=== PATIENT | male | born 1960 | race Hispanic/Latino ===

== ENCOUNTER 2021-07-15 14:52 | Inpatient (IN) | payer BC ==
[2021-07-15 15:41] LABS: Absolute Lymphocytes (CBC) 0.8 K/uL (0.7-4.9); Basophils % 0.9 % (0-1.3); Hematocrit 26.1 % (39.6-49.0); Lymphocytes % 12.6 % (15.3-44.8); MPV 7.2 fL (7.6-11.3); RBC Red Blood Cell Count 2.84 M/uL (4.33-5.43)
--- NOTE | 2021-07-15 15:41 | RAD REPORT ---
EXAM DESCRIPTION: RAD - Chest Single View - 07/15/2021 3:36 pm CLINICAL HISTORY: CHEST PAIN Chest pain. COMPARISON: No comparisons FINDINGS: Portable technique limits examination quality. Mild interstitial pulmonary edema seen. The heart is upper limit normal in size. No displaced fractur es. IMPRESSION: Mild CHF.
[2021-07-15 15:44] LABS: Protime INR 1.08
[2021-07-15 17:04] LABS: Albumin 3.8 g/dL (3.4-5.0); Bilirubin Direct 0.1 mg/dL (0-0.2); Bilirubin Total 0.4 mg/dL (0.2-1.0); Magnesium 2.2 mg/dL (1.8-2.4); Potassium 5.4 mmol/L (3.5-5.1); Protein, Total 8.1 g/dL (6.4-8.2); Troponin (Emerg Dept Use Only) 0.23 ng/mL (0.0-0.045)
--- NOTE | 2021-07-15 17:18 | ER ---
Nurse's Notes [facility] Name: Ivan Parra Age: 61 yrs Sex: Male : 1960 Arrival Date: 07/15/2021 Time: 14:54 Bed 17 Private MD: Diagnosis: Unspecified combined systolic (congestive) and diastolic (congestive) heart failure;Hyperkalemia;Hyponatremia;Chest pain, unspecified-elevated troponin Presentation: 07/15 15:05 Chief complaint: Patient states: Chest pain began today, the middle of my chest hurts. ld1 Pt c/o chills and SOB. "I have recently been at [facility], low sodium and kidney damage.". Coronavirus screen: At this time, the client does not indicate any symptoms associated with coronavirus-19. Ebola Screen: No symptoms or risks identified at this time. Initial Sepsis Screen: Does the patient meet any 2 criteria? No. Patient's initial sepsis screen is negative. Does the patient have a suspected source of infection? No. Patient's initial sepsis screen is negative. Risk Assessment: Do you want to hurt yourself or someone else? Patient reports no desire to harm self or others. Onset of symptoms was July 15, 2021. 15:05 Method Of Arrival: Ambulatory ld1 15:05 Acuity: KERWIN 3 ld1 Triage Assessment: 15:09 General: Appears in no apparent distress. comfortable, Behavior is calm, cooperative, ld1 appropriate for age. Pain: Complains of pain in chest Pain does not radiate. Pain currently is 8 out of 10 on a pain scale. Quality of pain is described as stabbing, Pain began 2-3 days ago. Is continuous. Cardiovascular: Capillary refill < 3 seconds Patient's skin is warm and dry. Respiratory: Airway is patent Respiratory effort is even, unlabored, Respiratory pattern is regular, symmetrical. GI: Abdomen is round non-distended. Musculoskeletal: Reports pain in chest. Historical: - Allergies: 15:09 No Known Allergies; ld1 - Home Meds: 17:08 lisinopril 10 mg Oral tab 1 tab once daily [Active]; amlodipine 10 mg tab 1 tab once iw daily [Active]; Jentadueto XR 2.5-1,000 mg oral TBph 1 tab once daily [Active]; icosapent ethyl 1 gram oral cap 2 caps 2 times per day [Active]; rosuvastatin 40 mg oral cpSP 1 cap once daily [Active]; levocetirizine 5 mg oral tab 1 tab once daily [Active]; ferrous sulfate 325 mg (65 mg iron) Oral tab 1 tab once daily [Active]; aspirin 81 mg Oral chew 1 tab once daily [Active]; cholecalciferol (vitamin D3) oral daily [Active]; febuxostat 40 mg oral tab 1 tab once daily [Active]; - PMHx: 15:09 Kidney disease; Hypertensive disorder; Diabetes mellitus; Hypercholesterolemia; ld1 - PSHx: 17:10 kidney biopsy; iw - Immunization history:: Adult Immunizations up to date, Client reports receiving the 2nd dose of the Covid vaccine. - Social history:: Smoking status: Patient denies any tobacco usage or history of. Patient/guardian denies using alcohol. Screenin:26 Abuse screen: Denies threats or abuse. Denies injuries from another. Nutritional iw screening: No deficits noted. Tuberculosis screening: No symptoms or risk factors identified. Fall Risk IV access (20 points). Assessment: 17:01 Reassessment: Patient appears in no apparent distress at this time. Patient and/or iw family updated on plan of care and expected duration. Pain level reassessed. Patient is alert, oriented x 3, equal unlabored respirations, skin warm/dry/pink. pt still with mildly labored breathing but states he is feeling a little better. 19:45 General: Appears in no apparent distress. Behavior is calm, cooperative, Resting in bed cc4 \\T\\ talking to family member \\T\\ bedside; voices no complaints; watching TV intermittently; sinus tachycardia with no ventricular ectopy noted; VR 104; RR 22.. Respiratory: Airway is patent Breath sounds are clear bilaterally. GI: Abdomen is non-distended, Bowel sounds present X 4 quads. : voiding 800 ml clear yellow urine with no stated difficulty via urinal. EENT: Eyes clear. Nares are clear Oral mucosa is moist. Derm: No signs and/or symptoms reported regarding the dermatologic system. Skin is intact. Musculoskeletal: No signs and/or symptoms reported regarding the musculoskeletal system. Capillary refill < 3 seconds, Range of motion: intact in all extremities, Swelling Scant edema noted BLE. Vital Signs: 15:05 BP 146 / 89; Pulse 110; Resp 22; Temp 97.4(TE); Pulse Ox 98% on R/A; Weight 83.46 kg; ld1 Height 5 ft. 8 in. (172.72 cm); Pain 8/10; 17:00 BP 134 / 78; Pulse 101; Resp 24; Pulse Ox 95% on R/A; iw 18:18 BP 139 / 76; Pulse 106; Resp 18; Temp 97.8(O); Pulse Ox 95% ; sl2 19:45 BP 130 / 74; Pulse 104; Resp 22; Temp 98.2; Pulse Ox 96% on R/A; sl2 20:30 BP 122 / 71; Pulse 103; Resp 20; Pulse Ox 95% on R/A; cc4 21:30 BP 136 / 76; Pulse 109; Resp 20; Pulse Ox 95% on R/A; cc4 15:05 Body Mass Index 27.98 (83.46 kg, 172.72 cm) ld1 Vitals: 19:45 Cardiac Rhythm Assessment Regular Sinus tach. cc4 ED Course: 14:54 Patient arrived in ED. as 15:08 Karen Shaikh FNP-C is PHCP. kb 15:08 Josue Morley MD is Attending Physician. kb 15:09 Triage completed. ld1 15:09 Arm band placed on right wrist. ld1 15:13 EKG completed in triage. Results shown to . ld1 15:13 Inserted saline lock: 20 gauge in left antecubital area, using aseptic technique. Blood ld1 collected. 15:25 Maryana Isbell, RN is Primary Nurse. iw 15:26 XRAY Chest (1 view) Sent. iw 15:36 XRAY Chest (1 view) In Process Unspecified. [facility] 16:25 SARS-COV-2 RT PCR Sent. [facility] 16:25 COVID-19 SARS RT PCR (Document "Date of Onset" if Symptomatic) Sent. [facility] 17:01 Patient has correct armband on for positive identification. Placed in gown. Bed in low 5 position. Call light in reach. Side rails up X 1. Adult w/ patient. Warm blanket given. critical care rn on. Pulse ox on. NIBP on. 17:01 Initial lab(s) drawn, by ED staff, sent to lab. EKG done, by ED staff, reviewed by roya Morley MD. 17:16 Augusto Herrera is Hospitalizing Provider. kb 18:54 No provider procedures requiring assistance completed. Patient maintains SpO2 iw saturation greater than 95% on room air. 18:54 Patient admitted, IV remains in place. iw 19:15 Primary Nurse role handed off by Maryana Isbell, RN mw2 19:35 Chuyita Hernandez, RN is Primary Nurse. sl2 19:54 UR SODIUM Sent. sl2 19:54 Urine Osmolality Sent. sl2 Administered Medications: 18:20 Drug: Albuterol 2.5 mg Route: Inhalation; iw 19:45 Follow up: Response: No adverse reaction; Wheezing diminished cc4 18:20 Drug: Aspirin Chewable Tablet 324 mg Route: PO; iw 21:35 Follow up: Response: No adverse reaction cc4 18:21 Drug: Kayexalate (polystyrene) 45 grams Route: PO; iw 21:35 Follow up: Response: No adverse reaction cc4 18:21 Drug: Lasix (furosemide) 40 mg Route: IVP; Site: left antecubital; iw 19:45 Follow up: Urine output 800 ml cc4 21:35 Follow up: Urine output 200 ml cc4 Output: 19:45 Urine: 800ml; Total: 800ml. cc4 21:35 Urine: 200ml; Total: 1000ml. cc4 Outcome: 17:17 Decision to Hospitalize by Provider. kb 21:35 Admitted to Med/surg accompanied by tech, via stretcher, room 209, Report called to pawel Ernst RN. 21:35 Condition: improved 21:35 Instructed on the need for admit, Demonstrated understanding of instructions. Signatures: Dispatcher [employer] ED[facility] Karen Shaikh, SKEIN BANDER-C SKEIN BANDER-Angie Shetty as Maryana Isbell, RN TANNER Trudi Morales [facility] Ike Alejandro mw2 Elodia Cartwright RN RN 1 Nya Butcher RN RN cc4 Chuyita Hernandez, TANNER RN sl2 Corrections: (The following items were deleted from the chart) 07/16 04:34 11 21:40 Patient left the ED. cc4 cc4
--- NOTE | 2021-07-15 17:18 | EDPHYS ---
Physician Documentation [facility] Name: Ivan Parra Age: 61 yrs Sex: Male : 1960 Arrival Date: 07/15/2021 Time: 14:54 Bed 17 Private MD: ED Physician Josue Morley HPI: 07/15 18:26 This 61 yrs old Male presents to ER via Ambulatory with complaints of Chest kb Pain, Shortness Of Breath. 18:26 The patient or guardian reports chest pain that is located primarily in the substernal kb area. Onset: last night. The pain does not radiate. Associated signs and symptoms: Pertinent positives: lower extremity swelling, shortness of breath. The chest pain is described as a heaviness, a pressure. Duration: The patient or guardian reports a single episode, that is still ongoing. Modifying factors: The symptoms are alleviated by nothing. the symptoms are aggravated by nothing. Severity of pain: At its worst the pain was mild moderate in the emergency department the pain is unchanged. The patient has not experienced similar symptoms in the past. The patient has not recently seen a physician. Pt reports lower extremities edema and dyspnea on exertion for a couple of weeks. States the edema gets better after elevating feet on pillows at night. Started having substernal chest pain last night. . Historical: - Allergies: 15:09 No Known Allergies; ld1 - Home Meds: 17:08 lisinopril 10 mg Oral tab 1 tab once daily [Active]; amlodipine 10 mg tab 1 tab once iw daily [Active]; Jentadueto XR 2.5-1,000 mg oral TBph 1 tab once daily [Active]; icosapent ethyl 1 gram oral cap 2 caps 2 times per day [Active]; rosuvastatin 40 mg oral cpSP 1 cap once daily [Active]; levocetirizine 5 mg oral tab 1 tab once daily [Active]; ferrous sulfate 325 mg (65 mg iron) Oral tab 1 tab once daily [Active]; aspirin 81 mg Oral chew 1 tab once daily [Active]; cholecalciferol (vitamin D3) oral daily [Active]; febuxostat 40 mg oral tab 1 tab once daily [Active]; - PMHx: 15:09 Kidney disease; Hypertensive disorder; Diabetes mellitus; Hypercholesterolemia; ld1 - PSHx: 17:10 kidney biopsy; iw - Immunization history:: Adult Immunizations up to date, Client reports receiving the 2nd dose of the Covid vaccine. - Social history:: Smoking status: Patient denies any tobacco usage or history of. Patient/guardian denies using alcohol. ROS: 18:24 Constitutional: Negative for fever, chills, and weight loss. kb 18:24 Cardiovascular: Positive for chest pain, edema, Negative for orthopnea, palpitations, paroxysmal nocturnal dyspnea. 18:24 Respiratory: Positive for dyspnea on exertion. 18:24 All other systems are negative. Exam: 18:25 Constitutional: This is a well developed, well nourished patient who is awake, alert, kb and in no acute distress. Head/Face: Normocephalic, atraumatic. ENT: Moist Mucous membranes Respiratory: Respirations even and unlabored. No increased work of breathing, no retractions or nasal flaring. Abdomen/GI: Soft, non-tender. No distention Skin: Warm, dry with normal turgor. Normal color. MS/ Extremity: Pulses equal, no cyanosis. Neurovascular intact. Full, normal range of motion. Neuro: Awake and alert, GCS 15, oriented to person, place, time, and situation. Moves all extremities. Normal gait. Psych: Awake, alert, with orientation to person, place and time. Behavior, mood, and affect are within normal limits. 18:25 Cardiovascular: Rate: normal, Rhythm: regular, Pulses: no pulse deficits are appreciated, Heart sounds: normal, Edema: mild edema to lower extremities. Vital Signs: 15:05 BP 146 / 89; Pulse 110; Resp 22; Temp 97.4(TE); Pulse Ox 98% on R/A; Weight 83.46 kg; ld1 Height 5 ft. 8 in. (172.72 cm); Pain 8/10; 17:00 BP 134 / 78; Pulse 101; Resp 24; Pulse Ox 95% on R/A; iw 18:18 BP 139 / 76; Pulse 106; Resp 18; Temp 97.8(O); Pulse Ox 95% ; sl2 19:45 BP 130 / 74; Pulse 104; Resp 22; Temp 98.2; Pulse Ox 96% on R/A; sl2 20:30 BP 122 / 71; Pulse 103; Resp 20; Pulse Ox 95% on R/A; cc4 21:30 BP 136 / 76; Pulse 109; Resp 20; Pulse Ox 95% on R/A; cc4 15:05 Body Mass Index 27.98 (83.46 kg, 172.72 cm) ld1 MDM: 15:08 Patient medically screened. kb 18:18 Data reviewed: vital signs, nurses notes. Data interpreted: Pulse oximetry: on room air kb is 95 %. Interpretation: normal. Counseling: I had a detailed discussion with the patient and/or guardian regarding: the historical points, exam findings, and any diagnostic results supporting the discharge/admit diagnosis, lab results, radiology results, the need for further work-up and treatment in the hospital. 07/15 15:08 Order name: Basic Metabolic Panel; Complete Time: 17:08 kb 07/15 15:08 Order name: CBC with Diff; Complete Time: 15:43 kb 07/15 15:08 Order name: LFT's; Complete Time: 17:08 kb 07/15 15:08 Order name: Magnesium; Complete Time: 17:08 kb 07/15 15:08 Order name: NT PRO-BNP; Complete Time: 17:08 kb 07/15 15:08 Order name: PT-INR; Complete Time: 15:48 kb 07/15 15:08 Order name: Troponin (emerg Dept Use Only); Complete Time: 17:08 kb 07/15 15:08 Order name: XRAY Chest (1 view); Complete Time: 15:43 kb 07/15 16:21 Order name: COVID-19 SARS RT PCR (Document "Date of Onset" if Symptomatic) kb 07/15 16:22 Order name: SARS-COV-2 RT PCR; Complete Time: 17:51 EDMS 07/15 17:13 Order name: Urine Osmolality kb 07/15 17:15 Order name: Osmolality, Serum; Complete Time: 18:38 EDMS 07/15 17:15 Order name: UR SODIUM EDMS 07/15 21:11 Order name: UR SODIUM; Complete Time: 21:13 EDMS 07/15 15:08 Order name: EKG; Complete Time: 15:09 kb 07/15 15:08 Order name: Cardiac monitoring; Complete Time: 15:25 kb 07/15 15:08 Order name: EKG - Nurse/Tech; Complete Time: 15:11 kb 07/15 15:08 Order name: IV Saline Lock; Complete Time: 15:13 kb 07/15 15:08 Order name: Labs collected and sent; Complete Time: 15:13 kb 07/15 15:08 Order name: O2 Per Protocol; Complete Time: 15:25 kb 07/15 15:08 Order name: O2 Sat Monitoring; Complete Time: 15:25 kb Administered Medications: 18:20 Drug: Albuterol 2.5 mg Route: Inhalation; iw 19:45 Follow up: Response: No adverse reaction; Wheezing diminished cc4 18:20 Drug: Aspirin Chewable Tablet 324 mg Route: PO; iw 21:35 Follow up: Response: No adverse reaction cc4 18:21 Drug: Kayexalate (polystyrene) 45 grams Route: PO; iw 21:35 Follow up: Response: No adverse reaction cc4 18:21 Drug: Lasix (furosemide) 40 mg Route: IVP; Site: left antecubital; iw 19:45 Follow up: Urine output 800 ml cc4 21:35 Follow up: Urine output 200 ml cc4 Disposition: 23:18 Co-signature as Attending Physician, Josue Morley MD I agree with the assessment and yi plan of care. Disposition Summary: 07/15/21 17:17 Hospitalization Ordered Hospitalization Status: Inpatient Admission kb Provider: Augusto Herrera Location: Telemetry/MedSurg (Inpatient) kb Condition: Stable kb Problem: new kb Symptoms: are unchanged kb Bed/Room Type: Standard Room Assignment: 209(07/15/21 18:45) ja1 Diagnosis - Unspecified combined systolic (congestive) and diastolic (congestive) heart failure kb - Hyperkalemia kb - Hyponatremia kb - Chest pain, unspecified - elevated troponin kb Forms: - Medication Reconciliation Form kb - SBAR form kb Signatures: Dispatcher [employer] EDKaren Stacy, AUTOMATION/CONTROLS MANAGER-C AUTOMATION/CONTROLS MANAGER-Ckb Josue Morley MD MD cha Williams, Irene RN RN Isak Combs RN RN [email or web address] Elodia Cartwright RN RN Nya Berg RN cc4 Corrections: (The following items were deleted from the chart) 18:45 17:17 kb ja1 18:47 17:13 Davis ordered. kb iw
[2021-07-15] MEDS ORDERED: ALBUTEROL 2.5 MG/3 ML NEB SOL ONE (18:01)
[2021-07-15] MEDS ORDERED: ASPIRIN 81 MG CHEWABLE TABLET ONE (18:01)
[2021-07-15] MEDS ORDERED: FUROSEMIDE 40 MG/4 ML VIAL ONE (18:02)
[2021-07-15] MEDS ORDERED: SOD POLYSTYREN SUL 15 GM/60 ML UCUP ONE (18:02)
--- NOTE | 2021-07-15 18:32 | P.HP ---
Certification for Inpatient Patient admitted to: Inpatient With expected LOS: >2 Midnights Practitioner: I am a practitioner with admitting privileges, knowledge of patient current condition, hospital course, and medical plan of care. Services: Services provided to patient in accordance with Admission requirements found in Title 42 Section 412.3 of the Code of Federal Regulations Patient History Date of Service: 07/15/21 Reason for admission: Shortness of breath and chest pain History of Present Illness: 61-year-old gentleman with a history of chronic kidney disease, diabetes mellitus, hyponatremia, anemia receiving erythropoietin injections, recently hospitalized for hyponatremia, CHF and chronic kidney disease presented to the emergency department with a complaint of progressive shortness of breath of 2 days duration and sudden onset chest pain this morning. Patient stated he was advised by his tour actor to increase his water intake because of his renal insufficiency. Stated he has developed lower extremity swelling and progressive shortness of breath since increasing his water intake. He also stopped taking lasix. Patient reports sinus the chest pain pain radiating across his chest to his left arm. Chest pain occurred at rest. Lasted only a few min and currently resolved. He was complaining of chest tightness during my examination in the ED. In the ED, initial troponin elevated to 0.2, sodium level of 122 along with hyperkalemia. Chest x-ray showed mild CHF. EKG demonstrated ST T-wave abnormalities in the lateral leads and inferior leads. Hemoglobin of 9. Creatinine elevated to 1.8 along with non-anion gap metabolic acidosis. There is a concern for NSTEMI, CHF exacerbation and hyponatremia. Patient hospitalized for further management. - Past Medical/Surgical History -: Hypertension -: DM type 2 -: Chronic kidney disease -: Hyponatremia - Family History Mother -: Diabetes Father -: Heart disease - Social History Smoking Status: Never smoker Alcohol use: Yes Place of Residence: Home Review of Systems Other: Except as documented, all other systems reviewed and negative. Physical Examination - Physical Exam General: Alert, In no apparent distress, Oriented x3 HEENT: Atraumatic, Mucous membr. moist/pink, Sclerae nonicteric Neck: JVD not distended Respiratory: Clear to auscultation bilaterally, Normal air movement Cardiovascular: Normal S1 S2, Other (Tachycardia), Edema (1+ bilateral lower extremity pitting edema) Capillary refill: <2 Seconds Gastrointestinal: Normal bowel sounds, Soft and benign, Non-distended, No tenderness Musculoskeletal: No clubbing, No tenderness Integumentary: No rashes, No erythema, No cyanosis Neurological: Normal speech, Normal strength at 5/5 x4 extr, Cranial nerves 3-12 intact Lymphatics: No axilla or inguinal lymphadenopathy - Studies Laboratory Data (last 24 hrs) 07/15/21 15:17: PT 12.4, INR 1.08 07/15/21 15:17: WBC 6.10, Hgb 9.1 L, Hct 26.1 L, Plt Count 393 07/15/21 15:17: Sodium 122 L, Potassium 5.4 H, BUN 36 H, Creatinine 1.82 H, Glucose 100, Magnesium 2.2, Total Bilirubin 0.4, AST 27, ALT 53, Alkaline Phosphatase 130 H Assessment and Plan - Problems (Diagnosis) (1) NSTEMI (non-ST elevated myocardial infarction) Current Visit: Yes Status: Acute (2) CHF exacerbation Current Visit: Yes Status: Acute (3) Hyponatremia Current Visit: Yes Status: Acute (4) Chronic kidney disease, stage 3 Current Visit: Yes Status: Acute (5) Metabolic acidosis Current Visit: Yes Status: Acute (6) DM type 2 (diabetes mellitus, type 2) Current Visit: Yes Status: Acute - Plan Admit patient to the medical floor. Start full-dose Lovenox for elevated troponin and EKG showing ST T-wave abnormalities. Start metoprolol 25 mg b.i.d. for sinus tachycardia. Serial troponin Serial EKG. NTG p.r.n. for chest pain. Aspirin 81 mg daily. Cardiology Consult Obtain echocardiogram. Pharmacy consulted for Tolvaptan therapy. Meanwhile, IV Lasix and fluid restriction ordered for CHF and hyponatremia. Monitor BMP every 8 hrs to follow sodium level. Nephrology consult. Monitor CBC to follow hemoglobin. - Advance Directives Does patient have a Living Will: No Does patient have a Durable POA for Healthcare: No
[2021-07-15] MEDS ORDERED: NITROGLYCERIN 0.4 MG/TAB SL PRN (22:36)
[2021-07-15] MEDS ORDERED: MORPHINE 4 MG/ML SYR IV PRN (22:36)
[2021-07-15] MEDS: INSULIN -REGULAR HUMAN 50 UNIT/0.5 ML ML SQ SCH (22:36)
[2021-07-15 22:57] VITALS: BMI 27.9
[2021-07-15] MEDS: METOPROLOL TAR 25 MG TAB PO SCH (23:27)
[2021-07-15] MEDS: ENOXAPARIN 80 MG/0.8 ML SQ SCH (23:28)
[2021-07-16 03:13] LABS: Absolute Lymphocytes (CBC) 0.8 K/uL (0.7-4.9); Basophils % 1.1 % (0-1.3); Hematocrit 21.6 % (39.6-49.0); Lymphocytes % 14.9 % (15.3-44.8); MPV 6.7 fL (7.6-11.3); RBC Red Blood Cell Count 2.38 M/uL (4.33-5.43)
[2021-07-16 03:29] LABS: Potassium 4.1 mmol/L (3.5-5.1)
[2021-07-16] MEDS ORDERED: ACETAMINOPHEN 500 MG TAB PO PRN (05:07)
[2021-07-16] MEDS: INSULIN -REGULAR HUMAN 50 UNIT/0.5 ML ML SQ SCH ×4 (07:30→20:43)
[2021-07-16] MEDS: FUROSEMIDE 40 MG/4 ML VIAL IV SCH ×2 (09:44→18:28)
[2021-07-16] MEDS: ENOXAPARIN 80 MG/0.8 ML SQ SCH (09:44)
[2021-07-16] MEDS: METOPROLOL TAR 25 MG TAB PO SCH (09:44)
[2021-07-16] MEDS: ASPIRIN EC 81 MG TAB PO SCH (09:44)
--- NOTE | 2021-07-16 13:13 | EKG ---
Test Date: 2021-07-15 Test Time: 15:10:00 Aluminizer: JOAQUIN MEASUREMENT RESULTS: Intervals: Rate: 109 NH: 176 QRSD: 90 QT: 324 QTc: 436 G[place]ord: P: 46 NH: 176 QRS: 80 T: -62 INTERPRETIVE STATEMENTS: Sinus tachycardia ST & T wave abnormality, consider inferolateral ischemia Abnormal ECG No previous ECG available for comparison Electronically Signed On 07-16-21 13:10:31 CDT by Cm Schroeder
--- NOTE | 2021-07-16 13:30 | CON ---
Date of Consultation: 07/16/2021 Reason For Consultation: Elevated BUN and creatinine, fluid management. History Of Present Illness: This is a pleasant 61-year-old gentleman with significant past medical history of hypertension, diabetes complicated with neuropathy, no retinopathy, hyperlipidemia, chronic kidney disease stage 3, baseline creatinine as of June 24, 2021, 1.5, GFR of 45, hyponatremia, the patient recently admitted to the hospital at [facility]. At that time, had acute kidney injury secondary to over diuresis. The patient treated, recovered. The patient also had hyponatremia at that time with sodium 118, treated and recovered. The patient follows up with Dr. Edmondson. Because of the low blood pressure, lisinopril has been decreased to 5 mg, amlodipine decreased to 5 mg, was discontinued. The patient was discharged. According to the patient, since discharge started having episode of on and off chest pain, radiating to both shoulders, mostly with exercise, occasionally at rest. The patient's blood pressure has started been elevated. For that reason, discussed with Dr. Edmondson, his senior technical analyst, decided to increase amlodipine to 10 and increase lisinopril to 10 mg. Blood pressure started responding very well. Also, Dr. Edmondson discontinued his Lasix. The patient started having increase in leg swelling. The patient came to the hospital. Upon arrival to the hospital, found to have elevation in BUN and creatinine. Creatinine 1.8, GFR of 38. The patient was over volume. The patient was started on IV Lasix and we have been consulted. The patient denied taking any nonsteroidal. No contrast exposure. Past Medical History: Includes; 1. Hypertension. 2. Hyperlipidemia. 3. Coronary artery disease. Follows up with Dr. Ponce, Cardiology at [place]. According to him, last seen 2 years ago and at that time, stress test was negative. 4. Chronic kidney disease, baseline creatinine 1.5, GFR of 43. 5. Secondary to diabetes nephropathy, hypertension nephrosclerosis. 6. Recurrent hyponatremia. According to Dr. Edmondson, it was depletional. Superimposed with hydrochlorothiazide intake. 7. Diabetes complicated with neuropathy and nephropathy. Allergies: NO KNOWN DRUG ALLERGIES. Social History: Denied smoking. Occasional alcohol. Denied drugs abuse. Family History: Positive for diabetes and CAD. Review of Systems: Head and Neck: No red eye. No ear pain. GI: No nausea. No vomiting. : No polyuria. No dysuria. No hematuria. Filenet Developer: Not applicable. Respiratory: Has shortness of breath. Cardiovascular: Has chest pain. Endocrine: No polydipsia. Skin: No rash. Neuro: Has neuropathy. Musculoskeletal: Generalized body ache. Physical Examination: Vital Signs: When I saw the patient; blood pressure 104/56, pulse of 91, afebrile. Chest: Crackles bilateral base. Heart: S1, S2. Regular. Abdomen: Soft, nontender. Extremity: Trace edema. Neurological: Alert, oriented x3. No focal. Laboratory Data: Chest x-ray; cardiomegaly with congestion. Sodium 128, potassium 4.1, bicarb 22, BUN 39, creatinine 1.8, GFR 38, glucose 72, calcium 8.2. BNP 3900. Phosphorus 3.5. Urinalysis; +1 protein. Renal ultrasound; normal size kidney, 08/24. Assessment And Plan: 1. Acute kidney injury secondary to cardiorenal, over volume. I agree with current diuresis dose and we will monitor the patient. I agree with holding hydrochlorothiazide. We will hold KWESI inhibitor as the patient may expose to cardiac cath and we will monitor. 2. Given the anemia and proteinuria, I am going to send for serum protein electrophoresis and we will quantify the proteinuria. 3. Hypertension with the presence of acute kidney injury. Discontinue KWESI inhibitor. With the presence of low blood pressure, hold all blood pressure medications. We will utilize the blood pressure to establish better volume control. 4. Hyponatremia, mostly dilutional. I agree with Lasix. Keep holding hydrochlorothiazide. We will send for TSH, cortisol, and urine electrolyte. 5. Anemia possible secondary to anemia of chronic kidney disease with the presence of acute kidney injury. I am going to send for protein electrophoresis. We will quantify the proteinuria and we will follow up. 6. Diabetes as by primary. 7. Chest pain, over volume. We will follow up with Cardiology. We will optimize the fluid status. Thank you, Dr. Herrera for allowing us to participate in the care of your patient. Time spent examining the patient, [id number], placing orders, reviewing data, discussing with the steam and power supervisor including Nursing, discussed with other subspecialty including Critical Care and hospitalist 65 minutes. MENG Voice ID: [id number] Report ID: [id number] KAREN
--- NOTE | 2021-07-16 13:56 | ECHO ---
HEIGHT: 5 ft 8 in WEIGHT: 184 lb 0 oz DATE OF STUDY: 07/16/[address]: [email or web address] diop 2-DIMENSIONAL: YES M.MODE: YES DOPPLER: YES COLOR FLOW: YES TDS: NO PORTABLE: NO DEFINITY: NO BUBBLE STUDY: NO DIAGNOSIS: NSTEMI CARDIAC HISTORY: CATHERIZATION: NO SURGERY: NO PROSTHETIC VALVE: NO PACEMAKER: NO MEASUREMENTS (cm) DIASTOLIC (NORMALS) SYSTOLIC (NORMALS) IVSd 1.1 (0.6-1.2) LA Diam 3.7 (1.9-4.0) LVEF 54% LVIDd 4.6 (3.5-5.7) LVIDs 3.3 (2.0-3.5) %FS 28% LVPWd 1.1 (0.6-1.2) Ao Diam 2.9 (2.0-3.7) 2 DIMENSIONAL ASSESSMENT: RIGHT ATRIUM: NORMAL LEFT ATRIUM: NORMAL RIGHT VENTRICLE: NORMAL LEFT VENTRICLE: NORMAL TRICUSPID VALVE: NORMAL MITRAL VALVE: NORMAL PULMONIC VALVE: NORMAL AORTIC VALVE: NORMAL PERICARDIAL EFFUSION: NONE AORTIC ROOT: NORMAL LEFT VENTRICULAR WALL MOTION: NORMAL DOPPLER/COLOR FLOW: MILD TRICUSPID REGURGITATION. COMMENTS: MILD TRICUSPID REGURGITATION. NORMAL RIGHT VENTRICULAR SYSTOLIC PRESSURE. NORMAL LEFT VENTRICULAR SIZE AND FUNCTION. NO WALL MOTION ABNORMALITY. TECHNOLOGIST: Ghulam RIDER
[2021-07-16] MEDS ORDERED: NA CHLORIDE 0.9% 250 ML IV SCH (14:00)
--- NOTE | 2021-07-16 14:06 | P.PN ---
Subjective Date of Service: 07/16/21 Chief Complaint: Shortness of breath and chest pain Patient states he feels better today. He still reports mild chest tightness and chest pain. He states the shortness of breath has resolved. Lower extremity edema has also resolved. Troponin trended flat but slightly elevated. Physical Examination - Vital Signs Temperature: 98.8 F Blood Pressure: 121/66 Pulse: 87 Respirations: 14 Pulse Ox (%): 95 - Physical Exam General: Alert, In no apparent distress, Oriented x3 HEENT: Mucous membr. moist/pink, Sclerae nonicteric Neck: Supple, JVD not distended Respiratory: Clear to auscultation bilaterally, Normal air movement Cardiovascular: No edema, Regular rate/rhythm, Normal S1 S2, No murmurs Gastrointestinal: Normal bowel sounds, Soft and benign, No tenderness Musculoskeletal: No swelling, No tenderness Integumentary: No rashes, No erythema Neurological: Normal speech, Normal strength at 5/5 x4 extr - Studies Laboratory Data (last 24 hrs) 07/15/21 15:17: PT 12.4, INR 1.08 07/15/21 15:17: WBC 6.10, Hgb 9.1 L, Hct 26.1 L, Plt Count 393 07/15/21 15:17: Sodium 122 L, Potassium 5.4 H, BUN 36 H, Creatinine 1.82 H, Glucose 100, Magnesium 2.2, Total Bilirubin 0.4, AST 27, ALT 53, Alkaline Phosphatase 130 H Assessment And Plan - Current Problems (Diagnosis) (1) NSTEMI (non-ST elevated myocardial infarction) Current Visit: Yes Status: Acute (2) CHF exacerbation Current Visit: Yes Status: Acute (3) Hyponatremia Current Visit: Yes Status: Acute (4) Chronic kidney disease, stage 3 Current Visit: Yes Status: Acute (5) Metabolic acidosis Current Visit: Yes Status: Acute (6) DM type 2 (diabetes mellitus, type 2) Current Visit: Yes Status: Acute - Plan Continue full-dose Lovenox for elevated troponin and EKG showing ST T-wave abnormalities. Continue metoprolol 25 mg b.i.d. for sinus tachycardia. Patient seen by cardiology-Dr. Schroeder. He is planning cardiac catheterization. Patient with a history of chronic anemia, and getting erythropoietin injections monthly. Hemoglobin dropped to 7.8. Will transfuse 2 units PRBC. NTG p.r.n. for chest pain. Continue Aspirin 81 mg daily. Check stool for occult blood. Echocardiogram result is pending. Hyponatremia likely secondary to hypervolemia Hyponatremia improved with IV Lasix and fluid restriction. Continue Lasix. Monitor BMP every 8 hrs. Nephrology input appreciated. .
[2021-07-16] MEDS ORDERED: NA CHLORIDE 0.9% 50 ML ONE (18:29)
[2021-07-16] MEDS: ACETYLCYST 20% 800 MG/4 ML VIAL PO SCH (20:53)
[2021-07-17 03:48] LABS: UR PROTEIN 25.7 mg/dL (<11.9); Urine Protein/Creatinine Ratio 0.51 ratio (<0.15)
[2021-07-17 04:04] LABS: Absolute Lymphocytes (CBC) 0.9 K/uL (0.7-4.9); Basophils % 2.2 % (0-1.3); Hematocrit 28.1 % (39.6-49.0); MPV 6.8 fL (7.6-11.3); RBC Red Blood Cell Count 3.11 M/uL (4.33-5.43)
[2021-07-17 05:15] LABS: Blood Morphology Comment NOTED (NOT SEEN); Platelet Estimate ADEQ
[2021-07-17 05:21] LABS: Albumin 3.2 g/dL (3.4-5.0); BUN Blood Urea Nitrogen 38 mg/dL (7-18); Bicarbonate 24 mmol/L (21-32); Ferritin 345.6 ng/mL (26-388); Folic Acid, (Folate) > 20.0 ng/mL (3.1-17.5); Glucose Level 95 mg/dL (74-106); Phosphorus 5.1 mg/dL (2.5-4.9); Sodium Level 136 mmol/L (136-145); Transferrin 193 mg/dL (200-360); Uric Acid 6.6 mg/dL (3.5-7.2)
[2021-07-17] MEDS: INSULIN -REGULAR HUMAN 50 UNIT/0.5 ML ML SQ SCH ×4 (07:30→21:28)
[2021-07-17] MEDS: ASPIRIN EC 81 MG TAB PO SCH (09:13)
[2021-07-17] MEDS: FUROSEMIDE 40 MG/4 ML VIAL IV SCH (09:13)
[2021-07-17] MEDS: ACETYLCYST 20% 800 MG/4 ML VIAL PO SCH ×2 (09:16→21:34)
[2021-07-17] MEDS ORDERED: HEPA 1000U/500MLS 1,000 UNIT/500 ML BAG IV ONE (10:02)
[2021-07-17] MEDS ORDERED: LIDOCAINE 1% 20 ML MDV ONE (10:02)
[2021-07-17] MEDS ORDERED: ATROPINE SULF 1 MG/10 ML SYR IV ONE (10:46)
[2021-07-17] MEDS ORDERED: NA CHLORIDE 0.9% 500 ML ONE (10:46)
[2021-07-17] MEDS ORDERED: NA CHLORIDE 0.9% 0 ML ONE (10:46)
[2021-07-17] MEDS ORDERED: FENTANYL CITR 100 MCG/2 ML ONE (10:46)
[2021-07-17] MEDS ORDERED: MIDAZOLAM HCL 2 MG/2 ML INJ ONE ×2 (10:46→10:57)
[2021-07-17] MEDS ORDERED: NITROGLYCERIN/D5W 25 MG/250 ML BTL IV ONE (10:58)
[2021-07-17] MEDS ORDERED: NITROGLYCERIN 100 MCG/ML SYR (for cath lab use only) IV ONE (10:58)
[2021-07-17] MEDS: NA CHLORIDE 0.9% 1,000 ML IV SCH (11:00)
[2021-07-17] MEDS ORDERED: SOD FERRIC GLUC COMPLX/SUCROSE 250 MG in NA CHLORIDE 0.9% 250 ML IV SCH (12:00)
[2021-07-17 12:16] LABS: Absolute Lymphocytes (CBC) 0.6 K/uL (0.7-4.9); Basophils % 1.3 % (0-1.3); Hematocrit 29.5 % (39.6-49.0); MPV 6.7 fL (7.6-11.3); RBC Red Blood Cell Count 3.26 M/uL (4.33-5.43)
--- NOTE | 2021-07-17 12:20 | PN ---
Date of Progress Note: 07/17/2021 Subjective: The patient was admitted with acute kidney injury on chronic kidney disease with over volume and severe hyponatremia with non-ST elevation PA. The patient apparently planned for cardiac cath today. Over the last 24 hours, the patient being diuresed aggressively. The patient's shortness of breath has been subsided. Still has occasional chest pain. Physical Examination: Vital Signs: Blood pressure 161/91, pulse of 65, afebrile. The patient had good urine output of 2400. Chest: Crackles bilateral base. Heart: S1, S2. Regular. Abdomen: Soft, nontender. Extremity: Trace edema. Neurologic: Alert. No focality. Laboratory Data: WBC 3.5, H and H 9.4/28.1. Sodium 136, potassium 4, bicarb 24, BUN 38, creatinine 1.8, calcium 9.1, phosphorus 5.1, iron saturation 17, ferritin 345, albumin 3.2. Corrected calcium is 10. TSH of 2. PTH 128. Cortisol level of 10. Urinalysis; PC ratio is 0.5. Serum protein electrophoresis is still pending. Current Medications: The patient on include Tylenol, nitroglycerin, aspirin, Lasix 40 b.i.d. Assessment And Plan: 1. Acute kidney injury, normal-sized kidney, on chronic kidney disease, proteinuric, nonnephrotic secondary to cardiorenal, looked to me started to be in normal volume. The patient is scheduled for cardiac cath today. I am going to go ahead and hold the Lasix for the next 24 hours. We will start the patient on gentle hydration of 10 hours after the cardiac cath with 50 mL per hour. We will start the patient on Mucomyst even though that no strong data to support the efficacy of it. I had long discussion with the patient in the presence of the by bedside regarding risks, benefits, and alternatives. The patient agreed to accept the risk of contrast-induced nephropathy with possible worsening kidney function or needing even renal replacement therapy. The patient verbalized understanding. We will proceed with a cardiac cath with precautions as above. 2. Chronic kidney disease secondary to diabetes, nephropathy, hypertension nephrosclerosis with acute kidney injury as above. 3. Anemia of iron deficiency anemia. I will start the patient on IV iron and we will follow up the patient. 4. Secondary hyperparathyroidism. Calcium and phosphorus on the normal goal. We will continue current treatment. We will monitor. 5. Hyponatremia secondary to dilutional, recovered, resolved. Continue Lasix after 24 hours of cardiac cath. 6. Non-ST segment elevation myocardial infarction. Cardiac cath today as above. We will follow up with Cardiology. time spend exam the patient face to face placing order , reviewing lab and radiology data , discussing the case with the nursing staff and other team assistant including hospitalist and other health and safety consultant on the case 35 min MENG Voice ID: [id number] Report ID: [id number] MTDD
--- NOTE | 2021-07-17 13:06 | P.PN ---
Subjective Date of Service: 07/17/21 Chief Complaint: Shortness of breath and chest pain Patient reports feeling much better today. He denies any complain. His sodium level has improved to normal. Status post 2 units PRBC transfusion yesterday. Posttransfusion hemoglobin is 9. Physical Examination - Vital Signs Temperature: 98 F Blood Pressure: 124/74 Pulse: 94 Respirations: 20 Pulse Ox (%): 100 - Physical Exam General: Alert, In no apparent distress, Oriented x3 HEENT: Mucous membr. moist/pink Neck: Supple, JVD not distended Respiratory: Clear to auscultation bilaterally, Normal air movement Cardiovascular: No edema, Regular rate/rhythm, Normal S1 S2 Gastrointestinal: Soft and benign, Non-distended, No tenderness Musculoskeletal: No swelling Integumentary: No rashes Neurological: Normal strength at 5/5 x4 extr Assessment And Plan - Current Problems (Diagnosis) (1) NSTEMI (non-ST elevated myocardial infarction) Current Visit: Yes Status: Acute (2) CHF exacerbation Current Visit: Yes Status: Acute (3) Hyponatremia Current Visit: Yes Status: Acute (4) Chronic kidney disease, stage 3 Current Visit: Yes Status: Acute (5) Metabolic acidosis Current Visit: Yes Status: Acute (6) DM type 2 (diabetes mellitus, type 2) Current Visit: Yes Status: Acute - Plan Cardiac catheterization performed today. Dr. Schroeder report patient has a complex RCA lesion. PCI not done. He his discussing the images with Dr. Jimenez for the next step. Continue metoprolol 25 mg b.i.d. f Patient with a history of chronic anemia, and getting erythropoietin injections monthly. Hemoglobin dropped to 7.8. Status post 2 units PRBC. Posttransfusion hemoglobin is up to 9. Continue Aspirin 81 mg daily. Echocardiogram shows normal EF. Stool for occult blood. Hyponatremia likely secondary to hypervolemia. Hyponatremia resolved with IV Lasix and fluid restriction. Continue Lasix. Patient given a acetylcysteine pre and post cardiac catheterization to reduce incidence of contrast nephropathy given baseline renal insufficiency. Monitor BMP Nephrology input appreciated. .
[2021-07-17] MEDS ORDERED: NITROGLYCERIN 0.4 MG/TAB SL PRN (13:30)
[2021-07-17] MEDS: ACETAMINOPHEN 325 MG TABLET PO PRN ×2 (16:31→21:28)
[2021-07-17] MEDS ORDERED: CLOPIDOGREL 75 MG TABLET PO ONE (21:00)
--- NOTE | 2021-07-17 21:22 | OP ---
Date of Procedure: 07/17/2021 Surgeon: Cm Scrhoeder MD Repair Coil Winder: Mr. Woo Panchal. The patient brought to the curb and gutter laborer on 07/17/2021 because of non-STEMI. He has diabetes, dyslipidemi a, high cholesterol, classic acute coronary syndrome symptoms. In the curb and gutter laborer, he was prepped and d raped in the routine sterile fashion. Given Versed and fentanyl for sedation, 10 cc was used to anes thetize the right groin. A 6-Lebanese sheath introduced using the Seldinger technique. Angiography th ere was normal. StarClose was used to close the case. Elena catheter, left and right were used to cannulate the left main and the right main. He had diffuse plaquing in the left main and LAD withou t any focal significant stenosis. The RCA had a 95% ostial lesion. 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 There were no complications. Blood Loss: 5 cc. Postoperative Diagnosis: Severe right coronary artery stenosis. He needs a right coronary artery st ent. I am uncomfortable doing this stent here because it is high risk especially with the circumflex takeoff right at the lesion. I will discuss the case with Dr. Mayer. He will review the films. We will keep the patient on medication. Hopefully, [facility]. I will discuss the case further with Dr. Herrera. Anesthesia: Total conscious sedation 45 minutes. LALO/MELANY Voice ID: [id number] Report ID: [id number]
[2021-07-17] MEDS: GUAIFENESIN 600 MG SA TAB PO SCH (21:37)
[2021-07-18] MEDS: NA CHLORIDE 0.9% 1,000 ML IV SCH (01:16)
[2021-07-18 04:15] VITALS: TEMP 97.9
[2021-07-18 05:37] LABS: Absolute Lymphocytes (CBC) 0.7 K/uL (0.7-4.9); Basophils % 1.9 % (0-1.3); Hematocrit 30.7 % (39.6-49.0); MPV 6.4 fL (7.6-11.3); RBC Red Blood Cell Count 3.38 M/uL (4.33-5.43)
[2021-07-18 05:49] LABS: Albumin 3.3 g/dL (3.4-5.0); Phosphorus 4.3 mg/dL (2.5-4.9); Potassium 4.1 mmol/L (3.5-5.1)
[2021-07-18] MEDS: INSULIN -REGULAR HUMAN 50 UNIT/0.5 ML ML SQ SCH ×3 (07:30→16:30)
--- NOTE | 2021-07-18 08:23 | P.PN ---
Subjective Date of Service: 07/19/21 Chief Complaint: Shortness of breath and chest pain Subjective: No new changes Physical Examination - Vital Signs Temperature: 97.9 F Blood Pressure: 140/75 Pulse: 84 Respirations: 20 Pulse Ox (%): 98 - Physical Exam General: Other (Appears as his stated age) HEENT: Atraumatic, Normocephalic Neck: JVD not distended Respiratory: Other (Symmetric chest expansion) Cardiovascular: No rubs, No murmurs Gastrointestinal: Soft and benign, Non-distended Musculoskeletal: No clubbing Integumentary: Other (Normal temp) Neurological: Other (Non-focal) Urinary: Other (No bladder distention) External genitalia: Deferred Rectal: Deferred Assessment And Plan - Plan 1. Acute kidney injury, normal-sized kidney, on chronic kidney disease, proteinuric, nonnephrotic secondary to CRS1. Renal fxn improving. Underwent LHC yesterday & PCI today. Recheck renal panel on 07/22/21 to assess for RAUL. 2. Chronic kidney disease secondary to diabetes, nephropathy, hypertension nephrosclerosis with acute kidney injury as above. Monitor renal panel. 3. NSTEMI. S/p LHC on 07/17 w/c severe RCA stenosis. S/p PCI on 07/18. 4. Anemia of iron deficiency anemia. Received IV iron. Monitor H/H. 5. Secondary hyperparathyroidism. Monitor Ca & Phos. 6. Dispo. January dc later today.
[2021-07-18] MEDS ORDERED: CLOPIDOGREL 75 MG TABLET PO SCH (09:00)
[2021-07-18] MEDS: GUAIFENESIN 600 MG SA TAB PO SCH (09:16)
[2021-07-18] MEDS: ASPIRIN EC 81 MG TAB PO SCH (09:16)
[2021-07-18] MEDS: ACETYLCYST 20% 800 MG/4 ML VIAL PO SCH (09:25)
[2021-07-18] MEDS ORDERED: HEPA 1000U/500MLS 2,000 UNIT/1,000 ML BAG IV ONE (09:42)
[2021-07-18] MEDS ORDERED: LIDOCAINE 1% 20 ML MDV ONE (09:42)
[2021-07-18] MEDS ORDERED: MIDAZOLAM HCL 2 MG/2 ML INJ ONE (09:48)
[2021-07-18] MEDS ORDERED: FENTANYL CITR 100 MCG/2 ML ONE (09:49)
[2021-07-18] MEDS ORDERED: NITROGLYCERIN 100 MCG/ML SYR (for cath lab use only) IV ONE (09:49)
[2021-07-18] MEDS ORDERED: HEPARIN 5000 UNIT/ML 1 ML VIAL ONE (09:49)
[2021-07-18] MEDS ORDERED: VERAPAMIL HCL 10 MG/4 ML VIAL IV ONE (09:49)
[2021-07-18] MEDS ORDERED: ATROPINE SULF 1 MG/10 ML SYR IV ONE (09:49)
[2021-07-18] MEDS ORDERED: NITROGLYCERIN/D5W 25 MG/250 ML BTL IV ONE (09:50)
[2021-07-18] MEDS ORDERED: HEPA 1000U/500MLS 1,000 UNIT/500 ML BAG IV ONE (10:15)
[2021-07-18] MEDS ORDERED: METOPROLOL TARTRATE 5 MG/5 ML INJ IV ONE (10:47)
[2021-07-18] MEDS ORDERED: NA CHLORIDE 0.9% 1,000 ML IV SCH (13:16)
--- NOTE | 2021-07-18 14:23 | P.DS ---
Admission Date: 07/15/21 Discharge Date: 07/18/21 Disposition: ROUTINE DISCHARGE Discharge Condition: FAIR Reason for Admission: Shortness of breath and chest pain - Problems (1) NSTEMI (non-ST elevated myocardial infarction) Current Visit: Yes Status: Acute (2) CHF exacerbation Current Visit: Yes Status: Acute (3) Hyponatremia Current Visit: Yes Status: Acute (4) Chronic kidney disease, stage 3 Current Visit: Yes Status: Acute (5) Metabolic acidosis Current Visit: Yes Status: Acute (6) DM type 2 (diabetes mellitus, type 2) Current Visit: Yes Status: Acute (7) Coronary artery disease Current Visit: Yes Status: Acute Brief History of Present Illness: 61-year-old gentleman with a history of chronic kidney disease, diabetes mellitus, hyponatremia, anemia receiving erythropoietin injections, recently hospitalized for hyponatremia, CHF and chronic kidney disease presented to the emergency department with a complaint of progressive shortness of breath of 2 days duration and sudden onset chest pain this morning. Patient stated he was advised by his tone cabinet assembler to increase his water intake because of his renal insufficiency. Stated he has developed lower extremity swelling and progressive shortness of breath since increasing his water intake. He also stopped taking lasix. Patient reports sinus the chest pain pain radiating across his chest to his left arm. Chest pain occurred at rest. Lasted only a few min and currently resolved. He was complaining of chest tightness during my examination in the ED. In the ED, initial troponin elevated to 0.2, sodium level of 122 along with hyperkalemia. Chest x-ray showed mild CHF. EKG demonstrated ST T-wave abnormalities in the lateral leads and inferior leads. Hemoglobin of 9. Creatinine elevated to 1.8 along with non-anion gap metabolic acidosis. There is a concern for NSTEMI, CHF exacerbation and hyponatremia. Patient hospitalized for further management. Hospital Course: Patient admitted to the medical floor and started on NSTEMI protocol with full- dose Lovenox, aspirin, Lipitor. Troponin trended flat. Patient seen by cardiology-Dr. Schroeder will performed cardiac catheterization. Dr. Schroeder reported patient has a complex RCA lesion. PCI not done intially. Dr. Jimenez performed cardiac catheterization unsuccessful PCI today. Patient also treated with metoprolol 25 mg b.i.d. Patient with a history of chronic anemia, and getting erythropoietin injections monthly. Hemoglobin dropped to 7.8. He was given 2 units PRBC. Posttransfusion hemoglobin up to 10. Echocardiogram shows normal EF. He is prescribed aspirin and Plavix. He was treated for acute diastolic CHF with IV Lasix. Hyponatremia likely secondary to hypervolemia. Hyponatremia resolved with IV Lasix and fluid restriction. Patient given a acetylcysteine pre and post cardiac catheterization to reduce incidence of contrast nephropathy given baseline renal insufficiency. His renal function was stable. Patient seen by nephrology who assisted with management. Dr. Edmondson is planning a repeat renal function tests next week to make sure patient does not developed contrast nephropathy. Patient deemed clinically stable for discharge by cardiology and nephrology. Vital Signs/Physical Exam: Temp Pulse Resp BP Pulse Ox 97.9 F 97 H 18 175/67 H 98 07/18/21 12:47 07/18/21 13:50 07/18/21 13:50 07/18/21 13:50 07/18/21 12:47 General: Alert, In no apparent distress, Oriented x3 HEENT: Mucous membr. moist/pink Neck: JVD not distended Respiratory: Clear to auscultation bilaterally, Normal air movement Cardiovascular: No edema, Regular rate/rhythm, Normal S1 S2 Gastrointestinal: Normal bowel sounds, Soft and benign, Non-distended, No tenderness Musculoskeletal: No swelling Integumentary: No rashes Neurological: Normal strength at 5/5 x4 extr Laboratory Data at Discharge: WBC 4.10 K/uL (4.3-10.9) L 07/18/21 05:23 Hgb 10.2 g/dL (13.6-17.9) L 07/18/21 05:23 Hct 30.7 % (39.6-49.0) L 07/18/21 05:23 Plt Count 413 K/uL (152-406) H 07/18/21 05:23 PT 12.4 SECONDS (9.5-12.5) 07/15/21 15:17 INR 1.08 07/15/21 15:17 Sodium 141 mmol/L (136-145) 07/18/21 05:23 Potassium 4.1 mmol/L (3.5-5.1) 07/18/21 05:23 BUN 33 mg/dL (7-18) H 07/18/21 05:23 Creatinine 1.60 mg/dL (0.55-1.3) H 07/18/21 05:23 Glucose 87 mg/dL (74-106) 07/18/21 05:23 Uric Acid 6.6 mg/dL (3.5-7.2) D 07/17/21 03:36 Phosphorus 4.3 mg/dL (2.5-4.9) 07/18/21 05:23 Magnesium 2.2 mg/dL (1.8-2.4) 07/15/21 15:17 Total Bilirubin 0.4 mg/dL (0.2-1.0) 07/15/21 15:17 AST 27 U/L (15-37) 07/15/21 15:17 ALT 53 U/L (12-78) 07/15/21 15:17 Alkaline Phosphatase 130 U/L (45-117) H 07/15/21 15:17 Troponin I 0.33 ng/mL (0.0-0.045) H 07/16/21 06:38 Home Medications: Amlodipine [Norvasc*] 10 mg PO DAILY 07/16/21 Aspirin 81 mg PO DAILY 07/16/21 Cholecalciferol (Vitamin D3) [Vitamin D3] 50 mcg PO DAILY 07/16/21 Ezetimibe/Rosuvastatin Calcium [Rosuvastatin-Ezetimibe 40-10Mg] 1 each PO DAILY 6PM 07/16/21 Febuxostat 40 mg PO DAILY 07/16/21 Ferrous Sulfate 325 mg PO DAILY 07/16/21 Icosapent Ethyl [Vascepa] 1 gm PO TID 07/16/21 Levocetirizine Dihydrochloride [24Hr Allergy Relief] 5 mg PO DAILY 07/16/21 Clopidogrel Bisulfate [Plavix] 75 mg PO DAILY #30 tablet 07/18/21 New Medications: Clopidogrel Bisulfate [Plavix] 75 mg PO DAILY #30 tablet Diet: ADA Activity: Ad anjali Followup: [facility] [Provider Group] - 1-2 Weeks (Follow up in 2 weeks, call to schedule an appointment ) [facility]OU [facility] [Primary Care Provider] - Michelle Edmondson [ACTIVE - CAN ADMIT] - 1 Week Time spent managing pt's care (in minutes): 42
[2021-07-18 17:13] VITALS: O2SAT 93
--- NOTE | 2021-07-18 22:56 | OP ---
Date of Procedure: 07/18/2021 Surgeon: ARTUR HAYNES Procedures Performed: 1.IVUS of the ostial and proximal RCA. 2.IVUS of proximal and ostial accessory left circumflex artery. 3.PCI of severe ostial and proximal RCA stenosis using 4.0 x 60 mm Synergy drug-eluting stent postdi lated using 5.0 x 8 mm NC balloon. 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 I used a 3.0 x 12 mm Synergy drug-eluting stent. 5.Bilateral inflation kissing of the both ostiums of the RCA and the accessory left circumflex using 4.0 x 50 mm NC balloon in the RCA and 3.0 x 50 mm NC balloon in the left circumflex. Excellent resu lts at the end. 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 Complications: None. Bleeding: Less than 10 mL. Total Sedation Time: 65 minutes. Accessory radial artery closed with TR band. Complications: None. Description Of Procedure: After risks, benefits, alternatives were explained, the patient agreed to proceed and signed informed consent. The patient was brought into [facility] cardiac catheterization [facility], prepped and draped in usual sterile fashion and then we accessed right radial artery using pedi atric micropuncture kit and then placed a 6-[place] slender sheath and took a 6-[place] 3DRC guide into the aortic root and engaged the right coronary artery and gave systemic heparin to assure ACT level above 250. The patient was loaded with 600 mg of Plavix yesterday and received 75 mg today as well a s aspirin. I took a short run-through wire into the RCA, placed it into the distal part of the arter y, took another short run-through wire, placed it in anomalous left circumflex, placed it distally, a nd then prepped the RCA lesion using multiple balloons including [place] 3.75 x 10 mm, NC balloon 4 .5 x 15 mm, and IVUS was done. Also there was some significant amount of calcium, but was not 360 de grees. The lesion expanded to a satisfactory level. Then, I placed a stent 4 x 16 mm. Then moved t o prep the lesion of the circ and then it was much easier to prep and placed the stent of 3.0 x 12 mm drug-eluting stent and later took a 5.0 x 8 mm NC balloon into the RCA stent and post dilated the pr oximal portion. Then, I took a 4.0 x 15 mm NC balloon into the RCA and a good part of it was hanging in the aorta and took 3.0 x mm NC balloon to the anomalous left circumflex and did bilate ral inflation kissing. Then I took the IVUS catheter to see their position. There was no complicati on of dissection and the stents were very well apposed in the luminal area, post stenting was more th an 9 mm2 of the ostium of the RCA angiographically. Results were satisfactory. I removed the wire a nd the guide sheath was removed and placed TR band with good hemostasis. Total amount of contrast us e was 35 CC. The patient was stable at the recovery. 1. PCI of ostial RCA stenosis as above. 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 Plan: Aspirin, Plavix, high-dose statin. Follow up with me in the office in 1 week. SR/MODL Voice ID: [id number] Report ID: [id number]
[2021-07-19 07:35] VITALS: BP 140/75
--- NOTE | 2021-07-21 08:56 | CON ---
Date of Consultation: 07/16/2021 Reason For Consultation: [id number] myocardial infarction. History Of Present Illness: Mr. Parra is 61. Had come in with chest pain, shortness of breath, ch est pain radiated to both arms with exertional. He had nausea, diaphoresis, shortness of breath. De nied PND, orthopnea, pedal edema, palpitations, or syncope. Denied any fever or chills. He has elev ated troponin. I was consulted. Allergies: NONE. Review of Systems: Negative. Social History: Negative. Family History: Negative. Medications: At home include lisinopril, amlodipine, . He takes Crestor 40. He takes Syn throid, iron, aspirin. Past Medical History: Includes chronic renal disease, hypertension, diabetes, and dyslipidemia. Physical Examination: Vital Signs: Blood pressure 146/69. He was in sinus tach. HEENT: Negative. Neck: Supple with no bruit. Chest: Clear. Cardiac: Revealed a regular rhythm and rate. No murmurs, gallops, or rubs. Abdomen: Benign. Extremities: Revealed no clubbing, cyanosis, or edema. Diagnostic Data: Showed a creatinine of 1.6. Hemoglobin was 9.4. Troponin was positive. EKG showe d inferolateral ischemia. Echocardiogram showed a normal ejection fraction. Impression And Plan: 1.[id number] myocardial infarction. 2.Diabetes. 3.Hypertension. 4.Dyslipidemia. 5.Renal insufficiency, stage 3. Nephrology is following. I think Mucomyst before and af ter the catheterization. I would like him to be transfused to keep his hemoglobin about 8 before we do any catheterization. He will need a catheterization to define his coronary anatomy. He understan ds the risk and the benefits of the procedure and he agrees to proceed. LALO/MELANY Voice ID: [id number] Report ID: [id number]
[2021-07-21 16:11] LABS: Albumin, (SPE) 3.4 g/dL (3.8-4.8); Alpha-1-Globulins 0.4 g/dL (0.2-0.3); Gamma Globulins 0.9 g/dL (0.8-1.7); INTERPRETATION REPORT
[2021-07-22 11:38] LABS: Vitamin D 1,25-Dihydroxy Total 20 pg/mL (18-72); Vitamin D,1,25-OH2, D2 <8 pg/mL
--- OUTSIDE RECORDS SUMMARY | 2021-07-26 08:21 | XMS REPORT | Continuity of Care Document ---
:1960 Author Organization [facility] t Address [address] [place] [address] Dr. Tsai [address] [place] [address] Care Team Providers Name Role Phone Lester Hill Primary Care Physician TED Attending Clinician Unavailable Alondra HART, A Attending Clinician Unavailable Ted COATS Attending Clinician MIRA Attending Clinician Unavailable SHIVANI Attending Clinician Unavailable YANG Attending Clinician Unavailable TED Admitting Clinician Unavailable Ted COATS Admitting Clinician YANG Admitting Clinician Unavailable Payers Payer Name Policy Type Policy Number Effective Date Expiration Date S ourkathrin [facility] - [id number] 2021 00:00:00 OUT OF STATE Problems Condition Condition Condition Status Onset Resolution Last Treating Co mments Source Name Details Category Date Date Treatment Clinician Date Hyponatrem Hyponatrem Disease Active 2020-09 U nivers ia ia 0-07 ity of syndrome syndrome 00:00: [address] Allergies, Adverse Reactions, Alerts Allergy Allergy Status Severity Reaction(s) Onset Inactive Treating Comm ents Source Name Type Date Date Clinician NO KNOWN Drug Active Univers ALLERGIE Class ity of S [facility] [place] [facility] Social History Social Habit Start Date Stop Date Quantity Comments Source Exposure to Not sure [facility] SARS-CoV-2 [facility] (event) Branch Tobacco use and 2021-06-19 2021-06-19 Never used Universit y of exposure 00:00:00 00:00:00 [facility] [place] [facility] Alcohol intake 2021-06-19 2021-06-19 Ex-drinker [facility] 00:00:00 00:00:00 (finding) [facility] [place] [facility] Sex Ass[birth year] At [birth year] Universit y of 00:00:00 00:00:00 [facility] [place] [facility] Smoking Status Start Date Stop Date Source Never smoker [facility] Medications Ordered Filled Start Stop Current Ordering Indication Dosage Frequency Signature Comments Components Source Medication Medication Date Date Medication? Clinician (SIG) Name Name amLODIPine 2020-09 Yes [id number] 5mg Take 1 U nivers 5 mg tablet 0-10 tablet by ity of 00:00: mouth [place] 00 daily. Medical Branch cholecalcif 2020-09 Yes [id number] 2000U Take 2 Univers savanah, 0-10 tablets by ity of vitamin D3, 00:00: mouth [place] 25 mcg 00 daily. Medical (1,000 Branch unit) tablet lisinopriL 2020-09 Yes [id number] 5mg Take 1 U nivers 5 mg tablet 0-10 tablet by ity of 00:00: mouth [place] 00 daily. Medical Branch amLODIPine 2020-09 Yes [id number] 5mg Take 1 U nivers 5 mg tablet 0-10 tablet by ity of 00:00: mouth [place] 00 daily. [facility] Branch cholecalcif 2020-09 Yes [id number] 1999U Take 2 Univers savanah, 0-10 tablets by ity of vitamin D3, 00:00: mouth [place] 25 mcg 00 daily. Medical (1,000 Branch unit) tablet lisinopriL 2020-09 Yes [id number] 5mg Take 1 U nivers 5 mg tablet 0-10 tablet by ity of 00:00: mouth [place] 00 daily. [facility] Branch febuxostat 2020-09 Yes [id number] 40mg 40 mg, U nivers (ULORIC) 0-09 Oral, ity of tablet 40 14:00: DAILY, [place] mg 00 First dose Medical on [facility] 06/21/21 at 0900, Until Discontinu ed, Routine lisinopriL 2020-09 Yes [id number] 5mg 5 mg, Un chani (PRINIVIL,Z 0-09 Oral, ity of ESTRIL) 14:00: DAILY, [place] tablet 5 mg 00 First dose Me dical on [facility] 06/21/21 at 0900, Until Discontinu ed, Routine ferrous 2020-09 Yes 325mg Take 325 Unive rs sulfate 325 0-09 mg by ity of mg (65 mg 11:52: mouth [place] iron) 04 daily. Medical tablet Branch aspirin 81 2020-09 Yes 81mg Take 81 mg U nivers mg chewable 0-09 by mouth ity of tablet 11:52: daily. [address] Branch levocetiriz 2020-09 Yes 5mg Take 5 mg U nivers ine 5 mg 0-09 by mouth ity of tablet 11:52: daily. [address] Branch rosuvastati 2020-09 Yes 40mg Take 40 mg Univers n 40 mg 0-09 by mouth ity of tablet 11:52: every [place] 04 evening. Medical With [place] dinner linagliptin 2020-09 Yes 1{tbl} Take 1 Un chani -metformin 0-09 tablet by ity of (JENTADUETO 11:52: mouth 2 Naresh as ) 2.5-500 04 (two) Medical mg Tab times Branch daily. icosapent 2020-09 Yes 1{capsu Take 1 Uni vers ethyL 1 0-09 le} capsule by ity of gram 11:52: mouth 2 [place] capsule 04 (two) Medical times Branch daily. Diflupredna 2020-09 Yes 1[drp] Place 1 U nivers te 0-09 Drop in ity of (DUREZOL) 11:52: each eye 2 [place] 0.05 % Drop 04 (two) Medical times [place] daily. Both eyes ferrous 2020-09 Yes 325mg Take 325 Unive rs sulfate 325 0-09 mg by ity of mg (65 mg 11:52: mouth [place] iron) 04 daily. Medical tablet Branch aspirin 81 2020-09 Yes 81mg Take 81 mg U nivers mg chewable 0-09 by mouth ity of tablet 11:52: daily. [address] Branch levocetiriz 2020-09 Yes 5mg Take 5 mg U nivers ine 5 mg 0-09 by mouth ity of tablet 11:52: daily. [address] Branch rosuvastati 2020-09 Yes 40mg Take 40 mg Univers n 40 mg 0-09 by mouth ity of tablet 11:52: every [place] 04 evening. Medical With Branch dinner linagliptin 2020-09 Yes 1{tbl} Take 1 Un chani -metformin 0-09 tablet by ity of (JENTADUETO 11:52: mouth 2 Naresh as ) 2.5-500 04 (two) Medical mg Tab times Branch daily. icosapent 2020-09 Yes 1{capsu Take 1 Uni vers ethyL 1 0-09 le} capsule by ity of gram 11:52: mouth 2 [place] capsule 04 (two) Medical times Branch daily. Diflupredna 2020-09 Yes 1[drp] Place 1 U nivers te 0-09 Drop in ity of (DUREZOL) 11:52: each eye 2 [place] 0.05 % Drop 04 (two) Medical times Branch daily. Both eyes lisinopriL 2020-09 40mg Take 40 mg Univers 40 mg 0-09 by mouth 2 ity of tablet 09:27: 00:00 (two) [place] 02 :00 times Medical daily. Branch hydrALAZINE 2020-09 50mg Take 50 mg Univers 50 mg 0-05 23-09 by mouth 3 ity of tablet 09:27: 00:00 (three) [place] 02 :00 times Medical daily. Branch furosemide 2020-09 No 20mg Take 20 mg Univers 20 mg 0-09 -09 by mouth ity of tablet 09:27: 00:00 every [place] 02 :00 morning Medical and Branch evening. 0800 am and 1400 febuxostat 2020-09 Yes [id number] 40mg Take 1 U nivers 40 mg 0-09 tablet by ity of tablet 00:00: mouth [place] 00 daily. Medical Branch febuxostat 2020-09 Yes [id number] 40mg Take 1 U nivers 40 mg 0-09 tablet by ity of tablet 00:00: mouth [place] 00 daily. Medical Branch NaCl 0.9% 2020-09 Yes [id number] IV Unive rs (NS) IV 0-08 Infusion, ity of infusion 19:15: at 100 [place] 00 mL/hr, Medical CONTINUOUS Branch , Starting on Wed06/20/21 at 1415, Until Discontinu ed, STAT amLODIPine 2020-09 Yes [id number] 5mg 5 mg, Un chani (NORVASC) 0-08 Oral, ity of tablet 5 mg 14:00: DAILY, [place] 00 First dose Medical on Wed Branch 06/20/21 at 0900, Until Discontinu ed, Routine aspirin 2020-09 Yes 81mg 81 mg, Univers chewable 0-08 Oral, ity of tablet 81 14:00: DAILY, [place] mg 00 First dose Medical on Wed Branch 06/20/21 at 0900, Until Discontinu ed, Routine NaCl 0.9% 2020-09- No [id number] IV Univ ers (NS) IV 0-08 10-08 Infusion, ity of infusion 13:30: 19:02 at 75 [place] 00 :45 mL/hr, Medical CONTINUOUS Branch , Starting on Wed06/20/21 at 0830, Until Wed06/20/21 at 1402, STAT heparin 2020-09 Yes 5000U 5,000 Univers (porcine) 0-08 Units, ity of injection 11:00: Subcutaneo [place] 5,000 Units 00 us, Q8H, [facility] First dose Branch on Wed06/20/21 at 0600, Until Discontinu ed, Routine rosuvastati 2020-09 Yes [id number] 40mg 40 mg, Univers n (CRESTOR) 0-08 Oral, QHS, it y of tablet 40 02:00: First dose [place] mg 00 on [facility] 06/19/21 at Branch 2100, Until Discontinu ed, Routine ferrous 2020-09 Yes [id number] 325mg 325 mg, Un chani sulfate 0-08 Oral, BID, ity of tablet 325 01:00: First dose [place] mg 00 on [facility] Medical 06/19/21 at Branch 2000, Until Discontinu ed, Routine hydrALAZINE 2020-09- No [id number] 50mg 50 mg, Univers (APRESOLINE 0-08 10-08 Oral, BID, i ty of ) tablet 50 01:00: 02:31 1 dose, [place] mg 00 :00 First dose Medical (after Branch last modificati on) on [facility] 06/19/21 at 2000, Routine NaCl 0.9% 2020-09- No [id number] IV Univ ers (NS) IV 0-07 10-08 Infusion, ity of infusion 23:45: 13:20 at 100 [place] 00 :01 mL/hr, Medical CONTINUOUS Branch , Starting on Wed06/19/21 at 1845, Until Wed06/20/21 at 0820, STAT lactated 2020-09- No 1000mL at 75 Unive rs ringers IV 0-07 10-07 mL/hr, ity of infusion 17:30: 22:41 1,000 mL, Na[place] as 1,000 mL 00 :56 IV Medical Infusion, Branch CONTINUOUS , Starting on [place] 06/19/21 at 1230, Until [place] 06/19/21 at 1741, Routine Sliding 2020-09 Yes Subcutaneo Univ ers Scale 0-07 us, TID ity of Insulin - 17:00: MEALS+HS, Na[place] as Lispro 00 First dose Medical (HumaLOG) + on [place] Branch Fsbg 06/19/21 at Testing 1200, Until Discontinu ed, Routine glucagon 2020-09 Yes 1mg 1 mg, Univers (GLUCAGEN 0-07 Intramuscu ity of DIAGNOSTIC 15:05: lar, PRN, [place] KIT) 01 Starting Medical injection 1 on [place] Branch mg 06/19/21 at 1005, Until Discontinu ed, LOBO, Blood Glucose < or = 70 mg/dL and patient is unable to swallow or has mental changes. dextrose 50 2020-09 Yes 25mL 25 mL, Univ ers % in water 0-07 Slow IV ity of (D50W) 15:05: Push, PRN, [place] injection 01 Starting Medica l 25 mL on [place] Branch 06/19/21 at 1005, Until Discontinu ed, LOBO, Blood Glucose < or = 70 mg/dL and patient is unable to swallow or has mental status changes. cholecalcif 2020-09 Yes [id number] 2000U 2,000 Univers [place] 0-07 Units, ity of (vitamin 14:45: Oral, Mikhail D3) tablet 00 DAILY, Medical 2,000 Units First dose Br anch on [place] 06/19/21 at 0945, Until Discontinu ed, Routine acetaminoph 2020-09 Yes 650mg 650 mg, Un chani en 0-07 Oral, ity of (TYLENOL) 14:18: Q6HPRN, [place] tablet 650 47 Starting Medic al mg on [place] Branch 06/19/21 at 0918, Until Discontinu ed, Routine, Pain (scale 1-3) glimepiride 2020-09- No 4mg Take 4 mg Univers 4 mg tablet 006-19 by mouth ity of 12:08: 00:00 daily with [place] 53 :00 breakfast. Medical Branch bisoproloL- 2020-09- No 1{tbl} Take 1 U nivers hydrochloro 0-07 10-07 tablet by it y of thiazide 12:08: 00:00 mouth 2 [place] 10-6.25 mg 53 :00 (two) Medical per tablet times Branch daily. Immunizations Ordered Filled Immunization Date Status Comments Sour e Immunization Name Name Pneumococcal 2021-06-21 Completed [place] o f Polysaccharide, 00:00:00 [place] Med ical PPSV23 (PNEUMOVAX) Branch Pneumococcal 2021-06-21 Completed [place] o f Polysaccharide, 00:00:00 [place] Med ical PPSV23 (PNEUMOVAX) Branch Influenza Virus 2020-07-14 Completed Universit y of Vaccine Quad IM 00:00:00 [place] Med ical Multi-dose 6+ MO Branch Influenza Virus 2020-07-14 Completed Universit y of Vaccine Quad IM 00:00:00 [place] Med ical Multi-dose 6+ MO [place] Vital Signs Vital Name Observation Time Observation Value Comments Source Heart rate 2021-06-21 14:00:00 88 /min [facility] Respiratory rate 2021-06-21 14:00:00 13 /min [facility] Oxygen saturation in 2021-06-21 14:00:00 98 /min [facility] Arterial blood by [facility] Pulse oximetry Branch Systolic blood 2021-06-21 13:02:00 151 mm[Hg] Univer sity of pressure [facility] [place] [facility] Diastolic blood 2021-06-21 13:02:00 75 mm[Hg] [facility] Body temperature 2021-06-21 13:02:00 36.22 [facility] Body weight 2021-06-20 09:51:00 82.464 kg [facility] BMI 2021-06-20 09:51:00 27.64 kg/m2 [facility] Body height 2021-06-19 20:00:00 172.7 cm [facility] Procedures Procedure Date / Time Performing Clinician Source Performed POCT GLUCOSE (AUTOMATED) 2021-06-21 13:21:00 [facility] 2021-06-21 10:35:00 Delvis [facility] OSMOLALITY URINE 2021-06-21 10:35:00 Delvis [facility] RENAL PANEL 2021-06-21 10:35:00 Delvis, [facility] ELECTROLYTES PANEL 2021-06-21 10:35[facility] ([id number]NA, K, CL, CO2) Medical Branch POTASSIUM, URINE RANDOM 2021-06-21 10:35:00 Delvis, [facility] SODIUM, URINE RANDOM 2021-06-21 10:35:00 [facility] 2021-06-21 01:20[facility] ([id number][facility]NA, K, CL, CO2) Medical [place] POCT GLUCOSE (AUTOMATED) 2021-06-21 01:14:00 Magdaleno Hughes [facility] POCT GLUCOSE (AUTOMATED) 2021-06-20 22:05:00 Magdaleno Hughes [facility] ELECTROLYTES PANEL 2021-06-20 17:24:00 [facility] ([id number][facility]NA, K, CL, CO2) Medical Branch OSMOLALITY URINE 2021-06-20 10:13:00 Delvis, [facility] POTASSIUM, URINE RANDOM 2021-06-20 10:13:00 Delvis, [facility] SODIUM, URINE RANDOM 2021-06-20 10:13:00 Delvis, [facility] MAGNESIUM 2021-06-20 10:12:00 Delvis, [facility] VITAMIN B12, LEVEL 2021-06-20 10:12:00 Magdaleno Hughes [facility] FOLATE 2021-06-20 10:12:00 Ted Magdaleno [facility] RENAL PANEL 2021-06-20 10:12:00 Delvis, [facility] VITAMIN D, 25-OH 2021-06-20 10:12:00 Magdaleno Hughes [facility] ELECTROLYTES PANEL 2021-06-20 03:25:00 [facility] ([id number])(NA, K, CL, CO2) [facility] POCT GLUCOSE (AUTOMATED) 2021-06-20 02:30:00 Magdaleno Hughes [facility] POCT GLUCOSE (AUTOMATED) 2021-06-20 01:12:00 Magdaleno Hughes [facility] POCT GLUCOSE (AUTOMATED) 2021-06-19 22:34:00 Magdaleno Hughes [facility] ELECTROLYTES PANEL 2021-06-19 21:21:00 [facility] ([id number]NA, K, CL, CO2) [facility] POCT GLUCOSE (AUTOMATED) 2021-06-19 16:58:00 Magdaleno Hughes [facility] POCT GLUCOSE (AUTOMATED) 2021-06-19 14:31:00 Magdaleno Hughes [facility] PHOSPHORUS 2021-06-19 14:17:00 [facility] CREATINE KINASE 2021-06-19 14:17[facility]00 [facility] 2021-06-19 14:17[facility]00 [facility] MAGNESIUM 2021-06-19 14:17:00 [facility] FERRITIN SERUM 2021-06-19 14:17:00 Ted [facility] OSMOLALITY, SERUM OR 2021-06-19 [facility] OSMOLALITY URINE 2021-06-19 14:17:00 [facility] TROPONIN I 2021-06-19 14:17:00 [facility] THYROID STIMULATING 2021-06-19 14:17:00 Magdaleno Hughes [facility] HORMONE [facility] Branch COMP. METABOLIC PANEL 2021-06-19 14:17[id number] Branch IRON PANEL 2021-06-19 14:17:00 Magdaleno Hughes [facility] Medical Branch DIFF CONSULT 2021-06-19 14:17:00 [facility] INTER[facility]TATION Medical Branch CBC WITH DIFF 2021-06-19 14:17:00 Delvis [facility] GLYCOSYLATED HEMOGLOBIN 2021-06-19 14:17:00 Ted [facility] (A1C) Medical Branch URINALYSIS MICROSCOPIC 2021-06-19 14:17:00 [facility] RETICULOC[facility]TES AUTOMATED 2021-06-19 14:17:00 Ted [facility] N-TERMINAL PRO-BNP 2021-06-19 14:17:00 [facility] Medical [place] POTASSIUM, URINE RANDOM 2021-06-19 14:17:00 Delvis [facility] SODIUM, URINE RANDOM 2021-06-19 14:17:00 Michelle [facility] PROTEIN CREAT RATIO URINE 2021-06-19 14:17:00 Michelle Edmondson [facility] RANDOM Medical Branch COVID-19 (ID NOW RAPID 2021-06-19 14:17:00 Delvis [facility] TESTING) Medical Branch LAB ONLY COVID 2021-06-19 14:17:00 Delvis [facility] INTERPRETATION [facility] PATIENT FINANCIAL 2021-06-19 13:01:56 Doctor Unassigned, [facility] POLICY [place] [facility] NO SHOW OR MISSED 2021-06-19 13:01:37 Doctor Jet, [facility] APPOINTMENT POLICY [place] [facility] h ACKNOWLEDGEMENT NOTICE OF PRIVACY 2021-06-19 13:01:16 Doctor Jet, [facility] PRACTICES [facility] [facility] CONSENT/REFUSAL FOR 2021-06-19 13:01:02 Doctor Jet, [facility] DIAGNOSIS AND TREATMENT [place] [facility] ASSIGNMENT OF BENEFITS 2021-06-19 13:00:44 Doctor Unassigned, [facility] [place] [facility] Encounters Start End Encounter Admission Attending Care Care Encounter Source Date/Time Date/Time Type Type Clinicians Facility Department ID 2021-07-15 [facility] [id number] Univers 04:45:31 MAGDALENO david of [facility] [place] [facility] 2021-07-08 2021-07-08 Outpatient [facility] [id number] Rand 00:00:00 00:00:00 881 Method i 2021-06-23 2021-06-23 Transition Siva Cantu [id number] Univers 00:00:00 00:00:00 of Care Pablo Davis [id number] ity of [id number] [id number] [facility] 403 Branch 2021-06-19 2021-06-21 [facility] [id number] Univers 08:50:00 11:15:00 Encounter Magdaleno Sexton [id number] ity [id number] [place] [id number] [facility] 080 Branch 2021-06-13 2021-06-13 Outpatient NAUTIYAL, [facility] [id number] Rand 00:00:00 00:00:00 PEREZ 814 Method i 2021-05-16 2021-05-16 Outpatient NAUTIYAL, [facility] [id number] Rand 00:00:00 00:00:00 PEREZ 336 Method i 2021-04-18 2021-04-18 Outpatient NAUTIYAL, [facility] [id number] Rand 00:00:00 00:00:00 PEREZ 545 Method i 2021-03-21 2021-03-21 Outpatient NAUTIYAL, [facility] [id number] Rand 00:00:00 00:00:00 PEREZ 979 Method i 2021-02-21 2021-02-21 Outpatient NAUTIYAL, [facility] [id number] Rand 00:00:00 00:00:00 PEREZ 833 Method i 2021-01-17 2021-01-17 Outpatient NAUTIYAL, [facility] [id number] Rand 00:00:00 00:00:00 KIRTAN [address] 2020-12-20 2020-12-20 Outpatient NAUTIYAL, [facility] [id number] Rand 00:00:00 00:00:00 KIRTAN [address] 2020-12-12 2020-12-12 Outpatient ROBBEN, [facility] [id number] Rand 00:00:00 00:00:00 RAÚLER [address] 2020-11-21 2020-11-21 Outpatient [facility] [id number] Rand 00:00:00 00:00:[address] 2020-11-15 2020-11-15 Outpatient NAUTIYAL, [facility] [id number] Rand 00:00:00 00:00:00 KIRTAN [address] 2020-10-11 2020-10-11 Outpatient NAUTIYAL, [facility] [id number] Rand 00:00:00 00:00:00 KIRTAN [address] 2020-09-12 2020-09-12 Outpatient NAUTIYAL, [facility] [id number] Rand 00:00:00 00:00:00 KIRTAN [address] 2020-08-16 2020-08-16 Outpatient NAUTIYAL, [facility] [id number] Rand 00:00:00 00:00:00 KIRTAN [address] 2020-08-06 2020-08-06 Outpatient NAUTIYAL, [facility] [id number] Rand 00:00:00 00:00:00 KIRTAN [address] 2020-07-19 2020-07-19 Outpatient NAUTIYAL, [facility] [id number] Rand 00:00:00 00:00:00 KIRTAN [address] 2020-06-21 2020-06-21 Outpatient NAUTIYAL, [facility] [id number] Rand 00:00:00 00:00:00 KIRTAN [address] 2020-05-24 2020-05-24 Outpatient NAUTIYAL, [facility] [id number] Rand 00:00:00 00:00:00 KIRTAN [address] 2020-04-26 2020-04-26 Outpatient NAUTIYAL, [facility] [id number] Rand 00:00:00 00:00:00 KIRTAN [address] 2020-03-22 2020-03-22 Outpatient MIRA [facility] [id number] Rand 00:00:00 00:00:00 KIRTAN [address] 2020-02-23 2020-02-23 Outpatient MIRA [facility] [id number] Rand 00:00:00 00:00:00 KIRTAN [address] 2020-02-02 2020-02-02 Outpatient MIRA, [facility] [id number] Rand 00:00:00 00:00:00 KIRTAN [address] 2020-01-26 2020-01-26 Outpatient MIRA, [facility] [id number] Rand 00:00:00 00:00:00 KIRTAN [address] 2019-12-29 2019-12-29 Outpatient MIRA [facility] [id number] Rand 00:00:00 00:00:00 KIRTAN [address] 2019-11-24 2019-11-24 Outpatient MIRA [facility] [id number] Rand 00:00:00 00:00:00 KIRTAN [address] Results Test Description Test Time Test Comments Results Result Comments Source POCT GLUCOSE (AUTOMATED) 2021-06-21 13:51:04 Test Item Value Reference Range Interpretation Comme nts POCT GLU (test code = 5730563538) 99 mg/dL 70-110 Lab Interpretation (test code = 95970-8) [facility] 12:40:16 Test Item Value Reference Range Interpretation Comments MAGNESIUM (test code = 3249444003) 2.3 mg/dL 1.7-2.4 Lab Interpretation (test code = Normal 22173-1) [facility] [id number] 12:40:15 Test Item Value Reference Range Interpretation Comments ALBUMIN (test code = 3.6 g/dL 3.5-5.0 6005346940) CALCIUM (test code = 8.9 mg/dL 8.6-10.6 6056741007) CO2 TOTAL (test code = 23 mmol/L 23-31 1363052509) CREATININE (test code = 1.36 mg/dL 0.60-1.25 H 1409139002) GLUCOSE (test code = 87 mg/dL 70-110 9108576687) K (test code = 4.2 mmol/L 3.5-5.0 5615628196) NA (test code = 135 mmol/L 135-145 2881672835) BUN (test code = 34 mg/dL 7-23 H 8525476986) PHOSPHORUS (test code = 3.9 mg/dL 2.5-5.0 0650797732) eGFR (test code = mL/min/1.73m2 5796216448) ALYSIA (test code = ALYSIA) Association of Glomerular Filtration Rate (GFR) and Staging of Kidney Disease* + --+ --+ ------+| GFR (mL/min/1.73 m2) ?| With Kidney Damage ?| ?Without Kidney Damage+ --------+ --------+ +| ?>90 ?| ?Stage one ?| ? Normal ?+ ---+ ---+ -------+| ?60-89 ?| ?Stage two ?| ? Decreased GFR ? + --+ --+ ------+| ?30-59 ?| ?Stage three ?| ? Stage three ? + --+ --+ ------+| ?15-29 ?| ?Stage four ? | ? Stage four ?+ ---+ ---+ -------+| ?<15 (or dialysis) ? ?| ?Stage five ? | ? Stage five ?+ ---+ ---+ -------+ *Each stage assumes the associated GFR level has been in effect for at least three months. ?Stages 1 to 5, with or without kidney disease, indicate chronic kidney disease. Notes: Determination of stages one and two (with eGFR >59mL/min/1.73 m2) requires estimation of kidney damage for at least three months as defined by structural or functional abnormalities of the kidney, manifested by either:Pathological abnormalities or Markers of kidney damage (including abnormalities in the composition of the blood or urine or abnormalities in imaging tests). Lab Interpretation Abnormal (test code = 11763-6) [facility] BranchELECTROLYTES PANEL ([id number])(NA, K, CL, CO2) 2021-06-21 12:39:35 Test Item Value Reference Range Interpretation Comments NA (test code = 8196686215) 135 mmol/L 135-145 K (test code = 0497097398) 4.2 mmol/L 3.5-5.0 CL (test code = 7445018655) 107 mmol/L 98-108 CO2 TOTAL (test code = 2283625142) 23 mmol/L 23-31 AGAP (test code = 9408751530) 2-16 Lab Interpretation (test code = Normal 56633-3) [place] [facility] ([id number])(NA, K, CL, CO2) 2021-06-21 02:05:41 Test Item Value Reference Range Interpretation Comments NA (test code = 4440702342) 130 mmol/L 135-145 L K (test code = 1631453822) 4.2 mmol/L 3.5-5.0 CL (test code = 5582734507) 99 mmol/L 98-108 CO2 TOTAL (test code = 3812720272) 23 mmol/L 23-31 AGAP (test code = 3928156794) 2-16 Lab Interpretation (test code = Abnormal 57385-4) [facility] GLUCOSE (AUTOMATED)2021-06-21 01:32:17 Test Item Value Reference Range Interpretation Comments POCT GLU (test code = 5393656719) 163 mg/dL 70-110 H Lab Interpretation (test code = Abnormal 78522-0) [facility] GLUCOSE (AUTOMATED)2021-06-21 01:32:11 Test Item Value Reference Range Interpretation Comments POCT GLU (test code = 6856410653) 111 mg/dL 70-110 H Lab Interpretation (test code = Abnormal 12655-3) [facility] [id number] 19:50:07 ABSOLUTE LYMPHOPENIA. NORMOCYTIC NORMOCHROMIC ANEMIA. PLATELETS ARE UNREMARKABLE.[facility]le[facility]IN B12, [id number] 19:49:05 Test Item Value Reference Range Interpretation Comments VIT B12 (test code = 687 pg/mL 240-930 0569896312) ALYSIA (test code = ALYSIA) Biotin has been reported to cause a positive bias, interpret results relative to patient's use of biotin. Lab Interpretation (test Normal code = 93375-6) [facility] D, [id number] 19:16:59 Test Item Value Reference Range Interpretation Comments VIT D 25OH (test code = 17 ng/mL 25-80 L 21944-8) ALYSIA (test code = ALYSIA) Deficiency: <20 ng/mLInsufficiency: 20-24 ng/mLOptimal: 25-80 ng/mL Lab Interpretation (test Abnormal code = 49196-0) [facility]leELECTROLYTES PANEL (69555)(NA, K, CL, CO2) 2021-06-20 18:30:32 Test Item Value Reference Range Interpretation Comments NA (test code = 8632160368) 127 mmol/L 135-145 L K (test code = 3650166154) 4.4 mmol/L 3.5-5.0 CL (test code = 8154810410) 97 mmol/L 98-108 L CO2 TOTAL (test code = 2675983555) 20 mmol/L 23-31 L AGAP (test code = 5840840952) 2-16 Lab Interpretation (test code = Abnormal 24022-3) [facility]le[facility] GLU[facility]SE (AUTOMATED)2021-06-20 18:02:33 Test Item Value Reference Range Interpretation Comments POCT GLU (test code = 0644525934) 118 mg/dL 70-110 H Lab Interpretation (test code = Abnormal 40902-0) [facility] GLUCOSE (AUTOMATED)2021-06-20 18:02:33 Test Item Value Reference Range Interpretation Comments POCT GLU (test code = 7013099179) 181 mg/dL 70-110 H Lab Interpretation (test code = Abnormal 84003-7) [facility]2021-10-08 16:36:31 Test Item Value Reference Range Interpretation Comments FOLATE SER (test code = >20.0 3.0-20.0 H Biot in has been 0118539786) reported to cau se a positive bias, interpret resul ts relative to patient's use o f biotin. Lab Interpretation (test Abnormal code = 89663-9) [facility]leRENAL [id number] 12:37:06 Test Item Value Reference Range Interpretation Comments ALBUMIN (test code = 3.8 g/dL 3.5-5.0 1526033834) CALCIUM (test code = 8.7 mg/dL 8.6-10.6 8283564076) CO2 TOTAL (test code = 20 mmol/L 23-31 L 5515440208) CREATININE (test code = 1.64 mg/dL 0.60-1.25 H 4428024911) GLUCOSE (test code = 82 mg/dL 70-110 9537565352) K (test code = 4.1 mmol/L 3.5-5.0 5510911845) NA (test code = 126 mmol/L 135-145 L 6039566867) BUN (test code = 43 mg/dL 7-23 H 4361169357) PHOSPHORUS (test code = 4.2 mg/dL 2.5-5.0 0025774705) eGFR (test code = mL/min/1.73m2 9069507981) ALYSIA (test code = ALYSIA) Association of Glomerular Filtration Rate (GFR) and Staging of Kidney Disease* + --+ --+ ------+| GFR (mL/min/1.73 m2) ?| With Kidney Damage ?| ?Without Kidney Damage+ --------+ --------+ +| ?>90 ?| ?Stage one ?| ? Normal ?+ ---+ ---+ -------+| ?60-89 ?| ?Stage two ?| ? Decreased GFR ? + --+ --+ ------+| ?30-59 ?| ?Stage three ?| ? Stage three ? + --+ --+ ------+| ?15-29 ?| ?Stage four ? | ? Stage four ?+ ---+ ---+ -------+| ?<15 (or dialysis) ? ?| ?Stage five ? | ? Stage five ?+ ---+ ---+ -------+ *Each stage assumes the associated GFR level has been in effect for at least three months. ?Stages 1 to 5, with or without kidney disease, indicate chronic kidney disease. Notes: Determination of stages one and two (with eGFR >59mL/min/1.73 m2) requires estimation of kidney damage for at least three months as defined by structural or functional abnormalities of the kidney, manifested by either:Pathological abnormalities or Markers of kidney damage (including abnormalities in the composition of the blood or urine or abnormalities in imaging tests). Lab Interpretation Abnormal (test code = 89318-7) [facility] Test Item Value Reference Range Interpretation Comments MAGNESIUM (test code = 1712182453) 2.3 mg/dL 1.7-2.4 Lab Interpretation (test code = Normal 58494-9) [facility] GLUCOSE (AUTOMATED)2021-06-20 12:01:50 Test Item Value Reference Range Interpretation Comments POCT GLU (test code = 8999456119) 114 mg/dL 70-110 H Lab Interpretation (test code = Abnormal 38362-7) [facility] GLUCOSE (AUTOMATED)2021-06-20 04:48:58 Test Item Value Reference Range Interpretation Comments POCT GLU (test code = 8858464332) 137 mg/dL 70-110 H Lab Interpretation (test code = Abnormal 03485-2) [facility]leELECTROLYTES PANEL (27307)(NA, K, CL, CO2) 2021-06-20 04:41:11 Test Item Value Reference Range Interpretation Comments NA (test code = 5657740342) 122 mmol/L 135-145 L K (test code = 8887159159) 4.0 mmol/L 3.5-5.0 CL (test code = 9402257416) 94 mmol/L 98-108 L CO2 TOTAL (test code = 0202959498) 20 mmol/L 23-31 L AGAP (test code = 9189531903) 2-16 Lab Interpretation (test code = Abnormal 19170-1) [facility] GLUCOSE (AUTOMATED)2021-06-20 02:04:20 Test Item Value Reference Range Interpretation Comments POCT GLU (test code = 4867584235) 166 mg/dL 70-110 H Lab Interpretation (test code = Abnormal 59147-8) [facility]leELECTROL[facility]TES PANEL (58915)(NA, K, CL, CO2) 2021-06-19 22:21:27 Test Item Value Reference Range Interpretation Comments NA (test code = 4447889134) 120 mmol/L 135-145 L K (test code = 4898243700) 4.3 mmol/L 3.5-5.0 CL (test code = 0940423095) 90 mmol/L 98-108 L CO2 TOTAL (test code = 8541540236) 22 mmol/L 23-31 L AGAP (test code = 7017859094) 2-16 Lab Interpretation (test code = Abnormal 92359-8) [facility]leOSMOLALITY, SERUM OR [id number] 20:32:51 Test Item Value Reference Range Interpretation Comments OSMOLALITY (test code = See_Comment L [Au tomated message] 4543838019) The system [employer] generated this result transmitted ref erence range: 278 - 30 5 mOsm/kg. The reference range was not used to int erpret this result as normal/abnormal . Lab Interpretation (test Abnormal code = 08599-9) [facility]leRETICULOCYTES [id number] 18:52:41 Test Item Value Reference Range Interpretation Comments RETIC Count Automated 4.16 % 0.59-2.24 H (test code = 1316651866) RETIC Absolute Count See_Comment H [Autom ated message] (test code = 6898392768) The system which generated this result transmitted ref erence range: 0.0260 - 0.1170 10*6/?L. The reference range was not used to int erpret this result as normal/abnormal . IRF % (test code = 24.00 % 2.00-19.10 H 7843898000) RETIC-HE (test code = 35.8 pg 27.3-36.4 6603664457) Lab Interpretation (test Abnormal code = 61918-1) [facility]leFERRITIN [id number] 18:12:11 Test Item Value Reference Range Interpretation Comments FERRITIN (test code = 245.0 ng/mL 18.0-464.0 4187464227) ALYSIA (test code = ALYSIA) Biotin has been reported to cause a negative bias, interpret results relative to patient's use of biotin. Lab Interpretation (test Normal code = 57956-0) [facility]leTHYROID STIMULATING [id number] 18:07:51 Test Item Value Reference Range Interpretation Comments TSH (test code = See_Comment [Automated message] 7733780998) The system [employer] generated this result transmitted ref erence range: 0.45 - 4 .70 mIU/L. The refe rence range was not u sed to interpret this result as normal/abnor mal. Lab Interpretation (test Normal code = 29383-6) [facility] AzleIRON [id number] 17:46:47 Test Item Value Reference Range Interpretation Comments IRON (test code = 3086145798) 38 ug/dL 50-160 L TIBC (test code = 1606035790) 320 ug/dL 250-410 % FE SAT (test code = 1480790316) 12 % 20-50 L Lab Interpretation (test code = Abnormal 32191-7) [facility]leCREATINE [id number] 17:37:28 Test Item Value Reference Range Interpretation Comments CK (test code = 5455165454) 204 U/L 33-194 H Lab Interpretation (test code = Abnormal 98145-9) [facility] AzleGlycosylated Hemoglobin (A1C)2021-06-19 15:28:01 Test Item Value Reference Range Interpretation Comments HGB A1C (test code = 5.5 % 4.0-5.7 4548-4) ALYSIA (test code = ALYSIA) Reference RangesNormal: <5.7%Prediabetes: 5.7 - 6.4%Diabetes: > 6.5% Lab Interpretation (test Normal code = 01197-9) [facility]leTROPONIN [id number] 15:23:11 Test Item Value Reference Interpretation Comments Range TROPONIN I (test 0.006 ng/mL See_Comment [Automated code = 8237827223) message] The system which generated this result transmitted reference range : <=0.034. The reference range was not used to interpret this result as normal/abnormal . ALYSIA (test code = Reference (Normal) ALYSIA) Range (defined by the 99th percentile reference limit): <= 0.034 ng/mL Note: Cardiac troponin begins to rise 3-4 hours after the onset of ischemia. Repeat in 4-6 hours if the sample was drawn within 3-4 hours of the onset of the symptom and found normal. Diagnosis of myocardial injury is made with acute changes in cTn concentrations with at least one serial sample above the 99th percentile upper reference limit (URL), taken together with the patient's clinical presentation. Biotin has been reported to cause a negative bias, interpret results relative to patient's use of biotin. Lab Interpretation Normal (test code = 86710-0) [facility]leN-TERMINAL [id number] 15:19:46 Test Item Value Reference Range Interpretation Comments NT-proBNP (test code 610 pg/mL See_Comment H [Autom ated = 1977532919) message] The system which generated this result transmitted reference range : <=125. The reference range was not used to interpret this result as normal/abnormal . ALYSIA (test code = ALYSIA) Biotin has been reported to cause a negative bias, interpret results relative to patient's use of biotin. Lab Interpretation Abnormal (test code = 12245-4) [facility]leMAGNESIUM2021-10-07 15:12:30 Test Item Value Reference Range Interpretation Comments MAGNESIUM (test code = 6324474454) 2.2 mg/dL 1.7-2.4 Lab Interpretation (test code = Normal 95561-9) [facility] AzleCOM. METABOLIC PANEL (39715)2021-06-19 15:12:25 Test Item Value Reference Range Interpretation Comments NA (test code = 120 mmol/L 135-145 L 0143864066) K (test code = 4.3 mmol/L 3.5-5.0 8761877680) CL (test code = 87 mmol/L 98-108 L 5514564463) CO2 TOTAL (test code = 22 mmol/L 23-31 L 0240436187) AGAP (test code = 2-16 8021170371) BUN (test code = 47 mg/dL 7-23 H 5869183807) GLUCOSE (test code = 110 mg/dL 70-110 8092575825) CREATININE (test code = 1.74 mg/dL 0.60-1.25 H 8069383791) TOTAL BILI (test code = 0.6 mg/dL 0.1-1.7 3522893837) CALCIUM (test code = 9.3 mg/dL 8.6-10.6 2371847491) T PROTEIN (test code = 7.2 g/dL 6.3-8.2 4497085989) ALBUMIN (test code = 4.6 g/dL 3.5-5.0 4492055404) ALK PHOS (test code = 99 U/L 34-122 9870756154) ALTv (test code = 48 U/L 5-50 1742-6) AST(SGOT) (test code = 39 U/L 13-40 3583857374) eGFR (test code = mL/min/1.73m2 5426749825) ALYSIA (test code = ALYSIA) Association of Glomerular Filtration Rate (GFR) and Staging of Kidney Disease* + --+ --+ ------+| GFR (mL/min/1.73 m2) ?| With Kidney Damage ?| ?Without Kidney Damage+ --------+ --------+ +| ?>90 ?| ?Stage one ?| ? Normal ?+ ---+ ---+ -------+| ?60-89 ?| ?Stage two ?| ? Decreased GFR ? + --+ --+ ------+| ?30-59 ?| ?Stage three ?| ? Stage three ? + --+ --+ ------+| ?15-29 ?| ?Stage four ? | ? Stage four ?+ ---+ ---+ -------+| ?<15 (or dialysis) ? ?| ?Stage five ? | ? Stage five ?+ ---+ ---+ -------+ *Each stage assumes the associated GFR level has been in effect for at least three months. ?Stages 1 to 5, with or without kidney disease, indicate chronic kidney disease. Notes: Determination of stages one and two (with eGFR >59mL/min/1.73 m2) requires estimation of kidney damage for at least three months as defined by structural or functional abnormalities of the kidney, manifested by either:Pathological abnormalities or Markers of kidney damage (including abnormalities in the composition of the blood or urine or abnormalities in imaging tests). Lab Interpretation Abnormal (test code = 67158-8) [facility]lePHOSPHORUS2021-10-07 15:12:04 Test Item Value Reference Range Interpretation Comments PHOSPHORUS (test code = 5252009299) 4.4 mg/dL 2.5-5.0 Lab Interpretation (test code = Normal 66793-6) [facility]leURIC [id number] 15:12:04 Test Item Value Reference Range Interpretation Comments URIC ACID (test code = 0332360667) 9.8 mg/dL 3.6-8.0 H Lab Interpretation (test code = Abnormal 75911-5) [facility] AzleCBC WITH [id number] 14:38:02 Test Item Value Reference Range Interpretation Comments WBC (test code = See_Comment [Automated 6690-2) message] The sy stem which generated this result transmitted reference range : 4.20 - 10.70 10*3/?L. The reference range was not used to interpret this result as normal/abnormal . RBC (test code = See_Comment L [Automated 789-8) message] The sy stem which generated this result transmitted reference range : 4.26 - 5.52 10*6/?L. The reference range was not used to interpret this result as normal/abnormal . HGB (test code = 9.1 g/dL 12.2-16.4 L 718-7) HCT (test code = 25.6 % 38.4-49.3 L 4544-3) MCV (test code = 87.4 fL 81.7-95.6 787-2) MCH (test code = 31.1 pg 26.1-32.7 785-6) MCHC (test code = 35.5 g/dL 31.2-35.0 H 786-4) RDW-SD (test code = 38.5 fL 38.5-51.6 59489-0) RDW-CV (test code = 12.1 % 12.1-15.4 788-0) PLT (test code = See_Comment [Automated 777-3) message] The sy stem which generated this result transmitted reference range : 150 - 328 10*3/ ?L. The reference r kathe was not used to interpret this result as normal/abnormal . MPV (test code = 10.0 fL 9.8-13.0 72589-3) NRBC/100 WBC (test See_Comment [Automat ed code = 8977828931) message] The system which generated this result transmitted reference range : 0.0 - 10.0 /100 WBCs. The refer ence range was not u sed to interpret th is result as normal/abnormal . NRBC x10^3 (test code <0.01 See_Comment [Auto mated = 2895011348) message] The s ystem which generated this result transmitted reference range : 10*3/?L. The reference range was not used to interpret this result as normal/abnormal . GRAN MAT (NEUT) % 71.7 % (test code = 770-8) IMM GRAN % (test code 0.60 % = 6653218168) LYMPH % (test code = 12.4 % 736-9) MONO % (test code = 12.1 % 5905-5) EOS % (test code = 2.7 % 713-8) BASO % (test code = 0.5 % 706-2) GRAN MAT x10^3(ANC) 4.44 10*3/uL 1.99-6.95 (test code = 9265916280) IMM GRAN x10^3 (test 0.04 10*3/uL 0.00-0.06 code = 2957348142) LYMPH x10^3 (test code 0.77 10*3/uL 1.09-3.23 L = 731-0) MONO x10^3 (test code 0.75 10*3/uL 0.36-1.02 = 742-7) EOS x10^3 (test code = 0.17 10*3/uL 0.06-0.53 711-2) BASO x10^3 (test code 0.03 10*3/uL 0.01-0.09 = 704-7) Lab Interpretation Abnormal (test code = 21817-2) [facility] AzleTISSUE [id number] 11:32:00Surgical Pathology Report Case: [id number] Authorizing Provider: Abran Berrios MD Collected: 02/03/2017 0845 Ordering Location: [facility] Diagnostic Imaging Received: 02/03/2017 0915 Pathologist: Logan Pedroza MD Specimen: Renal, Left KIDNEY, NEEDLECORE BIOPSIES:- 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 Other laboratory findings are not available. The renal biopsy shows features of diabetic glomerulosclerosis, class III (see reference). No immune mediated glom erulonephritis is seen based on negative immunofluorescence and absence of electron dense deposits on ultrastructural evaluation. Clinical correlation is recommended.Reference: Shreyas Busby. et al. Pathologic classification of diabetic nephropathy. J Am Soc Nephrol 21:556-563, 2009.75497, 06306 x3, 32397, 09785 x7, 52977Nbqcqksezpt, DM and serum creatinine 1.3 to 1.4Left kidneyThe specimen is received in saline and consists of two white-irvin tissue cores each measuring 1.5 cm in length and 0.1 cm indiameter. One of the tissue cores is bisected and submitted into glutaraldehyde and PBS solution respectively. The other tissue core is submitted into formalin. JAZMYN Daly, BIOPSY FOR INTRAOPERATIVE GROSS ASSESSMENT: - ADEQUATE GLOMERULI IDENTIFIED WITHIN TWO TISSUE CORESLIGHT MICROSCOPY: Sections show single core of cortical tissue. Glomeruli: Approximately 18 glomeruli are examined of which 2 glomeruli are globally sclerotic/obsolescent. The remaining non-globally sclerotic glomeruli are enlarged and have nodular mesangial expansion by PAS- and silver-positive matrix with normal to mild segmental hypercellularity. Focal Kimmelstiel Wild nodules are seen. No endocapillary hypercellularity, crescents or thrombi are seen.Tubules and interstitium: There is mild to moderate interstitial fibrosis with focal tubular atrophy and mild chronic interstitial inflammatory cell infiltration by lymphocytes involving about 20%-30% of renal cortex. Non- atrophic proximal tubules are focally ectatic with loss of brush borders. Vessels: Interlobular arteries show mild intimal sclerosis and thickening. There is diffuse arteriolosclerosis. Special stains: Becca trichrome, PAS and Ontiveros silver stains were necessary for evaluation of this biopsy and showed expected staining patterns of internal control tissue matrix structures.Direct Immunofluorescence:Histology: H&E-stained sections show 3 non-obsolescent glomeruli and 2 obsolescent glomeruli. Immunofluorescence findings: Albumin: diffuse, glomerular and tubular basement membrane, weak.IgA: negative in glomeruliIgG: no significant glomerular, tubulointerstitial or vascular staining. IgM: focal, segmental, amorphous/entrapment, 1+. C3: focal mesangial staining of sclerosed glomerulus, focal arteriolar staining. C1q: no significant glomerular, tubulointerstitial or vascular staining. Fibrinogen: diffuse, glomerular and tubulointerstitial,weak.[place]: negative glomeruli; rare small tubular casts are positiveLambda: negative glomeruli; rare small tubular casts are positiveAll polyclonal antibodies used for immunofluorescence staining have been previously tested and shown to have appropriate reactivities with positive control specimens. Diagnostic Electron Microscopy:Thick section histology: Toluidine blue-stained sections reveal three non-obsolescent glomeruli, one of which shows ischemic changes and one globally sclerosed glomerulus.All the three open glomeruli are examined ultrastructurally.Ultrastructure: Examination of the glomerular ultrastructure reveals that the glomerular basement membrane is diffusely thickened generally measuring up to approximately 889 nm (normal adult male average = 230 - 430 nm; Tashia Hernandez, Arch PatholLab Med 133:224-232). The mesangial matrix is markedly expanded. Focal mesangial hypercellularity is present. Subendothelial, subepithelial, and mesangial/paramesangial electron- dense, immune complex-type deposits are not present. Focal hyaline deposition is noted. Podocyte foot processes are segmentally effaced. Tubular basement membranes are thickened.POCT-GLUCOSE [id number] 09:15:00 Test Item Value Reference Range Interpretation Comments POC-GLUCOSE METER 140 mg/dL 70-110 H TESTED AT [address] ([facility]) (test code [facility] [place] = 1538) [address] PT/[id number] 07:43:00 Test Item Value Reference Range Interpretation Comments PROTIME ([facility]) (test code = 10.2 seconds 9.3-12.0 759) INR ([facility]) (test code = 370) 1.0 <=5.9 PARTIAL THROMBOPLASTIN TIME 25.9 seconds 23.0-35.0 (AKER) (test code = 760) RECOMMENDED COUMADIN/WARFARIN INR THERAPY RANGESSTANDARD DOSE: 2.0 - 3.0 Includes: PROPHYLAXIS forvenous thrombosis, systemic embolization; TREATMENT for venous thrombosis and/or pulmonary embolus.HIGH RISK: Target INR is 2.5-3.5 for patients with mechanical heart valves.CBC W/PLT COUNT & AUTO DIFFERENTIAL 2017-02-03 07:39:00 Test Item Value Reference Range Interpretation Comments WHITE BLOOD CELL COUNT (AKER) 6.2 K/ L 4.0-10.0 (test code = 775) RED BLOOD CELL COUNT (AKER) 3.55 M/ L 4.20-5.80 L (test code = 761) HEMOGLOBIN (BEAKER) (test code = 11.2 GM/DL 13.0-16.8 L 410) HEMATOCRIT (BEAKER) (test code = 33.8 % 40.0-50.0 L 411) MEAN CORPUSCULAR VOLUME (BEAKER) 95.2 fL 82.0-98.0 (test code = 753) MEAN CORPUSCULAR HEMOGLOBIN 31.6 pg 27.0-33.0 (BEAKER) (test code = 751) MEAN CORPUSCULAR HEMOGLOBIN CONC 33.2 GM/DL 32.0-36.0 (BEAKER) (test code = 752) RED CELL DISTRIBUTION WIDTH 12.6 % 10.3-14.2 (BEAKER) (test code = 412) PLATELET COUNT (BEAKER) (test 293 K/CU MM 150-430 code = 756) MEAN PLATELET VOLUME (BEAKER) 8.1 fL 6.5-10.5 (test code = 754) NUCLEATED RED BLOOD CELLS 0 /100 WBC 0-0 (BEAKER) (test code = 413) NEUTROPHILS RELATIVE PERCENT 51 % (BEAKER) (test code = 429) LYMPHOCYTES RELATIVE PERCENT 31 % (BEAKER) (test code = 430) MONOCYTES RELATIVE PERCENT 8 % (BEAKER) (test code = 431) EOSINOPHILS RELATIVE PERCENT 10 % (BEAKER) (test code = 432) BASOPHILS RELATIVE PERCENT 1 % (BEAKER) (test code = 437) NEUTROPHILS ABSOLUTE COUNT 3.10 K/ L 1.80-8.00 (BEAKER) (test code = 670) LYMPHOCYTES ABSOLUTE COUNT 1.90 K/ L 1.48-4.50 (BEAKER) (test code = 414) MONOCYTES ABSOLUTE COUNT (BEAKER) 0.50 K/ L 0.00-1.30 (test code = 415) EOSINOPHILS ABSOLUTE COUNT 0.60 K/ L 0.00-0.50 H (BEAKER) (test code = 416) BASOPHILS ABSOLUTE COUNT (BEAKER) 0.00 K/ L 0.00-0.20 (test code = 417) POCT-GLUCOSE [id number] 07:26:00 Test Item Value Reference Range Interpretation Comments POC-GLUCOSE METER 136 mg/dL 70-110 H TESTED AT [facility] (test code [address] [facility] [place] = 1538) [address]"
== END 2021-07-18 19:30 | disposition home or self-care (01) | DRG 246 ==
LOC: ER 14:52 → ERHOLD 18:14 → 2ND 20:42
PROVIDERS: ADMIT Internal Medicine; ATTEND Internal Medicine
PROC: 30233N1 Transfusion of Nonautologous Red Blood Cells into Peripheral Vein, Percutaneous Approach (ICD-10-PCS; 2021-07-16)
PROC: B201YZZ Plain Radiography of Multiple Coronary Arteries using Other Contrast (ICD-10-PCS; principal; 2021-07-17)
PROC: 027135Z Dilation of Coronary Artery, Two Arteries with Two Drug-eluting Intraluminal Devices, Percutaneous Approach (ICD-10-PCS; 2021-07-18)
PROC: B241ZZ3 Ultrasonography of Multiple Coronary Arteries, Intravascular (ICD-10-PCS; 2021-07-18)
DX: I21.4 Non-ST elevation (NSTEMI) myocardial infarction (principal); I50.31 Acute diastolic (congestive) heart failure; I13.0 Hypertensive heart and chronic kidney disease with heart failure and stage 1 through stage 4 chronic kidney disease, or unspecified chronic kidney disease; E87.2 Acidosis; E87.1 Hypo-osmolality and hyponatremia; N17.9 Acute kidney failure, unspecified; N25.81 Secondary hyperparathyroidism of renal origin; N18.30 Chronic kidney disease, stage 3 unspecified; E11.22 Type 2 diabetes mellitus with diabetic chronic kidney disease; I25.10 Atherosclerotic heart disease of native coronary artery without angina pectoris; D64.9 Anemia, unspecified; Z20.822 Contact with and (suspected) exposure to COVID-19
CPT/HCPCS: 36415; 36430; 71045; 80048; 80069; 80076; 82533; 82570; 82607; 82652; 82728; 82746; 82947; 83540; 83735; 83880; 83930; 83935; 83970; 84132; 84156; 84165; 84300; 84443; 84466; 84484; 84550; 85025; 85044; 85347; 85610; 86850; 86900; 86901; 92928; 92978; 93005; 93306; 93458; 94660; 94760; 96374; 99285; C1725; C1893; J0583; J1644; J1940; J2250; J2916; J3010; J7030; J7040; J7050; P9016; U0003

== ENCOUNTER 2021-08-13 16:59 | Emergency (ER) | payer BC ==
--- OUTSIDE RECORDS SUMMARY | 2021-08-13 17:03 | XMS REPORT | Continuity of Care Document ---
:1960 Author Organization [facility] t Address [address] [place] [address] Dr. Tsai [address] [place] [address] Care Team Providers Name Role Phone Lester Hill Primary Care Physician TED Attending Clinician Unavailable Alondra HART, A Attending Clinician Unavailable Ted COATS Attending Clinician MIRA Attending Clinician Unavailable SHIVANI Attending Clinician Unavailable YANG Attending Clinician Unavailable TED Admitting Clinician Unavailable Ted COATS Admitting Clinician AYNG Admitting Clinician Unavailable Payers Payer Name Policy Type Policy Number Effective Date [id number] 00:00:00 OUT OF STATE Problems Condition Condition Condition Status Onset Resolution Last Treating Co mments Source Name Details Category Date Date Treatment Clinician Date Hyponatrem Hyponatrem Disease Active 2020-09 U nivers ia ia 0-07 ity of syndrome syndrome 00:00: [address] Allergies, Adverse Reactions, Alerts Allergy Allergy Status Severity Reaction(s) Onset Inactive Treating Comm ents Source Name Type Date Date Clinician NO KNOWN Drug Active Univers ALLERGIE Class ity of S [facility] Social History Social Habit Start Date Stop Date Quantity Comments Source Exposure to Not sure [facility] SARS-CoV-2 [facility] (event) Branch Tobacco use and 2021-06-19 2021-06-19 Never used Universit y of exposure 00:00:00 00:00:00 [facility] Alcohol intake 2021-06-19 2021-06-19 Ex-drinker [facility] 00:00:00 00:00:00 (finding) [place] [facility] Sex Ass[birth year] At [birth year] Universit y of 00:00:00 00:00:00 [facility] Smoking Status Start Date Stop Date Source Never smoker [facility] Medical Branch Medications Ordered Filled Start Stop Current Ordering Indication Dosage Frequency Signature Comments Components Source Medication Medication Date Date Medication? Clinician (SIG) Name Name amLODIPine 2020-09 Yes [id number] 5mg Take 1 U nivers 5 mg tablet 0-10 tablet by ity of 00:00: mouth [place] 00 daily. Medical Branch cholecalcif 2020-09 Yes [id number] 1999U Take 2 Univers savanah, 0-10 tablets by ity of vitamin D3, 00:00: mouth [place] 25 mcg 00 daily. Medical (1,000 Branch unit) tablet lisinopriL 2020-09 Yes [id number] 5mg Take 1 U nivers 5 mg tablet 0-10 tablet by ity of 00:00: mouth [place] 00 daily. Medical Branch amLODIPine 2020-09 Yes [id number] 5mg Take 1 U nivers 5 mg tablet 0-10 tablet by ity of 00:00: mouth [place] 00 daily. Medical Branch cholecalcif 2020-09 Yes [id number] 1999U Take 2 Univers savanah, 0-10 tablets by ity of vitamin D3, 00:00: mouth [place] 25 mcg 00 daily. Medical (1,000 Branch unit) tablet lisinopriL 2020-09 Yes [id number] 5mg Take 1 U nivers 5 mg tablet 0-10 tablet by ity of 00:00: mouth [place] 00 daily. Medical Branch febuxostat 2020-09 Yes [id number] 40mg 40 mg, U nivers (ULORIC) 0-09 Oral, ity of tablet 40 14:00: DAILY, [place] mg 00 First dose Medical on [facility] 06/21/21 at 0900, Until Discontinu ed, Routine lisinopriL 2020-09 Yes [id number] 5mg 5 mg, Un chani (PRINIVIL,Z 0-09 Oral, ity of ESTRIL) 14:00: DAILY, [place] tablet 5 mg 00 First dose Me dical on [facility] 06/21/21 at 0900, Until Discontinu ed, Routine ferrous 2020-09 Yes 325mg Take 325 Unive rs sulfate 325 0-09 mg by ity of mg (65 mg 11:52: mouth [place] iron) 04 daily. Medical tablet Branch aspirin 81 2020-09 Yes 81mg Take 81 mg U nivers mg chewable 0-09 by mouth ity of tablet 11:52: daily. [address] Branch levocetiriz 2020-09 Yes 5mg Take 5 mg U nivers ine 5 mg 0-09 by mouth ity of tablet 11:52: daily. [address] rosuvastati 2020-09 Yes 40mg Take 40 mg [...] (two) Medical times Branch daily. Both eyes ferrous 2020-09 Yes 325mg Take 325 Unive rs sulfate 325 0-09 mg by ity of mg (65 mg 11:52: mouth [place] iron) 04 daily. Medical tablet Branch aspirin 81 2020-09 Yes 81mg Take 81 mg U nivers mg chewable 0-09 by mouth ity of tablet 11:52: daily. [address] Branch levocetiriz 2020-09 Yes 5mg Take 5 mg U nivers ine 5 mg 0-09 by mouth ity of tablet 11:52: daily. [address] rosuvastati 2020-09 Yes 40mg Take 40 mg [...] 40mg Take 40 mg Univers 40 mg 006-21 by mouth 2 ity of tablet 09:27: 00:00 (two) [place] 02 :00 times Medical daily. Branch hydrALAZINE 2020-09 50mg Take 50 mg Univers 50 mg 0-05 23-09 by mouth 3 ity of tablet 09:27: 00:00 (three) [place] 02 :00 times Medical daily. Branch furosemide 2020-09 20mg Take 20 mg Univers 20 mg 006-21 by mouth ity of tablet 09:27: 00:00 every [place] 02 :00 morning Medical and Branch evening. 0800 am and 1400 febuxostat 2020-09 Yes [id number] 40mg Take 1 U nivers 40 mg 0-09 tablet by ity of tablet 00:00: mouth [place] 00 daily. Medical Branch febuxostat 2020-09 Yes [id number] 40mg Take 1 U nivers 40 mg 0-09 tablet by ity of tablet 00:00: mouth [place] 00 daily. Medical Branch NaCl 0.9% 2020-09 Yes [id number] IV Unive rs (NS) IV 0-08 Infusion, ity of infusion 19:15: at 100 [place] 00 mL/hr, Medical CONTINUOUS Branch , Starting on Wed06/20/21 at 1415, Until Discontinu ed, STAT amLODIPine 2020-09 Yes [id number] 5mg 5 mg, Un chani (NORVASC) 0-08 [...] Discontinu ed, Routine NaCl 0.9% 2020-09- No [id number] IV Univ ers (NS) IV 0-08 10-08 Infusion, ity of infusion 13:30: 19:02 at 75 [place] 00 :45 mL/hr, Medical CONTINUOUS Branch , Starting on Wed06/20/21 at 0830, Until Wed06/20/21 at 1402, STAT heparin 2020-09 Yes 5000U 5,000 Univers (porcine) 0-08 Units, ity of injection 11:00: [place]cut[place]o [place] 5,000 Units 00 us, Q8H, Medi dharmesh First dose Branch on Wed06/20/21 at 0600, Until Discontinu ed, Routine rosuvastati 2020-09 Yes [id number] 40mg 40 mg, Univers n (CRESTOR) 0-08 Oral, QHS, it y of tablet 40 02:00: [place] dose [place] [facility] on [facility] 06/19/21 at Branch 2100, Until Discontinu ed, Routine ferrous 2020-09 Yes [id number] 325mg 325 mg, Un chani sulfate 0-08 Oral, BID, ity of tablet 325 01:00: First dose [place] mg 00 on [facility] 06/19/21 at Branch 2000, Until Discontinu ed, Routine hydrALAZINE 2020-09- No [id number] 50mg 50 mg, Univers (APRESOLINE 0-08 10-08 Oral, BID, i ty of ) tablet 50 01:00: 02:31 1 dose, [place] mg 00 :00 First dose Medical (after Branch last modificati on) on [facility] 06/19/21 at 2000, Routine NaCl 0.9% 2020-09- No [id number] IV Univ ers (NS) IV 0-07 10-08 [...] 00 First dose Medical (HumaLOG) + on [facility] Branch Fsbg 06/19/21 at Testing 1200, Until Discontinu ed, Routine glucagon 2020-09 Yes 1mg 1 mg, Univers (GLUCAGEN 0-07 Intramuscu ity of DIAGNOSTIC 15:05: lar, PRN, [place] KIT) 01 Starting Medical injection 1 on [facility] Branch mg 06/19/21 at 1005, Until Discontinu ed, LOBO, Blood Glucose < or = 70 mg/dL and patient is unable to swallow or has mental changes. dextrose 50 2020-09 Yes 25mL 25 mL, Univ ers % in water 0-07 Slow IV ity of (D50W) 15:05: Push, PRN, [place] injection 01 Starting Medica l 25 mL on [facility] Branch 06/19/21 at 1005, Until Discontinu ed, LOBO, Blood Glucose < or = 70 mg/dL and patient is unable to swallow or has mental status changes. cholecalcif 2020-09 Yes [id number] 2000U 2,000 Univers savanah 0-07 Units, ity of (vitamin 14:45: Oral, [place] D3) tablet 00 DAILY, Medical 2,000 Units First dose Br anch on [place] 06/19/21 at 0945, Until Discontinu ed, Routine acetaminoph 2020-09 Yes 650mg 650 mg, Un chani en 0-07 Oral, ity of (TYLENOL) 14:18: Q6HPRN, [place] tablet 650 47 Starting Medic al mg on [facility] Branch 06/19/21 at 0918, Until Discontinu ed, Routine, Pain (scale 1-3) glimepiride 2020-09- No 4mg Take 4 mg Univers 4 mg tablet 006-19 by mouth ity of 12:08: 00:00 daily with [place] 53 :00 breakfast. [facility] Branch bisoproloL- 2020-09- No 1{tbl} Take 1 U nivers hydrochloro 0-07 10-07 tablet by it y of thiazide 12:08: 00:00 mouth 2 [place] 10-6.25 mg 53 :00 (two) Medical per tablet times Branch daily. Immunizations Ordered Filled Immunization Date Status Comments Sour e Immunization Name Name Pneumococcal 2021-06-21 Completed Gray o f Polysaccharide, 00:00:00 [place] Med ical PPSV23 (PNEUMOVAX) Branch Pneumococcal 2021-06-21 Completed Gray o f Polysaccharide, 00:00:00 [place] Med ical PPSV23 (PNEUMOVAX) Branch Influenza Virus 2020-07-14 Completed Universit y of Vaccine Quad IM 00:00:00 [place] Med ical Multi-dose 6+ MO Branch Influenza Virus 2020-07-14 [facility] [place] Med ical Multi-dose 6+ MO [place] Vital Signs Vital Name Observation Time Observation Value Comments Source Heart rate 2021-06-21 14:00:00 88 /min [facility] Respiratory rate 2021-06-21 14:00:00 13 /min [facility] Oxygen saturation in 2021-06-21 14:00:00 98 /min [facility] Arterial blood by [facility] Pulse oximetry Branch Systolic blood 2021-06-21 13:02:00 151 mm[Hg] [facility] sity of pressure [facility] Diastolic blood 2021-06-21 13:02:00 75 mm[Hg] [facility] Body temperature 2021-06-21 13:02:00 36.22 Yadira [facility] [place] [facility] Body weight 2021-06-20 09:51:00 82.464 kg [facility] BMI 2021-06-20 09:51:00 27.64 kg/m2 [facility] Body height 2021-06-19 20:00:00 172.7 cm [facility] Procedures Procedure Date / Time Performing Clinician Source Performed POCT GLUCOSE (AUTOMATED) 2021-06-21 13:21:00 Magdaleno Hughes [facility] [place] [facility] MAGNESIUM 2021-06-21 10:35:00 [place], [facility] OSMOLALITY URINE 2021-06-21 10:35:00 [place], [facility] RENAL PANEL 2021-06-21 10:35:00 [place], [facility] ELECTROLYTES PANEL 2021-06-21 10:35[id number]NA, K, CL, CO2[facility] Medical Branch POTASSIUM, URINE RANDOM 2021-06-21 10:35:00 [place], [facility] SODIUM, URINE RANDOM 2021-06-21 10:35:00 Delvis [facility] ELECTROLYTES PANEL 2021-06-21 01:20:00 [facility] ([id number]NA, K, CL, CO2) [facility] POCT GLUCOSE (AUTOMATED) 2021-06-21 01:14:00 Magdaleno Hughes [facility] POCT GLUCOSE (AUTOMATED) 2021-06-20 22:05:00 Magdaleno Hughes [facility] ELECTROLYTES PANEL 2021-06-20 17:24:00 [facility] ([id number]NA, K, CL, CO2) Medical Branch OSMOLALITY URINE 2021-06-20 10:13:00 [place], [facility] POTASSIUM, URINE RANDOM 2021-06-20 10:13:00 [place], [facility] SODIUM, URINE RANDOM 2021-06-20 10:13:00 [place], [facility] MAGNESIUM 2021-06-20 10:12:00 [place] VITAMIN B12, LEVEL 2021-06-20 10:12:00 Magdaleno Hughes [facility] FOLATE 2021-06-20 10:12:[address] [facility] RENAL PANEL 2021-06-20 10:12:00 [place] VITAMIN D, 25-OH 2021-06-20 10:12:00 Ted [facility] ELECTROLYTES PANEL 2021-06-20 03:25:00 [facility] ([id number]NA, K, CL, CO2) Medical [place] POCT GLUCOSE (AUTOMATED) 2021-06-20 02:30:[address] [facility] POCT GLUCOSE (AUTOMATED) 2021-06-20 01:12:[address] [facility] POCT GLUCOSE (AUTOMATED) 2021-06-19 22:34:00 Magdaleno Hughes [facility] ELECTROLYTES PANEL 2021-06-19 21:21:00 [facility] ([id number]NA, K, CL, CO2) [facility] POCT GLUCOSE (AUTOMATED) 2021-06-19 16:58:[address] [facility] POCT GLUCOSE (AUTOMATED) 2021-06-19 14:31:00 Magdaleno Hughes [facility] PHOSPHORUS 2021-06-19 14:17:00 [facility] CREATINE KINASE 2021-06-19 14:17:00 Ted [facility] URIC ACID 2021-06-19 14:17:00 [facility] MAGNESIUM 2021-06-19 14:17[facility]UM 2021-06-19 14:17:[address] [facility] OSMOLALITY, SERUM OR 2021-06-19 14:17:00 [place]vis [facility] PLASMA [facility] OSMOLALITY URINE 2021-06-19 14:17[facility]OP[facility] I 2021-06-19 14:17:00 [facility] THYROID STIMULATING 2021-06-19 14:17:00 Magdaleno Hughes [facility] HORMONE [facility] COMP. METABOLIC PANEL 2021-06-19 14:17:00 [facility] ([id number] Medical [place] IRON PANEL 2021-06-19 14:17:00 Magdaleno Hughes [facility] Medical Branch DIFF CONSULT 2021-06-19 14:17:00 [facility] Medical Branch CBC WITH DIFF 2021-06-19 14:17:00 [facility] [place] GLYCOSYLATED HEMOGLOBIN 2021-06-19 14:17:00 [facility] Branch URINALYSIS MICROSCOPIC 2021-06-19 14:17:00 [facility] RETICULOCYTES AUTOMATED 2021-06-19 14:17:00 Magdaleno Hughes [facility] N-TERMINAL PRO-BNP 2021-06-19 14:17:00 Michelle Edmondson [facility] Medical [place] POTASSIUM, URINE RANDOM 2021-06-19 14:17:00 [facility] SODIUM, URINE RANDOM 2021-06-19 14:17:00 Michelle Edmondson [facility] Medical [place] PROTEIN CREAT RATIO URINE 2021-06-19 14:17:00 Michelle Edmondson [facility] RANDOM Medical Branch COVID-19 (ID NOW RAPID 2021-06-19 14:17:00 [place] [facility] TESTING) Medical Branch LAB ONLY COVID 2021-06-19 14:17:00 [facility] INTERPRETATION Medical [facility] PATIENT FINANCIAL 2021-06-19 13:01:56 Doctor Unassigned, [facility] POLICY [place] Medical Branch NO SHOW OR MISSED 2021-06-19 13:01:37 Doctor Jet, [facility] APPOINTMENT POLICY [place] Medical [facility] h ACKNOWLEDGEMENT NOTICE OF PRIVACY 2021-06-19 13:01:16 Doctor Jet, [facility] PRACTICES [place] [facility] CONSENT/REFUSAL FOR 2021-06-19 13:01:02 Doctor Jet, [facility] DIAGNOSIS AND TREATMENT [place] [facility] ASSIGNMENT OF BENEFITS 2021-06-19 13:00:44 Doctor Unassigned, [facility] [place] [facility] Encounters Start End Encounter Admission Attending Care Care Encounter Source Date/Time Date/Time Type Type Clinicians Facility Department ID 2021-07-15 Inpatient TED [facility] [id number] Univers 04:45:31 MAGDALENO ity of [facility] 2021-07-08 2021-07-08 Outpatient [facility] [id number] [place] 00:00:00 00:00:00 881 Method i 2021-06-23 2021-06-23 Transition Svia Cantu [id number] [facility] 00:00:00 00:00:00 of Care Pablo Davis [id number] ity of [id number] [id number] [facility] 403 Branch 2021-06-19 2021-06-21 [facility] [id number] [facility] 08:50:00 11:15:00 Encounter Magdaleno Sexton [id number] ity of [id number] [id number] [facility] 080 [place] 2021-06-13 2021-06-13 Outpatient NAUTIYAL, [facility] [id number] [place] 00:00:00 00:00:00 PEREZ 814 Method i 2021-05-16 2021-05-16 Outpatient NAUTIYAL, [facility] [id number] [place] 00:00:00 00:00:00 PEREZ 336 Method i 2021-04-18 2021-04-18 Outpatient NAUTIYAL, [facility] [id number] [place] 00:00:00 00:00:00 NIKOSTAN 545 Method i 2021-03-21 2021-03-21 Outpatient NAUTIYAL, [facility] [id number] [place] 00:00:00 00:00:00 PEREZ 979 Method i 2021-02-21 2021-02-21 Outpatient NAUTIYAL, [facility] [id number] [place] 00:00:00 00:00:00 PEREZ 833 Method i 2021-01-17 2021-01-17 Outpatient NAUTIYAL, [facility] [id number] [place] 00:00:00 00:00:00 KIRTAN [address] 2020-12-20 2020-12-20 Outpatient NAUTIYAL, [facility] [id number] [place] 00:00:00 00:00:00 KIRTAN [address] 2020-12-12 2020-12-12 Outpatient ROBBEN, [facility] [id number] [place] 00:00:00 00:00:00 RAÚLER [address] 2020-11-21 2020-11-21 Outpatient [facility] [id number] [place] 00:00:00 00:00:[address] 2020-11-15 2020-11-15 Outpatient NAUTIYAL, [facility] [id number] [place] 00:00:00 00:00:00 KIRTAN [address] 2020-10-11 2020-10-11 Outpatient NAUTIYAL, [facility] [id number] [place] 00:00:00 00:00:00 KIRTAN [address] 2020-09-12 2020-09-12 Outpatient NAUTIYAL, [facility] [id number] [place] 00:00:00 00:00:00 KIRTAN [address] 2020-08-16 2020-08-16 Outpatient NAUTIYAL, [facility] [id number] [place] 00:00:00 00:00:00 KIRTAN [address] 2020-08-06 2020-08-06 Outpatient NAUTIYAL, [facility] [id number] [place] 00:00:00 00:00:00 KIRTAN [address] 2020-07-19 2020-07-19 Outpatient NAUTIYAL, [facility] [id number] [place] 00:00:00 00:00:00 KIRTAN [address] 2020-06-21 2020-06-21 Outpatient NAUTIYAL, [facility] [id number] [place] 00:00:00 00:00:00 KIRTAN [address] 2020-05-24 2020-05-24 Outpatient NAUTIYAL, [facility] [id number] [place] 00:00:00 00:00:00 KIRTAN [address] 2020-04-26 2020-04-26 Outpatient NAUTIYAL, [facility] [id number] [place] 00:00:00 00:00:00 KIRTAN [address] 2020-03-22 2020-03-22 Outpatient MIRA, [facility] [id number] [place] 00:00:00 00:00:00 KIRTAN [address] 2020-02-23 2020-02-23 Outpatient MIRA, [facility] [id number] [place] 00:00:00 00:00:00 KIRTAN [address] 2020-02-02 2020-02-02 Outpatient NARAFIQIRICARDO, [facility] [id number] [place] 00:00:00 00:00:00 KIRTAN [address] 2020-01-26 2020-01-26 Outpatient MIRA, [facility] [id number] [place] 00:00:00 00:00:00 KIRTAN [address] 2019-12-29 2019-12-29 Outpatient MIRA, [facility] [id number] [place] 00:00:00 00:00:00 KIRTAN 175 Method i 2019-11-24 2019-11-24 Outpatient MIRA, [facility] [id number] [place] 00:00:00 00:00:00 KIRTAN [address] Results Test Description Test Time Test Comments Results Result Comments Source POCT GLUCOSE (AUTOMATED) 2021-06-21 13:51:04 Test Item Value Reference Range Interpretation Comme nts POCT GLU (test code = 9954021981) 99 mg/dL 70-110 Lab Interpretation (test code = 08258-5) [facility] 12:40:16 Test Item Value Reference Range Interpretation Comments MAGNESIUM (test code = 0752159743) 2.3 mg/dL 1.7-2.4 Lab Interpretation (test code = Normal 41166-5) [id number] 12:40:15 Test Item Value Reference Range Interpretation Comments ALBUMIN (test code = 3.6 g/dL 3.5-5.0 2565807762) CALCIUM (test code = 8.9 mg/dL 8.6-10.6 4639206114) CO2 TOTAL (test code = 23 mmol/L 23-31 8442181870) CREATININE (test code = 1.36 mg/dL 0.60-1.25 H 4004599971) GLUCOSE (test code = 87 mg/dL 70-110 5523703190) K (test code = 4.2 mmol/L 3.5-5.0 9406736599) NA (test code = 135 mmol/L 135-145 5369506300) BUN (test code = 34 mg/dL 7-23 H 3961557797) PHOSPHORUS (test code = 3.9 mg/dL 2.5-5.0 6485596718) eGFR (test code = mL/min/1.73m2 6667953377) ALYSIA (test code = ALYSIA) Association of [...] tests). Lab Interpretation Abnormal (test code = 02125-5) [facility] BranchELECTROLYTES PANEL ([id number])(NA, K, CL, CO2) 2021-06-21 12:39:35 Test Item Value Reference Range Interpretation Comments NA (test code = 3917904723) 135 mmol/L 135-145 K (test code = 9332961420) 4.2 mmol/L 3.5-5.0 CL (test code = 2361647733) 107 mmol/L 98-108 CO2 TOTAL (test code = 9762782336) 23 mmol/L 23-31 AGAP (test code = 7847459100) 2-16 Lab Interpretation (test code = Normal 12364-6) [facility] ([id number])(NA, K, CL, CO2) 2021-06-21 02:05:41 Test Item Value Reference Range Interpretation Comments NA (test code = 0834309527) 130 mmol/L 135-145 L K (test code = 4797637754) 4.2 mmol/L 3.5-5.0 CL (test code = 8584896444) 99 mmol/L 98-108 CO2 TOTAL (test code = 2714153067) 23 mmol/L 23-31 AGAP (test code = 1853602801) 2-16 Lab Interpretation (test code = Abnormal 01883-8) [facility] GLUCOSE (AUTOMATED)2021-06-21 01:32:17 Test Item Value Reference Range Interpretation Comments POCT GLU (test code = 4712920747) 163 mg/dL 70-110 H Lab Interpretation (test code = Abnormal 54864-9) [facility] GLUCOSE (AUTOMATED)2021-06-21 01:32:11 Test Item Value Reference Range Interpretation Comments POCT GLU (test code = 3671408512) 111 mg/dL 70-110 H Lab Interpretation (test code = Abnormal 74064-3) [facility] [id number] 19:50:07 ABSOLUTE LYMPHOPENIA. NORMOCYTIC NORMOCHROMIC ANEMIA. PLATELETS ARE UNREMARKABLE.[facility] Hospital[facility]IT[facility]IN B12, [id number] 19:49:05 Test Item Value Reference Range Interpretation Comments VIT B12 (test code = 687 pg/mL 240-930 2470584949) ALYSIA (test code = ALYSIA) Biotin has been reported to cause a positive bias, interpret results relative to patient's use of biotin. Lab Interpretation (test Normal code = 24279-7) [facility] D, [id number] 19:16:59 Test Item Value Reference Range Interpretation Comments VIT D 25OH (test code = 17 ng/mL 25-80 L 36341-6) ALYSIA (test code = ALYSIA) Deficiency: <20 ng/mLInsufficiency: 20-24 ng/mLOptimal: 25-80 ng/mL Lab Interpretation (test Abnormal code = 19764-3) [facility] PAN[facility] ([id number])(NA, K, CL, CO2) 2021-06-20 18:30:32 Test Item Value Reference Range Interpretation Comments NA (test code = 9743685315) 127 mmol/L 135-145 L K (test code = 3277151900) 4.4 mmol/L 3.5-5.0 CL (test code = 6815469508) 97 mmol/L 98-108 L CO2 TOTAL (test code = 2217529471) 20 mmol/L 23-31 L AGAP (test code = 2798153876) 2-16 Lab Interpretation (test code = Abnormal 73270-0) [facility] GLUCOSE (AUTOMATED)2021-06-20 18:02:33 Test Item Value Reference Range Interpretation Comments POCT GLU (test code = 7915784207) 118 mg/dL 70-110 H Lab Interpretation (test code = Abnormal 73713-1) [facility] GLUCOSE (AUTOMATED)2021-06-20 18:02:33 Test Item Value Reference Range Interpretation Comments POCT GLU (test code = 5697817885) 181 mg/dL 70-110 H Lab Interpretation (test code = Abnormal 78864-5) [facility]2021-[facility]-08 16:36:31 Test Item Value Reference Range Interpretation Comments FOLATE SER (test code = >20.0 3.0-20.0 H Biot in has been 1668568667) reported to cau se a positive bias, interpret resul ts relative to patient's use o f biotin. Lab Interpretation (test Abnormal code = 90856-9) [facility] [id number] 12:37:06 Test Item Value Reference Range Interpretation Comments ALBUMIN (test code = 3.8 g/dL 3.5-5.0 0088404804) CALCIUM (test code = 8.7 mg/dL 8.6-10.6 3696202242) CO2 TOTAL (test code = 20 mmol/L 23-31 L 3812609702) CREATININE (test code = 1.64 mg/dL 0.60-1.25 H 5500293148) GLUCOSE (test code = 82 mg/dL 70-110 2111161021) K (test code = 4.1 mmol/L 3.5-5.0 7947623162) NA (test code = 126 mmol/L 135-145 L 1013317267) BUN (test code = 43 mg/dL 7-23 H 9612792260) PHOSPHORUS (test code = 4.2 mg/dL 2.5-5.0 7055267215) eGFR (test code = mL/min/1.73m2 2797719202) ALYSIA (test code = ALYSIA) Association of [...] tests). Lab Interpretation Abnormal (test code = 34658-8) [facility]21-[facility] 12:37:06 Test Item Value Reference Range Interpretation Comments MAGNESIUM (test code = 3275768857) 2.3 mg/dL 1.7-2.4 Lab Interpretation (test code = Normal 26537-3) [facility] GLUCOSE (AUTOMATED)2021-06-20 12:01:50 Test Item Value Reference Range Interpretation Comments POCT GLU (test code = 1390637978) 114 mg/dL 70-110 H Lab Interpretation (test code = Abnormal 90760-8) [facility] GLUCOSE (AUTOMATED)2021-06-20 04:48:58 Test Item Value Reference Range Interpretation Comments POCT GLU (test code = 9151242092) 137 mg/dL 70-110 H Lab Interpretation (test code = Abnormal 16811-5) [facility]04206[facility]NA, K, CL, CO2) 2021-06-20 04:41:11 Test Item Value Reference Range Interpretation Comments NA (test code = 9413465823) 122 mmol/L 135-145 L K (test code = 5896565168) 4.0 mmol/L 3.5-5.0 CL (test code = 8093211282) 94 mmol/L 98-108 L CO2 TOTAL (test code = 1201843862) 20 mmol/L 23-31 L AGAP (test code = 1511437522) 2-16 Lab Interpretation (test code = Abnormal 11009-4) [facility] GLUCOSE (AUTOMATED)2021-06-20 02:04:20 Test Item Value Reference Range Interpretation Comments POCT GLU (test code = 0606150163) 166 mg/dL 70-110 H Lab Interpretation (test code = Abnormal 19966-1) [facility] (18412)(NA, K, CL, CO2) 2021-06-19 22:21:27 Test Item Value Reference Range Interpretation Comments NA (test code = 3870840747) 120 mmol/L 135-145 L K (test code = 6002616036) 4.3 mmol/L 3.5-5.0 CL (test code = 4598132886) 90 mmol/L 98-108 L CO2 TOTAL (test code = 4997490243) 22 mmol/L 23-31 L AGAP (test code = 2242312368) 2-16 Lab Interpretation (test code = Abnormal 77938-3) [facility] [id number] 20:32:51 Test Item Value Reference Range Interpretation Comments OSMOLALITY (test code = See_Comment L [Au tomated message] 5044687697) The system [employer] generated this result transmitted ref erence range: 278 - 30 5 mOsm/kg. The reference range was not used to int erpret this result as normal/abnormal . Lab Interpretation (test Abnormal code = 55023-8) [facility]RETICULOCYTES [id number] 18:52:41 Test Item Value Reference Range Interpretation Comments RETIC Count Automated 4.16 % 0.59-2.24 H (test code = 0154092210) RETIC Absolute Count See_Comment H [Autom ated message] (test code = 8549207724) The system which generated this result transmitted ref erence range: 0.0260 - 0.1170 10*6/?L. The reference range was not used to int erpret this result as normal/abnormal . IRF % (test code = 24.00 % 2.00-19.10 H 5328824813) RETIC-HE (test code = 35.8 pg 27.3-36.4 6919732788) Lab Interpretation (test Abnormal code = 31898-7) [facility]FERRITIN [id number] 18:12:11 Test Item Value Reference Range Interpretation Comments FERRITIN (test code = 245.0 ng/mL 18.0-464.0 5246405880) ALYSIA (test code = ALYSIA) Biotin has been reported to cause a negative bias, interpret results relative to patient's use of biotin. Lab Interpretation (test Normal code = 55463-0) [facility] HospitalTHYROID STIMULATING [id number] 18:07:51 Test Item Value Reference Range Interpretation Comments TSH (test code = See_Comment [Automated message] 7350267856) The system [employer] generated this result transmitted ref erence range: 0.45 - 4 .70 mIU/L. The refe rence range was not u sed to interpret this result as normal/abnor mal. Lab Interpretation (test Normal code = 79623-9) [facility] HospitalIRON [id number] 17:46:47 Test Item Value Reference Range Interpretation Comments IRON (test code = 1123632992) 38 ug/dL 50-160 L TIBC (test code = 5972391972) 320 ug/dL 250-410 % FE SAT (test code = 8171402628) 12 % 20-50 L Lab Interpretation (test code = Abnormal 17534-9) [facility] HospitalCREATINE [id number] 17:37:28 Test Item Value Reference Range Interpretation Comments CK (test code = 3059232859) 204 U/L 33-194 H Lab Interpretation (test code = Abnormal 63773-9) [facility] HospitalGlycosylated Hemoglobin (A1C)2021-06-19 15:28:01 Test Item Value Reference Range Interpretation Comments HGB A1C (test code = 5.5 % 4.0-5.7 4548-4) ALYSIA (test code = ALYSIA) Reference RangesNormal: <5.7%Prediabetes: 5.7 - 6.4%Diabetes: > 6.5% Lab Interpretation (test Normal code = 56440-9) [facility] HospitalTROPONIN [id number] 15:23:11 Test Item Value Reference Interpretation Comments Range TROPONIN I (test 0.006 ng/mL See_Comment [Automated code = 9574434877) message] The system which generated this result [...] biotin. Lab Interpretation Normal (test code = 15425-7) [facility] HospitalN-TERMINAL [id number] 15:19:46 Test Item Value Reference Range Interpretation Comments NT-proBNP (test code 610 pg/mL See_Comment H [Autom ated = 1051527430) message] The system which generated this result transmitted reference range : <=125. The reference range was not used to interpret this result as normal/abnormal . ALYSIA (test code = ALYSIA) Biotin has been reported to cause a negative bias, interpret results relative to patient's use of biotin. Lab Interpretation Abnormal (test code = 47780-9) [facility]MAGNESIUM2021-10-07 15:12:30 Test Item Value Reference Range Interpretation Comments MAGNESIUM (test code = 2514565753) 2.2 mg/dL 1.7-2.4 Lab Interpretation (test code = Normal 54803-3) [facility] HospitalCOMP. METABOLIC PANEL (77191)2021-06-19 15:12:25 Test Item Value Reference Range Interpretation Comments NA (test code = 120 mmol/L 135-145 L 9388016700) K (test code = 4.3 mmol/L 3.5-5.0 9697233375) CL (test code = 87 mmol/L 98-108 L 3962233914) CO2 TOTAL (test code = 22 mmol/L 23-31 L 5408896510) AGAP (test code = 2-16 2028222286) BUN (test code = 47 mg/dL 7-23 H 3630230015) GLUCOSE (test code = 110 mg/dL 70-110 8464173795) CREATININE (test code = 1.74 mg/dL 0.60-1.25 H 5130961090) TOTAL BILI (test code = 0.6 mg/dL 0.1-1.7 3664612410) CALCIUM (test code = 9.3 mg/dL 8.6-10.6 6819880586) T PROTEIN (test code = 7.2 g/dL 6.3-8.2 9162537423) ALBUMIN (test code = 4.6 g/dL 3.5-5.0 4349795919) ALK PHOS (test code = 99 U/L 34-122 2202670676) ALTv (test code = 48 U/L 5-50 1742-6) AST(SGOT) (test code = 39 U/L 13-40 6993949352) eGFR (test code = mL/min/1.73m2 3549135344) ALYSIA (test code = ALYSIA) Association of [...] tests). Lab Interpretation Abnormal (test code = 66669-7) [facility]PHOSPHORUS2021-10-07 15:12:04 Test Item Value Reference Range Interpretation Comments PHOSPHORUS (test code = 6315993659) 4.4 mg/dL 2.5-5.0 Lab Interpretation (test code = Normal 69331-0) [facility] HospitalURIC [id number] 15:12:04 Test Item Value Reference Range Interpretation Comments URIC ACID (test code = 6991842048) 9.8 mg/dL 3.6-8.0 H Lab Interpretation (test code = Abnormal 51988-5) [facility] HospitalCBC WITH [id number] 14:38:02 Test Item Value Reference Range Interpretation Comments WBC (test code = See_Comment [Automated 8190-2) message] The sy stem which generated this [...] RDW-SD (test code = 38.5 fL 38.5-51.6 13731-9) RDW-CV (test code = 12.1 % 12.1-15.4 788-0) PLT (test code = See_Comment [Automated 777-3) message] The sy stem which generated this result transmitted reference range : 150 - 328 10*3/ ?L. The reference r kathe was not used to interpret this result as normal/abnormal . MPV (test code = 10.0 fL 9.8-13.0 28062-8) NRBC/100 WBC (test See_Comment [Automat ed code = 4956182823) message] The system which generated this result transmitted reference range : 0.0 - 10.0 /100 WBCs. The refer ence range was not u sed to interpret th is result as normal/abnormal . NRBC x10^3 (test code <0.01 See_Comment [Auto mated = 9620757981) message] The s ystem which generated this result transmitted reference range : 10*3/?L. The reference range was not used to interpret this result as normal/abnormal . GRAN MAT (NEUT) % 71.7 % (test code = 770-8) IMM GRAN % (test code 0.60 % = 5468133673) LYMPH % (test code = 12.4 % 736-9) MONO % (test code = 12.1 % 5905-5) EOS % (test code = 2.7 % 713-8) BASO % (test code = 0.5 % 706-2) GRAN MAT x10^3(ANC) 4.44 10*3/uL 1.99-6.95 (test code = 2709730611) IMM GRAN x10^3 (test 0.04 10*3/uL 0.00-0.06 code = 7474843434) LYMPH x10^3 (test code 0.77 10*3/uL 1.09-3.23 L = 731-0) MONO x10^3 (test code 0.75 10*3/uL 0.36-1.02 = 742-7) EOS x10^3 (test code = 0.17 10*3/uL 0.06-0.53 711-2) BASO x10^3 (test code 0.03 10*3/uL 0.01-0.09 = 704-7) Lab Interpretation Abnormal (test code = 93715-5) [facility] [id number] 11:32:00Surgical Pathology Report Case: [id number] Authorizing Provider: Abran Berrios MD Collected: 02/03/2017 0845 Ordering Location: [facility] Diagnostic Imaging Received: 02/03/2017 0915 Pathologist: [...] diabetic nephropathy. J Am Soc Nephrol 21:556-563, 2009.42008, 17078 x3, 69045, 67709 x7, 17610Ifnnzjpnfrg, DM and serum creatinine 1.3 to 1.4Left kidneyThe specimen is received in saline and consists of two white-irvin tissue cores each measuring 1.5 cm in length and 0.1 cm indiameter. One of the tissue cores is bisected and submitted into glutaraldehyde and PBS solution respectively. The other tissue core is submitted into formalin. 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 Glomeruli: Approximately 18 glomeruli are examined of which 2 glomeruli are globally sclerotic/obsolescent. The remaining non-globally sclerotic glomeruli are enlarged and have nodular mesangial expansion by PAS- and silver-positive matrix with normal to mild segmental hypercellularity. Focal Kimmelstiel Wlid nodules are seen. No endocapillary hypercellularity, crescents [...] or vascular staining. Fibrinogen: diffuse, glomerular and tubulointerstitial,weak.[place]: negative glomeruli; rare small tubular casts are [...] segmentally effaced. Tubular basement membranes are thickened.POCT-GLUCOSE [id number] 09:15:00 Test Item Value Reference Range Interpretation Comments POC-GLUCOSE METER 140 mg/dL 70-110 H TESTED AT [address] ([facility]) (test code [facility] [place] = 1538) [address] [id number] 07:43:00 Test Item Value Reference Range Interpretation Comments PROTIME ([facility]) (test code = 10.2 seconds 9.3-12.0 759) INR ([facility]) (test code = 370) 1.0 [...] code = 775) RED BLOOD CELL COUNT (BEAKER) 3.55 M/ L 4.20-5.80 L (test code [...] L 0.00-0.20 (test code = 417) POCT-GLUCOSE [id number] 07:26:00 Test Item Value Reference Range Interpretation Comments POC-GLUCOSE METER 136 mg/dL 70-110 H TESTED AT [facility] (test code [facility] [place] = 1538) [address]"
[2021-08-13] MEDS ORDERED: NA CHLORIDE 0.9% 1,000 ML ONE (17:23)
[2021-08-13 17:38] LABS: Absolute Lymphocytes (CBC) 1.1 K/uL (0.7-4.9); Basophils % 0.8 % (0-1.3); Hematocrit 26.3 % (39.6-49.0); Lymphocytes % 19.2 % (15.3-44.8); MPV 7.4 fL (7.6-11.3); RBC Red Blood Cell Count 2.87 M/uL (4.33-5.43)
[2021-08-13 17:39] LABS: Protime INR 0.97
[2021-08-13 18:00] LABS: ALT/SGPT 69 U/L (12-78); AST/SGOT 40 U/L (15-37); Albumin 3.8 g/dL (3.4-5.0); Alkaline Phosphatase 177 U/L (45-117); BUN Blood Urea Nitrogen 81 mg/dL (7-18); Bicarbonate 17 mmol/L (21-32); Bilirubin Direct < 0.1 mg/dL (0-0.2); Bilirubin Total 0.3 mg/dL (0.2-1.0); Glucose Level 157 mg/dL (74-106); Magnesium 2.6 mg/dL (1.8-2.4); NT PRO-BNP 1541 pg/mL (<125); Potassium 5.4 mmol/L (3.5-5.1); Protein, Total 7.8 g/dL (6.4-8.2); Sodium Level 130 mmol/L (136-145); Troponin (Emerg Dept Use Only) < 0.02 ng/mL (0.0-0.045)
--- NOTE | 2021-08-13 18:07 | ER ---
Nurse's Notes [facility] Name: Ivan Parra Age: 61 yrs Sex: Male : 1960 Arrival Date: 08/13/2021 Time: 17:01 Bed 12 Private MD: Diagnosis: Angina pectoris, unspecified;Unstable angina;Essential (primary) hypertension;Unspecified kidney failure-CHRONIC KIDNEY FAILURE;Hyperkalemia Presentation: 08/13 17:11 Chief complaint: EMS states: chest pain that started today. Coronavirus screen: Vaccine as6 status: Patient reports receiving the 2nd dose of the covid vaccine. Ebola Screen: No symptoms or risks identified at this time. Initial Sepsis Screen: Does the patient meet any 2 criteria? No. Patient's initial sepsis screen is negative. Does the patient have a suspected source of infection? No. Patient's initial sepsis screen is negative. Risk Assessment: Do you want to hurt yourself or someone else? Patient reports no desire to harm self or others. Onset of symptoms was August 13, 2021. Care prior to arrival: Medication(s) given: ASA, 325 mg, Nitroglycerin, 0.4 mg SL x 1, 100 mcg fentanyl IV initiated. 18 GA, in the right antecubital area, Glucose check: 154 Oxygen administered. via nasal cannula. 17:11 Method Of Arrival: EMS: [facility] as6 17:11 Acuity: KERWIN 3 as6 Historical: - Allergies: 17:15 No Known Allergies; as6 - Home Meds: 17:15 aspirin 81 mg Oral chew 1 tab once daily [Active]; febuxostat 40 mg Oral tab 1 tab once as6 daily [Active]; ferrous sulfate 325 mg (65 mg iron) Oral tab 1 tab once daily [Active]; cholecalciferol (vitamin D3) Oral daily [Active]; rosuvastatin 40 mg Oral cpSP 1 cap once daily [Active]; lisinopril 10 mg Oral tab 1 tab once daily [Active]; levocetirizine 5 mg Oral tab 1 tab once daily [Active]; Jentadueto XR 2.5-1,000 mg Oral TBph 1 tab once daily [Active]; icosapent ethyl 1 gram Oral cap 2 caps 2 times per day [Active]; - PMHx: 17:15 diabetes mellitus; Hypercholesterolemia; Hypertensive disorder; kidney disease; as6 Myocardial infarction; Congestive heart failure; - PSHx: 17:15 kidney biopsy; Stented artery; as6 - Immunization history:: Adult Immunizations up to date. - Social history:: Smoking status: Patient denies any tobacco usage or history of. - Family history:: pertinent for heart disease, hypertension, hyperlipidemia. Screenin:20 Abuse screen: Denies threats or abuse. Nutritional screening: No deficits noted. as6 Tuberculosis screening: No symptoms or risk factors identified. Fall Risk None identified. Assessment: 17:18 General: Appears in no apparent distress. comfortable, Behavior is calm, cooperative. as6 Pain: Complains of pain in chest. Neuro: Level of Consciousness is awake, alert, obeys commands, Oriented to person, place, time, situation. Cardiovascular: Reports chest pain, Capillary refill < 3 seconds Patient's skin is warm and dry. Respiratory: Airway is patent Trachea midline Respiratory effort is even, unlabored, Respiratory pattern is regular, symmetrical. Derm: Skin is intact, is healthy with good turgor. 19:42 Reassessment: Patient appears in no apparent distress at this time. Patient and/or ld1 family updated on plan of care and expected duration. Pain level reassessed. Patient is alert, oriented x 3, equal unlabored respirations, skin warm/dry/pink. Family at bedside, RR 18. 20:06 Reassessment: Report given to TANNER Larson at [facility] for patient transfer to ER. lp1 21:33 Reassessment: Primary nurse reports low BP of 94 systolic, patient complaint of chest lp1 pain; Verbal order to hold Morphine, remove Nitro paste, administer NS 500ml bolus IV and Fentanyl 50mcg IV now; EMS at bedside for transfer. 21:41 Reassessment: [facility] at bedside receiving report for transfer. Pt c/o nausea ld1 and left chest pain. Pt requesting pain medication. Notified ERP. See MAR for orders. BP 94/52. NS 500 mL bolus received. Prior to transfer pt BP 106/69. Vital Signs: 17:11 BP 179 / 91; Pulse 104; Resp 20 S; Temp 98.1(O); Pulse Ox 100% on R/A; Weight 79.38 kg as6 (R); Height 5 ft. 8 in. (172.72 cm) (R); Pain 3/10; 19:42 BP 157 / 80; Pulse 107; Resp 17; Pulse Ox 100% on R/A; ld1 21:15 BP 94 / 52; Pulse 96; ld1 21:43 BP 106 / 69; Pulse 99; Resp 18; Pulse Ox 100% on R/A; ld1 17:11 Body Mass Index 26.61 (79.38 kg, 172.72 cm) as6 ED Course: 17:01 Patient arrived in ED. as6 17:11 Jerome De La O, RN is Primary Nurse. as6 17:15 Triage completed. as6 17:17 Arm band placed on. as6 17:19 Josue Morley MD is Attending Physician. [facility] 17:20 Bed in low position. Call light in reach. Side rails up X2. Adult w/ patient. Pulse ox as6 on. NIBP on. 18:07 XRAY Chest (1 view) In Process Unspecified. EDMS 18:07 Maintain EMS IV. Dressing intact. Good blood return noted. Site clean \T\ dry. Gauge \T\ as 6 site: 18g r ac. 19:05 Inserted saline lock: 18 gauge in left forearm, using aseptic technique. 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 ): Aspirin Chewable Tablet 162 mg PO once as6 18:58 Drug: Nitro-Bid (nitroglycerin) Ointment 2 % 1 inches Route: Transdermal; Site: as6 anterior chest wall; 18:59 Drug: Heparin (ID Drip) 12 units/kg/hr - (HEParin 86163 units, D5W 500 ml) as6 {Co-Signature: jh5 (Gladys Szymanski RN).} Route: IV; Rate: calculated rate; Site: left forearm; 18:59 Drug: Lopressor (metoprolol TARTRATE) 50 mg Route: PO; as6 18:59 Drug: Lasix (furosemide) 40 mg Route: IVP; Site: right antecubital; as6 18:59 Drug: Kayexalate (polystyrene) 30 grams Route: PO; as6 19:01 Drug: Heparin (ID-Bolus No thrombolytic) - HEParin 60 units/kg {Co-Signature: ld1 as6 (Elodia Cartwright RN).} Route: IVP; Site: left forearm; 19:03 Not Given (Patient Refused): morphine 2 mg IVP once; (PAIN>8) RASS on ADMN: Combtv4, as6 Very Agttd3, Agttd2, Rstlss1, AlertClm0, Drwsy-1, LtSdtn-2, ModSdtn-3, DpSdtn-4, UnArsble-5 x2 19:03 Not Given (Patient Refused): Zofran (Ondansetron) 4 mg IVP once; over 2 minutes as6 20:36 Not Given (Patient Refused): Albuterol 2.5 mg Inhalation once ld1 Outcome: 18:06 ER care complete, transfer ordered by MD. richmond 21:48 Patient left the ED. [facility] Signatures: Dispatcher [employer] EDMS Josue Morley MD MD cha Pena, Laura, RN RN 1 Elodia Cartwright RN RN ld1 Gladys Szymanski RN RN 5 Jerome DeL a O RN RN as6 Elodia Cartwright RN ld1 Gladys Szymanski RN 5
--- NOTE | 2021-08-13 18:07 | EDPHYS ---
Physician Documentation [facility] Name: Ivan Parra Age: 61 yrs Sex: Male : 1960 Arrival Date: 08/13/2021 Time: 17:01 Bed 12 Private MD: ED Physician Josue Morley HPI: 08/13 18:00 This 61 yrs old Male presents to ER via EMS with complaints of chest pain and yi sob. 18:00 The patient or guardian reports chest pain that is located primarily in the substernal yi area. Onset: this morning. The pain does not radiate. Associated signs and symptoms: Pertinent positives: shortness of breath. The chest pain is described as causing indigestion, a pressure. Duration: The patient or guardian reports multiple episodes, that wax and wane. Modifying factors: The symptoms are alleviated by nothing. the symptoms are aggravated by activity. Severity of pain: At its worst the pain was moderate in the emergency department the pain has improved moderately. The patient has experienced similar episodes in the past, multiple times. Historical: - Allergies: 17:15 No Known Allergies; as6 - Home Meds: 17:15 aspirin 81 mg Oral chew 1 tab once daily [Active]; febuxostat 40 mg Oral tab 1 tab once as6 daily [Active]; ferrous sulfate 325 mg (65 mg iron) Oral tab 1 tab once daily [Active]; cholecalciferol (vitamin D3) Oral daily [Active]; rosuvastatin 40 mg Oral cpSP 1 cap once daily [Active]; lisinopril 10 mg Oral tab 1 tab once daily [Active]; levocetirizine 5 mg Oral tab 1 tab once daily [Active]; Jentadueto XR 2.5-1,000 mg Oral TBph 1 tab once daily [Active]; icosapent ethyl 1 gram Oral cap 2 caps 2 times per day [Active]; - PMHx: 17:15 diabetes mellitus; Hypercholesterolemia; Hypertensive disorder; kidney disease; as6 Myocardial infarction; Congestive heart failure; - PSHx: 17:15 kidney biopsy; Stented artery; as6 - Immunization history:: Adult Immunizations up to date. - Social history:: Smoking status: Patient denies any tobacco usage or history of. - Family history:: pertinent for heart disease, hypertension, hyperlipidemia. ROS: 18:00 Constitutional: Negative for fever, chills, and weight loss, Eyes: Negative for injury, yi pain, redness, and discharge, ENT: Negative for injury, pain, and discharge, Neck: Negative for injury, pain, and swelling, Abdomen/GI: Negative for abdominal pain, nausea, vomiting, diarrhea, and constipation, Back: Negative for injury and pain, : Negative for injury, bleeding, discharge, and swelling, MS/Extremity: Negative for injury and deformity, Skin: Negative for injury, rash, and discoloration, Neuro: Negative for headache, weakness, numbness, tingling, and seizure, Psych: Negative for depression, anxiety, suicide ideation, homicidal ideation, and hallucinations, Allergy/Immunology: Negative for hives, rash, and allergies, Endocrine: Negative for neck swelling, polydipsia, polyuria, polyphagia, and marked weight changes, Hematologic/Lymphatic: Negative for swollen nodes, abnormal bleeding, and unusual bruising. 18:00 Cardiovascular: Positive for chest pain. 18:00 Respiratory: Positive for shortness of breath. Exam: 18:00 Constitutional: This is a well developed, well nourished patient who is awake, alert, yi and in no acute distress. Head/Face: Normocephalic, atraumatic. Eyes: Pupils equal round and reactive to light, extra-ocular motions intact. Lids and lashes normal. Conjunctiva and sclera are non-icteric and not injected. Cornea within normal limits. Periorbital areas with no swelling, redness, or edema. ENT: Nares patent. No nasal discharge, no septal abnormalities noted. Tympanic membranes are normal and external auditory canals are clear. Oropharynx with no redness, swelling, or masses, exudates, or evidence of obstruction, uvula midline. Mucous membranes moist. Neck: Trachea midline, no thyromegaly or masses palpated, and no cervical lymphadenopathy. Supple, full range of motion without nuchal rigidity, or vertebral point tenderness. No Meningismus. Chest/axilla: Normal chest wall appearance and motion. Nontender with no deformity. No lesions are appreciated. Cardiovascular: Regular rate and rhythm with a normal S1 and S2. No gallops, murmurs, or rubs. Normal PMI, no JVD. No pulse deficits. Respiratory: Lungs have equal breath sounds bilaterally, clear to auscultation and percussion. No rales, rhonchi or wheezes noted. No increased work of breathing, no retractions or nasal flaring. Abdomen/GI: Soft, non-tender, with normal bowel sounds. No distension or tympany. No guarding or rebound. No evidence of tenderness throughout. Back: No spinal tenderness. No costovertebral tenderness. Full range of motion. Skin: Warm, dry with normal turgor. Normal color with no rashes, no lesions, and no evidence of cellulitis. MS/ Extremity: Pulses equal, no cyanosis. Neurovascular intact. Full, normal range of motion. Neuro: Awake and alert, GCS 15, oriented to person, place, time, and situation. Cranial nerves II-XII grossly intact. Motor strength 5/5 in all extremities. Sensory grossly intact. Cerebellar exam normal. Normal gait. Psych: Awake, alert, with orientation to person, place and time. Behavior, mood, and affect are within normal limits. Vital Signs: 17:11 BP 179 / 91; Pulse 104; Resp 20 S; Temp 98.1(O); Pulse Ox 100% on R/A; Weight 79.38 kg as6 (R); Height 5 ft. 8 in. (172.72 cm) (R); Pain 3/10; 19:42 BP 157 / 80; Pulse 107; Resp 17; Pulse Ox 100% on R/A; ld1 21:15 BP 94 / 52; Pulse 96; ld1 21:43 BP 106 / 69; Pulse 99; Resp 18; Pulse Ox 100% on R/A; ld1 17:11 Body Mass Index 26.61 (79.38 kg, 172.72 cm) as6 MDM: 17:19 Patient medically screened. yi 18:03 Differential diagnosis: abnormal EKG, acute myocardial infarction, anxiety, coronary yi artery disease chest wall pain, costochondritis, esophagitis, hiatal hernia, pancreatitis, peptic ulcer disease, pulmonary embolus, stable angina, unstable angina. HEART Score: History: Highly Suspicious (2), ECG: Non specific repolarization disturbance / LBTB / PM (1), Age: > 45 and < 65 years (1), Risk Factors: > or = 3 Risk factors for atherosclerotic disease (2), [Hypercholesterolemia] [Hypertension] [DM] [+ Family HX] [Obesity] Troponin: < or = 1 x Normal Limit (0). The patient was not given aspirin in the Emergency Department. Patient reports taking aspirin within the past 24 hours. The patient's deep vein thrombosis risk score was calculated as follows: Total Score: 0. This patient was found to be at low risk for a deep vein thrombosis by using the Well's assessment criteria. The patient's pulmonary embolism risk score was calculated as follows: Total Score: 0-2 points. This patient was found to be at low risk for a pulmonary embolism by using the Well's assessment criteria. JACQUI Risk Score: 1 - Three or more CAD risk factors, 1- Known CAD, 1 - ASA use in past 7 days, 1 - Recent [<24hrs] Severe Angina, 1 - ST deviation >0.5mm, TOTAL SCORE = 5. Data reviewed: vital signs, nurses notes, lab test result(s), EKG, radiologic studies, plain films. Data interpreted: desk monitor: rate is 104 beats/min, rhythm is regular, Pulse oximetry: on room air is 100 %. Test interpretation: by ED physician or midlevel provider: ECG, plain radiologic studies. 08/13 17:21 Order name: Basic Metabolic Panel [facility] 08/13 17:21 Order name: CBC with Diff [facility] 08/13 17:21 Order name: LFT's [facility] 08/13 17:21 Order name: Magnesium; Complete Time: 18:06 [facility] 08/13 17:21 Order name: NT PRO-BNP; Complete Time: 18:06 [facility] 08/13 17:21 Order name: PT-INR; Complete Time: 17:58 [facility] 08/13 17:21 Order name: Troponin (emerg Dept Use Only); Complete Time: 18:06 [facility] 08/13 17:21 Order name: XRAY Chest (1 view); Complete Time: 18:31 [facility] 08/13 17:21 Order name: SARS-COV-2 RT PCR (Document "Date of Onset" if Symptomatic); Complete Time: [facility] 19:16 08/13 17:21 Order name: Basic Metabolic Panel; Complete Time: 18:06 [facility] 08/13 17:21 Order name: CBC with Automated Diff; Complete Time: 17:58 [facility] 08/13 17:21 Order name: Liver (Hepatic) Function; Complete Time: 18:06 [facility] 08/13 17:21 Order name: EKG; Complete Time: 17:22 [facility] 08/13 17:21 Order name: Cardiac monitoring; Complete Time: 17: [facility] 08/13 17:21 Order name: EKG - Nurse/Tech; Complete Time: 17: [facility] 08/13 17:21 Order name: IV Saline Lock; Complete Time: 17: [facility] 08/13 17:21 Order name: Labs collected and sent; Complete Time: 17: [facility] 08/13 17:21 Order name: O2 Per Protocol; Complete Time: : [facility] 08/13 17:21 Order name: O2 Sat Monitoring; Complete Time: 17: [facility] Administered Medications: 17:26 Drug: NS 0.9% 1000 ml Route: IV; Rate: 75 ml/hr; Site: right antecubital; as6 17:27 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 (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 ): Aspirin Chewable Tablet 162 mg PO once as6 18:58 Drug: Nitro-Bid (nitroglycerin) Ointment 2 % 1 inches Route: Transdermal; Site: as6 anterior chest wall; 18:59 Drug: Heparin (OH Drip) 12 units/kg/hr - (HEParin 21546 units, D5W 500 ml) as6 {Co-Signature: jh5 (Gladys Szymanski RN).} Route: IV; Rate: calculated rate; Site: left forearm; 18:59 Drug: Lopressor (metoprolol TARTRATE) 50 mg Route: PO; as6 18:59 Drug: Lasix (furosemide) 40 mg Route: IVP; Site: right antecubital; as6 18:59 Drug: Kayexalate (polystyrene) 30 grams Route: PO; as6 19:01 Drug: Heparin (OH-Bolus No thrombolytic) - HEParin 60 units/kg {Co-Signature: ld1 as6 (Elodia Cartwright RN).} Route: IVP; Site: left forearm; 19:03 Not Given (Patient Refused): morphine 2 mg IVP once; (PAIN>8) RASS on ADMN: Combtv4, as6 Very Agttd3, Agttd2, Rstlss1, AlertClm0, Drwsy-1, LtSdtn-2, ModSdtn-3, DpSdtn-4, UnArsble-5 x2 19:03 Not Given (Patient Refused): Zofran (Ondansetron) 4 mg IVP once; over 2 minutes as6 20:36 Not Given (Patient Refused): Albuterol 2.5 mg Inhalation once ld1 Disposition Summary: 08/13/21 18:06 Transfer Ordered Transfer Location: [facility] yi Reason: Higher level of care yi Condition: Fair yi Problem: new yi Symptoms: have improved yi Accepting Physician: to CCU(08/13/21 21:48) jh5 Diagnosis - Angina pectoris, unspecified yi - Unstable angina yi - Essential (primary) hypertension yi - Unspecified kidney failure - CHRONIC KIDNEY FAILURE yi - Hyperkalemia yi Forms: - Medication Reconciliation Form yi - SBAR form yi Signatures: Dispatcher [employer] EDJosue Callejas MD MD cha Rees, Jessica, RN RN jh5 Jerome De La O RN RN as6 Elodia Cartwright RN ld1 Elodia Cartwright RN ld1 Gladys Szymanski RN jh5 Corrections: (The following items were deleted from the chart) 18:08 18:06 to CCU yi yi 18:15 18:08 to CCU yi yi 21:48 18:15 to CCU [place] [id number]
--- NOTE | 2021-08-13 18:19 | RAD REPORT ---
EXAM DESCRIPTION: Ronald Single View08/13/2021 6:07 pm CLINICAL HISTORY: Chest pain COMPARISON: July 2021 FINDINGS: The lungs appear clear of acute infiltrate. The heart is borderline enlarged. Upper lobe vessels are prominent indicative of pulmonary venous hypertension
[2021-08-13] MEDS ORDERED: HEPARIN 5000 UNIT/ML 1 ML VIAL ONE (18:31)
[2021-08-13] MEDS ORDERED: NITROGLYCERIN 1 GM PKT TD ONE (18:31)
[2021-08-13] MEDS ORDERED: METOPROLOL TAR 50 MG TAB ONE (18:31)
[2021-08-13] MEDS ORDERED: MORPHINE 2 MG/ML SYR ONE (18:32)
[2021-08-13] MEDS ORDERED: ONDANSETRON 4 MG/2 ML VIAL ONE ×2 (18:32→21:19)
[2021-08-13] MEDS ORDERED: ALBUTEROL 2.5 MG/3 ML NEB SOL ONE (18:32)
[2021-08-13] MEDS ORDERED: FUROSEMIDE 40 MG/4 ML VIAL ONE (18:32)
[2021-08-13] MEDS ORDERED: SOD POLYSTYREN SUL 15 GM/60 ML UCUP ONE (18:32)
[2021-08-13] MEDS ORDERED: HEPARIN/D5W 25,000 UNIT/500 ML BAG IV ONE (18:33)
[2021-08-13] MEDS ORDERED: MORPHINE 4 MG/ML SYR ONE (21:28)
[2021-08-13] MEDS ORDERED: FENTANYL CITR 100 MCG/2 ML ONE (21:35)
[2021-08-13 21:55] VITALS: TEMP 98.1; O2SAT 100
[2021-08-13 22:02] VITALS: BP 106/69
== END 2021-08-13 21:48 | disposition short-term general hospital (02) ==
LOC: ER 16:59
DX: I20.0 Unstable angina (principal); I10 Essential (primary) hypertension; E87.5 Hyperkalemia; E11.22 Type 2 diabetes mellitus with diabetic chronic kidney disease; I13.0 Hypertensive heart and chronic kidney disease with heart failure and stage 1 through stage 4 chronic kidney disease, or unspecified chronic kidney disease; N18.9 Chronic kidney disease, unspecified; I50.9 Heart failure, unspecified; Z79.82 Long term (current) use of aspirin; Z20.822 Contact with and (suspected) exposure to COVID-19
CPT/HCPCS: 93005; 85025; 80048; 36415; 83735; 85610; 80076; 84484; 83880; 71045; 99285; U0003; J1940; J1644 ×2; J3010; J7030; J2405; J2270

== ENCOUNTER 2021-08-17 21:41 | Emergency (ER) | payer BC ==
--- OUTSIDE RECORDS SUMMARY | 2021-08-17 21:46 | XMS REPORT | Continuity of Care Document ---
:[address] [facility] t Address [address] [place] [address] Care Team Providers Name Role Phone VÁSQUEZBLANQUITA MartinezO Primary Care Physician Unavailable TED Attending Clinician Unavailable ADITYA Attending Clinician Unavailable VIDA DUFFY Attending Clinician Unavailable Alondra HART, A Attending Clinician Unavailable Ted COATS Attending Clinician MIRA Attending Clinician Unavailable SHIVANI Attending Clinician Unavailable YANG Attending Clinician Unavailable TED Admitting Clinician Unavailable ADITYA Admitting Clinician Unavailable Ted COATS Admitting Clinician YANG Admitting Clinician Unavailable Payers Payer Name Policy Type Policy Number Effective Date Expiration Date S ource [facility] - [id number] 2021 00:00:00 OUT OF STATE BCBS OS [id number] 2021 00:00:00 POS/PPO/EPO Problems Condition Condition Condition Status Onset Resolution Last Treating Co mments Source Name Details Category Date Date Treatment Clinician Date Hyponatrem Hyponatrem Disease Active 2020-09 U nivers ia ia 0-07 ity of syndrome syndrome 00:00: [place] [address] Medical Branch Allergies, Adverse Reactions, Alerts Allergy Allergy Status Severity Reaction(s) Onset Inactive Treating Comm ents Source Name Type Date Date Clinician NO KNOWN Drug Active Univers ALLERGIE Class ity of S [facility] [place] [facility] NO KNOWN Allergy Active [facility] ALLERGIE S Social History Social Habit Start Date Stop Date Quantity Comments Source Exposure to Not sure University SARS-CoV-2 [place] Medical (event) Branch Tobacco use and 2021-06-192021-06-19 Never used Universit y of exposure 00:00:00 00:00:00 [facility] [place] [facility] Alcohol intake 2021-06-19 2021-06-19 Ex-drinker [facility] 00:00:00 00:00:00 (finding) [facility] [place] [facility] Sex Ass[birth year] At [birth year] Universit y of 00:00:00 00:00:00 [facility] [place] [facility] Smoking Status Start Date Stop Date Source Never smoker [facility] Medications Ordered Filled Start Stop Current Ordering Indication Dosage Frequency Signature Comments Components Source Medication Medication Date Date Medication? Clinician (SIG) Name Name amLODIPine 2020-09 Yes [id number] 5mg Take 1 U nivers 5 mg tablet 0-10 tablet by ity of 00:00: mouth [place] 00 daily. Medical Branch cholecalcif 2020-09 Yes [id number] 2000U Take 2 Univers savanah, 0-10 tablets by ity of vitamin D3, 00:00: mouth [place] 25 mcg 00 daily. Medical (1,000 Branch unit) tablet lisinopriL 2020-09 Yes [id number] 5mg Take 1 U nivers 5 mg tablet 0-10 tablet by ity of 00:00: mouth [place] 00 daily. Medical Branch amLODIPine 2020-09 Yes [id number] 5mg Take 1 U nivers 5 mg tablet 0-10 tablet by ity of 00:00: mouth [place] 00 daily. Medical Branch cholecalcif 2020-09 Yes [id number] 2000U Take 2 Univers savanah, 0-10 tablets by ity of vitamin D3, 00:00: mouth [place] 25 mcg 00 daily. Medical (1,000 Branch unit) tablet lisinopriL 2020-09 Yes [id number] 5mg Take 1 U nivers 5 mg tablet 0-10 tablet by ity of 00:00: mouth [place] 00 daily. Medical Branch febuxostat 2020-09 Yes [id number] 40mg 40 mg, U nivers (ULORIC) 0-09 Oral, ity of tablet 40 14:00: DAILY, [place] mg 00 First dose Medical on Sat Branch 06/21/21 at 0900, Until Discontinu ed, Routine lisinopriL 2020-09 Yes [id number] 5mg 5 mg, Un chani (PRINIVIL,Z 0-09 Oral, ity of ESTRIL) 14:00: DAILY, [place] tablet 5 mg 00 First dose Me dical on Sat Branch 06/21/21 at 0900, Until Discontinu ed, Routine ferrous 2020-09 Yes 325mg Take 325 Unive rs sulfate 325 0-09 mg by ity of mg (65 mg 11:52: mouth [place] iron) 04 daily. Medical tablet Branch aspirin 81 2020-09 Yes 81mg Take 81 mg U nivers mg chewable 0-09 by mouth ity of tablet 11:52: daily. [place] [address] Medical Branch levocetiriz 2020-09 Yes 5mg Take 5 mg U nivers ine 5 mg 0-09 by mouth ity of tablet 11:52: daily. [place] [address] Medical Branch rosuvastati 2020-09 Yes 40mg Take 40 mg Univers n 40 mg 0-09 by mouth ity of tablet 11:52: every [place] [address] evening. Medical With Branch dinner linagliptin 2020-09 [...] by mouth ity of tablet 11:52: daily. [place] [address] Medical Branch levocetiriz 2020-09 Yes 5mg Take 5 mg U nivers ine 5 mg 0-09 by mouth ity of tablet 11:52: daily. [place] [address] Medical [place] rosuvastati 2020-09 Yes 40mg Take 40 mg [...] Medical times Branch daily. Both eyes lisinopriL 2020-09- No 40mg Take 40 mg Univers 40 mg 0- 10-09 by mouth 2 ity of tablet 09:27: 00:00 (two) [place] 02 :00 times Medical daily. Branch hydrALAZINE 2020-09 No 50mg Take 50 mg Univers 50 mg 0- 10-09 by mouth 3 ity of tablet 09:27: 00:00 (three) [place] 02 :00 times Medical daily. Branch furosemide 2020-09- No 20mg Take 20 mg Univers 20 mg 0-09 10-09 by mouth ity of tablet 09:27: 00:00 every [place] 02 :00 morning Medical and Branch evening. 0800 am and 1400 febuxostat 2020-09 Yes [id number] 40mg Take 1 U nivers 40 mg 0-09 tablet by ity of tablet 00:00: mouth [place] 00 daily. Medical Branch febuxostat 2020-09 Yes [id number] 40mg Take 1 U nivers 40 mg 0-09 tablet by ity of tablet 00:00: mouth [place] 00 daily. Medical Branch NaCl 0.9% 2020-09 Yes [id number] IV Unive rs (NS) IV 0-08 Infusion, ity of infusion 19:15: at 100 [place] 00 mL/hr, Medical CONTINUOUS Branch , Starting on Wed06/20/21 at 1415, Until Discontinu ed, STAT amLODIPine 2020-09 Yes [id number] 5mg 5 mg, Un chani (NORVASC) 0-08 [...] Discontinu ed, Routine NaCl 0.9% 2020-09- No [id number] IV Univ ers (NS) IV 0-08 10-08 Infusion, ity of infusion 13:30: 19:02 at 75 [place] 00 :45 mL/hr, Medical CONTINUOUS Branch , Starting on Wed06/20/21 at 0830, Until Wed06/20/21 at 1402, STAT heparin 2020-09 Yes 5000U 5,000 Univers (porcine) 0-08 Units, ity of injection 11:00: [place]cut[place]o [place] 5,000 Units 00 , Q8H, [facility] First dose Branch on Wed06/20/21 at 0600, Until Discontinu ed, Routine rosuvastati 2020-09 Yes [id number] 40mg 40 mg, Univers n (CRESTOR) 0-08 Oral, QHS, it y of tablet 40 02:00: [place] dose [place] 00 on [facility] 06/19/21 at Branch 2100, Until Discontinu ed, Routine ferrous 2020-09 Yes [id number] 325mg 325 mg, Un chani sulfate 0-08 Oral, BID, ity of tablet 325 01:00: First dose [place] mg 00 on [facility] 06/19/21 at Branch 2000, Until Discontinu ed, Routine hydrALAZINE 2020-09- No [id number] 50mg 50 mg, Univers (APRESOLINE 0-08 10-08 Oral, BID, i ty of ) tablet 50 01:00: 02:31 1 dose, [place] mg 00 :00 First dose Medical (after Branch last modificati on) on [facility] 06/19/21 at 2000, Routine NaCl 0.9% 2020-09- No [id number] IV Univ ers (NS) IV 0-07 10-08 Infusion, ity of infusion 23:45: 13:20 at 100 [place] 00 :01 mL/hr, Medical CONTINUOUS Branch , Starting on [place] 06/19/21 at 1845, Until Wed06/20/21 at 0820, STAT lactated 2020-09 No 1000mL at 75 Unive rs ringers IV 0-07 10-07 mL/hr, ity of infusion 17:30: 22:41 1,000 mL, Na[place] as 1,000 mL 00 :56 IV Medical Infusion, Branch CONTINUOUS , Starting on [place] 06/19/21 at 1230, Until Wed06/19/21 at 1741, Routine Sliding 2020-09 Yes Subcutaneo [...] KIT) 01 Starting Medical injection 1 on [facility] Branch mg 06/19/21 at 1005, Until Discontinu ed, LOBO, Blood Glucose < or = 70 mg/dL and patient is unable to swallow or has mental changes. dextrose 50 2020-09 Yes 25mL 25 mL, Univ ers % in water 0-07 Slow IV ity of (D50W) 15:05: Push, PRN, [place] injection 01 Starting Medica l 25 mL on [facility] Branch 06/19/21 at 1005, Until Discontinu ed, LOBO, Blood Glucose < or = 70 mg/dL and patient is unable to swallow or has mental status changes. cholecalcif 2020-09 Yes [id number] 2000U 2,000 Univers savanah 0-07 Units, ity of (vitamin 14:45: Oral, [place] D3) tablet 00 DAILY, Medical 2,000 Units First dose Br anch on [place] 06/19/21 at 0945, Until Discontinu ed, Routine acetaminoph 2020-09 Yes 650mg 650 mg, Un chani en 0-07 Oral, ity of (TYLENOL) 14:18: Q6HPRN, [place] tablet 650 47 Starting Medic al mg on [place] Branch 06/19/21 at 0918, Until Discontinu ed, Routine, Pain (scale 1-3) glimepiride 2020-09- No 4mg Take 4 mg Univers 4 mg tablet 006-19 by mouth ity of 12:08: 00:00 daily with [place] 53 :00 breakfast. Medical Branch bisoproloL- 2020-09- No 1{tbl} Take 1 U nivers hydrochloro 006-19 tablet by it y of thiazide 12:08: 00:00 mouth 2 [place] 10-6.25 mg 53 :00 (two) Medical per tablet times Branch daily. Immunizations Ordered Filled Immunization Date Status Comments [facility] e Immunization Name Name Pneumococcal 2021-06-21 Completed [place] Polysaccharide, 00:00:00 [place] Med ical PPSV23 (PNEUMOVAX) Branch Pneumococcal 2021-06-21 Completed [place] Polysaccharide, 00:00:00 [place] Med ical PPSV23 (PNEUMOVAX) Branch Influenza Virus 2020-07-14 Completed Universit y of Vaccine Quad IM 00:00:00 [place] Med ical Multi-dose 6+ MO Branch Influenza Virus 2020-07-14 Completed Universit y of Vaccine Quad IM 00:00:00 [place] Med ical Multi-dose 6+ MO Branch Vital Signs Vital Name Observation Time Observation Value Comments Source HEIGHT 2021-08-14 00:15:00 172.7 cm WEIGHT 2021-08-14 00:15:00 79.379 kg HEIGHT 2021-08-13 23:00:00 172.7 cm WEIGHT 2021-08-13 23:00:00 79.379 kg HEIGHT 2021-08-14 00:15:00 172.7 cm WEIGHT 2021-08-14 00:15:00 79.379 kg HEIGHT 2021-08-13 23:00:00 172.7 cm WEIGHT 2021-08-13 23:00:00 79.379 kg Heart rate 2021-06-21 14:00:00 88 /min [facility] Respiratory rate 2021-06-21 14:00:00 13 /min [facility] Oxygen saturation in 2021-06-21 14:00:00 98 /min [facility] Arterial blood by [facility] [place] [facility] Pulse oximetry Branch Systolic blood 2021-06-21 13:02:00 151 mm[Hg] Univer sity [facility] [place] [facility] Diastolic blood 2021-06-21 13:02:00 75 mm[Hg] [facility] Body temperature 2021-06-21 13:02:00 36.22 Yadira Univ [facility] Body weight 2021-06-20 09:51:00 82.464 kg [facility] BMI 2021-06-20 09:51:00 27.64 kg/m2 [facility] Body height 2021-06-19 20:00:00 172.7 cm [facility] Procedures Procedure Date / Time Performing Clinician Source Performed POCT GLUCOSE (AUTOMATED) 2021-06-21 13:21:00 Magdaleno Hughes [facility] MAGNESIUM 2021-06-21 10:35:00 Delvis, [facility] OSMOLALITY URINE 2021-06-21 10:35:00 Delvis [facility] RENAL PANEL 2021-06-21 10:35[facility] 2021-06-21 [id number]NA, K, CL, CO2[facility] POTASSIUM, URINE RANDOM 2021-06-21 10:35:00 Delvis, [facility] SODIUM, URINE RANDOM 2021-06-21 10:35:00 Delvis, [facility] ELECTROLYTES PANEL 2021-06-21 01:20:[facility] ([id number]NA, K, CL, CO2) [facility] POCT GLUCOSE (AUTOMATED) 2021-06-21 01:14:00 Magdaleno [facility] POCT GLUCOSE (AUTOMATED) 2021-06-20 22:05:00 Magdaleno [facility] ELECTROLYTES PANEL 2021-06-20 17:24:[facility] ([id number]NA, K, CL, CO2) [facility] [place] OSMOLALITY URINE 2021-06-20 10:13:00 Delvis, [facility] POTASSIUM, URINE RANDOM 2021-06-20 10:13:00 Delvis, [facility] SODIUM, URINE RANDOM 2021-06-20 10:13:00 Delvis, [facility] MAGNESIUM 2021-06-20 10:12:00 Delvis, [facility] VITAMIN B12, LEVEL 2021-06-20 10:12:00 Magdaleno Hughes [facility] FOLATE 2021-06-20 10:12:00 Ted [facility] RENAL PANEL 2021-06-20 10:12:00 Delvis, [facility] VITAMIN D, 25-OH 2021-06-20 10:12:00 Ted [facility] ELECTROLYTES PANEL 2021-06-20 03:25:00 Delvis, [facility] ([id number])(NA, K, CL, CO2) [facility] POCT GLUCOSE (AUTOMATED) 2021-06-20 02:30:00 Magdaleno [facility] POCT GLUCOSE (AUTOMATED) 2021-06-20 01:12:00 Magdaleno Hughes [facility] POCT GLUCOSE (AUTOMATED) 2021-06-19 22:34:00 Magdaleno Hughes [facility] ELECTROLYTES PANEL 2021-06-19 21:21:[id number]NA, K, CL, CO2) [facility] POCT GLUCOSE (AUTOMATED) 2021-06-19 16:58:00 Magdaleno [facility] POCT GLUCOSE (AUTOMATED) 2021-06-19 14:31:00 Magdaleno [facility] PHOSPHORUS 2021-06-19 14:17:00 [place], [facility] CREATINE KINASE 2021-06-19 14:17:00 [facility]IC [facility]ID 2021-06-19 14:17:00 Delvis, [facility] MAGNESIUM 2021-06-19 14:17:00 [facility] FERR[facility] SERUM 2021-06-19 14:17:00 Magdaleno Hughes [facility] OSMOLALITY, SERUM OR 2021-06-19 14:17:00 Delvis [facility] PLASMA [facility] OSMOLALITY URINE 2021-06-19 14:17:00 Delvis [facility] TROPONIN I 2021-06-19 14:17:00 Delvis [facility] THYROID STIMULATING 2021-06-19 14:17:00 Magdaleno Hughes [facility] HORMONE [facility] COMP. METABOLIC PANEL 2021-06-19 14:17:00 Michelle Edmondson [facility] ([id number]) [facility] IRON PANEL 2021-06-19 14:17:00 [facility] DIFF CONSULT 2021-06-19 14:17:00 [facility] CBC WITH DIFF 2021-06-19 14:17:00 Delvis [facility] GLYCOSYLATED HEMOGLOBIN 2021-06-19 14:17:00 Ted [facility] (A1C) [facility] URINALYSIS MICROSCOPIC 2021-06-19 14:17:00 Michelle Edmondson [facility] RETICULOCYTES AUTOMATED 2021-06-19 14:17:[address] [facility] N-TERMINAL PRO-BNP 2021-06-19 14:17:00 [facility] POTASSIUM, URINE RANDOM 2021-06-19 14:17:[address] [facility] SODIUM, URINE RANDOM 2021-06-19 14:17:00 Michelle Edmondson [facility] PROTEIN CREAT RATIO URINE 2021-06-19 14:17:00 Michelle Edmondson [facility] Branch COVID-19 (ID NOW RAPID 2021-06-19 14:17:00 [facility] [place] [facility] ONLY COVID 2021-06-19 14:17:00 Michelle Edmondson [place] INTERPRETATION [facility] PATIENT FINANCIAL 2021-06-19 13:01:56 [facility] [place] [facility] NO SHOW OR MISSED 2021-06-19 13:01:37 Doctor Unassigned, [facility] APPOINTMENT POLICY [place] [facility] h ACKNOWLEDGEMENT NOTICE OF PRIVACY 2021-06-19 13:01:16 Doctor Unassigned, [facility] PRACTICES [place] [facility] CONSENT/REFUSAL FOR 2021-06-19 13:01:02 Doctor Unassigned, [facility] DIAGNOSIS AND TREATMENT [place] [facility] ASSIGNMENT OF BENEFITS 2021-06-19 13:00:44 Doctor Unassigned, Un [facility] [place] [facility] Encounters Start End Encounter Admission Attending Care Care Encounter Source Date/Time Date/Time Type Type Clinicians Facility Department ID 2021-07-15 Inpatient [facility] [id number] Univers 04:45:31 MAGDALENO david [facility] 2021-08-13 2021-08-15 Outpatient ER [facility]ITYA [facility] Cardiology [id number] [facility] 22:46:00 14:50:00 GOLDY 2021-07-08 2021-07-08 Outpatient [facility] [id number] [place] 00:00:00 00:00:[address] 2021-06-23 2021-06-23 Transition Siva Cantu [id number] Univers 00:00:00 00:00:00 of Care Pablo Davis [id number] [place]y [id number] [id number] [facility] 403 Branch 2021-06-19 2021-06-21 [facility] [id number] Univers 08:50:00 11:15:00 Encounter Magdalneo Sexton [id number] ity [id number] [place] [id number] [facility] 080 Branch 2021-06-13 2021-06-13 Outpatient [facility] [id number] [place] 00:00:00 00:00:00 [place] [address] 2021-05-16 2021-05-16 Outpatient NAUTIYAL, [facility] [id number] [place] 00:00:00 00:00:00 KIRTAN [address] 2021-04-18 2021-04-18 Outpatient NAUTIYAL, [facility] [id number] [place] 00:00:00 00:00:00 KIRTAN [address] 2021-03-21 2021-03-21 Outpatient NAUTIYAL, [facility] [id number] [place] 00:00:00 00:00:00 KIRTAN [address] 2021-02-21 2021-02-21 Outpatient NAUTIYAL, [facility] [id number] [place] 00:00:00 00:00:00 KIRTAN [address] 2021-01-17 2021-01-17 Outpatient NAUTIYAL, [facility] [id number] [place] 00:00:00 00:00:00 KIRTAN [address] 2020-12-20 2020-12-20 Outpatient NAUTIYAL, [facility] [id number] [place] 00:00:00 00:00:00 KIRTAN [address] 2020-12-12 2020-12-12 Outpatient ROBBEN, [facility] [id number] [place] 00:00:00 00:00:00 ED [address] 2020-11-21 2020-11-21 Outpatient [facility] [id number] [place] 00:00:00 00:00:[address] 2020-11-15 2020-11-15 Outpatient NAUTIYAL, [facility] [id number] [place] 00:00:00 00:00:00 KIRTAN [address] 2020-10-11 2020-10-11 Outpatient NAUTIYAL, [facility] [id number] [place] 00:00:00 00:00:00 KIRTAN [address] 2020-09-12 2020-09-12 Outpatient NAUTIYAL, [facility] [id number] [place] 00:00:00 00:00:00 KIRTAN [address] 2020-08-16 2020-08-16 Outpatient NAUTIYAL, [facility] [id number] [place] 00:00:00 00:00:00 KIRTAN [address] 2020-08-06 2020-08-06 Outpatient NAUTIYAL, [facility] [id number] [place] 00:00:00 00:00:00 KIRTAN [address] 2020-07-19 2020-07-19 Outpatient NAUTIYAL, [facility] [id number] [place] 00:00:00 00:00:00 KIRTAN [address] 2020-06-21 2020-06-21 Outpatient NAUTIYAL, [facility] [id number] [place] 00:00:00 00:00:00 KIRTAN [address] 2020-05-24 2020-05-24 Outpatient NAUTIYAL, [facility] [id number] [place] 00:00:00 00:00:00 KIRTAN [address] 2020-04-26 2020-04-26 Outpatient NAUTIYAL, [facility] [id number] [place] 00:00:00 00:00:00 KIRTAN [address] 2020-03-22 2020-03-22 Outpatient NAUTIYAL, [facility] [id number] [place] 00:00:00 00:00:00 KIRTAN [address] 2020-02-23 2020-02-23 Outpatient NAUTIYAL, [facility] [id number] [place] 00:00:00 00:00:00 KIRTAN [address] 2020-02-02 2020-02-02 Outpatient NAUTIYAL, [facility] [id number] [place] 00:00:00 00:00:00 KIRTAN [address] 2020-01-26 2020-01-26 Outpatient NAUTIYAL, [facility] [id number] [place] 00:00:00 00:00:00 KIRTAN [address] 2019-12-29 2019-12-29 Outpatient NAUTIYAL, [facility] [id number] [place] 00:00:00 00:00:00 KIRTAN [address] 2019-11-24 2019-11-24 Outpatient NAUTIYAL, [facility] [id number] [place] 00:00:00 00:00:00 K[place] [address] Results Test Description Test Time Test Comments Results Result Comments Source POCT-GLUCOSE METER 2021-08-15 11:33:36 Test Item Value Reference Range Interpretation Comme nts POC-GLUCOSE METER (BEAKER) 132 mg/dL 70-110 H : TESTED AT [facility] [address] [facility] (test code = 1538) [facility] X, [address]: Monitor Worker/Techni doyle ID = [id number] for Anne Gibson POCT-GLUCOSE [id number] 06:03:47 Test Item Value Reference Range Interpretation Comments POC-GLUCOSE METER 121 mg/dL 70-110 H : TESTED A T [facility] (BEAKER) (test code = [facility], 1538) [address]: Monitor Worker/Techni doyle ID = [id number] for PEDRO SCHWAB BASIC METABOLIC [id number] 06:01:00 Test Item Value Reference Range Interpretation Comments SODIUM (BEAKER) 139 meq/L 136-145 (test code = 381) POTASSIUM (BEAKER) 4.4 meq/L 3.5-5.1 (test code = 379) CHLORIDE (BEAKER) 111 meq/L 98-107 H (test code = 382) CO2 (BEAKER) (test 17 meq/L 22-29 L code = 355) BLOOD UREA NITROGEN 60 mg/dL 7-21 H (BEAKER) (test code = 354) CREATININE (BEAKER) 1.75 mg/dL 0.57-1.25 H (test code = 358) GLUCOSE RANDOM 109 mg/dL 70-105 H (BEAKER) (test code = 652) CALCIUM (BEAKER) 9.4 mg/dL 8.4-10.2 (test code = 697) EGFR (BEAKER) (test 40 mL/min/1.73 ESTIMA MELL GFR IS code = 1092) sq m NOT ACCURATE CREATININE CLEARANCE IN PREDICTING GLOMERULAR FILTRATION RATE . ESTIMATED GFR I S NOT APPLICABLE FOR DIALYSIS PATIEN TS. Monitor Worker ID - JEAN CARLOS GPOCT-GLUCOSE [id number] 21:05:06 Test Item Value Reference Range Interpretation Comments POC-GLUCOSE METER 115 mg/dL 70-110 H : TESTED A T [facility] (BEAKER) (test code = [facility], 1538) 36153: Monitor Worker/Techni doyle ID = [id number] for PEDRO SCHWAB POCT-GLUCOSE [id number] 19:02:49 Test Item Value Reference Range Interpretation Comments POC-GLUCOSE METER 144 mg/dL 70-110 H : TESTED A T [facility] 6720 (BEAKER) (test code = BLANCHE Agrawal [facility], 1538) [id number]: Monitor Worker/Techni doyle ID = [id number] for Belen Miner POCT-GLUCOSE [id number] 16:51:49 Test Item Value Reference Range Interpretation Comments POC-GLUCOSE METER 185 mg/dL 70-110 H : TESTED A T [facility] 6720 (BEAKER) (test code = [facility], 1538) 85486: Monitor Worker/Techni doyle ID = [id number] for Re liAdriana [facility], MULTI, PHARM, [id number] 15:15:00Unlisted Reason for Exam - Click Yes and Enter Reason Below->No [facility] : 1960 Sex: MFINAL REPORT PROCEDURE: MYOCARDIAL PERFUSION SPECT IMAGING (Rest/Stress)CPT CODE: 65449 INDICATION: CAD risk, intermediate risk, Chest pain CARDIOVASCULAR PROFILE:CAD History: Known CADSymptoms: AnginaRisk Factors: T2DM, HTN, HL, CKDBMI: 26.6Medications: Aspirin, Clopidogrel, Rosuvastatin STRESS PROTOCOL:Pharmacologic stress was achieved with a 10-second intravenous infusion of regadenoson 0.4 mg. The radiopharmaceutical was administered 30 seconds after the start of the regadenoson infusion. IMAGING PROTOCOL:11.0 mCi of Tc-99m sestamibi was injected intravenously at rest, and gated SPECT images were obtained. Then, 32.5 mCi of Tc-99m sestamibi was injected intravenously at peak stress, and gated SPECT images were obtained. REST FINDINGS:HR: 85/minBP: 134/75 mmHgPrelim. EKG: Normal sinus rhythm.Perfusion: Basal to mid inferior mild severity defectWall Motion: NALV Volume: Normal.RV Volume: Normal. STRESS FINDINGS:HR: 99/min (61% of MPHR)BP: 155/69 mmHgPrelim. EKG: No ischemic changes.Symptoms: Chest DiscomfortPerfusion: Basal to mid inferior moderate partially reversible defect Wall Motion: Mildly reduced global LVEF (LVEF 48%).LV Volume: Not significantly changed from rest. IMPRESSION:1. Abnormal study.2. Abnormal myocardial perfusion. There is moderate sized, moderate severity partially reversible defect within the basal to mid inferior LV wall. 3. Mildly reduced LVEF with stress. 4. Normal extracardiac tracer distribution.5. There is no prior study for comparison. Signed: Leoncio Mejia MDReport Verified Date/Time: 08/14/2021 15:15:39 Reading Location: [address] Reading Room HEMOGLOBIN [id number] 10:49:00 Test Item Value Reference Range Interpretation Comments HEMOGLOBIN A1C (LIVE) (test code = 5.5 % 4.3-6.1 368) POCT-GLUCOSE [id number] 09:34:32 Test Item Value Reference Range Interpretation Comments POC-GLUCOSE METER 145 mg/dL 70-110 H : TESTED A T [facility] 6720 (LIVE) (test code = [facility] Tanja [facility], 1538) [id number]: Monitor Worker/Techni doyle ID = [id number] for ROSSI TEE HIGH SENSITIVITY TROPONIN [id number] 05:11:36 Test Item Value Reference Range Interpretation Comments HIGH SENSITIVITY 26 pg/ml See_Comment [Automated message] TROPONIN I (test code = The system which [id number]) generated this result transmitted ref erence range: <=35. Th e reference range was not used to int erpret this result as normal/abnormal . Monitor Worker [facility] EARTH SCIENCE TECHNICAL OFFICER STAT High Sensitivity Troponin-I results should be used in conjunction with other diagnostic information such as ECG, clinical observations and information, and patient symptoms to aid in the diagnosis of IA.LIPID [id number] 05:07:50 Test Item Value Reference Range Interpretation Comments TRIGLYCERIDES (BEAKER) (test code = 150 mg/dL 540) CHOLESTEROL (BEAKER) (test code = 104 mg/dL 631) HDL CHOLESTEROL (BEAKER) (test code 37 mg/dL = 976) LDL CHOLESTEROL CALCULATED (BEAKER) 37 mg/dL (test code = 633) Triglyceride Reference Range: Low Risk <150 Borderline 150-199 High Risk 200-499 Very High Risk >=500Cholesterol Reference Range: Low Risk <200 Borderline 200-239 High Risk >240HDL Cholesterol Reference Range: Low Risk >=60 High Risk <40LDL Cholesterol Reference Range: Optimal <100 Near Optimal 100-129 Borderline 130-159 High 160-189 Very High >=190 Monitor Worker ID - GISELL MBASIC METABOLIC [id number] 05:07:49 Test Item Value Reference Range Interpretation Comments SODIUM (BEAKER) 133 meq/L 136-145 L (test code = 381) POTASSIUM (BEAKER) 4.6 meq/L 3.5-5.1 (test code = 379) CHLORIDE (BEAKER) 108 meq/L 98-107 H (test code = 382) CO2 (BEAKER) (test 16 meq/L 22-29 L code = 355) BLOOD UREA NITROGEN 67 mg/dL 7-21 H (BEAKER) (test code = 354) CREATININE (BEAKER) 1.79 mg/dL 0.57-1.25 H (test code = 358) GLUCOSE RANDOM 106 mg/dL 70-105 H (BEAKER) (test code = 652) CALCIUM (BEAKER) 8.9 mg/dL 8.4-10.2 (test code = 697) EGFR (BEAKER) (test 39 mL/min/1.73 ESTIMA MELL GFR IS code = 1092) sq m NOT ACCURATE CREATININE CLEARANCE IN PREDICTING GLOMERULAR FILTRATION RATE . ESTIMATED GFR I S NOT APPLICABLE FOR DIALYSIS PATIEN TS. Monitor Worker ID - GISELL [id number] 05:07:49 Test Item Value Reference Range Interpretation Comments MAGNESIUM (BEAKER) (test code = 2.2 mg/dL 1.6-2.6 627) Monitor Worker ID - GISELL [facility] W/PLT COUNT & AUTO [id number] 04:44:58 Test Item Value Reference Range Interpretation Comments WHITE BLOOD CELL COUNT (BEAKER) 4.2 K/ L 3.5-10.5 (test code = 775) RED BLOOD CELL COUNT (BEAKER) 2.82 M/ L 4.63-6.08 L (test code = 761) HEMOGLOBIN (BEAKER) (test code = 8.8 GM/DL 13.7-17.5 L 410) HEMATOCRIT (BEAKER) (test code = 25.7 % 40.1-51.0 L 411) MEAN CORPUSCULAR VOLUME (BEAKER) 91.1 fL 79.0-92.2 (test code = 753) MEAN CORPUSCULAR HEMOGLOBIN 31.2 pg 25.7-32.2 (BEAKER) (test code = 751) MEAN CORPUSCULAR HEMOGLOBIN CONC 34.2 GM/DL 32.3-36.5 (BEAKER) (test code = 752) RED CELL DISTRIBUTION WIDTH 14.1 % 11.6-14.4 (BEAKER) (test code = 412) PLATELET COUNT (BEAKER) (test 228 K/CU MM 150-450 code = 756) MEAN PLATELET VOLUME (BEAKER) 9.4 fL 9.4-12.4 (test code = 754) NUCLEATED RED BLOOD CELLS 0 /100 WBC 0-0 (BEAKER) (test code = 413) NEUTROPHILS RELATIVE PERCENT 62 % (BEAKER) (test code = 429) LYMPHOCYTES RELATIVE PERCENT 22 % (BEAKER) (test code = 430) MONOCYTES RELATIVE PERCENT 10 % (BEAKER) (test code = 431) EOSINOPHILS RELATIVE PERCENT 5 % (BEAKER) (test code = 432) BASOPHILS RELATIVE PERCENT 1 % (BEAKER) (test code = 437) NEUTROPHILS ABSOLUTE COUNT 2.58 K/ L 1.78-5.38 (BEAKER) (test code = 670) LYMPHOCYTES ABSOLUTE COUNT 0.93 K/ L 1.32-3.57 L (BEAKER) (test code = 414) MONOCYTES ABSOLUTE COUNT (BEAKER) 0.40 K/ L 0.30-0.82 (test code = 415) EOSINOPHILS ABSOLUTE COUNT 0.20 K/ L 0.04-0.54 (BEAKER) (test code = 416) BASOPHILS ABSOLUTE COUNT (BEAKER) 0.03 K/ L 0.01-0.08 (test code = 417) IMMATURE GRANULOCYTES-RELATIVE 0 % 0-1 PERCENT (BEAKER) (test code = 2801) PROTHROMBIN TIME/[id number] 00:46:16 Test Item Value Reference Range Interpretation Comments PROTIME (BEAKER) 14.4 seconds 11.9-14.2 H (test code = 759) INR (BEAKER) (test 1.14 See_Comment [Automat ed message] code = 370) The system [employer] generated this result transmitted ref erence range: <=5.90. The reference range was not used to int erpret this result as normal/abnormal . RECOMMENDED COUMADIN/WARFARIN INR THERAPY RANGESSTANDARD DOSE: 2.0 - 3.0 Includes: PROPHYLAXIS forvenous thrombosis, systemic embolization; TREATMENT for venous thrombosis and/or pulmonary embolus.HIGH RISK: Target INR is 2.5-3.5 for patients with mechanical heart valves.SARS-COV2/RT-PCR ([facility]) 2021-08-14 00:26:40 Test Item Value Reference Range Interpretation Comments SARS-COV2/RT-PCR Negative Negative The SARS-Co V-2 target (test code = nucleic acids a re not 4940337) detected in thi s specimen. Negative result s do not preclude SARS-C oV-2 infection and s hould not be used as the eren e basis for patient managem ent decisions. Nega tive results must be combine d with clinical observ ations, patient history , and epidemiological information. A false negativ e result may occur if a spec imen is improperly chris ected, transported or handled. This SARS CoV-2 test is a rapid, real-bibi e RT-PCR test intended for th e qualitative detection of nu cleic acid from SARS-CoV-2 in a nasopharyngeal swab specimen collected from individuals suspected of CO VID-19 by their healthcar e provider. This test has been authorized by FDA under an EUA for use by authorized laboratories. This test is only authorized for the duration of the declaration that circumstances exist justifying the authorization of emergency use of in vitro diagnostic tests for detection and/or diagnosis of COVID-19 under Section 564(b)(1) of the Federal Food, Drug and Cosmetic Act, 21 U.S.C. 360bbb- 3(b)(1), unless the authorization is terminated or revoked sooner. Fact Sheet for Healthcare Providers: https://www.[employer]/Documents/Xpert%20Xpress%20SARS%20CoV-2/Fact%20Sheets/302-3802%20SARS-COV -2%20HEALTHCARE%20PROVIDERS%20FACT%20SHEET.pdf Fact Sheet for Healthcare Patients: https://www.[employer]/Documents/Xpert %20Xpress%20SARS%20CoV-2/Fact%20Sheets/302-3801%32YGMR-WRJ-4%20PATIENT%20FACT%20 SHEET.pdfRAD, CHEST, 1 VIEW, NON [id number] 00:12:00Reason for exam:- >CPShould this be performed at the bedside?->Yes [facility] : 1960 Sex: MFINAL REPORT History: Chest pain. Comparison: None. Findings: A single view of the chest is submitted. The examination is limited by low lung volumes. The cardiac silhouette is prominent in size but magnified by low lung volumes and portable technique. Vague interstitial and alveolar opacities in the perihilar and lower lungs may reflect atelectasis given low lung volumes. Pulmonary edema or pneumonitis should be excluded clinically. There is no dense focal consolidation, pneumothorax, large pleural effusion or acute bony abnormality. Signed: Aiden Patiño MDReportVerified Date/Time: 08/14/2021 00:12:28 HIGH SENSITIVITY TROPONIN [id number] 23:42:44 Test Item Value Reference Range Interpretation Comments HIGH SENSITIVITY 38 pg/ml See_Comment H [Automated message] TROPONIN I (test code = The system which [id number]) generated this result transmitted ref erence range: <=35. Th e reference range was not used to int erpret this result as normal/abnormal . Monitor Worker ID - BSThe EARTH SCIENCE TECHNICAL OFFICER STAT High Sensitivity Troponin-I results should be used in conjunctionwith other diagnostic information such as ECG, clinical observations and information, and patient symptoms to aid in the diagnosis of IA.PT/[id number] 23:37:54 Test Item Value Reference Range Interpretation Comments PROTIME (BEAKER) (test 14.6 seconds 11.9-14.2 H code = 759) INR (BEAKER) (test 1.16 See_Comment [Automat ed code = 370) message] The system which generated this result transmit mell reference range : <=5.90. The reference range was not used to interpret this result as normal/abnormal . PARTIAL THROMBOPLASTIN 170.4 seconds 22.5-36.0 HH TIME (BEAKER) (test code = 760) RECOMMENDED COUMADIN/WARFARIN INR THERAPY RANGESSTANDARD DOSE: 2.0 - 3.0 Includes: PROPHYLAXIS forvenous thrombosis, systemic embolization; TREATMENT for venous thrombosis and/or pulmonary embolus.HIGH RISK: Target INR is 2.5-3.5 for patients with mechanical heart valves.COMPREHENSIVE METABOLIC [id number] 23:36:03 Test Item Value Reference Range Interpretation Comments TOTAL PROTEIN 7.2 gm/dL 6.0-8.3 (BEAKER) (test code = 770) ALBUMIN (BEAKER) 4.3 g/dL 3.5-5.0 (test code = 1145) ALKALINE PHOSPHATASE 132 U/L 40-150 (BEAKER) (test code = 346) BILIRUBIN TOTAL 0.3 mg/dL 0.2-1.2 (BEAKER) (test code = 377) SODIUM (BEAKER) (test 130 meq/L 136-145 L code = 381) POTASSIUM (BEAKER) 4.6 meq/L 3.5-5.1 (test code = 379) CHLORIDE (BEAKER) 104 meq/L 98-107 (test code = 382) CO2 (BEAKER) (test 15 meq/L 22-29 L code = 355) BLOOD UREA NITROGEN 77 mg/dL 7-21 H (BEAKER) (test code = 354) CREATININE (BEAKER) 1.95 mg/dL 0.57-1.25 H (test code = 358) GLUCOSE RANDOM 130 mg/dL 70-105 H (BEAKER) (test code = 652) CALCIUM (BEAKER) 9.0 mg/dL 8.4-10.2 (test code = 697) AST (SGOT) (BEAKER) 29 U/L 5-34 (test code = 353) ALT (SGPT) (BEAKER) 45 U/L 6-55 (test code = 347) EGFR (BEAKER) (test 35 mL/min/1.73 ESTIMA MELL GFR IS code = 1092) sq m NOT ACCURATE CREATININE CLEARANCE IN PREDICTING GLOMERULAR FILTRATION RATE . ESTIMATED GFR I S NOT APPLICABLE FOR DIALYSIS PATIEN TS. Monitor Worker ID - BSCBC W/PLT COUNT & AUTO [id number] 23:13:22 Test Item Value Reference Range Interpretation Comments WHITE BLOOD CELL COUNT (BEAKER) 6.1 K/ L 3.5-10.5 (test code = 775) RED BLOOD CELL COUNT (BEAKER) 2.87 M/ L 4.63-6.08 L (test code = 761) HEMOGLOBIN (BEAKER) (test code = 8.8 GM/DL 13.7-17.5 L 410) HEMATOCRIT (BEAKER) (test code = 26.0 % 40.1-51.0 L 411) MEAN CORPUSCULAR VOLUME (BEAKER) 90.6 fL 79.0-92.2 (test code = 753) MEAN CORPUSCULAR HEMOGLOBIN 30.7 pg 25.7-32.2 (BEAKER) (test code = 751) MEAN CORPUSCULAR HEMOGLOBIN CONC 33.8 GM/DL 32.3-36.5 (BEAKER) (test code = 752) RED CELL DISTRIBUTION WIDTH 14.0 % 11.6-14.4 (BEAKER) (test code = 412) PLATELET COUNT (BEAKER) (test 223 K/CU MM 150-450 code = 756) MEAN PLATELET VOLUME (BEAKER) 9.4 fL 9.4-12.4 (test code = 754) NUCLEATED RED BLOOD CELLS 0 /100 WBC 0-0 (BEAKER) (test code = 413) NEUTROPHILS RELATIVE PERCENT 68 % (BEAKER) (test code = 429) LYMPHOCYTES RELATIVE PERCENT 16 % (BEAKER) (test code = 430) MONOCYTES RELATIVE PERCENT 9 % (BEAKER) (test code = 431) EOSINOPHILS RELATIVE PERCENT 6 % (BEAKER) (test code = 432) BASOPHILS RELATIVE PERCENT 1 % (BEAKER) (test code = 437) NEUTROPHILS ABSOLUTE COUNT 4.14 K/ L 1.78-5.38 (BEAKER) (test code = 670) LYMPHOCYTES ABSOLUTE COUNT 0.99 K/ L 1.32-3.57 L (BEAKER) (test code = 414) MONOCYTES ABSOLUTE COUNT (BEAKER) 0.54 K/ L 0.30-0.82 (test code = 415) EOSINOPHILS ABSOLUTE COUNT 0.37 K/ L 0.04-0.54 (BEAKER) (test code = 416) BASOPHILS ABSOLUTE COUNT (BEAKER) 0.04 K/ L 0.01-0.08 (test code = 417) IMMATURE GRANULOCYTES-RELATIVE 0 % 0-1 PERCENT (BEAKER) (test code = 2801) POCT GLUCOSE (AUTOMATED)2021-06-21 13:51:04 Test Item Value Reference Range Interpretation Comments POCT GLU (test code = 9106189385) 99 mg/dL 70-110 Lab Interpretation (test code = Normal 34261-6) [facility] 12[facility]40:16 Test Item Value Reference Range Interpretation Comments MAGNESIUM (test code = 8701049220) 2.3 mg/dL 1.7-2.4 Lab Interpretation (test code = Normal 24242-2) [facility] CenterRENAL [id number] 12:40:15 Test Item Value Reference Range Interpretation Comments ALBUMIN (test code = 3.6 g/dL 3.5-5.0 3702810312) CALCIUM (test code = 8.9 mg/dL 8.6-10.6 2477223183) CO2 TOTAL (test code = 23 mmol/L 23-31 4240516090) CREATININE (test code = 1.36 mg/dL 0.60-1.25 H 8029983557) GLUCOSE (test code = 87 mg/dL 70-110 2796353535) K (test code = 4.2 mmol/L 3.5-5.0 6168966490) NA (test code = 135 mmol/L 135-145 7598247285) BUN (test code = 34 mg/dL 7-23 H 7500808444) PHOSPHORUS (test code = 3.9 mg/dL 2.5-5.0 1055151577) eGFR (test code = mL/min/1.73m2 3552464768) ALYSIA (test code = ALYSIA) Association of [...] tests). Lab Interpretation Abnormal (test code = 88240-5) [facility] BranchELECTROLYTES PANEL (11596)(NA, K, CL, CO2) 2021-06-21 12:39:35 Test Item Value Reference Range Interpretation Comments NA (test code = 8296816043) 135 mmol/L 135-145 K (test code = 3728670453) 4.2 mmol/L 3.5-5.0 CL (test code = 7053970765) 107 mmol/L 98-108 CO2 TOTAL (test code = 2154093234) 23 mmol/L 23-31 AGAP (test code = 6799722813) 2-16 Lab Interpretation (test code = Normal 13654-4) [facility] (71630)(NA, K, CL, CO2) 2021-06-21 02:05:41 Test Item Value Reference Range Interpretation Comments NA (test code = 7246649549) 130 mmol/L 135-145 L K (test code = 6841346560) 4.2 mmol/L 3.5-5.0 CL (test code = 6150795918) 99 mmol/L 98-108 CO2 TOTAL (test code = 5881371898) 23 mmol/L 23-31 AGAP (test code = 8320803411) 2-16 Lab Interpretation (test code = Abnormal 99300-0) [facility]2021-06-21 01:32:17 Test Item Value Reference Range Interpretation Comments POCT GLU (test code = 1163986635) 163 mg/dL 70-110 H Lab Interpretation (test code = Abnormal 19858-4) [facility] GLUCOSE (AUTOMATED)2021-06-21 01:32:11 Test Item Value Reference Range Interpretation Comments POCT GLU (test code = 0097222139) 111 mg/dL 70-110 H Lab Interpretation (test code = Abnormal 17547-1) [facility] CenterDIFF CONSULT [id number] 19:50:07 ABSOLUTE LYMPHOPENIA. NORMOCYTIC NORMOCHROMIC ANEMIA. PLATELETS ARE UNREMARKABLE.[facility] CenterVITAMIN B12, [id number] 19:49:05 Test Item Value Reference Range Interpretation Comments VIT B12 (test code = 687 pg/mL 240-930 1453635859) ALYSIA (test code = ALYSIA) Biotin has been reported to cause a positive bias, interpret results relative to patient's use of biotin. Lab Interpretation (test Normal code = 94112-3) [facility] CenterVITAMIN D, [id number] 19:16:59 Test Item Value Reference Range Interpretation Comments VIT D 25OH (test code = 17 ng/mL 25-80 L 86191-8) ALYSIA (test code = ALYSIA) Deficiency: <20 ng/mLInsufficiency: 20-24 ng/mLOptimal: 25-80 ng/mL Lab Interpretation (test Abnormal code = 43877-3) [facility] CenterELECTROLYTES PANEL (71184)(NA, K, CL, CO2) 2021-06-20 18:30:32 Test Item Value Reference Range Interpretation Comments NA (test code = 2587343527) 127 mmol/L 135-145 L K (test code = 5923264018) 4.4 mmol/L 3.5-5.0 CL (test code = 6270487341) 97 mmol/L 98-108 L CO2 TOTAL (test code = 1350238726) 20 mmol/L 23-31 L AGAP (test code = 1647408528) 2-16 Lab Interpretation (test code = Abnormal 20182-5) [facility] GLUCOSE (AUTOMATED)2021-06-20 18:02:33 Test Item Value Reference Range Interpretation Comments POCT GLU (test code = 6248287451) 118 mg/dL 70-110 H Lab Interpretation (test code = Abnormal 53823-6) [facility] GLUCOSE (AUTOMATED)2021-06-20 18:02:33 Test Item Value Reference Range Interpretation Comments POCT GLU (test code = 6422444626) 181 mg/dL 70-110 H Lab Interpretation (test code = Abnormal 68443-6) [facility] CenterFOLATE2021-[facility] 16:36:31 Test Item Value Reference Range Interpretation Comments FOLATE SER (test code = >20.0 3.0-20.0 H Biot in has been 5514206376) reported to cau se a positive bias, interpret resul ts relative to patient's use o f biotin. Lab Interpretation (test Abnormal code = 48311-3) [facility] CenterRENAL [id number] 12:37:06 Test Item Value Reference Range Interpretation Comments ALBUMIN (test code = 3.8 g/dL 3.5-5.0 5851565882) CALCIUM (test code = 8.7 mg/dL 8.6-10.6 5405548556) CO2 TOTAL (test code = 20 mmol/L 23-31 L 1928412325) CREATININE (test code = 1.64 mg/dL 0.60-1.25 H 9935252968) GLUCOSE (test code = 82 mg/dL 70-110 9312268413) K (test code = 4.1 mmol/L 3.5-5.0 2569269068) NA (test code = 126 mmol/L 135-145 L 5569531915) BUN (test code = 43 mg/dL 7-23 H 7004424543) PHOSPHORUS (test code = 4.2 mg/dL 2.5-5.0 7558121952) eGFR (test code = mL/min/1.73m2 6998028037) ALYSIA (test code = ALYSIA) Association of [...] tests). Lab Interpretation Abnormal (test code = 63038-1) [facility]MAG[facility]UM2021-[facility] 12:37:06 Test Item Value Reference Range Interpretation Comments MAGNESIUM (test code = 8951482281) 2.3 mg/dL 1.7-2.4 Lab Interpretation (test code = Normal 18070-0) [facility] GLUCOSE (AUTOMATED)2021-06-20 12:01:50 Test Item Value Reference Range Interpretation Comments POCT GLU (test code = 3033648052) 114 mg/dL 70-110 H Lab Interpretation (test code = Abnormal 74798-6) [facility] GLUCOSE (AUTOMATED)2021-06-20 04:48:58 Test Item Value Reference Range Interpretation Comments POCT GLU (test code = 3438893981) 137 mg/dL 70-110 H Lab Interpretation (test code = Abnormal 03279-6) [facility] CenterELECTROLYTES PANEL (34903)(NA, K, CL, CO2) 2021-06-20 04:41:11 Test Item Value Reference Range Interpretation Comments NA (test code = 9872764996) 122 mmol/L 135-145 L K (test code = 6102218690) 4.0 mmol/L 3.5-5.0 CL (test code = 5486802403) 94 mmol/L 98-108 L CO2 TOTAL (test code = 8878952038) 20 mmol/L 23-31 L AGAP (test code = 7991337363) 2-16 Lab Interpretation (test code = Abnormal 78444-0) [facility] GLUCOSE (AUTOMATED)2021-06-20 02:04:20 Test Item Value Reference Range Interpretation Comments POCT GLU (test code = 1294706995) 166 mg/dL 70-110 H Lab Interpretation (test code = Abnormal 62172-5) [facility] CenterELECTROLYTES PANEL (08879)(NA, K, CL, CO2) 2021-06-19 22:21:27 Test Item Value Reference Range Interpretation Comments NA (test code = 7585615539) 120 mmol/L 135-145 L K (test code = 3886970944) 4.3 mmol/L 3.5-5.0 CL (test code = 6928348054) 90 mmol/L 98-108 L CO2 TOTAL (test code = 7694132898) 22 mmol/L 23-31 L AGAP (test code = 3586349432) 2-16 Lab Interpretation (test code = Abnormal 92322-6) [facility] CenterOSMOLALITY, SERUM OR [id number] 20:32:51 Test Item Value Reference Range Interpretation Comments OSMOLALITY (test code = See_Comment L [Au tomated message] 7292354371) The system [employer] generated this result transmitted ref erence range: 278 - 30 5 mOsm/kg. The reference range was not used to int erpret this result as normal/abnormal . Lab Interpretation (test Abnormal code = 30590-6) [facility] CenterRETICULOCYTES [id number] 18:52:41 Test Item Value Reference Range Interpretation Comments RETIC Count Automated 4.16 % 0.59-2.24 H (test code = 6931280368) RETIC Absolute Count See_Comment H [Autom ated message] (test code = 8867127215) The system which generated this result transmitted ref erence range: 0.0260 - 0.1170 10*6/?L. The reference range was not used to int erpret this result as normal/abnormal . IRF % (test code = 24.00 % 2.00-19.10 H 4832619388) RETIC-HE (test code = 35.8 pg 27.3-36.4 1352124670) Lab Interpretation (test Abnormal code = 82766-8) [facility] CenterFERRITIN [id number] 18:12:11 Test Item Value Reference Range Interpretation Comments FERRITIN (test code = 245.0 ng/mL 18.0-464.0 0821859167) ALYSIA (test code = ALYSIA) Biotin has been reported to cause a negative bias, interpret results relative to patient's use of biotin. Lab Interpretation (test Normal code = 50505-0) [facility] CenterTHYROID STIMULATING [id number] 18:07:51 Test Item Value Reference Range Interpretation Comments TSH (test code = See_Comment [Automated message] 7232476953) The system [employer] generated this result transmitted ref erence range: 0.45 - 4 .70 mIU/L. The refe rence range was not u sed to interpret this result as normal/abnor mal. Lab Interpretation (test Normal code = 18371-1) [facility] CenterIRON [id number] 17:46:47 Test Item Value Reference Range Interpretation Comments IRON (test code = 0769703970) 38 ug/dL 50-160 L TIBC (test code = 4299252689) 320 ug/dL 250-410 % FE SAT (test code = 3855983533) 12 % 20-50 L Lab Interpretation (test code = Abnormal 16758-4) [facility] CenterCREATINE [id number] 17:37:28 Test Item Value Reference Range Interpretation Comments CK (test code = 1240562167) 204 U/L 33-194 H Lab Interpretation (test code = Abnormal 78929-6) [facility] CenterGlycosylated Hemoglobin (A1C)2021-06-19 15:28:01 Test Item Value Reference Range Interpretation Comments HGB A1C (test code = 5.5 % 4.0-5.7 4548-4) ALYSIA (test code = ALYSIA) Reference RangesNormal: <5.7%Prediabetes: 5.7 - 6.4%Diabetes: > 6.5% Lab Interpretation (test Normal code = 33050-1) [facility] CenterTROPONIN [id number] 15:23:11 Test Item Value Reference Interpretation Comments Range TROPONIN I (test 0.006 ng/mL See_Comment [Automated code = 5170554841) message] The system which generated this result [...] biotin. Lab Interpretation Normal (test code = 09216-5) [facility] CenterN-TERMINAL [id number] 15:19:46 Test Item Value Reference Range Interpretation Comments NT-proBNP (test code 610 pg/mL See_Comment H [Autom ated = 5050454980) message] The system which generated this result transmitted reference range : <=125. The reference range was not used to interpret this result as normal/abnormal . ALYSIA (test code = ALYSIA) Biotin has been reported to cause a negative bias, interpret results relative to patient's use of biotin. Lab Interpretation Abnormal (test code = 79210-6) [facility] CenterMAGNESIUM2021-10-07 15:12:30 Test Item Value Reference Range Interpretation Comments MAGNESIUM (test code = 6711043166) 2.2 mg/dL 1.7-2.4 Lab Interpretation (test code = Normal 22744-1) [facility] CenterCOMP. METABOLIC PANEL (51323)2021-06-19 15:12:25 Test Item Value Reference Range Interpretation Comments NA (test code = 120 mmol/L 135-145 L 5015088951) K (test code = 4.3 mmol/L 3.5-5.0 7642625225) CL (test code = 87 mmol/L 98-108 L 9083237790) CO2 TOTAL (test code = 22 mmol/L 23-31 L 7000570336) AGAP (test code = 2-16 6882938576) BUN (test code = 47 mg/dL 7-23 H 9302291057) GLUCOSE (test code = 110 mg/dL 70-110 7800344309) CREATININE (test code = 1.74 mg/dL 0.60-1.25 H 3844874433) TOTAL BILI (test code = 0.6 mg/dL 0.1-1.2 4248561751) CALCIUM (test code = 9.3 mg/dL 8.6-10.6 8848549355) T PROTEIN (test code = 7.2 g/dL 6.3-8.2 4803347292) ALBUMIN (test code = 4.6 g/dL 3.5-5.0 4113456969) ALK PHOS (test code = 99 U/L 34-122 7268214369) ALTv (test code = 48 U/L 5-50 1742-6) AST(SGOT) (test code = 39 U/L 13-40 5506132187) eGFR (test code = mL/min/1.73m2 5511109372) ALYSIA (test code = ALYSIA) Association of [...] tests). Lab Interpretation Abnormal (test code = 50133-0) [facility] CenterPHOSPHORUS2021-10-07 15:12:04 Test Item Value Reference Range Interpretation Comments PHOSPHORUS (test code = 1957950682) 4.4 mg/dL 2.5-5.0 Lab Interpretation (test code = Normal 83461-2) [facility] CenterURIC [id number] 15:12:04 Test Item Value Reference Range Interpretation Comments URIC ACID (test code = 3302169032) 9.8 mg/dL 3.6-8.0 H Lab Interpretation (test code = Abnormal 14667-5) [facility] CenterCB WITH [id number] 14:38:02 Test Item Value Reference Range Interpretation [...] RDW-SD (test code = 38.5 fL 38.5-51.6 67131-3) RDW-CV (test code = 12.1 % 12.1-15.4 788-0) PLT (test code = See_Comment [Automated 777-3) message] The sy stem which generated this result transmitted reference range : 150 - 328 10*3/ ?L. The reference r kathe was not used to interpret this result as normal/abnormal . MPV (test code = 10.0 fL 9.8-13.0 25411-1) NRBC/100 WBC (test See_Comment [Automat ed code = [id number]) message] The system which generated this result transmitted reference range : 0.0 - 10.0 /100 WBCs. The refer ence range was not u sed to interpret th is result as normal/abnormal . NRBC x10^3 (test code <0.01 See_Comment [Auto mated = [id number]) message] The s ystem which generated this result transmitted reference range : 10*3/?L. The reference range was not used to interpret this result as normal/abnormal . GRAN MAT (NEUT) % 71.7 % (test code = 770-8) IMM GRAN % (test code 0.60 % = [id number]) LYMPH % (test code = 12.4 % 736-9) MONO % (test code = 12.1 % 5905-5) EOS % (test code = 2.7 % 713-8) BASO % (test code = 0.5 % 706-2) GRAN MAT x10^3(ANC) 4.44 10*3/uL 1.99-6.95 (test code = 5772699925) IMM GRAN x10^3 (test 0.04 10*3/uL 0.00-0.06 code = 7262174263) LYMPH x10^3 (test code 0.77 10*3/uL 1.09-3.23 L = 731-0) MONO x10^3 (test code 0.75 10*3/uL 0.36-1.02 = 742-7) EOS x10^3 (test code = 0.17 10*3/uL 0.06-0.53 711-2) BASO x10^3 (test code 0.03 10*3/uL 0.01-0.09 = 704-7) Lab Interpretation Abnormal (test code = 92484-5) [facility] [id number] 11:32:00Surgical Pathology Report Case: [id number] Authorizing Provider: Abran Berrios MD Collected: 02/03/2017 0845 Ordering Location: [facility] Diagnostic Imaging Received: 02/03/2017 0915 Pathologist: Logan Pedroza MD Specimen: Renal, Left KIDNEY, NEEDLECORE BIOPSIES:- FOCAL GLOBAL AND NODULAR DIABETIC GLOMERULOSCLEROSIS WITH KIMMELSTIEL-GLENN NODULES, CLASS III, SEE COMMENT.- INTERSTITIAL FIBROSIS [...] diabetic nephropathy. J Am Soc Nephrol 21:556-563, 2009.50708, 51110 x3, 64819, 49757 x7, 00235Tbbuzbnzjxt, DM and serum creatinine 1.3 to 1.4Left kidneyThe specimen is received in saline and consists of two white-irvin tissue cores each measuring 1.5 cm in length and 0.1 cm indiameter. One of the tissue cores is bisected and submitted into glutaraldehyde and PBS solution respectively. The other tissue core is submitted into formalin. MG/Oscar, LEFT, BIOPSY FOR INTRAOPERATIVE GROSS ASSESSMENT: - ADEQUATE GLOMERULI IDENTIFIED WITHIN TWO TISSUE CORESLIGHT MICROSCOPY: Sections show single core of cortical tissue. Glomeruli: Approximately 18 glomeruli are examined of which 2 glomeruli are globally sclerotic/obsolescent. The remaining non-globally sclerotic glomeruli are enlarged and have nodular mesangial expansion by PAS- and silver-positive matrix with normal to mild segmental hypercellularity. Focal Kimmelstiel Glnen nodules are seen. No endocapillary hypercellularity, crescents [...] or vascular staining. Fibrinogen: diffuse, glomerular and tubulointerstitial,weak.Suffern: negative glomeruli; rare small tubular casts are [...] segmentally effaced. Tubular basement membranes are thickened.POCT-GLUCOSE [id number] 09:15:00 Test Item Value Reference Range Interpretation Comments POC-GLUCOSE METER 140 mg/dL 70-110 H TESTED AT [address] ([facility]) (test code [facility] [place] = 1538) [address] PT/[id number] 07:43:00 Test Item Value Reference Range Interpretation Comments PROTIME ([facility]) (test code = 10.2 seconds 9.3-12.0 759) INR ([facility]) (test code = 370) 1.0 <=5.9 PARTIAL [...] L 0.00-0.20 (test code = 417) POCT-GLUCOSE [id number] 07:26:00 Test Item Value Reference Range Interpretation Comments POC-GLUCOSE METER 136 mg/dL 70-110 H TESTED AT [facility] ([facility] (test code [facility] [place] = 1538) [address]"
[2021-08-17] MEDS ORDERED: ONDANSETRON 4 MG/2 ML VIAL ONE (22:19)
[2021-08-17] MEDS ORDERED: MORPHINE 4 MG/ML SYR ONE (22:19)
[2021-08-17 22:32] LABS: Protime INR 0.97
[2021-08-17 22:33] LABS: Absolute Lymphocytes (CBC) 0.9 K/uL (0.7-4.9); Basophils % 1.2 % (0-1.3); Hematocrit 26.7 % (39.6-49.0); Lymphocytes % 19.3 % (15.3-44.8); MPV 7.6 fL (7.6-11.3); RBC Red Blood Cell Count 2.93 M/uL (4.33-5.43)
[2021-08-17 22:46] LABS: ALT/SGPT 72 U/L (12-78); AST/SGOT 41 U/L (15-37); Albumin 3.7 g/dL (3.4-5.0); Alkaline Phosphatase 163 U/L (45-117); BUN Blood Urea Nitrogen 70 mg/dL (7-18); Bicarbonate 21 mmol/L (21-32); Bilirubin Direct < 0.1 mg/dL (0-0.2); Bilirubin Total 0.3 mg/dL (0.2-1.0); Glucose Level 193 mg/dL (74-106); Magnesium 2.3 mg/dL (1.8-2.4); NT PRO-BNP 1133 pg/mL (<125); Potassium 4.7 mmol/L (3.5-5.1); Protein, Total 7.4 g/dL (6.4-8.2); Sodium Level 132 mmol/L (136-145); Troponin (Emerg Dept Use Only) < 0.02 ng/mL (0.0-0.045)
[2021-08-17 22:58] LABS: Urine Blood Trace-intact (Negative); Urine Glucose Negative (Negative); Urine Protein Negative (Negative); Urine pH 5.5 (5.0-7.0)
[2021-08-18] MEDS ORDERED: ASPIRIN 81 MG CHEWABLE TABLET ONE (02:17)
--- NOTE | 2021-08-18 02:17 | EDPHYS ---
Physician Documentation [facility] Name: Ivan Parra Age: 61 yrs Sex: Male : 1960 Arrival Date: 08/17/2021 Time: 21:42 Bed 4 Private MD: ED Physician Sundeep Gonzalez HPI: 08/17 22:00 This 61 yrs old Male presents to ER via Ambulatory with complaints of Chest mh7 Pain > 30 y/o, High Blood Pressure. 22:00 The patient or guardian reports chest pain that is located primarily in the substernal mh7 area. Onset: today, at 14:00. The pain does not radiate. 22:00 Associated signs and symptoms: Pertinent positives: headache, Pertinent negatives: mh7 abdominal pain, cough, diaphoresis, dizziness, lower extremity pain, lower extremity swelling, lightheadedness, nausea, near syncope, palpitations, recent travel, shortness of breath, syncope, vomiting. 22:00 The chest pain is described as aching. Duration: The patient or guardian reports mh7 multiple episodes, that are intermittent, that wax and wane, with no pattern. Modifying factors: The symptoms are alleviated by nothing. the symptoms are aggravated by nothing. Severity of pain: At its worst the pain was moderate today, in the emergency department the pain is unchanged. The patient has been recently seen at the [facility] Emergency Department, last month. Historical: - Allergies: 22:01 No Known Allergies; as6 - Home Meds: 22:01 amlodipine 10 mg tab 1 tab once daily [Active]; aspirin 81 mg Oral chew 1 tab once as6 daily [Active]; febuxostat 40 mg Oral tab 1 tab once daily [Active]; ferrous sulfate 325 mg (65 mg iron) Oral tab 1 tab once daily [Active]; icosapent ethyl 1 gram Oral cap 2 caps 2 times per day [Active]; Jentadueto XR 2.5-1,000 mg Oral TBph 1 tab once daily [Active]; levocetirizine 5 mg Oral tab 1 tab once daily [Active]; cholecalciferol (vitamin D3) Oral daily [Active]; lisinopril 10 mg Oral tab 1 tab once daily [Active]; rosuvastatin 40 mg Oral cpSP 1 cap once daily [Active]; isosorbide mononitrate 30 mg Oral Tb24 1 tab once daily [Active]; - PMHx: 22:01 Congestive heart failure; diabetes mellitus; Hypercholesterolemia; Hypertensive as6 disorder; kidney disease; Myocardial infarction; - PSHx: 22:01 kidney biopsy; Stented artery; as6 - Immunization history:: Adult Immunizations up to date, Client reports receiving the 2nd dose of the Covid vaccine, Last tetanus immunization: < 5 years ago Pneumococcal vaccine is up to date, Flu vaccine is up to date. - Social history:: Smoking status: Patient denies any tobacco usage or history of. ROS: 22:00 Constitutional: Negative for fever, chills, and weight loss, Eyes: Negative for injury, mh7 pain, redness, and discharge, ENT: Negative for injury, pain, and discharge, Neck: Negative for injury, pain, and swelling, Respiratory: Negative for shortness of breath, cough, wheezing, and pleuritic chest pain, Abdomen/GI: Negative for abdominal pain, nausea, vomiting, diarrhea, and constipation, Back: Negative for injury and pain, : Negative for injury, bleeding, discharge, and swelling, MS/Extremity: Negative for injury and deformity, Skin: Negative for injury, rash, and discoloration, Psych: Negative for depression, anxiety, suicide ideation, homicidal ideation, and hallucinations, Allergy/Immunology: Negative for hives, rash, and allergies, Endocrine: Negative for neck swelling, polydipsia, polyuria, polyphagia, and marked weight changes, Hematologic/Lymphatic: Negative for swollen nodes, abnormal bleeding, and unusual bruising. Exam: 22:00 Constitutional: This is a well developed, well nourished patient who is awake, alert, mh7 and in no acute distress. Head/Face: Normocephalic, atraumatic. Eyes: Pupils equal round and reactive to light, extra-ocular motions intact. Lids and lashes normal. Conjunctiva and sclera are non-icteric and not injected. Cornea within normal limits. Periorbital areas with no swelling, redness, or edema. ENT: Nares patent. No nasal discharge, no septal abnormalities noted. Tympanic membranes are normal and external auditory canals are clear. Oropharynx with no redness, swelling, or masses, exudates, or evidence of obstruction, uvula midline. Mucous membranes moist. Neck: Trachea midline, no thyromegaly or masses palpated, and no cervical lymphadenopathy. Supple, full range of motion without nuchal rigidity, or vertebral point tenderness. No Meningismus. Chest/axilla: Normal chest wall appearance and motion. Nontender with no deformity. No lesions are appreciated. Cardiovascular: Regular rate and rhythm with a normal S1 and S2. No gallops, murmurs, or rubs. Normal PMI, no JVD. No pulse deficits. Respiratory: Lungs have equal breath sounds bilaterally, clear to auscultation and percussion. No rales, rhonchi or wheezes noted. No increased work of breathing, no retractions or nasal flaring. Abdomen/GI: Soft, non-tender, with normal bowel sounds. No distension or tympany. No guarding or rebound. No evidence of tenderness throughout. Back: No spinal tenderness. No costovertebral tenderness. Full range of motion. Skin: Warm, dry with normal turgor. Normal color with no rashes, no lesions, and no evidence of cellulitis. MS/ Extremity: Pulses equal, no cyanosis. Neurovascular intact. Full, normal range of motion. Neuro: Awake and alert, GCS 15, oriented to person, place, time, and situation. Cranial nerves II-XII grossly intact. Motor strength 5/5 in all extremities. Sensory grossly intact. Cerebellar exam normal. Normal gait. Psych: Awake, alert, with orientation to person, place and time. Behavior, mood, and affect are within normal limits. Vital Signs: 21:58 BP 187 / 90; Pulse 93; Resp 17 S; Temp 98.3(TE); Pulse Ox 100% on R/A; Weight 79.38 kg as6 (R); Height 5 ft. 8 in. (172.72 cm) (R); Pain 7/10; 22:27 BP 168 / 80; Pulse 91; Resp 16; Pulse Ox 100% on R/A; tw5 23:07 BP 149 / 74; Pulse 88; Resp 14; Pulse Ox 100% on R/A; Pain 1/10; tw5 12/06 00:03 BP 147 / 79; Pulse 80; Resp 15 S; Pulse Ox 100% on R/A; as6 01:18 BP 135 / 70; Pulse 79; Resp 14; Pulse Ox 100% on R/A; Pain 09/22; tw5 02:20 BP 141 / 75; Pulse 93; Resp 20; Pulse Ox 100% on R/A; Pain 09/22; tw5 08/17 21:58 Body Mass Index 26.61 (79.38 kg, 172.72 cm) as6 MDM: 02:11 Differential diagnosis: abnormal EKG, acute myocardial infarction, acute pericarditis, mh7 anxiety, coronary artery disease chest wall pain, congestive heart failure costochondritis, esophagitis, gastritis, gastroesophageal reflux disease (GERD). 02:12 Differential diagnosis: pericarditis, stable angina, unstable angina. HEART Score: mh7 History: Slightly Suspicious (0), ECG: Non specific repolarization disturbance / LBTB / PM (1), Age: > 45 and < 65 years (1), Risk Factors: > or = 3 Risk factors for atherosclerotic disease (2), [Hypercholesterolemia] [Hypertension] [DM] Troponin: < or = 1 x Normal Limit (0), Total Score = 4. Data reviewed: vital signs, nurses notes, old medical records, lab test result(s), cardiac enzymes, CBC, electrolytes, urinalysis, EKG, radiologic studies, plain films. Data interpreted: Pulse oximetry: on room air is 100 %. Interpretation: normal. Counseling: I had a detailed discussion with the patient and/or guardian regarding: the historical points, exam findings, and any diagnostic results supporting the discharge/admit diagnosis, lab results, radiology results, the need for further work-up and treatment in the hospital. Response to treatment: the patient's symptoms have resolved after treatment, the patient's blood pressure is in an acceptable range, mental status has returned to baseline, the patient no longer shows bradycardia, the patient is not short of breath, the patient is not tachycardic, the patient's pain is gone, the patient's temperature has normalized. Refusal of service: The patient/guardian displays adequate decision making capability and despite a detailed discussion of alternatives, benefits, risks, and consequences refuses: Admission to the hospital for further work-up and treatment. 02:16 Patient medically screened. [facility] 08/17 21:54 Order name: Basic Metabolic Panel; Complete Time: 22:51 5 08/17 21:54 Order name: CBC with Diff; Complete Time: 22:51 5 08/17 21:54 Order name: LFT's; Complete Time: 22:51 tw5 08/17 21:54 Order name: Magnesium; Complete Time: 22:51 tw5 08/17 21:54 Order name: NT PRO-BNP; Complete Time: 22:51 tw5 08/17 21:54 Order name: PT-INR; Complete Time: 22:51 tw5 08/17 21:54 Order name: Troponin (emerg Dept Use Only); Complete Time: 22:51 tw 08/17 22:05 Order name: Chest Single View XRAY [facility] 08/17 22:58 Order name: Urine Dipstick-Ancillary [facility] 08/18 01:09 Order name: Troponin (emerg Dept Use Only) [facility] 08/18 01:10 Order name: Troponin (Emerg Dept Use Only); Complete Time: 02:09 [facility] 08/17 21:54 Order name: EKG; Complete Time: 21:56 tw 08/17 21:54 Order name: Cardiac monitoring; Complete Time: 22:17 tw 08/17 21:54 Order name: EKG - Nurse/Tech; Complete Time: 22:17 tw 08/17 21:54 Order name: IV Saline Lock; Complete Time: 22:17 tw 08/17 21:54 Order name: Labs collected and sent; Complete Time: 22:18 tw 08/17 21:54 Order name: O2 Per Protocol; Complete Time: 22:18 tw5 08/17 21:54 Order name: O2 Sat Monitoring; Complete Time: 22:18 [facility] 08/17 22:14 Order name: Urine Dipstick-Ancillary (obtain specimen); Complete Time: 22:58 [facility] Administered Medications: 08/17 22:23 Drug: Zofran (Ondansetron) 4 mg Route: IVP; Site: right antecubital; tw5 23:08 Follow up: Response: No adverse reaction 22:24 Drug: morphine 4 mg Route: IVP; Site: right antecubital; tw5 23:08 Follow up: Response: No adverse reaction; RASS: Alert and Calm (0) tw5 08/18 02:20 Drug: Aspirin Chewable Tablet 324 mg Route: PO; tw5 02:31 Follow up: Response: No adverse reaction 5 Disposition Summary: 08/18/21 02:16 Left Against Medical Advice Location: Home [facility] Problem: an acute exacerbation [facility] Symptoms: have improved [facility] Condition: Stable [facility] Diagnosis - Chest pain, unspecified mh7 - Chronic kidney disease, unspecified mh7 Followup: [facility] - With: Private Physician - When: 1 - 2 days - Reason: Worsening of condition, Recheck today's complaints, Continuance of care, Re-evaluation by your physician Followup: [facility] - With: Harpal Jimenez MD - When: 1 - 2 days - Reason: Worsening of condition, Recheck today's complaints, Continuance of care, Re-evaluation by your physician Discharge Instructions: - Discharge Summary Sheet 7 - Nonspecific Chest Pain, Adult, [id number] 7 - Chronic Kidney Disease, Adult, [id number] 7 Signatures: Dispatcher [employer] Sundeep Tineo MD MD 7 Anne Everett 5 Jerome De La O, RN RN as6
--- NOTE | 2021-08-18 02:17 | ER ---
Nurse's Notes [facility] Name: Ivan Parra Age: 61 yrs Sex: Male : 1960 Arrival Date: 08/17/2021 Time: 21:42 Bed 4 Private MD: Diagnosis: Chest pain, unspecified;Chronic kidney disease, unspecified Presentation: 08/17 21:58 Chief complaint: Patient states: sternal chest pain that started today, does not as6 radiate, pt also c/o headache. Coronavirus screen: At this time, the client does not indicate any symptoms associated with coronavirus-19. Ebola Screen: No symptoms or risks identified at this time. Initial Sepsis Screen: Does the patient meet any 2 criteria? No. Patient's initial sepsis screen is negative. Does the patient have a suspected source of infection? No. Patient's initial sepsis screen is negative. Risk Assessment: Do you want to hurt yourself or someone else? Patient reports no desire to harm self or others. Onset of symptoms was August 17, 2021. 21:58 Method Of Arrival: Ambulatory as6 21:58 Acuity: KERWIN 3 as6 Historical: - Allergies: 22:01 No Known Allergies; as6 - Home Meds: 22:01 amlodipine 10 mg tab 1 tab once daily [Active]; aspirin 81 mg Oral chew 1 tab once as6 daily [Active]; febuxostat 40 mg Oral tab 1 tab once daily [Active]; ferrous sulfate 325 mg (65 mg iron) Oral tab 1 tab once daily [Active]; icosapent ethyl 1 gram Oral cap 2 caps 2 times per day [Active]; Jentadueto XR 2.5-1,000 mg Oral TBph 1 tab once daily [Active]; levocetirizine 5 mg Oral tab 1 tab once daily [Active]; cholecalciferol (vitamin D3) Oral daily [Active]; lisinopril 10 mg Oral tab 1 tab once daily [Active]; rosuvastatin 40 mg Oral cpSP 1 cap once daily [Active]; isosorbide mononitrate 30 mg Oral Tb24 1 tab once daily [Active]; - PMHx: 22:01 Congestive heart failure; diabetes mellitus; Hypercholesterolemia; Hypertensive as6 disorder; kidney disease; Myocardial infarction; - PSHx: 22:01 kidney biopsy; Stented artery; as6 - Immunization history:: Adult Immunizations up to date, Client reports receiving the 2nd dose of the Covid vaccine, Last tetanus immunization: < 5 years ago Pneumococcal vaccine is up to date, Flu vaccine is up to date. - Social history:: Smoking status: Patient denies any tobacco usage or history of. Screenin:12 Abuse screen: Denies threats or abuse. Nutritional screening: No deficits noted. as6 Tuberculosis screening: No symptoms or risk factors identified. Fall Risk None identified. Assessment: 22:10 General: Appears in no apparent distress. uncomfortable, Behavior is calm, cooperative. as6 Pain: Complains of pain in mid-sternal area Pain does not radiate. Pain began today. Neuro: Level of Consciousness is awake, alert, obeys commands, Oriented to person, place, time, situation. Neuro: Reports headache. Cardiovascular: Reports chest pain, Denies shortness of breath, Capillary refill < 3 seconds Patient's skin is warm and dry. Respiratory: Airway is patent Trachea midline Respiratory effort is even, unlabored, Respiratory pattern is regular, symmetrical. Derm: Skin is intact, is healthy with good turgor. 22:27 Pain: Pain currently is 6 out of 10 on a pain scale. tw5 22:49 Reassessment: Patient and/or family updated on plan of care and expected duration. Pain as6 level reassessed. Patient is alert, oriented x 3, equal unlabored respirations, skin warm/dry/pink. Patient states feeling better. Patient states symptoms have improved. 23:07 Reassessment: Patient states feeling better. Patient states symptoms have improved. tw5 Pain: Pain currently is 1 out of 10 on a pain scale. 08/18 01:18 Reassessment: Patient states feeling better. Patient states symptoms have improved. tw5 02:20 Reassessment: Patient states feeling better. Patient states symptoms have improved. tw5 Vital Signs: 08/17 21:58 BP 187 / 90; Pulse 93; Resp 17 S; Temp 98.3(TE); Pulse Ox 100% on R/A; Weight 79.38 kg as6 (R); Height 5 ft. 8 in. (172.72 cm) (R); Pain 7/10; 22:27 BP 168 / 80; Pulse 91; Resp 16; Pulse Ox 100% on R/A; tw5 23:07 BP 149 / 74; Pulse 88; Resp 14; Pulse Ox 100% on R/A; Pain 1/10; tw5 1206 00:03 BP 147 / 79; Pulse 80; Resp 15 S; Pulse Ox 100% on R/A; as6 01:18 BP 135 / 70; Pulse 79; Resp 14; Pulse Ox 100% on R/A; Pain 1/10; tw5 02:20 BP 141 / 75; Pulse 93; Resp 20; Pulse Ox 100% on R/A; Pain 1/10; tw5 1205 21:58 Body Mass Index 26.61 (79.38 kg, 172.72 cm) as6 ED Course: 08/17 21:42 Patient arrived in ED. 21:54 Anne Everett is Primary Nurse. tw5 21:54 Sundeep Gonzalez MD is Attending Physician. 7 22:01 Triage completed. as6 22:04 Arm band placed on. as6 22:10 Inserted saline lock: 18 gauge in right antecubital area, using aseptic technique. as6 Blood collected. 22:12 Placed in gown. Bed in low position. Call light in reach. Side rails up X2. Adult w/ as6 patient. alarm security or surveillance monitor on. Pulse ox on. NIBP on. 22:18 Basic Metabolic Panel Sent. tw5 22:19 CBC with Diff Sent. tw5 22:19 LFT's Sent. tw5 22:19 Magnesium Sent. tw5 22:19 NT PRO-BNP Sent. tw5 22:19 PT-INR Sent. tw5 22:19 Troponin (emerg Dept Use Only) Sent. tw 22:27 Door closed. Noise minimized. Moved to private room. Verbal reassurance given. tw5 22:27 Patient maintains SpO2 saturation greater than 95% on room air. tw5 23:08 Chest Single View XRAY In Process Unspecified. EDMS 23:08 Urine Dipstick-Ancillary Sent. tw5 08/18 01:18 Troponin (Emerg Dept Use Only) Sent. tw5 01:18 Troponin (emerg Dept Use Only) Sent. tw5 02:15 Harpal Jimenez MD is Referral Physician. 7 02:30 No provider procedures requiring assistance completed. IV discontinued, intact, tw5 bleeding controlled, No redness/swelling at site. Pressure dressing applied. Administered Medications: 08/17 22:23 Drug: Zofran (Ondansetron) 4 mg Route: IVP; Site: right antecubital; 23:08 Follow up: Response: No adverse reaction 22:24 Drug: morphine 4 mg Route: IVP; Site: right antecubital; tw5 23:08 Follow up: Response: No adverse reaction; RASS: Alert and Calm (0) 08/18 02:20 Drug: Aspirin Chewable Tablet 324 mg Route: PO; 02:31 Follow up: Response: No adverse reaction Outcome: 02:30 Discharged to home ambulatory, with family. 02:30 Condition: good 02:30 Discharge instructions given to patient, family, Instructed on discharge instructions, follow up and referral plans. 02:31 Patient left the ED. Signatures: Dispatcher [employer] Sundeep Tineo MD MD [facility] Dori Coy Tiffany tw5 Jerome De La O RN RN as6
[2021-08-18 02:38] VITALS: TEMP 98.3; O2SAT 100
[2021-08-18 02:45] VITALS: BP 141/75
--- NOTE | 2021-08-18 09:02 | RAD REPORT ---
EXAM DESCRIPTION: RAD - Chest Single View - 08/17/2021 11:08 pm CLINICAL HISTORY: CHEST PAIN Chest pain. COMPARISON: Chest Single View dated 08/13/2021; Chest Single View dated 07/15/2021 FINDINGS: Portable technique limits examination quality. Mild linear atelectasis is seen in the left lung base laterally. The lungs are otherwise clear. The h eart is normal in size. No displaced fractures. IMPRESSION: No acute intrathoracic process suspected.
== END 2021-08-18 02:31 | disposition left against medical advice (07) ==
LOC: ER 21:41
DX: R07.9 Chest pain, unspecified (principal); E11.22 Type 2 diabetes mellitus with diabetic chronic kidney disease; I13.10 Hypertensive heart and chronic kidney disease without heart failure, with stage 1 through stage 4 chronic kidney disease, or unspecified chronic kidney disease; N18.9 Chronic kidney disease, unspecified
CPT/HCPCS: 93005; 85025; 80048; 36415; 83735; 85610; 80076; 81003; 84484 ×2; 83880; 71045; 96375; 96374; 99285; J2405

== ENCOUNTER 2021-08-22 09:29 | Observation (INO) | payer BC ==
--- OUTSIDE RECORDS SUMMARY | 2021-08-22 09:35 | XMS REPORT | Continuity of Care Document ---
:1960 Author Organization [facility] t Address [facility] [place] [address] Care Team Providers Name Role Phone [place] Primary Care Physician TED Attending Clinician Unavailable ADITYA Attending Clinician [...] Number Effective Date Expiration Date S ource [place] - [id number] 2021 00:00:00 OUT OF STATE BCBS OS [id number] 2021 00:00:00 POS/PPO/EPO Problems Condition Condition Condition Status Onset Resolution Last Treating Co mments Source Name Details Category Date Date Treatment Clinician Date Hyponatrem Hyponatrem Disease Active 2020-09 U nivers ia ia 0-07 ity of syndrome syndrome 00:00: [place] [address] Medical [place] Allergies, Adverse Reactions, Alerts Allergy Allergy Status Severity Reaction(s) Onset Inactive Treating Comm ents Source Name Type Date Date Clinician NO KNOWN Allergy Active [facility] ALLERGIE S NO KNOWN Drug Active Univers ALLERGIE Class ity of S [facility] Social History Social Habit Start Date Stop Date Quantity Comments Source Exposure to Not sure University SARS-CoV-2 [facility] (event) Branch Tobacco use and 2021-06-19 2021-06-19 Never used Universit y of exposure 00:00:00 00:00:00 [facility] Alcohol intake 2021-06-19 2021-06-19 Ex-drinker [facility] 00:00:00 00:00:00 (finding) [facility] Sex Ass[birth year] At [birth year] Universit y of 00:00:00 00:00:00 [facility] Smoking Status Start Date Stop Date Source Never smoker [facility] Medications Ordered Filled Start Stop Current Ordering Indication Dosage Frequency Signature Comments Components Source Medication Medication Date Date Medication? Clinician (SIG) Name Name amLODIPine 2020-09 Yes [id number] 5mg Take 1 U nivers 5 mg tablet 0-10 tablet by ity of 00:00: mouth [place] 00 daily. Medical Branch cholecalcif 2020-09 Yes [id number] 2000U Take 2 Univers savanah, 0-10 tablets by ity of vitamin D3, 00:00: mouth [place] 25 mcg 00 daily. Medical (1,000 Branch unit) tablet lisinopriL 2020-09 Yes [id number] 5mg Take 1 U nivers 5 mg tablet 0-10 tablet by ity of 00:00: mouth [place] 00 daily. Medical Branch amLODIPine 2020-09 Yes [id number] 5mg Take 1 U nivers 5 mg tablet 0-10 tablet by ity of 00:00: mouth [place] 00 daily. Medical Branch cholecalcif 2020-09 Yes [id number] 2000U Take 2 Univers savanah, 0-10 tablets by ity of vitamin D3, 00:00: mouth [place] 25 mcg 00 daily. Medical (1,000 Branch unit) tablet lisinopriL 2020-09 Yes [id number] 5mg Take 1 U nivers 5 mg tablet 0-10 tablet by ity of 00:00: mouth [place] 00 daily. Medical Branch febuxostat 2020-09 Yes [id number] 40mg 40 mg, U nivers (ULORIC) 0-09 Oral, ity of tablet 40 14:00: DAILY, [place] mg 00 First dose Medical on Sat Branch 06/21/21 at 0900, Until Discontinu ed, Routine lisinopriL 2020-09 Yes [id number] 5mg 5 mg, Un chani (PRINIVIL,Z 0-09 [...] by mouth ity of tablet 11:52: daily. [place] [address] Medical Branch levocetiriz 2020-09 Yes 5mg Take 5 mg U nivers ine 5 mg 0-09 by mouth ity of tablet 11:52: daily. [address] Branch rosuvastati 2020-09 Yes 40mg Take [...] by mouth ity of tablet 11:52: daily. [address] Branch levocetiriz 2020-09 Yes 5mg Take 5 mg U nivers ine 5 mg 0-09 by mouth ity of tablet 11:52: daily. [address] rosuvastati 2020-09 Yes 40mg Take 40 mg Univers n 40 mg 0-09 by mouth ity of tablet 11:52: every [place] 04 evening. Medical With Branch dinner linagliptin 2020-09 Yes 1{tbl} Take 1 Un chani -metformin 0-09 tablet by ity of (JENTADUETO 11:52: mouth 2 Naresh as ) 2.5-500 04 (two) Medical mg Tab times [place] daily. icosapent 2020-09 Yes 1{capsu Take 1 [...] Take 40 mg Univers 40 mg 0-09 10-09 by mouth 2 ity of tablet 09:27: 00:00 (two) [place] 02 :00 times Medical daily. Branch hydrALAZINE 2020-09- No 50mg Take 50 mg Univers 50 mg 0-09 10-09 by mouth 3 ity of tablet 09:27: 00:00 (three) [place] 02 :00 times Medical daily. Branch furosemide 2020-09- No 20mg Take 20 mg Univers 20 mg 0-09 10-09 by mouth ity of tablet 09:27: 00:00 every [place] 02 :00 morning Medical and Branch evening. 0800 am and 1400 febuxostat 2020-09 Yes [id number] 40mg Take 1 U nivers 40 mg 0-09 tablet by ity of tablet 00:00: mouth [place] 00 daily. Medical Branch febuxostat 2020-09 Yes [id number] 40mg Take 1 U nivers 40 mg 0-09 tablet by ity of tablet 00:00: mouth [place] 00 daily. Medical Branch NaCl 0.9% 2020-09 Yes [id number] IV Unive rs (NS) IV 0-08 Infusion, ity of infusion 19:15: at 100 [place] 00 mL/hr, Medical CONTINUOUS Branch , Starting on Wed06/20/21 at 1415, Until Discontinu ed, STAT amLODIPine 2020-09 Yes [id number] 5mg 5 mg, Un chani (NORVASC) 0-08 [...] Discontinu ed, Routine NaCl 0.9% 2020-09- No [id number] IV Univ ers (NS) IV 0-08 10-08 Infusion, ity of infusion 13:30: 19:02 at 75 [place] 00 :45 mL/hr, Medical CONTINUOUS Branch , Starting on Wed06/20/21 at 0830, Until Wed06/20/21 at 1402, STAT heparin 2020-09 Yes 5000U 5,000 Univers (porcine) 0-08 Units, ity of injection 11:00: [place]cut[place]o [place] 5,000 Units 00 us, Q8H, [facility] First dose Branch on Wed06/20/21 at 0600, Until Discontinu ed, Routine rosuvastati 2020-09 Yes [id number] 40mg 40 mg, Univers n (CRESTOR) 0-08 Oral, QHS, it y of tablet 40 02:00: First dose [place] mg 00 on [facility] 06/19/21 at Branch 2100, Until Discontinu ed, Routine ferrous 2020-09 Yes [id number] 325mg 325 mg, Un chani sulfate 0-08 Oral, BID, ity of tablet 325 01:00: First dose [place] mg 00 on [facility] 06/19/21 at Branch 2000, Until Discontinu ed, Routine hydrALAZINE 2020-09- No [id number] 50mg 50 mg, Univers (APRESOLINE 0-08 10-08 Oral, BID, i ty of ) tablet 50 01:00: 02:31 1 dose, [place] mg 00 :00 First dose Medical (after Branch last modificati on) on [facility] 06/19/21 at 2000, Routine NaCl 0.9% 2020-09- No [id number] IV Univ ers (NS) IV 0-07 10-08 [...] 00 First dose Medical (HumaLOG) + on [facility] 06/19/21 at Testing 1200, Until Discontinu ed, Routine glucagon 2020-09 Yes 1mg 1 mg, Univers (GLUCAGEN 0-07 Intramuscu ity of DIAGNOSTIC 15:05: lar, PRN, [place] KIT) 01 Starting Medical injection 1 on [facility] Branch mg 06/19/21 at 1005, Until Discontinu ed, LOBO, Blood Glucose < or = 70 mg/dL and patient is unable to swallow or has mental changes. dextrose 50 2020-09 Yes 25mL 25 mL, Univ ers % in water 0-07 Slow IV ity of (D50W) 15:05: Push, PRN, [place] injection 01 Starting Medica l 25 mL on [facility] 06/19/21 at 1005, Until Discontinu ed, LOBO, Blood Glucose < or = 70 mg/dL and patient is unable to swallow or has mental status changes. cholecalcif 2020-09 Yes [id number] 2000U 2,000 Univers savanah 0-07 Units, ity of (vitamin 14:45: Oral, [place] D3) tablet 00 DAILY, Medical 2,000 Units First dose Br anch on [facility] 06/19/21 at 0945, Until Discontinu ed, Routine acetaminoph 2020-09 Yes 650mg 650 mg, Un chani en 0-07 Oral, ity of (TYLENOL) 14:18: Q6HPRN, [place] tablet 650 47 Starting Medic al mg on [facility] Branch 06/19/21 at 0918, Until Discontinu ed, Routine, Pain (scale 1-3) glimepiride 2020-09 No 4mg Take 4 mg Univers 4 mg tablet 06-19 by mouth ity of 12:08: 00:00 daily with [place] 53 :00 breakfast. Medical Branch bisoproloL- 2020-09 No 1{tbl} Take 1 U nivers hydrochloro 06-19 tablet by it y of thiazide 12:08: 00:00 mouth 2 [place] 10-6.25 mg 53 :00 (two) Medical per tablet times Branch daily. Immunizations Ordered Filled Immunization Date Status Comments [facility] e Immunization Name Name Pneumococcal 2021-06-21 Completed [place] o f Polysaccharide, 00:00:00 [place] Med ical PPSV23 (PNEUMOVAX) Branch Pneumococcal 2021-06-21 Completed [place] o f Polysaccharide, 00:00:00 [place] Med ical PPSV23 (PNEUMOVAX) Branch Influenza Virus 2020-07-14 Completed Universit y of Vaccine Quad IM 00:00:00 [place] Med ical Multi-dose 6+ MO Branch Influenza Virus 2020-07-14 Completed Universit y of Vaccine Quad IM 00:00:00 [place] Med ical Multi-dose 6+ MO Branch Vital Signs Vital Name Observation Time Observation Value Comments Source HEIGHT 2021-08-14 00:15:00 172.7 cm WEIGHT 2021-08-14 00:15:00 79.379 kg HEIGHT 2021-08-13 23:00:00 172.7 cm WEIGHT 2021-08-13 23:00:00 79.379 kg HEIGHT 2021-08-14 00:15:00 172.7 cm WEIGHT 2021-08-14 00:15:00 79.379 kg HEIGHT 2021-08-13 23:00:00 172.7 cm WEIGHT 2021-08-13 23:00:00 79.379 kg Heart rate 2021-06-21 14:00:00 88 /min [facility] Respiratory rate 2021-06-21 14:00:00 13 /min [facility] Oxygen saturation in 2021-06-21 14:00:00 98 /min [facility] Arterial blood by [facility] Pulse oximetry Branch Systolic blood 2021-06-21 13:02:00 151 mm[Hg] Univer sity [facility] Diastolic blood 2021-06-21 13:02:00 75 mm[Hg] [facility] Body temperature 2021-06-21 13:02:00 36.22 Yadira [facility] Body weight 2021-06-20 09:51:00 82.464 kg [facility] BMI 2021-06-20 09:51:00 27.64 kg/m2 [facility] Body height 2021-06-19 20:00:00 172.7 cm [facility] Procedures Procedure Date / Time Performing Clinician Source Performed POCT GLUCOSE (AUTOMATED) 2021-06-21 13:21:00 Magdaleno [facility] MAGNESIUM 2021-06-21 10:35:00 [place], [facility] OSMOLALITY URINE 2021-06-21 10:35:00 Del[place], [facility] RENAL PANEL 2021-06-21 10:35:[facility] 2021-06-21 10:35:00 [facility] ([id number]NA, K, CL, CO2) Medical [place] POTASSIUM, URINE RANDOM 2021-06-21 10:35:00 Delvis, [facility] SODIUM, URINE RANDOM 2021-06-21 10:35:00 Delvis [facility] ELECTROLYTES PANEL 2021-06-21 01:20:00 [facility] ([id number])(NA, K, CL, CO2) Medical [place] POCT GLUCOSE (AUTOMATED) 2021-06-21 01:14:00 Magdaleno [facility] POCT GLUCOSE (AUTOMATED) 2021-06-20 22:05:00 Magdaleno [facility] ELECTROLYTES PANEL 2021-06-20 17:24:[id number]NA, K, CL, CO2) Medical Branch OSMOLALITY URINE 2021-06-20 10:13:00 Delvis, [facility] POTASSIUM, URINE RANDOM 2021-06-20 10:13:00 Delvis, [facility] SODIUM, URINE RANDOM 2021-06-20 10:13:00 Delvis, [facility] MAGNESIUM 2021-06-20 10:12:00 Delvis [facility] VITAMIN B12, LEVEL 2021-06-20 10:12:00 Magdaleno Hughes [facility] FOLATE 2021-06-20 10:12:00 [facility] RENAL PANEL 2021-06-20 10:12:00 Delvis [facility] VITAMIN D, 25-OH 2021-06-20 10:12:00 Ted [facility] ELECTROLYTES PANEL 2021-06-20 03:25:00 Delvis, [facility] ([id number])(NA, K, CL, CO2) [facility] POCT GLUCOSE (AUTOMATED) 2021-06-20 02:30:00 Magdaleno [facility] POCT GLUCOSE (AUTOMATED) 2021-06-20 01:12:00 Magdaleno [facility] POCT GLUCOSE (AUTOMATED) 2021-06-19 22:34:00 Magdaleno [facility] ELECTROLYTES PANEL 2021-06-19 21:21:00 [facility] ([id number])(NA, K, CL, CO2) [facility] POCT GLUCOSE (AUTOMATED) 2021-06-19 16:58:00 Magdaleno [facility] POCT GLUCOSE (AUTOMATED) 2021-06-19 14:31:00 Magdaleno [facility] PHOSPHORUS 2021-06-19 14:17:00 Delvis [facility] CREATINE KINASE 2021-06-19 14:17:00 [facility] URIC ACID 2021-06-19 14:17:00 [place], [facility] MAGNESIUM 2021-06-19 14:17:00 Delvis [facility] FERRITIN SERUM 2021-06-19 14:17:00 Magdaleno Hughes [facility] OSMOLALITY, SERUM OR 2021-06-19 14:17:00 Delvis, [facility] PLASMA [facility] OSMOLALITY URINE 2021-06-19 14:17:00 Delvis [facility] TROPONIN I 2021-06-19 14:17:00 Delvis [facility] THYROID STIMULATING 2021-06-19 14:17:00 Magdaleno Hughes [facility] HORMONE [facility] COMP. METABOLIC PANEL 2021-06-19 14:17:00 [id number] Medical [place] IRON PANEL 2021-06-19 14:17:00 [facility] DIFF CONSULT 2021-06-19 14:17:00 Ted [facility] INTERPRETATION [facility] CBC WITH DIFF 2021-06-19 14:17:00 Delvis [facility] GLYCOSYLATED HEMOGLOBIN 2021-06-19 14:17:00 Magdaleno Hughes [facility] (A1C) [facility] URINALYSIS MICROSCOPIC 2021-06-19 14:17:00 Delvis regina [facility] RETICULOCYTES AUTOMATED 2021-06-19 14:17:00 Magdaleno Hughes [facility] N-TERMINAL PRO-BNP 2021-06-19 14:17:00 [facility] POTASSIUM, URINE RANDOM 2021-06-19 14:17:00 Delvis [facility] SODIUM, URINE RANDOM 2021-06-19 14:17:00 [facility] PROTEIN CREAT RATIO URINE 2021-06-19 14:17:[address] [facility] Branch COVID-19 (ID NOW RAPID 2021-06-19 14:17:[address] [facility] TESTING) Medical Branch LAB ONLY COVID 2021-06-19 14:17:00 [facility] [place] INTERPRETATION [facility] PATIENT FINANCIAL 2021-06-19 13:01:56 [facility] [place] [facility] NO SHOW OR MISSED 2021-06-19 13:01:37 Doctor Unassigned, [facility] APPOINTMENT POLICY [place] [facility] h ACKNOWLEDGEMENT NOTICE OF PRIVACY 2021-06-19 13:01:16 Doctor Unassigned, [facility] PRACTICES [place] [facility] CONSENT/REFUSAL FOR 2021-06-19 13:01:02 [facility], [facility] DIAGNOSIS AND TREATMENT [place] [facility] ASSIGNMENT OF BENEFITS 2021-06-19 13:00:44 [facility] [place] [facility] Encounters Start End Encounter Admission Attending Care Care Encounter Source Date/Time Date/Time Type Type Clinicians Facility Department ID 2021-07-15 Inpatient [facility] [id number] Univers 04:45:31 MAGDALENO david [facility] 2021-08-13 2021-08-15 Outpatient ER ADITYA [facility] Cardiology [id number] [facility] 22:46:00 14:50:00 MAHBOOB 2021-08-13 2021-08-13 Outpatient BCM BCM [id number] [facility] 00:00:00 23:59:00 Erich candelaria of Medicin e 2021-07-08 2021-07-08 Outpatient [facility] [id number] [place] 00:00:00 00:00:[address] 2021-06-23 2021-06-23 Transition Siva Cantu [id number] Univers 00:00:00 00:00:00 of Care Pablo Davis [id number] ity of [place] [id number] Lenard chaudhary [id number] [place] [id number] Branch 2021-06-19 2021-06-21 [facility] [id number] Univers 08:50:00 11:15:00 Encounter Magdaleno Sexton [id number] [facility] [id number] [facility] [id number] [facility] 080 Branch 2021-06-13 2021-06-13 Outpatient NAUTIYAL, [facility] [id number] [place] 00:00:00 00:00:00 KIRTAN [address] 2021-05-16 2021-05-16 Outpatient NAUTIYAL, [facility] [id number] [place] 00:00:00 00:00:00 KIRTAN [address] 2021-04-18 2021-04-18 Outpatient NAUTIYAL, [facility] [id number] [place] 00:00:00 00:00:00 KIRTAN [address] 2021-03-21 2021-03-21 Outpatient NAUTIYAL, [facility] [id number] [place] 00:00:00 00:00:00 KIRTAN [address] 2021-02-21 2021-02-21 Outpatient NAUTIYAL, [facility] [id number] [place] 00:00:00 00:00:00 KIRTAN [address] 2021-01-17 2021-01-17 Outpatient NAUTIYAL, [facility] [id number] [place] 00:00:00 00:00:00 KIRTAN [address] 2020-12-20 2020-12-20 Outpatient NAUTIYAL, [facility] [id number] [place] 00:00:00 00:00:00 KIRTAN [address] 2020-12-12 2020-12-12 Outpatient ROBBEN, [facility] [id number] [place] 00:00:00 00:00:00 ED 061 Me thodi 2020-11-21 2020-11-21 Outpatient [facility] [id number] [place] 00:00:00 00:00:[address] 2020-11-15 2020-11-15 Outpatient NAUTIYAL, [facility] [id number] [place] 00:00:00 00:00:00 KIRTAN [address] 2020-10-11 2020-10-11 Outpatient NAUTIYAL, [facility] [id number] [place] 00:00:00 00:00:00 KIRTAN [address] 2020-09-12 2020-09-12 Outpatient NAUTIYAL, [facility] [id number] [place] 00:00:00 00:00:00 KIRTAN [address] 2020-08-16 2020-08-16 Outpatient NAUTIYAL, [facility] [id number] [place] 00:00:00 00:00:00 KIRTAN [address] 2020-08-06 2020-08-06 Outpatient NAUTIYAL, [facility] [id number] [place] 00:00:00 00:00:00 KIRTAN [address] 2020-07-19 2020-07-19 Outpatient NAUTIYAL, [facility] [id number] [place] 00:00:00 00:00:00 KIRTAN [address] 2020-06-21 2020-06-21 Outpatient NAUTIYAL, [facility] [id number] [place] 00:00:00 00:00:00 KIRTAN [address] 2020-05-24 2020-05-24 Outpatient NAUTIYAL, [facility] [id number] [place] 00:00:00 00:00:00 KIRTAN [address] 2020-04-26 2020-04-26 Outpatient NAUTIYAL, [facility] [id number] [place] 00:00:00 00:00:00 KIRTAN [address] 2020-03-22 2020-03-22 Outpatient NAUTIYAL, [facility] [id number] [place] 00:00:00 00:00:00 KIRTAN [address] 2020-02-23 2020-02-23 Outpatient NAUTIYAL, [facility] [id number] [place] 00:00:00 00:00:00 KIRTAN [address] 2020-02-02 2020-02-02 Outpatient NAUTIYAL, [facility] [id number] [place] 00:00:00 00:00:00 KIRTAN [address] 2020-01-26 2020-01-26 Outpatient NAUTIYAL, [facility] [id number] [place] 00:00:00 00:00:00 KIRTAN [address] 2019-12-29 2019-12-29 Outpatient NAUTIYAL, [facility] [id number] [place] 00:00:00 00:00:00 KIRTAN [address] 2019-11-24 2019-11-24 Outpatient MIRA [facility] [id number] [place] 00:00:00 00:00:00 PEREZ [address] Results Test Description Test Time Test Comments Results Result Comments Source POCT-GLUCOSE METER 2021-08-15 11:33:36 Test Item Value Reference Range Interpretation Comme nts POC-GLUCOSE METER (BEAKER) 132 mg/dL 70-110 H : TESTED AT [facility] [address] [facility] (test code = 1538) [facility] X, [address]: Well Logging Captain Mud Analysis/Techni doyle ID = [id number] for Anne Gibson POCT-GLUCOSE [id number] 06:03:47 Test Item Value Reference Range Interpretation Comments POC-GLUCOSE METER 121 mg/dL 70-110 H : TESTED A T [facility] 6720 (BEAKER) (test code = [place], 1538) [address]: Well Logging Captain Mud Analysis/Techni doyle ID = [id number] for UG PEDRO DURAN BASIC METABOLIC [id number] 06:01:00 Test Item Value Reference Range Interpretation [...] S NOT APPLICABLE FOR DIALYSIS PATIEN TS. Well Logging Captain Mud Analysis ID - JEAN CARLOS GPOCT-GLUCOSE [id number] 21:05:06 Test Item Value Reference Range Interpretation Comments POC-GLUCOSE METER 115 mg/dL 70-110 H : TESTED A T [facility] 6720 (BEAKER) (test code = [facility], 1538) [id number]: Well Logging Captain Mud Analysis/Techni doyle ID = [id number] for PEDRO SCHWAB POCT-GLUCOSE [id number] 19:02:49 Test Item Value Reference Range Interpretation Comments POC-GLUCOSE METER 144 mg/dL 70-110 H : TESTED A T [facility] 6720 (BEAKER) (test code = [facility], 1538) [id number]: Well Logging Captain Mud Analysis/Techni doyle ID = [id number] for Belen Miner POCT-GLUCOSE [id number] 16:51:49 Test Item Value Reference Range Interpretation Comments POC-GLUCOSE METER 185 mg/dL 70-110 H : TESTED A T [facility] 6720 (BEAKER) (test code = [facility], 1538) 77373: Well Logging Captain Mud Analysis/Techni doyle ID = [id number] for Re Adriana jefferson MYOCARD IMAGING, MULTI, PHARM, [id number] 15:15:00Unlisted Reason for Exam - Click Yes and Enter Reason Below->No [facility] : 1960 Sex: MFINAL REPORT PROCEDURE: MYOCARDIAL PERFUSION SPECT IMAGING (Rest/Stress)CPT CODE: 64187 INDICATION: CAD risk, intermediate risk, Chest pain [...] MDReport Verified Date/Time: 08/14/2021 15:15:39 Reading Location: [address] Reading Room HEMOGLOBIN [id number] 10:49:00 Test Item Value Reference Range Interpretation Comments HEMOGLOBIN A1C (LIVE) (test code = 5.5 % 4.3-6.1 368) POCT-GLUCOSE [id number] 09:34:32 Test Item Value Reference Range Interpretation Comments POC-GLUCOSE METER 145 mg/dL 70-110 H : TESTED A T [facility] 6720 (LIVE) (test code = [place], 1538) [id number]: Well Logging Captain Mud Analysis/Techni doyle ID = [id number] for ROSSI FISCHER HIGH SENSITIVITY TROPONIN [id number] 05:11:36 Test Item Value Reference Range Interpretation Comments HIGH SENSITIVITY 26 pg/ml See_Comment [Automated message] TROPONIN I (test code = The system which [id number]) generated this result transmitted ref erence range: <=35. Th e reference range was not used to int erpret this result as normal/abnormal . Well Logging Captain Mud Analysis ID - GISELL Maya ROUGH AND TRUEING MACHINE OPERATOR STAT High Sensitivity Troponin-I results should be used in conjunction with other diagnostic information such as ECG, clinical observations and information, and patient symptoms to aid in the diagnosis of MA.LIPID [id number] 05:07:50 Test Item Value Reference Range Interpretation [...] Borderline 130-159 High 160-189 Very High >=190 Well Logging Captain Mud Analysis ID - GISELL MBASIC METABOLIC [id number] 05:07:49 Test Item Value Reference Range Interpretation [...] S NOT APPLICABLE FOR DIALYSIS PATIEN TS. Well Logging Captain Mud Analysis ID - GISELL [id number] 05:07:49 Test Item Value Reference Range Interpretation Comments MAGNESIUM (BEAKER) (test code = 2.2 mg/dL 1.6-2.6 627) Well Logging Captain Mud Analysis ID - GISELL MCBC W/PLT COUNT & AUTO [id number] 04:44:58 Test Item Value Reference Range Interpretation [...] PERCENT (BEAKER) (test code = 2801) PROTHROMBIN TIME/[id number] 00:46:16 Test Item Value Reference Range Interpretation Comments PROTIME (BEAKER) 14.4 seconds 11.9-14.2 H (test code = 759) INR (BEAKER) (test 1.14 See_Comment [Automat ed message] code = 370) The system [employer] generated this result transmitted ref erence range: <=5.90. The reference range was not used to int erpret this result as normal/abnormal . RECOMMENDED COUMADIN/WARFARIN INR THERAPY RANGESSTANDARD DOSE: 2.0 - 3.0 Includes: PROPHYLAXIS forvenous thrombosis, systemic embolization; TREATMENT for venous thrombosis and/or pulmonary embolus.HIGH RISK: Target INR is 2.5-3.5 for patients with mechanical heart valves.SARS-COV2/RT-PCR ([facility]) 2021-08-14 00:26:40 Test Item Value Reference Range Interpretation Comments SARS-COV2/RT-PCR Negative Negative The SARS-Co V-2 target (test code = nucleic acids a re not [id number]) detected in thi s specimen. Negative result [...] revoked sooner. Fact Sheet for Healthcare Providers: https://www.[employer]/Documents/Xpert%20Xpress%20SARS%20CoV-2/Fact%20Sheets/302-3802%20SARS-COV -2%20HEALTHCARE%20PROVIDERS%20FACT%20SHEET.pdf Fact Sheet for Healthcare Patients: https://www.[employer]/Documents/Xpert %20Xpress%20SARS%20CoV-2/Fact%20Sheets/302-3801%65GVNU-FDC-5%20PATIENT%20FACT%20 SHEET.pdfRAD, CHEST, 1 VIEW, NON [id number] 00:12:00Reason for exam:- >CPShould this be performed at the bedside?->Yes [facility] [facility] : 1960 Sex: MFINAL REPORT [...] MDReportVerified Date/Time: 08/14/2021 00:12:28 HIGH SENSITIVITY TROPONIN [id number] 23:42:44 Test Item Value Reference Range Interpretation Comments HIGH SENSITIVITY 38 pg/ml See_Comment H [Automated message] TROPONIN I (test code = The system which 5529728) generated this result transmitted ref erence range: <=35. Th e reference range was not used to int erpret this result as normal/abnormal . [employer] Captain Mud Analysis ID - BSThe ROUGH AND TRUEING MACHINE OPERATOR STAT High Sensitivity Troponin-I results should be used in conjunctionwith other diagnostic information such as ECG, clinical observations and information, and patient symptoms to aid in the diagnosis of MA.PT/[id number] 23:37:54 Test Item Value Reference Range Interpretation [...] for patients with mechanical heart valves.COMPREHENSIVE METABOLIC [id number] 23:36:03 Test Item Value Reference Range Interpretation [...] S NOT APPLICABLE FOR DIALYSIS PATIEN TS. [employer] Captain Mud Analysis ID - BSCBC W/PLT COUNT & AUTO [id number] 23:13:22 Test Item Value Reference Range Interpretation [...] Interpretation Comments POCT GLU (test code = 7033613488) 99 mg/dL 70-110 Lab Interpretation (test code = Normal 54629-8) [facility]16 Test Item Value Reference Range Interpretation Comments MAGNESIUM (test code = 4721553015) 2.3 mg/dL 1.7-2.4 Lab Interpretation (test code = Normal 81626-4) [facility] [id number] 12:40:15 Test Item Value Reference Range Interpretation Comments ALBUMIN (test code = 3.6 g/dL 3.5-5.0 2410719916) CALCIUM (test code = 8.9 mg/dL 8.6-10.6 9422741233) CO2 TOTAL (test code = 23 mmol/L 23-31 1193449192) CREATININE (test code = 1.36 mg/dL 0.60-1.25 H 0728568852) GLUCOSE (test code = 87 mg/dL 70-110 1640989507) K (test code = 4.2 mmol/L 3.5-5.0 2416303812) NA (test code = 135 mmol/L 135-145 7890434946) BUN (test code = 34 mg/dL 7-23 H 9485249464) PHOSPHORUS (test code = 3.9 mg/dL 2.5-5.0 2187776618) eGFR (test code = mL/min/1.73m2 2452954371) ALYSIA (test code = ALYSIA) Association of [...] tests). Lab Interpretation Abnormal (test code = 37015-8) [facility] (97149)(NA, K, CL, CO2) 2021-06-21 12:39:35 Test Item Value Reference Range Interpretation Comments NA (test code = 3298982147) 135 mmol/L 135-145 K (test code = 0835470899) 4.2 mmol/L 3.5-5.0 CL (test code = 2876549150) 107 mmol/L 98-108 CO2 TOTAL (test code = 2233353435) 23 mmol/L 23-31 AGAP (test code = 3805885301) 2-16 Lab Interpretation (test code = Normal 42542-9) [facility] (27413)(NA, K, CL, CO2) 2021-06-21 02:05:41 Test Item Value Reference Range Interpretation Comments NA (test code = 3207252773) 130 mmol/L 135-145 L K (test code = 2359609921) 4.2 mmol/L 3.5-5.0 CL (test code = 5047165183) 99 mmol/L 98-108 CO2 TOTAL (test code = 5164462705) 23 mmol/L 23-31 AGAP (test code = 2306747777) 2-16 Lab Interpretation (test code = Abnormal 36132-7) [facility] GLUCOSE (AUTOMATED)2021-06-21 01:32:17 Test Item Value Reference Range Interpretation Comments POCT GLU (test code = 8528883923) 163 mg/dL 70-110 H Lab Interpretation (test code = Abnormal 77511-4) [facility] GLUCOSE (AUTOMATED)2021-06-21 01:32:11 Test Item Value Reference Range Interpretation Comments POCT GLU (test code = 0373284491) 111 mg/dL 70-110 H Lab Interpretation (test code = Abnormal 33626-3) [facility] CenterDIFF CONSULT [id number] 19:50:07 ABSOLUTE LYMPHOPENIA. NORMOCYTIC NORMOCHROMIC ANEMIA. PLATELETS ARE UNREMARKABLE.[facility] CenterVITAMIN B12, [id number] 19:49:05 Test Item Value Reference Range Interpretation Comments VIT B12 (test code = 687 pg/mL 240-930 5849683339) ALYSIA (test code = ALYSIA) Biotin has been reported to cause a positive bias, interpret results relative to patient's use of biotin. Lab Interpretation (test Normal code = 33346-1) [facility] CenterVITAMIN D, [id number] 19:16:59 Test Item Value Reference Range Interpretation Comments VIT D 25OH (test code = 17 ng/mL 25-80 L 59934-9) ALYSIA (test code = ALYSIA) Deficiency: <20 ng/mLInsufficiency: 20-24 ng/mLOptimal: 25-80 ng/mL Lab Interpretation (test Abnormal code = 03778-6) [facility] CenterELECTROLYTES PANEL (66903)(NA, K, CL, CO2) 2021-06-20 18:30:32 Test Item Value Reference Range Interpretation Comments NA (test code = 4884995972) 127 mmol/L 135-145 L K (test code = 6701174789) 4.4 mmol/L 3.5-5.0 CL (test code = 7589277934) 97 mmol/L 98-108 L CO2 TOTAL (test code = 1032562013) 20 mmol/L 23-31 L AGAP (test code = 3235163950) 2-16 Lab Interpretation (test code = Abnormal 85942-1) [facility]PO[facility])2021-06-20 18:02:33 Test Item Value Reference Range Interpretation Comments POCT GLU (test code = 5648734370) 118 mg/dL 70-110 H Lab Interpretation (test code = Abnormal 50666-0) [facility] GLUCOSE (AUTOMATED)2021-06-20 18:02:33 Test Item Value Reference Range Interpretation Comments POCT GLU (test code = 6241773863) 181 mg/dL 70-110 H Lab Interpretation (test code = Abnormal 31167-7) [facility] CenterFOLATE2021-10-08 16:36:31 Test Item Value Reference Range Interpretation Comments FOLATE SER (test code = >20.0 3.0-20.0 H Biot in has been 8867703601) reported to cau se a positive bias, interpret resul ts relative to patient's use o f biotin. Lab Interpretation (test Abnormal code = 06989-6) [facility] CenterRENAL [id number] 12:37:06 Test Item Value Reference Range Interpretation Comments ALBUMIN (test code = 3.8 g/dL 3.5-5.0 9498346644) CALCIUM (test code = 8.7 mg/dL 8.6-10.6 4100403577) CO2 TOTAL (test code = 20 mmol/L 23-31 L 0219105961) CREATININE (test code = 1.64 mg/dL 0.60-1.25 H 8101327069) GLUCOSE (test code = 82 mg/dL 70-110 3983556616) K (test code = 4.1 mmol/L 3.5-5.0 9408543324) NA (test code = 126 mmol/L 135-145 L 9118970306) BUN (test code = 43 mg/dL 7-23 H 2636529257) PHOSPHORUS (test code = 4.2 mg/dL 2.5-5.0 4938933357) eGFR (test code = mL/min/1.73m2 1617093128) ALYSIA (test code = ALYSIA) Association of [...] tests). Lab Interpretation Abnormal (test code = 23478-3) [facility] CenterMAGNESIUM2021-10-08 12:37:06 Test Item Value Reference Range Interpretation Comments MAGNESIUM (test code = 2740052457) 2.3 mg/dL 1.7-2.4 Lab Interpretation (test code = Normal 93794-3) [facility] GLUCOSE (AUTOMATED)2021-06-20 12:01:50 Test Item Value Reference Range Interpretation Comments POCT GLU (test code = 6166857693) 114 mg/dL 70-110 H Lab Interpretation (test code = Abnormal 30317-8) [facility] GLUCOSE (AUTOMATED)2021-06-20 04:48:58 Test Item Value Reference Range Interpretation Comments POCT GLU (test code = 9857460648) 137 mg/dL 70-110 H Lab Interpretation (test code = Abnormal 93065-0) [facility] CenterELECTROTES PANEL (60747)(NA, K, CL, CO2) 2021-06-20 04:41:11 Test Item Value Reference Range Interpretation Comments NA (test code = 8590992223) 122 mmol/L 135-145 L K (test code = 3924592269) 4.0 mmol/L 3.5-5.0 CL (test code = 2635869132) 94 mmol/L 98-108 L CO2 TOTAL (test code = 3661047125) 20 mmol/L 23-31 L AGAP (test code = 1462410572) 2-16 Lab Interpretation (test code = Abnormal 53586-7) [facility] GLUCOSE (AUTOMATED)2021-06-20 02:04:20 Test Item Value Reference Range Interpretation Comments POCT GLU (test code = 6199248045) 166 mg/dL 70-110 H Lab Interpretation (test code = Abnormal 90740-8) [facility] CenterELECTROLYTES PANEL (52457)(NA, K, CL, CO2) 2021-06-19 22:21:27 Test Item Value Reference Range Interpretation Comments NA (test code = 6424292889) 120 mmol/L 135-145 L K (test code = 8655290484) 4.3 mmol/L 3.5-5.0 CL (test code = 2773466114) 90 mmol/L 98-108 L CO2 TOTAL (test code = 0587967677) 22 mmol/L 23-31 L AGAP (test code = 6682830959) 2-16 Lab Interpretation (test code = Abnormal 09218-0) [facility] CenterOSMOLALITY, SERUM OR [id number] 20:32:51 Test Item Value Reference Range Interpretation Comments OSMOLALITY (test code = See_Comment L [Au tomated message] 9404611056) The system [employer] generated this result transmitted ref erence range: 278 - 30 5 mOsm/kg. The reference range was not used to int erpret this result as normal/abnormal . Lab Interpretation (test Abnormal code = 28351-1) [facility] CenterRETICULOCYTES [id number] 18:52:41 Test Item Value Reference Range Interpretation Comments RETIC Count Automated 4.16 % 0.59-2.24 H (test code = 4116422241) RETIC Absolute Count See_Comment H [Autom ated message] (test code = 6156179417) The system which generated this result transmitted ref erence range: 0.0260 - 0.1170 10*6/?L. The reference range was not used to int erpret this result as normal/abnormal . IRF % (test code = 24.00 % 2.00-19.10 H 0902860339) RETIC-HE (test code = 35.8 pg 27.3-36.4 1454195078) Lab Interpretation (test Abnormal code = 65146-6) [facility] CenterFERRITIN [id number] 18:12:11 Test Item Value Reference Range Interpretation Comments FERRITIN (test code = 245.0 ng/mL 18.0-464.0 0539001342) ALYSIA (test code = ALYSIA) Biotin has been reported to cause a negative bias, interpret results relative to patient's use of biotin. Lab Interpretation (test Normal code = 20908-7) [facility] CenterTHYROID STIMULATING [id number] 18:07:51 Test Item Value Reference Range Interpretation Comments TSH (test code = See_Comment [Automated message] 9033187648) The system [employer] generated this result transmitted ref erence range: 0.45 - 4 .70 mIU/L. The refe rence range was not u sed to interpret this result as normal/abnor mal. Lab Interpretation (test Normal code = 27502-2) [facility] CenterIRON [id number] 17:46:47 Test Item Value Reference Range Interpretation Comments IRON (test code = 7437453328) 38 ug/dL 50-160 L TIBC (test code = 8991622987) 320 ug/dL 250-410 % FE SAT (test code = 2975909273) 12 % 20-50 L Lab Interpretation (test code = Abnormal 85528-2) [facility] CenterCREATINE [id number] 17:37:28 Test Item Value Reference Range Interpretation Comments CK (test code = 7461546125) 204 U/L 33-194 H Lab Interpretation (test code = Abnormal 31559-8) [facility] CenterGlycosylated Hemoglobin (A1C)2021-06-19 15:28:01 Test Item Value Reference Range Interpretation Comments HGB A1C (test code = 5.5 % 4.0-5.7 4548-4) ALYSIA (test code = ALYSIA) Reference RangesNormal: <5.7%Prediabetes: 5.7 - 6.4%Diabetes: > 6.5% Lab Interpretation (test Normal code = 72797-8) [facility] CenterTROPONIN [id number] 15:23:11 Test Item Value Reference Interpretation Comments Range TROPONIN I (test 0.006 ng/mL See_Comment [Automated code = 1378718251) message] The system which generated this result [...] biotin. Lab Interpretation Normal (test code = 66317-1) [facility] CenterN-TERMINAL [id number] 15:19:46 Test Item Value Reference Range Interpretation Comments NT-proBNP (test code 610 pg/mL See_Comment H [Autom ated = 9335651088) message] The system which generated this result transmitted reference range : <=125. The reference range was not used to interpret this result as normal/abnormal . ALYSIA (test code = ALYSIA) Biotin has been reported to cause a negative bias, interpret results relative to patient's use of biotin. Lab Interpretation Abnormal (test code = 34890-4) [facility] CenterMAGNESIUM2021-10-07 15:12:30 Test Item Value Reference Range Interpretation Comments MAGNESIUM (test code = 4718905419) 2.2 mg/dL 1.7-2.4 Lab Interpretation (test code = Normal 90564-6) [facility]. METABOLIC PANEL (86107)2021-06-19 15:12:25 Test Item Value Reference Range Interpretation Comments NA (test code = 120 mmol/L 135-145 L 6906470573) K (test code = 4.3 mmol/L 3.5-5.0 1984297950) CL (test code = 87 mmol/L 98-108 L 2492469636) CO2 TOTAL (test code = 22 mmol/L 23-31 L 3042981689) AGAP (test code = 2-16 6763344675) BUN (test code = 47 mg/dL 7-23 H 7115714835) GLUCOSE (test code = 110 mg/dL 70-110 5976256102) CREATININE (test code = 1.74 mg/dL 0.60-1.25 H 1024968319) TOTAL BILI (test code = 0.6 mg/dL 0.1-1.8 1452777007) CALCIUM (test code = 9.3 mg/dL 8.6-10.6 8759859365) T PROTEIN (test code = 7.2 g/dL 6.3-8.2 8881203481) ALBUMIN (test code = 4.6 g/dL 3.5-5.0 0578584069) ALK PHOS (test code = 99 U/L 34-122 5008794802) ALTv (test code = 48 U/L 5-50 1742-6) AST(SGOT) (test code = 39 U/L 13-40 5496565860) eGFR (test code = mL/min/1.73m2 3719973241) ALYSIA (test code = ALYSIA) Association of [...] tests). Lab Interpretation Abnormal (test code = 66850-2) [facility] CenterURIC [id number] 15:12:04 Test Item Value Reference Range Interpretation Comments URIC ACID (test code = 8833221422) 9.8 mg/dL 3.6-8.0 H Lab Interpretation (test code = Abnormal 39038-5) [facility] CenterPHOSPHORUS2021-10-07 15:12:04 Test Item Value Reference Range Interpretation Comments PHOSPHORUS (test code = 7665166723) 4.4 mg/dL 2.5-5.0 Lab Interpretation (test code = Normal 14521-1) [facility] CenterCBC WITH [id number] 14:38:02 Test Item Value Reference Range Interpretation [...] RDW-SD (test code = 38.5 fL 38.5-51.6 67301-6) RDW-CV (test code = 12.1 % 12.1-15.4 788-0) PLT (test code = See_Comment [Automated 777-3) message] The sy stem which generated this result transmitted reference range : 150 - 328 10*3/ ?L. The reference r kathe was not used to interpret this result as normal/abnormal . MPV (test code = 10.0 fL 9.8-13.0 97457-6) NRBC/100 WBC (test See_Comment [Automat ed code = 6611331484) message] The system which generated this result transmitted reference range : 0.0 - 10.0 /100 WBCs. The refer ence range was not u sed to interpret th is result as normal/abnormal . NRBC x10^3 (test code <0.01 See_Comment [Auto mated = 4551738299) message] The s ystem which generated this result transmitted reference range : 10*3/?L. The reference range was not used to interpret this result as normal/abnormal . GRAN MAT (NEUT) % 71.7 % (test code = 770-8) IMM GRAN % (test code 0.60 % = 7362413107) LYMPH % (test code = 12.4 % 736-9) MONO % (test code = 12.1 % 5905-5) EOS % (test code = 2.7 % 713-8) BASO % (test code = 0.5 % 706-2) GRAN MAT x10^3(ANC) 4.44 10*3/uL 1.99-6.95 (test code = 5676758923) IMM GRAN x10^3 (test 0.04 10*3/uL 0.00-0.06 code = 4398974978) LYMPH x10^3 (test code 0.77 10*3/uL 1.09-3.23 L = 731-0) MONO x10^3 (test code 0.75 10*3/uL 0.36-1.02 = 742-7) EOS x10^3 (test code = 0.17 10*3/uL 0.06-0.53 711-2) BASO x10^3 (test code 0.03 10*3/uL 0.01-0.09 = 704-7) Lab Interpretation Abnormal (test code = 91162-5) [facility] [id number] 11:32:00Surgical Pathology Report Case: [id number] Authorizing Provider: Abran Berrios MD Collected: 02/03/2017 0845 Ordering Location: [facility] Diagnostic Imaging Received: 02/03/2017 0915 Pathologist: Logan [...] on ultrastructural evaluation. Clinical correlation is recommended.Reference: Garland uBsby et al. Pathologic classification of diabetic nephropathy. J Am Soc Nephrol 21:556-563, 2009.94297, 08652 x3, 08109, 63546 x7, 14024Gnztedpigai, DM and serum creatinine 1.3 to 1.4Left [...] or vascular staining. Fibrinogen: diffuse, glomerular and tubulointerstitial,weak.[place]: negative glomeruli; rare small tubular casts are [...] segmentally effaced. Tubular basement membranes are thickened.POCT-GLUCOSE [id number] 09:15:00 Test Item Value Reference Range Interpretation Comments POC-GLUCOSE METER 140 mg/dL 70-110 H TESTED AT [address] ([facility]) (test code [facility] = 1538) [address] [id number] 07:43:00 Test Item Value Reference Range Interpretation Comments PROTIME ([facility]) (test code = 10.2 seconds 9.3-12.0 759) INR ([facility]) (test code = 370) 1.0 <=5.9 PARTIAL THROMBOPLASTIN TIME 25.9 seconds 23.0-35.0 ([facility]) (test code = 760) RECOMMENDED COUMADIN/WARFARIN INR THERAPY RANGESSTANDARD DOSE: 2.0 - 3.0 Includes: PROPHYLAXIS forvenous thrombosis, systemic embolization; TREATMENT for venous thrombosis and/or pulmonary embolus.HIGH RISK: Target INR is 2.5-3.5 for patients with mechanical heart valves.CBC W/PLT COUNT & AUTO DIFFERENTIAL 2017-02-03 07:39:00 Test Item Value Reference Range Interpretation Comments WHITE BLOOD CELL COUNT ([facility]) 6.2 K/ L 4.0-10.0 (test code = 775) RED BLOOD CELL COUNT ([facility]) 3.55 M/ L 4.20-5.80 L (test code = 761) HEMOGLOBIN ([facility]) (test code = 11.2 GM/DL 13.0-16.8 L [...] L 0.00-0.20 (test code = 417) POCT-GLUCOSE [id number] 07:26:00 Test Item Value Reference Range Interpretation Comments POC-GLUCOSE METER 136 mg/dL 70-110 H TESTED AT [address] (BEAKER) (test code [facility] [place] = 1538) [address]"
[2021-08-22] MEDS ORDERED: NITROGLYCERIN 1 GM PKT TD ONE (10:10)
[2021-08-22] MEDS ORDERED: ONDANSETRON 4 MG/2 ML VIAL ONE (10:11)
[2021-08-22] MEDS ORDERED: MORPHINE 2 MG/ML SYR ONE (10:11)
--- NOTE | 2021-08-22 10:12 | RAD REPORT ---
EXAM DESCRIPTION: RAD - Chest Single View - 08/22/2021 9:52 am CLINICAL HISTORY: CHEST PAIN COMPARISON: August 17 TECHNIQUE: AP portable chest image was obtained 08/22/2021 9:52 am . FINDINGS: Lungs are clear. Heart and vasculature are normal. No measurable pleural effusion and no p neumothorax. No acute bony abnormality seen. No acute aortic findings suspected. IMPRESSION: No acute cardiopulmonary process. No significant change from comparison study.
[2021-08-22 10:42] LABS: Absolute Lymphocytes (CBC) 0.8 K/uL (0.7-4.9); Basophils % 1.1 % (0-1.3); Hematocrit 26.9 % (39.6-49.0); Lymphocytes % 21.4 % (15.3-44.8); MPV 7.4 fL (7.6-11.3); RBC Red Blood Cell Count 2.92 M/uL (4.33-5.43)
[2021-08-22 11:05] LABS: ALT/SGPT 87 U/L (12-78); AST/SGOT 43 U/L (15-37); Albumin 3.8 g/dL (3.4-5.0); Alkaline Phosphatase 126 U/L (45-117); BUN Blood Urea Nitrogen 82 mg/dL (7-18); Bicarbonate 19 mmol/L (21-32); Bilirubin Direct < 0.1 mg/dL (0-0.2); Bilirubin Total 0.4 mg/dL (0.2-1.0); Glucose Level 157 mg/dL (74-106); Magnesium 2.9 mg/dL (1.8-2.4); NT PRO-BNP 1260 pg/mL (<125); Protein, Total 7.5 g/dL (6.4-8.2); Sodium Level 135 mmol/L (136-145); Troponin (Emerg Dept Use Only) < 0.02 ng/mL (0.0-0.045)
[2021-08-22 11:08] LABS: Potassium 6.2 mmol/L (3.5-5.1)
[2021-08-22 11:15] LABS: Protime INR 0.99
--- NOTE | 2021-08-22 12:30 | EDPHYS ---
Physician Documentation [facility] Name: Ivan Parra Age: 61 yrs Sex: Male : 1960 Arrival Date: 08/22/2021 Time: 09:31 Bed 5 Private MD: ED Physician Jacek Ward HPI: 08/22 10:06 This 61 yrs old Male presents to ER via Ambulatory with complaints of ABNORMAL kdr EKG. 10:06 The patient or guardian reports chest pain that is located primarily in the substernal kdr area, anterior chest wall. Onset: She has had intermittent chest pain since early June. He has had several stents and multiple cardiac evaluations including admissions and transfers. Patient is is here today from Dr. Kong's office. He presents with continued chest pain which is currently rated 3 out of 10. The current discomfort is not to similar to what he has had since early June. In general though he feels that is getting somewhat worse. There is not an exertional component to his discomfort. The pain does not radiate. Associated signs and symptoms: Pertinent positives: The patient has occasionally has some shortness of breath and diaphoresis but it appears to be more cannot be definitively associated with his chest discomfort. The chest pain is described as aching, When the patient initially had pain, his discomfort was in his right shoulder and upper arm. It subsequently radiated across his chest into the left arm. His current pain is substernal. He does state that his chest pain migrates from his left chest with right chest and back and forth. Again this is been ongoing in one form or another since early June. Duration: The patient or guardian reports multiple episodes, that are intermittent, that wax and wane, with no pattern. Severity of pain: At its worst the pain was mild moderate in the emergency department the pain is unchanged. The patient has experienced similar episodes in the past, chronically. The patient has not recently seen a physician. Dr. Kong called the ED and informed us of the patient's imminent arrival. He indicated that he intends to take the patient to the [facility] sometime later today or tomorrow. He asked that we initiate a cardiac work-up and address his discomfort.. Historical: - Allergies: 09:40 No Known Allergies; ss - Home Meds: 09:40 amlodipine 10 mg tab 1 tab once daily [Active]; aspirin 81 mg Oral chew 1 tab once ss daily [Active]; febuxostat 40 mg Oral tab 1 tab once daily [Active]; icosapent ethyl 1 gram Oral cap 2 caps 2 times per day [Active]; Jentadueto XR 2.5-1,000 mg Oral TBph 1 tab once daily [Active]; levocetirizine 5 mg Oral tab 1 tab once daily [Active]; ferrous sulfate 325 mg (65 mg iron) Oral tab 1 tab once daily [Active]; isosorbide mononitrate 30 mg Oral Tb24 1 tab once daily [Active]; lisinopril 10 mg Oral tab 1 tab once daily [Active]; rosuvastatin 40 mg Oral cpSP 1 cap once daily [Active]; - PMHx: 09:40 Congestive heart failure; kidney disease; Myocardial infarction; Hypercholesterolemia; ss diabetes mellitus; Hypertensive disorder; - PSHx: 09:40 Stented artery; kidney biopsy; angioplasty with 3 stents; ss - Immunization history:: Client reports receiving the 2nd dose of the Covid vaccine. - Social history:: Smoking status: Patient denies any tobacco usage or history of. ROS: 10:06 Constitutional: Negative for fever, chills, and weight loss, Eyes: Negative for injury, kdr pain, redness, and discharge, ENT: Negative for injury, pain, and discharge, Neck: Negative for injury, pain, and swelling, Respiratory: Negative for shortness of breath, cough, wheezing, and pleuritic chest pain, Abdomen/GI: Negative for abdominal pain, nausea, vomiting, diarrhea, and constipation, Back: Negative for injury and pain, : Negative for injury, bleeding, discharge, and swelling, MS/Extremity: Negative for injury and deformity, Skin: Negative for injury, rash, and discoloration, Neuro: Negative for headache, weakness, numbness, tingling, and seizure activity. Psych: Negative for depression, anxiety, suicide ideation, homicidal ideation, and hallucinations, Allergy/Immunology: Negative for hives, rash, and allergies, Endocrine: Negative for neck swelling, polydipsia, polyuria, polyphagia, and marked weight changes, Hematologic/Lymphatic: Negative for swollen nodes, abnormal bleeding, and unusual bruising. 10:06 Cardiovascular: Positive for chest pain, Negative for edema, orthopnea, paroxysmal nocturnal dyspnea. Exam: 09:49 ECG was reviewed by the Attending Physician. kdr 10:06 Constitutional: This is a well developed, well nourished patient who is awake, alert, kdr and in no acute distress. Head/Face: Normocephalic, atraumatic. Eyes: Pupils equal round and reactive to light, extra-ocular motions intact. Lids and lashes normal. Conjunctiva and sclera are non-icteric and not injected. Cornea within normal limits. Periorbital areas with no swelling, redness, or edema. Neck: Trachea midline, no thyromegaly or masses palpated, and no cervical lymphadenopathy. Supple, full range of motion without nuchal rigidity, or vertebral point tenderness. No Meningismus. Chest/axilla: Normal chest wall appearance and motion. Nontender with no deformity. No lesions are appreciated. Respiratory: Lungs have equal breath sounds bilaterally, clear to auscultation and percussion. No rales, rhonchi or wheezes noted. No increased work of breathing, no retractions or nasal flaring. Abdomen/GI: Soft, non-tender, with normal bowel sounds. No distension or tympany. No guarding or rebound. No evidence of tenderness throughout. Back: No spinal tenderness. No costovertebral tenderness. Full range of motion. Skin: Warm, dry with normal turgor. Normal color with no rashes, no lesions, and no evidence of cellulitis. MS/ Extremity: Pulses equal, no cyanosis. Neurovascular intact. Full, normal range of motion. Neuro: Awake and alert, GCS 15, oriented to person, place, time, and situation. Cranial nerves II-XII grossly intact. Motor strength 5/5 in all extremities. Sensory grossly intact. Cerebellar exam normal. Normal gait. Psych: Awake, alert, with orientation to person, place and time. Behavior, mood, and affect are within normal limits. 10:06 Cardiovascular: Rate: normal, actual rate is 82 bpm, Rhythm: regular, Pulses: no pulse deficits are appreciated, Heart sounds: Prominent pulmonic valve click. Otherwise no abnormal finding, Edema: is not appreciated, JVD: is not appreciated. Vital Signs: 09:37 BP 180 / 81; Pulse 82; Resp 17; Temp 97.3(TE); Pulse Ox 100% on R/A; Weight 79.83 kg; ss Height 5 ft. 8 in. (172.72 cm); Pain 3/10; 11:00 BP 122 / 70; Pulse 78; Resp 18; Pulse Ox 100% ; bp 12:00 BP 137 / 75; Pulse 74; Resp 16; Pulse Ox 100% ; bp 17:30 BP 157 / 74; Pulse 77; Resp 17; Pulse Ox 100% ; bp 18:30 BP 154 / 76; Pulse 81; Resp 17; Pulse Ox 100% ; bp 09:37 Body Mass Index 26.76 (79.83 kg, 172.72 cm) ss MDM: 10:06 Data reviewed: vital signs, nurses notes, lab test result(s), EKG, radiologic studies. kdr Counseling: I had a detailed discussion with the patient and/or guardian regarding: the historical points, exam findings, and any diagnostic results supporting the discharge/admit diagnosis, lab results, radiology results, the need for outpatient follow up. 12:30 Patient medically screened. kdr 08/22 09:33 Order name: Basic Metabolic Panel kdr 08/22 09:33 Order name: CBC with Diff kdr 08/22 09:33 Order name: LFT's kdr 08/22 09:33 Order name: Magnesium kdr 08/22 09:33 Order name: NT PRO-BNP kdr 08/22 09:33 Order name: PT-INR kdr 08/22 09:33 Order name: Troponin (emerg Dept Use Only) kdr 08/22 09:33 Order name: Basic Metabolic Panel EDMS 08/22 09:33 Order name: CBC with Automated Diff EDMS 08/22 09:33 Order name: Liver (Hepatic) Function EDMS 08/22 09:33 Order name: Magnesium EDMS 08/22 10:58 Order name: SARS-COV-2 RT PCR EDMS 08/22 13:12 Order name: CBC with Automated Diff EDMS 08/22 09:33 Order name: XRAY Chest (1 view) kdr 08/22 13:12 Order name: CBC with Automated Diff EDMS 08/22 13:12 Order name: Comprehensive Metabolic Panel EDMS 08/22 13:12 Order name: Comprehensive Metabolic Panel EDMS 08/22 13:12 Order name: Magnesium EDMS 08/22 13:12 Order name: Magnesium EDMS 08/22 13:12 Order name: T4 Free EDMS 08/22 13:12 Order name: T4 Free EDMS 08/22 13:12 Order name: Thyroid Stimulating Hormone EDMI 08/22 13:13 Order name: Thyroid Stimulating Hormone EDMI 08/22 17:36 Order name: BMP bp 08/22 18:15 Order name: Basic Metabolic Panel EDMI 08/22 09:33 Order name: EKG; Complete Time: 09:34 kdr 08/22 09:33 Order name: Cardiac monitoring; Complete Time: 09:53 kdr 08/22 09:33 Order name: EKG - Nurse/Tech; Complete Time: 09:52 kdr 08/22 09:33 Order name: IV Saline Lock; Complete Time: 10:42 kdr 08/22 09:33 Order name: Labs collected and sent; Complete Time: 10:42 kdr 08/22 09:33 Order name: O2 Per Protocol; Complete Time: 10:42 kdr 08/22 09:33 Order name: O2 Sat Monitoring; Complete Time: 10:42 kdr 08/22 10:46 Order name: Labs - recollect needed: recollect blue top; Complete Time: 10:47 eb 08/22 13:12 Order name: CONS Physician Consult [facility] 08/22 13:12 Order name: Heart Healthy [facility] 08/22 13:12 Order name: NPO [facility] 08/22 13:13 Order name: Patient Safety Orders EDMI EC:49 Rate is 82 beats/min. Rhythm is regular, Sinus Rhythm with No ectopy. QRS Santo is kdr Normal. VT interval is normal. QRS interval is normal. QT interval is normal. Clinical impression: NSR w/ Non-specific ST/T Changes and Inferior ST changes. Administered Medications: 10:30 Drug: Nitro-Bid (nitroglycerin) Ointment 2 % 0.5 inches Route: Transdermal; Site: bp anterior chest wall; 10:30 Drug: morphine 2 mg Route: IVP; Site: left forearm; bp 10:47 Follow up: Response: No adverse reaction bp 10:30 Drug: Zofran (Ondansetron) 4 mg Route: IVP; Site: left forearm; bp 10:47 Follow up: Response: No adverse reaction bp Disposition Summary: 08/22/21 12:30 Hospitalization Ordered Hospitalization Status: Inpatient Admission kdr Provider: Adam Beach Location: Telemetry/MedSurg (Inpatient) kdr Condition: Fair kdr Problem: an ongoing problem kdr Symptoms: have improved kdr Bed/Room Type: Standard kdr Room Assignment: 229(08/22/21 17:26) eb Diagnosis - Unstable angina kdr - Chest pain, unspecified kdr Discharge Instructions: - Discharge Summary Sheet eb Forms: - Medication Reconciliation Form kdr - SBAR form kdr Signatures: Dispatcher [employer] EDMI Jacek Ward MD MD kdr Bambi Song RN RN ss Abhishek Rand RN RN bp Botello, Elizabeth eb Corrections: (The following items were deleted from the chart) 10:58 09:46 CORONAVIRUS+MRMARIA G.BRZ ordered. EDMI EDMS 17:26 12:30 kdr eb
--- NOTE | 2021-08-22 12:30 | ER ---
Nurse's Notes [facility] Name: Ivan Parra Age: 61 yrs Sex: Male : 1960 Arrival Date: 08/22/2021 Time: 09:31 Bed 5 Private MD: Diagnosis: Unstable angina;Chest pain, unspecified Presentation: 08/22 09:37 Chief complaint: Patient states: Sent by Dr. Vasquez for abnormal EKG. Pt reports he was ss admitted for chest pain 08/13 and 3 cardiac stents placed beginning of July. Pt reports that he has had continuous chest pain throughout admission and up until today. Pain is not worse, just has not gotten better. Coronavirus screen: Client denies travel out of the [place] in the last 14 days. Ebola Screen: Patient denies exposure to infectious person. Patient denies travel to an Ebola-affected area in the 21 days before illness onset. Initial Sepsis Screen: Does the patient meet any 2 criteria? No. Patient's initial sepsis screen is negative. Does the patient have a suspected source of infection? No. Patient's initial sepsis screen is negative. Risk Assessment: Do you want to hurt yourself or someone else? Patient reports no desire to harm self or others. Onset of symptoms was August 13, 2021. 09:37 Method Of Arrival: Ambulatory ss 09:37 Acuity: KERWIN 3 ss Triage Assessment: 10:00 General: Appears in no apparent distress. uncomfortable, Behavior is cooperative, bp appropriate for age, anxious. Pain: Complains of pain in chest. EENT: No deficits noted. Neuro: No deficits noted. Cardiovascular: Reports chest pain. Respiratory: No deficits noted. GI: No signs and/or symptoms were reported involving the gastrointestinal system. : No signs and/or symptoms were reported regarding the genitourinary system. Derm: No deficits noted. Musculoskeletal: No deficits noted. Historical: - Allergies: 09:40 No Known Allergies; ss - Home Meds: 09:40 amlodipine 10 mg tab 1 tab once daily [Active]; aspirin 81 mg Oral chew 1 tab once ss daily [Active]; febuxostat 40 mg Oral tab 1 tab once daily [Active]; icosapent ethyl 1 gram Oral cap 2 caps 2 times per day [Active]; Jentadueto XR 2.5-1,000 mg Oral TBph 1 tab once daily [Active]; levocetirizine 5 mg Oral tab 1 tab once daily [Active]; ferrous sulfate 325 mg (65 mg iron) Oral tab 1 tab once daily [Active]; isosorbide mononitrate 30 mg Oral Tb24 1 tab once daily [Active]; lisinopril 10 mg Oral tab 1 tab once daily [Active]; rosuvastatin 40 mg Oral cpSP 1 cap once daily [Active]; - PMHx: 09:40 Congestive heart failure; kidney disease; Myocardial infarction; Hypercholesterolemia; ss diabetes mellitus; Hypertensive disorder; - PSHx: 09:40 Stented artery; kidney biopsy; angioplasty with 3 stents; ss - Immunization history:: Client reports receiving the 2nd dose of the Covid vaccine. - Social history:: Smoking status: Patient denies any tobacco usage or history of. Screenin:43 Abuse screen: Denies threats or abuse. Denies injuries from another. Nutritional bp screening: No deficits noted. Tuberculosis screening: No symptoms or risk factors identified. Fall Risk None identified. Assessment: 10:00 General: SEE TRIAGE NOTE. bp 12:00 Reassessment: No changes from previously documented assessment. Patient and/or family bp updated on plan of care and expected duration. Pain level reassessed. 12:41 Reassessment: ADMIT INITIATED. 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 bp 17:30 Reassessment: No changes from previously documented assessment. PT RETURNED FROM CATH bp LAB. ADMIT IN PROCESS. PER TABLE WORKER PERSONNEL, CATH UNREMARKABLE. Vital Signs: 09:37 BP 180 / 81; Pulse 82; Resp 17; Temp 97.3(TE); Pulse Ox 100% on R/A; Weight 79.83 kg; Height 5 ft. 8 in. (172.72 cm); Pain 3/10; 11:00 BP 122 / 70; Pulse 78; Resp 18; Pulse Ox 100% ; bp 12:00 BP 137 / 75; Pulse 74; Resp 16; Pulse Ox 100% ; bp 17:30 BP 157 / 74; Pulse 77; Resp 17; Pulse Ox 100% ; bp 18:30 BP 154 / 76; Pulse 81; Resp 17; Pulse Ox 100% ; bp 09:37 Body Mass Index 26.76 (79.83 kg, 172.72 cm) ED Course: 09:31 Patient arrived in ED. kc5 09:33 Jacek Ward MD is Attending Physician. kdr 09:40 Triage completed. 09:40 Arm band placed on right wrist. 09:52 XRAY Chest (1 view) In Process Unspecified. EDVT 09:53 EKG done, by ED staff, reviewed by Jacek Ward MD. mb7 10:41 Abhishek Rand, RN is Primary Nurse. bp 10:42 Inserted saline lock: 22 gauge in left forearm, using aseptic technique. Blood bp collected. 10:46 Patient has correct armband on for positive identification. Bed in low position. Call bp light in reach. Side rails up X2. Adult w/ patient. 12:29 Adam Beach DO is Hospitalizing Provider. kdr 18:32 No provider procedures requiring assistance completed. Patient admitted, IV remains in bp place. Administered Medications: 10:30 Drug: Nitro-Bid (nitroglycerin) Ointment 2 % 0.5 inches Route: Transdermal; Site: bp anterior chest wall; 10:30 Drug: morphine 2 mg Route: IVP; Site: left forearm; bp 10:47 Follow up: Response: No adverse reaction bp 10:30 Drug: Zofran (Ondansetron) 4 mg Route: IVP; Site: left forearm; bp 10:47 Follow up: Response: No adverse reaction bp Outcome: 12:30 Decision to Hospitalize by Provider. kdr 18:32 Admitted to Med/surg accompanied by tech, family with patient, via wheelchair, room bp 229, with chart, Report called to FAROOQ HART 18:32 Condition: stable 18:32 Instructed on the need for admit. 18:37 Patient left the ED. bp Signatures: Dispatcher [employer] EDVT Jacek Ward MD MD kdr Bambi Song RN RN ss Abhishek Rand, TANNER RN Estrellita Ngo [facility] Temi Bee mb7
[2021-08-22] MEDS ORDERED: NA CHLORIDE 0.9% 500 ML ONE (12:47)
--- NOTE | 2021-08-22 12:59 | P.HP ---
Certification for Inpatient Patient admitted to: Observation With expected LOS: <2 Midnights Patient will require the following post-hospital care: None Practitioner: I am a practitioner with admitting privileges, knowledge of patient current condition, hospital course, and medical plan of care. Services: Services provided to patient in accordance with Admission requirements found in Title 42 Section 412.3 of the Code of Federal Regulations Patient History Date of Service: 08/22/21 Primary Care Provider: Dr. Hill; Cardiology-Dr. Jimenez Reason for admission: Chest pain History of Present Illness: 61-year-old male with history of hypertension, CAD with recent stent, diabetes, hyperlipidemia, anemia of chronic disease with iron deficiency, and chronic renal disease. Patient presented with chest pain. Mainly to the substernal region. Patient had recent heart catheterization early July. He reports 2 stents were placed at that time. Patient has recently seen cardiology. No significant shortness of breath noted. No nausea or vomiting. Patient came to the ER for further evaluation. In the ER patient was evaluated. EKG shows some suspicious changes in the inferior leads. Sodium 135, potassium of 6.2. Creatinine 1.75. GFR 40. Glucose 175. Hemoglobin 8.9. Troponin unremarkable. AST 43, ALT 87. BNP 1260. Covid test negative. Chest x-ray unremarkable. ER discussed case with cardiology. Cardiology plans for heart catheterization at this time. Allergies No Known Allergies Allergy (Verified 07/15/21 22:34) Home medications list reviewed: Yes Home Medications: Amlodipine [Norvasc*] 10 mg PO DAILY 07/16/21 Aspirin 81 mg PO DAILY 07/16/21 Cholecalciferol (Vitamin D3) [Vitamin D3] 50 mcg PO DAILY 07/16/21 Ezetimibe/Rosuvastatin Calcium [Rosuvastatin-Ezetimibe 40-10Mg] 1 each PO DAILY 6PM 07/16/21 Febuxostat 40 mg PO DAILY 07/16/21 Ferrous Sulfate 325 mg PO DAILY 07/16/21 Icosapent Ethyl [Vascepa] 1 gm PO TID 07/16/21 Levocetirizine Dihydrochloride [24Hr Allergy Relief] 5 mg PO DAILY 07/16/21 Clopidogrel Bisulfate [Plavix] 75 mg PO DAILY #30 tablet 07/18/21 - Past Medical/Surgical History -: Hypertension -: DM type 2 -: Chronic kidney disease -: CAD with prior stent -: Hyperlipidemia -: Anemia of chronic disease with iron deficiency -: GERD Past Surgical History: Patient denies surgical history Psychosocial/ Personal History: Patient lives at home. He is - Family History Family History: Reviewed- Non-Contributory - Family History Mother -: Diabetes Father -: Heart disease - Social History Smoking Status: Never smoker Alcohol use: Yes CD- Drugs: No Caffeine use: No Place of Residence: Home Review of Systems General: As per HPI Eyes: Unremarkable ENT: Unremarkable Respiratory: Unremarkable Cardiovascular: Chest Pain, As per HPI Gastrointestinal: Unremarkable Genitourinary: Unremarkable Musculoskeletal: Unremarkable Integumentary: Unremarkable Neurological: Unremarkable Lymphatics: Unremarkable Physical Examination - Studies Laboratory Data (last 24 hrs) 08/22/21 11:00: PT 11.4, INR 0.99 08/22/21 10:27: WBC 3.90 L D, Hgb 8.9 L, Hct 26.9 L, Plt Count 215 08/22/21 10:27: Sodium 135 L, Potassium 6.2 H*, BUN 82 H, Creatinine 1.75 H, Glucose 157 H, Magnesium 2.9 H D, Total Bilirubin 0.4, AST 43 H, ALT 87 H, Alkaline Phosphatase 126 H Assessment and Plan - Plan COVID: Negative Chest x-ray: Unremarkable Physical Exam: GENERAL: The patient is a well-developed, well-nourished, in no apparent distress. Alert and oriented x3. VITAL SIGNS: Reviewed HEENT: Head is normocephalic and atraumatic. Extraocular muscles are intact. Pupils are equal, round, and reactive to light and accommodation. Nares appeared normal. Mouth is well hydrated and without lesions. Mucous membranes are moist. NECK: Supple. No carotid bruits. No lymphadenopathy or thyromegaly. LUNGS: Clear to auscultation. No crackles or wheezes are heard. HEART: Regular rate and rhythm, no appreciable gallops, rubs, murmurs or extra heart sounds ABDOMEN: Soft, nontender, and nondistended. Positive bowel sounds. No hepatosplenomegaly was noted. EXTREMITIES: Without any cyanosis, clubbing, rash, lesions or peripheral edema. NEUROLOGIC: The patient is oriented to person, place and time. Strength and sensation are grossly intact. Face is symmetric. SKIN: Normal color, turgor and temperature. No ulcerations or rashes noted. Impression: Chest pain with history of CAD and recent stent Hypertension Diabetes mellitus type 2 Chronic renal disease stage III with hyperkalemia Elevated liver function Anemia of chronic disease with iron deficiency GERD Plan: Chest pain with history of CAD and recent stent: Patient admitted for further evaluation and treatment. Patient to have heart catheterization now. Case discussed at length with cardiology. Patient also with hyperkalemia. ER will give potassium cocktail. Await findings from heart catheterization. Await further recommendations from cardiology. Hypertension: Continue with Norvasc. Hold lisinopril at this time. Diabetes mellitus type 2: Continue Accu-Cheks and sliding scale. Hold Metformin Chronic renal disease stage III with hyperkalemia: We will continue with IV fluids. Patient to be treated for hyperkalemia. May need to discuss with cardiology and nephrology. Elevated liver function: We will review and trend lab. Anemia of chronic disease with iron deficiency: Continue iron supplementation. GERD: Continue medication. Hyperlipidemia: Continue with Crestor Code Status: Full Code DVT prophylaxis: SCD Advanced Care Planning-30 minutes: Home at discharge Discharge Plan: Home Plan to discharge in: 24 Hours - Advance Directives Does patient have a Living Will: No Does patient have a Durable POA for Healthcare: No - Code Status/Comfort Care Code Status Assessed: Yes (Patient is full code) Time Spent Managing Pts Care (In Minutes): 55
[2021-08-22] MEDS ORDERED: ONDANSETRON 4 MG/2 ML VIAL IV PRN (13:11)
[2021-08-22] MEDS ORDERED: NA CHLORIDE 0.9% 1,000 ML IV SCH (13:11)
[2021-08-22] MEDS ORDERED: ACETAMINOPHEN 500 MG TAB PO PRN (13:11)
[2021-08-22] MEDS ORDERED: LIDOCAINE 1% 20 ML MDV ONE (13:51)
[2021-08-22] MEDS ORDERED: MIDAZOLAM HCL 2 MG/2 ML INJ ONE (13:51)
[2021-08-22] MEDS ORDERED: HEPARIN 5000 UNIT/ML 1 ML VIAL ONE (13:52)
[2021-08-22] MEDS ORDERED: FENTANYL CITR 100 MCG/2 ML ONE (13:52)
[2021-08-22] MEDS ORDERED: VERAPAMIL HCL 10 MG/4 ML VIAL IV ONE (13:52)
[2021-08-22] MEDS ORDERED: ATROPINE SULF 1 MG/10 ML SYR IV ONE (13:52)
[2021-08-22] MEDS ORDERED: HEPA 1000U/500MLS 2,000 UNIT/1,000 ML BAG IV ONE (13:53)
[2021-08-22] MEDS ORDERED: NITROGLYCERIN 100 MCG/ML SYR (for cath lab use only) IV ONE (13:53)
[2021-08-22] MEDS: FAMOTIDINE 20 MG TAB PO SCH (14:00)
[2021-08-22] MEDS ORDERED: GENTAMICIN 80 MG/100 ML BAG 240 MG/300 ML BAG IV ONE (15:00)
[2021-08-22] MEDS: INSULIN -REGULAR HUMAN 50 UNIT/0.5 ML ML SQ SCH ×2 (16:30→20:07)
[2021-08-22 18:14] LABS: Potassium 5.7 mmol/L (3.5-5.1)
--- NOTE | 2021-08-22 19:29 | OP ---
Date of Procedure: 08/22/2021 Surgeon: ARTUR HAYNES Procedure Performed: Selective coronary angiogram. Indication: Unstable angina. Access: Right radial artery 6-Qatari closed with TR band. Complications: None. Bleeding: Less than 10 mL. Description Of Procedure: After risks, benefits, and alternatives were explained, the patient agreed to proceed and signed informed consent. The patient was brought into the cardiac catheterization la boratory, prepped and draped in usual sterile fashion. We accessed right radial artery using pediatr ic micropuncture kit and placed a 6-Qatari slender sheath and then, we took a 6-Qatari JR4 catheter i n the aortic root, engaged the RCA and the left circumflex, which comes off the right coronary artery and took an angiogram and used only a 15 cc of contrast due to advanced kidney disease and then oleg salma the catheter and sheath, placed TR band. Good hemostasis. Findings: 1.Patent ostial RCA stent. 2.Patent LCX stent. Plan: Observe overnight. If continues to be stable, discharge home. Follow up with me in the offic e in one week. SR/MODL Voice ID: [id number] Report ID: [id number]
[2021-08-22 19:37] VITALS: BMI 26.9
[2021-08-22 20:58] VITALS: O2SAT 98
[2021-08-22] MEDS ORDERED: ROSUVASTATIN 10 MG TAB PO SCH (21:00)
[2021-08-22] MEDS ORDERED: SOD POLYSTYREN SUL 15 GM/60 ML UCUP PO ONE (21:59)
--- NOTE | 2021-08-23 05:53 | P.DS ---
Admission Date: 08/22/21 Discharge Date: 08/23/21 Primary Care Provider: Dr. Hill; Cardiology-Dr. Haynes; Nephrology-Dr. Edmondson Disposition: ROUTINE DISCHARGE Discharge Condition: GOOD Reason for Admission: Chest pain Consultations: Cardiology-Dr. Haynes Procedures: COVID: Negative Chest x-ray: Unremarkable Heart cath: Date of Procedure: 08/22/2021 Surgeon: ARTUR HAYNES Procedure Performed: Selective coronary angiogram. Indication: Unstable angina. Access: Right radial artery 6-Tajik closed with TR band. Complications: None. Bleeding: Less than 10 mL. Findings: 1. Patent ostial RCA stent. 2. Patent LCX stent. Medical Problem List: Chest pain with history of CAD and recent stent status post heart cath showing patent ostial RCA stent and patent LCX stent likely unstable angina Hypertension Diabetes mellitus type 2 Chronic renal disease stage III with hyperkalemia Elevated liver function Anemia of chronic disease with iron deficiency GERD Gout Brief History of Present Illness: 61-year-old male with history of hypertension, CAD with recent stent, diabetes, hyperlipidemia, anemia of chronic disease with iron deficiency, and chronic renal disease. Patient presented with chest pain. Mainly to the substernal region. Patient had recent heart catheterization early July. He reports 2 stents were placed at that time. Patient has recently seen cardiology. No significant shortness of breath noted. No nausea or vomiting. Patient came to the ER for further evaluation. In the ER patient was evaluated. EKG shows some suspicious changes in the inferior leads. Sodium 135, potassium of 6.2. Creatinine 1.75. GFR 40. Glucose 175. Hemoglobin 8.9. Troponin unremarkable. AST 43, ALT 87. BNP 1260. Covid test negative. Chest x-ray unremarkable. ER discussed case with cardiology. Cardiology plans for heart catheterization at this time. Hospital Course: Patient presented with chest pain likely unstable angina. Patient with history of CAD with recent stents. Patient was seen by cardiology. Cardiology recommended heart catheterization to further evaluate. Heart catheterization showed patent patent ostial RCA stent and patent LCX stent. No need for further intervention was required. The patient did well in the course of his stay. His potassium was elevated. Patient given medication for this. Adjustments in his medication was required. 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 Overall patient has improved. At discharge the patient will continue with aspirin 81 mg daily, Plavix 75 mg daily, Norvasc 10 mg daily, carvedilol 3 1.25 mg 1 pill twice daily, Zetia/Crestor 10/40 mg 1 pill daily, and Vascepa 1 g twice daily. Imdur will be increased to 60 mg daily. Patient may use nitroglycerin as needed for chest pain. Recommend follow-up with cardiology in 2 to 4 weeks to follow-up hospitalization. Recommend follow-up with his PCP in 1 week to follow-up this hospitalization. Patient with hypertension. Blood pressures were elevated. Medication was adjusted due to his chronic renal disease and hyperkalemia. Norvasc was started. Lisinopril was discontinued. At discharge Lisinopril was discontinued. At discharge patient will continue with Norvasc 10 mg daily and carvedilol 3.125 mg 1 pill twice daily. Recommend to maintain blood pressure less than 130/80. If blood pressure remains above 140/90 further adjustment may be required. This can be done with the help of his PCP, nephrology or cardiology. Patient with hyperlipidemia. LDL well controlled. At discharge patient will continue with his current medications of Zetia/Crestor 10/40 mg 1 pill daily and Vascepa 1 g twice daily. Recommend to recheck fasting lipid panel and CMP in 1 month to monitor his progress. Patient with diabetes mellitus type 2. Hemoglobin A1c obtained. This can be followed up as an outpatient. At discharge patient will continue with his current medication of Victosa as directed and Jentadueto 2.5/500 mg daily. Recommend to blood sugar less than 140 fasting and less than 200 after meals. Recommend to continue diabetic diet. If blood sugars remain above 200 further adjustment in medication can be done by his PCP. If renal function is further compromised in the future will need to adjust his medication. This can be further addressed by his PCP and nephrology. Recommend to recheck hemoglobin A1c every 3 months. Recommend follow-up with PCP to further monitor. Patient with elevated liver function. Repeat levels showed improvement. Patient appears back to his baseline. Recommend to recheck CMP in 1 month to monitor his progress. Patient with chronic renal disease stage III. Hyperkalemia was noted upon admission. Patient given hyperkalemia treatment during his stay. Potassium now back to normal range. Case discussed in detail with his tooth cutter clutch. Patient has been taking Veltassa once daily for his hyperkalemia. After discussion with nephrology, patient will continue with Veltassa 1 pill daily. Nephrology is aware that lisinopril was discontinued due to his hyperkalemia. If this improves in the future nephrology will consider restarting lisinopril if blood pressure remains elevated. At discharge recommend to continue current regimen. Recommend to recheck labBMP within 1 week. Follow-up with nephrology in 1 to 2 weeks to follow-up this hospitalization. Future medications may need to be renally dosed. Recommend no further use of nonsteroidal anti-inflammatories. Patient with gout. At discharge patient will continue with Uloric 40 mg daily. Patient with anemia of chronic disease with iron deficiency. At discharge patient will continue with iron 325 mg daily. Recommend to recheck CBC in 1 month to monitor his progress. Patient likely with underlying GERD. At discharge will recommend to continue Protonix 40 mg daily. With his iron deficiency recommend GI evaluation to further evaluate if this has not been done in the past. Vital Signs/Physical Exam: Temp Pulse Resp BP Pulse Ox 97.5 F 91 H 19 142/71 H 98 08/23/21 04:00 08/23/21 04:00 08/23/21 04:00 08/23/21 04:00 08/23/21 04:00 General: Alert, In no apparent distress, Oriented x3, Cooperative HEENT: Atraumatic, Mucous membr. moist/pink Neck: Supple Respiratory: Clear to auscultation bilaterally, Normal air movement Cardiovascular: Normal pulses, Regular rate/rhythm Gastrointestinal: Normal bowel sounds, No tenderness, No masses, No rebound, No guarding Musculoskeletal: No erythema, No tenderness, No warmth Integumentary: No tenderness/swelling, No erythema, No warmth, No cyanosis Neurological: Normal speech, Normal strength at 5/5 x4 extr, Normal tone, Normal affect Laboratory Data at Discharge: WBC 3.90 K/uL (4.3-10.9) L D 08/22/21 10:27 Hgb 8.9 g/dL (13.6-17.9) L 08/22/21 10:27 Hct 26.9 % (39.6-49.0) L 08/22/21 10:27 Plt Count 215 K/uL (152-406) 08/22/21 10:27 PT 11.4 SECONDS (9.5-12.5) 08/22/21 11:00 INR 0.99 08/22/21 11:00 Sodium 139 mmol/L (136-145) 08/22/21 17:45 Potassium 5.7 mmol/L (3.5-5.1) H* 08/22/21 17:45 BUN 73 mg/dL (7-18) H 08/22/21 17:45 Creatinine 1.62 mg/dL (0.55-1.3) H 08/22/21 17:45 Glucose 75 mg/dL (74-106) 08/22/21 17:45 Magnesium 2.9 mg/dL (1.8-2.4) H D 08/22/21 10:27 Total Bilirubin 0.4 mg/dL (0.2-1.0) 08/22/21 10:27 AST 43 U/L (15-37) H 08/22/21 10:27 ALT 87 U/L (12-78) H 08/22/21 10:27 Alkaline Phosphatase 126 U/L (45-117) H 08/22/21 10:27 Home Medications: Aspirin 81 mg PO DAILY 07/16/21 Cholecalciferol (Vitamin D3) [Vitamin D3] 50 mcg PO DAILY 07/16/21 Ezetimibe/Rosuvastatin Calcium [Rosuvastatin-Ezetimibe 40-10Mg] 1 each PO DAILY 6PM 07/16/21 Febuxostat 40 mg PO DAILY 07/16/21 Ferrous Sulfate 325 mg PO DAILY 07/16/21 Icosapent Ethyl [Vascepa] 1 gm PO BID 07/16/21 Levocetirizine Dihydrochloride [24Hr Allergy Relief] 5 mg PO DAILY 07/16/21 Clopidogrel Bisulfate [Plavix*] 75 mg PO DAILY #30 tablet 07/18/21 Amlodipine [Norvasc*] 10 mg PO DAILY #30 tab 08/23/21 Carvedilol [Coreg] 3.125 mg PO BID 08/23/21 Isosorbide Mononitrate [Isosorbide Mononitrate ER] 60 mg PO DAILY #30 tab.er.24h 08/23/21 Linagliptin/Metformin HCl [Jentadueto 2.5 mg-500 mg Tab] 2.5 mg PO DAILY 08/23/21 Nitroglycerin 0.4 mg PO PRN PRN 08/23/21 Pantoprazole [Protonix Tab*] 40 mg PO DAILYAC #30 tab 08/23/21 Patiromer Calcium Sorbitex [Veltassa] 16.8 g PO DAILY 08/23/21 New Medications: Isosorbide Mononitrate [Isosorbide Mononitrate ER] 60 mg PO DAILY #30 tab.er.24h Amlodipine [Norvasc*] 10 mg PO DAILY #30 tab Pantoprazole [Protonix Tab*] 40 mg PO DAILYAC #30 tab Physician Discharge Instructions: Patient presented with chest pain likely unstable angina. Patient with history of CAD with recent stents. Patient was seen by cardiology. Cardiology recommended heart catheterization to further evaluate. Heart catheterization showed patent patent ostial RCA stent and patent LCX stent. No need for further intervention was required. The patient did well in the course of his stay. His potassium was elevated. Patient given medication for this. Adjustments in his medication was required. 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 Overall patient has improved. At discharge the patient will continue with aspirin 81 mg daily, Plavix 75 mg daily, Norvasc 10 mg daily, carvedilol 3 1.25 mg 1 pill twice daily, Zetia/Crestor 10/40 mg 1 pill daily, and Vascepa 1 g twice daily. Imdur will be increased to 60 mg daily. Patient may use nitroglycerin as needed for chest pain. Recommend follow-up with cardiology in 2 to 4 weeks to follow-up hospitalization. Recommend follow-up with his PCP in 1 week to follow-up this hospitalization. Patient with hypertension. Blood pressures were elevated. Medication was adjusted due to his chronic renal disease and hyperkalemia. Norvasc was started. Lisinopril was discontinued. At discharge Lisinopril was discontinued. At discharge patient will continue with Norvasc 10 mg daily and carvedilol 3.125 mg 1 pill twice daily. Recommend to maintain blood pressure less than 130/80. If blood pressure remains above 140/90 further adjustment may be required. This can be done with the help of his PCP, nephrology or cardiology. Patient with hyperlipidemia. LDL well controlled. At discharge patient will continue with his current medications of Zetia/Crestor 10/40 mg 1 pill daily and Vascepa 1 g twice daily. Recommend to recheck fasting lipid panel and CMP in 1 month to monitor his progress. Patient with diabetes mellitus type 2. Hemoglobin A1c obtained. This can be followed up as an outpatient. At discharge patient will continue with his current medication of Victosa as directed and Jentadueto 2.5/500 mg daily. Recommend to blood sugar less than 140 fasting and less than 200 after meals. Recommend to continue diabetic diet. If blood sugars remain above 200 further adjustment in medication can be done by his PCP. If renal function is further compromised in the future will need to adjust his medication. This can be further addressed by his PCP and nephrology. Recommend to recheck hemoglobin A1c every 3 months. Recommend follow-up with PCP to further monitor. Patient with elevated liver function. Repeat levels showed improvement. Patient appears back to his baseline. Recommend to recheck CMP in 1 month to monitor his progress. Patient with chronic renal disease stage III. Hyperkalemia was noted upon admission. Patient given hyperkalemia treatment during his stay. Potassium now back to normal range. Case discussed in detail with his tooth cutter clutch. Patient has been taking Veltassa once daily for his hyperkalemia. After discussion with nephrology, patient will continue with Veltassa 1 pill daily. Nephrology is aware that lisinopril was discontinued due to his hyperkalemia. If this improves in the future nephrology will consider restarting lisinopril if blood pressure remains elevated. At discharge recommend to continue current regimen. Recommend to recheck labBMP within 1 week. Follow-up with nephrology in 1 to 2 weeks to follow-up this hospitalization. Future medications may need to be renally dosed. Recommend no further use of nonsteroidal anti-inflammatories. Patient with gout. At discharge patient will continue with Uloric 40 mg daily. Patient with anemia of chronic disease with iron deficiency. At discharge patient will continue with iron 325 mg daily. Recommend to recheck CBC in 1 month to monitor his progress. Patient likely with underlying GERD. At discharge will recommend to continue Protonix 40 mg daily. With his iron deficiency recommend GI evaluation to further evaluate if this has not been done in the past. Diet: ADA Activity: Ad anjali Followup: NONE,NONE [Primary Care Provider] - Time spent managing pt's care (in minutes): 55
[2021-08-23 06:03] LABS: Absolute Lymphocytes (CBC) 1.1 K/uL (0.7-4.9); Basophils % 1.1 % (0-1.3); Hematocrit 24.2 % (39.6-49.0); Lymphocytes % 26.4 % (15.3-44.8); MPV 7.2 fL (7.6-11.3); RBC Red Blood Cell Count 2.66 M/uL (4.33-5.43)
[2021-08-23 06:42] LABS: Albumin 3.4 g/dL (3.4-5.0); Bilirubin Total 0.3 mg/dL (0.2-1.0); Magnesium 2.6 mg/dL (1.8-2.4); Potassium 5.3 mmol/L (3.5-5.1); Protein, Total 6.6 g/dL (6.4-8.2); Thyroid Stimulating Hormone 1.61 uIU/mL (0.360-3.740)
[2021-08-23] MEDS ORDERED: CALCIUM GLUC 10% INJ 4.65 MEQ in NA CHLORIDE 0.9% 100 ML IV ONE (06:57)
[2021-08-23] MEDS ORDERED: D50W 25 GM/50 ML SYRINGE IV ONE ×3 (06:59→07:03)
[2021-08-23] MEDS ORDERED: INSULIN -REGULAR HUMAN 50 UNIT/0.5 ML ML IV ONE (07:01)
[2021-08-23] MEDS: INSULIN -REGULAR HUMAN 50 UNIT/0.5 ML ML SQ SCH ×2 (07:30→11:21)
[2021-08-23] MEDS ORDERED: D5 0.9 NS 1,000 ML IV SCH (08:00)
[2021-08-23] MEDS: FAMOTIDINE 20 MG TAB PO SCH (08:45)
[2021-08-23] MEDS ORDERED: carvediloL 3.125 MG TAB PO SCH (08:46)
[2021-08-23] MEDS ORDERED: CLOPIDOGREL 75 MG TABLET PO SCH (09:00)
[2021-08-23] MEDS ORDERED: FERROUS SULFATE 325 MG TAB PO SCH (09:00)
[2021-08-23] MEDS ORDERED: [UNRECOGNIZED DRUG - REMARK] PO SCH (09:00)
[2021-08-23] MEDS: icosapent ethyL 1 GM CAP PO SCH ×2 (09:00→10:18)
[2021-08-23] MEDS ORDERED: HOME MED 1 EA UNK (Febuxostat [Febuxostat] 40 MG Tablet) PO SCH (09:00)
[2021-08-23] MEDS ORDERED: HOME MED 1 EA UNK (Cholecalciferol (Vitamin D3) [Vitamin D3] 50 MCG Capsule) PO SCH (09:00)
[2021-08-23] MEDS ORDERED: ASPIRIN EC 81 MG TAB PO SCH (09:00)
[2021-08-23] MEDS ORDERED: AMLODIPINE 10 MG TAB PO SCH (09:00)
[2021-08-23] MEDS ORDERED: ISOSORBIDE MONO SR 30 MG TAB PO SCH (09:00)
[2021-08-23 12:04] VITALS: BP 154/72; TEMP 97.5
[2021-08-23] MEDS ORDERED: [UNRECOGNIZED DRUG - OTHER] PO SCH (18:00)
[2021-08-23] MEDS ORDERED: EZETIMIBE PO SCH (18:00)
[2021-08-23] MEDS ORDERED: ROSUVASTATIN CALCIUM PO SCH (18:00)
[2021-08-24] MEDS ORDERED: PANTOPRAZOLE 40MG TABLET PO SCH (06:30)
--- NOTE | 2021-08-25 15:35 | CON ---
Date of Consultation: 08/23/2021 Reason For Consultation: Chest pain. History Of Present Illness: A 61-year-old male with a history of coronary artery disease, status pos t recent RCA and left circumflex stents. As he kept complaining of chest pain on minimal activities, he was directed to the hospital to rule out unstable angina. Past Medical History: History of coronary artery disease, diabetes, dyslipidemia, and chronic renal failure. Medications: Refer to reconciliation sheet for detailed list. Allergies: NO KNOWN DRUG ALLERGIES. Family History: No premature coronary artery disease or cancer. Social History: Does not smoke or drink. Does not use any drugs. Review of Systems: All systems reviewed were negative except for what mentioned in HPI. Physical Examination: Vital Signs: Reviewed. Head and Neck: Pupils are equal, reactive to light. Intact eye movements. No JVD. No cervical lym phadenopathy. Neck is supple. Thyroid is not enlarged. Lungs: Clear to auscultation bilaterally. No rhonchi, rales, or crackles. No accessory muscle use. Heart: Regular rate and rhythm. No extra sounds. Abdomen: Soft and nontender. Bowel sounds positive. No organomegaly. No masses or hernia. No rig idity or rebound. Extremities: No edema, clubbing, or cyanosis. Intact pulses. Skin: No rashes. Neurologic: Alert, awake, and oriented x3. No acute focal deficits appreciated. Investigations: Labs were reviewed. Assessment And Recommendations: Coronary artery disease with chest pain, status post heart catheteri zation. The stents both are open, but might be slight narrowing of the ostium of the right coronary artery stent, however, could not use much contrast to evaluate. Recommend exercise nuclear stress te st if there is a filling defect and we will plan for possible shockwave . SR/MODL Voice ID: [id number] Report ID: [id number]
== END 2021-08-23 13:45 | disposition home or self-care (01) ==
LOC: ER 09:29 → ERHOLD 13:28 → 2ND 18:35 → OBSVTOIN 19:32 → INTOOBSV 19:32
PROVIDERS: ADMIT Family Medicine; ATTEND Family Medicine
DX: R07.9 Chest pain, unspecified (principal); I12.9 Hypertensive chronic kidney disease with stage 1 through stage 4 chronic kidney disease, or unspecified chronic kidney disease; E11.22 Type 2 diabetes mellitus with diabetic chronic kidney disease; N18.30 Chronic kidney disease, stage 3 unspecified; E87.5 Hyperkalemia; R79.89 Other specified abnormal findings of blood chemistry; D63.8 Anemia in other chronic diseases classified elsewhere; D50.9 Iron deficiency anemia, unspecified; K21.9 Gastro-esophageal reflux disease without esophagitis; M10.9 Gout, unspecified; E78.5 Hyperlipidemia, unspecified; Z20.822 Contact with and (suspected) exposure to COVID-19
CPT/HCPCS: 93005; 85025 ×2; 80048 ×2; 36415; 83735 ×2; 84132; 85610; 82947 ×3; 80076; 84443; 83036; 84484; 84439; 80053; 83880; 71045; 93454; 96375; 96374; 99285; U0003; C1893; J0610; J1644 ×2; J2250; J3010; J2270; G0378 ×4; J7042; J7040; J7030; J2405; J1580

== ENCOUNTER 2021-08-26 01:13 | Observation (INO) | payer BC ==
--- OUTSIDE RECORDS SUMMARY | 2021-08-26 01:19 | XMS REPORT | Continuity of Care Document ---
:1960 Author Organization [facility] t Address [address] [place] [address] Care Team Providers Name Role Phone VÁSQUEZBLANQUITA [...] Number Effective Date Expiration Date S ource [facility] - [id number] 2021 00:00:00 OUT OF STATE BCBS OS [id number] 2021 00:00:00 POS/PPO/EPO Problems Condition Condition Condition Status Onset Resolution Last Treating Co mments Source Name Details Category Date Date Treatment Clinician Date Hyponatrem Hyponatrem Disease Active 2020-09 U nivers ia ia 0-07 ity of syndrome syndrome 00:00: [place] [address] Medical Branch Allergies, Adverse Reactions, Alerts Allergy Allergy Status Severity Reaction(s) Onset Inactive Treating Comm ents Source Name Type Date Date Clinician NO KNOWN Drug Active Univers ALLERGIE Class ity of S [facility] NO KNOWN Allergy Active [facility] ALLERGIE S Social History Social Habit Start Date Stop Date Quantity Comments Source Exposure to Not sure University SARS-CoV-2 [place] [facility] (event) Branch Tobacco use and 2021-06-192021-06-19 Never used Universit y of exposure 00:00:00 00:00:00 [facility] Alcohol intake 2021-06-19 2021-06-19 Ex-drinker [facility] 00:00:00 00:00:00 (finding) [facility] Sex Ass[birth year] At [birth year] Universit y of 00:00:00 00:00:00 [facility] Smoking Status Start Date Stop Date Source Never smoker [facility] Medications Ordered Filled Start Stop Current Ordering Indication Dosage Frequency Signature Comments Components Source Medication Medication Date Date Medication? Clinician (SIG) Name Name amLODIPine 2020-09 Yes [id number] 5mg Take 1 U nivers 5 mg tablet 0-10 tablet by ity of 00:00: mouth [place] 00 daily. Medical Branch cholecalcif 2020-09 Yes [id number] 2000U Take 2 Univers savanah, 0-10 tablets by ity of vitamin D3, 00:00: mouth [place] 25 mcg 00 daily. Medical (1,000 Branch unit) tablet lisinopriL 2020-09 Yes [id number] 5mg Take 1 U nivers 5 mg tablet 0-10 tablet by ity of 00:00: mouth [place] 00 daily. Medical Branch amLODIPine 2020-09 Yes [id number] 5mg Take 1 U nivers 5 mg tablet 0-10 tablet by ity of 00:00: mouth [place] 00 daily. Medical Branch cholecalcif 2020-09 Yes [id number] 2000U Take 2 Univers savanah, 0-10 tablets by ity of vitamin D3, 00:00: mouth [place] 25 mcg 00 daily. Medical (1,000 Branch unit) tablet lisinopriL 2020-09 Yes [id number] 5mg Take 1 U nivers 5 mg tablet 0-10 tablet by ity of 00:00: mouth [place] 00 daily. Medical Branch febuxostat 2020-09 Yes [id number] 40mg 40 mg, U nivers (ULORIC) 0-09 Oral, ity of tablet 40 14:00: DAILY, [place] mg 00 First dose Medical on Sat Branch 06/21/21 at 0900, Until Discontinu ed, Routine lisinopriL 2020-09 Yes [id number] 5mg 5 mg, Un chani (PRINIVIL,Z 0-09 [...] by mouth ity of tablet 11:52: daily. [place] [address] Medical Branch levocetiriz 2020-09 Yes 5mg Take 5 mg U nivers ine 5 mg 0-09 by mouth ity of tablet 11:52: daily. [place] [address] Medical Branch rosuvastati 2020-09 Yes 40mg Take 40 mg Univers n 40 mg 0-09 by mouth ity of tablet 11:52: every [place] [address] evening. Medical With Branch dinner linagliptin 2020-09 [...] by mouth ity of tablet 11:52: daily. [place] [address] Medical Branch levocetiriz 2020-09 Yes 5mg Take 5 mg U nivers ine 5 mg 0-09 by mouth ity of tablet 11:52: daily. [place] [address] Medical [place] rosuvastati 2020-09 Yes 40mg Take 40 mg [...] 0800 am and 1400 febuxostat 2020-09 Yes [id number] 40mg Take 1 U nivers 40 mg 0-09 tablet by ity of tablet 00:00: mouth [place] 00 daily. Medical Branch febuxostat 2020-09 Yes [id number] 40mg Take 1 U nivers 40 mg 0-09 tablet by ity of tablet 00:00: mouth [place] 00 daily. Medical Branch NaCl 0.9% 2020-09 Yes [id number] IV Unive rs (NS) IV 0-08 Infusion, ity of infusion 19:15: at 100 [place] 00 mL/hr, Medical CONTINUOUS Branch , Starting on Wed06/20/21 at 1415, Until Discontinu ed, STAT amLODIPine 2020-09 Yes [id number] 5mg 5 mg, Un chani (NORVASC) 0-08 [...] Discontinu ed, Routine NaCl 0.9% 2020-09- No [id number] IV Univ ers (NS) IV 0-08 10-08 Infusion, ity of infusion 13:30: 19:02 at 75 [place] 00 :45 mL/hr, Medical CONTINUOUS Branch , Starting on Wed06/20/21 at 0830, Until Wed06/20/21 at 1402, STAT heparin 2020-09 Yes 5000U 5,000 Univers (porcine) 0-08 Units, ity of injection 11:00: [place] 5,000 Units 00 , Q8H, [facility] First dose Branch on Wed06/20/21 at 0600, Until Discontinu ed, Routine rosuvastati 2020-09 Yes [id number] 40mg 40 mg, Univers n (CRESTOR) 0-08 Oral, QHS, it y of tablet 40 02:00: [place] 00 on [facility] 06/19/21 at Branch 2100, Until Discontinu ed, Routine ferrous 2020-09 Yes [id number] 325mg 325 mg, Un chani sulfate 0-08 Oral, BID, ity of tablet 325 01:00: First dose [place] mg 00 on [facility] 06/19/21 at Branch 2000, Until Discontinu ed, Routine hydrALAZINE 2020-09- No [id number] 50mg 50 mg, Univers (APRESOLINE 0-08 10-08 Oral, BID, i ty of ) tablet 50 01:00: 02:31 1 dose, [place] mg 00 :00 First dose Medical (after Branch last modificati on) on [facility] 06/19/21 at 2000, Routine NaCl 0.9% 2020-09- No [id number] IV Univ ers (NS) IV 0-07 10-08 [...] KIT) 01 Starting Medical injection 1 on [facility] Branch mg 06/19/21 at 1005, Until Discontinu ed, LOOB, Blood Glucose < or = 70 mg/dL and patient is unable to swallow or has mental changes. dextrose 50 2020-09 Yes 25mL 25 mL, Univ ers % in water 0-07 Slow IV ity of (D50W) 15:05: Push, PRN, [place] injection 01 Starting Medica l 25 mL on [facility] Branch 06/19/21 at 1005, Until Discontinu ed, LOBO, Blood Glucose < or = 70 mg/dL and patient is unable to swallow or has mental status changes. cholecalcif 2020-09 Yes [id number] 2000U 2,000 Univers [place] 0-07 Units, ity of (vitamin 14:45: Oral, [place] D3) tablet 00 DAILY, Medical 2,000 Units First dose Br anch on [place] 06/19/21 at 0945, Until Discontinu ed, Routine acetaminoph 2020-09 Yes 650mg 650 mg, Un chani en 0-07 Oral, ity of (TYLENOL) 14:18: Q6HPRN, [place] tablet 650 47 Starting Medic al mg [...] Immunizations Ordered Filled Immunization Date Status Comments [facility] e Immunization Name Name Pneumococcal 2021-06-21 Completed [place] Polysaccharide, 00:00:00 [place] ical PPSV23 (PNEUMOVAX) Branch Pneumococcal 2021-06-21 Completed [place] f Polysaccharide, 00:00:00 [place] [facility] ical PPSV23 (PNEUMOVAX) Branch Influenza Virus 2020-07-14 Completed Universit y of Vaccine Quad IM 00:00:00 [place] ical Multi-dose 6+ MO Branch Influenza Virus 2020-07-14 Completed Universit y of Vaccine Quad IM 00:00:00 [place] ical Multi-dose 6+ MO Branch Vital Signs Vital Name Observation Time Observation Value Comments Source HEIGHT 2021-08-14 00:15:00 172.7 cm WEIGHT 2021-08-14 00:15:00 79.379 kg HEIGHT 2021-08-13 23:00:00 172.7 cm WEIGHT 2021-08-13 23:00:00 79.379 kg HEIGHT 2021-08-14 00:15:00 172.7 cm WEIGHT 2021-08-14 00:15:00 79.379 kg HEIGHT 2021-08-13 23:00:00 172.7 cm WEIGHT 2021-08-13 23:00:00 79.379 kg Heart rate 2021-06-21 14:00:00 88 /min [facility] Respiratory rate 2021-06-21 14:00:00 13 /min [facility] Oxygen saturation in 2021-06-21 14:00:00 98 /min [facility] Arterial blood by [facility] [place] [facility] Pulse oximetry Branch Systolic blood 2021-06-21 13:02:00 151 mm[Hg] Univer sity [facility] Diastolic blood 2021-06-21 13:02:00 75 mm[Hg] [facility] [place] [facility] Body temperature 2021-06-21 13:02:00 36.22 Yadira Univ [facility] Body weight 2021-06-20 09:51:00 82.464 kg [facility] BMI 2021-06-20 09:51:00 27.64 kg/m2 [facility] Body height 2021-06-19 20:00:00 172.7 cm [facility] Procedures Procedure Date / Time Performing Clinician Source Performed POCT GLUCOSE (AUTOMATED) 2021-06-21 13:21:00 Magdaleno Hughes [facility] MAGNESIUM 2021-06-21 10:35:00 [place], [facility] OSMOLALITY URINE 2021-06-21 10:35:00 Delvis [facility] RENAL PANEL 2021-06-21 10:35:00 [facility]ROL[facility]EL 2021-06-21 10:35[id number]NA, K, CL, CO2[facility] POTASSIUM, URINE RANDOM 2021-06-21 10:35:00 Delvis, [facility] SODIUM, URINE RANDOM 2021-06-21 10:35:00 Delvis, [facility] ELECTROLYTES PANEL 2021-06-21 01:20:00 [facility] ([id number]NA, K, CL, CO2) [facility] POCT GLUCOSE (AUTOMATED) 2021-06-21 01:14:00 Magdaleno Hughes [facility] POCT GLUCOSE (AUTOMATED) 2021-06-20 22:05:00 Magdaleno Hughes [facility] ELECTROLYTES PANEL 2021-06-20 17:24:00 [facility] ([id number]NA, K, CL, CO2) Medical [place] OSMOLALITY URINE 2021-06-20 10:13:00 Delvis, [facility] POTASSIUM, URINE RANDOM 2021-06-20 10:13:00 Delvis, [facility] SODIUM, URINE RANDOM 2021-06-20 10:13:00 Delvis, [facility] MAGNESIUM 2021-06-20 10:12:00 Delvis, [facility] VITAMIN B12, LEVEL 2021-06-20 10:12:00 Magdaleno Hughes [facility] FOLATE 2021-06-20 10:12:00 Ted [facility] RENAL PANEL 2021-06-20 10:12:00 Delvis, [facility] VITAMIN D, 25-OH 2021-06-20 10:12:00 Ted [facility] ELECTROLYTES PANEL 2021-06-20 03:25:00 Delvis, [facility] ([id number])(NA, K, CL, CO2) [facility] POCT GLUCOSE (AUTOMATED) 2021-06-20 02:30:00 Magdaleno Hughes [facility] POCT GLUCOSE (AUTOMATED) 2021-06-20 01:12:00 Magdaleno Hughes [facility] POCT GLUCOSE (AUTOMATED) 2021-06-19 22:34:00 Magdaleno Hughes [facility] ELECTROLYTES PANEL 2021-06-19 21:21:00 [facility] ([id number][facility]NA, K, CL, CO2) [facility] POCT GLUCOSE (AUTOMATED) 2021-06-19 16:58:00 Magdaleno Hughes [facility] POCT GLUCOSE (AUTOMATED) 2021-06-19 14:31:00 Magdaleno Hughes [facility] PHOSPHORUS 2021-06-19 14:17:00 [place], [facility] CREATINE KINASE 2021-06-19 14:17:00 [facility]IC ACID 2021-06-19 14:17:00 Delvis, [facility] MAGNESIUM 2021-06-19 14:17:00 [facility] FERRITIN SERUM 2021-06-19 14:17:00 Magdaleno Hughes [facility] OSMOLALITY, SERUM OR 2021-06-19 14:17:00 Delvis [facility] PLASMA [facility] OSMOLALITY URINE 2021-06-19 14:17:00 Delvis [facility] TROPONIN I 2021-06-19 14:17:00 Delvis [facility] THYROID STIMULATING 2021-06-19 14:17:00 Magdaleno Hughes [facility] HORMONE [facility] COMP. METABOLIC PANEL 2021-06-19 14:17:00 Michelle Edmondson [facility] ([id number]) [facility] IRON PANEL 2021-06-19 14:17:00 [facility] DIFF CONSULT 2021-06-19 14:17:00 [facility] INTER[facility] CBC WITH DIFF 2021-06-19 14:17:00 Delvis [facility] GLYCOSYLATED HEMOGLOBIN 2021-06-19 14:17:00 Ted [facility] (A1C) [facility] URINALYSIS MICROSCOPIC 2021-06-19 14:17:00 [facility] RETICULOCYTES AUTOMATED 2021-06-19 14:17:00 Magdaleno Hughes [facility] N-TERMINAL PRO-BNP 2021-06-19 14:17:00 [facility] POTASSIUM, URINE RANDOM 2021-06-19 14:17:00 Michelle Edmondson [facility] SODIUM, URINE RANDOM 2021-06-19 14:17:00 Michelle Edmondson [facility] PROTEIN CREAT RATIO URINE 2021-06-19 14:17:00 Michelle Edmondson [facility] Branch COVID-19 (ID NOW RAPID 2021-06-19 14:17:00 [facility] [place] LAB ONLY COVID 2021-06-19 14:17:00 Michelle Edmondson [place] INTERPRETATION [facility] PATIENT FINANCIAL 2021-06-19 13:01:56 [facility] [place] [facility] NO SHOW OR MISSED 2021-06-19 13:01:37 Doctor Unassigned, [facility] APPOINTMENT POLICY [place] [facility] h ACKNOWLEDGEMENT NOTICE OF PRIVACY 2021-06-19 13:01:16 Doctor Unassigned, [facility] PRACTICES [place] [facility] CONSENT/REFUSAL FOR 2021-06-19 13:01:02 [facility], [facility] DIAGNOSIS AND TREATMENT [place] [facility] ASSIGNMENT OF BENEFITS 2021-06-19 13:00:44 Doctor Unassigned, Un [facility] [place] [facility] Encounters Start End Encounter Admission Attending Care Care Encounter Source Date/Time Date/Time Type Type Clinicians Facility Department ID 2021-07-15 Inpatient [facility] [id number] Univers 04:45:31 MAGDALENO david [facility] 2021-08-13 2021-08-15 [facility] [id number] [facility] 22:46:00 14:50:00 MAHBOOB 2021-08-13 2021-08-13 Outpatient BCM BC [id number] [facility] 00:00:00 23:59:00 Yumi Medicin e 2021-07-08 2021-07-08 Outpatient [facility] [id number] [place] 00:00:00 00:00:[address] 2021-06-23 2021-06-23 Transition Siva Cantu [id number] Univers 00:00:00 00:00:00 of Care Pablo Davis [id number] it[place] [id number] [place] [id number] [place] [id number] Branch 2021-06-19 2021-06-21 [facility] [id number] Univers 08:50:00 11:15:00 Encounter Magdaleno Sexton [id number] ity of [place] [id number] [facility] [id number] Medi dharmesh 080 Branch 2021-06-13 2021-06-13 Outpatient NAUTIYAL, [facility] [id number] [place] 00:00:00 00:00:00 KIRTAN [address] 2021-05-16 2021-05-16 Outpatient NAUTIYAL, [facility] [id number] [place] 00:00:00 00:00:00 KIRTAN [address] 2021-04-18 2021-04-18 Outpatient NAUTIYAL, [facility] [id number] [place] 00:00:00 00:00:00 KIRTAN [address] 2021-03-21 2021-03-21 Outpatient NAUTIYAL, [facility] [id number] [place] 00:00:00 00:00:00 KIRTAN [address] 2021-02-21 2021-02-21 Outpatient NAUTIYAL, [facility] [id number] [place] 00:00:00 00:00:00 KIRTAN [address] 2021-01-17 2021-01-17 Outpatient NAUTIYAL, [facility] [id number] [place] 00:00:00 00:00:00 KIRTAN [address] 2020-12-20 2020-12-20 Outpatient NAUTIYAL, [facility] [id number] [place] 00:00:00 00:00:00 KIRTAN [address] 2020-12-12 2020-12-12 Outpatient ROBBEN, [facility] [id number] [place] 00:00:00 00:00:00 ED [address] 2020-11-21 2020-11-21 Outpatient [facility] [id number] [place] 00:00:00 00:00:[address] 2020-11-15 2020-11-15 Outpatient NAUTIYAL, [facility] [id number] [place] 00:00:00 00:00:00 KIRTAN [address] 2020-10-11 2020-10-11 Outpatient NAUTIYAL, [facility] [id number] [place] 00:00:00 00:00:00 KIRTAN [address] 2020-09-12 2020-09-12 Outpatient NAUTIYAL, [facility] [id number] [place] 00:00:00 00:00:00 KIRTAN [address] 2020-08-16 2020-08-16 Outpatient NAUTIYAL, [facility] [id number] [place] 00:00:00 00:00:00 KIRTAN [address] 2020-08-06 2020-08-06 Outpatient NAUTIYAL, [facility] [id number] [place] 00:00:00 00:00:00 KIRTAN [address] 2020-07-19 2020-07-19 Outpatient NAUTIYAL, [facility] [id number] [place] 00:00:00 00:00:00 KIRTAN [address] 2020-06-21 2020-06-21 Outpatient NAUTIYAL, [facility] [id number] [place] 00:00:00 00:00:00 KIRTAN [address] 2020-05-24 2020-05-24 Outpatient NAUTIYAL, [facility] [id number] [place] 00:00:00 00:00:00 KIRTAN [address] 2020-04-26 2020-04-26 Outpatient NAUTIYAL, [facility] [id number] [place] 00:00:00 00:00:00 KIRTAN [address] 2020-03-22 2020-03-22 Outpatient NAUTIYAL, [facility] [id number] [place] 00:00:00 00:00:00 KIRTAN [address] 2020-02-23 2020-02-23 Outpatient NAUTIYAL, [facility] [id number] [place] 00:00:00 00:00:00 KIRTAN [address] 2020-02-02 2020-02-02 Outpatient NAUTIYAL, [facility] [id number] [place] 00:00:00 00:00:00 KIRTAN [address] 2020-01-26 2020-01-26 Outpatient NAUTIYAL, [facility] [id number] [place] 00:00:00 00:00:00 KIRTAN [address] 2019-12-29 2019-12-29 Outpatient NAUTIYAL, [facility] [id number] [place] 00:00:00 00:00:00 KIRTAN [address] 2019-11-24 2019-11-24 Outpatient MIRA Francis [facility] [id number] [place] 00:00:00 00:00:00 PEREZ [address] Results Test Description Test Time Test Comments Results Result Comments Source POCT-GLUCOSE METER 2021-08-15 11:33:36 Test Item Value Reference Range Interpretation Comme nts POC-GLUCOSE METER (BEAKER) 132 mg/dL 70-110 H : TESTED AT [facility] [address] [facility] (test code = 1538) [place], [address]: Bodywork Therapist/Techni doyle ID = [id number] for Anne Gibson POCT-GLUCOSE [id number] 06:03:47 Test Item Value Reference Range Interpretation Comments POC-GLUCOSE METER 121 mg/dL 70-110 H : TESTED A T [facility] [address] (BEAKER) (test code = [facility], 1538) 11529: Bodywork Therapist/Techni doyle ID = [id number] for UG RENEE PEDRO BASIC METABOLIC [id number] 06:01:00 Test Item Value Reference Range Interpretation [...] S NOT APPLICABLE FOR DIALYSIS PATIEN TS. Bodywork Therapist ID - JEAN CARLOS GPOCT-GLUCOSE [id number] 21:05:06 Test Item Value Reference Range Interpretation Comments POC-GLUCOSE METER 115 mg/dL 70-110 H : TESTED A T [facility] 67[address] (BEAKER) (test code = [facility], 1538) 79790: Bodywork Therapist/Techni doyle ID = [id number] for PEDRO SCHWAB POCT-GLUCOSE [id number] 19:02:49 Test Item Value Reference Range Interpretation Comments POC-GLUCOSE METER 144 mg/dL 70-110 H : TESTED A T [facility] 67[address] (BEAKER) (test code = [facility], 1538) 06676: Bodywork Therapist/Techni doyle ID = [id number] for Belen Miner POCT-GLUCOSE [id number] 16:51:49 Test Item Value Reference Range Interpretation Comments POC-GLUCOSE METER 185 mg/dL 70-110 H : TESTED A T [facility] 67[address] (BEAKER) (test code = [facility], 1538) 90944: Bodywork Therapist/Techni doyle ID = [id number] for Re Adriana jefferson [facility], MULTI, PHARM, [id number] 15:15:00Unlisted Reason for Exam - Click Yes and Enter Reason Below->No [facility] CENTERName: JULIO MARIE : 1960 Sex: MFINAL REPORT PROCEDURE: MYOCARDIAL PERFUSION SPECT IMAGING (Rest/Stress)CPT CODE: 27180 INDICATION: CAD risk, intermediate risk, Chest pain [...] MDReport Verified Date/Time: 08/14/2021 15:15:39 Reading Location: [address] Reading Room HEMOGLOBIN [id number] 10:49:00 Test Item Value Reference Range Interpretation Comments HEMOGLOBIN A1C (LIVE) (test code = 5.5 % 4.3-6.1 368) POCT-GLUCOSE [id number] 09:34:32 Test Item Value Reference Range Interpretation Comments POC-GLUCOSE METER 145 mg/dL 70-110 H : TESTED A T [facility] 67[address] (BEJANAI) (test code = [facility], 1538) 50803: Bodywork Therapist/Techni doyle ID = [id number] for ROSSI FISCHER HIGH SENSITIVITY TROPONIN [id number] 05:11:36 Test Item Value Reference Range Interpretation Comments HIGH SENSITIVITY 26 pg/ml See_Comment [Automated message] TROPONIN I (test code = The system which 1058120) generated this result transmitted ref erence range: <=35. Th e reference range was not used to int erpret this result as normal/abnormal . Bodywork Therapist ID - GISELL MThe [employer] STAT High Sensitivity Troponin-I results should be used in conjunction with other diagnostic information such as ECG, clinical observations and information, and patient symptoms to aid in the diagnosis of AR.LIPID [id number] 05:07:50 Test Item Value Reference Range Interpretation [...] Borderline 130-159 High 160-189 Very High >=190 Bodywork Therapist ID - GISELL MBASIC METABOLIC [id number] 05:07:49 Test Item Value Reference Range Interpretation [...] S NOT APPLICABLE FOR DIALYSIS PATIEN TS. Bodywork Therapist ID - GISELL [id number] 05:07:49 Test Item Value Reference Range Interpretation Comments MAGNESIUM (BEAKER) (test code = 2.2 mg/dL 1.6-2.6 627) Bodywork Therapist ID - GISELL MCBC W/PLT COUNT & AUTO [id number] 04:44:58 Test Item Value Reference Range Interpretation [...] PERCENT (BEAKER) (test code = 2801) PROTHROMBIN [id number] 00:46:16 Test Item Value Reference Range Interpretation Comments PROTIME (BEAKER) 14.4 seconds 11.9-14.2 H (test code = 759) INR (BEAKER) (test 1.14 See_Comment [Automat ed message] code = 370) The system Thomas-Krenn generated this result transmitted ref erence range: <=5.90. The reference range was not used to int erpret this result as normal/abnormal . RECOMMENDED COUMADIN/WARFARIN INR THERAPY RANGESSTANDARD DOSE: 2.0 - 3.0 Includes: PROPHYLAXIS forvenous thrombosis, systemic embolization; TREATMENT for venous thrombosis and/or pulmonary embolus.HIGH RISK: Target INR is 2.5-3.5 for patients with mechanical heart valves.SARS-COV2/RT-PCR ([facility]) 2021-08-14 00:26:40 Test Item Value Reference Range Interpretation Comments SARS-COV2/RT-PCR Negative Negative The SARS-Co V-2 target (test code = nucleic acids a re not [id number]) detected in thi s specimen. Negative result [...] revoked sooner. Fact Sheet for Healthcare Providers: https://www.LinkCloud/Documents/Xpert%20Xpress%20SARS%20CoV-2/Fact%20Sheets/302-3802%20SARS-COV -2%20HEALTHCARE%20PROVIDERS%20FACT%20SHEET.pdf Fact Sheet for Healthcare Patients: https://www.Webtrekk/Documents/Xpert %20Xpress%20SARS%20CoV-2/Fact%20Sheets/302-3801%71KQBK-HAN-7%20PATIENT%20FACT%20 SHEET.pdfRAD, CHEST, 1 VIEW, NON [id number] 00:12:00Reason for exam:- >CPShould this be performed at the bedside?->Yes [facility] CENTERName: JULIO MARIE : 1960 Sex: MFINAL [...] MDReportVerified Date/Time: 08/14/2021 00:12:28 HIGH SENSITIVITY TROPONIN [id number] 23:42:44 Test Item Value Reference Range Interpretation Comments HIGH SENSITIVITY 38 pg/ml See_Comment H [Automated message] TROPONIN I (test code = The system which 1668107) generated this result transmitted ref erence range: <=35. Th e reference range was not used to int erpret this result as normal/abnormal . Bodywork Therapist ID - BSThe [employer] STAT High Sensitivity Troponin-I results should be used in conjunctionwith other diagnostic information such as ECG, clinical observations and information, and patient symptoms to aid in the diagnosis of AR.PT/[id number] 23:37:54 Test Item Value Reference Range Interpretation [...] for patients with mechanical heart valves.COMPREHENSIVE METABOLIC [id number] 23:36:03 Test Item Value Reference Range Interpretation [...] S NOT APPLICABLE FOR DIALYSIS PATIEN TS. Bodywork Therapist ID - BSCBC W/PLT COUNT & AUTO [id number] 23:13:22 Test Item Value Reference Range Interpretation [...] Interpretation Comments POCT GLU (test code = 2920141006) 99 mg/dL 70-110 Lab Interpretation (test code = Normal 39443-6) [facility] 12[facility]40:16 Test Item Value Reference Range Interpretation Comments MAGNESIUM (test code = 4793090594) 2.3 mg/dL 1.7-2.4 Lab Interpretation (test code = Normal 61130-6) [facility] [id number] 12:40:15 Test Item Value Reference Range Interpretation Comments ALBUMIN (test code = 3.6 g/dL 3.5-5.0 2133649443) CALCIUM (test code = 8.9 mg/dL 8.6-10.6 5345621881) CO2 TOTAL (test code = 23 mmol/L 23-31 7931251246) CREATININE (test code = 1.36 mg/dL 0.60-1.25 H 3855634925) GLUCOSE (test code = 87 mg/dL 70-110 0672612106) K (test code = 4.2 mmol/L 3.5-5.0 9289866140) NA (test code = 135 mmol/L 135-145 9115370107) BUN (test code = 34 mg/dL 7-23 H 3590017719) PHOSPHORUS (test code = 3.9 mg/dL 2.5-5.0 3922101709) eGFR (test code = mL/min/1.73m2 7704824290) ALYSIA (test code = ALYSIA) Association of [...] tests). Lab Interpretation Abnormal (test code = 11140-9) [facility] (96899)(NA, K, CL, CO2) 2021-06-21 12:39:35 Test Item Value Reference Range Interpretation Comments NA (test code = 3819136905) 135 mmol/L 135-145 K (test code = 9240965078) 4.2 mmol/L 3.5-5.0 CL (test code = 8250271113) 107 mmol/L 98-108 CO2 TOTAL (test code = 2579249527) 23 mmol/L 23-31 AGAP (test code = 2783043455) 2-16 Lab Interpretation (test code = Normal 19976-6) [facility] (48357)(NA, K, CL, CO2) 2021-06-21 02:05:41 Test Item Value Reference Range Interpretation Comments NA (test code = 1010877250) 130 mmol/L 135-145 L K (test code = 4730005065) 4.2 mmol/L 3.5-5.0 CL (test code = 1094013945) 99 mmol/L 98-108 CO2 TOTAL (test code = 1681287567) 23 mmol/L 23-31 AGAP (test code = 6042207495) 2-16 Lab Interpretation (test code = Abnormal 29715-4) [facility] GLUCOSE (AUTOMATED)2021-06-21 01:32:17 Test Item Value Reference Range Interpretation Comments POCT GLU (test code = 2045005564) 163 mg/dL 70-110 H Lab Interpretation (test code = Abnormal 73846-4) [facility] GLUCOSE (AUTOMATED)2021-06-21 01:32:11 Test Item Value Reference Range Interpretation Comments POCT GLU (test code = 9530302005) 111 mg/dL 70-110 H Lab Interpretation (test code = Abnormal 17341-8) [facility] ClinicDIFF CONSULT [id number] 19:50:07 ABSOLUTE LYMPHOPENIA. NORMOCYTIC NORMOCHROMIC ANEMIA. PLATELETS ARE UNREMARKABLE.[facility] Clinic[facility] B12, [id number] 19:49:05 Test Item Value Reference Range Interpretation Comments VIT B12 (test code = 687 pg/mL 240-930 0247861264) ALYSIA (test code = ALYSIA) Biotin has been reported to cause a positive bias, interpret results relative to patient's use of biotin. Lab Interpretation (test Normal code = 70508-8) [facility] Clinic[facility] D, [id number] 19:16:59 Test Item Value Reference Range Interpretation Comments VIT D 25OH (test code = 17 ng/mL 25-80 L 08923-3) ALYSIA (test code = ALYSIA) Deficiency: <20 ng/mLInsufficiency: 20-24 ng/mLOptimal: 25-80 ng/mL Lab Interpretation (test Abnormal code = 52117-7) [facility] (18619)(NA, K, CL, CO2) 2021-06-20 18:30:32 Test Item Value Reference Range Interpretation Comments NA (test code = 4711025955) 127 mmol/L 135-145 L K (test code = 2134453202) 4.4 mmol/L 3.5-5.0 CL (test code = 1897012917) 97 mmol/L 98-108 L CO2 TOTAL (test code = 9870471905) 20 mmol/L 23-31 L AGAP (test code = 8563182869) 2-16 Lab Interpretation (test code = Abnormal 22081-7) [facility]2021-06-20 18:02:33 Test Item Value Reference Range Interpretation Comments POCT GLU (test code = 9332924053) 118 mg/dL 70-110 H Lab Interpretation (test code = Abnormal 84229-1[facility] 18:02:33 Test Item Value Reference Range Interpretation Comments POCT GLU (test code = 7106432234) 181 mg/dL 70-110 H Lab Interpretation (test code = Abnormal 12841-0) [facility]2021-[facility]-08 16:36:31 Test Item Value Reference Range Interpretation Comments FOLATE SER (test code = >20.0 3.0-20.0 H Biot in has been 0507726674) reported to cau se a positive bias, interpret resul ts relative to patient's use o f biotin. Lab Interpretation (test Abnormal code = 09833-0) [facility] [id number] 12:37:06 Test Item Value Reference Range Interpretation Comments ALBUMIN (test code = 3.8 g/dL 3.5-5.0 7761185942) CALCIUM (test code = 8.7 mg/dL 8.6-10.6 1037746941) CO2 TOTAL (test code = 20 mmol/L 23-31 L 6951844751) CREATININE (test code = 1.64 mg/dL 0.60-1.25 H 0508605244) GLUCOSE (test code = 82 mg/dL 70-110 4369624135) K (test code = 4.1 mmol/L 3.5-5.0 9190167778) NA (test code = 126 mmol/L 135-145 L 0807587551) BUN (test code = 43 mg/dL 7-23 H 3342277517) PHOSPHORUS (test code = 4.2 mg/dL 2.5-5.0 1788871889) eGFR (test code = mL/min/1.73m2 7135881454) ALYSIA (test code = ALYSIA) Association of [...] tests). Lab Interpretation Abnormal (test code = 56567-5) [facility]2021-10-08 12:37:06 Test Item Value Reference Range Interpretation Comments MAGNESIUM (test code = 1916605103) 2.3 mg/dL 1.7-2.4 Lab Interpretation (test code = Normal 46259-6) [facility] GLUCOSE (AUTOMATED)2021-06-20 12:01:50 Test Item Value Reference Range Interpretation Comments POCT GLU (test code = 5550525001) 114 mg/dL 70-110 H Lab Interpretation (test code = Abnormal 62721-9) [facility] GLUCOSE (AUTOMATED)2021-06-20 04:48:58 Test Item Value Reference Range Interpretation Comments POCT GLU (test code = 9413885483) 137 mg/dL 70-110 H Lab Interpretation (test code = Abnormal 96925-1) [facility] ClinicELECTROTES PANEL (85202)(NA, K, CL, CO2) 2021-06-20 04:41:11 Test Item Value Reference Range Interpretation Comments NA (test code = 3940036895) 122 mmol/L 135-145 L K (test code = 2109759013) 4.0 mmol/L 3.5-5.0 CL (test code = 9063925011) 94 mmol/L 98-108 L CO2 TOTAL (test code = 2286662534) 20 mmol/L 23-31 L AGAP (test code = 9449678971) 2-16 Lab Interpretation (test code = Abnormal 27921-5) [facility] GLUCOSE (AUTOMATED)2021-06-20 02:04:20 Test Item Value Reference Range Interpretation Comments POCT GLU (test code = 0061543647) 166 mg/dL 70-110 H Lab Interpretation (test code = Abnormal 31428-7) [facility] ClinicELECTROL[facility]TES PAN[facility] (02961)(NA, K, CL, CO2) 2021-06-19 22:21:27 Test Item Value Reference Range Interpretation Comments NA (test code = 5393758795) 120 mmol/L 135-145 L K (test code = 1671978151) 4.3 mmol/L 3.5-5.0 CL (test code = 3162548878) 90 mmol/L 98-108 L CO2 TOTAL (test code = 4518269864) 22 mmol/L 23-31 L AGAP (test code = 0583934694) 2-16 Lab Interpretation (test code = Abnormal 24497-6) [facility] ClinicOSMOLALITY, SERUM OR [id number] 20:32:51 Test Item Value Reference Range Interpretation Comments OSMOLALITY (test code = See_Comment L [Au tomated message] 4220253934) The system [employer] generated this result transmitted ref erence range: 278 - 30 5 mOsm/kg. The reference range was not used to int erpret this result as normal/abnormal . Lab Interpretation (test Abnormal code = 48800-6) [facility] ClinicRETICULOCYTES [id number] 18:52:41 Test Item Value Reference Range Interpretation Comments RETIC Count Automated 4.16 % 0.59-2.24 H (test code = 9396204897) RETIC Absolute Count See_Comment H [Autom ated message] (test code = 3302474224) The system which generated this result transmitted ref erence range: 0.0260 - 0.1170 10*6/?L. The reference range was not used to int erpret this result as normal/abnormal . IRF % (test code = 24.00 % 2.00-19.10 H 7253690688) RETIC-HE (test code = 35.8 pg 27.3-36.4 2746970903) Lab Interpretation (test Abnormal code = 17056-3) [facility] ClinicFERRITIN [id number] 18:12:11 Test Item Value Reference Range Interpretation Comments FERRITIN (test code = 245.0 ng/mL 18.0-464.0 4082319064) ALYSIA (test code = ALYSIA) Biotin has been reported to cause a negative bias, interpret results relative to patient's use of biotin. Lab Interpretation (test Normal code = 38037-5) [facility] ClinicTHYROID STIMULATING [id number] 18:07:51 Test Item Value Reference Range Interpretation Comments TSH (test code = See_Comment [Automated message] 7312024670) The system [employer] generated this result transmitted ref erence range: 0.45 - 4 .70 mIU/L. The refe rence range was not u sed to interpret this result as normal/abnor mal. Lab Interpretation (test Normal code = 95761-8) [facility] ClinicIRON [id number] 17:46:47 Test Item Value Reference Range Interpretation Comments IRON (test code = 9937227107) 38 ug/dL 50-160 L TIBC (test code = 0419492389) 320 ug/dL 250-410 % FE SAT (test code = 6562077251) 12 % 20-50 L Lab Interpretation (test code = Abnormal 49941-5) [facility] ClinicCREATINE [id number] 17:37:28 Test Item Value Reference Range Interpretation Comments CK (test code = 3484833903) 204 U/L 33-194 H Lab Interpretation (test code = Abnormal 82374-9) [facility] ClinicGlycosylated Hemoglobin (A1C)2021-06-19 15:28:01 Test Item Value Reference Range Interpretation Comments HGB A1C (test code = 5.5 % 4.0-5.7 4548-4) ALYSIA (test code = ALYSIA) Reference RangesNormal: <5.7%Prediabetes: 5.7 - 6.4%Diabetes: > 6.5% Lab Interpretation (test Normal code = 73045-9) [facility] ClinicTROPONIN [id number] 15:23:11 Test Item Value Reference Interpretation Comments Range TROPONIN I (test 0.006 ng/mL See_Comment [Automated code = 0108024975) message] The system which generated this result [...] biotin. Lab Interpretation Normal (test code = 86904-1) [facility] ClinicN-TERMINAL [id number] 15:19:46 Test Item Value Reference Range Interpretation Comments NT-proBNP (test code 610 pg/mL See_Comment H [Autom ated = 1156322278) message] The system which generated this result transmitted reference range : <=125. The reference range was not used to interpret this result as normal/abnormal . ALYSIA (test code = ALYSIA) Biotin has been reported to cause a negative bias, interpret results relative to patient's use of biotin. Lab Interpretation Abnormal (test code = 31643-5) [facility] ClinicMAGNESIUM2021-10-07 15:12:30 Test Item Value Reference Range Interpretation Comments MAGNESIUM (test code = 8765478671) 2.2 mg/dL 1.7-2.4 Lab Interpretation (test code = Normal 74065-3) [facility]. METABOLIC PANEL (11350)2021-06-19 15:12:25 Test Item Value Reference Range Interpretation Comments NA (test code = 120 mmol/L 135-145 L 7322758359) K (test code = 4.3 mmol/L 3.5-5.0 5838662439) CL (test code = 87 mmol/L 98-108 L 6259206627) CO2 TOTAL (test code = 22 mmol/L 23-31 L 6504207047) AGAP (test code = 2-16 7491559089) BUN (test code = 47 mg/dL 7-23 H 4806545687) GLUCOSE (test code = 110 mg/dL 70-110 7504324295) CREATININE (test code = 1.74 mg/dL 0.60-1.25 H 7747439689) TOTAL BILI (test code = 0.6 mg/dL 0.1-1.2 4696055830) CALCIUM (test code = 9.3 mg/dL 8.6-10.6 5518358695) T PROTEIN (test code = 7.2 g/dL 6.3-8.2 7120575904) ALBUMIN (test code = 4.6 g/dL 3.5-5.0 5207299646) ALK PHOS (test code = 99 U/L 34-122 5095730702) ALTv (test code = 48 U/L 5-50 1742-6) AST(SGOT) (test code = 39 U/L 13-40 9488779915) eGFR (test code = mL/min/1.73m2 8815574212) ALYSIA (test code = ALYSIA) Association of [...] tests). Lab Interpretation Abnormal (test code = 63950-3) [facility] ClinicPHOSPHORUS2021-10-07 15:12:04 Test Item Value Reference Range Interpretation Comments PHOSPHORUS (test code = 9377841204) 4.4 mg/dL 2.5-5.0 Lab Interpretation (test code = Normal 58088-3) [facility] ClinicURIC [id number] 15:12:04 Test Item Value Reference Range Interpretation Comments URIC ACID (test code = 6911988443) 9.8 mg/dL 3.6-8.0 H Lab Interpretation (test code = Abnormal 99146-2) [facility] ClinicCB WITH [id number] 14:38:02 Test Item Value Reference Range Interpretation [...] RDW-SD (test code = 38.5 fL 38.5-51.6 32849-8) RDW-CV (test code = 12.1 % 12.1-15.4 788-0) PLT (test code = See_Comment [Automated 777-3) message] The sy stem which generated this result transmitted reference range : 150 - 328 10*3/ ?L. The reference r kathe was not used to interpret this result as normal/abnormal . MPV (test code = 10.0 fL 9.8-13.0 95330-3) NRBC/100 WBC (test See_Comment [Automat ed code = 0521182500) message] The system which generated this result transmitted reference range : 0.0 - 10.0 /100 WBCs. The refer ence range was not u sed to interpret th is result as normal/abnormal . NRBC x10^3 (test code <0.01 See_Comment [Auto mated = 9685271593) message] The s ystem which generated this result transmitted reference range : 10*3/?L. The reference range was not used to interpret this result as normal/abnormal . GRAN MAT (NEUT) % 71.7 % (test code = 770-8) IMM GRAN % (test code 0.60 % = 2181307350) LYMPH % (test code = 12.4 % 736-9) MONO % (test code = 12.1 % 5905-5) EOS % (test code = 2.7 % 713-8) BASO % (test code = 0.5 % 706-2) GRAN MAT x10^3(ANC) 4.44 10*3/uL 1.99-6.95 (test code = 0493453108) IMM GRAN x10^3 (test 0.04 10*3/uL 0.00-0.06 code = 8257997292) LYMPH x10^3 (test code 0.77 10*3/uL 1.09-3.23 L = 731-0) MONO x10^3 (test code 0.75 10*3/uL 0.36-1.02 = 742-7) EOS x10^3 (test code = 0.17 10*3/uL 0.06-0.53 711-2) BASO x10^3 (test code 0.03 10*3/uL 0.01-0.09 = 704-7) Lab Interpretation Abnormal (test code = 97833-5) [facility] [id number] 11:32:00Surgical Pathology Report Case: [id number] Authorizing Provider: Abran Berrios MD Collected: 02/03/2017 0845 Ordering Location: [facility] Diagnostic Imaging Received: 02/03/2017 0915 [...] ultrastructural evaluation. Clinical correlation is recommended.Reference: Garland Busby et al. Pathologic classification of diabetic nephropathy. J Am Soc Nephrol 21:556-563, 2009.00870, 29405 x3, 09442, 18422 x7, 37297Lnowycvryme, DM and serum creatinine 1.3 to 1.4Left [...] or vascular staining. Fibrinogen: diffuse, glomerular and tubulointerstitial,weak.[place]: negative glomeruli; rare small tubular casts are [...] segmentally effaced. Tubular basement membranes are thickened.POCT-GLUCOSE [id number] 09:15:00 Test Item Value Reference Range Interpretation Comments POC-GLUCOSE METER 140 mg/dL 70-110 H TESTED AT [address] ([facility]) (test code [facility] = 1538) [address] [id number] 07:43:00 Test Item Value Reference Range Interpretation Comments PROTIME ([facility]) (test code = 10.2 seconds 9.3-12.0 759) INR ([facility]) (test code = 370) 1.0 <=5.9 [...] Range Interpretation Comments WHITE BLOOD CELL COUNT ([facility]) 6.2 K/ L 4.0-10.0 (test code = 775) RED BLOOD CELL COUNT ([facility]) 3.55 M/ L 4.20-5.80 L (test code = 761) HEMOGLOBIN ([facility]) (test code = 11.2 GM/DL 13.0-16.8 L [...] L 0.00-0.20 (test code = 417) POCT-GLUCOSE [id number] 07:26:00 Test Item Value Reference Range Interpretation Comments POC-GLUCOSE METER 136 mg/dL 70-110 H TESTED AT [facility] [address] (test code [address] [facility] [place] = 1538) [address]"
[2021-08-26 02:01] LABS: Absolute Lymphocytes (CBC) 0.9 K/uL (0.7-4.9); Basophils % 1.3 % (0-1.3); Hematocrit 23.5 % (39.6-49.0); MPV 6.8 fL (7.6-11.3); RBC Red Blood Cell Count 2.61 M/uL (4.33-5.43)
[2021-08-26] MEDS ORDERED: ASPIRIN EC 81 MG TAB PO ONE (02:12)
[2021-08-26] MEDS ORDERED: MORPHINE 2 MG/ML SYR ONE (02:12)
[2021-08-26] MEDS ORDERED: ONDANSETRON 4 MG/2 ML VIAL ONE (02:12)
[2021-08-26 02:14] LABS: ALT/SGPT 104 U/L (12-78); AST/SGOT 60 U/L (15-37); Albumin 3.6 g/dL (3.4-5.0); Alkaline Phosphatase 116 U/L (45-117); BUN Blood Urea Nitrogen 48 mg/dL (7-18); Bicarbonate 22 mmol/L (21-32); Bilirubin Direct < 0.1 mg/dL (0-0.2); Bilirubin Total 0.4 mg/dL (0.2-1.0); Glucose Level 128 mg/dL (74-106); Magnesium 2.2 mg/dL (1.8-2.4); NT PRO-BNP 1396 pg/mL (<125); Potassium 4.4 mmol/L (3.5-5.1); Protein, Total 7.1 g/dL (6.4-8.2); Sodium Level 135 mmol/L (136-145); Troponin (Emerg Dept Use Only) < 0.02 ng/mL (0.0-0.045)
[2021-08-26 02:54] LABS: Lipase 219 U/L (73-393)
--- NOTE | 2021-08-26 02:56 | EDPHYS ---
Physician Documentation [facility] Name: Ivan Parra Age: 61 yrs Sex: Male : 1960 Arrival Date: 08/26/2021 Time: 01:16 Bed 4 Private MD: ED Physician Josue Morley HPI: 08/26 02:11 This 61 yrs old Male presents to ER via Ambulatory with complaints of Chest yi Pain > 30 y/o. 02:11 The patient or guardian reports chest pain that is located primarily in the substernal yi area. Onset: 2 hour(s) ago. The pain radiates to the right arm. Associated signs and symptoms: The patient has no apparent associated signs or symptoms. The chest pain is described as a heaviness, causing indigestion. Duration: The patient or guardian reports a single episode, that is still ongoing. Modifying factors: The symptoms are alleviated by nothing. the symptoms are aggravated by nothing. Severity of pain: At its worst the pain was moderate in the emergency department the pain is unchanged. The patient has experienced similar episodes in the past, several times. Historical: - Allergies: 02:00 No Known Allergies; lp1 - Home Meds: 01:59 amlodipine 10 mg tab 1 tab once daily [Active]; aspirin 81 mg Oral chew 1 tab once lp1 daily [Active]; cholecalciferol (vitamin D3) Oral daily [Active]; febuxostat 40 mg Oral tab 1 tab once daily [Active]; ferrous sulfate 325 mg (65 mg iron) Oral tab 1 tab once daily [Active]; icosapent ethyl 1 gram Oral cap 2 caps 2 times per day [Active]; isosorbide mononitrate 30 mg Oral Tb24 1 tab once daily [Active]; Jentadueto XR 2.5-1,000 mg Oral TBph 1 tab once daily [Active]; levocetirizine 5 mg Oral tab 1 tab once daily [Active]; lisinopril 10 mg Oral tab 1 tab once daily [Active]; rosuvastatin 40 mg Oral cpSP 1 cap once daily [Active]; - PMHx: 01:59 Congestive heart failure; diabetes mellitus; Hypercholesterolemia; Hypertensive lp1 disorder; kidney disease; Myocardial infarction; 02:00 Angina pectoris; tw5 - PSHx: 02:00 angioplasty with 3 stents; kidney biopsy; Stented artery; tw5 - Immunization history:: Client reports receiving the 2nd dose of the Covid vaccine. - Social history:: Smoking status: Patient denies any tobacco usage or history of. - Family history:: not pertinent. ROS: 02:11 Constitutional: Negative for fever, chills, and weight loss, Eyes: Negative for injury, yi pain, redness, and discharge, ENT: Negative for injury, pain, and discharge, Neck: Negative for injury, pain, and swelling, Respiratory: Negative for shortness of breath, cough, wheezing, and pleuritic chest pain, Abdomen/GI: Negative for abdominal pain, nausea, vomiting, diarrhea, and constipation, Back: Negative for injury and pain, : Negative for injury, bleeding, discharge, and swelling, MS/Extremity: Negative for injury and deformity, Skin: Negative for injury, rash, and discoloration, Neuro: Negative for headache, weakness, numbness, tingling, and seizure, Psych: Negative for depression, anxiety, suicide ideation, homicidal ideation, and hallucinations, Allergy/Immunology: Negative for hives, rash, and allergies, Endocrine: Negative for neck swelling, polydipsia, polyuria, polyphagia, and marked weight changes, Hematologic/Lymphatic: Negative for swollen nodes, abnormal bleeding, and unusual bruising. 02:11 Cardiovascular: Positive for chest pain, of the anterior aspect of left upper chest, mid-sternal area and left breast. Exam: 02:11 Constitutional: This is a well developed, well nourished patient who is awake, alert, yi and in no acute distress. Head/Face: Normocephalic, atraumatic. Eyes: Pupils equal round and reactive to light, extra-ocular motions intact. Lids and lashes normal. Conjunctiva and sclera are non-icteric and not injected. Cornea within normal limits. Periorbital areas with no swelling, redness, or edema. ENT: Nares patent. No nasal discharge, no septal abnormalities noted. Tympanic membranes are normal and external auditory canals are clear. Oropharynx with no redness, swelling, or masses, exudates, or evidence of obstruction, uvula midline. Mucous membranes moist. Neck: Trachea midline, no thyromegaly or masses palpated, and no cervical lymphadenopathy. Supple, full range of motion without nuchal rigidity, or vertebral point tenderness. No Meningismus. Chest/axilla: Normal chest wall appearance and motion. Nontender with no deformity. No lesions are appreciated. Cardiovascular: Regular rate and rhythm with a normal S1 and S2. No gallops, murmurs, or rubs. Normal PMI, no JVD. No pulse deficits. Respiratory: Lungs have equal breath sounds bilaterally, clear to auscultation and percussion. No rales, rhonchi or wheezes noted. No increased work of breathing, no retractions or nasal flaring. Abdomen/GI: Soft, non-tender, with normal bowel sounds. No distension or tympany. No guarding or rebound. No evidence of tenderness throughout. Back: No spinal tenderness. No costovertebral tenderness. Full range of motion. Male : Normal genitalia with no discharge or lesions. Skin: Warm, dry with normal turgor. Normal color with no rashes, no lesions, and no evidence of cellulitis. MS/ Extremity: Pulses equal, no cyanosis. Neurovascular intact. Full, normal range of motion. Neuro: Awake and alert, GCS 15, oriented to person, place, time, and situation. Cranial nerves II-XII grossly intact. Motor strength 5/5 in all extremities. Sensory grossly intact. Cerebellar exam normal. Normal gait. Psych: Awake, alert, with orientation to person, place and time. Behavior, mood, and affect are within normal limits. 02:11 ECG was reviewed by the Attending Physician. 05:36 Abdomen/GI: Rectal exam: is unremarkable, Prostate: normal, rectal tone normal, Stool: yi guaiac negative, hemorrhoid(s), are not appreciated, mass, is not appreciated, swelling, is not appreciated, tenderness, is not appreciated, Liver: no appreciated palpable abnormalities, Hernia: not appreciated. Vital Signs: 01:21 BP 157 / 85; Pulse 89; Resp 18; Temp 98.1; Pulse Ox 100% on R/A; Weight 79.83 kg; da3 Height 5 ft. 8 in. (172.72 cm); 02:00 BP 142 / 72; Pulse 83; Resp 18; Pulse Ox 100% on R/A; Pain 3/10; tw5 03:46 BP 127 / 67; Pulse 73; Resp 12; Pulse Ox 97% on R/A; Pain 2/10; tw5 03:47 Pain 2/10; tw5 01:21 Body Mass Index 26.76 (79.83 kg, 172.72 cm) da3 MDM: 01:45 Patient medically screened. yi 02:13 Differential diagnosis: abnormal EKG, acute myocardial infarction, acute pericarditis, yi coronary artery disease chest wall pain, Cholelithiasis esophagitis, pancreatitis, pericarditis, pleurisy, pneumonia, pneumothorax, pulmonary embolus, stable angina, unstable angina. HEART Score: History: Moderately Suspicious (1), ECG: Non specific repolarization disturbance / LBTB / PM (1), Age: > 45 and < 65 years (1), Risk Factors: > or = 3 Risk factors for atherosclerotic disease (2), [Hypercholesterolemia] [Hypertension] [DM] [+ Family HX] [Obesity] Troponin: < or = 1 x Normal Limit (0). The patient was given aspirin in the Emergency Department. The patient's deep vein thrombosis risk score was calculated as follows: Total Score: 0. This patient was found to be at low risk for a deep vein thrombosis by using the Well's assessment criteria. The patient's pulmonary embolism risk score was calculated as follows: Total Score: 0-2 points. This patient was found to be at low risk for a pulmonary embolism by using the Well's assessment criteria. JACQUI Risk Score: TOTAL SCORE = 0. Data reviewed: vital signs, nurses notes, lab test result(s), EKG, radiologic studies, CT scan, plain films. Data interpreted: patient monitor: not applicable for this patient encounter. Pulse oximetry: is not applicable for this patient encounter. Test interpretation: by ED physician or midlevel provider: ECG, plain radiologic studies. Counseling: I had a detailed discussion with the patient and/or guardian regarding: the historical points, exam findings, and any diagnostic results supporting the discharge/admit diagnosis, the presence of at least one elevated blood pressure reading (>120/80) during this emergency department visit, lab results, radiology results, the need for outpatient follow up, the need to transfer to another facility. 08/26 01:38 Order name: Basic Metabolic Panel 08/26 01:38 Order name: CBC with Diff 08/26 01:38 Order name: LFT's; Complete Time: 02:55 08/26 01:38 Order name: Magnesium; Complete Time: 02:55 08/26 01:38 Order name: NT PRO-BNP; Complete Time: 02:55 tw5 08/26 01:38 Order name: PT-INR; Complete Time: 02:08 tw08/26 01:38 Order name: Troponin (emerg Dept Use Only); Complete Time: 02:55 tw5 08/26 01:38 Order name: Basic Metabolic Panel; Complete Time: 02:55 EDVT 08/26 01:38 Order name: CBC with Automated Diff; Complete Time: 02:08 EDVT 08/26 02:08 Order name: Type And Screen [facility] 08/26 02:09 Order name: Type and Screen EDVT 08/26 02:11 Order name: Lipase [facility] 08/26 02:30 Order name: COVID-19 SARS RT PCR (Document "Date of Onset" if Symptomatic); Complete lp1 Time: 05:29 08/26 01:38 Order name: XRAY Chest (1 view) [facility] 08/26 01:38 Order name: EKG; Complete Time: 01:38 tw08/26 02:10 Order name: CT Head Brain wo Cont [facility] 08/26 02:10 Order name: CT Chest Wo Con [facility] 08/26 02:47 Order name: Lipase; Complete Time: 02:55 EDVT 08/26 03:18 Order name: CONS Physician Consult [facility] 08/26 05:25 Order name: Hemoglobin; Complete Time: 05:29 EDMS 08/26 05:25 Order name: Hematocrit; Complete Time: 05:29 EDVT 08/26 05:36 Order name: PRBC [facility] 08/26 01:38 Order name: Cardiac monitoring; Complete Time: 01:44 08/26 01:38 Order name: EKG - Nurse/Tech; Complete Time: 01:44 08/26 01:38 Order name: IV Saline Lock; Complete Time: 01:44 08/26 01:38 Order name: Labs collected and sent; Complete Time: :45 08/26 01:38 Order name: O2 Per Protocol; Complete Time: :45 08/26 01:38 Order name: O2 Sat Monitoring; Complete Time: 01:45 08/26 05:36 Order name: Transfuse yi EC:11 Rate is 90 beats/min. QRS [place] is Normal. [place] interval is normal. QRS interval is yi normal. QT interval is normal. No Q waves. T waves are Normal. No ST changes noted. Clinical impression: NSR w/ Non-specific ST/T Changes. Interpreted by me. Reviewed by me. Administered Medications: 02:16 Drug: Aspirin 81 mg Route: PO; tw5 03:47 Follow up: Response: No adverse reaction tw5 02:16 Drug: morphine 4 mg Route: IVP; Site: left forearm; tw5 03:47 Follow up: Pain 2/10 Adult; Response: No adverse reaction; Pain is decreased; RASS: tw5 Alert and Calm (0) 02:16 Drug: Zofran (Ondansetron) 4 mg Route: IVP; Site: left forearm; tw5 03:47 Follow up: Response: No adverse reaction tw5 03:54 Drug: Heparin (VT-Bolus No thrombolytic) - HEParin 60 units/kg {Co-Signature: lp1 tw5 (Maria Ventura RN).} Route: IVP; Site: left forearm; 05:51 Follow up: Response: No adverse reaction tw 03:54 Drug: Heparin (VT Drip) 12 units/kg/hr - (HEParin 20105 units, D5W 500 ml) tw5 {Co-Signature: lp1 (Maria Ventura RN).} Route: IV; Rate: calculated rate; Site: left forearm; 05:51 Follow up: IV Status: Infusion continued upon admission tw5 04:04 Drug: Pepcid (famotidine) 20 mg Route: IVP; Site: left forearm; tw5 05:51 Follow up: Response: No adverse reaction tw5 05:52 Drug: ProTONIX (pantoprazole) 40 mg Route: IVP; Site: left forearm; tw5 05:57 Follow up: Response: No adverse reaction tw5 Disposition Summary: 08/26/21 02:55 Hospitalization Ordered Hospitalization Status: Observation yi Provider: Hector Godfrey cha Location: Telemetry/MedSurg (observation) iy Condition: Fair yi Problem: new yi Symptoms: have improved yi Bed/Room Type: Standard yi Room Assignment: 410(08/26/21 04:47) cg Diagnosis - Chest pain, unspecified yi - Type 2 diabetes mellitus with hyperglycemia yi - Anemia, unspecified yi Forms: - Medication Reconciliation Form yi - SBAR form yi Signatures: Dispatcher [employer] Josue Barrera MD MD cha Pena, Laura, RN RN lp1 Maryam Lux RN RN Garrick Mann RN RN 3 Anne Everett Maria Ventura RN lp1 Corrections: (The following items were deleted from the chart) 02: 01:59 PSHx: angioplasty with 3 stents; 02: 01:59 PSHx: kidney biopsy; 01:59 PSHx: Stented artery; 02:00 Allergies: No Known Allergies; 02 02:00 Home Meds: amlodipine 10 mg tab 1 tab once daily; 02:00 Home Meds: aspirin 81 mg Oral chew 1 tab once daily; 02:00 Home Meds: cholecalciferol (vitamin D3) Oral daily; 02:00 Home Meds: febuxostat 40 mg Oral tab 1 tab once daily; 02:00 Home Meds: ferrous sulfate 325 mg (65 mg iron) Oral tab 1 tab once daily; 02:00 Home Meds: icosapent ethyl 1 gram Oral cap 2 caps 2 times per day; 02:00 Home Meds: isosorbide mononitrate 30 mg Oral Tb24 1 tab once daily; 02:00 Home Meds: Jentadueto XR 2.5-1,000 mg Oral TBph 1 tab once daily; 02:00 Home Meds: levocetirizine 5 mg Oral tab 1 tab once daily; 02:00 Home Meds: lisinopril 10 mg Oral tab 1 tab once daily; 02:00 Home Meds: rosuvastatin 40 mg Oral cpSP 1 cap once daily; 02:00 PMHx: Congestive heart failure; 02:00 PMHx: diabetes mellitus; 02:00 PMHx: Hypercholesterolemia; tw5 lp1 02:15 02:00 PMHx: Hypertensive disorder; tw5 lp1 02:15 02:00 PMHx: kidney disease; tw5 lp1 02:15 02:00 PMHx: Myocardial infarction; tw lp 02:46 02:11 Lipase ordered. EDMS EDMS 04:47 02:55 yi cg
--- NOTE | 2021-08-26 02:56 | ER ---
Nurse's Notes [facility] Name: Ivan Parra Age: 61 yrs Sex: Male : 1960 Arrival Date: 08/26/2021 Time: 01:16 Bed 4 Private MD: Diagnosis: Chest pain, unspecified;Type 2 diabetes mellitus with hyperglycemia;Anemia, unspecified Presentation: 08/26 01:21 Chief complaint: Patient states: chest pain at 2400 hrs, fingers numb, heart burn. da3 Coronavirus screen: Vaccine status: Patient reports being unvaccinated. Ebola Screen: No symptoms or risks identified at this time. Initial Sepsis Screen: Does the patient meet any 2 criteria? No. Patient's initial sepsis screen is negative. Does the patient have a suspected source of infection? No. Patient's initial sepsis screen is negative. Risk Assessment: Do you want to hurt yourself or someone else? Patient reports no desire to harm self or others. Onset of symptoms was August 26, 2021. 01:21 Method Of Arrival: Ambulatory da3 01:21 Acuity: KERWIN 3 da3 Triage Assessment: 01:21 General: Appears in no apparent distress. comfortable, Behavior is calm, cooperative, da3 quiet. Pain: Complains of pain in chest Pain currently is 4 out of 10 on a pain scale. Cardiovascular: No deficits noted. Historical: - Allergies: 02:00 No Known Allergies; lp1 - Home Meds: 01:59 amlodipine 10 mg tab 1 tab once daily [Active]; aspirin 81 mg Oral chew 1 tab once lp1 daily [Active]; cholecalciferol (vitamin D3) Oral daily [Active]; febuxostat 40 mg Oral tab 1 tab once daily [Active]; ferrous sulfate 325 mg (65 mg iron) Oral tab 1 tab once daily [Active]; icosapent ethyl 1 gram Oral cap 2 caps 2 times per day [Active]; isosorbide mononitrate 30 mg Oral Tb24 1 tab once daily [Active]; Jentadueto XR 2.5-1,000 mg Oral TBph 1 tab once daily [Active]; levocetirizine 5 mg Oral tab 1 tab once daily [Active]; lisinopril 10 mg Oral tab 1 tab once daily [Active]; rosuvastatin 40 mg Oral cpSP 1 cap once daily [Active]; - PMHx: 01:59 Congestive heart failure; diabetes mellitus; Hypercholesterolemia; Hypertensive lp1 disorder; kidney disease; Myocardial infarction; 02:00 Angina pectoris; tw5 - PSHx: 02:00 angioplasty with 3 stents; kidney biopsy; Stented artery; tw5 - Immunization history:: Client reports receiving the 2nd dose of the Covid vaccine. - Social history:: Smoking status: Patient denies any tobacco usage or history of. - Family history:: not pertinent. Screenin:00 Abuse screen: Denies threats or abuse. Denies injuries from another. Nutritional tw5 screening: No deficits noted. Tuberculosis screening: No symptoms or risk factors identified. Fall Risk Secondary diagnosis (15 points). Assessment: 01:56 General: Reports " I have been having a headache since Wednesday, I was told that the tw5 isosorbide might be the cause a headache, but I starting having a sharp pain in my chest right on my titty and it scared me. Now it is just a pain across my chest. I have hernia in my stomach, I was thinking maybe that is pressing up again my organs.". Pain: Complains of pain in chest Pain does not radiate. Pain currently is 3 out of 10 on a pain scale. at worst was 7 out of 10 on a pain scale. Pain began suddenly. Cardiovascular: Rhythm is regular. Respiratory: Airway is patent Trachea midline Respiratory effort is even, unlabored. 02:29 General: Reports Chandan [phone]. tw5 02:33 Reassessment: Patient appears in no apparent distress at this time. No changes from tw5 previously documented assessment. 03:46 Reassessment: Patient appears in no apparent distress at this time. No changes from tw5 previously documented assessment. Patient and/or family updated on plan of care and expected duration. Pain level reassessed. Patient states feeling better. Patient states symptoms have improved. Vital Signs: 01:21 BP 157 / 85; Pulse 89; Resp 18; Temp 98.1; Pulse Ox 100% on R/A; Weight 79.83 kg; da3 Height 5 ft. 8 in. (172.72 cm); 02:00 BP 142 / 72; Pulse 83; Resp 18; Pulse Ox 100% on R/A; Pain 3/10; tw5 03:46 BP 127 / 67; Pulse 73; Resp 12; Pulse Ox 97% on R/A; Pain 2/10; tw5 03:47 Pain 2/10; tw5 01:21 Body Mass Index 26.76 (79.83 kg, 172.72 cm) da3 ED Course: 01:16 Patient arrived in ED. da3 01:21 Arm band placed on left wrist. da3 01:24 Triage completed. da3 01:33 Josue Morley MD is Attending Physician. yi 01:42 Maria Ventura, TANNER is Primary Nurse. lp1 01:45 Initial lab(s) drawn, by me, sent to lab. EKG done, by ED staff, reviewed by Josue Morley MD. Inserted saline lock: 20 gauge in left forearm, using aseptic technique. Blood collected. Patient maintains SpO2 saturation greater than 95% on room air. 01:50 Basic Metabolic Panel Sent. bb 01:50 CBC with Diff Sent. bb 01:50 XRAY Chest (1 view) Sent. bb 01:51 XRAY Chest (1 view) In Process Unspecified. EDMS 02:00 Awaiting lab results. tw5 02:00 Patient has correct armband on for positive identification. Placed in gown. Bed in low lp1 position. order control clerk blood bank on. Pulse ox on. NIBP on. 02:00 Door closed. Noise minimized. Moved to private room. Warm blanket given. Verbal tw5 reassurance given. 02:10 Anne Everett is Primary Nurse. tw5 02:10 Basic Metabolic Panel Sent. tw5 02:30 Initial lab(s) drawn, by me. Inserted saline lock: 20 gauge in left forearm, using tw5 aseptic technique. Blood collected. IV discontinued, intact, bleeding controlled, No redness/swelling at site. Pressure dressing applied. 02:31 Type and Screen Sent. tw5 02:[address] tw5 02:33 COVID-19 SARS RT PCR (Document "Date of Onset" if Symptomatic) Sent. tw5 02:33 Lipase Sent. tw5 02:33 Type And Screen Sent. tw5 02:52 Hector Godfrey MD is Hospitalizing Provider. yi 02:56 CT Head Brain wo Cont In Process Unspecified. EDMS 02:56 CT Chest Wo Con In Process Unspecified. EDMS 03:35 COVID-19 SARS RT PCR (Document "Date of Onset" if Symptomatic) Sent. 05:52 No provider procedures requiring assistance completed. tw Administered Medications: 02:16 Drug: Aspirin 81 mg Route: PO; 03:47 Follow up: Response: No adverse reaction 02:16 Drug: morphine 4 mg Route: IVP; Site: left forearm; 03:47 Follow up: Pain 2/10 Adult; Response: No adverse reaction; Pain is decreased; RASS: Alert and Calm (0) 02:16 Drug: Zofran (Ondansetron) 4 mg Route: IVP; Site: left forearm; 03:47 Follow up: Response: No adverse reaction 03:54 Drug: Heparin (MO-Bolus No thrombolytic) - HEParin 60 units/kg {Co-Signature: lp1 tw (Maria Ventura RN).} Route: IVP; Site: left forearm; 05:51 Follow up: Response: No adverse reaction 03:54 Drug: Heparin (MO Drip) 12 units/kg/hr - (HEParin 89827 units, D5W 500 ml) {Co-Signature: lp1 (Maria Ventura RN).} Route: IV; Rate: calculated rate; Site: left forearm; 05:51 Follow up: IV Status: Infusion continued upon admission 04:04 Drug: Pepcid (famotidine) 20 mg Route: IVP; Site: left forearm; 05:51 Follow up: Response: No adverse reaction 05:52 Drug: ProTONIX (pantoprazole) 40 mg Route: IVP; Site: left forearm; 05:57 Follow up: Response: No adverse reaction Outcome: 02:55 Decision to Hospitalize by Provider. [facility] 04:52 Admitted to Med/surg room 410, Report called to Hannah tw 05:53 Admitted to Med/surg accompanied by nurse, with chart. 05:53 Condition: stable 05:53 Instructed on the need for admit. 05:53 Patient left the ED. Signatures: Dispatcher [employer] EDMS Josue Morley MD MD cha Ballard, Brenda RN Maria Rod RN RN lp1 Garrick Buenrostro RN RN Anne Red Maria Ventura RN lp1 Corrections: (The following items were deleted from the chart) 02:15 01:59 PSHx: angioplasty with 3 stents; lp1 lp1 02:15 01:59 PSHx: kidney biopsy; lp lp1 02: 01:59 PSHx: Stented artery; lp1 02:15 02:00 Allergies: No Known Allergies; lp1 02:15 02:00 Home Meds: amlodipine 10 mg tab 1 tab once daily; lp1 02 02:00 Home Meds: aspirin 81 mg Oral chew 1 tab once daily; lp1 02 02:00 Home Meds: cholecalciferol (vitamin D3) Oral daily; lp1 02: 02:00 Home Meds: febuxostat 40 mg Oral tab 1 tab once daily; lp 02:00 Home Meds: ferrous sulfate 325 mg (65 mg iron) Oral tab 1 tab once daily; lp 02:00 Home Meds: icosapent ethyl 1 gram Oral cap 2 caps 2 times per day; lp 02: 02:00 Home Meds: isosorbide mononitrate 30 mg Oral Tb24 1 tab once daily; lp1 02:15 02:00 Home Meds: Jentadueto XR 2.5-1,000 mg Oral TBph 1 tab once daily; lp1 02:15 02:00 Home Meds: levocetirizine 5 mg Oral tab 1 tab once daily; lp1 02:15 02:00 Home Meds: lisinopril 10 mg Oral tab 1 tab once daily; lp 02: 02:00 Home Meds: rosuvastatin 40 mg Oral cpSP 1 cap once daily; lp 02:15 02:00 PMHx: Congestive heart failure; lp1 02:15 02:00 PMHx: diabetes mellitus; lp09 14: 02:00 PMHx: Hypercholesterolemia; lp 02: 02:00 PMHx: Hypertensive disorder; lp 02:15 02:00 PMHx: kidney disease; lp 02:15 02:00 PMHx: Myocardial infarction; lp 02:46 02:31 Lipase drawn and sent. tw5 EDMS
[2021-08-26] MEDS ORDERED: HEPARIN/D5W 25,000 UNIT/500 ML BAG IV ONE (03:41)
[2021-08-26] MEDS ORDERED: HEPARIN 5000 UNIT/ML 1 ML VIAL ONE (03:41)
[2021-08-26] MEDS ORDERED: FAMOTIDINE 20 MG/2 ML VIAL IV ONE (03:42)
--- NOTE | 2021-08-26 04:52 | P.HP ---
Certification for Inpatient Patient admitted to: Inpatient With expected LOS: <2 Midnights Patient will require the following post-hospital care: None Practitioner: I am a practitioner with admitting privileges, knowledge of patient current condition, hospital course, and medical plan of care. Services: Services provided to patient in accordance with Admission requirements found in Title 42 Section 412.3 of the Code of Federal Regulations Patient History Date of Service: 08/26/21 Reason for admission: chest pain History of Present Illness: Mr. Parra is a 61 yo M with HTN, CAD, DM, HLD, AoCD with iron deficiency, and CKD who presents with chest pain. He reports he woke up from his sleep and felt 4/10 stabbing left sided chest discomfort. He also reports SOB and orthopnea. Denies PND. He says the pain increased when he tried to lay down and he was unable to get comfortable so he came to the ED. He reports mild edema in his legs, but has recently been switched to amlodipine after hyperkalemia secondary to lisinopril. Pain is now a 2/10. He was discharged on Wednesday from the hospital after a heart catheterization that should patent ostial RCA stent and patent LCX stent. He is scheduled to see his building surveyor on Wednesday. He was started on a heparin drip in the ED. Hemoglobin 8.1 BUN 48 Cr 1.92 GFR 36 AST 60 ALT 104 BNP 1396 Allergies No Known Allergies Allergy (Verified 07/15/21 22:34) Home Medications: Aspirin 81 mg PO DAILY 07/16/21 Cholecalciferol (Vitamin D3) [Vitamin D3] 50 mcg PO DAILY 07/16/21 Ezetimibe/Rosuvastatin Calcium [Rosuvastatin-Ezetimibe 40-10Mg] 1 each PO DAILY 6PM 07/16/21 Febuxostat 40 mg PO DAILY 07/16/21 Ferrous Sulfate 325 mg PO DAILY 07/16/21 Icosapent Ethyl [Vascepa] 1 gm PO BID 07/16/21 Levocetirizine Dihydrochloride [24Hr Allergy Relief] 5 mg PO DAILY 07/16/21 Clopidogrel Bisulfate [Plavix*] 75 mg PO DAILY #30 tablet 07/18/21 Amlodipine [Norvasc*] 10 mg PO DAILY #30 tab 08/23/21 Carvedilol [Coreg] 3.125 mg PO BID 08/23/21 Isosorbide Mononitrate [Isosorbide Mononitrate ER] 60 mg PO DAILY #30 tab.er.24h 08/23/21 Linagliptin/Metformin HCl [Jentadueto 2.5 mg-500 mg Tab] 2.5 mg PO DAILY 08/23/21 Nitroglycerin 0.4 mg PO PRN PRN 08/23/21 Pantoprazole [Protonix Tab*] 40 mg PO DAILYAC #30 tab 08/23/21 Patiromer Calcium Sorbitex [Veltassa] 16.8 g PO DAILY 08/23/21 - Past Medical/Surgical History -: Hypertension -: DM type 2 -: Chronic kidney disease -: CAD with prior stent -: Hyperlipidemia -: Anemia of chronic disease with iron deficiency -: GERD Past Surgical History: Patient denies surgical history Psychosocial/ Personal History: Patient lives at home. He is - Family History Mother -: Diabetes Father -: Heart disease - Social History Smoking Status: Never smoker Alcohol use: Yes CD- Drugs: No Caffeine use: No Review of Systems 10-point ROS is otherwise unremarkable Eyes: Unremarkable ENT: Unremarkable Respiratory: Shortness of Breath Cardiovascular: Chest Pain Gastrointestinal: Unremarkable Genitourinary: Unremarkable Musculoskeletal: Unremarkable Integumentary: Unremarkable Neurological: Unremarkable Lymphatics: Unremarkable Physical Examination - Physical Exam General: Alert, In no apparent distress HEENT: Atraumatic, PERRLA, Mucous membr. moist/pink, EOMI, Sclerae nonicteric Neck: Supple, 2+ carotid pulse no bruit, No LAD, Without JVD or thyroid abnormality Respiratory: Clear to auscultation bilaterally, Normal air movement Cardiovascular: Regular rate/rhythm, Normal S1 S2 Gastrointestinal: Normal bowel sounds, No tenderness Musculoskeletal: No tenderness Integumentary: No rashes Neurological: Normal gait, Normal speech, Normal strength at 5/5 x4 extr, Normal tone, Normal affect Lymphatics: No axilla or inguinal lymphadenopathy - Studies Laboratory Data (last 24 hrs) 08/26/21 02:11: Lipase Cancelled 08/26/21 01:45: PT 11.5, INR 1.00 08/26/21 01:45: WBC 4.40, Hgb 8.1 L, Hct 23.5 L, Plt Count 225 08/26/21 01:45: Sodium 135 L, Potassium 4.4, BUN 48 H, Creatinine 1.92 H, Glucose 128 H, Magnesium 2.2, Total Bilirubin 0.4, AST 60 H, ALT 104 H, Alkaline Phosphatase 116, Lipase 219 Assessment and Plan - Problems (Diagnosis) (1) Anemia of chronic disease Current Visit: Yes Status: Chronic (2) Chest pain Current Visit: Yes Status: Acute Qualifiers: Chest pain type: unspecified Qualified Code(s): R07.9 - Chest pain, unsp ecified (3) Chronic kidney disease, stage 3 Current Visit: No Status: Chronic Qualifiers: Chronic kidney disease stage 3 subtype: stage 3b (GFR 30-44) Qualified Code(s): N18.32 - Chronic kidney disease, stage 3b (4) Coronary artery disease Current Visit: No Status: Chronic Qualifiers: Coronary Disease-Associated Artery/Lesion type: [place] artery [place] vs. transplanted heart: [place] heart Associated angina: unspecified whether angina present Qualified Code(s): I25.10 - Atherosclerotic heart disease of [place] coronary artery without angina pectoris (5) DM type 2 (diabetes mellitus, type 2) Current Visit: No Status: Chronic Qualifiers: Diabetes mellitus watermaster insulin use: unspecified watermaster insulin use status Diabetes mellitus complication status: with kidney complications Diabetes mellitus complication detail: with chronic kidney disease Chronic kidney disease stage: stage 3 (moderate) Chronic kidney disease stage 3 subtype: stage 3b (GFR 30-44) Qualified Code(s): E11.22 - Type 2 diabetes mellitus with diabetic chronic kidney disease; N18.32 - Chronic kidney disease, stage 3b - Plan cardiology consulted, nephrology consulted reconcile and continue home medications continue heparin drip morphine and NTG prn for pain type and screen pending, transfuse if Hemoglobin <9 sliding scale insulin and accuchecks Discharge Plan: Home Plan to discharge in: 24 Hours - Advance Directives Does patient have a Living Will: Yes Does patient have a Durable POA for Healthcare: No - Code Status/Comfort Care Code Status Assessed: Yes (full code ) Critical Care: No Time Spent Managing Pts Care (In Minutes): 70
[2021-08-26] MEDS ORDERED: HEPARIN/D5W 25,000 UNIT/500 ML BAG IV SCH (05:06)
[2021-08-26] MEDS ORDERED: ACETAMINOPHEN 500 MG TAB PO PRN (05:06)
[2021-08-26] MEDS ORDERED: MORPHINE 2 MG/ML SYR IV PRN (05:06)
[2021-08-26] MEDS ORDERED: NITROGLYCERIN 0.4 MG/TAB SL PRN (05:06)
[2021-08-26] MEDS ORDERED: ONDANSETRON 4 MG/2 ML VIAL IV PRN (05:06)
[2021-08-26 05:25] LABS: Hematocrit 21.8 % (39.6-49.0)
[2021-08-26] MEDS ORDERED: PANTOPRAZOLE 40 MG INJ ONE (05:52)
[2021-08-26] MEDS ORDERED: PANTOPRAZOLE 40MG TABLET PO SCH (06:30)
[2021-08-26] MEDS: INSULIN -REGULAR HUMAN 50 UNIT/0.5 ML ML SQ SCH ×4 (07:30→20:42)
--- NOTE | 2021-08-26 08:23 | RAD REPORT ---
EXAM DESCRIPTION: RAD - Chest Single View - 08/26/2021 1:51 am CLINICAL HISTORY: CHEST PAIN COMPARISON: August 22 TECHNIQUE: AP portable chest image was obtained 08/26/2021 1:51 am . FINDINGS: No focal mass or consolidation. No new lung parenchymal finding. The interstitial pattern is stable. Hilar regions are within normal range and stable. Trachea is midline. Heart and vasculature are martha l. No measurable pleural effusion and no pneumothorax. No acute bony abnormality seen. No acute aorti c findings suspected. IMPRESSION: No acute cardiopulmonary process. No significant change from comparison study.
[2021-08-26] MEDS: carvediloL 3.125 MG TAB PO SCH ×2 (08:28→20:41)
[2021-08-26] MEDS ORDERED: VITAMIN D 1000 UNIT TAB PO SCH (09:00)
[2021-08-26] MEDS ORDERED: Patiromer Calcium Sorbitex [Veltassa] 8.4 GM Powd.Pack PO SCH (09:00)
[2021-08-26] MEDS ORDERED: AMLODIPINE 10 MG TAB PO SCH (09:00)
[2021-08-26] MEDS ORDERED: CLOPIDOGREL 75 MG TABLET PO SCH (09:00)
[2021-08-26] MEDS ORDERED: Febuxostat [Febuxostat] 40 MG Tablet PO SCH (09:00)
[2021-08-26] MEDS ORDERED: ASPIRIN 81 MG CHEWABLE TABLET PO SCH (09:00)
[2021-08-26] MEDS ORDERED: LORATADINE 10 MG TAB PO SCH (09:00)
[2021-08-26] MEDS ORDERED: ISOSORBIDE MONO SR 60 MG TAB PO SCH (09:00)
[2021-08-26] MEDS ORDERED: FERROUS SULFATE 325 MG TAB PO SCH (09:00)
--- NOTE | 2021-08-26 09:05 | P.CNS ---
Date of Consult: 08/26/21 Reason for Consult: LOUISE, CKD3 Chief Complaint: chest pain History of Present Illness: 61M w/ PMHx of CKD3a, baseline eGFR 53 ml/min, w/ recent LOUISE episodes 2/2 prerenal state, HTN, CAD s/p PCI, DM2, HLD, GERD & anemia who presented w/ recurrent chest pain. GFR noted to be at 36 ml/min. EKG no ischemic changes. Trop neg. He has parasternal tenderness. Chest pain is pleuritic. Also has intermittent heartburn. Allergies No Known Allergies Allergy (Verified 07/15/21 22:34) Home Medications: Aspirin 81 mg PO DAILY 07/16/21 Cholecalciferol (Vitamin D3) [Vitamin D3] 50 mcg PO DAILY 07/16/21 Febuxostat 40 mg PO DAILY 07/16/21 Ferrous Sulfate 325 mg PO DAILY 07/16/21 Icosapent Ethyl [Vascepa] 2 gm PO BID 07/16/21 Levocetirizine Dihydrochloride [24Hr Allergy Relief] 5 mg PO DAILY 07/16/21 Amlodipine [Norvasc*] 10 mg PO DAILY #30 tab 08/23/21 Carvedilol [Coreg] 3.125 mg PO BID 08/23/21 Isosorbide Mononitrate [Isosorbide Mononitrate ER] 60 mg PO DAILY #30 tab.er.24h 08/23/21 Linagliptin/Metformin HCl [Jentadueto 2.5 mg-500 mg Tab] 2.5 mg PO DAILY 08/23/21 Nitroglycerin 0.4 mg PO PRN PRN 08/23/21 Patiromer Calcium Sorbitex [Veltassa] 16.8 g PO DAILY 08/23/21 Clopidogrel Bisulfate [Plavix*] 75 mg PO DAILY 08/26/21 Pantoprazole [Protonix Tab] 40 mg PO DAILY #30 tab 08/26/21 Rosuvastatin Calcium 40 mg PO BEDTIME 08/26/21 - Past Medical/Surgical History Diabetic: Yes -: Hypertension -: DM type 2 -: Chronic kidney disease -: CAD with prior stent -: Hyperlipidemia -: Anemia of chronic disease with iron deficiency -: GERD Psychosocial/ Personal History: Patient lives at home. He is - Family History Mother Medical History: Diabetes Father Medical History: Heart disease Notes: [place]- Brother Medical History: Diabetes - Social History Alcohol use: Yes CD- Drugs: No Caffeine use: No Place of Residence: Home Review of Systems General: Weakness Eyes: Unremarkable ENT: Unremarkable Respiratory: Unremarkable Cardiovascular: Chest Pain Gastrointestinal: Unremarkable Genitourinary: Unremarkable Musculoskeletal: Unremarkable Integumentary: Unremarkable Neurological: Unremarkable Lymphatics: Unremarkable Physical Examination Temp Pulse Resp BP Pulse Ox 97.8 F 74 16 149/80 H 100 08/26/21 08:00 08/26/21 08:29 08/26/21 08:00 08/26/21 08:29 08/26/21 08:00 General: In no apparent distress HEENT: Atraumatic, Normocephalic Neck: Supple, JVD not distended Respiratory: Clear to auscultation bilaterally Cardiovascular: Normal S1 S2, No rubs, No murmurs Gastrointestinal: Soft and benign, No guarding Musculoskeletal: No clubbing, No swelling Integumentary: No warmth Neurological: Normal speech, Normal tone Lymphatics: No axilla or inguinal lymphadenopathy Urinary: Other (no bladder distention) External genitalia: Deferred Rectal: Deferred Laboratory Data (last 24 hrs) 08/26/21 02:11: Lipase Cancelled 08/26/21 01:45: PT 11.5, INR 1.00 08/26/21 01:45: WBC 4.40, Hgb 8.1 L, Hct 23.5 L, Plt Count 225 08/26/21 01:45: Sodium 135 L, Potassium 4.4, BUN 48 H, Creatinine 1.92 H, Glucose 128 H, Magnesium 2.2, Total Bilirubin 0.4, AST 60 H, ALT 104 H, Alkaline Phosphatase 116, Lipase 219 Conclusions/Impression: # Recurrent chest pain Hx of heartburn--> advised to take pepcid prn Has parasternal tenderness c/w costochondritis--> advised to take tylenol prn Recent NSTEMI status post PCI Currently on dual antiplatelet therapy Continue cardioprudent medications Lisinopril on hold; resume when no recurrent hyperK # Hypotonic, hypovolemic, presumed chronic, symptomatic, severe hyponatremia 2/2 prerenal state + HCTZ use +/- appropriate ADH release from pain/headache Resolved Dc HCTZ permanently Adeq po solid food intake tid [place] by mouth fluid intake Tylenol prn for headache Serum Na goal long-term > 130 to prevent imbalance/falls # LOUISE 2/2 prerenal state +/- CRS1, on CKD3 w/ mild proteinuria presumed to be 2/2 Htn/DM Baseline eGFR at 53 ml/min on 06/21/21 He had recent LOUISE in the setting of NSTEMI with GFR dropping to the 30s mL per minute, currently at 36 mL/min Renal US on 04/23/2021 unremarkable Has bouts of ATI secondary to acute cardiorenal syndrome +Mild proteinuria; random UPCR 0.7 g HLD mngt as below Hold lisinopril Monitor renal panel # Htn BP near goal; Goal BP less than 130/80 Continue current BP med regimen Hold Lisinopril Avoid Hydralazine or Minoxidil to avoid vasodilatory edema HCTZ dc permanently as above # HLD Cont vascepa + crestor # Anemia w/ iron deficiency History of colon polyps for which he underwent colonoscopy last year and was advised to have repeat colonoscopy this year to reassess polyps He agreed to call and schedule for his next colonoscopy When cleared by cardiology Cont FeSO4 tabs No need for further erythropoietin injections Monitor H/H # Secondary hyperPTH Recent iPTH elevated at 180 Recent 25OHD level low at 18 Cont Cholecalciferol 50,000 IU po q wkly x 12 doses, then maintenance dose of 1000 IU po daily # Vit D defciency D3 suppl as above # Hyperuricemia Serum uric acid high at 9.8 Cont Uloric 40 mg po daily # DM2 Recent Hemoglobin A1c 7.5% Mngt per primary team # Chronic low back pain Outpatient physical therapy # Dispo Dc today F/u in kidney clinic
[2021-08-26] MEDS: icosapent ethyL 1 GM CAP PO SCH ×2 (09:10→20:41)
[2021-08-26] MEDS ORDERED: NA CHLORIDE 0.9% 500 ML ONE (09:34)
[2021-08-26 11:21] VITALS: BMI 26.7
--- NOTE | 2021-08-26 12:21 | RAD REPORT ---
EXAM DESCRIPTION: CT - Thorax Goldie Carbajal - 08/26/2021 4:38 am CLINICAL HISTORY: PAIN TECHNIQUE: Axial computed tomography images of the chest without intravenous contrast. Sagittal an d coronal reformatted images were created and reviewed. This CT exam was performed using one or mor e of the following dose reduction techniques: automated exposure control, adjustment of the mA and/ or kV according to patient size, and/or use of iterative reconstruction technique. COMPARISON: No relevant prior studies available. FINDINGS: Lungs: Lingular pleural parenchymal scar. No focal infiltrate. Pleural space: Unremarkable. No pneumothorax. No significant effusion. Heart: The heart is mildly enlarged. Coronary artery calcification. No significant pericardial ef fusion. Mediastinum: Subcentimeter mediastinal and bilateral axillary lymph nodes. Bones/joints: Multilevel spondylosis. No acute fracture. No dislocation. Soft tissues: Unremarkable. Vasculature: Mild to moderate atherosclerotic disease. No thoracic aortic aneurysm. Lymph nodes: See above. Spleen: Splenic parenchymal calcification compatible with remote granulomatous organism exposure. Kidneys and ureters: Moderate bilateral perinephric stranding. Stomach and bowel: Colonic diverticulosis. IMPRESSION: 1. No focal infiltrate. 2. Moderate bilateral perinephric stranding. This is nonspecific and may be chronic. Acute superimp osed inflammatory process not excluded. 3. Other findings as above. Electronically signed by: Simi Tadeo MD 08/26/2021 3:40 AM DIESEL ENGINE SPECIALIST Due to temporary technical issues with the PACS/Fluency reporting system, reports are being signed by the in house radiologist without review as a courtesy to ensure prompt reporting. The interpreting r adiologist is fully responsible for the content of the report.
--- NOTE | 2021-08-26 12:24 | RAD REPORT ---
EXAM DESCRIPTION: CT - Head Brain Wo Cont - 08/26/2021 4:37 am CLINICAL HISTORY: The patient is 61 years old and is Male; HEADACHE TECHNIQUE: Axial computed tomography images of the head/brain without intravenous contrast. Sagitt al and coronal reformatted images were created and reviewed. This CT exam was performed using one o r more of the following dose reduction techniques: automated exposure control, adjustment of the mA and/or kV according to patient size, and/or use of iterative reconstruction technique. COMPARISON: No relevant prior studies available. FINDINGS: Brain: Unremarkable. No hemorrhage. No significant white matter disease. No edema. Ventricles: Unremarkable. No ventriculomegaly. Bones/joints: Unremarkable. No acute fracture. Soft tissues: Unremarkable. Sinuses: Unremarkable as visualized. Mastoid air cells: Unremarkable as visualized. No mastoid effusion. IMPRESSION: No acute intracranial abnormality. Electronically signed by: Erasmo Blackwell MD 08/26/2021 3:35 AM LOGGER ALL ROUND Due to temporary technical issues with the PACS/Fluency reporting system, reports are being signed by the in house radiologist without review as a courtesy to ensure prompt reporting. The interpreting r adiologist is fully responsible for the content of the report.
--- NOTE | 2021-08-26 12:27 | EKG ---
Test Date: 2021-08-26 Test Time: 01:33:46 Cage Loader: SAIRA MEASUREMENT RESULTS: Intervals: Rate: 90 SC: 170 QRSD: 82 QT: 358 QTc: 437 [place]: P: 55 SC: 170 QRS: 48 T: -61 INTERPRETIVE STATEMENTS: Normal sinus rhythm Cannot rule out Inferior infarct, age undetermined ST & T wave abnormality, consider lateral ischemia Abnormal ECG Compared to ECG 08/22/2021 09:45:02 No significant changes Electronically Signed On 08-26-21 12:25:42 ADMISSIONS SPECIALIST by Cm Schroeder
[2021-08-26] MEDS ORDERED: NA CHLORIDE 0.9% 250 ML ONE (13:07)
--- NOTE | 2021-08-26 13:59 | P.DS ---
Admission Date: 08/26/21 Discharge Date: 08/26/21 Disposition: ROUTINE DISCHARGE Discharge Condition: FAIR Reason for Admission: chest pain Consultations: Nephrology Cardiology - Problems (1) Chest pain Status: Acute Qualifiers: Chest pain type: unspecified Qualified Code(s): R07.9 - Chest pain, unspecified (2) Coronary artery disease Status: Chronic Qualifiers: Coronary Disease-Associated Artery/Lesion type: [place] artery [place] vs. transplanted heart: [place] heart Associated angina: unspecified whether angina present Qualified Code(s): I25.10 - Atherosclerotic heart disease of [place] coronary artery without angina pectoris (3) DM type 2 (diabetes mellitus, type 2) Status: Chronic Qualifiers: Diabetes mellitus usp insulin use: unspecified usp insulin use status Diabetes mellitus complication status: with kidney complications Di abetes mellitus complication detail: with chronic kidney disease Chronic kidney disease stage: stage 3 (moderate) Chronic kidney disease stage 3 s ubtype: stage 3b (GFR 30-44) Qualified Code(s): E11.22 - Type 2 diabetes mellitus with diabetic chronic kidney disease; N18.32 - Chronic kidney disease, stage 3b Brief History of Present Illness: Mr. Parra is a 61 yo M with HTN, CAD, DM, HLD, AoCD with iron deficiency, and CKD who presents with chest pain. He reports he woke up from his sleep and felt 4/10 stabbing left sided chest discomfort. He also reports SOB and orthopnea. Denied PND. He says the pain increased when he tried to lay down and he was unable to get comfortable so he came to the ED. He reports mild edema in his legs. Pain is now a 2/10. He was discharged on Wednesday from the hospital after a heart catheterization that showed patent ostial RCA stent and patent LCX stent. He is scheduled to see his furnace cooler on Wednesday. Initial troponin negative Hemoglobin 8.1 BUN 48 Cr 1.92 GFR 36 AST 60 ALT 104 BNP 1396. Patient placed under observation for further evaluation. Hospital Course: Patient placed on observation on the medical floor. Troponin trended negative. Patient seen by cardiology who recommended to stick to the plan of outpatient stress test. Patient is scheduled to follow with Dr. Jimenez in the office. His hemoglobin was 7.4. Patient with a history of iron deficiency anemia. He was transfused 2 unit PRBC. He is discharged to follow with cardiology for further cardiac work-up as planned. Vital Signs/Physical Exam: Temp Pulse Resp BP Pulse Ox 97.9 F 87 16 121/63 99 08/26/21 12:00 08/26/21 12:00 08/26/21 12:00 08/26/21 12:00 08/26/21 12:00 General: Alert, In no apparent distress, Oriented x3 HEENT: Mucous membr. moist/pink Neck: JVD not distended Respiratory: Clear to auscultation bilaterally, Normal air movement Cardiovascular: No edema, Regular rate/rhythm, Normal S1 S2, No murmurs Capillary refill: <2 Seconds Gastrointestinal: Normal bowel sounds, Soft and benign, Non-distended, No tenderness Musculoskeletal: No swelling, No tenderness Integumentary: No rashes Neurological: Normal speech, Normal strength at 5/5 x4 extr, Cranial nerves 3-12 intact Laboratory Data at Discharge: WBC 4.40 K/uL (4.3-10.9) 08/26/21 01:45 Hgb 7.4 g/dL (13.6-17.9) L 08/26/21 04:57 Hct 21.8 % (39.6-49.0) L 08/26/21 04:57 Plt Count 225 K/uL (152-406) 08/26/21 01:45 PT 11.5 SECONDS (9.5-12.5) 08/26/21 01:45 INR 1.00 08/26/21 01:45 APTT 42.5 SECONDS (24.3-36.9) H 08/26/21 08:36 Sodium 135 mmol/L (136-145) L 08/26/21 01:45 Potassium 4.4 mmol/L (3.5-5.1) 08/26/21 01:45 BUN 48 mg/dL (7-18) H 08/26/21 01:45 Creatinine 1.92 mg/dL (0.55-1.3) H 08/26/21 01:45 Glucose 128 mg/dL (74-106) H 08/26/21 01:45 Magnesium 2.2 mg/dL (1.8-2.4) 08/26/21 01:45 Total Bilirubin 0.4 mg/dL (0.2-1.0) 08/26/21 01:45 AST 60 U/L (15-37) H 08/26/21 01:45 ALT 104 U/L (12-78) H 08/26/21 01:45 Alkaline Phosphatase 116 U/L (45-117) 08/26/21 01:45 Troponin I < 0.02 ng/mL (0.0-0.045) 08/26/21 10:45 Lipase Cancelled 08/26/21 02:11 Home Medications: Aspirin 81 mg PO DAILY 07/16/21 Cholecalciferol (Vitamin D3) [Vitamin D3] 50 mcg PO DAILY 07/16/21 Febuxostat 40 mg PO DAILY 07/16/21 Ferrous Sulfate 325 mg PO DAILY 07/16/21 Icosapent Ethyl [Vascepa] 2 gm PO BID 07/16/21 Levocetirizine Dihydrochloride [24Hr Allergy Relief] 5 mg PO DAILY 07/16/21 Amlodipine [Norvasc*] 10 mg PO DAILY #30 tab 08/23/21 Carvedilol [Coreg] 3.125 mg PO BID 08/23/21 Isosorbide Mononitrate [Isosorbide Mononitrate ER] 60 mg PO DAILY #30 tab.er.24h 08/23/21 Linagliptin/Metformin HCl [Jentadueto 2.5 mg-500 mg Tab] 2.5 mg PO DAILY 08/23/21 Nitroglycerin 0.4 mg PO PRN PRN 08/23/21 Patiromer Calcium Sorbitex [Veltassa] 16.8 g PO DAILY 08/23/21 Clopidogrel Bisulfate [Plavix*] 75 mg PO DAILY 08/26/21 Pantoprazole [Protonix Tab] 40 mg PO DAILY #30 tab 08/26/21 Rosuvastatin Calcium 40 mg PO BEDTIME 08/26/21 New Medications: Pantoprazole [Protonix Tab] 40 mg PO DAILY #30 tab Followup: NONE,NONE [Primary Care Provider] -
[2021-08-26] MEDS ORDERED: EPOETIN ALFA-EPBX 10,000 UNIT/ML VIAL SQ STA (14:14)
[2021-08-26 19:26] LABS: Hematocrit 29.2 % (39.6-49.0)
[2021-08-26 20:38] VITALS: O2SAT 100
[2021-08-26 20:43] VITALS: BP 166/82; TEMP 98
[2021-08-26] MEDS ORDERED: EZETIMIBE 10 MG TAB PO SCH (21:00)
[2021-08-26] MEDS ORDERED: ROSUVASTATIN 10 MG TAB PO SCH (21:00)
== END 2021-08-26 21:00 | disposition home or self-care (01) ==
LOC: ER 01:13 → ERHOLD 03:17 → 4TH 04:57
PROVIDERS: ADMIT Internal Medicine; ATTEND Internal Medicine
DX: R07.9 Chest pain, unspecified (principal); I25.10 Atherosclerotic heart disease of native coronary artery without angina pectoris; E78.5 Hyperlipidemia, unspecified; I12.9 Hypertensive chronic kidney disease with stage 1 through stage 4 chronic kidney disease, or unspecified chronic kidney disease; N18.32 Chronic kidney disease, stage 3b; E11.22 Type 2 diabetes mellitus with diabetic chronic kidney disease; N17.9 Acute kidney failure, unspecified; D50.9 Iron deficiency anemia, unspecified; Z20.822 Contact with and (suspected) exposure to COVID-19
CPT/HCPCS: 36430; 93005; 85025; 80048; 36415; 86900; 83735; 86850; 85610; 86901; 82947 ×4; 80076; 85730; 85018 ×2; 85014 ×2; 84484 ×3; 83690; 83880; 82668; 70450; 71250; 71045; 94760 ×3; U0003; J1644 ×2; C9113; J2270; Q5106; P9016 ×2; J7050; J7040; J2405; G0378 ×2; 96365; 96366; 96375; 99285

== ENCOUNTER 2021-08-30 15:52 | Emergency (ER) | payer BC ==
--- OUTSIDE RECORDS SUMMARY | 2021-08-30 15:56 | XMS REPORT | Continuity of Care Document ---
:1960 Author Organization [facility] t Address 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 (event) Branch Tobacco use and 2021-06-19 2021-06-19 Never used Universit y of exposure 00:00:00 00:00:00 [facility] Alcohol intake 2021-06-19 2021-06-19 Ex-drinker [facility] 00:00:00 00:00:00 (finding) [facility] Sex Ass[birth year] At [birth year] Universit y of 00:00:00 00:00:00 [facility] Smoking Status Start Date Stop Date Source Never smoker [facility] Medications Ordered Filled Start Stop Current Ordering Indication Dosage Frequency Signature Comments Components Source Medication Medication Date Date Medication? Clinician (SIG) Name Name amLODIPine 2020-09 Yes [id number] 5mg Take 1 U nivers 5 mg tablet 0-10 tablet by ity of 00:00: mouth [place] 00 daily. Medical Branch cholecalcif 2020-09 Yes [id number] 2000U Take 2 Univers savanah, 0-10 tablets by ity of vitamin D3, 00:00: mouth [place] 25 mcg 00 daily. Medical (1,000 Branch unit) tablet lisinopriL 2020-09 Yes [id number] 5mg Take 1 U nivers 5 mg tablet 0-10 tablet by ity of 00:00: mouth [place] 00 daily. Medical Branch amLODIPine 2020-09 Yes [id number] 5mg Take 1 U nivers 5 mg tablet 0-10 tablet by ity of 00:00: mouth [place] 00 daily. Medical Branch cholecalcif 2020-09 Yes [id number] 2000U Take 2 Univers savanah, 0-10 tablets by ity of vitamin D3, 00:00: mouth [place] 25 mcg 00 daily. Medical (1,000 Branch unit) tablet lisinopriL 2020-09 Yes [id number] 5mg Take 1 U nivers 5 mg tablet 0-10 tablet by ity of 00:00: mouth [place] 00 daily. Medical Branch febuxostat 2020-09 Yes [id number] 40mg 40 mg, U nivers (ULORIC) 0-09 Oral, ity of tablet 40 14:00: DAILY, [place] mg 00 First dose Medical on Sat Branch 06/21/21 at 0900, Until Discontinu ed, Routine lisinopriL 2020-09 Yes [id number] 5mg 5 mg, Un chani (PRINIVIL,Z 0-09 [...] ity of tablet 11:52: daily. [place] [address] Medical Branch levocetiriz 2020-09 Yes 5mg Take 5 mg U nivers ine 5 mg 0-09 by mouth ity of tablet 11:52: daily. [address] Branch rosuvastati 2020-09 Yes 40mg Take [...] by mouth ity of tablet 11:52: daily. [address] Branch levocetiriz 2020-09 Yes 5mg Take 5 mg U nivers ine 5 mg 0-09 by mouth ity of tablet 11:52: daily. [address] rosuvastati 2020-09 Yes 40mg Take 40 mg Univers n 40 mg 0-09 by mouth ity of tablet 11:52: every [place] 04 evening. Medical With Branch dinner linagliptin 2020-09 Yes 1{tbl} Take 1 Un chani -metformin 0-09 tablet by ity of (JENTADUETO 11:52: mouth 2 Naresh as ) 2.5-500 04 (two) Medical mg Tab times [place] daily. icosapent 2020-09 Yes 1{capsu Take 1 [...] 0800 am and 1400 febuxostat 2020-09 Yes [id number] 40mg Take 1 U nivers 40 mg 0-09 tablet by ity of tablet 00:00: mouth [place] 00 daily. Medical Branch febuxostat 2020-09 Yes [id number] 40mg Take 1 U nivers 40 mg 0-09 tablet by ity of tablet 00:00: mouth [place] 00 daily. Medical Branch NaCl 0.9% 2020-09 Yes [id number] IV Unive rs (NS) IV 0-08 Infusion, ity of infusion 19:15: at 100 [place] 00 mL/hr, Medical CONTINUOUS Branch , Starting on Wed06/20/21 at 1415, Until Discontinu ed, STAT amLODIPine 2020-09 Yes [id number] 5mg 5 mg, Un chani (NORVASC) 0-08 [...] Discontinu ed, Routine NaCl 0.9% 2020-09- No [id number] IV Univ ers (NS) IV 0-08 10-08 Infusion, ity of infusion 13:30: 19:02 at 75 [place] 00 :45 mL/hr, Medical CONTINUOUS Branch , Starting on Wed06/20/21 at 0830, Until Wed06/20/21 at 1402, STAT heparin 2020-09 Yes 5000U 5,000 Univers (porcine) 0-08 Units, ity of injection 11:00: [place] 5,000 Units 00 us, Q8H, [facility] First dose Branch on Wed06/20/21 at 0600, Until Discontinu ed, Routine rosuvastati 2020-09 Yes [id number] 40mg 40 mg, Univers n (CRESTOR) 0-08 Oral, QHS, it y of tablet 40 02:00: [place] dose [place] mg 00 on [facility] 06/19/21 at Branch 2100, Until Discontinu ed, Routine ferrous 2020-09 Yes [id number] 325mg 325 mg, Un chani sulfate 0-08 Oral, BID, ity of tablet 325 01:00: First dose [place] mg 00 on [facility] 06/19/21 at Branch 2000, Until Discontinu ed, Routine hydrALAZINE 2020-09- No [id number] 50mg 50 mg, Univers (APRESOLINE 0-08 10-08 Oral, BID, i ty of ) tablet 50 01:00: 02:31 1 dose, [place] mg 00 :00 First dose Medical (after Branch last modificati on) on [facility] 06/19/21 at 2000, Routine NaCl 0.9% 2020-09- No [id number] IV Univ ers (NS) IV 0-07 10-08 [...] 00 First dose Medical (HumaLOG) + on [facility] 06/19/21 at Testing 1200, Until Discontinu ed, Routine glucagon 2020-09 Yes 1mg 1 mg, Univers (GLUCAGEN 0-07 Intramuscu ity of DIAGNOSTIC 15:05: lar, PRN, [place] KIT) 01 Starting Medical injection 1 on [facility] Branch mg 06/19/21 at 1005, Until Discontinu ed, LOBO, Blood Glucose < or = 70 mg/dL and patient is unable to swallow or has mental changes. dextrose 50 2020-09 Yes 25mL 25 mL, Univ ers % in water 0-07 Slow IV ity of (D50W) 15:05: Push, PRN, [place] injection 01 Starting Medica l 25 mL on [facility] 06/19/21 at 1005, Until Discontinu ed, LOBO, Blood Glucose < or = 70 mg/dL and patient is unable to swallow or has mental status changes. cholecalcif 2020-09 Yes [id number] 2000U 2,000 Univers savanah 0-07 Units, ity of (vitamin 14:45: Oral, [place] D3) tablet 00 DAILY, Medical 2,000 Units First dose Br anch on [facility] 06/19/21 at 0945, Until Discontinu ed, Routine acetaminoph 2020-09 Yes 650mg 650 mg, Un chani en 0-07 Oral, ity of (TYLENOL) 14:18: Q6HPRN, [place] tablet 650 47 Starting Medic al mg on [facility] Branch 06/19/21 at 0918, Until Discontinu ed, Routine, Pain (scale 1-3) glimepiride 2020-09 No 4mg Take 4 mg Univers 4 mg tablet 06-19 by mouth ity of 12:08: 00:00 daily with [place] 53 :00 breakfast. Medical Branch bisoproloL- 2020-09 No 1{tbl} Take 1 U nivers hydrochloro 06-19 tablet by it y of thiazide 12:08: 00:00 mouth 2 [place] 10-6.25 mg 53 :00 (two) Medical per tablet times Branch daily. Immunizations Ordered Filled Immunization Date Status Comments [facility] e Immunization Name Name Pneumococcal 2021-06-21 Completed [place] o f Polysaccharide, 00:00:00 [place] Med ical PPSV23 (PNEUMOVAX) Branch Pneumococcal 2021-06-21 Completed [place] o f Polysaccharide, 00:00:00 [place] Med ical PPSV23 (PNEUMOVAX) Branch Influenza Virus 2020-07-14 Completed Universit y of Vaccine Quad IM 00:00:00 [place] Med ical Multi-dose 6+ MO Branch Influenza Virus 2020-07-14 Completed Universit y of Vaccine Quad IM 00:00:00 [place] Med ical Multi-dose 6+ MO Branch Vital Signs Vital Name Observation Time Observation Value Comments Source HEIGHT 2021-08-14 00:15:00 172.7 cm WEIGHT 2021-08-14 00:15:00 79.379 kg HEIGHT 2021-08-13 23:00:00 172.7 cm WEIGHT 2021-08-13 23:00:00 79.379 kg HEIGHT 2021-08-14 00:15:00 172.7 cm WEIGHT 2021-08-14 00:15:00 79.379 kg HEIGHT 2021-08-13 23:00:00 172.7 cm WEIGHT 2021-08-13 23:00:00 79.379 kg Heart rate 2021-06-21 14:00:00 88 /min [facility] Respiratory rate 2021-06-21 14:00:00 13 /min [facility] Oxygen saturation in 2021-06-21 14:00:00 98 /min [facility] Arterial blood by [facility] Pulse oximetry Branch Systolic blood 2021-06-21 13:02:00 151 mm[Hg] Univer sity [facility] Diastolic blood 2021-06-21 13:02:00 75 mm[Hg] [place] [facility] Body temperature 2021-06-21 13:02:00 36.22 Yadira [facility] Body weight 2021-06-20 09:51:00 82.464 kg [facility] BMI 2021-06-20 09:51:00 27.64 kg/m2 [facility] Body height 2021-06-19 20:00:00 172.7 cm [facility] Procedures Procedure Date / Time Performing Clinician Source Performed POCT GLUCOSE (AUTOMATED) 2021-06-21 13:21:00 Magdaleno Hughes [facility] MAGNESIUM 2021-06-21 10:35:00 Delvis, [facility] OSMOLALITY URINE 2021-06-21 10:35:00 Delvis, [facility] RENAL PANEL 2021-06-21 10:35[facility] 2021-06-21 [facility]:35[id number], K, CL, CO2[facility] [place] POTASSIUM, URINE RANDOM 2021-06-21 10:35:00 Delvis, [facility] SODIUM, URINE RANDOM 2021-06-21 10:35:00 Delvis [facility] ELECTROLYTES PANEL 2021-06-21 01:20:[facility] ([id number]NA, K, CL, CO2) [facility] [place] POCT GLUCOSE (AUTOMATED) 2021-06-21 01:14:00 Magdaleno Hughes [facility] POCT GLUCOSE (AUTOMATED) 2021-06-20 22:05:00 Magdaleno Hughes [facility] ELECTROLYTES PANEL 2021-06-20 17:24[id number]NA, K, CL, CO2) Medical Branch OSMOLALITY URINE 2021-06-20 10:13:00 Delvis, [facility] POTASSIUM, URINE RANDOM 2021-06-20 10:13:00 Delvis, [facility] SODIUM, URINE RANDOM 2021-06-20 10:13:00 Delvis, [facility] MAGNESIUM 2021-06-20 10:12:00 Delvis [facility] VITAMIN B12, LEVEL 2021-06-20 10:12:00 Magdaleno Hughes [facility] FOLATE 2021-06-20 10:12:00 Ted [facility] RENAL PANEL 2021-06-20 10:12:00 Delvis [facility] VITAMIN D, 25-OH 2021-06-20 10:12:00 Ted [facility] ELECTROLYTES PANEL 2021-06-20 03:25:00 Delvis, [facility] ([id number])(NA, K, CL, CO2) [facility] POCT GLUCOSE (AUTOMATED) 2021-06-20 02:30:00 Magdaleno Hughes [facility] POCT GLUCOSE (AUTOMATED) 2021-06-20 01:12:00 Magdaleno Hughes [facility] POCT GLUCOSE (AUTOMATED) 2021-06-19 22:34:00 Magdaleno Hughes [facility] ELECTROLYTES PANEL 2021-06-19 21:21:00 [facility] ([id number]NA, K, CL, CO2) [facility] POCT GLUCOSE (AUTOMATED) 2021-06-19 16:58:00 Magdaleno Hughes [facility] POCT GLUCOSE (AUTOMATED) 2021-06-19 14:31:00 Magdaleno Hughes [facility] PHOSPHORUS 2021-06-19 14:17:00 Delvis [facility] CREATINE KINASE 2021-06-19 14:17:00 Ted [facility] URIC ACID 2021-06-19 14:17:00 Delvis, [facility] MAGNESIUM 2021-06-19 14:17:00 Delvis [facility] FERRITIN SERUM 2021-06-19 14:17:00 Magdaleno Hughes [facility] OSMOLALITY, SERUM OR 2021-06-19 14:17:00 Delvis, [facility] PLASMA [facility] OSMOLALITY URINE 2021-06-19 14:17:00 Delvis [facility] TROPONIN I 2021-06-19 14:17:00 Delvis [facility] THYROID STIMULATING 2021-06-19 14:17:00 Magdaleno Hughes [facility] HORMONE [facility] COMP. METABOLIC PANEL 2021-06-19 14:17:00 [id number] [place] IRON PANEL 2021-06-19 14:17:00 Ted [facility] DIFF CONSULT 2021-06-19 14:17:00 Ted [facility] INTERPRETATION [facility] CBC WITH DIFF 2021-06-19 14:17:00 Delvis [facility] GLYCOSYLATED HEMOGLOBIN 2021-06-19 14:17:00 Magdaleno Hughes [facility] (A1C) [facility] URINALYSIS MICROSCOPIC 2021-06-19 14:17:00 Delvis [facility] RETICULOCYTES AUTOMATED 2021-06-19 14:17:00 Magdaleno Hughes [facility] N-TERMINAL PRO-BNP 2021-06-19 14:17:00 [facility] POTASSIUM, URINE RANDOM 2021-06-19 14:17:00 Delvis [facility] SODIUM, URINE RANDOM 2021-06-19 14:17:00 [facility] PROTEIN CREAT RATIO URINE 2021-06-19 14:17:00 Michelle Edmondson [facility] Branch COVID-19 (ID NOW RAPID 2021-06-19 14:17:00 DelvisMichelle maya [facility] TESTING) Medical Branch LAB ONLY COVID 2021-06-19 14:17:00 [facility] [place] [facility] [place] INTERPRETATION [facility] PATIENT FINANCIAL 2021-06-19 13:01:56 [facility] NO SHOW OR MISSED 2021-06-19 13:01:37 Doctor Unassigned, [facility] APPOINTMENT POLICY [facility] ACKNOWLEDGEMENT NOTICE OF PRIVACY 2021-06-19 13:01:16 Doctor Unassigned, [facility] PRACTICES [facility] CONSENT/REFUSAL FOR 2021-06-19 13:01:02 Doctor Unassigned, [place] [facility] DIAGNOSIS AND TREATMENT [facility] ASSIGNMENT OF BENEFITS 2021-06-19 13:00:44 [facility] Encounters Start End Encounter Admission Attending Care Care Encounter Source Date/Time Date/Time Type Type Clinicians Facility Department ID 2021-07-15 Inpatient [facility] [id number] Univers 04:45:31 MAGDALENO david [facility] 2021-08-13 2021-08-[address] [facility] Cardiology [id number] [facility] 22:46:00 14:50:00 MAHBOOB 2021-08-13 2021-08-13 Outpatient BCM BCM [id number] [facility] 00:00:00 23:59:00 Erich candelaria of Medicin e 2021-07-08 2021-07-08 Outpatient [facility] [id number] [place] 00:00:00 00:00:[address] 2021-06-23 2021-06-23 Transition Siva Cantu [id number] Univers 00:00:00 00:00:00 of Care Pablo [place] [id number] ity of Ch[place] [id number] Lenard chaudhary [id number] [place] [address] Branch 2021-06-19 2021-06-21 [facility] [id number] Univers 08:50:00 11:15:00 Encounter Magdaleno Sexton [id number] [facility] [id number] [facility] [id number] [facility] 080 Branch 2021-06-13 2021-06-13 Outpatient NAUTIYAL, [facility] [id number] [place] 00:00:00 00:00:00 KIRTAN [address] 2021-05-16 2021-05-16 Outpatient NAUTIYAL, [facility] [id number] [place] 00:00:00 00:00:00 KIRTAN [address] 2021-04-18 2021-04-18 Outpatient NAUTIYAL, [facility] [id number] [place] 00:00:00 00:00:00 KIRTAN [address] 2021-03-21 2021-03-21 Outpatient NAUTIYAL, [facility] [id number] [place] 00:00:00 00:00:00 KIRTAN [address] 2021-02-21 2021-02-21 Outpatient NAUTIYAL, [facility] [id number] [place] 00:00:00 00:00:00 KIRTAN [address] 2021-01-17 2021-01-17 Outpatient NAUTIYAL, [facility] [id number] [place] 00:00:00 00:00:00 KIRTAN [address] 2020-12-20 2020-12-20 Outpatient NAUTIYAL, [facility] [id number] [place] 00:00:00 00:00:00 KIRTAN [address] 2020-12-12 2020-12-12 Outpatient ROBBEN, [facility] [id number] [place] 00:00:00 00:00:00 ED 061 Me thodi 2020-11-21 2020-11-21 Outpatient [facility] [id number] [place] 00:00:00 00:00:[address] 2020-11-15 2020-11-15 Outpatient NAUTIYAL, [facility] [id number] [place] 00:00:00 00:00:00 KIRTAN [address] 2020-10-11 2020-10-11 Outpatient NAUTIYAL, [facility] [id number] [place] 00:00:00 00:00:00 KIRTAN [address] 2020-09-12 2020-09-12 Outpatient NAUTIYAL, [facility] [id number] [place] 00:00:00 00:00:00 KIRTAN [address] 2020-08-16 2020-08-16 Outpatient NAUTIYAL, [facility] [id number] [place] 00:00:00 00:00:00 KIRTAN [address] 2020-08-06 2020-08-06 Outpatient NAUTIYAL, [facility] [id number] [place] 00:00:00 00:00:00 KIRTAN [address] 2020-07-19 2020-07-19 Outpatient NAUTIYAL, [facility] [id number] [place] 00:00:00 00:00:00 KIRTAN [address] 2020-06-21 2020-06-21 Outpatient NAUTIYAL, [facility] [id number] [place] 00:00:00 00:00:00 KIRTAN [address] 2020-05-24 2020-05-24 Outpatient NAUTIYAL, [facility] [id number] [place] 00:00:00 00:00:00 KIRTAN [address] 2020-04-26 2020-04-26 Outpatient NAUTIYAL, [facility] [id number] [place] 00:00:00 00:00:00 KIRTAN [address] 2020-03-22 2020-03-22 Outpatient NAUTIYAL, [facility] [id number] [place] 00:00:00 00:00:00 KIRTAN [address] 2020-02-23 2020-02-23 Outpatient NAUTIYAL, [facility] [id number] [place] 00:00:00 00:00:00 KIRTAN [address] 2020-02-02 2020-02-02 Outpatient NAUTIYAL, [facility] [id number] [place] 00:00:00 00:00:00 KIRTAN [address] 2020-01-26 2020-01-26 Outpatient NAUTIYAL, [facility] [id number] [place] 00:00:00 00:00:00 KIRTAN [address] 2019-12-29 2019-12-29 Outpatient NAUTIYAL, [facility] [id number] [place] 00:00:00 00:00:00 KIRTAN [address] 2019-11-24 2019-11-24 Outpatient MIRA [facility] [id number] [place] 00:00:00 00:00:00 PEREZ [address] Results Test Description Test Time Test Comments Results Result Comments Source POCT-GLUCOSE METER 2021-08-15 11:33:36 Test Item Value Reference Range Interpretation Comme nts POC-GLUCOSE METER (BEAKER) 132 mg/dL 70-110 H : TESTED AT [facility] [address] [facility] (test code = 1538) [facility] X, [address]: Dependency Counselor/Techni doyle ID = [id number] for Anne Gibson POCT-GLUCOSE [id number] 06:03:47 Test Item Value Reference Range Interpretation Comments POC-GLUCOSE METER 121 mg/dL 70-110 H : TESTED A T [facility] 67[address] (BEAKER) (test code = [place], 1538) [address]: Dependency Counselor/Techni doyle ID = [id number] for UG PEDRO DURAN BASIC METABOLIC [id number] 06:01:00 Test Item Value Reference Range Interpretation [...] S NOT APPLICABLE FOR DIALYSIS PATIEN TS. Dependency Counselor ID - JEAN CARLOS GPOCT-GLUCOSE [id number] 21:05:06 Test Item Value Reference Range Interpretation Comments POC-GLUCOSE METER 115 mg/dL 70-110 H : TESTED A T [facility] 6720 (BEAKER) (test code = [facility], 1538) [address]: Dependency Counselor/Techni doyle ID = [id number] for PEDRO SCHWAB POCT-GLUCOSE [id number] 19:02:49 Test Item Value Reference Range Interpretation Comments POC-GLUCOSE METER 144 mg/dL 70-110 H : TESTED A T [facility] 6720 (BEAKER) (test code = [facility], 1538) 80946: Dependency Counselor/Techni doyle ID = [id number] for Belen Miner POCT-GLUCOSE [id number] 16:51:49 Test Item Value Reference Range Interpretation Comments POC-GLUCOSE METER 185 mg/dL 70-110 H : TESTED A T [facility] 6720 (BEAKER) (test code = [facility], 1538) 97360: Dependency Counselor/Techni doyle ID = [id number] for Re Adriana jefferson [facility], MULTI, PHARM, [id number] 15:15:00Unlisted Reason for Exam - Click Yes and Enter Reason Below->No [facility] : 1960 Sex: MFINAL REPORT PROCEDURE: MYOCARDIAL PERFUSION SPECT IMAGING (Rest/Stress)CPT CODE: 18682 INDICATION: CAD risk, intermediate risk, Chest pain [...] MDReport Verified Date/Time: 08/14/2021 15:15:39 Reading Location: [address] Reading Room HEMOGLOBIN [id number] 10:49:00 Test Item Value Reference Range Interpretation Comments HEMOGLOBIN A1C (LIVE) (test code = 5.5 % 4.3-6.1 368) POCT-GLUCOSE [id number] 09:34:32 Test Item Value Reference Range Interpretation Comments POC-GLUCOSE METER 145 mg/dL 70-110 H : TESTED A T [facility] 6720 (LIVE) (test code = [place], 1538) [address]: Dependency Counselor/Techni doyle ID = [id number] for ROSSI FISCHER HIGH SENSITIVITY TROPONIN [id number] 05:11:36 Test Item Value Reference Range Interpretation Comments HIGH SENSITIVITY 26 pg/ml See_Comment [Automated message] TROPONIN I (test code = The system which [id number]) generated this result transmitted ref erence range: <=35. Th e reference range was not used to int erpret this result as normal/abnormal . Dependency Counselor ID - GISELL Maya ANIMAL KILLER STAT High Sensitivity Troponin-I results should be used in conjunction with other diagnostic information such as ECG, clinical observations and information, and patient symptoms to aid in the diagnosis of NC.LIPID [id number] 05:07:50 Test Item Value Reference Range Interpretation [...] Borderline 130-159 High 160-189 Very High >=190 Dependency Counselor ID - GISELL MBASIC METABOLIC [id number] 05:07:49 Test Item Value Reference Range Interpretation [...] S NOT APPLICABLE FOR DIALYSIS PATIEN TS. Dependency Counselor ID - GISELL [id number] 05:07:49 Test Item Value Reference Range Interpretation Comments MAGNESIUM (BEAKER) (test code = 2.2 mg/dL 1.6-2.6 627) Dependency Counselor ID - GISELL MCBC W/PLT COUNT & AUTO [id number] 04:44:58 Test Item Value Reference Range Interpretation [...] PERCENT (BEAKER) (test code = 2801) PROTHROMBIN [id number] 00:46:16 Test Item Value Reference Range Interpretation Comments PROTIME (BEAKER) 14.4 seconds 11.9-14.2 H (test code = 759) INR (BEAKER) (test 1.14 See_Comment [Automat ed message] code = 370) The system [employer] generated this result transmitted ref erence range: <=5.90. The reference range was not used to int erpret this result as normal/abnormal . RECOMMENDED COUMADIN/WARFARIN INR THERAPY RANGESSTANDARD DOSE: 2.0 - 3.0 Includes: PROPHYLAXIS forvenous thrombosis, systemic embolization; TREATMENT for venous thrombosis and/or pulmonary embolus.HIGH RISK: Target INR is 2.5-3.5 for patients with mechanical heart valves.SARS-COV2/RT-PCR ([facility]) 2021-08-14 00:26:40 Test Item Value Reference Range Interpretation Comments SARS-COV2/RT-PCR Negative Negative The SARS-Co V-2 target (test code = nucleic acids a re not [id number]) detected in thi s specimen. Negative result [...] revoked sooner. Fact Sheet for Healthcare Providers: https://www.[employer]/Documents/Xpert%20Xpress%20SARS%20CoV-2/Fact%20Sheets/302-3802%20SARS-COV -2%20HEALTHCARE%20PROVIDERS%20FACT%20SHEET.pdf Fact Sheet for Healthcare Patients: https://www.[employer]/Documents/Xpert %20Xpress%20SARS%20CoV-2/Fact%20Sheets/302-3801%30NRMY-KPR-6%20PATIENT%20FACT%20 SHEET.pdfRAD, CHEST, 1 VIEW, NON [id number] 00:12:00Reason for exam:- >CPShould this be performed at the bedside?->Yes [facility] 1960 [...] MDReportVerified Date/Time: 08/14/2021 00:12:28 HIGH SENSITIVITY TROPONIN [id number] 23:42:44 Test Item Value Reference Range Interpretation Comments HIGH SENSITIVITY 38 pg/ml See_Comment H [Automated message] TROPONIN I (test code = The system which [id number]) generated this result transmitted ref erence range: <=35. Th e reference range was not used to int erpret this result as normal/abnormal . Dependency Counselor ID - BSThe ANIMAL KILLER STAT High Sensitivity Troponin-I results should be used in conjunctionwith other diagnostic information such as ECG, clinical observations and information, and patient symptoms to aid in the diagnosis of NC.PT/[id number] 23:37:54 Test Item Value Reference Range Interpretation [...] for patients with mechanical heart valves.COMPREHENSIVE METABOLIC [id number] 23:36:03 Test Item Value Reference Range Interpretation [...] S NOT APPLICABLE FOR DIALYSIS PATIEN TS. Dependency Counselor ID - BSCBC W/PLT COUNT & AUTO [id number] 23:13:22 Test Item Value Reference Range Interpretation [...] Interpretation Comments POCT GLU (test code = 6118261601) 99 mg/dL 70-110 Lab Interpretation (test code = Normal 14448-3) [facility] hospitalGN[facility]2021-10-09 12:40:16 Test Item Value Reference Range Interpretation Comments MAGNESIUM (test code = 7595898208) 2.3 mg/dL 1.7-2.4 Lab Interpretation (test code = Normal 26633-4) [facility] [id number] 12:40:15 Test Item Value Reference Range Interpretation Comments ALBUMIN (test code = 3.6 g/dL 3.5-5.0 0003361818) CALCIUM (test code = 8.9 mg/dL 8.6-10.6 3258346216) CO2 TOTAL (test code = 23 mmol/L 23-31 4943653056) CREATININE (test code = 1.36 mg/dL 0.60-1.25 H 1293248860) GLUCOSE (test code = 87 mg/dL 70-110 3916830306) K (test code = 4.2 mmol/L 3.5-5.0 6483200845) NA (test code = 135 mmol/L 135-145 7053854099) BUN (test code = 34 mg/dL 7-23 H 6782892845) PHOSPHORUS (test code = 3.9 mg/dL 2.5-5.0 8151314021) eGFR (test code = mL/min/1.73m2 1043736218) ALYSIA (test code = ALYSIA) Association of [...] tests). Lab Interpretation Abnormal (test code = 56695-0) [facility] (20120)(NA, K, CL, CO2) 2021-06-21 12:39:35 Test Item Value Reference Range Interpretation Comments NA (test code = 0702082343) 135 mmol/L 135-145 K (test code = 4018253961) 4.2 mmol/L 3.5-5.0 CL (test code = 1908525880) 107 mmol/L 98-108 CO2 TOTAL (test code = 5668565578) 23 mmol/L 23-31 AGAP (test code = 6857993966) 2-16 Lab Interpretation (test code = Normal 28246-6) [facility] (27877)(NA, K, CL, CO2) 2021-06-21 02:05:41 Test Item Value Reference Range Interpretation Comments NA (test code = 1255990792) 130 mmol/L 135-145 L K (test code = 9175908302) 4.2 mmol/L 3.5-5.0 CL (test code = 4399162030) 99 mmol/L 98-108 CO2 TOTAL (test code = 5532217685) 23 mmol/L 23-31 AGAP (test code = 7003034913) 2-16 Lab Interpretation (test code = Abnormal 85462-4) [facility] GLUCOSE (AUTOMATED)2021-06-21 01:32:17 Test Item Value Reference Range Interpretation Comments POCT GLU (test code = 2789282894) 163 mg/dL 70-110 H Lab Interpretation (test code = Abnormal 85661-6) [facility] GLUCOSE (AUTOMATED)2021-06-21 01:32:11 Test Item Value Reference Range Interpretation Comments POCT GLU (test code = 1604388762) 111 mg/dL 70-110 H Lab Interpretation (test code = Abnormal 37915-4) [facility]ULT [id number] 19:50:07 ABSOLUTE LYMPHOPENIA. NORMOCYTIC NORMOCHROMIC ANEMIA. PLATELETS ARE UNREMARKABLE.[facility] B12, [id number] 19:49:05 Test Item Value Reference Range Interpretation Comments VIT B12 (test code = 687 pg/mL 240-930 0652961689) ALYSIA (test code = ALYSIA) Biotin has been reported to cause a positive bias, interpret results relative to patient's use of biotin. Lab Interpretation (test Normal code = 30324-2) [facility] D, [id number] 19:16:59 Test Item Value Reference Range Interpretation Comments VIT D 25OH (test code = 17 ng/mL 25-80 L 97864-8) ALYSIA (test code = ALYSIA) Deficiency: <20 ng/mLInsufficiency: 20-24 ng/mLOptimal: 25-80 ng/mL Lab Interpretation (test Abnormal code = 02677-6) [facility] PANEL (89094)(NA, K, CL, CO2) 2021-06-20 18:30:32 Test Item Value Reference Range Interpretation Comments NA (test code = 4576500031) 127 mmol/L 135-145 L K (test code = 9482656085) 4.4 mmol/L 3.5-5.0 CL (test code = 7619207522) 97 mmol/L 98-108 L CO2 TOTAL (test code = 3943117804) 20 mmol/L 23-31 L AGAP (test code = 1648843953) 2-16 Lab Interpretation (test code = Abnormal 35515-0) [facility]2021-06-20 18:02:33 Test Item Value Reference Range Interpretation Comments POCT GLU (test code = 8053524161) 118 mg/dL 70-110 H Lab Interpretation (test code = Abnormal 34461-5) [facility] GLUCOSE (AUTOMATED)2021-06-20 18:02:33 Test Item Value Reference Range Interpretation Comments POCT GLU (test code = 4429966043) 181 mg/dL 70-110 H Lab Interpretation (test code = Abnormal 09258-0) [facility]2021-[facility] 16:36:31 Test Item Value Reference Range Interpretation Comments FOLATE SER (test code = >20.0 3.0-20.0 H Biot in has been 7615040930) reported to cau se a positive bias, interpret resul ts relative to patient's use o f biotin. Lab Interpretation (test Abnormal code = 66918-6) [facility] [id number] 12:37:06 Test Item Value Reference Range Interpretation Comments ALBUMIN (test code = 3.8 g/dL 3.5-5.0 5052909552) CALCIUM (test code = 8.7 mg/dL 8.6-10.6 4856629128) CO2 TOTAL (test code = 20 mmol/L 23-31 L 6795891156) CREATININE (test code = 1.64 mg/dL 0.60-1.25 H 0357035998) GLUCOSE (test code = 82 mg/dL 70-110 6051661497) K (test code = 4.1 mmol/L 3.5-5.0 6397673008) NA (test code = 126 mmol/L 135-145 L 2255819842) BUN (test code = 43 mg/dL 7-23 H 1425544192) PHOSPHORUS (test code = 4.2 mg/dL 2.5-5.0 9357291530) eGFR (test code = mL/min/1.73m2 2642076398) ALYSIA (test code = ALYSIA) Association of [...] tests). Lab Interpretation Abnormal (test code = 27380-5) [facility]2021-[facility] 12:37:06 Test Item Value Reference Range Interpretation Comments MAGNESIUM (test code = 8809186475) 2.3 mg/dL 1.7-2.4 Lab Interpretation (test code = Normal 05346-9) [facility] GLUCOSE (AUTOMATED)2021-06-20 12:01:50 Test Item Value Reference Range Interpretation Comments POCT GLU (test code = 8941552134) 114 mg/dL 70-110 H Lab Interpretation (test code = Abnormal 14089-4) [facility] GLUCOSE (AUTOMATED)2021-06-20 04:48:58 Test Item Value Reference Range Interpretation Comments POCT GLU (test code = 9631541555) 137 mg/dL 70-110 H Lab Interpretation (test code = Abnormal 57245-8) [facility] HospitalELECTROTES PANEL (84391)(NA, K, CL, CO2) 2021-06-20 04:41:11 Test Item Value Reference Range Interpretation Comments NA (test code = 5485289164) 122 mmol/L 135-145 L K (test code = 8274552027) 4.0 mmol/L 3.5-5.0 CL (test code = 5818532569) 94 mmol/L 98-108 L CO2 TOTAL (test code = 0838824730) 20 mmol/L 23-31 L AGAP (test code = 2649579540) 2-16 Lab Interpretation (test code = Abnormal 49599-8) [facility] GLUCOSE (AUTOMATED)2021-06-20 02:04:20 Test Item Value Reference Range Interpretation Comments POCT GLU (test code = 2614877695) 166 mg/dL 70-110 H Lab Interpretation (test code = Abnormal 02578-0) [facility]LECT[facility]TES PANEL (88139)(NA, K, CL, CO2) 2021-06-19 22:21:27 Test Item Value Reference Range Interpretation Comments NA (test code = 7519025830) 120 mmol/L 135-145 L K (test code = 4155397644) 4.3 mmol/L 3.5-5.0 CL (test code = 5176452842) 90 mmol/L 98-108 L CO2 TOTAL (test code = 4881922743) 22 mmol/L 23-31 L AGAP (test code = 4236181977) 2-16 Lab Interpretation (test code = Abnormal 14215-0) [facility] HospitalOSMOLALITY, SERUM OR [id number] 20:32:51 Test Item Value Reference Range Interpretation Comments OSMOLALITY (test code = See_Comment L [Au tomated message] 8358102904) The system [employer] generated this result transmitted ref erence range: 278 - 30 5 mOsm/kg. The reference range was not used to int erpret this result as normal/abnormal . Lab Interpretation (test Abnormal code = 74823-2) [facility] HospitalRETICULOCYTES [id number] 18:52:41 Test Item Value Reference Range Interpretation Comments RETIC Count Automated 4.16 % 0.59-2.24 H (test code = 4824926948) RETIC Absolute Count See_Comment H [Autom ated message] (test code = 6789806618) The system which generated this result transmitted ref erence range: 0.0260 - 0.1170 10*6/?L. The reference range was not used to int erpret this result as normal/abnormal . IRF % (test code = 24.00 % 2.00-19.10 H 1358057452) RETIC-HE (test code = 35.8 pg 27.3-36.4 6535844649) Lab Interpretation (test Abnormal code = 94942-2) [facility] HospitalFERRITIN [id number] 18:12:11 Test Item Value Reference Range Interpretation Comments FERRITIN (test code = 245.0 ng/mL 18.0-464.0 9424488700) ALYSIA (test code = ALYSIA) Biotin has been reported to cause a negative bias, interpret results relative to patient's use of biotin. Lab Interpretation (test Normal code = 87827-6) [facility] HospitalTHYROID STIMULATING [id number] 18:07:51 Test Item Value Reference Range Interpretation Comments TSH (test code = See_Comment [Automated message] 3815671275) The system [employer] generated this result transmitted ref erence range: 0.45 - 4 .70 mIU/L. The refe rence range was not u sed to interpret this result as normal/abnor mal. Lab Interpretation (test Normal code = 25371-8) [facility] HospitalIRON [id number] 17:46:47 Test Item Value Reference Range Interpretation Comments IRON (test code = 3793866790) 38 ug/dL 50-160 L TIBC (test code = 8217036924) 320 ug/dL 250-410 % FE SAT (test code = 1717308405) 12 % 20-50 L Lab Interpretation (test code = Abnormal 61493-5) [facility] HospitalCREATINE [id number] 17:37:28 Test Item Value Reference Range Interpretation Comments CK (test code = 3564634974) 204 U/L 33-194 H Lab Interpretation (test code = Abnormal 83395-5) [facility] HospitalGlycosylated Hemoglobin (A1C)2021-06-19 15:28:01 Test Item Value Reference Range Interpretation Comments HGB A1C (test code = 5.5 % 4.0-5.7 4548-4) ALYSIA (test code = ALYSIA) Reference RangesNormal: <5.7%Prediabetes: 5.7 - 6.4%Diabetes: > 6.5% Lab Interpretation (test Normal code = 07708-3) [facility] HospitalTROPONIN [id number] 15:23:11 Test Item Value Reference Interpretation Comments Range TROPONIN I (test 0.006 ng/mL See_Comment [Automated code = 6171087564) message] The system which generated this result [...] biotin. Lab Interpretation Normal (test code = 43403-1) [facility] HospitalN-TERMINAL [id number] 15:19:46 Test Item Value Reference Range Interpretation Comments NT-proBNP (test code 610 pg/mL See_Comment H [Autom ated = 7544532070) message] The system which generated this result transmitted reference range : <=125. The reference range was not used to interpret this result as normal/abnormal . ALYSIA (test code = ALYSIA) Biotin has been reported to cause a negative bias, interpret results relative to patient's use of biotin. Lab Interpretation Abnormal (test code = 44077-1) [facility]MAGN[facility]IUM2021-10-07 15:12:30 Test Item Value Reference Range Interpretation Comments MAGNESIUM (test code = 8124285816) 2.2 mg/dL 1.7-2.4 Lab Interpretation (test code = Normal 74796-0) [facility]. METABOLIC PANEL (10604)2021-06-19 15:12:25 Test Item Value Reference Range Interpretation Comments NA (test code = 120 mmol/L 135-145 L 2703663169) K (test code = 4.3 mmol/L 3.5-5.0 3125944927) CL (test code = 87 mmol/L 98-108 L 6250409447) CO2 TOTAL (test code = 22 mmol/L 23-31 L 0192098605) AGAP (test code = 2-16 3509168465) BUN (test code = 47 mg/dL 7-23 H 3697372918) GLUCOSE (test code = 110 mg/dL 70-110 3410071582) CREATININE (test code = 1.74 mg/dL 0.60-1.25 H 9098080460) TOTAL BILI (test code = 0.6 mg/dL 0.1-1.3 6104634564) CALCIUM (test code = 9.3 mg/dL 8.6-10.6 8279722096) T PROTEIN (test code = 7.2 g/dL 6.3-8.2 0570019625) ALBUMIN (test code = 4.6 g/dL 3.5-5.0 8747589835) ALK PHOS (test code = 99 U/L 34-122 2615270457) ALTv (test code = 48 U/L 5-50 1742-6) AST(SGOT) (test code = 39 U/L 13-40 5956491944) eGFR (test code = mL/min/1.73m2 7774099368) ALYSIA (test code = ALYSIA) Association of [...] tests). Lab Interpretation Abnormal (test code = 96654-5) [facility] HospitalURIC [id number] 15:12:04 Test Item Value Reference Range Interpretation Comments URIC ACID (test code = 0237838818) 9.8 mg/dL 3.6-8.0 H Lab Interpretation (test code = Abnormal 06837-5) [facility]PHOSPHORUS2021-10-07 15:12:04 Test Item Value Reference Range Interpretation Comments PHOSPHORUS (test code = 4821135658) 4.4 mg/dL 2.5-5.0 Lab Interpretation (test code = Normal 25066-6) [facility] HospitalCBC WITH [id number] 14:38:02 Test Item Value Reference Range Interpretation [...] RDW-SD (test code = 38.5 fL 38.5-51.6 97168-0) RDW-CV (test code = 12.1 % 12.1-15.4 788-0) PLT (test code = See_Comment [Automated 777-3) message] The sy stem which generated this result transmitted reference range : 150 - 328 10*3/ ?L. The reference r kathe was not used to interpret this result as normal/abnormal . MPV (test code = 10.0 fL 9.8-13.0 23641-0) NRBC/100 WBC (test See_Comment [Automat ed code = 2685108518) message] The system which generated this result transmitted reference range : 0.0 - 10.0 /100 WBCs. The refer ence range was not u sed to interpret th is result as normal/abnormal . NRBC x10^3 (test code <0.01 See_Comment [Auto mated = 6823974275) message] The s ystem which generated this result transmitted reference range : 10*3/?L. The reference range was not used to interpret this result as normal/abnormal . GRAN MAT (NEUT) % 71.7 % (test code = 770-8) IMM GRAN % (test code 0.60 % = 8819242795) LYMPH % (test code = 12.4 % 736-9) MONO % (test code = 12.1 % 5905-5) EOS % (test code = 2.7 % 713-8) BASO % (test code = 0.5 % 706-2) GRAN MAT x10^3(ANC) 4.44 10*3/uL 1.99-6.95 (test code = 7348779108) IMM GRAN x10^3 (test 0.04 10*3/uL 0.00-0.06 code = 7467673610) LYMPH x10^3 (test code 0.77 10*3/uL 1.09-3.23 L = 731-0) MONO x10^3 (test code 0.75 10*3/uL 0.36-1.02 = 742-7) EOS x10^3 (test code = 0.17 10*3/uL 0.06-0.53 711-2) BASO x10^3 (test code 0.03 10*3/uL 0.01-0.09 = 704-7) Lab Interpretation Abnormal (test code = 64013-8) [facility] [id number] 11:32:00Surgical Pathology Report Case: [id number] Authorizing Provider: Abran Berrios MD Collected: 02/03/2017 0845 Ordering Location: [facility] Diagnostic Imaging Received: 02/03/2017 0915 Pathologist: Logan [...] diabetic nephropathy. J Am Soc Nephrol 21:556-563, 2009.88061, 72990 x3, 27577, 58312 x7, 07230Vlkatnqvoho, DM and serum creatinine 1.3 to 1.4Left [...] or vascular staining. Fibrinogen: diffuse, glomerular and tubulointerstitial,weak.Earth: negative glomeruli; rare small tubular casts are [...] segmentally effaced. Tubular basement membranes are thickened.POCT-GLUCOSE [id number] 09:15:00 Test Item Value Reference Range Interpretation Comments POC-GLUCOSE METER 140 mg/dL 70-110 H TESTED AT [address] ([place]) (test code [facility] = 1538) [address] [id number] 07:43:00 Test Item Value Reference Range Interpretation Comments PROTIME ([place]) (test code = 10.2 seconds 9.3-12.0 759) INR ([place]) (test code = 370) 1.0 <=5.9 PARTIAL THROMBOPLASTIN TIME 25.9 seconds 23.0-35.0 ([place]) (test code = 760) RECOMMENDED COUMADIN/WARFARIN INR THERAPY RANGESSTANDARD DOSE: 2.0 - 3.0 Includes: PROPHYLAXIS forvenous thrombosis, systemic embolization; TREATMENT for venous thrombosis and/or pulmonary embolus.HIGH RISK: Target INR is 2.5-3.5 for patients with mechanical heart valves.CBC W/PLT COUNT & AUTO DIFFERENTIAL 2017-02-03 07:39:00 Test Item Value Reference Range Interpretation Comments WHITE BLOOD CELL COUNT ([place]) 6.2 K/ L 4.0-10.0 (test code = 775) RED BLOOD CELL COUNT ([place]) 3.55 M/ L 4.20-5.80 L (test code = 761) HEMOGLOBIN ([place]) (test code = 11.2 GM/DL 13.0-16.8 L [...] L 0.00-0.20 (test code = 417) POCT-GLUCOSE [id number] 07:26:00 Test Item Value Reference Range Interpretation Comments POC-GLUCOSE METER 136 mg/dL 70-110 H TESTED AT [address] ([place]) (test code [facility] [place] = 1538) [address]"
[2021-08-30 16:12] LABS: Absolute Lymphocytes (CBC) 0.6 K/uL (0.7-4.9); Basophils % 0.7 % (0-1.3); Lymphocytes % 12.2 % (15.3-44.8); MPV 7.1 fL (7.6-11.3); Protime INR 1.03; RBC Red Blood Cell Count 3.32 M/uL (4.33-5.43)
[2021-08-30 16:36] LABS: ALT/SGPT 118 U/L (12-78); AST/SGOT 51 U/L (15-37); Albumin 3.7 g/dL (3.4-5.0); Alkaline Phosphatase 126 U/L (45-117); BUN Blood Urea Nitrogen 57 mg/dL (7-18); Bicarbonate 18 mmol/L (21-32); Bilirubin Direct < 0.1 mg/dL (0-0.2); Glucose Level 158 mg/dL (74-106); Magnesium 2.4 mg/dL (1.8-2.4); NT PRO-BNP 1013 pg/mL (<125); Potassium 4.7 mmol/L (3.5-5.1); Protein, Total 7.1 g/dL (6.4-8.2); Sodium Level 138 mmol/L (136-145); Troponin (Emerg Dept Use Only) < 0.02 ng/mL (0.0-0.045)
--- NOTE | 2021-08-30 16:42 | RAD REPORT ---
EXAM DESCRIPTION: RAD - Chest Single View - 08/30/2021 4:24 pm CLINICAL HISTORY: CHEST PAIN Chest pain. COMPARISON: Chest Single View dated 08/26/2021; Chest Single View dated 08/22/2021; Chest Single Vie w dated 08/17/2021; Chest Single View dated 08/13/2021 FINDINGS: Portable technique limits examination quality. The lungs are grossly clear. The heart is normal in size. No displaced fractures. IMPRESSION: No acute intrathoracic process suspected.
[2021-08-30 16:49] LABS: Bilirubin Total 0.3 mg/dL (0.2-1.0)
[2021-08-30] MEDS ORDERED: LORAZEPAM 1 MG TABLET ONE (20:38)
--- NOTE | 2021-08-30 20:47 | ER ---
Nurse's Notes [facility] Name: Ivan Parra Age: 61 yrs Sex: Male : 1960 Arrival Date: 08/30/2021 Time: 15:52 Bed 7 Private MD: Diagnosis: Chest pain, unspecified Presentation: 08/30 15:53 Chief complaint: Patient states: chest pain that began today. Pt self administered to ss rounds of SL nitro and EMS gave 324 ASA en route to ED. Chest pain is now 3/10 from 01/20. Pt also stated that he felt short of breath. has COVID. Took home COVID. Coronavirus screen: Client denies travel out of the [place] in the last 14 days. Ebola Screen: Patient denies exposure to infectious person. Patient denies travel to an Ebola-affected area in the 21 days before illness onset. Initial Sepsis Screen: Does the patient meet any 2 criteria? No. Patient's initial sepsis screen is negative. Does the patient have a suspected source of infection? No. Patient's initial sepsis screen is negative. Risk Assessment: Do you want to hurt yourself or someone else? Patient reports no desire to harm self or others. Onset of symptoms was August 30, 2021. Care prior to arrival: IV initiated. 20 GA, in the right antecubital area, Glucose check: 175. 15:53 Method Of Arrival: Ambulatory 15:53 Acuity: KERWIN 2 Triage Assessment: 16:02 General: Appears in no apparent distress. uncomfortable, Behavior is cooperative, jl7 anxious. Pain: Complains of pain in mid-sternal area Pain does not radiate. Pain currently is 8 out of 10 on a pain scale. Quality of pain is described as pressure, Pain began 3 hours ago. Is continuous, Aggravated by inspiration. Neuro: Level of Consciousness is awake, alert, obeys commands, Oriented to person, place, time, situation. Cardiovascular: Patient's skin is warm and dry. Rhythm is regular. Respiratory: Airway is patent Respiratory effort is even, unlabored, Respiratory pattern is regular, symmetrical. Derm: Skin is pink, warm \T\ dry. Historical: - Allergies: 15:56 No Known Allergies; ss - PMHx: 15:56 angina pectoris; ss - PSHx: 15:56 Cardiac Stents; ss - Immunization history:: Client reports receiving the 2nd dose of the Covid vaccine. - Social history:: Smoking status: Patient denies any tobacco usage or history of. Screenin:04 Abuse screen: Denies threats or abuse. Denies injuries from another. Nutritional jl7 screening: No deficits noted. Tuberculosis screening: No symptoms or risk factors identified. Fall Risk IV access (20 points). Total Contreras Fall Scale indicates No Risk (0-24 pts). Assessment: 16:04 General: See triage. jl7 19:35 Reassessment: Patient is alert, oriented x 3, equal unlabored respirations, skin lp1 warm/dry/pink. Patient states feeling better. 21:21 Reassessment: Patient is alert, oriented x 3, equal unlabored respirations, skin lp1 warm/dry/pink. Patient denies pain at this time. Patient states feeling better. Patient states symptoms have improved. Vital Signs: 15:53 Resp 16; Temp 98.2(TE); Weight 79.38 kg; Height 5 ft. 8 in. (172.72 cm); Pain 3/10; ss 16:02 BP 155 / 81; Pulse 100; Resp 17; Pulse Ox 100% on R/A; jl7 16:45 BP 142 / 72; Pulse 95; Resp 18; Pulse Ox 99% ; jl7 17:30 BP 125 / 68; Pulse 88; Resp 18; Pulse Ox 97% ; jl7 18:15 BP 130 / 76; Pulse 95; Resp 15; Pulse Ox 98% ; jl7 19:36 BP 129 / 72; Pulse 91; Resp 22; Pulse Ox 98% on R/A; lp1 21:21 BP 148 / 81; Pulse 91; Resp 18; Pulse Ox 100% on R/A; Pain 0/10; lp1 15:53 Body Mass Index 26.61 (79.38 kg, 172.72 cm) ED Course: 15:52 Patient arrived in ED. ss 15:53 Leoncio Ayers NP is PHCP. pm1 15:53 Nabor White MD is Attending Physician. pm1 15:56 Triage completed. ss 15:56 Arm band placed on right wrist. ss 16:00 Maintain EMS IV. Dressing intact. Good blood return noted. Site clean \T\ dry. jl7 16:00 Patient maintains SpO2 saturation greater than 95% on room air. jl7 16:01 Patient has correct armband on for positive identification. Bed in low position. Call [facility] light in reach. Side rails up X 1. Warm blanket given. brake lining maker on. Pulse ox on. NIBP on. 16:02 Richard Hart RN is Primary Nurse. 7 16:02 Initial lab(s) drawn, by ED staff, sent to lab. EKG done, by ED staff, reviewed by [facility] Nabor White MD. 16:03 Liver (Hepatic) Function Sent. [facility] 16:03 Magnesium Sent. [facility] 16:03 Basic Metabolic Panel Sent. [facility] 16:03 CBC with Automated Diff Sent. [facility] 16:03 Basic Metabolic Panel Sent. [facility] 16:03 CBC with Diff Sent. [facility] 16:03 LFT's Sent. [facility] 16:03 Magnesium Sent. [facility] 16:03 XRAY Chest (1 view) Sent. [facility] 16:03 NT PRO-BNP Sent. [facility] 16:03 PT-INR Sent. [facility] 16:03 Troponin (emerg Dept Use Only) Sent. [facility] 16:24 XRAY Chest (1 view) In Process Unspecified. EDMS 19:36 No provider procedures requiring assistance completed. lp1 21:22 IV discontinued, No redness/swelling at site. Pressure dressing applied. lp1 Administered Medications: 20:53 Drug: Ativan (LORazepam) 1 mg Route: PO; 1 21:22 Follow up: Response: Medication administered at discharge. [facility] Outcome: 20:46 Discharge ordered by MD. pm1 21:22 Discharged to home ambulatory, with family. lp1 21:22 Condition: good 21:22 Discharge instructions given to patient, family, Instructed on discharge instructions, follow up and referral plans. Demonstrated understanding of instructions, follow-up care. 21:22 Patient left the ED. lp1 Signatures: Dispatcher [employer] EDMI Bambi Song RN RN ss Pena, Laura, RN RN 1 Leoncio Ayers, CLINICAL NURSE LEADER CLINICAL NURSE LEADER pm1 Trudi Morales [facility] Richard Hart RN RN jl7
--- NOTE | 2021-08-30 20:47 | EDPHYS ---
Physician Documentation [facility] Name: Ivan Parra Age: 61 yrs Sex: Male : 1960 Arrival Date: 08/30/2021 Time: 15:52 Bed 7 Private MD: ED Physician Nabor White HPI: 08/30 16:05 This 61 yrs old Male presents to ER via Ambulatory with complaints of Chest pm1 Pain. 16:05 The patient or guardian reports chest pain that is located primarily in the mid-sternal pm1 area. Onset: today. The pain does not radiate. Associated signs and symptoms: Pertinent positives: shortness of breath, with wearing N95 at home due to 's diagnosis of covid. The chest pain is described as sharp. Duration: The patient or guardian reports a single episode, that is still ongoing. Modifying factors: The symptoms are alleviated by nothing. the symptoms are aggravated by nothing. Severity of pain: in the emergency department the pain is unchanged. EMS care prior to arrival includes: nitroglycerin, x 2 with no relief of the chest pain. The patient has been recently seen by a physician: Dr. Jimenez yesterday, same complaint and had a stress test in the office. Patient is pending results. Historical: - Allergies: 15:56 No Known Allergies; ss - PMHx: 15:56 angina pectoris; ss - PSHx: 15:56 Cardiac Stents; ss - Immunization history:: Client reports receiving the 2nd dose of the Covid vaccine. - Social history:: Smoking status: Patient denies any tobacco usage or history of. ROS: 16:05 Constitutional: Negative for fever, chills, and weight loss. pm1 16:05 Abdomen/GI: Negative for abdominal pain, nausea, vomiting, diarrhea, and constipation, Back: Negative for injury and pain, MS/Extremity: Negative for injury and deformity, Skin: Negative for injury, rash, and discoloration, Neuro: Negative for headache, weakness, numbness, tingling, and seizure. 16:05 Cardiovascular: Positive for chest pain, Negative for edema, palpitations. 16:05 Respiratory: Positive for shortness of breath, Negative for cough. 16:05 All other systems are negative. Exam: 16:05 Constitutional: This is a well developed, well nourished patient who is awake, alert, pm1 and in no acute distress. Head/Face: Normocephalic, atraumatic. 16:05 Skin: Warm, dry with normal turgor. Normal color with no rashes, no lesions, and no evidence of cellulitis. MS/ Extremity: Pulses equal, no cyanosis. Neurovascular intact. Full, normal range of motion. 16:05 Eyes: Exam is negative for acute changes, Extraocular movements: no acute changes, Conjunctiva: no acute changes, no injection, Sclera: no acute changes, icterus, is not appreciated. 16:05 ENT: Exam is negative for acute changes, Mouth: no acute changes, Lips: normal, moist, Oral mucosa: normal, pink and intact, moist. 16:05 Chest/axilla: Inspection: normal, Palpation: tenderness, that is mild, of the mid-sternal area, that totally reproduces the patient's complaints. 16:05 Cardiovascular: Exam negative for acute changes, Rate: normal, Rhythm: regular, Pulses: no pulse deficits are appreciated, Heart sounds: normal, normal S1and S2, Edema: is not appreciated. 16:05 Respiratory: Exam negative for acute changes, respiratory distress, shortness of breath, Breath sounds: are clear throughout, no decreased breath sounds, no rales, rhonchi, no wheezing. 16:05 Abdomen/GI: Inspection: abdomen appears normal, Palpation: abdomen is soft and non-tender, in all quadrants. 16:05 Neuro: Exam negative for acute changes, Orientation: is normal, Mentation: is normal, Motor: is normal, moves all fours. Vital Signs: 15:53 Resp 16; Temp 98.2(TE); Weight 79.38 kg; Height 5 ft. 8 in. (172.72 cm); Pain 3/10; ss 16:02 BP 155 / 81; Pulse 100; Resp 17; Pulse Ox 100% on R/A; jl7 16:45 BP 142 / 72; Pulse 95; Resp 18; Pulse Ox 99% ; jl7 17:30 BP 125 / 68; Pulse 88; Resp 18; Pulse Ox 97% ; jl7 18:15 BP 130 / 76; Pulse 95; Resp 15; Pulse Ox 98% ; jl7 19:36 BP 129 / 72; Pulse 91; Resp 22; Pulse Ox 98% on R/A; lp1 21:21 BP 148 / 81; Pulse 91; Resp 18; Pulse Ox 100% on R/A; Pain 0/10; lp1 15:53 Body Mass Index 26.61 (79.38 kg, 172.72 cm) ss MDM: 16:05 Patient medically screened. pm1 16:15 Data reviewed: vital signs. pm1 20:15 Data interpreted: Pulse oximetry: on room air is 98 %. Interpretation: normal. 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 21:36 ED course: Patient can be discharged home since he had two negative troponin results pm1 today that were 4 hours apart, no EKG changes, patient admitted on 08/22/2021 and 08/26/2021 for chest pain and was discharged to follow-up with Dr. Jimenez in the clinic. During his admissions on 08/22/2021 he had a cardiac cath that showed patent stents that were placed on 07/18/[address] Jimenez. Patient also had a stress test performed in the office with Dr. Jimenez yesterday and he is pending results. Patient's symptom of chest pain resolved with Ativan given in the ER. 08/30 15:53 Order name: Basic Metabolic Panel pm1 08/30 15:53 Order name: CBC with Diff pm1 08/30 15:53 Order name: LFT's pm1 08/30 15:53 Order name: Magnesium pm1 08/30 15:53 Order name: NT PRO-BNP; Complete Time: 17:20 pm1 08/30 15:53 Order name: PT-INR; Complete Time: 16:15 pm1 08/30 15:53 Order name: Troponin (emerg Dept Use Only); Complete Time: 17:20 pm1 08/30 15:54 Order name: Basic Metabolic Panel; Complete Time: 17:20 EDMS 08/30 15:54 Order name: CBC with Automated Diff; Complete Time: 16:29 EDMS 08/30 15:54 Order name: Liver (Hepatic) Function; Complete Time: 17:20 EDMS 18 15:54 Order name: Magnesium; Complete Time: 17:20 EDMS 18 16:23 Order name: SARS-COV-2 RT PCR; Complete Time: 17:20 EDMS 18 19:44 Order name: Troponin (emerg Dept Use Only); Complete Time: 20:15 lp1 08/30 15:53 Order name: XRAY Chest (1 view); Complete Time: 16:45 pm1 08/30 15:53 Order name: EKG; Complete Time: 15:54 pm1 08/30 15:53 Order name: Cardiac monitoring; Complete Time: 16:02 pm1 08/30 15:53 Order name: EKG - Nurse/Tech; Complete Time: 16:03 pm1 08/30 15:53 Order name: IV Saline Lock; Complete Time: 16:03 pm1 08/30 15:53 Order name: Labs collected and sent; Complete Time: 16:02 pm1 08/30 15:53 Order name: O2 Per Protocol; Complete Time: 16:03 pm1 08/30 15:53 Order name: O2 Sat Monitoring; Complete Time: 16:03 pm1 Administered Medications: 20:53 Drug: Ativan (LORazepam) 1 mg Route: PO; lp1 21:22 Follow up: Response: Medication administered at discharge. lp1 Disposition: 08/31 08:40 Co-signature as Attending Physician, Nabor White MD I agree with the assessment and rn plan of care. Attestation: The patient's history, exam findings, diagnostics, and a summary of any interventions or procedures was reviewed in detail with Leocnio Ayers NP. Disposition Summary: 08/30/21 20:46 Discharge Ordered Location: Home pm1 Problem: new pm1 Symptoms: have improved pm1 Condition: Stable pm1 Diagnosis - Chest pain, unspecified pm1 Followup: pm1 - With: Emergency Department - When: As needed - Reason: Worsening of condition Followup: pm1 - With: Private Physician - When: 2 - 3 days - Reason: Recheck today's complaints, Continuance of care, Re-evaluation by your physician Discharge Instructions: - Discharge Summary Sheet pm1 - Nonspecific Chest Pain, Adult pm1 Forms: - Medication Reconciliation Form pm1 - Thank You Letter pm1 - Antibiotic Education pm1 - Prescription Opioid Use pm1 Signatures: Dispatcher [employer] EDMS Nabor White MD MD rn Smirch, Shelby, RN RN ss Maria Ventura RN RN lp1 Leoncio Ayers NP BOOKING OFFICER pm1 Corrections: (The following items were deleted from the chart) 08/30 16:23 16:07 CORONAVIRUS+BRZ ordered. EDMS EDMS
[2021-08-30 21:27] VITALS: TEMP 98.2
[2021-08-30 21:36] VITALS: BP 148/81; O2SAT 100
--- NOTE | 2021-09-01 08:12 | EKG ---
Test Date: 2021-08-30 Test Time: 15:57:44 Resourcing Consultant: DELISA MEASUREMENT RESULTS: Intervals: Rate: 99 WV: 168 QRSD: 70 QT: 342 QTc: 438 [place]: P: 35 WV: 168 QRS: 55 T: -47 INTERPRETIVE STATEMENTS: Normal sinus rhythm ST & T wave abnormality, consider inferolateral ischemia Abnormal ECG Compared to ECG 08/26/2021 01:33:46 Myocardial infarct finding no longer present ST (T wave) deviation still present Possible ischemia still present Electronically Signed On 09-01-21 08:11:17 [employer] by Cm Schroeder
== END 2021-08-30 21:22 | disposition home or self-care (01) ==
LOC: ER 15:52
DX: R07.9 Chest pain, unspecified (principal); Z20.822 Contact with and (suspected) exposure to COVID-19; Z95.818 Presence of other cardiac implants and grafts
CPT/HCPCS: 93005; 85025; 80048; 36415; 83735; 85610; 80076; 84484 ×2; 83880; 71045; 99285; U0003

== ENCOUNTER 2021-11-14 09:37 | Emergency (ER) | payer BC ==
--- OUTSIDE RECORDS SUMMARY | 2021-11-14 09:50 | XMS REPORT | Continuity of Care Document ---
:1960 Author Organization [facility] t Address [address] [place] [address] Dr. Licona[address] [place] [address] Care Team Providers Name Role Phone PARISH VÁSQUEZ Primary Care Physician Unavailable Tony Attending Clinician Unavailable SAUL Attending Clinician Unavailable ADITYA Attending Clinician Unavailable VIDA DUFFY Attending Clinician Unavailable Alondra HART, A Attending Clinician Unavailable Saul COATS Attending Clinician MIRA Attending Clinician Unavailable SHIVANI Attending Clinician Unavailable YANG Attending Clinician Unavailable Chriss Vásquez Admitting Clinician Unavailable SAUL Admitting Clinician Unavailable ADITYA Admitting Clinician Unavailable Saul COATS Admitting Clinician YANG Admitting Clinician Unavailable Payers Payer Name Policy Type Policy Number Effective Date Expiration Date S ource [employer] [place] - [id number] 2021 00:00:00 OUT OF STATE BCBS OS [id number] 2021 00:00:00 POS/PPO/EPO Problems Condition Condition Condition Status Onset Resolution Last Treating Co mments Source Name Details Category Date Date Treatment Clinician Date Hyponatrem Hyponatrem Disease Active 2020-09 U nivers ia ia 0-07 ity of syndrome syndrome 00:00: [place] [id number] Medical Branch Allergies, Adverse Reactions, Alerts Allergy Allergy Status Severity Reaction(s) Onset Inactive Treating Comm ents Source Name Type Date Date Clinician No Known DA Active U [facility] Allergie 1-12 Clear s 00:00: [address] No Known DA Active U [facility] Allergie 1-11 Clear s 00:00: Sawant 00 [facility] NO KNOWN Drug Active Univers ALLERGIE Class ity of S [facility] NO KNOWN Allergy Active [facility] ALLERGIE S Social History Social Habit Start Date Stop Date Quantity Comments Source Exposure to Not sure [facility] SARS-CoV-2 [facility] (event) Branch Tobacco use and 2021-06-19 2021-06-19 Never used Universit y of exposure 00:00:00 00:00:00 [facility] Alcohol intake 2021-06-19 2021-06-19 Ex-drinker [facility] 00:00:00 00:00:00 (finding) [facility] Sex Ass[birth year] At [birth year] Universit y of 00:00:00 00:00:00 [facility] Smoking Status Start Date Stop Date Source Never smoker [facility] Medications Ordered Filled Start Stop Current Ordering Indication Dosage Frequency Signature Comments Components Source Medication Medication Date Date Medication? Clinician (SIG) Name Name amLODIPine 2020-09 Yes [id number] 5mg Take 1 U nivers 5 mg tablet 0-10 tablet by ity of 00:00: mouth [place] 00 daily. Medical Branch cholecalcif 2020-09 Yes [id number] 2000U Take 2 Univers savanah, 0-10 tablets by ity of vitamin D3, 00:00: mouth [place] 25 mcg 00 daily. Medical (1,000 Branch unit) tablet lisinopriL 2020-09 Yes [id number] 5mg Take 1 U nivers 5 mg tablet 0-10 tablet by ity of 00:00: mouth [place] 00 daily. Medical Branch amLODIPine 2020-09 Yes [id number] 5mg Take 1 U nivers 5 mg tablet 0-10 tablet by ity of 00:00: mouth [place] 00 daily. Medical Branch cholecalcif 2020-09 Yes [id number] 2000U Take 2 Univers savanah, 0-10 tablets by ity of vitamin D3, 00:00: mouth [place] 25 mcg 00 daily. Medical (1,000 Branch unit) tablet lisinopriL 2020-09 Yes [id number] 5mg Take 1 U nivers 5 mg tablet 0-10 tablet by ity of 00:00: mouth [place] 00 daily. Medical Branch febuxostat 2020-09 Yes [id number] 40mg 40 mg, U nivers (ULORIC) 0-09 Oral, ity of tablet 40 14:00: DAILY, [place] mg 00 First dose Medical on Sat Branch 06/21/21 at 0900, Until Discontinu ed, Routine lisinopriL 2020-09 Yes [id number] 5mg 5 mg, Un chani (PRINIVIL,Z 0-09 [...] by mouth ity of tablet 11:52: daily. [place] [address] Medical Branch levocetiriz 2020-09 Yes 5mg Take 5 mg U nivers ine 5 mg 0-09 by mouth ity of tablet 11:52: daily. [place] [address] Medical Branch rosuvastati 2020-09 Yes 40mg Take 40 mg Univers n 40 mg 0-09 by mouth ity of tablet 11:52: every [place] [address] evening. Medical With Branch dinner linagliptin 2020-09 [...] by mouth ity of tablet 11:52: daily. Medical Branch levocetiriz 2020-09 Yes 5mg Take 5 mg U nivers ine 5 mg 0-09 by mouth ity of tablet 11:52: daily. [place] [facility] rosuvastati 2020-09 Yes 40mg Take 40 mg Univers n 40 mg 0-09 by mouth ity of tablet 11:52: every [place] 04 evening. Medical With Branch dinner linagliptin [...] 2 ity of tablet 09:27: 00:00 (two) [place] 02 :00 times Medical daily. Branch hydrALAZINE 2020-09- No 50mg Take 50 mg Univers 50 mg 0-09 10-09 by mouth 3 ity of tablet 09:27: 00:00 (three) [place] 02 :00 times Medical daily. Branch furosemide 2020-09- No 20mg Take 20 mg Univers 20 mg 0-09 10-09 by mouth ity of tablet 09:27: 00:00 every [place] 02 :00 morning Medical and Branch evening. 0800 am and 1400 febuxostat 2020-09 Yes [id number] 40mg Take 1 U nivers 40 mg 0-09 tablet by ity of tablet 00:00: mouth [place] 00 daily. Medical Branch febuxostat 2020-09 Yes [id number] 40mg Take 1 U nivers 40 mg 0-09 tablet by ity of tablet 00:00: mouth [place] 00 daily. Medical Branch NaCl 0.9% 2020-09 Yes [id number] IV Unive rs (NS) IV 0-08 Infusion, ity of infusion 19:15: at 100 [place] 00 mL/hr, Medical CONTINUOUS Branch , Starting on Wed06/20/21 at 1415, Until Discontinu ed, STAT amLODIPine 2020-09 Yes [id number] 5mg 5 mg, Un chani (NORVASC) 0-08 [...] Discontinu ed, Routine NaCl 0.9% 2020-09- No [id number] IV Univ ers (NS) IV 0-08 10-08 Infusion, ity of infusion 13:30: 19:02 at 75 [place] 00 :45 mL/hr, Medical CONTINUOUS Branch , Starting on Wed06/20/21 at 0830, Until Wed06/20/21 at 1402, STAT heparin 2020-09 Yes 5000U 5,000 Univers (porcine) 0-08 Units, ity of injection 11:00: [place] 5,000 Units 00 us, Q8H, [facility] First dose Branch on Wed06/20/21 at 0600, Until Discontinu ed, Routine rosuvastati 2020-09 Yes [id number] 40mg 40 mg, Univers n (CRESTOR) 0-08 Oral, QHS, it y of tablet 40 02:00: First dose [place] mg 00 on [facility] 06/19/21 at Branch 2100, Until Discontinu ed, Routine ferrous 2020-09 Yes [id number] 325mg 325 mg, Un chani sulfate 0-08 Oral, BID, ity of tablet 325 01:00: First dose [place] mg 00 on [facility] 06/19/21 at Branch 2000, Until Discontinu ed, Routine hydrALAZINE 2020-09- No [id number] 50mg 50 mg, Univers (APRESOLINE 0-08 10-08 Oral, BID, i ty of ) tablet 50 01:00: 02:31 1 dose, [place] mg 00 :00 First dose Medical (after Branch last modificati on) on [place] 06/19/21 at 2000, Routine NaCl 0.9% 2020-09- No [id number] IV Univ ers (NS) IV 0-07 10-08 [...] Medical Infusion, Branch CONTINUOUS , Starting on Wed06/19/21 at 1230, Until [place] 06/19/21 at 1741, Routine Sliding 2020-09 Yes Subcutaneo Univ ers Scale 0-07 us, TID ity of Insulin - 17:00: MEALS+HS, Na[place] as Lispro 00 First dose Medical (HumaLOG) + on [facility] Branch Fsbg 06/19/21 at Testing 1200, Until Discontinu ed, Routine glucagon 2020-09 Yes 1mg 1 mg, Univers (GLUCAGEN 0-07 Intramuscu ity of DIAGNOSTIC 15:05: lar, PRN, [place] KIT) 01 Starting Medical injection 1 on [facility] Branch mg 06/19/21 at 1005, Until Discontinu ed, LOBO, Blood Glucose < or = 70 mg/dL and patient is unable to swallow or has mental changes. dextrose 50 2020-09 Yes 25mL 25 mL, Univ ers % in water 0-07 Slow IV ity of (D50W) 15:05: Push, PRN, [place] injection 01 Starting Medica l 25 mL on [facility] Branch 06/19/21 at 1005, Until Discontinu ed, LOBO, Blood Glucose < or = 70 mg/dL and patient is unable to swallow or has mental status changes. cholecalcif 2020-09 Yes [id number] 2000U 2,000 Univers [place]an[place] 0-07 Units, ity of (vitamin 14:45: Oral, [place] D3) tablet 00 DAILY, Medical 2,000 Units First dose Br anch on [place] 06/19/21 at 0945, Until Discontinu ed, Routine acetaminoph 2020-09 Yes 650mg 650 mg, Un chani en 0-07 Oral, ity of (TYLENOL) 14:18: Q6HPRN, [place] tablet 650 47 Starting Medic al mg on [place] Branch 06/19/21 at 0918, Until Discontinu ed, Routine, Pain (scale 1-3) glimepiride 2020-09 No 4mg Take 4 mg Univers 4 mg tablet 06-19 by mouth ity of 12:08: 00:00 daily with [place] 53 :00 breakfast. Medical Branch bisoproloL- 2020-09 No 1{tbl} Take 1 U nivers hydrochloro 06-19 tablet by it y of thiazide 12:08: 00:00 mouth 2 [place] 10-6.25 mg 53 :00 (two) Medical per tablet times Branch daily. Immunizations Ordered Filled Immunization Date Status Comments [facility] e Immunization Name Name Pneumococcal 2021-06-21 Completed [place] o f Polysaccharide, 00:00:00 [place] Med ical PPSV23 (PNEUMOVAX) Branch Pneumococcal 2021-06-21 Completed [place] o f Polysaccharide, 00:00:00 [place] Med ical PPSV23 (PNEUMOVAX) Branch Influenza Virus 2020-07-14 Completed Universit y of Vaccine Quad IM 00:00:00 [place] Med ical Multi-dose 6+ MO Branch Influenza Virus 2020-07-14 Completed Universit y of Vaccine Quad IM 00:00:00 [place] Med ical Multi-dose 6+ MO Branch Vital Signs Vital Name Observation Time Observation Value Comments Source HEIGHT 2021-08-14 00:15:00 172.7 cm WEIGHT 2021-08-14 00:15:00 79.379 kg HEIGHT 2021-08-13 23:00:00 172.7 cm WEIGHT 2021-08-13 23:00:00 79.379 kg HEIGHT 2021-08-14 00:15:00 172.7 cm WEIGHT 2021-08-14 00:15:00 79.379 kg HEIGHT 2021-08-13 23:00:00 172.7 cm WEIGHT 2021-08-13 23:00:00 79.379 kg Heart rate 2021-06-21 14:00:00 88 /min [facility] Respiratory rate 2021-06-21 14:00:00 13 /min [facility] Oxygen saturation in 2021-06-21 14:00:00 98 /min [facility] Arterial blood by [facility] Pulse oximetry [place] Systolic blood 2021-06-21 13:02:00 151 mm[Hg] Univer sity of [facility] Diastolic blood 2021-06-21 13:02:00 75 mm[Hg] [facility] temperature 2021-06-21 13:02:00 36.22 Yadira [facility] Body weight 2021-06-20 09:51:00 82.464 kg [facility] BMI 2021-06-20 09:51:00 27.64 kg/m2 [facility] Body height 2021-06-19 20:00:00 172.7 cm [facility] Procedures Procedure Date / Time Performing Clinician Source Performed POCT GLUCOSE (AUTOMATED) 2021-06-21 13:21:00 Jose Hughes [facility] MAGNESIUM 2021-06-21 10:35[facility] 2021-06-21 10:35[facility] 2021-06-21 10:35:00 [facility] ELECTROLYTES PANEL 2021-06-21 10:35:00 [facility] ([id number]NA, K, CL, CO2) [facility] POTASSIUM, URINE RANDOM 2021-06-21 10:35:[facility]INE [facility]ANDOM 2021-06-21 [facility] 2021-06-21 01:20:00 [facility] ([id number])(NA, K, CL, CO2) [facility] POCT GLUCOSE (AUTOMATED) 2021-06-21 01:14:00 Jose Hughes Uni [facility] POCT GLUCOSE (AUTOMATED) 2021-06-20 22:05:00 Jose Hughes [facility] ELECTROLYTES PANEL 2021-06-20 17:24[facility] ([id number]NA, K, CL, CO2) [place] OSMOLALITY URINE 2021-06-20 10:13:00 Delvis, [facility] POTASSIUM, URINE RANDOM 2021-06-20 10:13:00 Delvis, [facility] SODIUM, URINE RANDOM 2021-06-20 10:13:00 Delvis, [facility] MAGNESIUM 2021-06-20 10:12:00 Delvis, [facility] VITAMIN B12, LEVEL 2021-06-20 10:12:00 Saul Jose [facility] FOLATE 2021-06-20 10:12:00 Saul [facility] RENAL PANEL 2021-06-20 10:12:00 Delvis, [facility] VITAMIN D, 25-OH 2021-06-20 10:12:00 Saul [facility] ELECTROLYTES PANEL 2021-06-20 03:25:00 [facility] ([id number])(NA, K, CL, CO2) [facility] POCT GLUCOSE (AUTOMATED) 2021-06-20 02:30:00 Jose Hughes [facility] POCT GLUCOSE (AUTOMATED) 2021-06-20 01:12:00 Jose Hughes [facility] POCT GLUCOSE (AUTOMATED) 2021-06-19 22:34:00 Jose Hughes [facility] ELECTROLYTES PANEL 2021-06-19 21:21:00 [facility] ([id number])(NA, K, CL, CO2) [facility] POCT GLUCOSE (AUTOMATED) 2021-06-19 16:58:00 Jose Hughes [facility] POCT GLUCOSE (AUTOMATED) 2021-06-19 14:31:00 Jose Hughes [facility] PHOSPHORUS 2021-06-19 14:17:00 Delvis, [facility] CREATINE KINASE 2021-06-19 14:17:00 Jose Hughes [facility] URIC ACID 2021-06-19 14:17:00 Delvis, [facility] MAGNESIUM 2021-06-19 14:17:00 Delvis, [facility] FERRITIN SERUM 2021-06-19 14:17:00 Saul [facility] OSMOLALITY, SERUM OR 2021-06-19 14:17:00 Delvis, [facility] PLASMA [facility] OSMOLALITY URINE 2021-06-19 14:17:00 Delvis, [facility] TROPONIN I 2021-06-19 14:17:00 Delvis [facility] THYROID STIMULATING 2021-06-19 14:17:00 Jose Hughes [facility] HORMONE [facility] COMP. METABOLIC PANEL 2021-06-19 14:17:[address] [facility] ([id number]) [facility] IRON PANEL 2021-06-19 14:17:00 Jose Hughes [facility] DIFF CONSULT 2021-06-19 14:17:00 Saul [facility] INTERPRETATION [facility] CBC WITH DIFF 2021-06-19 14:17:00 Delvis [facility] GLYCOSYLATED HEMOGLOBIN 2021-06-19 14:17:00 Jose Hughes [facility] (A1C) [facility] URINALYSIS MICROSCOPIC 2021-06-19 14:17:00 Delvis [facility] RETICULOCYTES AUTOMATED 2021-06-19 14:17:00 Jose Hughes [facility] N-TERMINAL PRO-BNP 2021-06-19 14:17:00 Delvis [facility] POTASSIUM, URINE RANDOM 2021-06-19 14:17:00 Delvis, [facility] SODIUM, URINE RANDOM 2021-06-19 14:17:00 Michelle Edmondson [facility] [place] PROTEIN CREAT RATIO URINE 2021-06-19 14:17:00 [facility] Medical Branch COVID-19 (ID NOW RAPID 2021-06-19 14:17:00 Michelle Edmondson [facility] TESTING) Medical Branch LAB ONLY COVID 2021-06-19 14:17:00 Michelle Edmondson [place] INTERPRETATION [facility] PATIENT FINANCIAL 2021-06-19 13:01:56 Doctor Unassigned, Un [facility] POLICY [place] [facility] NO SHOW OR MISSED 2021-06-19 13:01:37 Doctor Unassigned, [facility] APPOINTMENT POLICY [place] [facility] h ACKNOWLEDGEMENT NOTICE OF PRIVACY 2021-06-19 13:01:16 Doctor Unassigned, [facility] PRACTICES [place] [facility] CONSENT/REFUSAL FOR 2021-06-19 13:01:02 Doctor Unassfawn, [facility] DIAGNOSIS AND TREATMENT [place] [facility] ASSIGNMENT OF BENEFITS 2021-06-19 13:00:44 Doctor Unassigned, [facility] [place] [facility] Encounters Start End Encounter Admission Attending Care Care Encounter Source Date/Time Date/Time Type Type Clinicians Facility Department ID 2021-09-23 Inpatient MASSIEL Barakat OUTD [id number] [facility] 09:30:00 Harpal [id number] [facility] 2021-07-15 [id number] Univers 04:45:31 JOSE [facility] 2021-09-24 2021-09-24 Outpatient OSMANY BarakatAXEL OUTD [id number] [facility] 05:04:00 05:04:00 Harpal [id number] [facility] 2021-09-24 2021-09-24 Outpatient OSMANY BarakatAXEL CERONCL [id number] [facility] 05:04:00 05:04:00 Harpal 51 [facility] 2021-08-13 2021-08-15 Outpatient ER NATACHA BURGESS Cardiology [id number] ANUPH 22:46:00 14:50:00 MAHBOOB 2021-08-13 2021-08-13 [id number] [facility] 00:00:00 23:59:00 Yumi Medicin e 2021-07-08 2021-07-08 Outpatient [facility] [id number] [place] 00:00:00 00:00:[address] 2021-06-23 2021-06-23 Transition Siva Cantu [id number] [facility] 00:00:00 00:00:00 of Care Pablo Juan Davis [id number] ity of [id number] [id number] [facility] 403 Branch 2021-06-19 2021-06-21 [facility] [id number] [facility] 08:50:00 11:15:00 Encounter Jose Riceton [id number] ity [id number] [id number] [facility] 080 Branch 2021-06-13 2021-06-13 Outpatient NAUTIYAL, [facility] [id number] [place] 00:00:00 00:00:00 NIKOSTAN 814 Method i 2021-05-16 2021-05-16 Outpatient NAUTIYAL, [facility] [id number] [place] 00:00:00 00:00:00 NIKOSTAN 336 Method i 2021-04-18 2021-04-18 Outpatient NAUTIYAL, [facility] [id number] [place] 00:00:00 00:00:00 NIKOSTAN [address] 2021-03-21 2021-03-21 Outpatient NAUTIYAL, [facility] [id number] [place] 00:00:00 00:00:00 NIKOSTAN 979 Method i 2021-02-21 2021-02-21 Outpatient NAUTIYAL, [facility] [id number] [place] 00:00:00 00:00:00 NIKOSTAN 833 Method i 2021-01-17 2021-01-17 Outpatient NAUTIYAL, [facility] [id number] [place] 00:00:00 00:00:00 KIRTAN [address] 2020-12-20 2020-12-20 Outpatient NAUTIYAL, [facility] [id number] [place] 00:00:00 00:00:00 KIRTAN [address] 2020-12-12 2020-12-12 Outpatient ROBBEN, [facility] [id number] [place] 00:00:00 00:00:00 ED [address] 2020-11-21 2020-11-21 Outpatient [facility] [id number] [place] 00:00:00 00:00:[address] 2020-11-15 2020-11-15 Outpatient NAUTIYAL, [facility] [id number] [place] 00:00:00 00:00:00 KIRTAN [address] 2020-10-11 2020-10-11 Outpatient NAUTIYAL, [facility] [id number] [place] 00:00:00 00:00:00 KIRTAN [address] 2020-09-12 2020-09-12 Outpatient NAUTIYAL, [facility] [id number] [place] 00:00:00 00:00:00 KIRTAN [address] 2020-08-16 2020-08-16 Outpatient NAUTIYAL, [facility] [id number] [place] 00:00:00 00:00:00 KIRTAN [address] 2020-08-06 2020-08-06 Outpatient NAUTIYAL, [facility] [id number] [place] 00:00:00 00:00:00 KIRTAN [address] 2020-07-19 2020-07-19 Outpatient NAUTIYAL, [facility] [id number] [place] 00:00:00 00:00:00 KIRTAN [address] 2020-06-21 2020-06-21 Outpatient NAUTIYAL, [facility] [id number] [place] 00:00:00 00:00:00 KIRTAN [address] 2020-05-24 2020-05-24 Outpatient NAUTIYAL, [facility] [id number] [place] 00:00:00 00:00:00 KIRTAN [address] 2020-04-26 2020-04-26 Outpatient NAUTIYAL, [facility] [id number] [place] 00:00:00 00:00:00 KIRTAN [address] 2020-03-22 2020-03-22 Outpatient NAMITRA, [facility] [id number] [place] 00:00:00 00:00:00 KIRTAN [address] 2020-02-23 2020-02-23 Outpatient NAMITRA, [facility] [id number] [place] 00:00:00 00:00:00 KIRTAN [address] 2020-02-02 2020-02-02 Outpatient NARAFIQIRICARDO, [facility] [id number] [place] 00:00:00 00:00:00 KIRTAN 991 Method i 2020-01-26 2020-01-26 Outpatient NARAFIQIRICARDO, [facility] [id number] [place] 00:00:00 00:00:00 KIRTAN [address] 2019-12-29 2019-12-29 Outpatient MIRA, [facility] [id number] [place] 00:00:00 00:00:00 KIRTAN 175 Method i 2019-11-24 2019-11-24 Outpatient NAMITRA, [facility] [id number] [place] 00:00:00 00:00:00 KIRTAN [address] Results Test Description Test Time Test Comments Results Result Comments Source GLUCOSE BEDSIDE 2021-09-24 14:48:00 Test Item Value Reference Range Interpretation Comme nts GLUCOSE BEDSIDE (test code = 143 MG/DL 70-110 H Performed by certified national van owner operator at [facility]) [facility] [id number] 14:20:00 Test Item Value Reference Range Interpretation Comments ACT-ISTAT (test code 249 SEC 74-137 H Perform ed by certified = ACTI) national van owner operator at [facility] [id number] 14:20:00 Test Item Value Reference Range Interpretation Comments ACT-ISTAT (test code 243 SEC 74-137 H Perform ed by certified = ACTI) national van owner operator at [facility] PROTHROMBIN [id number] 10:49:00 Test Item Value Reference Range Interpretation Comments PROTHROMBIN TIME 12.2 SECONDS 9.3-12.9 N PATIENT (test code = PTP) INTERNATIONAL NORMAL 1.1 0.8-1.2 N TARGET RATIO (test code = INR BY IN DICATION INR) Indication INR1. Prophyl axis of venous thrombos is 2.0 - 3. 0 (orthopedic vanessa shabnam), Prophylaxis of venous thrombos is (other than hig h-risk surgery), Verito tment of Deep Vein Thrombosis/Pulm onary Embolism, Preve ntion of systemic emb olism - Tissue heart va lves, Acute Myocardia l Infarction (to prevent systemic embo lism), Valvular heart disease, Atri al Fibrillation, Bileaflet mecha nical valve in aortic position.2. Mec hanical prosthetic valv es (high risk), 2.5 - 3.5 Presence of Lupus Anticoagu lant or Antiphospholi pid Antibodies, Pre vention of systemic e mbolism - Acute Myocard ial Infarction (t o prevent recurre nt infarct). BASIC METABOLIC [id number] 10:46:00 Test Item Value Reference Range Interpretation Comments SODIUM (test code = NA) 138 mEq/L 134-147 N POTASSIUM (test code = 4.3 mEq/L 3.4-5.0 N K) CHLORIDE (test code = 110 mEq/L 100-108 H CL) CARBON DIOXIDE (test 22 mEq/l 21-33 N code = CO2) ANION GAP (test code = 10 0-20 N GAP) GLUCOSE (test code = 188 mg/dL 70-110 H GLU) BLOOD UREA NITROGEN 40 mg/dL 7-18 H (test code = BUN) GLOMERULAR FILTRATION 44.3 80-90 L Units of measure = RATE (test code = GFR) ml/mi n/1.73 m2 CREATININE (test code = 1.6 mg/dL 0.6-1.3 H CREAT) CALCIUM (test code = 9.2 mg/dL 8.0-10.5 N CA) CBC W/AUTO [id number] 10:39:00 Test Item Value Reference Range Interpretation Comments WHITE BLOOD CELL (test code = 4.0 x10 3/uL 4.5-11.0 L WBC) RED BLOOD CELL (test code = 2.74 x10 6/uL 4.00-5.60 L RBC) HEMOGLOBIN (test code = HGB) 8.6 g/dL 12.5-16.9 L HEMATOCRIT (test code = HCT) 25.1 % 37.5-50.7 L MEAN CELL VOLUME (test code = 91.6 fL 81.0-99.0 N MCV) MEAN CELL HGB (test code = MCH) 31.4 pg 27.0-33.0 N MEAN CELL HGB CONCETRATION 34.3 g/dL 33.0-37.0 N (test code = MCHC) RED CELL DISTRIBUTION WIDTH CV 14.0 % 11.5-14.5 N (test code = RDW) PLATELET COUNT (test code = 224 x10 3/uL 150-400 N PLT) NEUTROPHIL % (test code = NT%) 63.7 % 56.0-77.0 N LYMPHOCYTE % (test code = LY%) 18.9 % 14.0-32.0 N NEUTROPHIL # (test code = NT#) 2.56 x10 3/uL 2.0-7.6 N LYMPHOCYTE # (test code = LY#) 0.76 x10 3/uL 1.0-3.8 L MANUAL DIFF REQUIRED (test code NO = MDIFF) RED CELL DISTRIBUTION WIDTH SD 46.8 fL 37.0-54.0 N (test code = RDW-SD) MEAN PLATELET VOLUME (test code 9.7 fL 7.0-9.0 H = MPV) IMMATURE GRANULOCYTE % (test 0.5 % 0.0-2.0 N code = IG%) MONOCYTE % (test code = MO%) 10.7 % 4.8-9.0 H EOSINOPHIL % (test code = EO%) 4.7 % 0.3-3.7 H BASOPHIL % (test code = BA%) 1.5 % 0.0-2.0 N NUCLEATED RBC % (test code = 0.0 % 0-0 N NRBC%) IMMATURE GRANULOCYTE # (test 0.02 x10 3/uL 0.00-0.03 N code = IG#) MONOCYTE # (test code = MO#) 0.43 x10 3/uL 0.1-0.8 N EOSINOPHIL # (test code = EO#) 0.19 x10 3/uL 0.0-0.2 N BASOPHIL # (test code = BA#) 0.06 x10 3/uL 0.0-0.2 N NUCLEATED RBC # (test code = 0.00 x10 3/uL 0.0-0.1 N NRBC#) - XR CHEST 2 [id number] 00:00:00 [facility] : 1960 Sex: M FAX: Mike Mak MD [phone] [place]: St: PRE FAX: Harpal Marr MD [phone] Name: JULIO MARIE [facility] [place] : 1960 Age/S: 61/M [address] [place] [address] Unit #: [id number] Loc: [place] [address] Phys: Harpal Jimenez MD Acct: [id number] Dis Date: Status: PRE [facility] [place]ONE #: [phone] Exam Date: 09/23/2021 1115 FAX #: [phone] Reason: PREOP EXAMS: CPT CODE: [id number] XR CHEST 2 V 05619 PROCEDURE INFORMATION: Exam: XR Chest Exam date and time: 09/23/2021 10:43 AM Age: 61 years old Clinical indication: Screening exam; Pre- operative exam; Other: Preop TECHNIQUE: Imaging protocol: XR of the chest. Views: 2 views. PA and Lateral COMPARISON: No relevant prior studies available. FINDINGS: Lungs: No consolidatio n. Pleural spaces: No pleural effusion. Heart/Mediastinum: The heart and vascular markings are within limits of normal. Bones/joints: No gross acute findings. IMPRESSION: No acute cardiopulmonary findings at 1210 Reported and signed by: Nia Berrios D.O. CC: Mike Vásquez MD; Harpal Lewis Technologist: RT Afshin(Tanja) Trnscrd Date/Time/By: 09/23/2021 (1210) : By: [email or web address] Orig Print D/T: S: 09/23/2021 (1210) PAGE 1 Signed ReportPOCT-GLUCOSE [id number] 11:33:36 Test Item Value Reference Range Interpretation Comments POC-GLUCOSE METER 132 mg/dL 70-110 H : TESTED A T [facility] 6720 (BEAKER) (test code = [facility], 1538) 30915: Supervisor Sawmill/Techni doyle ID = [id number] for Anne Huitron POCT-GLUCOSE [id number] 06:03:47 Test Item Value Reference Range Interpretation Comments POC-GLUCOSE METER 121 mg/dL 70-110 H : TESTED A T [facility] 6720 (BEAKER) (test code = [facility], 1538) 06159: Supervisor Sawmill/Techni doyle ID = [id number] for PEDRO SCHWAB BASIC METABOLIC [id number] 06:01:00 Test Item Value Reference Range Interpretation [...] 697) EGFR (BEAKER) (test 40 mL/min/1.73 ESTIMA FRANKLIN GFR IS code = 1092) sq m NOT ACCURATE CREATININE CLEARANCE IN PREDICTING GLOMERULAR FILTRATION RATE . ESTIMATED GFR I S NOT APPLICABLE FOR DIALYSIS PATIEN TS. Supervisor Sawmill ID - JEAN CARLOS GPOCT-GLUCOSE [id number] 21:05:06 Test Item Value Reference Range Interpretation Comments POC-GLUCOSE METER 115 mg/dL 70-110 H : TESTED A T [facility] 6720 (RealtimeBoard) (test code = [facility], 1538) 48180: Supervisor Sawmill/Techni doyle ID = [id number] for UG PEDRO DURAN POCT-GLUCOSE [id number] 19:02:49 Test Item Value Reference Range Interpretation Comments POC-GLUCOSE METER 144 mg/dL 70-110 H : TESTED A T [facility] 6720 (NanoogoAKER) (test code = [facility], 1538) 45687: Supervisor Sawmill/Techni doyle ID = [id number] for Belen Miner POCT-GLUCOSE [id number] 16:51:49 Test Item Value Reference Range Interpretation Comments POC-GLUCOSE METER 185 mg/dL 70-110 H : TESTED A T [facility] 6720 (BEAKER) (test code = [facility], 1538) 03803: Supervisor Sawmill/Techni doyle ID = [id number] for Re Adriana jefferson [facility], MULTI, PHARM, [id number] 15:15:00Unlisted Reason for Exam - Click Yes and Enter Reason Below->No [facility] 1960 Sex: MFINAL REPORT PROCEDURE: MYOCARDIAL PERFUSION SPECT IMAGING (Rest/Stress)CPT CODE: 18920 INDICATION: CAD risk, intermediate risk, Chest pain [...] is no prior study for comparison. Signed: Wilder Mejia MDReport Verified Date/Time: 08/14/2021 15:15:39 Reading Location: [address] Reading Room HEMOGLOBIN [id number] 10:49:00 Test Item Value Reference Range Interpretation Comments HEMOGLOBIN A1C (LIVE) (test code = 5.5 % 4.3-6.1 368) POCT-GLUCOSE [id number] 09:34:32 Test Item Value Reference Range Interpretation Comments POC-GLUCOSE METER 145 mg/dL 70-110 H : TESTED A T [facility] 6720 (LIVE) (test code = [facility] [place], 0216) 34476: Supervisor Sawmill/Techni doyle ID = [id number] for ROSSI FISCHER HIGH SENSITIVITY TROPONIN [id number] 05:11:36 Test Item Value Reference Range Interpretation Comments HIGH SENSITIVITY 26 pg/ml See_Comment [Automated message] TROPONIN I (test code = The system which 4318581) generated this result transmitted ref erence range: <=35. Th e reference range was not used to int erpret this result as normal/abnormal . Supervisor Sawmill ID - GISELL [facility] [employer] OTHER RANKS STAT High Sensitivity Troponin-I results should be used in conjunction with other diagnostic information such as ECG, clinical observations and information, and patient symptoms to aid in the diagnosis of MS.LIPID [id number] 05:07:50 Test Item Value Reference Range Interpretation [...] Borderline 130-159 High 160-189 Very High >=190 Supervisor Sawmill ID - GISELL MBASIC METABOLIC [id number] 05:07:49 Test Item Value Reference Range Interpretation [...] 697) EGFR (BEAKER) (test 39 mL/min/1.73 ESTIMA FRANKLIN GFR IS code = 1092) sq m NOT ACCURATE CREATININE CLEARANCE IN PREDICTING GLOMERULAR FILTRATION RATE . ESTIMATED GFR I S NOT APPLICABLE FOR DIALYSIS PATIEN TS. Supervisor Sawmill ID - GISELL [id number] 05:07:49 Test Item Value Reference Range Interpretation Comments MAGNESIUM (BEAKER) (test code = 2.2 mg/dL 1.6-2.6 627) Supervisor Sawmill ID - GISELL MCBC W/PLT COUNT & AUTO [id number] 04:44:58 Test Item Value Reference Range Interpretation [...] PERCENT (BEAKER) (test code = 2801) PROTHROMBIN TIME/[id number] 00:46:16 Test Item Value Reference Range Interpretation Comments PROTIME (BEAKER) 14.4 seconds 11.9-14.2 H (test code = 759) INR (BEAKER) (test 1.14 See_Comment [Automat ed message] code = 370) The system [employer] generated this result transmitted ref erence range: <=5.90. The reference range was not used to int erpret this result as normal/abnormal . RECOMMENDED COUMADIN/WARFARIN INR THERAPY RANGESSTANDARD DOSE: 2.0 - 3.0 Includes: PROPHYLAXIS forvenous thrombosis, systemic embolization; TREATMENT for venous thrombosis and/or pulmonary embolus.HIGH RISK: Target INR is 2.5-3.5 for patients with mechanical heart valves.SARS-COV2/RT-PCR ([facility]) 2021-08-14 00:26:40 Test Item Value Reference Range Interpretation Comments SARS-COV2/RT-PCR Negative Negative The SARS-Co V-2 target (test code = nucleic acids a re not 1306207) detected in thi s specimen. Negative result [...] rapid, real-bibi e RT-PCR test intended for e qualitative detection of nu cleic acid [...] revoked sooner. Fact Sheet for Healthcare Providers: https://www.[employer]/Documents/Xpert%20Xpress%20SARS%20CoV-2/Fact%20Sheets/3023802%20SARS-COV -2%20HEALTHCARE%20PROVIDERS%20FACT%20SHEET.pdf Fact Sheet for Healthcare Patients: https://www.[employer]/Documents/Xpert %20Xpress%20SARS%20CoV-2/Fact%20Sheets/302-3801%23TGLG-FYQ-1%20PATIENT%20FACT%20 SHEET.pdfRAD, CHEST, 1 VIEW, NON [id number] 00:12:00Reason for exam:- >CPShould this be performed at the bedside?->Yes [facility] 1960 Sex: MFINAL [...] pleural effusion or acute bony abnormality. Signed: Ravinder Patiño MDReportVerified Date/Time: 08/14/2021 00:12:28 HIGH SENSITIVITY TROPONIN [id number] 23:42:44 Test Item Value Reference Range Interpretation Comments HIGH SENSITIVITY 38 pg/ml See_Comment H [Automated message] TROPONIN I (test code = The system which 2195455) generated this result transmitted ref erence range: <=35. Th e reference range was not used to int erpret this result as normal/abnormal . Supervisor Sawmill ID - BSThe [employer] OTHER RANKS STAT High Sensitivity Troponin-I results should be used in conjunctionwith other diagnostic information such as ECG, clinical observations and information, and patient symptoms to aid in the diagnosis of MS.PT/[id number] 23:37:54 Test Item Value Reference Range Interpretation Comments PROTIME (BEAKER) (test 14.6 seconds 11.9-14.2 H code = 759) INR (BEAKER) (test 1.16 See_Comment [Automat ed code = 370) message] The system which generated this result transmit franklin reference range : <=5.90. The reference range was not used to interpret this result as normal/abnormal . PARTIAL THROMBOPLASTIN 170.4 seconds 22.5-36.0 HH TIME (BEAKER) (test code = 760) RECOMMENDED COUMADIN/WARFARIN INR THERAPY RANGESSTANDARD DOSE: 2.0 - 3.0 Includes: PROPHYLAXIS forvenous thrombosis, systemic embolization; TREATMENT for venous thrombosis and/or pulmonary embolus.HIGH RISK: Target INR is 2.5-3.5 for patients with mechanical heart valves.COMPREHENSIVE METABOLIC [id number] 23:36:03 Test Item Value Reference Range Interpretation [...] 347) EGFR (BEAKER) (test 35 mL/min/1.73 ESTIMA FRANKLIN GFR IS code = 1092) sq m NOT ACCURATE CREATININE CLEARANCE IN PREDICTING GLOMERULAR FILTRATION RATE . ESTIMATED GFR I S NOT APPLICABLE FOR DIALYSIS PATIEN TS. Supervisor Sawmill ID - BSCBC W/PLT COUNT & AUTO [id number] 23:13:22 Test Item Value Reference Range Interpretation [...] Interpretation Comments POCT GLU (test code = 9968088801) 99 mg/dL 70-110 Lab Interpretation (test code = Normal 21445-5) [facility] Test Item Value Reference Range Interpretation Comments MAGNESIUM (test code = 8216762559) 2.3 mg/dL 1.7-2.4 Lab Interpretation (test code = Normal 89648-8) [facility] [id number] 12:40:15 Test Item Value Reference Range Interpretation Comments ALBUMIN (test code = 3.6 g/dL 3.5-5.0 0313470996) CALCIUM (test code = 8.9 mg/dL 8.6-10.6 8886321325) CO2 TOTAL (test code = 23 mmol/L 23-31 5510803957) CREATININE (test code = 1.36 mg/dL 0.60-1.25 H 2948477910) GLUCOSE (test code = 87 mg/dL 70-110 2278788323) K (test code = 4.2 mmol/L 3.5-5.0 1625245397) NA (test code = 135 mmol/L 135-145 7820572616) BUN (test code = 34 mg/dL 7-23 H 2605260126) PHOSPHORUS (test code = 3.9 mg/dL 2.5-5.0 4655555781) eGFR (test code = mL/min/1.73m2 4539375204) ALYSIA (test code = ALYSIA) Association of [...] tests). Lab Interpretation Abnormal (test code = 72100-0) [facility] (02595)(NA, K, CL, CO2) 2021-06-21 12:39:35 Test Item Value Reference Range Interpretation Comments NA (test code = 9178796422) 135 mmol/L 135-145 K (test code = 0337086106) 4.2 mmol/L 3.5-5.0 CL (test code = 8661509024) 107 mmol/L 98-108 CO2 TOTAL (test code = 5311686821) 23 mmol/L 23-31 AGAP (test code = 2464101602) 2-16 Lab Interpretation (test code = Normal 88230-3) [facility] PAN[facility] (83702)(NA, K, CL, CO2) 2021-06-21 02:05:41 Test Item Value Reference Range Interpretation Comments NA (test code = 2891036351) 130 mmol/L 135-145 L K (test code = 7863845683) 4.2 mmol/L 3.5-5.0 CL (test code = 7178092534) 99 mmol/L 98-108 CO2 TOTAL (test code = 8484615383) 23 mmol/L 23-31 AGAP (test code = 5613430379) 2-16 Lab Interpretation (test code = Abnormal 19204-0) [facility] (AUTOMATED)2021-06-21 01:32:17 Test Item Value Reference Range Interpretation Comments POCT GLU (test code = 5905357850) 163 mg/dL 70-110 H Lab Interpretation (test code = Abnormal 69523-0) [facility] (AUTOMATED)2021-06-21 01:32:11 Test Item Value Reference Range Interpretation Comments POCT GLU (test code = 4046291952) 111 mg/dL 70-110 H Lab Interpretation (test code = Abnormal 63778-8) [facility] HospitalDIFF CONSULT [id number] 19:50:07 ABSOLUTE LYMPHOPENIA. NORMOCYTIC NORMOCHROMIC ANEMIA. PLATELETS ARE UNREMARKABLE.[facility] HospitalVITAMIN B12, [id number] 19:49:05 Test Item Value Reference Range Interpretation Comments VIT B12 (test code = 687 pg/mL 240-930 1746221198) ALYSIA (test code = ALYSIA) Biotin has been reported to cause a positive bias, interpret results relative to patient's use of biotin. Lab Interpretation (test Normal code = 62466-2) [facility] HospitalVIT[facility]IN D, [id number] 19:16:59 Test Item Value Reference Range Interpretation Comments VIT D 25OH (test code = 17 ng/mL 25-80 L 45378-0) ALYSIA (test code = ALYSIA) Deficiency: <20 ng/mLInsufficiency: 20-24 ng/mLOptimal: 25-80 ng/mL Lab Interpretation (test Abnormal code = 13090-0) [facility] HospitalELECTROLYTES PANEL (60212)(NA, K, CL, CO2) 2021-06-20 18:30:32 Test Item Value Reference Range Interpretation Comments NA (test code = 5741633900) 127 mmol/L 135-145 L K (test code = 4548870978) 4.4 mmol/L 3.5-5.0 CL (test code = 3878599893) 97 mmol/L 98-108 L CO2 TOTAL (test code = 3617365606) 20 mmol/L 23-31 L AGAP (test code = 9080634867) 2-16 Lab Interpretation (test code = Abnormal 14694-4) [facility] (AUTOMATED)2021-06-20 18:02:33 Test Item Value Reference Range Interpretation Comments POCT GLU (test code = 4866077518) 118 mg/dL 70-110 H Lab Interpretation (test code = Abnormal 58408-2) [facility] acute hospital GLUCOSE (AUTOMATED)2021-06-20 18:02:33 Test Item Value Reference Range Interpretation Comments POCT GLU (test code = 2042273569) 181 mg/dL 70-110 H Lab Interpretation (test code = Abnormal 85763-8) [facility] HospitalFOLATE2021-10-08 16:36:31 Test Item Value Reference Range Interpretation Comments FOLATE SER (test code = >20.0 3.0-20.0 H Biot in has been 7822527079) reported to cau se a positive bias, interpret resul ts relative to patient's use o f biotin. Lab Interpretation (test Abnormal code = 06292-7) [facility] BranchRENAL [id number] 12:37:06 Test Item Value Reference Range Interpretation Comments ALBUMIN (test code = 3.8 g/dL 3.5-5.0 0657166719) CALCIUM (test code = 8.7 mg/dL 8.6-10.6 7104945989) CO2 TOTAL (test code = 20 mmol/L 23-31 L 5112669298) CREATININE (test code = 1.64 mg/dL 0.60-1.25 H 0725025660) GLUCOSE (test code = 82 mg/dL 70-110 8060281007) K (test code = 4.1 mmol/L 3.5-5.0 9506709487) NA (test code = 126 mmol/L 135-145 L 2756308641) BUN (test code = 43 mg/dL 7-23 H 3976116339) PHOSPHORUS (test code = 4.2 mg/dL 2.5-5.0 8564032572) eGFR (test code = mL/min/1.73m2 7554445470) ALYSIA (test code = ALYSIA) Association of [...] tests). Lab Interpretation Abnormal (test code = 46982-7) [facility] HospitalMAGNESIUM2021-10-08 12:37:06 Test Item Value Reference Range Interpretation Comments MAGNESIUM (test code = 0199815996) 2.3 mg/dL 1.7-2.4 Lab Interpretation (test code = Normal 59620-5) General acute hospital GLUCOSE (AUTOMATED)2021-06-20 12:01:50 Test Item Value Reference Range Interpretation Comments POCT GLU (test code = 3487822748) 114 mg/dL 70-110 H Lab Interpretation (test code = Abnormal 58150-0) General acute hospital GLUCOSE (AUTOMATED)2021-06-20 04:48:58 Test Item Value Reference Range Interpretation Comments POCT GLU (test code = 1239178860) 137 mg/dL 70-110 H Lab Interpretation (test code = Abnormal 69356-9) [facility] HospitalELECTROLYTES PANEL (66047)(NA, K, CL, CO2) 2021-06-20 04:41:11 Test Item Value Reference Range Interpretation Comments NA (test code = 6320761522) 122 mmol/L 135-145 L K (test code = 9356029715) 4.0 mmol/L 3.5-5.0 CL (test code = 0726728419) 94 mmol/L 98-108 L CO2 TOTAL (test code = 7303587136) 20 mmol/L 23-31 L AGAP (test code = 8387421788) 2-16 Lab Interpretation (test code = Abnormal 30217-8) General acute hospital GLUCOSE (AUTOMATED)2021-06-20 02:04:20 Test Item Value Reference Range Interpretation Comments POCT GLU (test code = 7752098709) 166 mg/dL 70-110 H Lab Interpretation (test code = Abnormal 71831-4) [facility] HospitalELECTROLYTES PANEL (15773)(NA, K, CL, CO2) 2021-06-19 22:21:27 Test Item Value Reference Range Interpretation Comments NA (test code = 5800284621) 120 mmol/L 135-145 L K (test code = 5891411957) 4.3 mmol/L 3.5-5.0 CL (test code = 4609305082) 90 mmol/L 98-108 L CO2 TOTAL (test code = 9398862411) 22 mmol/L 23-31 L AGAP (test code = 4394028884) 2-16 Lab Interpretation (test code = Abnormal 05410-2) [facility] HospitalOSMOLALITY, SERUM OR [id number] 20:32:51 Test Item Value Reference Range Interpretation Comments OSMOLALITY (test code = See_Comment L [Au tomated message] 3339970955) The system [employer] generated this result transmitted ref erence range: 278 - 30 5 mOsm/kg. The reference range was not used to int erpret this result as normal/abnormal . Lab Interpretation (test Abnormal code = 86709-7) [facility] HospitalRETICULOCYTES [id number] 18:52:41 Test Item Value Reference Range Interpretation Comments RETIC Count Automated 4.16 % 0.59-2.24 H (test code = 8220561687) RETIC Absolute Count See_Comment H [Autom ated message] (test code = 4926427462) The system which generated this result transmitted ref erence range: 0.0260 - 0.1170 10*6/?L. The reference range was not used to int erpret this result as normal/abnormal . IRF % (test code = 24.00 % 2.00-19.10 H 2817594019) RETIC-HE (test code = 35.8 pg 27.3-36.4 6887050495) Lab Interpretation (test Abnormal code = 27525-3) [facility] HospitalFERRITIN [id number] 18:12:11 Test Item Value Reference Range Interpretation Comments FERRITIN (test code = 245.0 ng/mL 18.0-464.0 3196081703) ALYSIA (test code = ALYSIA) Biotin has been reported to cause a negative bias, interpret results relative to patient's use of biotin. Lab Interpretation (test Normal code = 12705-0) [facility] HospitalTHYROID STIMULATING [id number] 18:07:51 Test Item Value Reference Range Interpretation Comments TSH (test code = See_Comment [Automated message] 5315531249) The system [employer] generated this result transmitted ref erence range: 0.45 - 4 .70 mIU/L. The refe rence range was not u sed to interpret this result as normal/abnor mal. Lab Interpretation (test Normal code = 69243-9) [facility] HospitalIRON [id number] 17:46:47 Test Item Value Reference Range Interpretation Comments IRON (test code = 4068548108) 38 ug/dL 50-160 L TIBC (test code = 0163466837) 320 ug/dL 250-410 % FE SAT (test code = 0400238018) 12 % 20-50 L Lab Interpretation (test code = Abnormal 99848-6) [facility] HospitalCREATINE [id number] 17:37:28 Test Item Value Reference Range Interpretation Comments CK (test code = 5745866698) 204 U/L 33-194 H Lab Interpretation (test code = Abnormal 42789-2) [facility] HospitalGlycosylated Hemoglobin (A1C)2021-06-19 15:28:01 Test Item Value Reference Range Interpretation Comments HGB A1C (test code = 5.5 % 4.0-5.7 4548-4) ALYSIA (test code = ALYSIA) Reference RangesNormal: <5.7%Prediabetes: 5.7 - 6.4%Diabetes: > 6.5% Lab Interpretation (test Normal code = 10213-1) [facility] HospitalTROPONIN [id number] 15:23:11 Test Item Value Reference Interpretation Comments Range TROPONIN I (test 0.006 ng/mL See_Comment [Automated code = 8289139462) message] The system which generated this result [...] biotin. Lab Interpretation Normal (test code = 06498-6) [facility] HospitalN-TERMINAL [id number] 15:19:46 Test Item Value Reference Range Interpretation Comments NT-proBNP (test code 610 pg/mL See_Comment H [Autom ated = 4925198643) message] The system which generated this result transmitted reference range : <=125. The reference range was not used to interpret this result as normal/abnormal . ALYSIA (test code = ALYSIA) Biotin has been reported to cause a negative bias, interpret results relative to patient's use of biotin. Lab Interpretation Abnormal (test code = 18571-9) [facility] HospitalMAGNESIUM2021-10-07 15:12:30 Test Item Value Reference Range Interpretation Comments MAGNESIUM (test code = 1610466363) 2.2 mg/dL 1.7-2.4 Lab Interpretation (test code = Normal 41033-8) [facility] HospitalCOMP. METABOLIC PANEL (50726)2021-06-19 15:12:25 Test Item Value Reference Range Interpretation Comments NA (test code = 120 mmol/L 135-145 L 8675786582) K (test code = 4.3 mmol/L 3.5-5.0 6926245079) CL (test code = 87 mmol/L 98-108 L 9368338411) CO2 TOTAL (test code = 22 mmol/L 23-31 L 0696496745) AGAP (test code = 2-16 6393454212) BUN (test code = 47 mg/dL 7-23 H 3343021406) GLUCOSE (test code = 110 mg/dL 70-110 5601890404) CREATININE (test code = 1.74 mg/dL 0.60-1.25 H 8968384805) TOTAL BILI (test code = 0.6 mg/dL 0.1-1.8 0184801296) CALCIUM (test code = 9.3 mg/dL 8.6-10.6 0545550108) T PROTEIN (test code = 7.2 g/dL 6.3-8.2 3135799500) ALBUMIN (test code = 4.6 g/dL 3.5-5.0 8432045889) ALK PHOS (test code = 99 U/L 34-122 8512185475) ALTv (test code = 48 U/L 550 2-6) AST(SGOT) (test code = 39 U/L 13-40 9891788161) eGFR (test code = mL/min/1.73m2 3605164531) ALYSIA (test code = ALYSIA) Association of [...] tests). Lab Interpretation Abnormal (test code = 23229-6) [facility] HospitalPHOSPHORUS2021-10-07 15:12:04 Test Item Value Reference Range Interpretation Comments PHOSPHORUS (test code = 0776143748) 4.4 mg/dL 2.5-5.0 Lab Interpretation (test code = Normal 71572-7) [facility] HospitalURIC [id number] 15:12:04 Test Item Value Reference Range Interpretation Comments URIC ACID (test code = 9616257919) 9.8 mg/dL 3.6-8.0 H Lab Interpretation (test code = Abnormal 53193-3) [facility] WITH [id number] 14:38:02 Test Item Value Reference Range Interpretation [...] RDW-SD (test code = 38.5 fL 38.5-51.6 62916-2) RDW-CV (test code = 12.1 % 12.1-15.4 788-0) PLT (test code = See_Comment [Automated 777-3) message] The sy stem which generated this result transmitted reference range : 150 - 328 10*3/ ?L. The reference r kathe was not used to interpret this result as normal/abnormal . MPV (test code = 10.0 fL 9.8-13.0 30937-1) NRBC/100 WBC (test See_Comment [Automat ed code = 7134363463) message] The system which generated this result transmitted reference range : 0.0 - 10.0 /100 WBCs. The refer ence range was not u sed to interpret th is result as normal/abnormal . NRBC x10^3 (test code <0.01 See_Comment [Auto mated = 5206074711) message] The s [employer] which generated this result transmitted reference range : 10*3/?L. The reference range was not used to interpret this result as normal/abnormal . GRAN MAT (NEUT) % 71.7 % (test code = 770-8) IMM GRAN % (test code 0.60 % = 0188265941) LYMPH % (test code = 12.4 % 736-9) MONO % (test code = 12.1 % 5905-5) EOS % (test code = 2.7 % 713-8) BASO % (test code = 0.5 % 706-2) GRAN MAT x10^3(ANC) 4.44 10*3/uL 1.99-6.95 (test code = 2113852095) IMM GRAN x10^3 (test 0.04 10*3/uL 0.00-0.06 code = 1888799563) LYMPH x10^3 (test code 0.77 10*3/uL 1.09-3.23 L = 731-0) MONO x10^3 (test code 0.75 10*3/uL 0.36-1.02 = 742-7) EOS x10^3 (test code = 0.17 10*3/uL 0.06-0.53 711-2) BASO x10^3 (test code 0.03 10*3/uL 0.01-0.09 = 704-7) Lab Interpretation Abnormal (test code = 90602-2) [facility] [id number] 11:32:00Surgical Pathology Report Case: [id number] Authorizing Provider: Abran Berrios MD Collected: 02/03/2017 0845 Ordering Location: [facility] Diagnostic Imaging Received: 02/03/2017 0915 [...] diabetic nephropathy. J Am Soc Nephrol 21:556-563, 2009.13634, 90419 x3, 39320, 61807 x7, 33158Jpdugdboyuy, DM and serum creatinine 1.3 to 1.4Left [...] normal to mild segmental hypercellularity. Focal Kimmelstiel Glenn nodules are seen. No endocapillary hypercellularity, crescents [...] or vascular staining. Fibrinogen: diffuse, glomerular and tubulointerstitial,weak.Tangent: negative glomeruli; rare small tubular casts are [...] segmentally effaced. Tubular basement membranes are thickened.POCT-GLUCOSE [id number] 09:15:00 Test Item Value Reference Range Interpretation Comments POC-GLUCOSE METER 140 mg/dL 70-110 H TESTED AT [address] (test code [facility] [place] = 1538) [address] PT/[id number] 07:43:00 Test Item Value Reference Range Interpretation Comments PROTIME ([facility]) (test code = 10.2 seconds 9.3-12.0 759) INR ([facility]) (test code = 370) 1.0 <=5.9 PARTIAL THROMBOPLASTIN TIME 25.9 seconds 23.0-35.0 ([facility]) (test code = 760) RECOMMENDED COUMADIN/WARFARIN INR THERAPY RANGESSTANDARD DOSE: 2.0 - 3.0 Includes: PROPHYLAXIS forvenous thrombosis, systemic embolization; TREATMENT for venous thrombosis and/or pulmonary embolus.HIGH RISK: Target INR is 2.5-3.5 for patients with mechanical heart valves.CBC W/PLT COUNT & AUTO DIFFERENTIAL 2017-02-03 07:39:00 Test Item Value Reference Range Interpretation Comments WHITE BLOOD CELL COUNT ([facility]) 6.2 K/ L 4.0-10.0 (test code = [...] L 0.00-0.20 (test code = 417) POCT-GLUCOSE [id number] 07:26:00 Test Item Value Reference Range Interpretation Comments POC-GLUCOSE METER 136 mg/dL 70-110 H TESTED AT [address] ([facility]) (test code [address] [facility] [place] = [id number]) [id number]"
[2021-11-14 10:18] LABS: Absolute Lymphocytes (CBC) 0.5 K/uL (0.7-4.9); Hematocrit 23.5 % (39.6-49.0); Lymphocytes % 15.7 % (15.3-44.8); MPV 7.5 fL (7.6-11.3)
[2021-11-14 10:25] LABS: Protime INR 1.18
[2021-11-14] MEDS ORDERED: PANTOPRAZOLE 40 MG INJ ONE (10:25)
[2021-11-14] MEDS ORDERED: NA CHLORIDE 0.9% 1,000 ML ONE (10:25)
[2021-11-14 10:34] LABS: Albumin 4.2 g/dL (3.4-5.0); Bilirubin Direct 0.1 mg/dL (0-0.2); Bilirubin Total 0.4 mg/dL (0.2-1.0); Magnesium 2.5 mg/dL (1.8-2.4); Potassium 4.4 mmol/L (3.5-5.1); Protein, Total 7.7 g/dL (6.4-8.2); Troponin High Sensitivity 14.7 pg/mL (<58.9)
--- NOTE | 2021-11-14 11:00 | RAD REPORT ---
EXAM DESCRIPTION: RAD - Chest Single View - 11/14/2021 10:30 am CLINICAL HISTORY: COUGH COMPARISON: Chest Single View dated 08/30/2021; Chest Single View dated 08/26/2021; Chest Single Vie w dated 08/22/2021; Chest Single View dated 08/17/2021 FINDINGS: Lines: None. Lungs: No evidence of edema or pneumonia. Pleural: No significant pleural effusions or pneumothorax. Cardiac: The heart size is within normal limits. Bones: No acute fractures. Other: IMPRESSION: No acute cardiopulmonary disease.
--- NOTE | 2021-11-14 11:28 | EDPHYS ---
Physician Documentation [facility] Name: Ivan Parra Age: 61 yrs Sex: Male : 1960 Arrival Date: 11/14/2021 Time: 09:42 Bed 25 Private MD: Michelle Edmondson G. ED Physician Josue Morley HPI: 11/14 10:21 This 61 yrs old Male presents to ER via Ambulatory with complaints of Abnormal yi Lab Results. 10:21 The patient presents to the emergency department with rectal bleeding, a small amount. yi Onset: The symptoms/episode began/occurred 3 day(s) ago. Abdominal pain: none is appreciated. Modifying factors: The symptoms are alleviated by nothing, the symptoms are aggravated by nothing. WEAKNESS, NEEDS BLOOD. Associated signs and symptoms: Pertinent positives: dizziness at rest. Severity of symptoms: At their worst the symptoms were mild in the emergency department the symptoms are unchanged. Historical: - Allergies: 09:54 No Known Allergies; ww - PMHx: 09:54 angina pectoris; Hypertensive disorder; Diabetes mellitus; Myocardial infarction; ww 09:54 Kidney disease; ww - PSHx: 09:54 cardiac stents; ww - Immunization history:: Adult Immunizations up to date. - Social history:: Smoking status: Patient denies any tobacco usage or history of. - Family history:: not pertinent. ROS: 10:21 Constitutional: Negative for fever, chills, and weight loss, Eyes: Negative for injury, yi pain, redness, and discharge, ENT: Negative for injury, pain, and discharge, Neck: Negative for injury, pain, and swelling, Cardiovascular: Negative for chest pain, palpitations, and edema, Respiratory: Negative for shortness of breath, cough, wheezing, and pleuritic chest pain, Abdomen/GI: Negative for abdominal pain, nausea, vomiting, diarrhea, and constipation, Back: Negative for injury and pain, : Negative for injury, bleeding, discharge, and swelling, MS/Extremity: Negative for injury and deformity, Skin: Negative for injury, rash, and discoloration, Neuro: Negative for headache, weakness, numbness, tingling, and seizure, Psych: Negative for depression, anxiety, suicide ideation, homicidal ideation, and hallucinations, Allergy/Immunology: Negative for hives, rash, and allergies, Endocrine: Negative for neck swelling, polydipsia, polyuria, polyphagia, and marked weight changes, Hematologic/Lymphatic: Negative for swollen nodes, abnormal bleeding, and unusual bruising. Exam: 10:21 Constitutional: This is a well developed, well nourished patient who is awake, alert, yi and in no acute distress. Head/Face: Normocephalic, atraumatic. ENT: Nares patent. No nasal discharge, no septal abnormalities noted. Tympanic membranes are normal and external auditory canals are clear. Oropharynx with no redness, swelling, or masses, exudates, or evidence of obstruction, uvula midline. Mucous membranes moist. Neck: Trachea midline, no thyromegaly or masses palpated, and no cervical lymphadenopathy. Supple, full range of motion without nuchal rigidity, or vertebral point tenderness. No Meningismus. Chest/axilla: Normal chest wall appearance and motion. Nontender with no deformity. No lesions are appreciated. Cardiovascular: Regular rate and rhythm with a normal S1 and S2. No gallops, murmurs, or rubs. Normal PMI, no JVD. No pulse deficits. Respiratory: Lungs have equal breath sounds bilaterally, clear to auscultation and percussion. No rales, rhonchi or wheezes noted. No increased work of breathing, no retractions or nasal flaring. Abdomen/GI: Soft, non-tender, with normal bowel sounds. No distension or tympany. No guarding or rebound. No evidence of tenderness throughout. Back: No spinal tenderness. No costovertebral tenderness. Full range of motion. Male : Normal genitalia with no discharge or lesions. Skin: Warm, dry with normal turgor. Normal color with no rashes, no lesions, and no evidence of cellulitis. MS/ Extremity: Pulses equal, no cyanosis. Neurovascular intact. Full, normal range of motion. Neuro: Awake and alert, GCS 15, oriented to person, place, time, and situation. Cranial nerves II-XII grossly intact. Motor strength 5/5 in all extremities. Sensory grossly intact. Cerebellar exam normal. Normal gait. Psych: Awake, alert, with orientation to person, place and time. Behavior, mood, and affect are within normal limits. 10:21 Eyes: Conjunctiva: pale. 10:21 Abdomen/GI: Inspection: abdomen appears normal, Bowel sounds: normal, Palpation: abdomen is soft and non-tender, Rectal exam: Stool: guaiac negative. Vital Signs: 09:52 BP 120 / 64; Pulse 73; Resp 18; Temp 97.6; Pulse Ox 100% ; Weight 78.02 kg; Height 5 ww ft. 8 in. (172.72 cm); Pain 0/10; 09:52 Body Mass Index 26.15 (78.02 kg, 172.72 cm) ww MDM: 10:04 Patient medically screened. [facility] 10:31 Differential diagnosis: gastritis. Data reviewed: vital signs, nurses notes, lab test yi result(s), EKG, radiologic studies, plain films. Data interpreted: personnel monitor: rate is 73 beats/min, rhythm is regular, Pulse oximetry: on room air is 100 %. Test interpretation: by ED physician or midlevel provider: ECG, plain radiologic studies. 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 11/14 10:06 Order name: Basic Metabolic Panel; Complete Time: 11:22 [facility] 11/14 10:06 Order name: CBC with Diff; Complete Time: 11:22 [facility] 11/14 10:06 Order name: LFT's; Complete Time: 11:22 [facility] 11/14 10:06 Order name: Magnesium; Complete Time: 11:22 [facility] 11/14 10:06 Order name: NT PRO-BNP; Complete Time: 11:22 [facility] 11/14 10:06 Order name: PT-INR; Complete Time: 11:22 [facility] 11/14 10:06 Order name: Troponin HS; Complete Time: 11:22 [facility] 11/14 10:06 Order name: Lipase; Complete Time: 11:22 [facility] 11/14 10:06 Order name: Type And Screen [facility] 11/14 10:06 Order name: SARS-COV-2 RT PCR (Document "Date of Onset" if Symptomatic) [facility] 11/14 10:44 Order name: Bb Add On eb 11/14 10:06 Order name: XRAY Chest (1 view); Complete Time: 11:22 [facility] 11/14 10:06 Order name: EKG; Complete Time: 10:08 [facility] 11/14 10:06 Order name: Cardiac monitoring; Complete Time: 10:21 [facility] 11/14 10:06 Order name: EKG - Nurse/Tech [facility] 11/14 10:06 Order name: IV Saline Lock; Complete Time: 10:08 [facility] 11/14 10:06 Order name: Labs collected and sent; Complete Time: 10:08 [facility] 11/14 10:06 Order name: O2 Per Protocol; Complete Time: 10:10 [facility] 11/14 10:06 Order name: O2 Sat Monitoring; Complete Time: 10:10 [facility] 11/14 10:09 Order name: Urine Dipstick-Ancillary (obtain specimen) [facility] 11/14 10:10 Order name: IV Saline Lock - Large Bore; Complete Time: 10:20 [facility] 11/14 10:41 Order name: Transfuse [facility] 11/14 10:52 Order name: Packed RBC Leukored EDMS Administered Medications: 10:23 Drug: NS 0.9% 1000 ml Route: IV; Rate: 125 ml/hr; Site: left forearm; trujillo 10:23 Drug: ProTONIX (pantoprazole) 40 mg Route: IVP; Site: left forearm; trujillo 10:27 Follow up: Response: No adverse reaction trujillo Disposition Summary: 11/14/21 11:27 Discharge Ordered Location: Home yi Problem: new yi Symptoms: have improved yi Condition: Stable yi Diagnosis - Anemia, unspecified yi - Weakness yi - Unspecified kidney failure - chronic insufficency yi Followup: yi - With: Michelle Edmondson MD - When: 1 - 2 days - Reason: Recheck today's complaints, Continuance of care, Re-evaluation by your physician Discharge Instructions: - Discharge Summary Sheet yi - Iron Deficiency Anemia, Adult yi - Anemia yi - Weakness yi - Fatigue yi - Iron-Rich Diet yi - Weakness, [id number] yi - Chronic Kidney Disease, Adult, [id number] yi - Deconditioning yi - Iron Deficiency Anemia, Adult, [id number] yi Forms: - Medication Reconciliation Form yi - Thank You Letter yi - Antibiotic Education yi - Prescription Opioid Use yi Prescriptions: - Ferrous Sulfate 325 mg (65 mg Iron) Oral Tablet - take 1 tablet by ORAL route every 8 hours; 90 tablet; Refills: 0, Product yi Selection Permitted Signatures: Dispatcher [employer] EDJosue Callejas MD MD cha Mickail, Joel, PA PA jmm Wood, Carri, RN RN Sharona Blackwood RN RN trujillo Corrections: (The following items were deleted from the chart) 10:51 10:42 PACKED RBC LEUKORED -1+BB.LAB.BRZ ordered. EDMS EDMS 10: 10:42 ABO/RH typing ordered. EDMS EDMS 10: 10:42 Antibody Screen ordered. EDMS EDMS
--- NOTE | 2021-11-14 11:28 | ER ---
Nurse's Notes [facility] Name: Ivan Parra Age: 61 yrs Sex: Male : 1960 Arrival Date: 11/14/2021 Time: 09:42 Bed 25 Private MD: Mcihelle Edmondson G. Diagnosis: Anemia, unspecified;Weakness;Unspecified kidney failure-chronic insufficency Presentation: 11/14 09:52 Chief complaint: Patient states: Sent from his Dr for abnomal hemoglobin. Patient ww thinks its below 7 and needs a blood transfusion. Had 2 dark stools and said it didn't have blood in it. Coronavirus screen: Vaccine status: Patient reports receiving the 2nd dose of the covid vaccine. Client denies travel out of the [place] in the last 14 days. Ebola Screen: Patient denies travel to an Ebola-affected area in the 21 days before illness onset. Initial Sepsis Screen: Does the patient meet any 2 criteria? No. Patient's initial sepsis screen is negative. Does the patient have a suspected source of infection? No. Patient's initial sepsis screen is negative. Risk Assessment: Do you want to hurt yourself or someone else? Patient reports no desire to harm self or others. Onset of symptoms is unknown. 09:52 Method Of Arrival: Ambulatory ww 09:52 Acuity: KERWIN 3 ww Triage Assessment: 09:54 General: Appears in no apparent distress. Behavior is calm, cooperative. Pain: Denies ww pain. EENT: No signs and/or symptoms were reported regarding the EENT system. Neuro: Level of Consciousness is awake, alert, obeys commands, Oriented to person, place, time, situation, Moves all extremities. Speech is normal. Cardiovascular: Capillary refill < 3 seconds Patient's skin is warm and dry. Respiratory: Airway is patent Respiratory effort is even, unlabored, Respiratory pattern is regular, symmetrical. GI: Reports bloody stool. Musculoskeletal: No signs and/or symptoms reported regarding the musculoskeletal system. Historical: - Allergies: 09:54 No Known Allergies; ww - PMHx: 09:54 angina pectoris; Hypertensive disorder; Diabetes mellitus; Myocardial infarction; ww 09:54 Kidney disease; ww - PSHx: 09:54 cardiac stents; ww - Immunization history:: Adult Immunizations up to date. - Social history:: Smoking status: Patient denies any tobacco usage or history of. - Family history:: not pertinent. Screenin:02 Abuse screen: Denies threats or abuse. Denies injuries from another. Nutritional trujillo screening: No deficits noted. Tuberculosis screening: No symptoms or risk factors identified. Fall Risk None identified. Assessment: 10:01 Reassessment: pt presented to ED reporting PCP referred pt to come to ED for abnormal trujillo lab values with low HGB. General: Appears in no apparent distress. Behavior is calm, cooperative. Pain: Denies pain. Vital Signs: 09:52 BP 120 / 64; Pulse 73; Resp 18; Temp 97.6; Pulse Ox 100% ; Weight 78.02 kg; Height 5 ww ft. 8 in. (172.72 cm); Pain 0/10; 09:52 Body Mass Index 26.15 (78.02 kg, 172.72 cm) ww ED Course: 09:42 Patient arrived in ED. am2 09:42 Michelle Edmondson MD is Private Physician. am2 09:54 Triage completed. ww 09:55 Arm band placed on right wrist. ww 10:02 Allergy band placed. Bed in low position. trujillo 10:02 No provider procedures requiring assistance completed. trujillo 10:02 Inserted saline lock: 20 gauge in left forearm, using aseptic technique. trujillo 10:04 Josue Morley MD is Attending Physician. [facility] 10:10 Type And Screen Sent. trujillo 10:30 XRAY Chest (1 view) In Process Unspecified. EDKS 11:26 Michelle Edmondson MD is Referral Physician. yi 11:37 IV discontinued, intact, Pressure dressing applied. trujillo Administered Medications: 10:23 Drug: NS 0.9% 1000 ml Route: IV; Rate: 125 ml/hr; Site: left forearm; trujillo 10:23 Drug: ProTONIX (pantoprazole) 40 mg Route: IVP; Site: left forearm; trujillo 10:27 Follow up: Response: No adverse reaction trujillo Outcome: 11:27 Discharge ordered by . yi 11:37 Discharged to home truj[place] 11:37 Condition: good 11:37 Discharge instructions given to patient, Prescriptions given X 1. 11:37 Patient left the ED. trujillo Signatures: Dispatcher [employer] EDKS Josue Morley MD MD cha Moreno, Amanda am2 Carri Everett RN RN Sharona Blackwood RN RN trujillo Corrections: (The following items were deleted from the chart) 09:55 09:52 Chief complaint: Patient states: Sent from his Dr for abnomal hemoglobin. Patient ww thinks its below 7 and needs a blood transfusion. ww
[2021-11-14 11:48] VITALS: BP 120/64; TEMP 97.6; O2SAT 100
== END 2021-11-14 11:37 | disposition home or self-care (01) ==
LOC: ER 09:37
DX: D64.9 Anemia, unspecified (principal); E11.22 Type 2 diabetes mellitus with diabetic chronic kidney disease; I12.9 Hypertensive chronic kidney disease with stage 1 through stage 4 chronic kidney disease, or unspecified chronic kidney disease; N18.9 Chronic kidney disease, unspecified; Z95.818 Presence of other cardiac implants and grafts; Z20.822 Contact with and (suspected) exposure to COVID-19
CPT/HCPCS: 93005; 85025; 80048; 36415; 86900; 83735; 86850; 85610; 86901; 80076; 84484; 83690; 83880; 71045; 96374; 99284; U0003; C9113; J7030

== ENCOUNTER 2022-03-09 19:31 | Emergency (ER) | payer BC ==
--- OUTSIDE RECORDS SUMMARY | 2022-03-09 19:36 | XMS REPORT | Continuity of Care Document ---
:[address] [facility] t Address 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 [place] 0-07 ity of syndrome syndrome 00:00: [place] [address] Medical Branch Allergies, Adverse Reactions, Alerts Allergy Allergy Status Severity Reaction(s) Onset Inactive Treating Comm ents Source Name Type Date Date Clinician No Known DA Active U [facility] Allergie 1-12 Clear s 00:00: Sawant 00 [facility] No Known DA Active U 2021-0 [facility] Allergie 1-11 Clear s 00:00: Sawant 00 [facility] NO KNOWN Drug Active Univers ALLERGIE Class ity of S [facility] NO KNOWN Allergy Active [facility] ALLERGIE S Social History Social Habit Start Date Stop Date Quantity Comments Source Exposure to Not sure [facility] SARS-CoV-2 [place] Medical (event) Branch Tobacco use and 2021-06-19 2021-06-19 Never used Universit y of exposure 00:00:00 00:00:00 [facility] Alcohol intake 2021-06-19 2021-06-19 Ex-drinker [facility] 00:00:00 00:00:00 (finding) [facility] Sex Ass[birth year] At [birth year] Universit y of 00:00:00 00:00:00 [facility] Smoking Status Start Date Stop Date Source Never smoker [facility] Medications Ordered Filled Start Stop Current Ordering Indication Dosage Frequency Signature Comments Components Source Medication Medication Date Date Medication? Clinician (SIG) Name Name amLODIPine 2020-09 Yes [id number] 5mg Take 1 U nivers 5 mg tablet 0-10 tablet by ity of 00:00: mouth [place] 00 daily. Medical Branch cholecalcif 2020-09 Yes [id number] 2000U Take 2 Univers savanah, 0-10 tablets by ity of vitamin D3, 00:00: mouth [place] 25 mcg 00 daily. Medical (1,000 Branch unit) tablet lisinopriL 2020-09 Yes [id number] 5mg Take 1 U nivers 5 mg tablet 0-10 tablet by ity of 00:00: mouth [place] 00 daily. Medical Branch amLODIPine 2020-09 Yes [id number] 5mg Take 1 U nivers 5 mg tablet 0-10 tablet by ity of 00:00: mouth [place] 00 daily. Medical Branch cholecalcif 2020-09 Yes [id number] 2000U Take 2 Univers savanah, 0-10 tablets by ity of vitamin D3, 00:00: mouth [place] 25 mcg 00 daily. Medical (1,000 Branch unit) tablet lisinopriL 2020-09 Yes [id number] 5mg Take 1 U nivers 5 mg tablet 0-10 tablet by ity of 00:00: mouth [place] 00 daily. Medical Branch febuxostat 2020-09 Yes [id number] 40mg 40 mg, U nivers (ULORIC) 0-09 Oral, ity of tablet 40 14:00: DAILY, [place] mg 00 First dose Medical on Sat Branch 06/21/21 at 0900, Until Discontinu ed, Routine lisinopriL 2020-09 Yes [id number] 5mg 5 mg, Un chani (PRINIVIL,Z 0-09 [...] by mouth ity of tablet 11:52: daily. [place] [address] Medical Branch levocetiriz 2020-09 Yes 5mg Take 5 mg U nivers ine 5 mg 0-09 by mouth ity of tablet 11:52: daily. [place] [address] Medical Branch rosuvastati 2020-09 Yes 40mg Take 40 mg Univers n 40 mg 0-09 by mouth ity of tablet 11:52: every [place] [address] evening. Medical With Branch dinner linagliptin 2020-09 [...] by mouth ity of tablet 11:52: daily. [place] [address] Medical Branch levocetiriz 2020-09 Yes 5mg Take 5 mg U nivers ine 5 mg 0-09 by mouth ity of tablet 11:52: daily. [place] [address] Medical Branch rosuvastati 2020-09 Yes 40mg Take 40 mg Univers n 40 mg 0-09 by mouth ity of tablet 11:52: every [place] [address] evening. Medical With Branch dinner linagliptin 2020-09 Yes 1{tbl} Take 1 Un chani -metformin 0-09 tablet by ity of (JENTADUETO 11:52: mouth 2 Naresh as ) 2.5-500 04 (two) Medical mg Tab times [place] daily. icosapent 2020-09 Yes 1{capsu Take 1 Uni vers ethyL 1 0-09 le} capsule by ity of gram 11:52: mouth 2 [place] capsule 04 (two) Medical times [place] daily. Diflupredna 2020-09 Yes 1[drp] Place 1 U nivers te 0-09 Drop in ity of (DUREZOL) 11:52: each eye 2 [place] 0.05 % Drop 04 (two) Medical times Branch daily. Both eyes lisinopriL 2020-09- No 40mg Take 40 mg Univers 40 mg 0-09 10-09 by mouth 2 ity of tablet 09:27: 00:00 (two) [place] 02 :00 times Medical daily. Branch hydrALAZINE 2020-09 No 50mg Take 50 mg Univers 50 mg 0-09 10-09 by mouth 3 ity of tablet 09:27: 00:00 (three) [place] 02 :00 times Medical daily. Branch furosemide 2020-09- No 20mg Take 20 mg Univers 20 mg 0-09 10-09 by mouth ity of tablet 09:27: 00:00 every [place] 02 :00 morning Medical and Branch evening. 0800 am and 1400 febuxostat 2020-09 Yes [id number] 40mg Take 1 U nivers 40 mg 0-09 tablet by ity of tablet 00:00: mouth [place] 00 daily. Medical Branch febuxostat 2020-09 Yes [id number] 40mg Take 1 U nivers 40 mg 0-09 tablet by ity of tablet 00:00: mouth [place] 00 daily. Medical Branch NaCl 0.9% 2020-09 Yes [id number] IV Unive rs (NS) IV 0-08 Infusion, ity of infusion 19:15: at 100 [place] 00 mL/hr, Medical CONTINUOUS Branch , Starting on Wed06/20/21 at 1415, Until Discontinu ed, STAT amLODIPine 2020-09 Yes [id number] 5mg 5 mg, Un chani (NORVASC) 0-08 [...] Discontinu ed, Routine NaCl 0.9% 2020-09- No [id number] IV Univ ers (NS) IV 0-08 10-08 Infusion, ity of infusion 13:30: 19:02 at 75 [place] 00 :45 mL/hr, Medical CONTINUOUS Branch , Starting on Wed06/20/21 at 0830, Until Wed06/20/21 at 1402, STAT heparin 2020-09 Yes 5000U 5,000 Univers (porcine) 0-08 Units, ity of injection 11:00: Subcutaneo [place] 5,000 Units 00 us, Q8H, [facility] dharmesh First dose Branch on Wed06/20/21 at 0600, Until Discontinu ed, Routine rosuvastati 2020-09 Yes [id number] 40mg 40 mg, Univers n (CRESTOR) 0-08 Oral, QHS, it y of tablet 40 02:00: First dose [place] mg 00 on [facility] 06/19/21 at Branch 2100, Until Discontinu ed, Routine ferrous 2020-09 Yes [id number] 325mg 325 mg, Un chani sulfate 0-08 Oral, BID, ity of tablet 325 01:00: First dose [place] mg 00 on [facility] 06/19/21 at Branch 2000, Until Discontinu ed, Routine hydrALAZINE 2020-09- No [id number] 50mg 50 mg, Univers (APRESOLINE 0-08 10-08 Oral, BID, i ty of ) tablet 50 01:00: 02:31 1 dose, [place] mg 00 :00 First dose Medical (after Branch last modificati on) on [facility] 06/19/21 at 2000, Routine NaCl 0.9% 2020-09- No [id number] IV Univ ers (NS) IV 0-07 10-08 [...] Starting on [place] 06/19/21 at 1230, Until [facility] 06/19/21 at 1741, Routine Sliding 2020-09 Yes Subcutaneo Univ ers Scale 0-07 us, TID ity of Insulin - 17:00: MEALS+HS, [place] as Lispro 00 First dose Medical (HumaLOG) + on [facility] 06/19/21 at Testing 1200, Until Discontinu ed, Routine glucagon 2020-09 Yes 1mg 1 mg, Univers (GLUCAGEN 0-07 Intramuscu ity of DIAGNOSTIC 15:05: lar, PRN, [place] KIT) 01 Starting Medical injection 1 on [facility] mg 06/19/21 at 1005, Until Discontinu ed, LOBO, Blood Glucose < or = 70 mg/dL and patient is unable to swallow or has mental changes. dextrose 50 2020-09 Yes 25mL 25 mL, Univ ers % in water 0-07 Slow IV ity of (D50W) 15:05: Push, PRN, [place] injection 01 Starting Medica l 25 mL on [facility] Branch 06/19/21 at 1005, Until Discontinu ed, LOBO, Blood Glucose < or = 70 mg/dL and patient is unable to swallow or has mental status changes. cholecalcif 2020-09 Yes [id number] 2000U 2,000 Univers [place] 0-07 Units, ity of (vitamin 14:45: Oral, [place] D3) tablet 00 DAILY, Medical 2,000 Units First dose Br anch on [place] 06/19/21 at 0945, Until Discontinu ed, Routine acetaminoph 2020-09 Yes 650mg 650 mg, Un chani en 0-07 Oral, ity of (TYLENOL) 14:18: Q6HPRN, [place] tablet 650 47 Starting Medic al mg on [place] Branch 06/19/21 at 0918, Until Discontinu ed, Routine, Pain (scale 1-3) glimepiride 2020-09 No 4mg Take 4 mg Univers 4 mg tablet 06-19 by mouth ity of 12:08: 00:00 daily with [place] 53 :00 breakfast. Medical Branch bisoproloL- 2020-09 No 1{tbl} Take 1 U nivers hydrochloro 006-19 tablet by it y of thiazide 12:08: 00:00 mouth 2 [place] 10-6.25 mg 53 :00 (two) Medical per tablet times Branch daily. Immunizations Ordered Filled Immunization Date Status Comments [facility] e Immunization Name Name Pneumococcal 2021-06-21 Completed Home o f Polysaccharide, 00:00:00 [place] Med ical PPSV23 (PNEUMOVAX) Branch Pneumococcal 2021-06-21 Completed Home o f Polysaccharide, 00:00:00 [place] Med ical PPSV23 (PNEUMOVAX) Branch Influenza Virus 2020-07-14 Completed Universit y of Vaccine Quad IM 00:00:00 [place] Med ical Multi-dose 6+ MO Branch Influenza Virus 2020-07-14 Completed Universit y of Vaccine Quad IM 00:00:00 [place] Med ical Multi-dose 6+ MO Branch Vital Signs Vital Name Observation Time Observation Value Comments Source HEIGHT 2021-08-14 00:15:00 172.7 cm WEIGHT 2021-08-14 00:15:00 79.379 kg HEIGHT 2021-08-13 23:00:00 172.7 cm WEIGHT 2021-08-13 23:00:00 79.379 kg HEIGHT 2021-08-14 00:15:00 172.7 cm WEIGHT 2021-08-14 00:15:00 79.379 kg HEIGHT 2021-08-13 23:00:00 172.7 cm WEIGHT 2021-08-13 23:00:00 79.379 kg Heart rate 2021-06-21 14:00:00 88 /min [facility] Respiratory rate 2021-06-21 14:00:00 13 /min [facility] Oxygen saturation in 2021-06-21 14:00:00 98 /min [facility] Arterial blood by [facility] Pulse oximetry Branch Systolic blood 2021-06-21 13:02:00 151 mm[Hg] Univer sity [facility] Diastolic blood 2021-06-21 13:02:00 75 mm[Hg] [facility] Body temperature 2021-06-21 13:02:00 36.22 Yadira [facility] Body weight 2021-06-20 09:51:00 82.464 kg [facility] BMI 2021-06-20 09:51:00 27.64 kg/m2 [facility] Body height 2021-06-19 20:00:00 172.7 cm [facility] Procedures Procedure Date / Time Performing Clinician Source Performed POCT GLUCOSE (AUTOMATED) 2021-06-21 13:21:00 Jose Jean [facility] MAGNESIUM 2021-06-21 10:35:00 [place] OSMOLALITY URINE 2021-06-21 10:35:00 [facility] RE[facility]EL 2021-06-21 10:35:00 [facility] ELECTROLYTES PANEL 2021-06-21 10:35:00 [facility] ([id number][facility]NA, K, CL, CO2) [facility] POTASSIUM, URINE RANDOM 2021-06-21 10:35:00 Delvis, [facility] SODIUM, URINE RANDOM 2021-06-21 10:35:00 Delvis, [facility] ELECTROLYTES PANEL 2021-06-21 01:20:[facility] ([id number][facility]NA, K, CL, CO2) [facility] POCT GLUCOSE (AUTOMATED) 2021-06-21 01:14:00 Jose Jean [facility] POCT GLUCOSE (AUTOMATED) 2021-06-20 22:05:00 Jose Jean [facility] ELECTROLYTES PANEL 2021-06-20 17:24:00 [facility] ([id number])(NA, K, CL, CO2) [facility] OSMOLALITY URINE 2021-06-20 10:13:00 Delvis, [facility] POTASSIUM, URINE RANDOM 2021-06-20 10:13:00 Delvis, [facility] SODIUM, URINE RANDOM 2021-06-20 10:13:00 [place]vis, [facility] MAGNESIUM 2021-06-20 10:12:00 [facility] VITAMIN B12, LEVEL 2021-06-20 10:12:00 Saul Jose [facility] FOLATE 2021-06-20 10:12:00 Jose Jean [facility] RENAL PANEL 2021-06-20 10:12:00 [place], [facility] VITAMIN D, 25-OH 2021-06-20 10:12:00 Saul [facility] ELECTROLYTES PANEL 2021-06-20 03:25:00 [facility] ([id number])(NA, K, CL, CO2) [facility] POCT GLUCOSE (AUTOMATED) 2021-06-20 02:30:00 Jose Jean [facility] POCT GLUCOSE (AUTOMATED) 2021-06-20 01:12:00 Jose Jean [facility] POCT GLUCOSE (AUTOMATED) 2021-06-19 22:34:00 Jose Jean [facility] ELECTROLYTES PANEL 2021-06-19 21:21:00 [facility] ([id number])(NA, K, CL, CO2) [facility] POCT GLUCOSE (AUTOMATED) 2021-06-19 16:58:00 Jose Jean [facility] POCT GLUCOSE (AUTOMATED) 2021-06-19 14:31:00 Jose Jean [facility] PHOSPHORUS 2021-06-19 14:17:00 [facility] CREATINE KINASE 2021-06-19 14:17:00 Jose Jean [facility] URIC ACID 2021-06-19 14:17:00 [facility] MAGNESIUM 2021-06-19 14:17:00 [facility] FERRITIN SERUM 2021-06-19 14:17:00 Saul [facility] OSMOLALITY, SERUM OR 2021-06-19 14:17:00 Delvis [facility] PLASMA [facility] OSMOLALITY URINE 2021-06-19 14:17:00 Delvis [facility] TROPONIN I 2021-06-19 14:17:00 [facility] THYROID STIMULATING 2021-06-19 14:17:00 Jose Jean [facility] HORMONE [facility] COMP. METABOLIC PANEL 2021-06-19 14:17:00 Delvis [facility] ([id number]) [facility] IRON PANEL 2021-06-19 14:17:00 Jose Jean [facility] DIFF CONSULT 2021-06-19 14:17:00 Jose Jean [facility] INTERPRETATION [facility] CBC WITH DIFF 2021-06-19 14:17:00 [facility] GLYCOSYLATED HEMOGLOBIN 2021-06-19 14:17:00 Jose Jean [facility] (A1C) [facility] URINALYSIS MICROSCOPIC 2021-06-19 14:17:00 Delvis [facility] RETICULOCYTES AUTOMATED 2021-06-19 14:17:00 Jose Jean [facility] N-TERMINAL PRO-BNP 2021-06-19 14:17:00 [facility] POTASSIUM, URINE RANDOM 2021-06-19 14:17:00 [place]vis [facility] SODIUM, URINE RANDOM 2021-06-19 14:17:00 Michelle Edmondson [facility] PROTEIN CREAT RATIO URINE 2021-06-19 14:17:00 [facility] Branch COVID-19 (ID NOW RAPID 2021-06-19 14:17:00 Michelle Edmondson [facility] TESTING) Medical Branch LAB ONLY COVID 2021-06-19 14:17:00 Michelle Edmondson [facility] [place] INTERPRETATION [facility] PATIENT FINANCIAL 2021-06-19 13:01:56 [facility] NO SHOW OR MISSED 2021-06-19 13:01:37 Doctor Unassigned, [facility] APPOINTMENT POLICY [facility] ACKNOWLEDGEMENT NOTICE OF PRIVACY 2021-06-19 13:01:16 Doctor Unassfawn, [facility] PRACTICES [facility] CONSENT/REFUSAL FOR 2021-06-19 13:01:02 Doctor Unassfawn, [facility] DIAGNOSIS AND TREATMENT [facility] ASSIGNMENT OF BENEFITS 2021-06-19 13:00:44 Doctor Unassigned, Un [facility] Encounters Start End Encounter Admission Attending Care Care Encounter Source Date/Time Date/Time Type Type Clinicians Facility Department ID 2021-09-23 Inpatient MASSIEL Barakat OUTD [id number] [facility] 09:30:00 Harpal [id number] [facility] 2021-07-15 Inpatient Ja [facility] [id number] Univers 04:45:31 JOSE [facility] 2021-09-24 2021-09-24 Outpatient OSMANY BarakatAXEL OUTD [id number] [facility] 05:04:00 05:04:00 Hapral [id number] [facility] 2021-09-24 2021-09-24 Outpatient OSMANY BarakatAXEL CERONCL [id number] [facility] 05:04:00 05:04:00 Harpal 51 [facility] 2021-08-13 2021-08-15 Outpatient ER NATACHA BURGESS Cardiology [id number] [facility] 22:46:00 14:50:00 GOLDY 2021-08-13 2021-08-13 Outpatient [facility] [id number] [facility] 00:00:00 23:59:00 Erich candelaria of Medicin e 2021-07-08 2021-07-08 Outpatient [facility] [id number] [place] 00:00:00 00:00:00 881 Method i 2021-06-23 2021-06-23 Transition Siva Cantu [id number] [facility] [place] [facility] 00:00:00 00:00:00 of Care Pablo Hugginsy [id number] ity of [id number] [id number] [facility] 403 Branch 2021-06-19 2021-06-21 [facility] [id number] [facility] [place] [facility] 08:50:00 11:15:00 Encounter Joseganesh Riceton [id number] ity [id number] [id number] [facility] 080 Branch 2021-06-13 2021-06-13 Outpatient NAUTIYAL, [facility] [id number] [place] 00:00:00 00:00:00 PEREZ 814 Method i 2021-05-16 2021-05-16 Outpatient NAUTIYAL, [facility] [id number] [place] 00:00:00 00:00:00 PEREZ 336 Method i 2021-04-18 2021-04-18 Outpatient NAUTIYAL, [facility] [id number] [place] 00:00:00 00:00:00 PEREZ 545 Method i 2021-03-21 2021-03-21 Outpatient NAUTIYAL, [facility] [id number] [place] 00:00:00 00:00:00 PEREZ 979 Method i 2021-02-21 2021-02-21 Outpatient NAUTIYAL, [facility] [id number] [place] 00:00:00 00:00:00 PEREZ 833 Method i 2021-01-17 2021-01-17 Outpatient NAUTIYAL, [facility] [id number] [place] 00:00:00 00:00:00 KIRTAN [address] 2020-12-20 2020-12-20 Outpatient NAUTIYAL, [facility] [id number] [place] 00:00:00 00:00:00 KIRTAN [address] 2020-12-12 2020-12-12 Outpatient ROBBEN, [facility] [id number] [place] 00:00:00 00:00:00 RAÚLER [address] 2020-11-21 2020-11-21 Outpatient [facility] [id number] [place] 00:00:00 00:00:[address] 2020-11-15 2020-11-15 Outpatient NAUTIYAL, [facility] [id number] [place] 00:00:00 00:00:00 KIRTAN [address] 2020-10-11 2020-10-11 Outpatient NAUTIYAL, [facility] [id number] [place] 00:00:00 00:00:00 KIRTAN [address] 2020-09-12 2020-09-12 Outpatient NAUTIYAL, [facility] [id number] [place] 00:00:00 00:00:00 KIRTAN [address] 2020-08-16 2020-08-16 Outpatient NAUTIYAL, [facility] [id number] [place] 00:00:00 00:00:00 KIRTAN [address] 2020-08-06 2020-08-06 Outpatient NAUTIYAL, [facility] [id number] [place] 00:00:00 00:00:00 KIRTAN [address] 2020-07-19 2020-07-19 Outpatient NAUTIYAL, [facility] [id number] [place] 00:00:00 00:00:00 KIRTAN [address] 2020-06-21 2020-06-21 Outpatient NAUTIYAL, [facility] [id number] [place] 00:00:00 00:00:00 KIRTAN [address] 2020-05-24 2020-05-24 Outpatient NAUTIYAL, [facility] [id number] [place] 00:00:00 00:00:00 KIRTAN [address] 2020-04-26 2020-04-26 Outpatient NAUTIYAL, [facility] [id number] [place] 00:00:00 00:00:00 KIRTAN [address] 2020-03-22 2020-03-22 Outpatient MIRA, [facility] [id number] [place] 00:00:00 00:00:00 KIRTAN [address] 2020-02-23 2020-02-23 Outpatient MIRA, [facility] [id number] [place] 00:00:00 00:00:00 KIRTAN [address] 2020-02-02 2020-02-02 Outpatient MIRA, [facility] [id number] [place] 00:00:00 00:00:00 KIRTAN [address] 2020-01-26 2020-01-26 Outpatient MIRA, [facility] [id number] [place] 00:00:00 00:00:00 KIRTAN [address] 2019-12-29 2019-12-29 Outpatient MIRA, [facility] [id number] [place] 00:00:00 00:00:00 KIRTAN [address] 2019-11-24 2019-11-24 Outpatient MIRA, [facility] [id number] [place] 00:00:00 00:00:00 KIRTAN [address] Results Test Description Test Time Test Comments Results Result Comments Source GLUCOSE BEDSIDE 2021-09-24 14:48:00 Test Item Value Reference Range Interpretation Comme nts GLUCOSE BEDSIDE (test code = 143 MG/DL 70-110 H Performed by certified extractor operator solvent process at [facility]) [facility] [id number] 14:20:00 Test Item Value Reference Range Interpretation Comments ACT-ISTAT (test code 249 SEC 74-137 H Perform ed by certified = ACTI) extractor operator solvent process at [facility] [id number] 14:20:00 Test Item Value Reference Range Interpretation Comments ACT-ISTAT (test code 243 SEC 74-137 H Perform ed by certified = ACTI) extractor operator solvent process at [facility] PROTHROMBIN [id number] 10:49:00 Test Item Value Reference Range Interpretation [...] o prevent recurre nt infarct). BASIC METABOLIC [id number] 10:46:00 Test Item Value Reference Range Interpretation [...] 9.2 mg/dL 8.0-10.5 N CA) CBC W/AUTO [id number] 10:39:00 Test Item Value Reference Range Interpretation [...] 0.0-0.1 N NRBC#) - XR CHEST 2 [id number] 00:00:00 [facility] 1960 Sex: M FAX: Mike Mak MD [phone] [place]: St: PRE FAX: Harpal Marr MD [phone] Name: JULIO MARIE [facility] : 1960 Age/S: 61/M [address] [place] [address] Unit #: [id number] Loc: [place] [address] Phys: Harpal Jimenez MD Acct: [id number] Dis Date: Status: PRE [facility] PHONE #: [phone] Exam Date: 09/23/2021 1115 FAX #: [phone] Reason: PREOP EXAMS: CPT CODE: [id number] XR CHEST 2 V 27064 PROCEDURE INFORMATION: Exam: XR Chest Exam date [...] S: 09/23/2021 (1210) PAGE 1 Signed ReportPOCT-GLUCOSE [id number] 11:33:36 Test Item Value Reference Range Interpretation Comments POC-GLUCOSE METER 132 mg/dL 70-110 H : TESTED A T [facility] 6720 (BEAKER) (test code = BLANCHE Agrawal [place], 1538) 45014: Wet Pan Mixer/Techni doyle ID = [id number] for Anne Huitron POCT-GLUCOSE [id number] 06:03:47 Test Item Value Reference Range Interpretation Comments POC-GLUCOSE METER 121 mg/dL 70-110 H : TESTED A T [facility] 6720 (BEAKER) (test code = [facility] Privy [facility], 1538) 13843: Wet Pan Mixer/Techni doyle ID = [id number] for LUBA NUGENTJULIANPEDRO BASIC METABOLIC [id number] 06:01:00 Test Item Value Reference Range Interpretation [...] S NOT APPLICABLE FOR DIALYSIS PATIEN TS. Wet Pan Mixer ID - JEAN CARLOS GPOCT-GLUCOSE [id number] 21:05:06 Test Item Value Reference Range Interpretation Comments POC-GLUCOSE METER 115 mg/dL 70-110 H : TESTED A T [facility] 6720 (LoiLo) (test code = [facility], 1538) 17906: Wet Pan Mixer/Techni doyle ID = [id number] for UG SHOLA DURANA POCT-GLUCOSE [id number] 19:02:49 Test Item Value Reference Range Interpretation Comments POC-GLUCOSE METER 144 mg/dL 70-110 H : TESTED A T [facility] 6720 (LoiLo) (test code = [facility], 1538) 08852: Wet Pan Mixer/Techni doyle ID = [id number] for St Belen amaro POCT-GLUCOSE [id number] 16:51:49 Test Item Value Reference Range Interpretation Comments POC-GLUCOSE METER 185 mg/dL 70-110 H : TESTED A T [facility] 6720 (LoiLo) (test code = [facility], 1538) 10597: Wet Pan Mixer/Techni doyle ID = [id number] for Re Adriana jefferson [facility], MULTI, PHARM, [id number] 15:15:00Unlisted Reason for Exam - Click Yes and Enter Reason Below->No [facility] : 1960 Sex: MFINAL REPORT PROCEDURE: MYOCARDIAL PERFUSION SPECT IMAGING (Rest/Stress)CPT CODE: 40149 INDICATION: CAD risk, intermediate risk, Chest pain [...] prior study for comparison. Signed: Wilder Mejia Verified Date/Time: 08/14/2021 15:15:39 Reading Location: [address] Reading Room HEMOGLOBIN [id number] 10:49:00 Test Item Value Reference Range Interpretation Comments HEMOGLOBIN A1C (LIVE) (test code = 5.5 % 4.3-6.1 368) POCT-GLUCOSE [id number] 09:34:32 Test Item Value Reference Range Interpretation Comments POC-GLUCOSE METER 145 mg/dL 70-110 H : TESTED A T [facility] 6720 (BEAKER) (test code = BLANCHE Agrawal [facility], 1538) 58795: Wet Pan Mixer/Techni doyle ID = [id number] for ROSSI FISCHER HIGH SENSITIVITY TROPONIN [id number] 05:11:36 Test Item Value Reference Range Interpretation Comments HIGH SENSITIVITY 26 pg/ml See_Comment [Automated message] TROPONIN I (test code = The system which [id number]) generated this result transmitted ref erence range: <=35. Th e reference range was not used to int erpret this result as normal/abnormal . Wet Pan Mixer ID - GISELL Oliverae AIRPLANE PATROLLER STAT High Sensitivity Troponin-I results should be used in conjunction with other diagnostic information such as ECG, clinical observations and information, and patient symptoms to aid in the diagnosis of NC.LIPID [id number] 05:07:50 Test Item Value Reference Range Interpretation [...] Borderline 130-159 High 160-189 Very High >=190 Wet Pan Mixer ID - GISELL MBASIC METABOLIC [id number] 05:07:49 Test Item Value Reference Range Interpretation [...] S NOT APPLICABLE FOR DIALYSIS PATIEN TS. Wet Pan Mixer ID - GISELL [id number] 05:07:49 Test Item Value Reference Range Interpretation Comments MAGNESIUM (BEAKER) (test code = 2.2 mg/dL 1.6-2.6 627) Wet Pan Mixer ID - GISELL MCBC W/PLT COUNT & AUTO [id number] 04:44:58 Test Item Value Reference Range Interpretation [...] PERCENT (BEAKER) (test code = 2801) PROTHROMBIN TIME/[id number] 00:46:16 Test Item Value Reference Range Interpretation Comments PROTIME (BEAKER) 14.4 seconds 11.9-14.2 H (test code = 759) INR (BEAKER) (test 1.14 See_Comment [Automat ed message] code = 370) The system Mesh[employer] generated this result transmitted ref erence range: <=5.90. The reference range was not used to int erpret this result as normal/abnormal . RECOMMENDED COUMADIN/WARFARIN INR THERAPY RANGESSTANDARD DOSE: 2.0 - 3.0 Includes: PROPHYLAXIS forvenous thrombosis, systemic embolization; TREATMENT for venous thrombosis and/or pulmonary embolus.HIGH RISK: Target INR is 2.5-3.5 for patients with mechanical heart valves.SARS-COV2/RT-PCR ([facility]) 2021-08-14 00:26:40 Test Item Value Reference Range Interpretation Comments SARS-COV2/RT-PCR Negative Negative The SARS-Co V-2 target (test code = nucleic acids a re not 8432933) detected in thi s specimen. Negative result [...] revoked sooner. Fact Sheet for Healthcare Providers: https://www.Shoplocal/Documents/Xpert%20Xpress%20SARS%20CoV-2/Fact%20Sheets/3023802%20SARS-COV -2%20HEALTHCARE%20PROVIDERS%20FACT%20SHEET.pdf Fact Sheet for Healthcare Patients: https://www.Enohm/Documents/Xpert %20Xpress%20SARS%20CoV-2/Fact%20Sheets/3023801%31WTBF-HJI-1%20PATIENT%20FACT%20 SHEET.pdfRAD, CHEST, 1 VIEW, NON [id number] 00:12:00Reason for exam:- >CPShould this be performed at the bedside?->Yes [facility] 1960 Sex: MFINAL REPORT History: Chest [...] MDReportVerified Date/Time: 08/14/2021 00:12:28 HIGH SENSITIVITY TROPONIN [id number] 23:42:44 Test Item Value Reference Range Interpretation Comments HIGH SENSITIVITY 38 pg/ml See_Comment H [Automated message] TROPONIN I (test code = The system which 4851338) generated this result transmitted ref erence range: <=35. Th e reference range was not used to int erpret this result as normal/abnormal . 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 Wet Pan Mixer ID - BSCBC W/PLT COUNT & AUTO [id number] 23:13:22 Test Item Value Reference Range Interpretation [...] Interpretation Comments POCT GLU (test code = 8984731126) 99 mg/dL 70-110 Lab Interpretation (test code = Normal 71739-8) [facility] 12:40:16 Test Item Value Reference Range Interpretation Comments MAGNESIUM (test code = 0433503240) 2.3 mg/dL 1.7-2.4 Lab Interpretation (test code = Normal 99297-4) [facility] [id number] 12:40:15 Test Item Value Reference Range Interpretation Comments ALBUMIN (test code = 3.6 g/dL 3.5-5.0 8887029385) CALCIUM (test code = 8.9 mg/dL 8.6-10.6 2632018476) CO2 TOTAL (test code = 23 mmol/L 23-31 7169237196) CREATININE (test code = 1.36 mg/dL 0.60-1.25 H 5321943099) GLUCOSE (test code = 87 mg/dL 70-110 8166190822) K (test code = 4.2 mmol/L 3.5-5.0 9962779151) NA (test code = 135 mmol/L 135-145 5711599353) BUN (test code = 34 mg/dL 7-23 H 2129997531) PHOSPHORUS (test code = 3.9 mg/dL 2.5-5.0 9104062890) eGFR (test code = mL/min/1.73m2 5615960914) ALYSIA (test code = ALYSIA) Association of [...] tests). Lab Interpretation Abnormal (test code = 36903-8) [facility]LECT[facility]TES PANEL (05747)(NA, K, CL, CO2) 2021-06-21 12:39:35 Test Item Value Reference Range Interpretation Comments NA (test code = 3567937796) 135 mmol/L 135-145 K (test code = 4875135262) 4.2 mmol/L 3.5-5.0 CL (test code = 9198242977) 107 mmol/L 98-108 CO2 TOTAL (test code = 3346901011) 23 mmol/L 23-31 AGAP (test code = 1140016171) 2-16 Lab Interpretation (test code = Normal 83396-1) [facility] PAN[facility] (40311)(NA, K, CL, CO2) 2021-06-21 02:05:41 Test Item Value Reference Range Interpretation Comments NA (test code = 4601593728) 130 mmol/L 135-145 L K (test code = 9857229196) 4.2 mmol/L 3.5-5.0 CL (test code = 9436300141) 99 mmol/L 98-108 CO2 TOTAL (test code = 5997992990) 23 mmol/L 23-31 AGAP (test code = 3577630791) 2-16 Lab Interpretation (test code = Abnormal 38513-6) [facility] GLUCOSE (AUTOMATED)2021-06-21 01:32:17 Test Item Value Reference Range Interpretation Comments POCT GLU (test code = 8759571432) 163 mg/dL 70-110 H Lab Interpretation (test code = Abnormal 95566-3) [facility] GLUCOSE (AUTOMATED)2021-06-21 01:32:11 Test Item Value Reference Range Interpretation Comments POCT GLU (test code = 7565379796) 111 mg/dL 70-110 H Lab Interpretation (test code = Abnormal 16237-7) [facility] HospitalDIFF CONSULT [id number] 19:50:07 ABSOLUTE LYMPHOPENIA. NORMOCYTIC NORMOCHROMIC ANEMIA. PLATELETS ARE UNREMARKABLE.[facility] HospitalVITAMIN B12, [id number] 19:49:05 Test Item Value Reference Range Interpretation Comments VIT B12 (test code = 687 pg/mL 240-930 6822270971) ALYSIA (test code = ALYSIA) Biotin has been reported to cause a positive bias, interpret results relative to patient's use of biotin. Lab Interpretation (test Normal code = 20817-7) [facility]VIT[facility]IN D, [id number] 19:16:59 Test Item Value Reference Range Interpretation Comments VIT D 25OH (test code = 17 ng/mL 25-80 L 74418-8) ALYSIA (test code = ALYSIA) Deficiency: <20 ng/mLInsufficiency: 20-24 ng/mLOptimal: 25-80 ng/mL Lab Interpretation (test Abnormal code = 96046-3) [facility]ELECT[facility] PANEL (84327)(NA, K, CL, CO2) 2021-06-20 18:30:32 Test Item Value Reference Range Interpretation Comments NA (test code = 1911614697) 127 mmol/L 135-145 L K (test code = 8227120939) 4.4 mmol/L 3.5-5.0 CL (test code = 4416883544) 97 mmol/L 98-108 L CO2 TOTAL (test code = 9670403157) 20 mmol/L 23-31 L AGAP (test code = 4647892608) 2-16 Lab Interpretation (test code = Abnormal 18751-2) [facility]PO[facility] ([facility])2021-06-20 18:02:33 Test Item Value Reference Range Interpretation Comments POCT GLU (test code = 6025935144) 118 mg/dL 70-110 H Lab Interpretation (test code = Abnormal 68427-8) [facility]PO[facility] ([facility])2021-06-20 18:02:33 Test Item Value Reference Range Interpretation Comments POCT GLU (test code = 4463856166) 181 mg/dL 70-110 H Lab Interpretation (test code = Abnormal 04715-8) [facility] HospitalFOLATE2021-10-08 16:36:31 Test Item Value Reference Range Interpretation Comments FOLATE SER (test code = >20.0 3.0-20.0 H Biot in has been 9169678231) reported to cau se a positive bias, interpret resul ts relative to patient's use o f biotin. Lab Interpretation (test Abnormal code = 73716-5) [facility] BranchRENAL [id number] 12:37:06 Test Item Value Reference Range Interpretation Comments ALBUMIN (test code = 3.8 g/dL 3.5-5.0 6537445370) CALCIUM (test code = 8.7 mg/dL 8.6-10.6 5162746675) CO2 TOTAL (test code = 20 mmol/L 23-31 L 0018622880) CREATININE (test code = 1.64 mg/dL 0.60-1.25 H 3070296308) GLUCOSE (test code = 82 mg/dL 70-110 2858817644) K (test code = 4.1 mmol/L 3.5-5.0 7856594349) NA (test code = 126 mmol/L 135-145 L 1521561700) BUN (test code = 43 mg/dL 7-23 H 5892377960) PHOSPHORUS (test code = 4.2 mg/dL 2.5-5.0 2565470759) eGFR (test code = mL/min/1.73m2 6565533575) ALYSIA (test code = ALYSIA) Association of [...] tests). Lab Interpretation Abnormal (test code = 72673-2) [facility]2021-10-08 12:37:06 Test Item Value Reference Range Interpretation Comments MAGNESIUM (test code = 1000612980) 2.3 mg/dL 1.7-2.4 Lab Interpretation (test code = Normal 71425-1) [facility] GLUCOSE (AUTOMATED)2021-06-20 12:01:50 Test Item Value Reference Range Interpretation Comments POCT GLU (test code = 0325843084) 114 mg/dL 70-110 H Lab Interpretation (test code = Abnormal 53519-7) [facility] GLUCOSE (AUTOMATED)2021-06-20 04:48:58 Test Item Value Reference Range Interpretation Comments POCT GLU (test code = 4092562737) 137 mg/dL 70-110 H Lab Interpretation (test code = Abnormal 18768-4) [facility]ELECT[facility]OL[facility]TES PANEL (97898)(NA, K, CL, CO2) 2021-06-20 04:41:11 Test Item Value Reference Range Interpretation Comments NA (test code = 7593335942) 122 mmol/L 135-145 L K (test code = 1986068198) 4.0 mmol/L 3.5-5.0 CL (test code = 1498748782) 94 mmol/L 98-108 L CO2 TOTAL (test code = 1446901557) 20 mmol/L 23-31 L AGAP (test code = 0606039068) 2-16 Lab Interpretation (test code = Abnormal 68139-1) [facility] GLUCOSE (AUTOMATED)2021-06-20 02:04:20 Test Item Value Reference Range Interpretation Comments POCT GLU (test code = 3656940221) 166 mg/dL 70-110 H Lab Interpretation (test code = Abnormal 13217-9) [facility]ELECT[facility]TES PANEL (78233)(NA, K, CL, CO2) 2021-06-19 22:21:27 Test Item Value Reference Range Interpretation Comments NA (test code = 2288851751) 120 mmol/L 135-145 L K (test code = 6498611969) 4.3 mmol/L 3.5-5.0 CL (test code = 4939774148) 90 mmol/L 98-108 L CO2 TOTAL (test code = 6234945711) 22 mmol/L 23-31 L AGAP (test code = 4587825783) 2-16 Lab Interpretation (test code = Abnormal 90050-3) [facility] HospitalOSMOLALITY, SERUM OR [id number] 20:32:51 Test Item Value Reference Range Interpretation Comments OSMOLALITY (test code = See_Comment L [Au tomated message] 6126984613) The system Meshify generated this result transmitted ref erence range: 278 - 30 5 mOsm/kg. The reference range was not used to int erpret this result as normal/abnormal . Lab Interpretation (test Abnormal code = 21873-2) [facility] HospitalRETICULOCYTES [id number] 18:52:41 Test Item Value Reference Range Interpretation Comments RETIC Count Automated 4.16 % 0.59-2.24 H (test code = 2215424485) RETIC Absolute Count See_Comment H [Autom ated message] (test code = 9217164110) The system which generated this result transmitted ref erence range: 0.0260 - 0.1170 10*6/?L. The reference range was not used to int erpret this result as normal/abnormal . IRF % (test code = 24.00 % 2.00-19.10 H 3484359928) RETIC-HE (test code = 35.8 pg 27.3-36.4 4343426765) Lab Interpretation (test Abnormal code = 10635-2) [facility] HospitalFERRITIN [id number] 18:12:11 Test Item Value Reference Range Interpretation Comments FERRITIN (test code = 245.0 ng/mL 18.0-464.0 3388568484) ALYSIA (test code = ALYSIA) Biotin has been reported to cause a negative bias, interpret results relative to patient's use of biotin. Lab Interpretation (test Normal code = 94811-6) [facility] HospitalTHYROID STIMULATING [id number] 18:07:51 Test Item Value Reference Range Interpretation Comments TSH (test code = See_Comment [Automated message] 4943262233) The system Mesh[employer] generated this result transmitted ref erence range: 0.45 - 4 .70 mIU/L. The refe rence range was not u sed to interpret this result as normal/abnor mal. Lab Interpretation (test Normal code = 08512-8) [facility] HospitalIRON [id number] 17:46:47 Test Item Value Reference Range Interpretation Comments IRON (test code = 2138211588) 38 ug/dL 50-160 L TIBC (test code = 4124615013) 320 ug/dL 250-410 % FE SAT (test code = 2690270815) 12 % 20-50 L Lab Interpretation (test code = Abnormal 26567-0) [facility] HospitalCREATINE [id number] 17:37:28 Test Item Value Reference Range Interpretation Comments CK (test code = 3528592265) 204 U/L 33-194 H Lab Interpretation (test code = Abnormal 14023-6) [facility] HospitalGlycosylated Hemoglobin (A1C)2021-06-19 15:28:01 Test Item Value Reference Range Interpretation Comments HGB A1C (test code = 5.5 % 4.0-5.7 4548-4) ALYSIA (test code = ALYSIA) Reference RangesNormal: <5.7%Prediabetes: 5.7 - 6.4%Diabetes: > 6.5% Lab Interpretation (test Normal code = 52965-6) [facility] HospitalTROPONIN [id number] 15:23:11 Test Item Value Reference Interpretation Comments Range TROPONIN I (test 0.006 ng/mL See_Comment [Automated code = 1264432778) message] The system which generated this result [...] biotin. Lab Interpretation Normal (test code = 01057-2) [facility] HospitalN-TERMINAL [id number] 15:19:46 Test Item Value Reference Range Interpretation Comments NT-proBNP (test code 610 pg/mL See_Comment H [Autom ated = 6107928591) message] The system which generated this result transmitted reference range : <=125. The reference range was not used to interpret this result as normal/abnormal . ALYSIA (test code = ALYSIA) Biotin has been reported to cause a negative bias, interpret results relative to patient's use of biotin. Lab Interpretation Abnormal (test code = 39395-9) [facility] HospitalMAGNESIUM2021-10-07 15:12:30 Test Item Value Reference Range Interpretation Comments MAGNESIUM (test code = 4181104591) 2.2 mg/dL 1.7-2.4 Lab Interpretation (test code = Normal 96172-3) [facility] HospitalCOMP. METABOLIC PANEL (99566)2021-06-19 15:12:25 Test Item Value Reference Range Interpretation Comments NA (test code = 120 mmol/L 135-145 L 3921530099) K (test code = 4.3 mmol/L 3.5-5.0 3160904308) CL (test code = 87 mmol/L 98-108 L 6018691776) CO2 TOTAL (test code = 22 mmol/L 23-31 L 4196067804) AGAP (test code = 2-16 7386024762) BUN (test code = 47 mg/dL 7-23 H 3117535648) GLUCOSE (test code = 110 mg/dL 70-110 4010146366) CREATININE (test code = 1.74 mg/dL 0.60-1.25 H 6333391649) TOTAL BILI (test code = 0.6 mg/dL 0.1-1.7 8544061181) CALCIUM (test code = 9.3 mg/dL 8.6-10.6 9513685885) T PROTEIN (test code = 7.2 g/dL 6.3-8.2 7501996653) ALBUMIN (test code = 4.6 g/dL 3.5-5.0 9263831903) ALK PHOS (test code = 99 U/L 34-122 4850121831) ALTv (test code = 48 U/L 5-50 1742-6) AST(SGOT) (test code = 39 U/L 13-40 7142559549) eGFR (test code = mL/min/1.73m2 9416410944) ALYSIA (test code = ALYSIA) Association of [...] tests). Lab Interpretation Abnormal (test code = 27082-5) [facility] HospitalPHOSPHORUS2021-10-07 15:12:04 Test Item Value Reference Range Interpretation Comments PHOSPHORUS (test code = 6883133848) 4.4 mg/dL 2.5-5.0 Lab Interpretation (test code = Normal 57092-9) [facility] HospitalURIC [id number] 15:12:04 Test Item Value Reference Range Interpretation Comments URIC ACID (test code = 6235226965) 9.8 mg/dL 3.6-8.0 H Lab Interpretation (test code = Abnormal 63926-6) [facility] WITH [id number] 14:38:02 Test Item Value Reference Range Interpretation [...] RDW-SD (test code = 38.5 fL 38.5-51.6 04775-1) RDW-CV (test code = 12.1 % 12.1-15.4 788-0) PLT (test code = See_Comment [Automated 777-3) message] The sy stem which generated this result transmitted reference range : 150 - 328 10*3/ ?L. The reference r kathe was not used to interpret this result as normal/abnormal . MPV (test code = 10.0 fL 9.8-13.0 66750-8) NRBC/100 WBC (test See_Comment [Automat ed code = 6487718590) message] The system which generated this result transmitted reference range : 0.0 - 10.0 /100 WBCs. The refer ence range was not u sed to interpret th is result as normal/abnormal . NRBC x10^3 (test code <0.01 See_Comment [Auto mated = 3767714740) message] The s ystem which generated this result transmitted reference range : 10*3/?L. The reference range was not used to interpret this result as normal/abnormal . GRAN MAT (NEUT) % 71.7 % (test code = 770-8) IMM GRAN % (test code 0.60 % = 0995938638) LYMPH % (test code = 12.4 % 736-9) MONO % (test code = 12.1 % 5905-5) EOS % (test code = 2.7 % 713-8) BASO % (test code = 0.5 % 706-2) GRAN MAT x10^3(ANC) 4.44 10*3/uL 1.99-6.95 (test code = 9136206160) IMM GRAN x10^3 (test 0.04 10*3/uL 0.00-0.06 code = 8008537818) LYMPH x10^3 (test code 0.77 10*3/uL 1.09-3.23 L = 731-0) MONO x10^3 (test code 0.75 10*3/uL 0.36-1.02 = 742-7) EOS x10^3 (test code = 0.17 10*3/uL 0.06-0.53 711-2) BASO x10^3 (test code 0.03 10*3/uL 0.01-0.09 = 704-7) Lab Interpretation Abnormal (test code = 48512-2) [facility] [id number] 11:32:00Surgical Pathology Report Case: [id number] Authorizing Provider: Abran Berrios MD Collected: 02/03/2017 0845 Ordering Location: [facility] Diagnostic Imaging Received: 02/03/2017 0915 Pathologist: [...] diabetic nephropathy. J Am Soc Nephrol 21:556-563, 2009.93392, 64315 x3, 05570, 74111 x7, 09565Plotdavcoxq, DM and serum creatinine 1.3 to 1.4Left [...] or vascular staining. Fibrinogen: diffuse, glomerular and tubulointerstitial,weak.[place]: negative glomeruli; rare small tubular casts are [...] segmentally effaced. Tubular basement membranes are thickened.POCT-GLUCOSE [id number] 09:15:00 Test Item Value Reference Range Interpretation Comments POC-GLUCOSE METER 140 mg/dL 70-110 H TESTED AT [address] ([facility]) (test code [address] [facility] [place] = 1538) [address] PT/[id number] 07:43:00 Test Item Value Reference Range Interpretation Comments PROTIME ([facility]) (test code = 10.2 seconds 9.3-12.0 759) INR ([facility]) (test code = 370) 1.0 <=5.9 PARTIAL THROMBOPLASTIN TIME 25.9 seconds 23.0-35.0 ([facility]) (test code = 760) RECOMMENDED COUMADIN/WARFARIN INR THERAPY RANGESSTANDARD DOSE: 2.0 - 3.0 Includes: PROPHYLAXIS forvenous thrombosis, systemic embolization; TREATMENT for venous thrombosis and/or pulmonary embolus.HIGH RISK: Target INR is 2.5-3.5 for patients with mechanical heart valves.CBC W/PLT COUNT & AUTO DIFFERENTIAL 2017-02-03 07:39:00 Test Item Value Reference Range Interpretation Comments WHITE BLOOD CELL COUNT (BEAKER) 6.2 K/ L 4.0-10.0 (test code = [...] L 0.00-0.20 (test code = 417) POCT-GLUCOSE [id number] 07:26:00 Test Item Value Reference Range Interpretation Comments POC-GLUCOSE METER 136 mg/dL 70-110 H TESTED AT [address]) (test code [address] [facility] [place] = 1538) [address]"
[2022-03-09 20:41] LABS: Absolute Lymphocytes (CBC) 0.9 K/uL (0.7-4.9); Hematocrit 23.4 % (39.6-49.0); MPV 7.2 fL (7.6-11.3); RBC Red Blood Cell Count 2.51 M/uL (4.33-5.43)
[2022-03-09 20:50] LABS: Potassium 3.8 mmol/L (3.5-5.1); Troponin High Sensitivity 17.3 pg/mL (<58.9)
[2022-03-09] MEDS ORDERED: ACETAMINOPHEN 500 MG TAB ONE (20:58)
--- NOTE | 2022-03-09 21:21 | RAD REPORT ---
EXAM DESCRIPTION: RAD - Chest Single View - 03/09/2022 8:43 pm CLINICAL HISTORY: Chest pain COMPARISON: Portable 11/14/2021 TECHNIQUE: AP portable chest image was obtained 03/09/2022 8:43 pm . FINDINGS: Lungs are clear. Interstitial pattern matches comparison. Heart and vasculature are normal . No measurable pleural effusion and no pneumothorax. No acute bony abnormality seen. No acute aortic findings suspected. IMPRESSION: No acute cardiopulmonary process. No significant change from comparison study.
--- NOTE | 2022-03-09 23:51 | EDPHYS ---
Physician Documentation [facility] Name: Ivan Parra Age: 61 yrs Sex: Male : 1960 Arrival Date: 03/09/2022 Time: 19:34 Bed 6 Private MD: ED Physician Jacek Ward HPI: 03/09 20:34 This 61 yrs old Male presents to ER via Ambulatory with complaints of Chest kdr Pain, Shortness Of Breath. 20:34 The patient or guardian reports chest pain that is located primarily in the substernal kdr area, epigastric area. Onset: gradually, 4 day(s) ago. The pain does not radiate. Associated signs and symptoms: Pertinent positives: nausea, shortness of breath, Pertinent negatives: diaphoresis. The chest pain is described as aching, dull, a pressure. Duration: The patient or guardian reports multiple episodes, that are intermittent, that wax and wane, with no pattern. Modifying factors: The symptoms are alleviated by nothing. the symptoms are aggravated by exertion. Severity of pain: At its worst the pain was mild in the emergency department the pain is unchanged. The patient has not experienced similar symptoms in the past. Historical: - Allergies: 20:07 No Known Allergies; as6 - Home Meds: 20:07 icosapent ethyl 1 gram oral cap [Active]; amlodipine 10 mg tab [Active]; rosuvastatin as6 40 mg oral cpSP [Active]; ferrous sulfate 325 mg (65 mg iron) Oral cpER [Active]; aspirin 81 mg Oral cpDR [Active]; febuxostat 40 mg oral tab [Active]; carvedilol 6.25 mg oral tab 1 tab 2 times per day [Active]; clopidogrel 75 mg oral tab [Active]; Veltassa 16.8 gram oral pwpk [Active]; isosorbide dinitrate 20 mg Oral tab [Active]; furosemide 20 mg Oral tab [Active]; - PMHx: 20:07 angina pectoris; diabetes mellitus; Hypertensive disorder; kidney disease; Myocardial as6 infarction; - PSHx: 20:07 cardiac stents; as6 - Immunization history:: Client reports receiving the 2nd dose of the Covid vaccine, [employer]. - Social history:: Smoking status: Patient denies any tobacco usage or history of. ROS: 20:34 Constitutional: Negative for fever, chills, and weight loss, Eyes: Negative for injury, kdr pain, redness, and discharge, Neck: Negative for injury, pain, and swelling, Respiratory: Negative for shortness of breath, cough, wheezing, and pleuritic chest pain, Abdomen/GI: Negative for abdominal pain, nausea, vomiting, diarrhea, and constipation, Back: Negative for injury and pain, : Negative for injury, bleeding, discharge, and swelling, MS/Extremity: Negative for injury and deformity, Skin: Negative for injury, rash, and discoloration, Neuro: Negative for headache, weakness, numbness, tingling, and seizure activity. Psych: Negative for depression, anxiety, suicide ideation, homicidal ideation, and hallucinations, Allergy/Immunology: Negative for hives, rash, and allergies, Endocrine: Negative for neck swelling, polydipsia, polyuria, polyphagia, and marked weight changes, Hematologic/Lymphatic: Negative for swollen nodes, abnormal bleeding, and unusual bruising. 20:34 Cardiovascular: Positive for chest pain, Negative for edema, orthopnea, palpitations. Exam: 20:34 Constitutional: This is a well developed, well nourished patient who is awake, alert, kdr and in no acute distress. Head/Face: Normocephalic, atraumatic. Eyes: Pupils equal round and reactive to light, extra-ocular motions intact. Lids and lashes normal. Conjunctiva and sclera are non-icteric and not injected. Cornea within normal limits. Periorbital areas with no swelling, redness, or edema. Neck: Trachea midline, no thyromegaly or masses palpated, and no cervical lymphadenopathy. Supple, full range of motion without nuchal rigidity, or vertebral point tenderness. No Meningismus. Chest/axilla: Normal chest wall appearance and motion. Nontender with no deformity. No lesions are appreciated. Cardiovascular: Regular rate and rhythm with a normal S1 and S2. No gallops, murmurs, or rubs. Normal PMI, no JVD. No pulse deficits. Respiratory: Lungs have equal breath sounds bilaterally, clear to auscultation and percussion. No rales, rhonchi or wheezes noted. No increased work of breathing, no retractions or nasal flaring. Abdomen/GI: Soft, non-tender, with normal bowel sounds. No distension or tympany. No guarding or rebound. No evidence of tenderness throughout. Back: No spinal tenderness. No costovertebral tenderness. Full range of motion. Skin: Warm, dry with normal turgor. Normal color with no rashes, no lesions, and no evidence of cellulitis. MS/ Extremity: Pulses equal, no cyanosis. Neurovascular intact. Full, normal range of motion. Neuro: Awake and alert, GCS 15, oriented to person, place, time, and situation. Cranial nerves II-XII grossly intact. Motor strength 5/5 in all extremities. Sensory grossly intact. Cerebellar exam normal. Normal gait. Psych: Awake, alert, with orientation to person, place and time. Behavior, mood, and affect are within normal limits. 20:34 ECG was reviewed by the Attending Physician. kdr Vital Signs: 19:59 BP 148 / 74; Pulse 82; Resp 13 S; Temp 98.0(O); Pulse Ox 99% on R/A; Weight 72.57 kg as6 (R); Height 5 ft. 8 in. (172.72 cm) (R); Pain 2/10; 21:00 BP 152 / 76; Pulse 79; Resp 13 S; Pulse Ox 100% on R/A; as6 21:57 BP 147 / 70; Pulse 73; Resp 15 S; Pulse Ox 97% on R/A; as6 23:00 BP 142 / 71; Pulse 78; Resp 19 S; Pulse Ox 99% on R/A; as6 23:51 BP 150 / 76; Pulse 77; Resp 13 S; Pulse Ox 99% on R/A; as6 19:59 Body Mass Index 24.33 (72.57 kg, 172.72 cm) as6 MDM: 23:50 Patient medically screened. kdr 23:53 Data reviewed: vital signs, nurses notes, lab test result(s), radiologic studies. kdr Counseling: I had a detailed discussion with the patient and/or guardian regarding: the historical points, exam findings, and any diagnostic results supporting the discharge/admit diagnosis, lab results, radiology results, the need for outpatient follow up. 03/09 19:48 Order name: Basic Metabolic Panel; Complete Time: 21:01 kdr 03/09 19:48 Order name: CBC with Diff; Complete Time: 21:01 kdr 03/09 19:48 Order name: Troponin HS; Complete Time: 21:01 [facility] 03/09 19:48 Order name: XRAY Chest (1 view); Complete Time: 21:49 [facility] 03/09 21:02 Order name: Troponin High Sensitivity: 2 hours after initial draw; Complete Time: 23:38 [facility] 03/09 19:48 Order name: EKG; Complete Time: 19:48 [facility] 03/09 19:48 Order name: Cardiac monitoring; Complete Time: 20:15 [facility] 03/09 19:48 Order name: EKG - Nurse/Tech; Complete Time: 20:38 [facility] 03/09 19:48 Order name: IV Saline Lock; Complete Time: 20:15 [facility] 03/09 19:48 Order name: Labs collected and sent; Complete Time: 20:15 [facility] 03/09 19:48 Order name: O2 Per Protocol; Complete Time: 20:15 [facility] 03/09 19:48 Order name: O2 Sat Monitoring; Complete Time: 20:15 [facility] EC:34 Rate is 80 beats/min. Rhythm is regular, Sinus Rhythm with No ectopy. QRS [place] is kdr Normal. NV interval is normal. QRS interval is normal. QT interval is normal. Clinical impression: NSR w/ Non-specific ST/T Changes. Administered Medications: 20:57 Drug: Tylenol 1000 mg Route: PO; as6 23:50 Follow up: Response: No adverse reaction as6 03/10 00:05 Drug: Pepcid (famotidine) 20 mg Route: PO; aa9 00:12 Follow up: Response: No adverse reaction aa9 Disposition Summary: 03/09/22 23:50 Discharge Ordered Location: Home kdr Problem: an ongoing problem kdr Symptoms: have improved kdr Condition: Stable kdr Diagnosis - Epigastric pain kdr - Chest pain, unspecified kdr Followup: kdr - With: Private Physician - When: 2 - 3 days - Reason: If symptoms return, Further diagnostic work-up, Recheck today's complaints, Continuance of care, Re-evaluation by your physician Discharge Instructions: - Discharge Summary Sheet kdr - Abdominal Pain, Adult kdr - Nonspecific Chest Pain, Adult kdr Forms: - Medication Reconciliation Form kdr - Thank You Letter kdr Prescriptions: - Pepcid 20 mg Oral Tablet - take 1 tablet by ORAL route once daily; 20 tablet; Refills: 0, Product kdr Selection Permitted Signatures: Dispatcher [employer] Jacek Gibbons MD MD kdr Jerome De La O, RN RN as6 Pushpa Ferreira, RN RN aa9
--- NOTE | 2022-03-09 23:51 | ER ---
Nurse's Notes [facility] [place], [place] Name: Ivan Parra Age: 61 yrs Sex: Male : 1960 Arrival Date: 03/09/2022 Time: 19:34 Bed 6 Private MD: Diagnosis: Epigastric pain;Chest pain, unspecified Presentation: 03/09 19:59 Chief complaint: Patient states: "For the past several days I have been feeling really as6 weak and my blood pressure has be getting higher and my chest hurts". Coronavirus screen: At this time, the client does not indicate any symptoms associated with coronavirus-19. Ebola Screen: No symptoms or risks identified at this time. Initial Sepsis Screen: Does the patient meet any 2 criteria? No. Patient's initial sepsis screen is negative. Does the patient have a suspected source of infection? No. Patient's initial sepsis screen is negative. Risk Assessment: Do you want to hurt yourself or someone else? Patient reports no desire to harm self or others. Onset of symptoms is unknown. Care prior to arrival: Medication(s) given: Nitroglycerin, x 1. 19:59 Method Of Arrival: Ambulatory as6 19:59 Acuity: KERWIN 3 as6 Historical: - Allergies: 20:07 No Known Allergies; as6 - Home Meds: 20:07 icosapent ethyl 1 gram oral cap [Active]; amlodipine 10 mg tab [Active]; rosuvastatin as6 40 mg oral cpSP [Active]; ferrous sulfate 325 mg (65 mg iron) Oral cpER [Active]; aspirin 81 mg Oral cpDR [Active]; febuxostat 40 mg oral tab [Active]; carvedilol 6.25 mg oral tab 1 tab 2 times per day [Active]; clopidogrel 75 mg oral tab [Active]; Veltassa 16.8 gram oral pwpk [Active]; isosorbide dinitrate 20 mg Oral tab [Active]; furosemide 20 mg Oral tab [Active]; - PMHx: 20:07 angina pectoris; diabetes mellitus; Hypertensive disorder; kidney disease; Myocardial as6 infarction; - PSHx: 20:07 cardiac stents; as6 - Immunization history:: Client reports receiving the 2nd dose of the Covid vaccine, [employer]. - Social history:: Smoking status: Patient denies any tobacco usage or history of. Screenin:59 Abuse screen: Denies threats or abuse. Denies injuries from another. Nutritional as6 screening: No deficits noted. Tuberculosis screening: No symptoms or risk factors identified. Fall Risk None identified. Assessment: 20:00 General: Appears in no apparent distress. Behavior is cooperative, anxious. Pain: as6 Complains of pain in chest Pain does not radiate. Pain began gradually, 2-3 days ago. Neuro: Level of Consciousness is awake, alert, obeys commands, Reports weakness. Cardiovascular: Reports chest pain, shortness of breath, Patient's skin is warm and dry. Respiratory: Reports shortness of breath Respiratory effort is even, unlabored. 22:01 Reassessment: Patient appears in no apparent distress at this time. Patient is alert, as6 oriented x 3, equal unlabored respirations, skin warm/dry/pink. Vital Signs: 19:59 BP 148 / 74; Pulse 82; Resp 13 S; Temp 98.0(O); Pulse Ox 99% on R/A; Weight 72.57 kg as6 (R); Height 5 ft. 8 in. (172.72 cm) (R); Pain 2/10; 21:00 BP 152 / 76; Pulse 79; Resp 13 S; Pulse Ox 100% on R/A; as6 21:57 BP 147 / 70; Pulse 73; Resp 15 S; Pulse Ox 97% on R/A; as6 23:00 BP 142 / 71; Pulse 78; Resp 19 S; Pulse Ox 99% on R/A; as6 23:51 BP 150 / 76; Pulse 77; Resp 13 S; Pulse Ox 99% on R/A; as6 19:59 Body Mass Index 24.33 (72.57 kg, 172.72 cm) as6 ED Course: 19:34 Patient arrived in ED. ja2 19:40 Jacek Ward MD is Attending Physician. kdr 19:58 Jerome De La O, TANNER is Primary Nurse. as6 20:07 Triage completed. as6 20:14 Arm band placed on. as6 20:14 Inserted saline lock: 18 gauge in right forearm, using aseptic technique. Blood as6 collected. Patient maintains SpO2 saturation greater than 95% on room air. 20:45 XRAY Chest (1 view) In Process Unspecified. EDMS 21:59 Placed in gown. Bed in low position. Call light in reach. Side rails up X2. Adult w/ as6 patient. Client placed on continuous cardiac and pulse oximetry monitoring. NIBP monitoring applied. Warm blanket given. 22:17 Diet tray given. as03/10 00:13 No provider procedures requiring assistance completed. IV discontinued, intact, aa9 bleeding controlled, No redness/swelling at site. Pressure dressing applied. Administered Medications: 03/09 20:57 Drug: Tylenol 1000 mg Route: PO; as6 23:50 Follow up: Response: No adverse reaction as6 03/10 00:05 Drug: Pepcid (famotidine) 20 mg Route: PO; aa9 00:12 Follow up: Response: No adverse reaction aa9 Medication: 00:15 VIS not applicable for this client. aa9 Outcome: 03/09 23:50 Discharge ordered by . kdr 03/10 00:13 Discharged to home ambulatory, with significant other. aa9 Condition: stable Discharge instructions given to patient, significant other, Instructed on discharge instructions, follow up and referral plans. medication usage, Demonstrated understanding of instructions, follow-up care, medications, Prescriptions given X 1. 00:15 Patient left the ED. aa9 Signatures: Dispatcher [employer] EDMS Jacek Ward MD MD kdr Alexander, Jessica ja2 Slawson, Ashby, TANNER RN as6 Pushpa Ferreira RN RN aa9
[2022-03-10] MEDS ORDERED: FAMOTIDINE 20 MG TAB ONE (00:05)
[2022-03-10 00:34] VITALS: TEMP 98
[2022-03-10 00:38] VITALS: O2SAT 99
[2022-03-10 00:39] VITALS: BP 150/76
--- NOTE | 2022-03-10 08:53 | EKG ---
Test Date: 2022-03-09 Test Time: 20:33:43 Licensed Physical Therapy Assistant: TIM MEASUREMENT RESULTS: Intervals: Rate: 80 ND: 180 QRSD: 88 QT: 408 QTc: 470 [place]: P: 58 ND: 180 QRS: 80 T: 79 INTERPRETIVE STATEMENTS: Normal sinus rhythm Minimal voltage criteria for LVH, may be normal variant Borderline ECG Compared to ECG 11/14/2021 10:37:26 Left ventricular hypertrophy now present Myocardial infarct finding no longer present Electronically Signed On 03-10-22 08:52:10 CDT by Cm Schroeder
== END 2022-03-10 00:15 | disposition home or self-care (01) ==
LOC: ER 19:31
DX: R07.9 Chest pain, unspecified (principal); R10.13 Epigastric pain; E11.9 Type 2 diabetes mellitus without complications; I10 Essential (primary) hypertension; I25.2 Old myocardial infarction; Z79.82 Long term (current) use of aspirin; Z95.818 Presence of other cardiac implants and grafts
CPT/HCPCS: 36415; 71045; 80048; 84484; 85025; 93005

== ENCOUNTER → 2022-11-05 | Day surgery (SDC) | payer BC ==
[~2022-11-05] MED LIST: EPOETIN ALFA-EPBX 10,000 UNIT/ML VIAL ONE; SOD FERRIC GLUC COMPLX/SUCROSE 250 MG in NA CHLORIDE 0.9% 250 ML IV ONE
[2022-11-05 10:51] VITALS: BP 125/61; TEMP 97.6; O2SAT 99; BMI 25.0
== END ==
LOC: DS 08:14
PROVIDERS: ATTEND Family Medicine
DX: N18.4 Chronic kidney disease, stage 4 (severe) (principal); D63.1 Anemia in chronic kidney disease
CPT/HCPCS: 96365; 96372; 96366; J2916; Q5106; J7050

== ENCOUNTER 2022-11-09 08:57 | Day surgery (SDC) | payer BC ==
[2022-11-09] MEDS ORDERED: SOD FERRIC GLUC COMPLX/SUCROSE 250 MG in NA CHLORIDE 0.9% 250 ML IV ONE (09:30)
[2022-11-09 12:26] VITALS: BP 132/63; TEMP 98.1; O2SAT 99; BMI 25.0
== END 2022-11-09 11:42 | disposition home or self-care (01) ==
LOC: DS 08:57
PROVIDERS: ATTEND Family Medicine
DX: N18.4 Chronic kidney disease, stage 4 (severe) (principal); D63.1 Anemia in chronic kidney disease
CPT/HCPCS: 96365; 96366; J2916; J7050

== ENCOUNTER 2023-03-11 14:20 | Observation (INO) | payer BC ==
--- OUTSIDE RECORDS SUMMARY | 2023-03-11 14:27 | XMS REPORT | Continuity of Care Document ---
:1960 Author Organization [facility] t Address [address] [place] [address]. [address] [place] [address] Care Team Providers Name Role Phone Liz Mike Batista Primary Care Physician JOSE JEAN Attending Clinician Unavailable ANTONIO CRAWFORD Attending Clinician Unavailable Antonio Crawford MD Attending Clinician Doctor Unassigned, [place] Attending Clinician Unavailable [email or web address] Attending Clinician Unavailable [email or web address]_Walk-In Attending Clinician Unavailable Pablo Flores Attending Clinician [phone] Harpal Jimenez Attending Clinician Unavailable GOLDY BURGESS Attending Clinician Unavailable ELIUD DUFFY Attending Clinician Unavailable Pablo Cantu RN A Attending Clinician Unavailable Jose Jean MD Attending Clinician PEREZ MEYERS Attending Clinician Unavailable ED PARRISH Attending Clinician Unavailable ABRAN BERRIOS Attending Clinician Unavailable JOSE JEAN Admitting Clinician Unavailable ANTONIO CRAWFORD Admitting Clinician Unavailable Antonio Crawford MD Admitting Clinician [email or web address] Admitting Clinician Unavailable GC_CPCN_Walk-In Admitting Clinician Unavailable Mike Hill Admitting Clinician Unavailable GOLDY BURGESS Admitting Clinician Unavailable Jose Jean MD Admitting Clinician ABRAN BERRIOS Admitting Clinician Unavailable Payers Payer Name Policy Type Policy Number Effective Date Expiration Date S ourkathrin [employer] [place] - [id number] 2021 OUT OF STATE 00:00:00 [place] [id number] 2022 [place] (H[place] [id number] 2017 [place]PP[place] 00:00:00 [place] [id number] 2021 POS/PPO/EPO 00:00:00 Problems Condition Condition Condition Status Onset Resolution Last Treating Co mments Source Name Details Category Date Date Treatment Clinician Date Vitamin D Vitamin D Problem Active [facility] deficiency Deficiency 10-08 Me dical 00:00: 00 Gout Gout Problem Active [facility] 00:[facility]: 00 Coronary Coronary Problem Active [facility] arterioscl Arterioscl 1 Me dical erosis erosis 00:00: 00 Coronary Coronary Disease [facility] [place] coronary coronary artery of artery of [place] heart heart Atypical Atypical Disease Active 2020-09 [facility] chest pain chest pain 2[facility]03 [facility] Chronic Chronic Problem Active 2020-09 [facility] kidney Kidney 09-13 Medical disease Disease 00:00: stage 4 Stage 4 00 Type II Type II Problem Active 2020-09 [facility] diabetes Diabetes 1 Medica l mellitus Mellitus 00:00: uncontroll Uncontroll 00 ed ed Hyponatrem Hyponatrem Disease Active 2020-09 U [facility] ia ia 0-07 ity of syndrome syndrome 00:00: [place] 00 Medical Branch Anemia Anemia Problem Active [facility] 04-01 Medical 00:00: 00 Essential Essential Problem Active [facility] via hypertensi Hypertensi 04-01 Me dical on on 00:00: 00 Hyperlipid Hyperlipid Problem Active [facility] emia 7-20 Medical 00:00: 00 Anemia due Anemia due Disease Active 2019- M [facility] to chronic to chronic 1- [facility] kidney 00:00: [facility] disease disease 00 l Chronic Chronic Disease Active 2018-09 [facility] kidney [facility] disease disease 00:00: [facility] 00 l Allergies, Adverse Reactions, Alerts Allergy Allergy Status Severity Reaction(s) Onset Inactive Treating Comm ents Source Name Type Date Date Clinician No Known DA Active [facility]ie - [facility] 00:[facility]: Saw[facility] 00 [facility] No Known DA Active [facility] Allergie - Clear s 00:00: Sawant 00 [facility] NO KNOWN Drug Active [facility] ALLERGIE Class ity of S [facility] NO KNOWN Allergy Active [facility] ALLERGIE S Family History Family Member Diagnosis Comments Start Date Stop Date Source Natural father [facility] Natural mother Diabetes [facility] Social History Social Habit Start Date Stop Date Quantity Comments Source Gender identity [facility] Sexual orientation [facility] Exposure to 2023-01-09 2023-01-19 Not sure University SARS-CoV-2 (event) 00:00:00 14:32:00 [facility] Alcohol intake 2021-08-15 2021-08-15 [facility] (finding) Tobacco use and 2021-08-13 2021-08-[address] [facility] exposure 00:00:00 00:00:00 tobacco non-user [facility] History of Social 2020-08-06 2020-08-[address] function 00:00:00 00:00:00 Hospital Tobacco Comment 2019-06-30 2019-06-30 once every [address] 00:00[facility]00 [facility]00 [facility] Alcohol Comment 2017-02-02 2017-02-02 2-3 beers/daily [facility] Sex Assigned At [address] [facility] 00:[facility]00 [facility]00 [facility] Smoking Status Start Date Stop Date Source Never smoked tobacco [facility] Medications Ordered Filled Start Stop Current Ordering Indication Dosage Frequency Signature Comments Components Source Medication Medication Date Date Medication? Clinician (SIG) Name Name ferrous 0 Yes 325mg Take 1 [facility] sulfate 325 5-17 tablet by ity of mg (65 mg 17:51: [place] iron[place] 13 the Medical tablet morning Branch and 1 tablet in the evening. aspirin 81 2022-0 Yes 81mg Take 1 Unive rs mg chewable 5-17 tablet by ity of tablet 17:51: mouth in [place] 13 the Medical morning. Branch levocetiriz 2022-0 Yes 5mg Take 1 Univ ers ine 5 mg 5-17 tablet by ity of tablet 17:51: mouth in [place] 13 the Medical morning. Branch rosuvastati 2022-0 Yes 40mg Take 1 Univ ers n 40 mg 5-17 tablet by ity of tablet 17:51: mouth [place] 13 every Medical evening. Branch With dinner linagliptin 2022-0 Yes 1{tbl} Take 1 Un chani -metformin 5-17 tablet by ity of (JENTADUETO 17:51: mouth 2 Na[place] as ) 2.5-500 13 (two) Medical mg Tab times Branch daily. icosapent 2022-0 Yes 1g Take 1 Univer s ethyL 1 5-17 capsule by ity of gram 17:51: mouth in [place] capsule 13 the Medical morning Branch and 1 capsule in the evening. Diflupredna 2022-0 Yes 1[drp] Place 1 U nivers te 5-17 Drop in ity of (DUREZOL) 17:51: each eye [place] 0.05 % Drop 13 in the Medica l morning Branch and 1 Drop in the evening. Both eyes clopidogreL 2022-0 Yes 75mg Take 1 Univ ers 75 mg 5-17 tablet by ity of tablet 17:51: mouth in [place] 13 the Medical morning. Branch carvediloL 2022-0 Yes 25mg Take 1 Unive rs 25 mg 5-17 tablet by ity of tablet 17:51: mouth in [place] 13 the Medical morning Branch and 1 tablet in the evening. Take with meals. isosorbide 2022-0 Yes 60mg Take 1 Unive rs mononitrate 5-17 tablet by ity of 60 mg 24 hr 17:51: mouth in [place] tablet 13 the Medical morning. Branch ferrous 2022-0 Yes 325mg Take 1 [facility] sulfate 325 5-17 tablet by ity of mg (65 mg 17:51: mouth [place] iron) 13 the Medical tablet morning Branch and 1 tablet in the evening. aspirin 81 3-0 Yes 81mg Take 1 Unive rs mg chewable 5-17 tablet by ity of tablet 17:51: mouth in [place] 13 the Medical morning. Branch levocetiriz 2022-0 Yes 5mg Take 1 Univ ers ine 5 mg 5-17 tablet by ity of tablet 17:51: mouth in [place] 13 the Medical morning. Branch rosuvastati 2022-0 Yes 40mg Take 1 Univ ers n 40 mg 5-17 tablet by ity of tablet 17:51: mouth [place] 13 every Medical evening. Branch With dinner linagliptin 2022-0 Yes 1{tbl} Take 1 Un chani -metformin 5-17 tablet by ity of (JENTADUETO 17:51: mouth 2 Na[place] as ) 2.5-500 13 (two) Medical mg Tab times Branch daily. icosapent 2022-0 Yes 1g Take 1 Univer s ethyL 1 5-17 capsule by ity of gram 17:51: mouth in [place] capsule 13 the Medical morning Branch and 1 capsule in the evening. Diflupredna 2022-0 Yes 1[drp] Place 1 U nivers te 5-17 Drop in ity of (DUREZOL) 17:51: each eye [place] 0.05 % Drop 13 in the Medica l morning Branch and 1 Drop in the evening. Both eyes clopidogreL 2022-0 Yes 75mg Take 1 Univ ers 75 mg 5-17 tablet by ity of tablet 17:51: mouth in [place] 13 the Medical morning. Branch carvediloL 2022-0 Yes 25mg Take 1 Unive rs 25 mg 5-17 tablet by ity of tablet 17:51: mouth in [place] 13 the Medical morning Branch and 1 tablet in the evening. Take with meals. isosorbide 3-0 Yes 60mg Take 1 Unive rs mononitrate 5-17 tablet by ity of 60 mg 24 hr 17:51: mouth [place] tablet 13 the Medical morning. Branch ferrous 3-0 Yes 325mg Take 1 Univers sulfate 325 5-17 tablet by ity of mg (65 mg 17:51: [place] iron) 13 the Medical tablet morning Branch and 1 tablet in the evening. aspirin 81 3-0 Yes 81mg Take 1 Unive rs mg chewable 5-17 tablet by ity of tablet 17:51: mouth in [place] 13 the Medical morning. Branch levocetiriz 2022-0 Yes 5mg Take 1 Univ ers ine 5 mg 5-17 tablet by ity of tablet 17:51: mouth in [place] 13 the Medical morning. Branch rosuvastati 2022-0 Yes 40mg Take 1 Univ ers n 40 mg 5-17 tablet by ity of tablet 17:51: mouth [place] 13 every Medical evening. Branch With dinner linagliptin 2022-0 Yes 1{tbl} Take 1 Un chani -metformin 5-17 tablet by ity of (JENTADUETO 17:51: mouth 2 Naresh as ) 2.5-500 13 (two) Medical mg Tab times Branch daily. icosapent 2022-0 Yes 1g Take 1 Univer s ethyL 1 5-17 capsule by ity of gram 17:51: mouth in [place] capsule 13 the Medical morning Branch and 1 capsule in the evening. Diflupredna 2022-0 Yes 1[drp] Place 1 U nivers te 5-17 Drop in ity of (DUREZOL) 17:51: each eye [place] 0.05 % Drop 13 in the Medica l morning Branch and 1 Drop in the evening. Both eyes clopidogreL 2022-0 Yes 75mg Take 1 Univ ers 75 mg 5-17 tablet by ity of tablet 17:51: mouth in [place] 13 the Medical morning. Branch carvediloL 2022-0 Yes 25mg Take 1 Unive rs 25 mg 5-17 tablet by ity of tablet 17:51: mouth in [place] 13 the Medical morning Branch and 1 tablet in the evening. Take with meals. isosorbide 2022-0 Yes 60mg Take 1 Unive rs mononitrate 5-17 tablet by ity of 60 mg 24 hr 17:51: mouth in [place] tablet 13 the Medical morning. Branch lactated 2022-0 Yes 1000mL at 50 Univer s ringers IV 5-17 mL/hr, ity of infusion 16:30: 1,000 mL, [place] 1,000 mL 00 IV Medical Infusion, Branch CONTINUOUS , Starting on Wed01/27/23 at 1130, Until Discontinu ed, Routine, PACU lactated 2022-0 2023- No 1000mL at 50 Unive rs ringers IV 5-17 05-18 mL/hr, ity of infusion 16:30: 00:56 1,000 mL, Na[place] as 1,000 mL 00 :17 IV Medical Infusion, Branch CONTINUOUS , Starting on Wed01/27/23 at 1130, Until Wed01/27/23 at 1956, Routine, PACU ondansetron 0 Yes 4mg 4 mg, Slow Univers (ZOFRAN 5-17 IV Push, ity of (PF)) 16:25: PRN, 1 [place] injection 4 44 dose, Medical mg Starting Branch on Wed01/27/23 at 1125, Until Discontinu ed, Routine, Nausea and Vomiting (N/V), PACU ondansetron 2022-0 2022- No 4mg 4 mg, Slow Univers (ZOFRAN - 05-18 IV Push, ity of (PF)) 16:25: 00:56 PRN, 1 [place] injection 4 44 :17 dose, Medical mg Starting Branch on Wed01/27/23 at 1125, Until Wed01/27/23 at 195, Routine, Nausea and Vomiting (N/V), PACU neomycin-po 2022-0 2022- No PRN, [facility] rs lymyxin-dex 01-27 Starting ity of amethasone 16:13: 16:26 on Wed [place] (MAXITROL) 00 :37 01/27/23 at Med ical 3.5 1113, Branch mg/g-10,000 Until Wed unit/g-0.1 01/27/23 at % 1126, ophthalmic Routine, ointment Intra-op sodium 0 2022- No PRN, Univers chloride 01-27 Starting ity of (NS) 16:10: 16:26 on Wed [place] injection 00 :37 01/27/23 at Medi dharmesh 1110, Branch Until Wed01/27/23 at 1126, Routine, Intra-op dexamethaso 0 2022- No PRN, [facility] rs ne 01-27 Starting ity of (DECADRON 16:10: 16:26 on Wed [place] PHOSPHATE) 00 :37 01/27/23 at Med ical injection 1110, Branch Until Wed01/27/23 at 1126, Routine, Intra-op ceFAZolin 2023-0 2023- No PRN, Univers (ANCEF) 01-27 Starting ity of injection 16:10: 16:26 on Wed [place] 00 :37 01/27/23 at Medical 1110, Branch Until 01/27/23 at 1126, LOBO, Intra-op carbachoL 2022- No PRN, Univers (MIOSTAT) 01-27 Starting ity o f 0.01 % 16:09: 16:26 on Wed [place] intraocular 00 :37 01/27/23 at Ny dical injection 1109, Branch Until 01/27/23 at 1126, Routine, Intra-op EPINEPHrine 2022- No PRN, Unive rs 1:1,000 (1 01-27 Starting ity of mg/mL) 15:49: 16:26 on Wed [place] (ADRENALIN) 00 :37 23 at Ny dical injection 1049, Branch Until 01/27/23 at 1126, Routine, Intra-op chondroitin 2022- No PRN, Unive rs sulf-sod 01-27 Starting ity of hyaluronate 15:49: 16:26 on Wed [place] as (DUOVISC 00 :37 01/27/23 at Medic al VISCO 1049, Branch ELASTIC) Until Wed intraocular 01/27/23 at injection 1126, Routine, Intra-op balanced 2022- No PRN, Univers salt irrig 01-27 Starting ity of soln comb1 15:49: 16:26 on Wed [place] (BSS PLUS) 00 :37 01/27/23 at Med ical ophthalmic 1049, Branch solution Until Wed 500 mL bag 01/27/23 at 1126, Routine, Intra-op water for 2022- No PRN, Univers irrigation 01-27 Starting ity of irrigation 15:40: 16:26 on Wed [place] solution 00 :37 1723 at Medic al 1040, Branch Until 01/27/23 at 1126, Routine, Intra-op Hyaluronida 2022- No PRN, Unive rs se, Human 01-27 Starting ity o f Recomb. 15:37: 16:26 on Wed (HYLENEX) 00 :37 01/27/23 at Medi dharmesh injection 1037, Branch Until Wed01/27/23 at 1126, Routine, Intra-op eye block 2022- No PRN, Univers syringe 11 01-27 Starting ity of mL 15:37: 16:26 on Wed 00 :37 01/27/23 at Medical 1037, Branch Until Wed01/27/23 at 1126, Intra-op cyclopent 2022- No .5mL 0.5 mL, Univ ers 1%-tropic 01-27 Left Eye, ity of 1%-phenyl 14:45: 14:39 ONCE, 1 [place] 2.5%-ketor 00 :00 dose, On Medic al 0.5% Wed Branch (MYDRIATIC 01/27/23 at #5) 0945, ophthalmic Routine, solution DSU Pre-op syringe 0.5 mL lactated 2022- No 1000mL at 42 Unive rs ringers IV 01-27 mL/hr, ity of infusion 14:45: 14:39 1,000 mL, [place] 1,000 mL 00 :00 IV Medical Infusion, Branch ONCE, 1 dose, On Wed01/27/23 at 0945, Routine, DSU Pre-op cyclopent 2022- No .5mL 0.5 mL, Univ ers 1%-tropic 01-27 Left Eye, ity of 1%-phenyl 14:45: 14:39 ONCE, 1 [place] 2.5%-ketor 00 :00 dose, On Medic al 0.5% Wed Branch (MYDRIATIC 01/27/23 at #5) 0945, ophthalmic Routine, solution DSU Pre-op syringe 0.5 mL lactated 2022- No 1000mL at 42 Unive rs ringers IV 01-27- mL/hr, ity of infusion 14:45: 14:39 1,000 mL, [place] 1,000 mL 00 :00 IV Medical Infusion, Branch ONCE, 1 dose, On Wed01/27/23 at 0945, Routine, DSU Pre-op isosorbide 2020-09- No 30mg QD Take [address] [facility] mononitrate 2-04 12- tablet (30 L u[facility] (IMDUR) 30 00:00: 23:59 mg total) M edical MG 24 hr 00 :00 by mouth Center tablet daily. lisinopril 2020-09 Yes 10mg QD Take [address] (PRINIVIL,Z 2-03 by mouth Luke s ESTRIL) 40 14:50: daily . Medi dharmesh MG tablet 17 [place] ferrous 2020-09 Yes 325mg Take 325 [facility] sulfate 325 2-03 mg by [facility] (65 FE) MG 14:50: mouth Medica l tablet 17 daily with Center breakfast. aspirin 81 2020-09 Yes 81mg QD Take [address] MG EC 2-03 by mouth [facility] tablet 14:50: daily. [address] febuxostat 2020-09 Yes 40mg QD Take [address] 40 mg 2-03 by mouth [facility] tablet 14:50: daily. [address] cholecalcif 2020-09 Yes 1000U QD Take 1,[address] [facility] [place] 2-03 Units by [facility]ukes (VITAMIN 14:50: mouth Medical D3) 10 mcg 17 daily. [place] (400 unit) Tab tablet rosuvastati 2020-09 Yes 40mg QD Take [address] [facility] (CRESTOR) 2-03 by mouth Luke s 40 MG 14:50: daily. Medical tablet 17 [place] levocetiriz 2020-09 Yes 5mg QD Take [address] ine (XYZAL) 2-03 by mouth Luke s 5 MG tablet 14:50: every Medic al 17 evening. [place] carvediloL 2020-09- No 6.25mg Q.5D Take [address] (COREG) 2-11 22- tablet [facility] 6.25 MG 00:00: 23:59 (6.25 mg Medic al tablet 00 :00 total) by Center mouth 2 (two) times daily. amLODIPine 2020-09 Yes [id number] 5mg Take 1 U nivers 5 mg tablet 0-10 tablet by ity of 00:00: mouth [place] 00 [facility]. [facility] cholecalcif 2020-09 Yes [id number] 2000U Take 2 Univers [place], 0-10 tablets by ity of vitamin D3, 00:00: mouth [place] 25 mcg 00 daily. Medical (1,000 Branch unit) tablet lisinopriL 2020-09 Yes [id number] 5mg Take 1 U nivers 5 mg tablet 0-10 tablet by ity of 00:00: mouth [place] 00 daily. Medical Branch amLODIPine 2020-09 Yes [id number] 5mg Take 1 U nivers 5 mg tablet 0-10 tablet by ity of 00:00: mouth [place] 00 daily. Medical Branch cholecalcif 2020-09 Yes [id number] 1999U Take 2 Univers [place], 0-10 tablets by ity of vitamin D3, 00:00: mouth [place] 25 mcg 00 daily. Medical (1,000 Branch unit) tablet lisinopriL 2020-09 Yes [id number] 5mg Take 1 U nivers 5 mg tablet 0-10 tablet by ity of 00:00: mouth [place] 00 daily. Medical Branch amLODIPine 2020-09 Yes [id number] 5mg Take 1 U nivers 5 mg tablet 0-10 tablet by ity of 00:00: mouth [place] 00 daily. Medical Branch cholecalcif 2020-09 Yes [id number] 1999U Take 2 Univers [place], 0-10 tablets by ity of vitamin D3, 00:00: mouth [place] 25 mcg 00 daily. Medical (1,000 Branch unit) tablet lisinopriL 2020-09 Yes [id number] 5mg Take 1 U nivers 5 mg tablet 0-10 tablet by ity of 00:00: mouth [place] 00 daily. Medical Branch amLODIPine 2020-09 Yes [id number] 5mg Take 1 U nivers 5 mg tablet 0-10 tablet by ity of 00:00: mouth [place] 00 daily. Medical Branch cholecalcif 2020-09 Yes [id number] Take 2 Univers [place], 0-10 tablets by ity of vitamin D3, 00:00: mouth [place] 25 mcg 00 daily. Medical (1,000 Branch unit) tablet lisinopriL 2020-09 Yes [id number] 5mg Take 1 U nivers 5 mg tablet 0-10 tablet by ity of 00:00: mouth [place] 00 daily. Medical Branch amLODIPine 2020-09 Yes [id number] 5mg Take 1 U nivers 5 mg tablet 0-10 tablet by ity of 00:00: mouth [place] 00 daily. Medical Branch cholecalcif 2020-09 Yes [id number] 1999U Take 2 Univers [place], 0-10 tablets by ity of vitamin D3, 00:00: mouth [place] 25 mcg 00 daily. Medical (1,000 Branch unit) tablet lisinopriL 2020-09 Yes [id number] 5mg Take 1 U nivers 5 mg tablet 0-10 tablet by ity of 00:00: mouth [place] 00 daily. Medical Branch amLODIPine 2020-09 Yes [id number] 5mg Take 1 U nivers 5 mg tablet 0-10 tablet by ity of 00:00: mouth [place] 00 daily. Medical Branch cholecalcif 2020-09 Yes [id number] 2000U Take 2 Univers [place], 0-10 tablets by ity of vitamin D3, 00:00: mouth [place] 25 mcg 00 daily. Medical (1,000 Branch unit) tablet lisinopriL 2020-09 Yes [id number] 5mg Take 1 U nivers 5 mg tablet 0-10 tablet by ity of 00:00: mouth [place] 00 daily. Medical Branch febuxostat 2020-09 Yes [id number] 40mg 40 mg, U nivers (ULORIC) 0-09 Oral, ity of tablet 40 14:00: DAILY, [place] mg 00 First dose Medical on Sat Branch 06/21/21 at 0900, Until Discontinu ed, Routine lisinopriL 2020-09 Yes [id number] 5mg 5 mg, Un chani (PRINIVIL,Z 0-09 [...] ity of tablet 11:52: daily. Medical Branch rosuvastati 2020-09 Yes 40mg Take 40 mg Univers n 40 mg 0-09 by mouth ity of tablet 11:52: every 04 evening. Medical With Branch dinner linagliptin [...] by mouth ity of tablet 11:52: daily. [place] [address] Medical Branch levocetiriz 2020-09 Yes 5mg Take 5 mg U nivers ine 5 mg 0-09 by mouth ity of tablet 11:52: daily. [place] [address] Medical Branch rosuvastati 2020-09 Yes 40mg Take 40 mg Univers n 40 mg 0-09 by mouth ity of tablet 11:52: every [place] [address] evening. Medical With Branch dinner linagliptin 2020-09 [...] by mouth ity of tablet 11:52: daily. [place] [address] Medical Branch levocetiriz 2020-09 Yes 5mg Take 5 mg U nivers ine 5 mg 0-09 by mouth ity of tablet 11:52: daily. [place] Medical Branch rosuvastati 2020-09 Yes 40mg Take 40 mg Univers n 40 mg 0-09 by mouth ity of tablet 11:52: every [place] 04 evening. Medical With Branch dinner linagliptin 2020-09 Yes 1{tbl} Take 1 Un chani -metformin 0-09 tablet by ity of (JENTADUETO 11:52: mouth 2 Naresh as ) 2.5-500 04 (two) Medical mg Tab times [place] daily. icosapent 2020-09 Yes 1{capsu Take 1 Uni vers ethyL 1 0-09 le} capsule by ity of gram 11:52: mouth 2 [place] capsule 04 (two) Medical times [place] daily. Diflupredna 2020-09 Yes 1[drp] Place 1 U nivers te 0-09 Drop in ity of (DUREZOL) 11:52: each eye 2 [place] 0.05 % Drop 04 (two) Medical times [place] daily. Both eyes lisinopriL 2020-09- No 40mg Take 40 mg Univers 40 mg 0-09 10-09 by mouth 2 ity of tablet 09:27: 00:00 (two) [place] 02 :00 times Medical daily. Branch hydrALAZINE 2020-09- No 50mg Take 50 mg Univers 50 mg 0-09 10-09 by mouth 3 ity of tablet 09:27: 00:00 (three) [place] 02 :00 times Medical daily. Branch furosemide 2020-09- No 20mg Take 20 mg Univers 20 mg 0-09 10-09 by mouth ity of tablet 09:27: 00:00 every [place] 02 :00 morning Medical and Branch evening. 0800 am and 1400 febuxostat 2020-09 Yes [id number] 40mg Take 1 U nivers 40 mg 0-09 tablet by ity of tablet 00:00: mouth [place] 00 daily. Medical Branch febuxostat 2020-09 Yes [id number] 40mg Take 1 U nivers 40 mg 0-09 tablet by ity of tablet 00:00: mouth [place] 00 daily. Medical Branch febuxostat 2020-09 Yes [id number] 40mg Take 1 U nivers 40 mg 0-09 tablet by ity of tablet 00:00: mouth [place] 00 daily. Medical Branch febuxostat 2020-09 Yes [id number] 40mg Take 1 U nivers 40 mg 0-09 tablet by ity of tablet 00:00: mouth [place] 00 daily. Medical Branch febuxostat 2020-09 Yes [id number] 40mg Take 1 U nivers 40 mg 0-09 tablet by ity of tablet 00:00: mouth [place] 00 daily. Medical Branch febuxostat 2020-09 Yes [id number] 40mg Take 1 U nivers 40 mg 0-09 tablet by ity of tablet 00:00: mouth [place] 00 daily. Medical Branch NaCl 0.9% 2020-09 Yes [id number] IV Unive rs (NS) IV 0-08 Infusion, ity of infusion 19:15: at 100 [place] 00 mL/hr, Medical CONTINUOUS Branch , Starting on Wed06/20/21 at 1415, Until Discontinu ed, STAT amLODIPine 2020-09 Yes [id number] 5mg 5 mg, Un chani (NORVASC) 0-08 Oral, ity of tablet 5 mg 14:00: DAILY, [place] 00 First dose Medical on Wed [place] 06/20/21 at 0900, Until Discontinu ed, Routine aspirin 2020-09 Yes 81mg 81 mg, Univers chewable 0-08 Oral, ity of tablet 81 14:00: DAILY, [place] mg 00 First dose Medical on Wed [place] 06/20/21 at 0900, Until Discontinu ed, Routine NaCl 0.9% 2020-09- No [id number] IV Univ ers (NS) IV 0-08 10-08 [...] Until Discontinu ed, Routine rosuvastati 2020-09 Yes [id number] 40mg 40 mg, Univers n (CRESTOR) 0-08 Oral, QHS, it y of tablet 40 02:00: First dose [place] mg 00 on [facility] Medical 06/19/21 at Branch 2100, Until Discontinu ed, Routine ferrous 2020-09 Yes [id number] 325mg 325 mg, Un chani sulfate 0-08 Oral, BID, ity of tablet 325 01:00: First dose [place] mg 00 on [facility] Medical 06/19/21 at Branch 2000, Until Discontinu ed, Routine hydrALAZINE 2020-09- No [id number] 50mg 50 mg, Univers (APRESOLINE 0-08 10-08 Oral, BID, i ty of ) tablet 50 01:00: 02:31 1 dose, [place] mg 00 :00 First dose Medical (after Branch last modificati on) on [place] 06/19/21 at 2000, Routine NaCl 0.9% 2020-09- No [id number] IV Univ ers (NS) IV 0-07 10-08 [...] , Starting on Wed06/19/21 at 1230, Until Wed06/19/21 at 1741, Routine Sliding 2020-09 Yes Subcutaneo Univ ers Scale 0-07 us, TID ity of Insulin - 17:00: MEALS+HS, [place] as Lispro 00 First dose Medical (HumaLOG) + on [facility] Branch Fsbg 06/19/21 at Testing 1200, [...] 01 Starting Medica l 25 mL on [facility] Branch 06/19/21 at 1005, Until Discontinu ed, LOBO, Blood Glucose < or = 70 mg/dL and patient is unable to swallow or has mental status changes. cholecalcif 2020-09 Yes [id number] 2000U 2,000 Univers [place] 0-07 Units, ity of (vitamin 14:45: Oral, [place] D3) tablet 00 DAILY, Medical 2,000 Units First dose Br anch on [facility] 06/19/21 at 0945, Until Discontinu ed, Routine acetaminoph 2020-09 Yes 650mg 650 mg, Un chani en 0-07 Oral, ity of (TYLENOL) 14:18: Q6HPRN, [place] tablet 650 47 Starting Medic al mg on [facility] Branch 06/19/21 at 0918, Until Discontinu ed, Routine, Pain (scale 1-3) glimepiride 2020-09- No 4mg Take 4 mg Univers 4 mg tablet 0-03 22-07 by mouth ity of 12:08: 00:00 daily with [place] 53 :00 breakfast. Medical Branch bisoproloL- 2020-09- No 1{tbl} Take 1 U nivers hydrochloro 0-07 10-07 tablet by it y of thiazide 12:08: 00:00 mouth 2 [place] 10-6.25 mg 53 :00 (two) Medical per tablet times Branch daily. bisoprolol- Yes 1{tbl} QD Take 1 [facility] hydrochloro 9-[address] thiazide 14:02: mouth [facility] (ZIAC) 17 daily. l 10-6.25 mg per tablet lisinopril Yes 40mg QD Take 40 mg M ethodi (PRINIVIL) [address] 40 mg 14:02: daily. [facility]osp[facility] tablet 17 l glimepiride Yes 4mg QD Take 4 mg M ethodi (AMARYL) 4 05-[address] MG tablet 14:02: daily [facility]osp[facility] 17 before l breakfast. furosemide Yes 20mg Q.5D Take 20 mg M ethodi (LASIX) 20 05-[address] mg tablet 14:02: (two) [facility]osp[facility] 17 times a l day. ferrous Yes 325mg QD Take 325 Metho di sulfate 325 9-[address] (65 FE) MG 14:02: mouth Hospit a tablet 17 daily with l breakfast. loratadine Yes 10mg QD Take 10 mg M ethodi (CLARITIN) 05-[address] 10 mg 14:02: daily. [facility]osp[facility] tablet 17 l darbepoetin Yes 40ug Q28D Inject 40 M ethodi davy-polyso 9-[address] rbate 14:02: the skin Hospita (Aranesp, 17 every 28 l in days. polysorbate ,) 40 mcg/mL injection rosuvastati Yes 40mg QD Take 40 mg Methodi n (CRESTOR) 3-[address] 40 MG 00:00: daily. [facility]osp[facility] tablet 00 l hydrALAZINE 2019-09 Yes 50mg QD Take 50 mg [facility] (APRESOLINE 2-[address] ) 50 MG 00:00: daily. [facility]ospita tablet 00 l levocetiriz 2019-09 Yes 5mg QD Take 5 mg M ethodi ine (XYZAL) 0-[address] 5 MG tablet 00:00: every Hospi ta 00 evening. l Vascepa 1 2019-09 Yes 1g Q.5D Take 1 g Meth kimberly gram 0-[address] capsule 00:00: (two) [facility]ospita 00 times a l day with meals. aspirin 81 2019-09 Yes 81mg QD 81 mg Method i mg chewable 0-[address] tablet 00:00: Hospita 00 l Jentadueto Yes 1{tbl} QD Take 1 Met hodi XR 8-[address] 2.5-1,000 00:00: mouth [facility]osp[facility] mg tablet, 00 daily. l IR & ER, biphasic 24hr amlodipine amlodipine No 1 Q1D amlodipine [facility] 10 mg 10 mg 10 mg Medical tablet Take tablet Take tablet 1 tablet 1 tablet Take 1 every day every day tablet by oral by oral every day route. route. by oral route. aspirin 81 aspirin 81 No 1 Q1D aspirin 81 [facility] mg chewable mg chewable mg M edical tablet Chew tablet Chew chewable 1 tablet 1 tablet tablet every day every day Chew 1 by oral by oral tablet route. route. every day by oral route. carvedilol carvedilol No 1 BID carvedilol [facility] 25 mg 25 mg 25 mg Medical tablet Take tablet Take tablet 1 tablet 1 tablet Take 1 twice a day twice a day tablet by oral by oral twice a route. route. day by oral route. cholecalcif cholecalcif No 1capsul Q1W cholecalci [facility] savanah savanah e(s) ferol Medical (vitamin (vitamin (vitamin D3) 1,250 D3) 1,250 D3) 1,250 mcg (50,000 mcg (50,000 mcg unit) unit) (50,000 capsule capsule unit) Take 1 Take 1 capsule capsule capsule Take 1 every week every week capsule by oral by oral every week route. route. by oral route. clopidogrel clopidogrel No 1 Q1D clopidogre [facility] 75 mg 75 mg l 75 mg Medical tablet Take tablet Take tablet 1 tablet 1 tablet Take 1 every day every day tablet by oral by oral every day route. route. by oral route. famotidine famotidine No 1 Q1D famotidine [facility] 20 mg 20 mg 20 mg Medical tablet Take tablet Take tablet 1 tablet 1 tablet Take 1 every day every day tablet by oral by oral every day route. route. by oral route. furosemide furosemide No .5 BID furosemide [facility] 20 mg 20 mg 20 mg Medical tablet Take tablet Take tablet 0.5 tablets 0.5 tablets Take 0.5 twice a day twice a day tablets by oral by oral twice a route. route. day by oral route. isosorbide isosorbide No 1 Q1D isosorbide [facility] dinitrate dinitrate dinitrate [facility] 20 mg 20 mg 20 mg tablet Take tablet Take tablet 1 tablet 1 tablet Take 1 every day every day tablet by oral by oral every day route. route. by oral route. rosuvastati rosuvastati No 1 Q1D rosuvastat [facility] n 40 mg n 40 mg in 40 mg Medic al tablet Take tablet Take tablet 1 tablet 1 tablet Take 1 every day every day tablet by oral by oral every day route at route at by oral dinner. dinner. route at dinner. Uloric 40 Uloric 40 No 1 Q1D Uloric 40 [facility] mg tablet mg tablet mg tablet Medical Take 1 Take 1 Take 1 tablet tablet tablet every day every day every day by oral by oral by oral route. route. route. Vascepa 1 Vascepa 1 No 2capsul BID Vascepa 1 [facility] gram gram e(s) gram Medical capsule capsule capsule Take 2 Take 2 Take 2 capsules capsules capsules twice a day twice a day twice a by oral by oral day by route. route. oral route. amlodipine amlodipine No 1 Q1D amlodipine [facility] 10 mg 10 mg 10 mg Medical tablet Take tablet Take tablet 1 tablet 1 tablet Take 1 every day every day tablet by oral by oral every day route. route. by oral route. aspirin 81 aspirin 81 No 1 Q1D aspirin 81 [facility] mg chewable mg chewable mg M edical tablet Chew tablet Chew chewable 1 tablet 1 tablet tablet every day every day Chew 1 by oral by oral tablet route. route. every day by oral route. carvedilol carvedilol No 1 BID carvedilol [facility] 25 mg 25 mg 25 mg Medical tablet Take tablet Take tablet 1 tablet 1 tablet Take 1 twice a day twice a day tablet by oral by oral twice a route. route. day by oral route. cholecalcif cholecalcif No cholecalci [facility] savanah savanah ferol Medical (vitamin (vitamin (vitamin D3) 1,250 D3) 1,250 D3) 1,250 mcg (50,000 mcg (50,000 mcg unit) unit) (50,000 capsule capsule unit) TAKE 1 TAKE 1 capsule CAPSULE CAPSULE TAKE 1 EVERY WEEK EVERY WEEK CAPSULE BY ORAL BY ORAL EVERY WEEK ROUTE. ROUTE. BY ORAL ROUTE. clopidogrel clopidogrel No 1 Q1D clopidogre [facility] 75 mg 75 mg l 75 mg Medical tablet Take tablet Take tablet 1 tablet 1 tablet Take 1 every day every day tablet by oral by oral every day route. route. by oral route. febuxostat febuxostat No 1 Q1D febuxostat [facility] 40 mg 40 mg 40 mg Medical tablet Take tablet Take tablet 1 tablet 1 tablet Take 1 every day every day tablet by oral by oral every day route. route. by oral route. ferrous ferrous No 1 Q1D ferrous [facility] sulfate 325 sulfate 325 sulfate Medical mg (65 mg mg (65 mg 325 mg (65 iron) iron) mg iron) tablet Take tablet Take tablet 1 tablet 1 tablet Take 1 every day every day tablet by oral by oral every day route. route. by oral route. isosorbide isosorbide No 1 Q1D isosorbide [facility] dinitrate dinitrate dinitrate [facility] 20 mg 20 mg 20 mg tablet Take tablet Take tablet 1 tablet 1 tablet Take 1 every day every day tablet by oral by oral every day route. route. by oral route. rosuvastati rosuvastati No 1 Q1D rosuvastat [facility] n 40 mg n 40 mg in 40 mg Medic al tablet Take tablet Take tablet 1 tablet 1 tablet Take 1 every day every day tablet by oral by oral every day route at route at by oral dinner. dinner. route at dinner. Immunizations Ordered Filled Immunization Date Status Comments [facility] e Immunization Name Name [facility] COVID-19 2021-07-08 Completed [facility]ACC[facility] 00:00:00 [facility] COVID-19, mRNA, COVID-19, mRNA, 2021-07-08 Completed [facility] LNP-S, PF, 30 LNP-S, PF, 30 00:00:00 mcg/0.3 mL dose mcg/0.3 mL dose ([facility]) ([facility]) Pneumococcal 2021-06-21 Completed [place] [facility] f Polysaccharide, 00:00:00 [place] [facility] PPSV23 (PNEUMOVAX) Branch Pneumococcal 2021-06-21 Completed [place] o f Polysaccharide, 00:00:00 [place] [facility] PPSV23 (PNEUMOVAX) Branch Pneumococcal 2021-06-21 Completed [facility] f Polysaccharide, 00:00:00 [place] [facility] PPSV23 (PNEUMOVAX) Branch Pneumococcal 2021-06-21 Completed [facility] o f Polysaccharide, 00:00:00 [place] [facility] PPSV23 (PNEUMOVAX) Branch Pneumococcal 2021-06-21 Completed [facility] o f Polysaccharide, 00:00:00 [place] [facility] PPSV23 (PNEUMOVAX) Branch Pneumococcal 2021-06-21 Completed [place] o f Polysaccharide, 00:00:00 [place] [facility] PPSV23 (PNEUMOVAX) Branch [facility] COVID-19 2020-12-12 Completed [facility]00 [facility] COVID-19 COVID-19 2020-12-12 Completed [facility] (SARS-COV-2) (SARS-COV-2) 00:00:00 vaccine, vaccine, unspecified unspecified COVID-19, mRNA, COVID-19, mRNA, 2020-12-12 Completed [facility] LNP-S, PF, 30 LNP-S, PF, 30 00:00:00 mcg/0.3 mL dose mcg/0.3 mL dose ([facility] ([facility]) [facility] COVID-19 2020-11-21 Completed [facility] VACCINATION 00:00:00 [facility] COVID-19, mRNA, COVID-19, mRNA, 2020-11-21 Completed [facility] LNP-S, PF, 30 LNP-S, PF, 30 00:00:00 mcg/0.3 mL dose mcg/0.3 mL dose ([facility]) ([facility]) COVID-19 COVID-19 2020-11-11 Completed [facility] (SARS-COV-2) (SARS-COV-2) 00:00:00 vaccine, vaccine, unspecified unspecified influenza, influenza, 2020-07-14 Completed [facility] injectable, injectable, 00:00:00 quadrivalent quadrivalent influenza, influenza, 2020-07-14 Completed [facility] injectable, injectable, 00:00:00 quadrivalent quadrivalent Influenza Virus 2020-07-14 Completed [facility] Vaccine [facility] 00:00:00 [place] [facility] Multi-dose 6+ MO Branch Influenza Virus 2020-07-14 Completed [facility] Vaccine [facility] 00:00:00 [place] [facility] Multi-dose 6+ MO Branch Influenza Virus 2020-07-14 Completed [facility] Vaccine [facility] 00:00:00 [place] [facility] Multi-dose 6+ MO Branch Influenza Virus 2020-07-14 Completed [facility] of Vaccine [facility] 00:00:00 [place] [facility] Multi-dose 6+ MO Branch Influenza Virus 2020-07-14 Completed [facility] of Vaccine [facility] 00:00:00 [place] [facility] Multi-dose 6+ MO Branch Influenza Virus 2020-07-14 Completed [facility] of Vaccine [facility] 00:00:00 [place] [facility] Multi-dose 6+ MO Branch Vital Signs Vital Name Observation Time Observation Value Comments Source Oxygen saturation in 2023-01-27 16:40:00 100 /min [facility] of Arterial blood by [facility] Pulse oximetry Branch Systolic blood 2023-01-27 16:35:00 127 mm[Hg] Univer sity of pressure [facility] Diastolic blood 2023-01-27 16:35:00 63 mm[Hg] Unive rsity of pressure [facility] Respiratory rate 2023-01-27 16:35:00 11 /min Univ ersity of [facility] Heart rate 2023-01-27 16:20:00 65 /min [facility]i ty of [facility] Body temperature 2023-01-27 16:16:00 36.33 Yadira [facility] ersity of [facility] Branch Body height 2023-01-19 19:00:00 172.7 cm [facility] [place] [facility] Body weight 2023-01-19 19:00:00 74.844 kg [facility] [place] [facility] BMI 2023-01-19 19:00:00 25.09 kg/m2 Universi ty of [facility] Systolic blood 2023-01-27 14:34:00 139 mm[Hg] Univer sity of pressure [facility] Diastolic blood 2023-01-27 14:34:00 72 mm[Hg] Unive rsity of pressure [facility] Heart rate 2023-01-27 14:34:00 65 /min [facility]i ty of [facility] Body temperature 2023-01-27 14:34:00 36.56 Yadira [facility] ersity of [facility] Respiratory rate 2023-01-27 14:34:00 16 /min Univ ersity of [facility] Oxygen saturation in 2023-01-27 14:34:00 99 /min [facility] Arterial blood by [facility] Pulse oximetry Branch Body height 2023-01-19 19:00:00 172.7 cm [facility] [place] [facility] Body weight 2023-01-19 19:00:00 74.844 kg [facility] [place] [facility] BMI 2023-01-19 19:00:00 25.09 kg/m2 [facility]i [facility] of [facility] BP Diastolic 2022-10-08 00:00:00 56 mm[Hg] [facility] Height 2022-10-08 00:00:00 68 [in_i] [facility] ed[facility] BMI (Body Mass 2022-10-08 00:00:00 25.8 kg/m2 [facility] Medical Index) BP Systolic 2022-10-08 00:00:00 122 mm[Hg] [facility] Body Weight 2022-10-08 00:00:00 2720 [oz_av] [facility] BP Diastolic 2022-03-24 00:00:00 63 mm[Hg] [facility] Height 2022-03-24 00:00:00 68 [in_i] [facility] BMI (Body Mass 2022-03-24 00:00:00 25 kg/m2 [facility] Medical Index) BP Systolic 2022-03-24 00:00:00 141 mm[Hg] [facility] Body Weight 2022-03-24 00:00:00 2632 [oz_av] [facility] HEIGHT 2021-08-14 00:15:00 172.7 cm WEIGHT 2021-08-14 00:15:00 79.379 kg HEIGHT 2021-08-13 23:00:00 172.7 cm WEIGHT 2021-08-13 23:00:00 79.379 kg HEIGHT 2021-08-14 00:15:00 172.7 cm WEIGHT 2021-08-14 00:15:00 79.379 kg HEIGHT 2021-08-13 23:00:00 172.7 cm WEIGHT 2021-08-13 23:00:00 79.379 kg Heart rate 2021-06-21 14:00:00 88 [facility] Respiratory rate 2021-06-21 14:00:00 13 /min [facility] Oxygen saturation in 2021-06-21 14:00:00 98 /min [facility] Arterial blood by [facility] Pulse oximetry Branch Systolic blood 2021-06-21 13:02:00 151 mm[Hg] Univer sity of pressure [facility] Diastolic blood 2021-06-21 13:02:00 75 mm[Hg] Unive rsity of [facility] Body temperature 2021-06-21 13:02:00 36.22 [facility] Body weight 2021-06-20 09:51:00 82.464 kg [facility] BMI 2021-06-20 09:51:00 27.64 kg/m2 [facility] Body height 2021-06-19 20:00:00 172.7 cm [facility] Procedures Procedure Date / Time Performing Source Performed Clinician PHACOEMULSIFICATION OF 2023-01-27 Antonio Crawford [facility] CATARACT WITH [facility]AUTOMATED) 2023-01-27 Antonio Crawford [facility] 14:35:00 [facility] POCT GLUCOSE (AUTOMATED) 2023-01-27 Antonio Crawford [facility] 14:35:00 [facility] DAY SURGERY - ADC 2023-01-27 Doctor Unassigned, [facility] 05:01:00 [facility] ASSIGNMENT OF BENEFITS 2023-01-18 Doctor Unassigned, [facility] 21:22:41 [facility] POCT GLUCOSE (AUTOMATED) 2021-06-21 Jose Jean [facility] 13:21:00 [facility] MAGNESIUM 2021-06-21 [facility] xa 10:35:00 [facility] OSMOLALITY URINE 2021-06-21 [facility] 10:35:00 [facility] RENAL PANEL 2021-06-21 [facility] x[facility] 10:35:00 [facility] ELECTROLYTES PANEL 2021-06-21 [facility] ([id number])(NA, K, CL, CO2) 10:35:00 [facility] POTASSIUM, URINE RANDOM 2021-06-21 Health system 10:35:00 [facility] SODIUM, URINE RANDOM 2021-06-21 [facility] 10:35:00 [facility] ELECTROLYTES PANEL 2021-06-21 [facility] ([id number])(NA, K, CL, CO2) 01:20:00 [facility] POCT GLUCOSE (AUTOMATED) 2021-06-21 Jose Jean [facility] 01:14:00 [facility] POCT GLUCOSE (AUTOMATED) [facility]06[facility]:05[facility] ELECTROLYTES PANEL 2021-06-20 [facility] ([id number])(NA, K, CL, CO2) 17:24:00 Medical Branch O[facility]OLALITY URINE [facility]06-[facility] POTASSIUM, URINE RANDOM 2021-06-20 Health system 10:13:00 [facility] SODIUM, URINE RANDOM 2021-06-20 [facility] 10:13:00 [facility] MAGNESIUM 2021-06-20 [facility] 10:12:00 [facility] VITAMIN B12, LEVEL 2021-06-20 [facility] 10:12:00 [facility] FOLATE 2021-06-20 [facility] 10:12:00 [facility] RENAL PANEL 2021-06-20 [facility] 10:12:00 [facility] VITAMIN D, 25-OH 2021-06-20 [facility] 10:12:00 [facility] ELECTROLYTES PANEL 2021-06-20 [facility] ([id number])(NA, K, CL, CO2) 03:25:00 [facility] Branch POCT GLUCOSE (AUTOMATED) 2021[facility]06-20 [facility] 02:30:00 [facility] POCT GLUCOSE (AUTOMATED) 2021-06-20 [facility] 01:12:00 Medical Branch POCT GLUCOSE (AUTOMATED) 2021-06-19 [facility] 22:34:00 Medical Branch ELECTROLYTES PANEL 2021-06-19 [facility] ([id number][facility]NA, K, CL, CO2) 21:21:00 Medical Branch POCT GLUCOSE (AUTOMATED) 2021-06-19 [facility] 16:58:00 [facility] Branch POCT GLUCOSE (AUTOMATED) 2021-06-19 [facility] 14:31:00 Medical Branch PHOSPHORUS 2021-06-19 [facility] 14:17:00 Medical Branch CREATINE KINASE 2021-06-19 [facility] 14:17:00 Medical Branch URIC ACID 2021-06-19 [facility] 14:17:00 [facility] Branch MAGNESIUM 2021-06-19 [facility] 14:17:00 Medical Branch FERRITIN SERUM 2021-06-19 Saul [facility] 14:17:00 Medical Branch OSMOLALITY, SERUM OR PLASMA 2021-06-19 Delvis [facility] 14:17:00 Medical Branch OSMOLALITY URINE 2021-06-19 Delvis [facility] 14:17:00 Medical Branch TROPONIN I 2021-06-19 [facility] 14:17:00 Medical Branch THYROID STIMULATING HORMONE 2021-06-19 Saul [facility] 14:17:00 Medical Branch COMP. METABOLIC PANEL ([id number]) 2021-06-19 Delvis [facility] 14:17:00 [facility] IRON PANEL 2021-06-19 Saul [facility] 14:17:00 Medical Branch DIFF CONSULT INTERPRETATION 2021-06-19 Saul Jose [facility] 14:17:00 Medical Branch CBC WITH DIFF 2021-06-19 [facility] 14:17:00 [facility] Branch GLYCOSYLATED HEMOGLOBIN (A1C) 2021-06-19 Jose Jean [facility] 14:17:00 [facility] URINALYSIS MICROSCOPIC 2021-06-19 Delvis [facility] 14:17:00 Medical Branch RETICULOCYTES AUTOMATED 2021-06-19 Jose Jean [facility] 14:17:00 [facility] N-TERMINAL PRO-BNP 2021-06-19 Delvis [facility] 14:17:00 Medical Branch POTASSIUM, URINE RANDOM 2021-06-[facility] 14:17:00 [facility] SODIUM, URINE RANDOM 2021-06-19 [facility] [place] 14:17:00 [facility] Branch PROTEIN CREAT RATIO URINE 2021-06-19 [facility] RANDOM 14:17:00 Medical Branch COVID-19 (ID NOW RAPID 2021-06-19 Michelle Edmondson [facility] TESTING) 14:17:00 Medical Branch LAB ONLY COVID INTERPRETATION 2021-06-19 [facility] 14:17:00 Medical Branch [facility] PATIENT FINANCIAL POLICY 2021-06-19 Doctor Unassigned, [facility] 13:01:56 [facility] NO SHOW OR MISSED APPOINTMENT 2021-06-19 Doctor Unassigned, [facility] POLICY ACKNOWLEDGEMENT 13:01:37 [facility] NOTICE OF PRIVACY PRACTICES 2021-06-19 Doctor Unassigned, [facility] 13:01:16 [facility] CONSENT/REFUSAL FOR DIAGNOSIS 2021-06-19 Doctor Unassigned, [facility] AND TREATMENT 13:01:02 [facility] ASSIGNMENT OF BENEFITS 2021-06-19 Doctor Unassfawn, [facility] 13:00:44 [facility] Plan of Care Planned Activity Planned Date Details Comments Source Future Scheduled 2024-08-[address] [facility] 00:00:00 (procedure) [code = [facility] Center 79780349] Future Scheduled 2023-05-[address] [facility] Test 00:00:00 (Season Ended) [code = [facility] Influenza Vaccine (Season Ended)] Future Scheduled 2023-02-28 [facility] Test 02:59:02 malignant neoplasm of colon (procedure) [code = 737535866] Future Scheduled 2023-02-28 [facility] Test 02:59:02 malignant neoplasm of colon (procedure) [code = 665894998] Future Scheduled 2023-02-28 [facility] Test 02:59:02 malignant neoplasm of colon (procedure) [code = 119441118] Future Scheduled 2023-02-28 Pneumococcal Vaccine: [facility] Test 02:59:02 Pediatrics (0 to 5 Years) and At-Risk Patients (6 to 64 Years) (1 - PCV) [code = Pneumococcal Vaccine: Pediatrics (0 to 5 Years) and At-Risk Patients (6 to 64 Years) (1 - PCV)] Future Scheduled 2023-02-28 Hepatitis C screening [facility] Test 02:59:02 (procedure) [code = 576230818] Future Scheduled 2023-02-28 Screening for [facility] Test 02:59:02 malignant neoplasm of colon (procedure) [code = 743651671] Future Scheduled 2023-02-28 Screening for [facility] Test 02:59:02 malignant neoplasm of colon (procedure) [code = 059609533] Future Scheduled 2023-02-28 SHINGLES VACCINES (1 Met [facility] Test 02:59:02 of 2) [code = SHINGLES VACCINES (1 of 2)] Future Scheduled 2023-02-28 COVID-19 VACCINE (5 - [facility] Test 02:59:02 Mixed Product series) [code = COVID-19 VACCINE (5 - Mixed Product series)] Future Scheduled 2023-02-28 INFLUENZA VACCINE Method [facility] Test 02:59:02 [code = INFLUENZA VACCINE] Diagnostic Test 2022-10-08 CBC w/ auto diff [code [facility] Pending 00:00:00 = CBC w/ auto diff] Diagnostic Test 2022-10-08 CMP, serum or plasma [facility] Pending 00:00:00 [code = CMP, serum or plasma] Diagnostic Test 2022-10-08 lipid panel, serum [facility] Pending 00:00:00 [code = lipid panel, serum] Diagnostic Test 2022-10-08 urinalysis, complete [facility] Pending 00:00:00 [code = urinalysis, complete] Diagnostic Test 2022-10-08 microalbumin/creatinin [facility] Pending 00:00:00 e, mass ratio, urine [code = microalbumin/creatinin e, mass ratio, urine] Diagnostic Test 2022-10-08 HbA1c (hemoglobin [facility] Pending 00:00:00 A1c), blood [code = HbA1c (hemoglobin A1c), blood] Diagnostic Test 2022-10-08 uric acid, serum or [facility] Pending 00:00:00 plasma [code = uric acid, serum or plasma] Diagnostic Test 2022-10-08 vitamin D, 25-hydroxy, [facility] Pending 00:00:00 total, serum [code = vitamin D, 25-hydroxy, total, serum] Diagnostic Test 2022-10-08 PSA, serum or plasma [facility] Pending 00:00:00 [code = PSA, serum or plasma] Future Scheduled 2022-09-[address] [facility] Test 00:00:00 (12+) [code = Medical Center DEPRESSION SCREENING (12+)] Future Scheduled 2022-08-[address] [facility] Test 00:00:00 Counseling and Medical Cente r Screening (12+) [code = Tobacco Cessation Counseling and Screening (12+)] Future Scheduled 2021-09-02 COVID-19 VACCINE (4 - [facility] 00:00:00 Booster for Pfizer Medical C enter series) [code = COVID-19 VACCINE (4 - Booster for Pfizer series)] Future Scheduled 2011 SHINGLES VACCINES ([address] [facility] Test 00:00:00 of 2) [code = SHINGLES Medic al Center VACCINES (1 of 2)] Future Scheduled 1980 DTAP/TDAP/TD VACCINES [facility] 00:00:00 (1 - Tdap) [code = Medical C enter DTAP/TDAP/TD VACCINES (1 - Tdap)] Future Scheduled 1979 HEPATITIS C [facility]CRE[facility]ING [facility] 00:00:00 [code = HEPATITIS C Medical Center SCREENING] Future Scheduled [address] [facility] 00:[facility]:00 malignant neoplasm of Medica l Center colon (procedure) [code = 252170045] Future Scheduled [address] [facility] 00:00:00 malignant neoplasm of Medica l Center colon (procedure) [code = 306437216] Future Scheduled [address] [facility] 00:00:00 malignant neoplasm of Medica l Center colon (procedure) [code = 429011040] Future Scheduled [address] [facility] 00:00:00 malignant neoplasm of Medica l Center colon (procedure) [code = 511334111] Future Scheduled 1961 Sigmoidoscopy [facility]] Medical Cente r Future Scheduled [address] [facility] 00:00:00 (combo) [code = CT Medical C enter Colonography (combo)] Encounters Start End Encounter Admission Attending Care Care Encounter Source Date/Time Date/Time Type Type Clinicians Facility Department ID 2021-07-15 Inpatient Ja JEAN MIADORE MONE [id number] [facility] 04:45:31 [facility] 2023-01-27 2023-01-27 Outpatient R [facility] OPH [id number] Univers 09:29:00 11:47:00 [facility] 2023-01-27 2023-01-27 [facility] [id number] Univers 09:29:00 11:47:00 Encounter Antonio BANKS 350.1.13.10 [place] [id number] [facility] 071 Branch 2023-01-27 2023-01-27 Surgery [facility] 1.2.840.114 [id number] Univers 10:06:00 10:45:00 Antonio BANKS 350.1.13.10 [place] [id number] [facility] 020 Branch 2023-01-27 2023-01-27 Orders Doctor HINTON 1.2.840.114 [id number] Univers 00:00:00 00:00:00 Only Unassigned, YOSELYN 350.1.13.10 ity of [place] [facility] 4.2.7.2.686 Naresh as [id number] [facility] 009 Branch 2023-01-18 2023-01-18 Orders Doctor HINTON 1.2.840.114 [id number] Univers 00:00:00 00:00:00 Only Unassigned, YOSELYN 350.1.13.10 ity of [place] [facility] 4.2.7.2.686 Naresh as [id number] [facility] 009 Branch 2022-10-17 2022-10-17 Outpatient GC_CPC_Walk PRIV PRIV 220 [id number] [facility] 00:00:00 00:00:00 InSchedaman [id number] [facility] 2022-10-08 2022-10-08 Outpatient GC_CPC_Walk PRIV PRIV 220 [id number] [facility] 00:00:00 00:00:00 InSchedul [id number] [facility] 2022-10-08 2022-10-08 Pablo [facility]IV [facility] 26 [facility] 00:00:00 00:00:00 [facility] Med ical HOME BUILDER: [id number] GC_CPC_Need [facility] 36, [place] [address] , Ph. 2022-03-24 2022-03-24 Outpatient GC_CPCN_Wal PRIV PRIV 220 [id number] [facility] 03:13:00 03:13:00 k-In [id number] Medica l 2022-03-24 2022-03-24 Outpatient Flores, PRIV PRIV [id number] 00:00:00 00:00:00 Pablo [id number] 2022-03-24 2022-03-24 Pablo [facility]IV [facility] 12 [facility] 00:00:00 00:00:00 [facility] Med ical HOME BUILDER: [id number] GC_CPCN_[facility] 36, Office* [place] [address] , Ph. 2021-09-24 2021-09-24 Inpatient OSMANY Barakat OUTD [id number] [facility] 05:04:00 05:04:00 Harpal 51 [facility] 2021-08-13 2021-08-15 Outpatient ER ADITYA [facility] Cardiology [id number] [facility] 22:46:00 14:50:00 MAHBOOB 2021-08-13 2021-08-13 Outpatient [facility] [id number] [facility] 00:00:00 23:59:00 Yumi Medicin e 2021-07-08 2021-07-08 Outpatient [facility] [id number] [place] 00:00:00 00:00:[address] 2021-06-23 2021-06-23 Transition Siva Cantu 1.2.840.114 [id number] Univers 00:00:00 00:00:00 of Care Pablo Davis 350.1.13.10 ity of [place] 4.2.7.2.686 [facility] [id number] [facility] 403 Branch 2021-06-19 2021-06-21 [facility] 1.2.840.114 [id number] [facility] 08:50:00 11:15:00 Encounter Jose Banks 350.1.13.10 ity of [place] 4.2.7.2.686 [facility] [id number] [facility] 080 Branch 2021-06-13 2021-06-13 Outpatient NAUTIYAL, [facility] [id number] [place] 00:00:00 00:00:00 KIRTAN 814 Method i 2021-05-16 2021-05-16 Outpatient NAUTIYAL, [facility] [id number] [place] 00:00:00 00:00:00 KIRTAN 336 Method i 2021-04-18 2021-04-18 Outpatient NAUTIYAL, [facility] [id number] [id number] [place] 00:00:00 00:00:00 KIRTAN 545 Method i 2021-03-21 2021-03-21 Outpatient NAUTIYAL, [facility] [id number] [place] 00:00:00 00:00:00 KIRTAN 979 Method i 2021-02-21 2021-02-21 Outpatient NAUTIYAL, [facility] 43703 [id number] [place] 00:00:00 00:00:00 KIRTAN 833 Method i 2021-01-17 2021-01-17 Outpatient NAUTIYAL, [facility] [id number] [place] 00:00:00 00:00:00 KIRTAN 710 Method i 2020-12-20 2020-12-20 Outpatient NAUTIYAL, [facility] 42704 [id number] [place] 00:00:00 00:00:00 KIRTAN 851 Method i 2020-12-12 2020-12-12 Outpatient ROBBEN, [facility] [id number] [place] 00:00:00 00:00:00 ED 061 Me thodi 2020-11-21 2020-11-21 Outpatient [facility] [id number] [place] 00:00:00 00:00:[address] 2020-11-15 2020-11-15 Outpatient NAUTIYAL, [facility] [id number] [place] 00:00:00 00:00:00 KIRTAN [address] 2020-10-11 2020-10-11 Outpatient NAUTIYAL, [facility] 93112 98300 [place] 00:00:00 00:00:00 KIRTAN [address] 2020-09-12 2020-09-12 Outpatient NAUTIYAL, [facility] 03546 [id number] [place] 00:00:00 00:00:00 KIRTAN [address] 2020-08-16 2020-08-16 Outpatient NAUTIYAL, [facility] 63939 [id number] [place] 00:00:00 00:00:00 KIRTAN [address] 2020-08-06 2020-08-06 Outpatient NAUTIYAL, [facility] [id number] [id number] [place] 00:00:00 00:00:00 KIRTAN [address] 2020-07-19 2020-07-19 Outpatient NAUTIYAL, [facility] 71171 [id number] [place] 00:00:00 00:00:00 KIRTAN [address] 2020-06-21 2020-06-21 Outpatient NAUTIYAL, [facility] [id number] [place] 00:00:00 00:00:00 KIRTAN [address] 2020-05-24 2020-05-24 Outpatient NAUTIYAL, [facility] [id number] [place] 00:00:00 00:00:00 KIRTAN [address] 2020-04-26 2020-04-26 Outpatient NAUTIYAL, [facility] [id number] [id number] [place] 00:00:00 00:00:00 KIRTAN [address] 2020-03-22 2020-03-22 Outpatient NAUTIYAL, [facility] [id number] [id number] [place] 00:00:00 00:00:00 KIRTAN [address] 2020-02-23 2020-02-23 Outpatient NAUTIYAL, [facility] [id number] [place] 00:00:00 00:00:00 KIRTAN [address] 2020-02-02 2020-02-02 Outpatient MIRA [facility] 07748 [id number] [place] 00:00:00 00:00:00 KIRTAN [address] 2020-01-26 2020-01-26 Outpatient MIRA [facility] [id number] [id number] [place] 00:00:00 00:00:00 KIRTAN [address] 2019-12-29 2019-12-29 Outpatient MIRA [facility] [id number] [place] 00:00:00 00:00:00 KIRTAN [address] 2019-11-24 2019-11-24 Outpatient MIRA [facility] [id number] [id number] [place] 00:00:00 00:00:00 KIRTAN [address] Results Test Description Test Time Test Comments Results Result Comments Source POCT GLUCOSE (AUTOMATED) 2023-01-27 14:37:19 Test Item Value Reference Range Interpretation Comme nts POCT GLU (test code = 1819697611) 138 mg/dL 70-110 H Lab Interpretation (test code = 66619-5) Abnormal [facility]2023-01-27 14:37:19 Test Item Value Reference Range Interpretation Comments POCT GLU (test code = 9551519892) 138 mg/dL 70-110 H Lab Interpretation (test code = Abnormal 01105-0) [facility] [id number] 14:48:00 Test Item Value Reference Range Interpretation Comments GLUCOSE BEDSIDE (test 143 MG/DL 70-110 H Perfor med by certified code = GLUBED) draw press operator at [facility] [id number] 14:20:00 Test Item Value Reference Range Interpretation Comments ACT-ISTAT (test code 249 SEC 74-137 H Perform ed by certified = ACTI) draw press operator at [facility] [id number] 14:20:00 Test Item Value Reference Range Interpretation Comments ACT-ISTAT (test code 243 SEC 74-137 H Perform ed by certified = ACTI) draw press operator at [facility] PROTHROMBIN [id number] 10:49:00 Test Item Value Reference Range Interpretation Comments PROTHROMBIN TIME 12.2 SECONDS 9.3-12.9 N PATIENT (test code = PTP) INTERNATIONAL NORMAL 1.1 0.8-1.2 N TARGET INR BY RATIO (test code = INDICATIO N Indication INR) INR1. Prophylax is of venous thrombos is 2.0 - 3.0 (orthoped ic surgery), Proph ylaxis of venous throm bosis (other than hig h-risk surgery), Treat ment of Deep Vein Thrombosis/Pulm onary Embolism, Preve ntion of systemic emb olism - Tissue heart va lves, Acute Myocardia l Infarction (to prevent systemic emboli sm), Valvular heart disease, Atrial Fibrillation, Bileaflet mecha nical valve in aortic position.2. Mec hanical prosthetic valv es (high risk), 2. 5 - 3.5 Presence of Lup us Anticoagulant o r Antiphospholipi d Antibodies, Pre vention of systemic emb olism - Acute Myocardia l Infarction (to prevent recurrent infar ct). BASIC METABOLIC [id number] 10:46:00 Test Item Value Reference Range Interpretation [...] 9.2 mg/dL 8.0-10.5 N CA) CBC W/AUTO [id number] 10:39:00 Test Item Value Reference Range Interpretation [...] 0.0-0.1 N NRBC#) - XR CHEST 2 [id number] 00:00:00 [facility] 1960 Sex: M FAX: Mike Mak MD [phone] [place]: St: PRE FAX: Harpal Marr MD [phone] Name: JULIO MARIE [facility] : 1960 Age/S: 61/[place] [address] [place] [address] Unit #: [id number] Loc: [place] [address] Phys: Harpal Jimenez MD Acct: [id number] Dis Date: Status: PRE [facility] PHONE #: [phone] Exam Danilo e: 09/23/2021 1115 FAX #: [phone] Reason: PREOP EXAMS: CPT CODE: [id number] XR CHEST 2 V 18078 PROCEDURE INFORMATION: Exam: XR Chest Exam date and time: 09/23/2021 10:43 AM Age: 61 years old Clinical indication: Screening exam; Pre- operative exam; Other: Preop TECHNIQUE: Imaging protocol: XR of the chest. Views: 2 views. PA and Lateral COMPARISON: No relevant prior studies available. FINDINGS: Lungs: No consolidation. Pleural spaces: No pleural effusion. Heart/Mediastinum: The heart and vascular markings are within limits of normal. Bones/joints: No gross acute findings. IMPRESSION: No acute cardiopulmonary findings at 1210 Reported and signed by: Nia Berrios D.O. CC: Mike Hill MD; Harpal Jimenez MD Technologist: ALESSANDRA Pepe) Trnscrd Date/Time/By: 09/23/2021 (1209) : By: [email or web address] Orig Print D/T: S: 09/23/2021 (1210) PAGE 1 Signed ReportPOCT-GLUCOSE [id number] 11:33:36 Test Item Value Reference Range Interpretation Comments POC-GLUCOSE METER 132 mg/dL 70-110 H : TESTED A T [facility] 6720 (BEAKER) (test code = [facility] Tanja [facility], 1538) 66889: Paper Cone Machine Operator/Techni doyle ID = [id number] for Anne Huitron POCT-GLUCOSE [id number] 06:03:47 Test Item Value Reference Range Interpretation Comments POC-GLUCOSE METER 121 mg/dL 70-110 H : TESTED A T [facility] 6720 (BEAKER) (test code = [facility] [employer] [facility], 1538) 95348: [employer] Cone Machine Operator/Techni doyle ID = [id number] for RENEE PEDRO BASIC METABOLIC [id number] 06:01:00 Test Item Value Reference Range Interpretation [...] S NOT APPLICABLE FOR DIALYSIS PATIEN TS. [employer] Machine Operator ID - JEAN CARLOS GPOCT-GLUCOSE [id number] 21:05:06 Test Item Value Reference Range Interpretation Comments POC-GLUCOSE METER 115 mg/dL 70-110 H : TESTED A T [facility] 6720 ([facility]) (test code = [facility], 1538) 88365: [employer] Cone Machine Operator/Techni doyle ID = [id number] for UG SHOLA DURANA POCT-GLUCOSE [id number] 19:02:49 Test Item Value Reference Range Interpretation Comments POC-GLUCOSE METER 144 mg/dL 70-110 H : TESTED A T [facility] 6720 ([facility]) (test code = [facility], 1538) 29195: [employer] Cone Machine Operator/Techni doyle ID = [id number] for Belen Miner POCT-GLUCOSE [id number] 16:51:49 Test Item Value Reference Range Interpretation Comments POC-GLUCOSE METER 185 mg/dL 70-110 H : TESTED A T [facility] 6720 [facility] (test code = [facility], 1538) 44790: [employer] Machine Operator/Techni doyle ID = [id number] for Re li, Adriana [facility], MULTI, PHARM, [id number] 15:15:00Unlisted Reason for Exam - Click Yes and Enter Reason Below->No [facility] : 1960 Sex: MFINAL REPORT PROCEDURE: MYOCARDIAL PERFUSION SPECT IMAGING (Rest/Stress)CPT CODE: 06343 INDICATION: CAD risk, intermediate risk, Chest pain [...] inferior mild severity defectWall Motion: NALV Volume: Normal.RVVolume: Normal. STRESS FINDINGS:HR: 99/min (61% of MPHR)BP: 155/69 mmHgPrelim. EKG: No ischemic douglas es.Symptoms: Chest DiscomfortPerfusion: Basal to mid inferior moderate [...] Mejia Verified Date/Time: 08/14/2021 15:15:39 Reading Location: [address] Reading Room GLOBIN [id number] 10:49:00 Test Item Value Reference Range Interpretation Comments HEMOGLOBIN A1C (LIVE) (test code = 5.5 % 4.3-6.1 368) POCT-GLUCOSE [id number] 09:34:32 Test Item Value Reference Range Interpretation Comments POC-GLUCOSE METER 145 mg/dL 70-110 H : TESTED A T [facility] 6720 (BEAKER) (test code = [place], 1538) 11766: [employer]one Machine Operator/Techni doyle ID = [id number] for ROSSI FISCHER HIGH SENSITIVITY TROPONIN [id number] 05:11:36 Test Item Value Reference Range Interpretation Comments HIGH SENSITIVITY 26 pg/ml See_Comment [Automated message] TROPONIN I (test code = The system which 4543405) generated this result transmitted ref erence range: <=35. Th e reference range was not used to int erpret this result as normal/abnormal . [employer] Machine Operator ID - GISELL MThe HEALTH DATA ANALYST STAT High Sensitivity Troponin-I results should be used in conjunction with other diagnostic information such as ECG, clinical observations and information, and patient symptoms to aid in the diagnosis of MT.LIPID [id number] 05:07:50 Test Item Value Reference Range Interpretation Comments TRIGLYCERIDES (BEAKER) (test code = 150 mg/dL 540) CHOLESTEROL (BEAKER) (test code = 104 mg/dL 631) HDL CHOLESTEROL (BEAKER) (test code 37 mg/dL = 976) LDL CHOLESTEROL CALCULATED (BEAKER) 37 mg/dL (test code = 633) Triglyceride Reference Range: Low Risk <150 Borderline 150-199 High Risk 200- 499 Very High Risk >=500Cholesterol Reference Range: Low Risk <200 Borderline 200-239 High Risk >240HDL Cholesterol Reference Range: Low Risk >=60 High Risk <40LDL Cholesterol Reference Range: Optimal <100 Near Optimal 100-129 Borderline 130-159 High 160-189 Very High >=190 [employer] Machine Operator ID - GISELL MBASIC METABOLIC [id number] 05:07:49 Test Item Value Reference Range Interpretation [...] S NOT APPLICABLE FOR DIALYSIS PATIEN TS. [employer] Machine Operator ID - GISELL [id number] 05:07:49 Test Item Value Reference Range Interpretation Comments MAGNESIUM (BEAKER) (test code = 2.2 mg/dL 1.6-2.6 627) [employer] Machine Operator ID - GISELL MCBC W/PLT COUNT & AUTO [id number] 04:44:58 Test Item Value Reference Range Interpretation [...] PERCENT (BEAKER) (test code = 2801) PROTHROMBIN [id number] 00:46:16 Test Item Value Reference Range Interpretation Comments PROTIME (BEAKER) 14.4 seconds 11.9-14.2 H (test code = 759) INR (BEAKER) (test 1.14 See_Comment [Automat ed message] code = 370) The system Vtrim generated this result transmitted ref erence range: <=5.90. The reference range was not used to int erpret this result as normal/abnormal . RECOMMENDED COUMADIN/WARFARIN INR THERAPY RANGESSTANDARD DOSE: 2.0 - 3.0 Includes: PROPHYLAXIS for venous thrombosis, systemic embolization; TREATMENT for venous thrombosis and/or pulmonary embolus.HIGH RISK: Target INR is 2.5-3.5 for patients with mechanical heart valves.SARS-COV2/RT-PCR ([facility]) 2021-08-14 00:26:40 Test Item Value Reference Range Interpretation Comments SARS-COV2/RT-PCR Negative Negative The SARS-Co V-2 target (test code = nucleic acids a re not 0027588) detected in thi s specimen. Negative result [...] This SARS CoV-2 test is a rapid, real-time RT-PC R test intended for th e qualitative detection [...] Food, Drug and Cosmetic Act, 21 U.S.C. 360bbb-3(b)(1), unless the authorization is terminated or revoked sooner. Fact Sheet for Healthcare Providers: https://www.LiveHotSpot m/Documents/Xpert%20Xpress%20SARS%20CoV-2/Fact%20Sheets/302-3802%11YGVK-JIN-0%20 HEALTHCARE%20PROVIDERS%20FACT%20SHEET.pdf Fact Sheet for Healthcare Patients: https://www.Lotour.com/Documents/Xpert%20Xp ress%20SARS%20CoV-2/Fact%20Sheets/302-3801%17KKXG-JAT-0%20PATIENT%20FACT%20SHEET .pdfRAD, CHEST, 1 VIEW, NON [id number] 00:12:00Reason for exam:->CPShould this be performed at the bedside?->Yes [facility] 1960 Sex: [...] clinically. There is no dense focal consolidation, pneumothorax,large pleural effusion or acute bony abnormality. Signed: Ravinder Patiño MDReport Verified Date/Time:08/14/2021 00:12:28 SENSITIVITY TROPONIN [id number] 23:42:44 Test Item Value Reference Range Interpretation Comments HIGH SENSITIVITY 38 pg/ml See_Comment H [Automated message] TROPONIN I (test code = The system which 8681970) generated this result transmitted ref erence range: <=35. Th e reference range was not used to int erpret this result as normal/abnormal . [employer] Cone Machine Operator ID - BSThe HEALTH DATA ANALYST STAT High Sensitivity Troponin-I results should be used in conjunctionwith other diagnostic information such as ECG, clinical observations and information, and patient symptoms to aid in the diagnosis of MT.PT/[id number] 23:37:54 Test Item Value Reference Range Interpretation [...] RANGESSTANDARD DOSE: 2.0 - 3.0 Includes: PROPHYLAXIS for venous thrombosis, systemic embolization; TREATMENT for venous thrombosis and/or pulmonary embolus.HIGH RISK: Target INR is 2.5-3.5 for patients with mechanical heart valves.COMPREHENSIVE METABOLIC PANEL 2021-08-13 23:36:03 Test Item Value Reference Range Interpretation [...] S NOT APPLICABLE FOR DIALYSIS PATIEN TS. [employer] Cone Machine Operator ID - BSCBC W/PLT COUNT & AUTO [id number] 23:13:22 Test Item Value Reference Range Interpretation [...] Interpretation Comments POCT GLU (test code = 9445579227) 99 mg/dL 70-110 Lab Interpretation (test code = Normal 85814-1) [facility]2021-[facility]-09 12:40:16 Test Item Value Reference Range Interpretation Comments MAGNESIUM (test code = 6864412558) 2.3 mg/dL 1.7-2.4 Lab Interpretation (test code = Normal 48598-7) [facility]RE[facility] [id number] 12:40:15 Test Item Value Reference Range Interpretation Comments ALBUMIN (test code = 3.6 g/dL 3.5-5.0 4816733635) CALCIUM (test code = 8.9 mg/dL 8.6-10.6 8849628610) CO2 TOTAL (test code = 23 mmol/L 23-31 9195462709) CREATININE (test code = 1.36 mg/dL 0.60-1.25 H 4327871990) GLUCOSE (test code = 87 mg/dL 70-110 7173426028) K (test code = 4.2 mmol/L 3.5-5.0 9168242604) NA (test code = 135 mmol/L 135-145 8194411002) BUN (test code = 34 mg/dL 7-23 H 3570843368) PHOSPHORUS (test code = 3.9 mg/dL 2.5-5.0 9224507306) eGFR (test code = mL/min/1.73m2 9138590961) ALYSIA (test code = ALYSIA) Association of [...] tests). Lab Interpretation Abnormal (test code = 49187-9) [facility] Lake[facility]LECTROLYTES PANEL (57975)(NA, K, CL, CO2) 2021-06-21 12:39:35 Test Item Value Reference Range Interpretation Comments NA (test code = 2936444021) 135 mmol/L 135-145 K (test code = 7604813648) 4.2 mmol/L 3.5-5.0 CL (test code = 4203562292) 107 mmol/L 98-108 CO2 TOTAL (test code = 3793176840) 23 mmol/L 23-31 AGAP (test code = 1192328440) 2-16 Lab Interpretation (test code = Normal 31568-1) [facility] Lake[facility]LECTROLYTES PANEL (16271)(NA, K, CL, CO2) 2021-06-21 02:05:41 Test Item Value Reference Range Interpretation Comments NA (test code = 2186156093) 130 mmol/L 135-145 L K (test code = 2474730824) 4.2 mmol/L 3.5-5.0 CL (test code = 9536384462) 99 mmol/L 98-108 CO2 TOTAL (test code = 9853352151) 23 mmol/L 23-31 AGAP (test code = 8429302531) 2-16 Lab Interpretation (test code = Abnormal 60972-0) [facility] GLUCOSE (AUTOMATED)2021-06-21 01:32:17 Test Item Value Reference Range Interpretation Comments POCT GLU (test code = 4887722073) 163 mg/dL 70-110 H Lab Interpretation (test code = Abnormal 95970-1) [facility] GLUCOSE (AUTOMATED)2021-06-21 01:32:11 Test Item Value Reference Range Interpretation Comments POCT GLU (test code = 2824008473) 111 mg/dL 70-110 H Lab Interpretation (test code = Abnormal 21913-3) [facility] LakeDIFF CONSULT [id number] 19:50:07 ABSOLUTE LYMPHOPENIA. NORMOCYTIC NORMOCHROMIC ANEMIA. PLATELETS ARE UNREMARKABLE.[facility] Lake[facility]ITAMIN B12, [id number] 19:49:05 Test Item Value Reference Range Interpretation Comments VIT B12 (test code = 687 pg/mL 240-930 2607927625) ALYSIA (test code = ALYSIA) Biotin has been reported to cause a positive bias, interpret results relative to patient's use of biotin. Lab Interpretation (test Normal code = 47079-5) [facility] Lake[facility]IT[facility] D, [id number] 19:16:59 Test Item Value Reference Range Interpretation Comments VIT D 25OH (test code = 17 ng/mL 25-80 L 86844-3) ALYSIA (test code = ALYSIA) Deficiency: <20 ng/mLInsufficiency: 20-24 ng/mLOptimal: 25-80 ng/mL Lab Interpretation (test Abnormal code = 37828-4) [facility] LakeELECTROLYTES PANEL (58399)(NA, K, CL, CO2) 2021-06-20 18:30:32 Test Item Value Reference Range Interpretation Comments NA (test code = 7840348075) 127 mmol/L 135-145 L K (test code = 9591844956) 4.4 mmol/L 3.5-5.0 CL (test code = 1228277031) 97 mmol/L 98-108 L CO2 TOTAL (test code = 0808704836) 20 mmol/L 23-31 L AGAP (test code = 6958973306) 2-16 Lab Interpretation (test code = Abnormal 06239-5) [facility] GLU[facility] (AUTOMATED)2021-06-20 18:02:33 Test Item Value Reference Range Interpretation Comments POCT GLU (test code = 3505868142) 118 mg/dL 70-110 H Lab Interpretation (test code = Abnormal 77063-1) [facility] (AUTOMATED)2021-06-20 18:02:33 Test Item Value Reference Range Interpretation Comments POCT GLU (test code = 5093329353) 181 mg/dL 70-110 H Lab Interpretation (test code = Abnormal 76686-9) [facility] LakeFOLATE2021-10-08 16:36:31 Test Item Value Reference Range Interpretation Comments FOLATE SER (test code = >20.0 3.0-20.0 H Biot in has been 7150195113) reported to cau se a positive bias, interpret resul ts relative to patient's use o f biotin. Lab Interpretation (test Abnormal code = 28892-1) [facility]RENAL [id number] 12:37:06 Test Item Value Reference Range Interpretation Comments ALBUMIN (test code = 3.8 g/dL 3.5-5.0 2106248725) CALCIUM (test code = 8.7 mg/dL 8.6-10.6 9850385909) CO2 TOTAL (test code = 20 mmol/L 23-31 L 5116687154) CREATININE (test code = 1.64 mg/dL 0.60-1.25 H 8340308526) GLUCOSE (test code = 82 mg/dL 70-110 5103931840) K (test code = 4.1 mmol/L 3.5-5.0 2665413903) NA (test code = 126 mmol/L 135-145 L 1686073785) BUN (test code = 43 mg/dL 7-23 H 4655707078) PHOSPHORUS (test code = 4.2 mg/dL 2.5-5.0 2451623418) eGFR (test code = mL/min/1.73m2 7535471068) ALYSIA (test code = ALYSIA) Association of [...] tests). Lab Interpretation Abnormal (test code = 20404-7) [facility]2021-10-08 12:37:06 Test Item Value Reference Range Interpretation Comments MAGNESIUM (test code = 5596050816) 2.3 mg/dL 1.7-2.4 Lab Interpretation (test code = Normal 93592-5) [facility] GLUCOSE (AUTOMATED)2021-06-20 12:01:50 Test Item Value Reference Range Interpretation Comments POCT GLU (test code = 7199184732) 114 mg/dL 70-110 H Lab Interpretation (test code = Abnormal 55219-8) [facility] GLUCOSE (AUTOMATED)2021-06-20 04:48:58 Test Item Value Reference Range Interpretation Comments POCT GLU (test code = 8673235874) 137 mg/dL 70-110 H Lab Interpretation (test code = Abnormal 55447-2) [facility] LakeELECTROLYTES PANEL (42466)(NA, K, CL, CO2) 2021-06-20 04:41:11 Test Item Value Reference Range Interpretation Comments NA (test code = 6544759839) 122 mmol/L 135-145 L K (test code = 0723607483) 4.0 mmol/L 3.5-5.0 CL (test code = 9378082705) 94 mmol/L 98-108 L CO2 TOTAL (test code = 6169301253) 20 mmol/L 23-31 L AGAP (test code = 1621754133) 2-16 Lab Interpretation (test code = Abnormal 35757-0) [facility] GLUCOSE (AUTOMATED)2021-06-20 02:04:20 Test Item Value Reference Range Interpretation Comments POCT GLU (test code = 4019061411) 166 mg/dL 70-110 H Lab Interpretation (test code = Abnormal 85587-1) [facility]LECTROLY[facility] PANEL (67464)(NA, K, CL, CO2) 2021-06-19 22:21:27 Test Item Value Reference Range Interpretation Comments NA (test code = 0519808638) 120 mmol/L 135-145 L K (test code = 4353723252) 4.3 mmol/L 3.5-5.0 CL (test code = 9284850202) 90 mmol/L 98-108 L CO2 TOTAL (test code = 2006441165) 22 mmol/L 23-31 L AGAP (test code = 4842371827) 2-16 Lab Interpretation (test code = Abnormal 19830-9) [facility] LakeOSMOLALITY, SERUM OR [id number] 20:32:51 Test Item Value Reference Range Interpretation Comments OSMOLALITY (test code = See_Comment L [Au tomated message] 7626001258) The system Vtrim generated this result transmitted ref erence range: 278 - 30 5 mOsm/kg. The reference range was not used to int erpret this result as normal/abnormal . Lab Interpretation (test Abnormal code = 73895-8) [facility] LakeRETICULOCYTES [id number] 18:52:41 Test Item Value Reference Range Interpretation Comments RETIC Count Automated 4.16 % 0.59-2.24 H (test code = 9797994777) RETIC Absolute Count See_Comment H [Autom ated message] (test code = 3860991635) The system which generated this result transmitted ref erence range: 0.0260 - 0.1170 10*6/?L. The reference range was not used to int erpret this result as normal/abnormal . IRF % (test code = 24.00 % 2.00-19.10 H 9802777529) RETIC-HE (test code = 35.8 pg 27.3-36.4 5281319091) Lab Interpretation (test Abnormal code = 58367-8) [facility] LakeFERRITIN [id number] 18:12:11 Test Item Value Reference Range Interpretation Comments FERRITIN (test code = 245.0 ng/mL 18.0-464.0 4098237313) ALYSIA (test code = ALYSIA) Biotin has been reported to cause a negative bias, interpret results relative to patient's use of biotin. Lab Interpretation (test Normal code = 62566-5) [facility] LakeTHYROID STIMULATING [id number] 18:07:51 Test Item Value Reference Range Interpretation Comments TSH (test code = See_Comment [Automated message] 7463797443) The system Vtrim generated this result transmitted ref erence range: 0.45 - 4 .70 mIU/L. The refe rence range was not u sed to interpret this result as normal/abnor mal. Lab Interpretation (test Normal code = 39732-1) [facility] LakeIRON [id number] 17:46:47 Test Item Value Reference Range Interpretation Comments IRON (test code = 5083899931) 38 ug/dL 50-160 L TIBC (test code = 5912252683) 320 ug/dL 250-410 % FE SAT (test code = 1386511351) 12 % 20-50 L Lab Interpretation (test code = Abnormal 77227-5) [facility] LakeCREATINE [id number] 17:37:28 Test Item Value Reference Range Interpretation Comments CK (test code = 0543282978) 204 U/L 33-194 H Lab Interpretation (test code = Abnormal 10928-1) [facility] LakeGlycosylated Hemoglobin (A1C)2021-06-19 15:28:01 Test Item Value Reference Range Interpretation Comments HGB A1C (test code = 5.5 % 4.0-5.7 4548-4) ALYSIA (test code = ALYSIA) Reference RangesNormal: <5.7%Prediabetes: 5.7 - 6.4%Diabetes: > 6.5% Lab Interpretation (test Normal code = 67672-1) [facility] LakeTROPONIN [id number] 15:23:11 Test Item Value Reference Interpretation Comments Range TROPONIN I (test 0.006 ng/mL See_Comment [Automated code = 1123147247) message] The system which generated this result [...] biotin. Lab Interpretation Normal (test code = 49794-9) [facility] LakeN-TERMINAL [id number] 15:19:46 Test Item Value Reference Range Interpretation Comments NT-proBNP (test code 610 pg/mL See_Comment H [Autom ated = 5839343863) message] The system which generated this result transmitted reference range : <=125. The reference range was not used to interpret this result as normal/abnormal . ALYSIA (test code = ALYSIA) Biotin has been reported to cause a negative bias, interpret results relative to patient's use of biotin. Lab Interpretation Abnormal (test code = 25091-6) [facility] LakeMAGNESIUM2021-10-07 15:12:30 Test Item Value Reference Range Interpretation Comments MAGNESIUM (test code = 0795025582) 2.2 mg/dL 1.7-2.4 Lab Interpretation (test code = Normal 20223-3) [facility] LakeCOMP. METABOLIC PANEL (12638)2021-06-19 15:12:25 Test Item Value Reference Range Interpretation Comments NA (test code = 120 mmol/L 135-145 L 3033254150) K (test code = 4.3 mmol/L 3.5-5.0 4506919217) CL (test code = 87 mmol/L 98-108 L 3584916974) CO2 TOTAL (test code = 22 mmol/L 23-31 L 1479484131) AGAP (test code = 2-16 5161075856) BUN (test code = 47 mg/dL 7-23 H 4871314158) GLUCOSE (test code = 110 mg/dL 70-110 1891149107) CREATININE (test code = 1.74 mg/dL 0.60-1.25 H 1546514602) TOTAL BILI (test code = 0.6 mg/dL 0.1-1.3 8853952758) CALCIUM (test code = 9.3 mg/dL 8.6-10.6 0501597884) T PROTEIN (test code = 7.2 g/dL 6.3-8.2 7229622349) ALBUMIN (test code = 4.6 g/dL 3.5-5.0 0186895584) ALK PHOS (test code = 99 U/L 34-122 5738933409) ALTv (test code = 48 U/L 5-50 1742-6) AST(SGOT) (test code = 39 U/L 13-40 3169131005) eGFR (test code = mL/min/1.73m2 6220911386) ALYSIA (test code = ALYSIA) Association of [...] tests). Lab Interpretation Abnormal (test code = 87657-3) [facility] LakePHOSPHORUS2021-10-07 15:12:04 Test Item Value Reference Range Interpretation Comments PHOSPHORUS (test code = 2571696253) 4.4 mg/dL 2.5-5.0 Lab Interpretation (test code = Normal 20974-1) [facility] LakeURIC [id number] 15:12:04 Test Item Value Reference Range Interpretation Comments URIC ACID (test code = 8591470917) 9.8 mg/dL 3.6-8.0 H Lab Interpretation (test code = Abnormal 04035-5) [facility] WITH [id number] 14:38:02 Test Item Value Reference Range Interpretation [...] RDW-SD (test code = 38.5 fL 38.5-51.6 14977-1) RDW-CV (test code = 12.1 % 12.1-15.4 788-0) PLT (test code = See_Comment [Automated 777-3) message] The sy stem which generated this result transmitted reference range : 150 - 328 10*3/ ?L. The reference r kathe was not used to interpret this result as normal/abnormal . MPV (test code = 10.0 fL 9.8-13.0 55792-8) NRBC/100 WBC (test See_Comment [Automat ed code = 4253204189) message] The system which generated this result transmitted reference range : 0.0 - 10.0 /100 WBCs. The refer ence range was not u sed to interpret th is result as normal/abnormal . NRBC x10^3 (test code <0.01 See_Comment [Auto mated = 9428120433) message] The s ystem which generated this result transmitted reference range : 10*3/?L. The reference range was not used to interpret this result as normal/abnormal . GRAN MAT (NEUT) % 71.7 % (test code = 770-8) IMM GRAN % (test code 0.60 % = 7264896415) LYMPH % (test code = 12.4 % 736-9) MONO % (test code = 12.1 % 5905-5) EOS % (test code = 2.7 % 713-8) BASO % (test code = 0.5 % 706-2) GRAN MAT x10^3(ANC) 4.44 10*3/uL 1.99-6.95 (test code = 3626642778) IMM GRAN x10^3 (test 0.04 10*3/uL 0.00-0.06 code = 7519814979) LYMPH x10^3 (test code 0.77 10*3/uL 1.09-3.23 L = 731-0) MONO x10^3 (test code 0.75 10*3/uL 0.36-1.02 = 742-7) EOS x10^3 (test code = 0.17 10*3/uL 0.06-0.53 711-2) BASO x10^3 (test code 0.03 10*3/uL 0.01-0.09 = 704-7) Lab Interpretation Abnormal (test code = 46312-2) [facility] [id number] 11:32:00Surgical Pathology Report Case: [id number] Authorizing Provider: Abran Berrios MD Collected: 02/03/2017 0845 Ordering Location: [facility] Diagnostic Imaging Received: 02/03/2017 0915 Pathologist: Logan Pedroza MD Specimen: Renal, Left KIDNEY, NEEDLE CORE BIOPSIES:- FOCAL GLOBAL AND NODULAR DIABETIC GLOMERULOSCLEROSIS [...] class III (see reference). No immune mediated glomerulonephritis is seen based on negative immunofluorescence and absence of electron dense deposits on ultrastructural evaluation. Clinical correlation is r ecommended.Reference: Shreyas Busby. et al. Pathologic classification of diabetic nephropathy. J Am Soc Nephrol 21:556-563, 2009.64479, 93008 x3, 96646, 90576 x7, 18653Kztmkakgtce, DM and serum creatinine 1.3 to 1.4Left kidneyThe specimen is received in saline and consists of two white-irvin tissue cores each measuring 1.5 cm in length and 0.1 cm in diameter. One of the tissue cores is bisected and submitted into glutaraldehyde and PBS solution respectively. The other tissue core is submitted into formalin. /JAZMYN Moore, BIOPSY FOR INTRAOPERATIVE GROSS ASSESSMENT: - ADEQUATE GLOMERULI IDENTIFIEDWITHIN TWO TISSUE CORESLIGHT MICROSCOPY: Sections show single [...] lymphocytes involving about 20%-30% of renal cortex. Non-at rophic proximal tubules are focally ectatic with loss [...] diffuse, glomerular and tubular basement membrane, weak.IgA: negativein glomeruliIgG: no significant glomerular, tubulointerstitial or vascular staining. IgM: focal, segmental, amorphous/entrapment, 1+. C3: focal mesangial staining of sclerosed glomerulus, focal arteriolar staining. C1q: no significant glomerular, tubulointerstitial or vascular staining. Fibrinogen: diffuse, glomerular and tubulointerstitial, weak.[place]: negative glomeruli; rare small tubular casts are positiveLambda: negative glomeruli; rare small tubular casts are positiveAll polyclonal antibodies used for immunofluorescence staining have been previously tested and shown to have appropriate reactivities with positive control specimens. Diagnostic Electron Microscopy:Thick section histology: Toluidine blue-stained sections reveal three non-obsolescent glomeruli, one of which shows ischemic changes and one globally sclerosed glomerulus. All the three open glomeruli are examined ultrastructurally.Ultrastructure: Examination of the glomerular ultrastructure reveals that the glomerular basement membrane is diffusely thickened generally measuring up to approximately 889 nm (normal adult male average = 230 - 430 nm; Tasiha Hernandez, Arch Pathol Lab Med 133:224-232). The mesangial matrix is markedly expanded. Focal mesangial hypercellularity is present. Subendothelial, subepithelial, and mesangial/paramesangial electron- dense, immune complex-type deposits are not present. Focal hyaline deposition is noted. Podocyte foot processes are segmentally effaced. Tubular basement membranes are thickened.POCT-GLUCOSE [id number] 09:15:00 Test Item Value Reference Range Interpretation Comments POC-GLUCOSE METER 140 mg/dL 70-110 H TESTED AT [address] ([facility]) (test code [facility] [place] = 1538) [address] PT/[id number] 07:43:00 Test Item Value Reference Range Interpretation Comments PROTIME ([facility]) (test code = 10.2 seconds 9.3-12.0 759) INR ([facility]) (test code = 370) 1.0 <=5.9 PARTIAL THROMBOPLASTIN TIME 25.9 seconds 23.0-35.0 ([facility]) (test code = 760) RECOMMENDED COUMADIN/WARFARIN INR THERAPY RANGESSTANDARD DOSE: 2.0 - 3.0 Includes: PROPHYLAXIS for venous thrombosis, systemic embolization; TREATMENT for venous thrombosis and/or pulmonary embolus.HIGH RISK: Target INR is 2.5-3.5 for patients with mechanical heart valves.CBC W/PLT COUNT & AUTO [id number] 07:39:00 Test Item Value Reference Range Interpretation [...] L 0.00-0.20 (test code = 417) POCT-GLUCOSE [id number] 07:26:00 Test Item Value Reference Range Interpretation Comments POC-GLUCOSE METER 136 mg/dL 70-110 H TESTED AT [address] (test code [facility] [place] = 1538) [address] Notes Date/Time Note Provider Source 2021-09-24 14:36:00-00:00 [id number] [address] PATIENT NAME: JULIO MARIE ADMIT DATE: ACCOUNT NO: [id number] ROOM NO: AGE: 61 REPORT TYPE: eELECTROCARDIOGRAM REPORT SEX: M ADMITTING PHYSICIAN: ATTENDING PHYSICIAN:Harpal Jimenez MD Order: [id number] Test Reason : POST PCI Test Date/Time Stamp: WedSep 24 2021 14:36:39 Blood Pressure : / mmHG Vent. Rate : 086 BPM Atrial Rate : 086 BPM P-R Int : 180 ms QRS Dur : 084 ms QT Int : 374 ms P-R-T Axes : 065 080 247 degree s QTc Int : 447 ms Normal sinus rhythm Nonspecific T wave abnormality Abnormal ECG When compared with ECG of 23-SEP-2021 10:05, Significant changes have occurred Confirmed by MARYURI FRANCIS MD ([id number]) on 09/24/19 6:13:24 PM Referred By: Harpal Jimenez Confirmed by:MARYURI MORA MD at 1813 PATIENT NAME: JULIO MARIE 9951 2021-09-24 14:17:00-00:00 [id number] [address] PATIENT NAME: JULIO MARIE ADMIT DATE: ACCOUNT NO: [id number] ROOM NO: AGE: 61 REPORT TYPE: OPERATIVE REPORT SEX: M ADMITTING PHYSICIAN: ATTENDING PHYSICIAN:Harpal Jimenez MD OPERATION DATE: 09/24/2021 PROCEDURES PERFORMED: Shockwave lithotripsy of o stial right coronary artery stent in-stent restenosis fo llowed by balloon angioplasty using a 4.0 x 12 mm NC balloon. PREOPERATIVE DIAGNOSIS: POSTOPERATIVE DIAGNOSIS: SURGEON: Harpal Jimenez MD PRINT DEVELOPER: ANESTHESIA: ACCESS: Right radial artery, 6-Northern Irish closed wit h TR band. INDICATIONS: Typical angina with positive stress test. COMPLICATIONS: None. BLEEDING: Less than 10 mL. DESCRIPTION OF PROCEDURE: After risks an d benefits were explained, the patient agreed to proceed and signed informed consent. The patient was brought into the cardiac catheterization [facility], prepped and draped in usual sterile fashion. We used Fentanyl and Versed in incremen marina doses to achieve adequate sedation and then we accessed right radial artery using p ediatric micropuncture kit, placed a 6-Northern Irish slender sheath and then took a 6-Northern Irish JR4 guide into the aortic root and engaged the right coronary arter y and I took short Runthrough wire into the RCA and placed it distally, took a 3.5 mm Shockwave balloon and did lithotripsy and then postdilated using 4.0 x 12 NC balloon and then did IVUS. IVUS showed a lumen of 11.2 mm and good ex pansion of the stent, results were satisfactory. Angiogram was satisfactory, then removed the catheter and the sheath and placed a TR band with good hemost asis. CONCLUSION: IVUS-guided balloon angioplasty and a shockwave lithotripsy of ostial RCA ISR. PLAN: Continue aspirin, Plavix, high-dose statin . Dictated By: Harpal Jimenez MD PATIENT NAME: JULIO MARIE 9951 WT: OP:HÉCTOR/GIN/TOMMY Conf#: [id number]#: [id number] Authenticated by Harpal Jimenez MD On 10/22/2021 12:29:35 PM Electronically Signed by Harpal Jimenez MD on at 1229 PATIENT NAME: JULIO MARIE 9951 2021-09-23 10:05:00-00:00 [id number] [place] [address] PATIENT NAME: JULIO MARIE ADMIT DATE: ACCOUNT NO: [id number] ROOM NO: AGE: 61 REPORT TYPE: eELECTROCARDIOGRAM REPORT SEX: M ADMITTING PHYSICIAN: ATTENDING PHYSICIAN:Harpal Jimenez MD Order: [id number] Test Reason : PREOP Test Date/Time Stamp: WedSep 23 2021 10:05:09 Blood Pressure : / mmHG Vent. Rate : 080 BPM Atrial Rate : 080 BPM P-R Int : 180 ms QRS Dur : 088 ms QT Int : 388 ms P-R-T Axes : 058 083 -43 degree s QTc Int : 447 ms Normal sinus rhythm Left ventricular hypertrophy with repolarization abnormality ST elevation, consider lateral injury or acute i nfarct Abnormal ECG No previous ECGs available Confirmed by MARYURI FRANCIS MD ([id number]) on 09/23/19 1:04:41 PM Referred By: Harpal Jimenez Confirmed by:MARYURI MORA MD at 1304 PATIENT NAME: JULIO MARIE 9951"
[2023-03-11 14:56] LABS: Absolute Lymphocytes (CBC) 0.6 K/uL (0.7-4.9); Hematocrit 25.8 % (39.6-49.0); Lymphocytes % 15.7 % (15.3-44.8); MCV 97.6 fL (80-100); RBC Red Blood Cell Count 2.65 M/uL (4.33-5.43)
[2023-03-11] MEDS ORDERED: NA CHLORIDE 0.9% 1,000 ML ONE (14:57)
[2023-03-11] MEDS ORDERED: ASPIRIN 81 MG CHEWABLE TABLET ONE (14:57)
[2023-03-11] MEDS ORDERED: NITROGLYCERIN 1 GM PKT TD ONE (14:57)
[2023-03-11 15:12] LABS: ALT/SGPT 51 U/L (16-61); AST/SGOT 25 U/L (15-37); Albumin 4.2 g/dL (3.4-5.0); Alkaline Phosphatase 146 U/L (45-117); BUN Blood Urea Nitrogen 50 mg/dL (7-18); Bicarbonate 21 mEq/L (21-32); Bilirubin Direct < 0.1 mg/dL (0-0.2); Bilirubin Indirect, Calculated ND mg/dL (0.2-0.8); Bilirubin Total 0.3 mg/dL (0.2-1.0); Glomerular Filtration Rate 34 ml/min (=/>90); Glucose Level 223 mg/dL (74-106); NT PRO-BNP 783 pg/mL (<125); Potassium 4.7 mEq/L (3.5-5.1); Protein, Total 7.7 g/dL (6.4-8.2); Sodium Level 131 mEq/L (136-145); Troponin High Sensitivity 14.7 pg/mL (<58.9)
--- NOTE | 2023-03-11 15:38 | RAD REPORT ---
[facility] CLINICAL HISTORY: CHEST PAIN COMPARISON: Chest Single View dated 03/25/2022; Chest Single View dated 03/09/2022; Chest Single View dated 11/14/2021; Chest Single View dated 08/30/2021 TECHNIQUE: Portable AP view of the chest. FINDINGS: The lungs are clear. No pneumothorax or effusion. Stable mild cardiomegaly. Mediastinal c ontours are unremarkable. IMPRESSION: No acute pulmonary process. Stable mild cardiomegaly.
[2023-03-11 15:43] LABS: Protime INR 0.82
--- NOTE | 2023-03-11 16:36 | EDPHYS ---
Physician Documentation [facility] Name: Ivan Parra Age: 62 yrs Sex: Male : 1960 Arrival Date: 03/11/2023 Time: 14:20 Bed 2 Private MD: ED Physician Isak Smith HPI: 03/11 14:38 This 62 yrs old Male presents to ER via Unassigned with complaints of Chest jr11 Pain. 14:38 The patient or guardian reports chest pain that is located primarily in the substernal jr11 area. Onset: today. The pain does not radiate. Associated signs and symptoms: Pertinent negatives: abdominal pain, headache, vomiting. The chest pain is described as aching, dull, a heaviness. Duration: The patient or guardian reports a single episode, that is still ongoing. Modifying factors: The symptoms are alleviated by NTG, the symptoms are aggravated by nothing. Severity of pain: At its worst the pain was moderate in the emergency department the pain is unchanged. last stent 08/03. Historical: - Allergies: 14:42 No Known Allergies; nj1 - Home Meds: 18:40 amlodipine 10 mg tablet daily [Active]; aspirin 81 mg Oral tablet,chewable daily iw [Active]; atorvastatin 40 mg oral tablet daily [Active]; carvedilol 25 mg oral tablet 2 times per day [Active]; clopidogrel 75 mg oral tablet daily [Active]; febuxostat 40 mg oral tablet daily [Active]; fluticasone propionate 50 mcg/actuation intranasal spray, suspension daily [Active]; glimepiride 4 mg Oral tablet daily [Active]; icosapent ethyl 1 gram oral capsule once [Active]; isosorbide mononitrate 60 mg Oral Tablet, Extended Release 24 hr daily [Active]; nitroglycerin 0.4 mg SL Tablet, Sublingual once [Active]; omeprazole 40 mg Oral capsule,delayed release (e.c.) daily [Active]; rosuvastatin 40 mg oral tablet daily [Active]; - PMHx: 14:23 angina pectoris; diabetes mellitus; Hypertensive disorder; kidney disease; Myocardial ll1 infarction; - PSHx: 14:23 cardiac stents; ll1 - Immunization history:: Adult Immunizations up to date. - Social history:: Smoking status: Patient denies any tobacco usage or history of. ROS: 14:38 All other systems are negative. jr11 Exam: 14:38 Constitutional: This is a well developed, well nourished patient who is awake, alert, jr11 and in no acute distress. Head/Face: Normocephalic, atraumatic. Neck: Trachea midline, no thyromegaly or masses palpated, and no cervical lymphadenopathy. Supple, full range of motion without nuchal rigidity, or vertebral point tenderness. No Meningismus. Chest/axilla: Normal chest wall appearance and motion. Nontender with no deformity. No lesions are appreciated. Cardiovascular: Regular rate and rhythm with a normal S1 and S2. No gallops, murmurs, or rubs. Normal PMI, no JVD. No pulse deficits. Respiratory: Lungs have equal breath sounds bilaterally, clear to auscultation and percussion. No rales, rhonchi or wheezes noted. No increased work of breathing, no retractions or nasal flaring. Abdomen/GI: Soft, non-tender, with normal bowel sounds. No distension or tympany. No guarding or rebound. No evidence of tenderness throughout. Skin: Warm, dry with normal turgor. Normal color with no rashes, no lesions, and no evidence of cellulitis. MS/ Extremity: Pulses equal, no cyanosis. Neurovascular intact. Full, normal range of motion. Vital Signs: 14:22 BP 173 / 78; Pulse 78; Resp 18; Temp 98.1; Pulse Ox 100% on R/A; Weight 74.39 kg; nj1 Height 5 ft. 8 in. ; Pain 7/10; 14:44 BP 160 / 74; Pulse 74; Resp 16 S; Pulse Ox 100% on R/A; iw 15:12 BP 152 / 78; Pulse 74; Resp 16; Pulse Ox 100% on R/A; iw 16:40 BP 167 / 80; Pulse 72; Resp 16; Pulse Ox 100% on R/A; iw 17:45 BP 169 / 83; Pulse 72; Resp 16; Pulse Ox 100% on R/A; iw 14:22 Body Mass Index 24.94 (74.39 kg, 172.72 cm) [facility] 14:22 Pain Scale: Adult [facility] MDM: 14:23 Patient medically screened. [facility] 14:38 Differential diagnosis: abnormal EKG, coronary artery disease congestive heart failure jr11 esophagitis, stable angina, unstable angina. HEART Score: History: Moderately Suspicious (1), ECG: Normal (0), Age: > 45 and < 65 years (1), Risk Factors: > or = 3 Risk factors for atherosclerotic disease (2), [Hypercholesterolemia] [Hypertension] [DM] [Obesity] Troponin: > 1 and < 3 x normal limit (1), Total Score = 5. 14:40 Data reviewed: vital signs, nurses notes. ED course: EKG interpreted by me shows normal [facility] sinus rhythm, normal axis, normal intervals, ST elevation V2 V3 3 looks more like J-point elevation less than [address] depression in V5 V6.. ED course: monitoring specialist interpreted by me shows normal sinus rhythm, rate of 80.. 16:35 ED course: Chest x-ray visualized by me, no pneumothorax. ED course: Dr Herrera accepted [facility] for OBS, spoke to Dr Roque cardiology, will do stress test ans DANIELLA. 03/11 14:30 Order name: Basic Metabolic Panel; Complete Time: 15:17 [facility] 03/11 14:30 Order name: CBC with Diff; Complete Time: 16:15 03/11 14:30 Order name: D-Dimer; Complete Time: 16:46 [facility] 03/11 14:30 Order name: LFT's; Complete Time: 15:17 [facility] 03/11 14:30 Order name: NT PRO-BNP; Complete Time: 15:17 03/11 14:30 Order name: PT-INR; Complete Time: 16:46 [facility] 03/11 14:30 Order name: Troponin HS; Complete Time: 15:17 [facility] 03/11 14:30 Order name: XRAY Chest (1 view); Complete Time: 16:15 03/11 14:30 Order name: EKG; Complete Time: 14:30 [facility] 03/11 14:30 Order name: Cardiac monitoring; Complete Time: 14:43 03/11 14:30 Order name: EKG - Nurse/Tech; Complete Time: 14:43 03/11 14:30 Order name: IV Saline Lock; Complete Time: 14:03/11 14:30 Order name: Labs collected and sent; Complete Time: 14:03/11 14:30 Order name: O2 Per Protocol; Complete Time: 14:44 jr11 03/11 14:30 Order name: O2 Sat Monitoring; Complete Time: 14:44 jr11 Administered Medications: 14:54 Drug: NS 0.9% IV 1000 ml Route: IV; Rate: 1 bolus; Site: right forearm; iw 20:02 Follow up: IV Status: Completed infusion kd3 14:55 Drug: Aspirin PO Chewable Tablet 324 mg Route: PO; iw 20:02 Follow up: Response: No adverse reaction kd3 14:55 Drug: Nitroglycerin Transdermal Ointment 2 % 1 inches Route: Transdermal; Site: iw anterior chest wall; Disposition Summary: 03/11/23 16:36 Hospitalization Ordered Hospitalization Status: Observation 11 Provider: Augusto Herrera [facility] Location: Telemetry/MedSurg (observation) 11 Condition: Stable jr11 Problem: new jr11 Symptoms: have improved jr11 Bed/Room Type: Standard [facility] Room Assignment: 224(03/11/23 18:51) eb1 Diagnosis - Chest pain, unspecified [facility] Forms: - Medication Reconciliation Form jr11 - SBAR form 11 Signatures: Dispatcher [employer] EDMaryana Degroot RN RN iw Hannah Cosby RN RN eb1 Ashlie Napoles RN RN ll1 Isak Smith MD MD [facility] Rody Raymond RN RN nj1 Nel Yang RN kd3 Corrections: (The following items were deleted from the chart) 16:26 14:38 HEART Score: History: Moderately Suspicious (1), ECG: Non specific repolarization [facility] disturbance / LBTB / PM (1), Age: > 45 and < 65 years (1), Risk Factors: > or = 3 Risk factors for atherosclerotic disease (2), [Hypercholesterolemia] [Hypertension] [DM] [Obesity] Troponin: [facility] 18:51 16:36 jr11 eb1
--- NOTE | 2023-03-11 16:36 | ER ---
Nurse's Notes [facility] Name: Ivan Parra Age: 62 yrs Sex: Male : 1960 Arrival Date: 03/11/2023 Time: 14:20 Bed 2 Private MD: Diagnosis: Chest pain, unspecified Presentation: 03/11 14:22 Chief complaint: Patient states: Chest pain since 11am today, has progressively gotten nj1 worse. Pt states he took [address] with some relief. 14:22 Method Of Arrival: Ambulatory [facility] 14:22 Coronavirus screen: Vaccine status: Patient reports receiving the 2nd dose of the covid nj1 vaccine. Ebola Screen: Patient denies travel to an Ebola-affected area in the 21 days before illness onset. Initial Sepsis Screen: Does the patient meet any 2 criteria? No. Patient's initial sepsis screen is negative. Does the patient have a suspected source of infection? No. Patient's initial sepsis screen is negative. Risk Assessment: Do you want to hurt yourself or someone else? Patient reports no desire to harm self or others. Onset of symptoms was March 11, 2023 at 11:00. 14:22 Acuity: KERWIN 2 nj1 Historical: - Allergies: 14:42 No Known Allergies; nj1 - Home Meds: 18:40 amlodipine 10 mg tablet daily [Active]; aspirin 81 mg Oral tablet,chewable daily iw [Active]; atorvastatin 40 mg oral tablet daily [Active]; carvedilol 25 mg oral tablet 2 times per day [Active]; clopidogrel 75 mg oral tablet daily [Active]; febuxostat 40 mg oral tablet daily [Active]; fluticasone propionate 50 mcg/actuation intranasal spray, suspension daily [Active]; glimepiride 4 mg Oral tablet daily [Active]; icosapent ethyl 1 gram oral capsule once [Active]; isosorbide mononitrate 60 mg Oral Tablet, Extended Release 24 hr daily [Active]; nitroglycerin 0.4 mg SL Tablet, Sublingual once [Active]; omeprazole 40 mg Oral capsule,delayed release (e.c.) daily [Active]; rosuvastatin 40 mg oral tablet daily [Active]; - PMHx: 14:23 angina pectoris; diabetes mellitus; Hypertensive disorder; kidney disease; Myocardial ll1 infarction; - PSHx: 14:23 cardiac stents; ll1 - Immunization history:: Adult Immunizations up to date. - Social history:: Smoking status: Patient denies any tobacco usage or history of. Screenin:56 [facility] ED Fall Risk Assessment (Adult) Score/Fall Risk Level 0 - 2 = Low Risk. Abuse iw screen: Denies threats or abuse. Denies injuries from another. Nutritional screening: No deficits noted. Tuberculosis screening: No symptoms or risk factors identified. Assessment: 14:44 General: Appears in no apparent distress. Behavior is calm, cooperative. iw 14:55 Pain: Complains of pain in chest Pain does not radiate. Pain currently is 4 out of 10 iw on a pain scale. Pain began 4 hours ago. Is continuous. Neuro: Level of Consciousness is awake, alert, obeys commands, Oriented to person, place, time, situation, Moves all extremities. Full function. Cardiovascular: Reports chest pain, Patient's skin is warm and dry. Rhythm is regular. Respiratory: Respiratory effort is even, unlabored, Respiratory pattern is regular, symmetrical. GI: Abdomen is non-distended. Musculoskeletal: Range of motion: intact in all extremities. 16:51 Reassessment: Patient appears in no apparent distress at this time. Patient and/or iw family updated on plan of care and expected duration. Pain level reassessed. Patient is alert, oriented x 3, equal unlabored respirations, skin warm/dry/pink. Patient states feeling better. Patient states symptoms have improved. 19:49 Reassessment: Patient is alert, oriented x 3, equal unlabored respirations, skin aa5 warm/dry/pink. Vital Signs: 14:22 BP 173 / 78; Pulse 78; Resp 18; Temp 98.1; Pulse Ox 100% on R/A; Weight 74.39 kg; nj1 Height 5 ft. 8 in. ; Pain 7/10; 14:44 BP 160 / 74; Pulse 74; Resp 16 S; Pulse Ox 100% on R/A; iw 15:12 BP 152 / 78; Pulse 74; Resp 16; Pulse Ox 100% on R/A; iw 16:40 BP 167 / 80; Pulse 72; Resp 16; Pulse Ox 100% on R/A; iw 17:45 BP 169 / 83; Pulse 72; Resp 16; Pulse Ox 100% on R/A; iw 14:22 Body Mass Index 24.94 (74.39 kg, 172.72 cm) nj1 14:22 Pain Scale: Adult nj1 ED Course: 14:21 Patient arrived in ED. am2 14:23 Isak Smith MD is Attending Physician. jr11 14:23 Arm band placed on Patient placed in an exam room, on a stretcher. ll1 14:42 Triage completed. nj1 14:43 Maryana Isbell, RN is Primary Nurse. iw 14:44 Initial lab(s) drawn, by me, sent to lab. Inserted saline lock: 20 gauge in right iw forearm, using aseptic technique. Blood collected. 14:56 Patient maintains SpO2 saturation greater than 95% on room air. iw 15:00 XRAY Chest (1 view) In Process Unspecified. EDMS 16:36 Augusto Herrera is Hospitalizing Provider. jr11 16:51 Patient has correct armband on for positive identification. Client placed on continuous iw cardiac and pulse oximetry monitoring. NIBP monitoring applied. 18:38 No provider procedures requiring assistance completed. iw 19:49 Patient admitted, IV remains in place. aa5 Administered Medications: 14:54 Drug: NS 0.9% IV 1000 ml Route: IV; Rate: 1 bolus; Site: right forearm; iw 20:02 Follow up: IV Status: Completed infusion kd3 14:55 Drug: Aspirin PO Chewable Tablet 324 mg Route: PO; iw 20:02 Follow up: Response: No adverse reaction kd3 14:55 Drug: Nitroglycerin Transdermal Ointment 2 % 1 inches Route: Transdermal; Site: iw anterior chest wall; Medication: 19:50 VIS not applicable for this client. aa5 Outcome: 16:36 Decision to Hospitalize by Provider. jr11 19:49 Admitted to Tele accompanied by tech, via wheelchair, with chart, Report called to aaHarley Schreiber RN 19:49 Condition: stable 19:49 Instructed on the need for admit, Demonstrated understanding of instructions. 20:02 Patient left the ED. kd3 Signatures: Dispatcher [employer] EDMS Maryana Isbell, RN TANNER iw Lisbeth Villagran RN RN aa5 Shani Olson am2 Ashlie Napoles RN RN 1 Nel Yang RN RN kd3 Isak Smith MD MD jr11 Segundo, Rody, RN RN nj1
--- NOTE | 2023-03-11 18:10 | P.HP ---
Certification for Inpatient Patient admitted to: Observation With expected LOS: <2 Midnights Practitioner: I am a practitioner with admitting privileges, knowledge of patient current condition, hospital course, and medical plan of care. Services: Services provided to patient in accordance with Admission requirements found in Title 42 Section 412.3 of the Code of Federal Regulations Patient History Date of Service: 03/11/23 Reason for admission: Chest pain History of Present Illness: 62-year-old gentleman with a history of diabetes mellitus type 2, coronary artery disease status post stent in the past and hypertension presented to the emergency department with a complaint of chest pain of onset yesterday. Patient reported intermittent chest pain, increasing intensity and duration, maximum intensity 8/10, nonradiating, partially relieved by sublingual nitroglycerin, no known aggravating factors, no associated nausea or vomiting or cough or shortness of breath or palpitation. History) the ED is unremarkable, no infiltrate. EKG demonstrated J-point elevation, nonspecific ST-T changes. Initial troponin is negative. Cardiology Dr. Jimenez was contacted who recommen ded hospitalization to rule out ACS and for stress test in a.m. Patient was chest pain-free during my examination in the ED. He is hospitalized for further management. Allergies No Known Allergies Allergy (Verified 11/05/22 10:51) Home Medications: Aspirin 81 mg PO DAILY 07/16/21 Cholecalciferol (Vitamin D3) [Vitamin D3] 50 mcg PO DAILY 07/16/21 Febuxostat 40 mg PO DAILY 07/16/21 Ferrous Sulfate 325 mg PO DAILY 07/16/21 Amlodipine [Norvasc*] 10 mg PO DAILY #30 tab 08/23/21 Isosorbide Mononitrate [Isosorbide Mononitrate ER] 60 mg PO DAILY #30 tab.er.24h 08/23/21 Nitroglycerin 0.4 mg PO PRN PRN 08/23/21 Clopidogrel Bisulfate [Plavix*] 75 mg PO DAILY 08/26/21 Rosuvastatin Calcium 40 mg PO BEDTIME 08/26/21 carvediloL [Coreg] 25 mg PO BID #60 tab 03/25/22 - Past Medical/Surgical History Diabetic: Yes -: Hypertension -: DM type 2 -: Chronic kidney disease -: CAD with prior stent -: Hyperlipidemia -: Anemia of chronic disease with iron deficiency -: GERD -: cardiac stents Psychosocial/ Personal History: Patient lives at home. He is - Family History Mother -: Diabetes Father -: Heart disease Notes: [place]- Brother -: Diabetes - Social History Alcohol use: Yes CD- Drugs: No Caffeine use: No Review of Systems Other: Except as documented, all other systems reviewed and negative. Physical Examination - Physical Exam General: Alert, In no apparent distress, Oriented x3 HEENT: PERRLA, Mucous membr. moist/pink, Sclerae nonicteric Neck: Supple, JVD not distended Respiratory: Clear to auscultation bilaterally, Normal air movement Cardiovascular: No edema, Regular rate/rhythm, Normal S1 S2, No murmurs Capillary refill: <2 Seconds Gastrointestinal: Normal bowel sounds, Soft and benign, Non-distended, No tenderness Musculoskeletal: No swelling, No tenderness Integumentary: No rashes, No cyanosis Neurological: Normal speech, Normal strength at 5/5 x4 extr, Cranial nerves 3-12 intact Lymphatics: No axilla or inguinal lymphadenopathy - Studies Laboratory Data (last 24 hrs) 03/11/23 14:40: PT 9.9, INR 0.82 03/11/23 14:40: WBC 4.10 L, Hgb 8.7 L, Hct 25.8 L, Plt Count 239 03/11/23 14:40: Sodium 131 L, Potassium 4.7, BUN 50 H, Creatinine 2.15 H, Glucose 223 H, Total Bilirubin 0.3, AST 25, ALT 51, Alkaline Phosphatase 146 H Assessment and Plan - Problems (Diagnosis) (1) Chest pain Current Visit: No Status: Acute Qualifiers: Chest pain type: unspecified Qualified Code(s): R07.9 - Chest pain, un specified (2) Chronic kidney disease, stage 3 Current Visit: No Status: Chronic Qualifiers: Chronic kidney disease stage 3 subtype: stage 3b (GFR 30-44) Qualified Code(s): N18.32 - Chronic kidney disease, stage 3b (3) Coronary artery disease Current Visit: No Status: Chronic Qualifiers: Coronary Disease-Associated Artery/Lesion type: [place] artery [place] vs. transplanted heart: [place] heart Associated angina: with unstable angina Qualified Code(s): I25.110 - Atherosclerotic heart disease of [place] coronary artery with unstable angina pectoris (4) DM type 2 (diabetes mellitus, type 2) Current Visit: No Status: Chronic Qualifiers: Diabetes mellitus intermodal customer service insulin use: without intermodal customer service use Diabetes mellitus complication status: with kidney complications Diabetes mellitus complication detail: with chronic kidney disease Chronic kidney disease stage: stage 3 (moderate) Chronic kidney disease stage 3 subtype: stage 3b (GFR 30- 44) Qualified Code(s): E11.22 - Type 2 diabetes mellitus with diabetic chronic kidney disease; N18.32 - Chronic kidney disease, stage 3b - Plan Place patient under observation. Continue to trend troponin Aspirin Statin Patient reported hypotension this morning after taking his Coreg. He is currently hypertensive. We will order Coreg half home dose which is 12.5 mg twice daily. Nuclear stress test if troponin trend negative. Cardiology consult Reconcile and continue other home medications. Insulin sliding scale for glucose management. - Advance Directives Does patient have a Living Will: No Does patient have a Durable POA for Healthcare: No
[2023-03-11] MEDS ORDERED: NITROGLYCERIN 0.4 MG/TAB SL PRN (19:58)
[2023-03-11] MEDS ORDERED: MORPHINE 4 MG/ML SYR IV PRN (19:58)
[2023-03-11] MEDS ORDERED: GLUCAGON 1 MG/VIAL IM PRN (19:58)
[2023-03-11] MEDS ORDERED: ACETAMINOPHEN 500 MG TAB PO PRN (19:58)
[2023-03-11] MEDS ORDERED: D50W 25 GM/50 ML SYRINGE IV PRN (19:58)
[2023-03-11 20:36] VITALS: BMI 25.1
[2023-03-11 20:55] VITALS: O2SAT 100
[2023-03-11 20:55] LABS: Troponin High Sensitivity 21.5 pg/mL (<58.9)
[2023-03-11] MEDS: INSULIN -REGULAR HUMAN 50 UNIT/0.5 ML ML SQ SCH (21:00)
[2023-03-11] MEDS: HYDRALAZINE HCL 20 MG/ML VIAL IV PRN (21:33)
[2023-03-12 03:02] LABS: Absolute Lymphocytes (CBC) 1.1 K/uL (0.7-4.9); Hematocrit 25.6 % (39.6-49.0); Lymphocytes % 23.4 % (15.3-44.8); MCV 97.8 fL (80-100); MPV 7.4 fL (7.6-11.3); RBC Red Blood Cell Count 2.61 M/uL (4.33-5.43)
[2023-03-12 03:18] LABS: Potassium 3.8 mEq/L (3.5-5.1)
[2023-03-12] MEDS: HYDRALAZINE HCL 20 MG/ML VIAL IV PRN (05:46)
[2023-03-12] MEDS: INSULIN -REGULAR HUMAN 50 UNIT/0.5 ML ML SQ SCH ×2 (07:30→11:30)
[2023-03-12] MEDS ORDERED: REGADENOSON 0.4 MG/5 ML SYR IV ONE (07:54)
--- NOTE | 2023-03-12 08:50 | EKG ---
Test Date: 2023-03-11 Test Time: 14:28:06 Engraving Plate Maker: CODY MEASUREMENT RESULTS: Intervals: Rate: 79 WI: 186 QRSD: 88 QT: 376 QTc: 431 [place]: P: 49 WI: 186 QRS: 71 T: 78 INTERPRETIVE STATEMENTS: Normal sinus rhythm Nonspecific ST and T wave abnormality Abnormal ECG Compared to ECG 03/25/2022 00:09:35 ST (T wave) deviation now present Left ventricular hypertrophy no longer present Early repolarization no longer present Electronically Signed On 03-12-23 08:47:49 CDT by Harpal Jimenez
[2023-03-12] MEDS ORDERED: ENOXAPARIN 40 MG/0.4 ML SQ SCH (09:00)
[2023-03-12] MEDS ORDERED: ASPIRIN EC 81 MG TAB PO SCH (09:00)
[2023-03-12 11:42] VITALS: BP 144/67; TEMP 98.5
--- NOTE | 2023-03-12 11:52 | RAD REPORT ---
EXAM DESCRIPTION: NM - Rest Stress Cardiac Imaging - 03/12/2023 10:52 am CLINICAL HISTORY: Chest pain COMPARISON: No comparisons TECHNIQUE: The patient was administered approximately 10.8mCi of Tc 99m Sestamibi prior to resting S PECT imaging of the heart. The patient was then administered approximately 30.5 mCi of Tc 99m Sestami bi following exercise or pharmacologic stress. Multiplanar SPECT images were reviewed. FINDINGS: No stress induced ischemic defect is seen to suggest stress induced ischemia. No definitiv e fixed defect is seen to suggest hibernating myocardium or scarred myocardium. Subtle attenuation of the tracer uptake along the inferior wall may be artifactual or related to a remote infarct. Splanch hyun uptake limits evaluation. The end diastolic volume is 154 ml, the end systolic volume is 75 ml, and the ejection fraction is 51 %. IMPRESSION: No evidence of stress-induced MAC ischemia. Questionable mild attenuation of tracer uptake along the inferior wall, could be artifactual or relat ed to a remote infarct. Left ventricular ejection fraction: 51%.
--- NOTE | 2023-03-12 14:07 | P.DS ---
Admission Date: 03/11/23 Discharge Date: 03/12/23 Disposition: ROUTINE DISCHARGE Discharge Condition: FAIR Reason for Admission: Chest pain - Problems (1) Chest pain Current Visit: No Status: Acute Qualifiers: Chest pain type: unspecified Qualified Code(s): R07.9 - Chest pain, unspecified (2) Chronic kidney disease, stage 3 Current Visit: No Status: Chronic Qualifiers: Chronic kidney disease stage 3 subtype: stage 3b (GFR 30-44) Qualified Code(s): N18.32 - Chronic kidney disease, stage 3b (3) Coronary artery disease Current Visit: No Status: Chronic Qualifiers: Coronary Disease-Associated Artery/Lesion type: [place] artery [place] vs. transplanted heart: [place] heart Associated angina: with unstable angina Qualified Code(s): I25.110 - Atherosclerotic heart disease of [place] coronary artery with unstable angina pectoris (4) DM type 2 (diabetes mellitus, type 2) Current Visit: No Status: Chronic Qualifiers: Diabetes mellitus skilled nursing insulin use: without drawing press operator use Diabetes mellitus complication status: with kidney complications Diabetes mellitus complication detail: with chronic kidney disease Chronic kidney disease stage: stage 3 (moderate) Chronic kidney disease stage 3 subtype: stage 3b (GFR 30- 44) Qualified Code(s): E11.22 - Type 2 diabetes mellitus with diabetic chronic kidney disease; N18.32 - Chronic kidney disease, stage 3b Brief History of Present Illness: 62-year-old gentleman with a history of diabetes mellitus type 2, coronary artery disease status post stent in the past and hypertension presented to the emergency department with a complaint of chest pain of onset yesterday. Patient reported intermittent chest pain, increasing intensity and duration, maximum intensity 8/10, nonradiating, partially relieved by sublingual nitroglycerin, no known aggravating factors, no associated nausea or vomiting or cough or shortness of breath or palpitation. History) the ED is unremarkable, no infiltrate. EKG demonstrated J-point elevation, nonspecific ST-T changes. Initial troponin is negative. Cardiology Dr. Jimenez was contacted who recommended hospitalization to rule out ACS and for stress test in a.m. Patient was chest pain-free during my examination in the ED. He was hospitalized for further management. Hospital Course: Patient was placed on observation on the medical floor. Troponin trended negative. Nuclear stress test was done per cardiology Dr. Jimenez's recommendation. Stress test did not show any stress-induced ischemia. ACS ruled out. Patient with no known CAD on aspirin and Plavix and Imdur. Vitals are stable. Patient has been chest pain-free since admission. He is deemed stable for discharge. 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 Vital Signs/Physical Exam: Temp Pulse Resp BP Pulse Ox 98.5 F 83 16 144/67 H 98 03/12/23 11:41 03/12/23 11:41 03/12/23 11:41 03/12/23 11:41 03/12/23 11:41 General: Alert, In no apparent distress, Oriented x3 HEENT: Mucous membr. moist/pink Neck: Supple, JVD not distended Respiratory: Clear to auscultation bilaterally, Normal air movement Cardiovascular: No edema, Regular rate/rhythm, Normal S1 S2 Gastrointestinal: Normal bowel sounds, Soft and benign, Non-distended, No tenderness Musculoskeletal: No swelling Integumentary: No breakdown, No cyanosis Neurological: Normal strength at 5/5 x4 extr Laboratory Data at Discharge: WBC 4.80 thou/uL (4.3-10.9) 03/12/23 02:25 Hgb 8.6 g/dL (13.6-17.9) L 03/12/23 02:25 Hct 25.6 % (39.6-49.0) L 03/12/23 02:25 Plt Count 244 thou/uL (152-406) 03/12/23 02:25 PT 9.9 SECONDS (9.2-12.8) 03/11/23 14:40 INR 0.82 03/11/23 14:40 Sodium 138 mEq/L (136-145) D 03/12/23 02:25 Potassium 3.8 mEq/L (3.5-5.1) D 03/12/23 02:25 BUN 50 mg/dL (7-18) H 03/12/23 02:25 Creatinine 1.82 mg/dL (0.70-1.30) H 03/12/23 02:25 Glucose 75 mg/dL (74-106) 03/12/23 02:25 Total Bilirubin 0.3 mg/dL (0.2-1.0) 03/11/23 14:40 AST 25 U/L (15-37) 03/11/23 14:40 ALT 51 U/L (16-61) 03/11/23 14:40 Alkaline Phosphatase 146 U/L (45-117) H 03/11/23 14:40 Triglycerides 92 mg/dL (<150) 03/11/23 20:26 Cholesterol 113 mg/dL (<200) 03/11/23 20:26 HDL Cholesterol 62 mg/dL (40-60) H 03/11/23 20:26 Cholesterol/HDL Ratio 1.82 03/11/23 20:26 Home Medications: Aspirin 81 mg PO DAILY 07/16/21 Febuxostat 40 mg PO DAILY 07/16/21 Ferrous Sulfate 325 mg PO DAILY 07/16/21 Amlodipine [Norvasc*] 10 mg PO DAILY #30 tab 08/23/21 Isosorbide Mononitrate [Isosorbide Mononitrate ER] 60 mg PO DAILY #30 tab.er.24h 08/23/21 Nitroglycerin 0.4 mg PO PRN PRN 08/23/21 Clopidogrel Bisulfate [Plavix*] 75 mg PO DAILY 08/26/21 Rosuvastatin Calcium 40 mg PO BEDTIME 08/26/21 carvediloL [Coreg*] 25 mg PO BID #60 tab 03/25/22 Diet: AHA Activity: Ad anjali Followup: Emely Lu NP [Primary Care Provider] -
--- NOTE | 2023-03-12 20:07 | CON ---
Date of Consultation: 03/12/2023 Reason For Consultation: Chest pain. History Of Present Illness: A 62-year-old male with history of diabetes, coronary artery disease, st atus post cardiac stent placement, hypertension, presented with chest pain and tightness, intermitten t, no radiation. Pain is relieved by sublingual nitroglycerin and is not exertional. Denies having any chest pain since hospitalization. Past Medical History: As outlined above in HPI. Medications: Refer to reconciliation sheet for detailed list. Allergies: TO NO KNOWN DRUG ALLERGIES. Family History: No premature coronary artery disease or cancer. Social History: He does not smoke or drink. Does not use any drugs. Review of Systems: All systems reviewed are negative except mentioned in HPI. Physical Examination: Vital Signs: Reviewed. Head and Neck: Pupils are equal, reactive to light. Intact eye movements. No JVD. No cervical lym phadenopathy. Neck: Supple. Thyroid is not enlarged. Lungs: Clear to auscultation bilaterally. No rhonchi, rales, or crackles. No accessory muscle use. Heart: Regular rate and rhythm. No extra sounds. Abdomen: Soft, nontender. Bowel sounds positive. No organomegaly. No masses or hernia. No rigidi ty or rebound. Extremities: No edema, clubbing, or cyanosis. Intact pulses. Skin: No rash. Neurologic: Alert, awake, oriented x3. No acute focal deficits appreciated. Lymph nodes: No cervical or axillary lymphadenopathy. Investigations: Troponins are negative. BUN is 50, creatinine 1.82, hemoglobin 8.6. Assessment And Recommendations: 1.Chest pain in the setting of coronary artery disease. Last PCI was done on him on October 02 2 and did a PCI of the proximal RCA. We did a stress test on him and there was no stress-induced isc hemia. Given the troponins are negative, likely this is not cardiac. From cardiology standpoint, shaji ochoa can be released and followup with his primary national flatbed truck driver. He sees Dr. Latham as an outpatie nt. 2.Dyslipidemia. Recommend to start Lipitor 40 mg at bedtime. 3.Hypertension. Resume home medications just as needed. Cardiology will sign off and to follow wit h his primary national flatbed truck driver as an outpatient. /MELANY Voice ID: [id number] Report ID: [id number]
--- NOTE | 2023-03-13 13:11 | P.CNS ---
Date of Consult: 03/12/23 Reason for Consult: CKD3b Requesting Physician: mahnaz diop Chief Complaint: Chest pain History of Present Illness: This note is for the service date of 03/12/2023. 60M with past medical history of CKD3b w/ mild proteinuria presumed to be 2/2 Htn/DM, LOUISE from diuretic use, CAD s/p PCI, & DM2 who p/w hypotension & chest pain. He reports having low BPs at home for the past several days. He developed chest pain yesterday. EKG showed nonspecific ST-T changes. Initial troponin is negative. He underwent nuclear stress test that was neg for ischemia. Chest pain resolved. Renal fxn at baseline. Allergies No Known Allergies Allergy (Verified 11/05/22 10:51) Home Medications: Aspirin 81 mg PO DAILY 07/16/21 Febuxostat 40 mg PO DAILY 07/16/21 Ferrous Sulfate 325 mg PO DAILY 07/16/21 Amlodipine [Norvasc*] 10 mg PO DAILY #30 tab 08/23/21 Isosorbide Mononitrate [Isosorbide Mononitrate ER] 60 mg PO DAILY #30 tab.er.24h 08/23/21 Nitroglycerin 0.4 mg PO PRN PRN 08/23/21 Clopidogrel Bisulfate [Plavix*] 75 mg PO DAILY 08/26/21 Rosuvastatin Calcium 40 mg PO BEDTIME 08/26/21 carvediloL [Coreg*] 25 mg PO BID #60 tab 03/25/22 - Past Medical/Surgical History Diabetic: Yes -: Hypertension -: DM type 2 -: Chronic kidney disease -: CAD with prior stent -: Hyperlipidemia -: Anemia of chronic disease with iron deficiency -: GERD -: cardiac stents -: cataract Psychosocial/ Personal History: Patient lives at home. He is - Family History Mother Medical History: Diabetes Father Medical History: Heart disease Notes: CT- Brother Medical History: Diabetes - Social History Alcohol use: Yes CD- Drugs: No Caffeine use: No Place of Residence: Home Review of Systems General: Unremarkable Eyes: Unremarkable ENT: Unremarkable Respiratory: Unremarkable Cardiovascular: Chest Pain, Other (Hypotension) Gastrointestinal: Unremarkable Genitourinary: Unremarkable Musculoskeletal: Unremarkable Integumentary: Unremarkable Neurological: Unremarkable Lymphatics: Unremarkable Physical Examination Temp Pulse Resp BP Pulse Ox 98.5 F 83 16 144/67 H 98 06/30/23 11:41 03/12/23 11:41 03/12/23 11:41 03/12/23 11:41 03/12/23 11:41 General: In no apparent distress HEENT: Atraumatic, Normocephalic Neck: Supple, JVD not distended Respiratory: Clear to auscultation bilaterally Cardiovascular: No rubs, No murmurs Gastrointestinal: Soft and benign, No rebound, No guarding Musculoskeletal: No clubbing Integumentary: No warmth Neurological: Normal speech, Normal tone Lymphatics: No axilla or inguinal lymphadenopathy Urinary: Other (No bladder distention) External genitalia: Deferred Rectal: Deferred Conclusions/Impression: # CKD3b w/ mild proteinuria presumed to be 2/2 Htn/DM He had LOUISE recently in the setting of NSTEMI with GFR dropping to the 30s mL per minute improved back to 40-45 mL/min GFR 42 on adm, at baseline Highest recent eGFR was at 53 ml/min on 06/21/21 Has had bouts of LOUISE secondary to diuretic use & acute cardiorenal syndrome +Mild proteinuria; random UPCR 0.7 g [place] by mouth fluid intake > L/day Glycemic control Monitor renal panel # Chest pain Hx of CAD, NSTEMI status post PCI Nuclear stress test neg Currently on dual antiplatelet therapy Per Cardiology # Hypotension Hx of Htn BP at goal; Goal BP less than 130/80 Amlodipine d/c'ed recently Resume coreg at lower dose 12.5 mg po bid DC furosemide previously Avoid Hydralazine or Minoxidil to avoid vasodilatory edema HCTZ dc permanently due to prior episode of hyponatremia from this medication # Hypermagnesemia likely secondary to high magnesium diet He was counseled on avoiding high magnesium diet, and avoid cactus in his diet # Generalized anxiety disorder Monitor # HLD Vascepa + crestor # Anemia w/ iron deficiency History of colon polyps for which he underwent colonoscopy last year and was advised to have repeat colonoscopy this year to reassess polyps For Colonoscopy on March 17 2023, follow-up result Cont FeSO4 tabs 325 mg po from BID to TID If he becomes constipated from iron tablets, he will start taking docusate 100 mg by mouth twice a day plus senna 8.6 mg by mouth twice a day No need for further erythropoietin injections Monitor H/H # Chronic metabolic acidosis Cont Na bicarb 650 mg po bid # Secondary hyperPTH Recent 25OHD level Low Cont vitamin D3 to 5000 international units by mouth daily # Vit D deficiency Cont D3 supplementation as above # Hyperuricemia Cont Uloric at 40 mg po daily Recheck serum uric acid level prior to next clinic visit # DM2 Recent Hemoglobin A1c 7.5% No longer taking Jentadueto Per primary team
--- NOTE | 2023-03-15 07:01 | ECHO ---
HEIGHT: 5 ft 8 in WEIGHT: 164 lb 0 oz DATE OF STUDY: 03/12/[address]: Augusto Herrera MD 2-DIMENSIONAL: YES M.MODE: YES DOPPLER: YES COLOR FLOW: YES TDS: PORTABLE: YES DEFINITY: BUBBLE STUDY: DIAGNOSIS: CHEST PAIN, CORONARY ARTERY DISEASE CARDIAC HISTORY: CATHERIZATION: YES SURGERY: NO PROSTHETIC VALVE: NO PACEMAKER: NO MEASUREMENTS (cm) DIASTOLIC (NORMALS) SYSTOLIC (NORMALS) IVSd 1.2 (0.6-1.2) LA Diam 2.5 (1.9-4.0) LVEF 67% LVIDd 4.8 (3.5-5.7) LVIDs 3.0 (2.0-3.5) %FS 37% LVPWd 1.2 (0.6-1.2) Ao Diam 2.5 (2.0-3.7) 2 DIMENSIONAL ASSESSMENT: RIGHT ATRIUM: NORMAL LEFT ATRIUM: NORMAL RIGHT VENTRICLE: NORMAL LEFT VENTRICLE: LEFT VENTRICULAR HYPERTROPHY TRICUSPID VALVE: NORMAL MITRAL VALVE: NORMAL PULMONIC VALVE: NORMAL AORTIC VALVE: CALCIFIED WITH MILD AORTIC INSUFFICIENCY PERICARDIAL EFFUSION: NONE AORTIC ROOT: NORMAL LEFT VENTRICULAR WALL MOTION: NORMAL DOPPLER/COLOR FLOW: SEE BELOW COMMENTS: 1. NORMAL LEFT VENTRICULAR EJECTION FRACTION 60-65% WITH NORMAL WALL MOTION 2. MILD CONCENTRIC LEFT VENTRICULAR HYPERTROPHY 3. CALCIFIED AORTIC VALVE, NO AORTIC STENOSIS, MILD AORTIC INSUFFICIENCY 4. GRADE I DIASTOLIC DYSFUNCTION TECHNOLOGIST: CHELO WREN
--- NOTE | 2023-03-15 07:10 | TREADPHA ---
DX: CHEST PAIN Date of Study: 03/12/2023 Ht: 5' 8 " Wt: 164 lb 0 oz Consulting Physician: DALLAS MEDICATIONS: TYLENOL, ASPIRIN, DEXTROSE, LOVENOX, GLUCAGEN, APRESOLINE, NOVOLIN-R, MORPHINE, NITROSTAT HISTORY: 62 YEAR OLD MALE WITH COMPLIANTS OF CHEST PAIN. PATIENT HAS HISTORY OF HYPERTENSION, DIABETES MELLITUS, CORONARY ARTERY DISEASE WITH STENTS. PATIENT DENIES ALLERGIES. PHYSICIAL EXAMINATION: RESTING B.P.: 167/68 RESTING H.R.: 85 RESTING EKG: NORMAL SINUS RHYTHM, LEFT VENTRICULAR HYPERTROPHY PROTOCOL: PHARMACOLOGIC EXERCISE TIME: 3:30 B.P. AT PEAK STRESS: 127/48 IMPRESSION: LEXISCAN INJECTED. CARDIOLITE INJECTED - SEE NUCLEAR MEDICINE REPORT. PATIENT STATES HEADACHE IN RECOVERY. PATIENT DENIES CHEST PAIN. NO SUPRAVENTRICULAR TACHYCARDIA, VENTRICULAR TACHYCARDIA, PREMATURE ATRIAL COMPLEXES, PREMATURE VENTRICULAR COMPLEXES NOTED. NO ELECTROCARDIOGRAM CHANGES OF ISCHEMIA WITH LEXISCAN.
== END 2023-03-12 16:27 | disposition home or self-care (01) ==
LOC: ER 14:20 → ERHOLD 17:37 → 2ND 19:49
PROVIDERS: ADMIT Internal Medicine; ATTEND Internal Medicine
DX: R07.9 Chest pain, unspecified (principal); I25.10 Atherosclerotic heart disease of native coronary artery without angina pectoris; E11.22 Type 2 diabetes mellitus with diabetic chronic kidney disease; I12.9 Hypertensive chronic kidney disease with stage 1 through stage 4 chronic kidney disease, or unspecified chronic kidney disease; N18.32 Chronic kidney disease, stage 3b; Z82.49 Family history of ischemic heart disease and other diseases of the circulatory system; E83.41 Hypermagnesemia; F41.9 Anxiety disorder, unspecified; E78.5 Hyperlipidemia, unspecified; D63.1 Anemia in chronic kidney disease; E87.22 Chronic metabolic acidosis; E55.9 Vitamin D deficiency, unspecified
CPT/HCPCS: 96361; 93005; 93017; 93306; 85025 ×2; 80048 ×2; 36415; 85610; 80061; 82947 ×7; 85379; 80076; 84484 ×3; 83880; 71045; 94760; 78452; 96360; 99285; J2785; J0360 ×2; J7030; A9500; G0378

== ENCOUNTER 2023-11-14 23:45 | Inpatient (IN) | payer BC ==
[2023-11-15] MEDS ORDERED: NITROGLYCERIN 0.4 MG/TAB SL ONE (00:41)
[2023-11-15 00:49] LABS: Absolute Eosinophils 0.2 K/uL (0-0.5); Absolute Lymphocytes (CBC) 0.8 K/uL (0.7-4.9); Absolute Monocytes 0.6 K/uL (0.1-1.3); Absolute Neutrophil 2.5 K/uL (1.8-8.0); Eosinophils % 4.7 % (0-4.4); Hematocrit 26.2 % (39.6-49.0); MCH 34.3 pg (27.0-35.0); MCHC 34.5 g/dL (32.0-36.0); MCV 99.4 fL (80-100); MPV 7.9 fL (7.6-11.3); Monocytes % 13.7 % (3.3-12.3); Neutrophils % 60.6 % (41.7-73.7); Nucleated Red Blood Cells % 0.1 % (0-0); Platelets 215 thou/uL (152-406); RBC Red Blood Cell Count 2.63 M/uL (4.33-5.43); Red Cell Distribution Width 12.7 % (12.1-15.2)
[2023-11-15 00:54] LABS: PT Prothrombin Time 11.9 SECONDS (9.5-12.5); Protime INR 1.08
[2023-11-15 01:11] LABS: Albumin 3.6 g/dL (3.4-5.0); Albumin/Globulin Ratio 1.1 (1.1-1.8); Anion Gap 10.1 mEq/L (5.0-15.0); Bilirubin Direct 0.1 mg/dL (0-0.2); Bilirubin Indirect, Calculated 0.2 mg/dL (0.2-0.8); Bilirubin Total 0.3 mg/dL (0.2-1.0); Globulin 3.4 g/dL (2.3-3.5); Magnesium 1.9 mg/dL (1.6-2.4); Potassium 4.1 mEq/L (3.5-5.1); Troponin High Sensitivity 24.9 pg/mL (<58.9)
[2023-11-15] MEDS ORDERED: ASPIRIN 81 MG CHEWABLE TABLET ONE (01:17)
--- NOTE | 2023-11-15 01:19 | ER ---
Nurse's Notes [facility] Name: Ivan Parra Age: 63 yrs Sex: Male : 1960 Arrival Date: 11/14/2023 Time: 23:45 Bed 7 Private MD: Diagnosis: Chest pain, unspecified Presentation: 11/14 00:10 Chief complaint: Patient states: Pt c/o sudden onset of non-radiating, non-reproducible tl4 midsternal chest pressure and SOB at 2100 while lying down. Pt states he started a new BP medication. Pt denies diaphoresis, nausea. Coronavirus screen: At this time, the client does not indicate any symptoms associated with coronavirus-19. Ebola Screen: No symptoms or risks identified at this time. Initial Sepsis Screen: Does the patient meet any 2 criteria? No. Patient's initial sepsis screen is negative. Does the patient have a suspected source of infection? No. Patient's initial sepsis screen is negative. Risk Assessment: Do you want to hurt yourself or someone else? Patient reports no desire to harm self or others. Onset of symptoms was November 14, 2023 at 21:00. 00:10 Method Of Arrival: Ambulatory tl4 00:10 Acuity: KERWIN 2 tl4 Triage Assessment: 00:17 General: Appears in no apparent distress. Behavior is calm, cooperative. Pain: tl4 Complains of pain in chest. EENT: No deficits noted. No signs and/or symptoms were reported regarding the EENT system. Neuro: No deficits noted. Cardiovascular: Reports chest pain, Denies diaphoresis, fatigue, lightheadedness, nausea, palpitations, syncope. Respiratory: Reports shortness of breath. GI: No deficits noted. No signs and/or symptoms were reported involving the gastrointestinal system. : No deficits noted. No signs and/or symptoms were reported regarding the genitourinary system. Derm: No deficits noted. No signs and/or symptoms reported regarding the dermatologic system. Musculoskeletal: No deficits noted. No signs and/or symptoms reported regarding the musculoskeletal system. Historical: - Allergies: 00:12 No Known Allergies; tl4 - Home Meds: 00:12 aspirin 81 mg Oral tablet daily [Active]; atorvastatin 40 mg Oral tablet daily tl4 [Active]; carvedilol 25 mg Oral tablet 2 times per day [Active]; calcitriol 0.25 mcg oral capsule 1 cap daily [Active]; ferrous sulfate 325 mg (65 mg iron) Oral tablet 1 tab daily [Active]; clopidogrel 75 mg Oral tablet 1 tab daily [Active]; fluticasone propionate 50 mcg/actuation intranasal spray 1 spray daily [Active]; glimepiride 2 mg oral tablet 1 tabs daily [Active]; icosapent ethyl 1 gram Oral capsule 2 caps 2 times per day [Active]; nitroglycerin 0.4 mg SL Tablet 1 tab every 5 minutes [Active]; omeprazole 40 mg Oral capsule 1 cap daily [Active]; testosterone cypionate 200 mg/mL intramuscular oil 0.5 mL every week [Active]; hydralazine 25 mg Oral tablet 1 tab 3 times per day [Active]; - PMHx: 00:12 angina pectoris; diabetes mellitus; Hypertensive disorder; kidney disease; Myocardial tl4 infarction; - PSHx: 00:12 cardiac stents; tl4 - Immunization history:: Adult Immunizations unknown. - Social history:: Smoking status: Patient denies any tobacco usage or history of. Screenin:19 [facility] ED Fall Risk Assessment (Adult) History of falling in the last 3 months, jb4 including since admission No falls in past 3 months (0 pts) Confusion or Disorientation No (0 pts). Abuse screen: Denies threats or abuse. Nutritional screening: No deficits noted. Tuberculosis screening: No symptoms or risk factors identified. Assessment: 00:19 General: Appears in no apparent distress. comfortable, Behavior is calm, cooperative, jb4 appropriate for age. Pain: Complains of pain in chest Pain does not radiate. Pain currently is 8 out of 10 on a pain scale. Neuro: Level of Consciousness is awake, alert, obeys commands, Oriented to person, place, time, situation. Cardiovascular: Patient's skin is warm and dry. Respiratory: Airway is patent Respiratory effort is even, unlabored, Respiratory pattern is regular, symmetrical. GI: No signs and/or symptoms were reported involving the gastrointestinal system. : No signs and/or symptoms were reported regarding the genitourinary system. EENT: No signs and/or symptoms were reported regarding the EENT system. Derm: Skin is intact, Skin is pink, warm \T\ dry. Musculoskeletal: Circulation, motion, and sensation intact. Range of motion: intact in all extremities. 02:04 Reassessment: Patient appears in no apparent distress at this time. No changes from lg3 previously documented assessment. Patient and/or family updated on plan of care and expected duration. Pain level reassessed. Patient is alert, oriented x 3, equal unlabored respirations, skin warm/dry/pink. Pain: Complains of pain in chest Pain does not radiate. Pain currently is 5 out of 10 on a pain scale. Quality of pain is described as heavy, pressure. Vital Signs: 00:10 BP 193 / 87; Pulse 74; Resp 11; Temp 98.5(O); Pulse Ox 96% on R/A; Weight 72.57 kg; tl4 Height 5 ft. 8 in. ; Pain 8/10; 00:45 BP 183 / 77; Pulse 69; Resp 12 S; Pulse Ox 96% on R/A; lg3 01:00 BP 160 / 75; Pulse 62; Resp 14 S; Pulse Ox 95% on R/A; lg3 02:00 BP 179 / 83; Pulse 69; Resp 14 S; Pulse Ox 97% on R/A; lg3 02:45 BP 173 / 78; Pulse 62; Resp 15 S; Pulse Ox 97% on R/A; lg3 00:10 Body Mass Index 24.33 (72.57 kg, 172.72 cm) tl4 00:10 Pain Scale: Adult tl4 ED Course: 00:07 Patient arrived in ED. sp 00:07 Rosi Berrios MD is Attending Physician. sp3 00:12 Triage completed. tl4 00:18 Arm band placed on right wrist. tl4 00:18 No provider procedures requiring assistance completed. Initial lab(s) drawn, by holly hoffman sent to lab. Inserted saline lock: 18 gauge in right forearm, using aseptic technique. Blood collected. 00:19 Patient has correct armband on for positive identification. Bed in low position. Call jb4 light in reach. Side rails up X 1. 00:22 XRAY Chest (1 view) In Process Unspecified. EDMS 00:45 Anabella Miner, TANNER is Primary Nurse. lg3 01:18 Eb Reyes MD is Hospitalizing Provider. sp3 02:45 Patient admitted, IV remains in place. lg3 Administered Medications: 00:46 Drug: Nitroglycerin Sublingual 0.4 mg Sublingual once; every five minute if needed x3 lg3 Route: Sublingual; 01:05 Drug: Nitroglycerin Sublingual 0.4 mg Sublingual once; every five minute if needed x3 lg3 Route: Sublingual; 01:16 Not Given (Other Intervention Used): mg PO once jb4 01:22 Drug: Aspirin PO 243 mg PO once Route: PO; lg3 01:26 Follow up: Response: No adverse reaction lg3 02:13 Drug: Nitroglycerin Sublingual 0.4 mg Sublingual once; every five minute if needed x3 lg3 Route: Sublingual; 02:46 Follow up: Response: No adverse reaction; Marked relief of symptoms; Pain is decreased; lg3 Blood pressure is lowered Medication: 00:19 VIS not applicable for this client. jb4 Outcome: 01:18 Decision to Hospitalize by Provider. sp3 02:43 Admitted to Med/surg accompanied by tech, via wheelchair, room 422, Report called to 3 Lila 02:43 Condition: stable 02:43 Instructed on the need for admit, Demonstrated understanding of instructions, 03:20 Patient left the ED. lg3 Signatures: Dispatcher [employer] EDMS Shabnam Jiménez James, RN RN jb4 Anabella Miner RN RN lg3 Rosi Berrios MD MD sp3 Dustin Ambrosio RN RN tl4
--- NOTE | 2023-11-15 01:19 | EDPHYS ---
Physician Documentation [facility] Name: Ivan Parra Age: 63 yrs Sex: Male : 1960 Arrival Date: 11/14/2023 Time: 23:45 Bed 7 Private MD: ED Physician Rosi Berrios HPI: 11/14 00:52 This 63 yrs old Male presents to ER via Ambulatory with complaints of high sp3 blood pressure, chest pain. 00:52 63-year-old male with a history of diabetes, hypertension, [place], angina, chronic kidney sp3 disease now presents to the ED with chief complaint high blood pressure and episodic chest pain for 2 days off-and-on. Patient states that his blood pressure medications have been changing and after doses BP has been trending high in the 180s to 200 range systolically. He denies any sudden onset of crushing chest pain, shortness of breath, back pain or abdominal pain or left arm pain. He does have mild episodic chest pain that self resolves. Review of systems he denies syncope, near syncope, focal neurological deficit, fever, URI symptoms, nausea, vomiting, diarrhea, rash, focal weakness, known sick contacts, travel history, prolonged immobilization, or any other signs or symptoms on ROS at this time.. Historical: - Allergies: 00:12 No Known Allergies; tl4 - Home Meds: 00:12 aspirin 81 mg Oral tablet daily [Active]; atorvastatin 40 mg Oral tablet daily tl4 [Active]; carvedilol 25 mg Oral tablet 2 times per day [Active]; calcitriol 0.25 mcg oral capsule 1 cap daily [Active]; ferrous sulfate 325 mg (65 mg iron) Oral tablet 1 tab daily [Active]; clopidogrel 75 mg Oral tablet 1 tab daily [Active]; fluticasone propionate 50 mcg/actuation intranasal spray 1 spray daily [Active]; glimepiride 2 mg oral tablet 1 tabs daily [Active]; icosapent ethyl 1 gram Oral capsule 2 caps 2 times per day [Active]; nitroglycerin 0.4 mg SL Tablet 1 tab every 5 minutes [Active]; omeprazole 40 mg Oral capsule 1 cap daily [Active]; testosterone cypionate 200 mg/mL intramuscular oil 0.5 mL every week [Active]; hydralazine 25 mg Oral tablet 1 tab 3 times per day [Active]; - PMHx: 00:12 angina pectoris; diabetes mellitus; Hypertensive disorder; kidney disease; Myocardial tl4 infarction; - PSHx: 00:12 cardiac stents; tl4 - Immunization history:: Adult Immunizations unknown. - Social history:: Smoking status: Patient denies any tobacco usage or history of. ROS: 00:53 Constitutional: Negative for fever, chills, and weight loss, Eyes: Negative for injury, sp3 pain, redness, and discharge, ENT: Negative for injury, pain, and discharge, Neck: Negative for injury, pain, and swelling, Respiratory: Negative for shortness of breath, cough, wheezing, and pleuritic chest pain, Abdomen/GI: Negative for abdominal pain, nausea, vomiting, diarrhea, and constipation, Back: Negative for injury and pain, MS/Extremity: Negative for injury and deformity, Skin: Negative for injury, rash, and discoloration, Psych: Negative for depression, anxiety, suicide ideation, homicidal ideation, and hallucinations, Allergy/Immunology: Negative for hives, rash, and allergies, Endocrine: Negative for neck swelling, polydipsia, polyuria, polyphagia, and marked weight changes, Hematologic/Lymphatic: Negative for swollen nodes, abnormal bleeding, and unusual bruising, 00:53 All other systems are negative, Exam: 00:54 Constitutional: This is a well developed, well nourished patient who is awake, alert, sp3 and in no acute distress. Head/Face: Normocephalic, atraumatic. Eyes: Pupils equal round and reactive to light, extra-ocular motions intact. Lids and lashes normal. Conjunctiva and sclera are non-icteric and not injected. Cornea within normal limits. Periorbital areas with no swelling, redness, or edema. ENT: Nares patent. No nasal discharge, no septal abnormalities noted. External auditory canals are clear. Oropharynx with no redness, swelling, or masses, exudates, or evidence of obstruction, uvula midline. Mucous membranes moist. Neck: Trachea midline, no thyromegaly or masses palpated, and no cervical lymphadenopathy. Supple, full range of motion without nuchal rigidity, or vertebral point tenderness. No Meningismus. Chest/axilla: Normal chest wall appearance and motion. Nontender with no deformity. No lesions are appreciated. Cardiovascular: Regular rate and rhythm with a normal S1 and S2. No gallops, murmurs, or rubs. Normal PMI, no JVD. No pulse deficits. Respiratory: Lungs have equal breath sounds bilaterally, clear to auscultation and percussion. No rales, rhonchi or wheezes noted. No increased work of breathing, no retractions or nasal flaring. Abdomen/GI: Soft, non-tender, with normal bowel sounds. No distension or tympany. No guarding or rebound. No evidence of tenderness throughout. Back: No spinal tenderness. No costovertebral tenderness. Full range of motion. Skin: Warm, dry with normal turgor. Normal color with no rashes, no lesions, and no evidence of cellulitis. MS/ Extremity: Pulses equal, no cyanosis. Neurovascular intact. Full, normal range of motion. Neuro: Awake and alert, GCS 15, oriented to person, place, time, and situation. Cranial nerves II-XII grossly intact. Motor strength 5/5 in all extremities. Sensory grossly intact. Cerebellar exam normal. Normal gait. Psych: Awake, alert, with orientation to person, place and time. Behavior, mood, and affect are within normal limits. 00:54 ECG was reviewed by the Attending Physician. EKG demonstrates normal sinus rhythm at 76 bpm with left ventricular hypertrophy nonspecific diffuse ST's ST changes with normal axis and high voltage. Vital Signs: 00:10 BP 193 / 87; Pulse 74; Resp 11; Temp 98.5(O); Pulse Ox 96% on R/A; Weight 72.57 kg; tl4 Height 5 ft. 8 in. ; Pain 8/10; 00:45 BP 183 / 77; Pulse 69; Resp 12 S; Pulse Ox 96% on R/A; lg3 01:00 BP 160 / 75; Pulse 62; Resp 14 S; Pulse Ox 95% on R/A; lg3 02:00 BP 179 / 83; Pulse 69; Resp 14 S; Pulse Ox 97% on R/A; lg3 02:45 BP 173 / 78; Pulse 62; Resp 15 S; Pulse Ox 97% on R/A; lg3 00:10 Body Mass Index 24.33 (72.57 kg, 172.72 cm) tl4 00:10 Pain Scale: Adult tl4 MDM: 00:07 Patient medically screened. sp3 00:55 Data reviewed: vital signs, nurses notes, old medical records, lab test result(s), EKG, sp3 radiologic studies. ED course: 63-year-old male with high blood pressure hypertensive urgency with off-and-on chest pain. Currently his blood pressure is a between 180 and 190 systolically we will bring it down with sublingual nitroglycerin. Routine chest pain workup is also pending with EKG already performed, chest x-ray and labs pending. Disposition pending workup and patient course with possible 22-hour observation given his past medical history and risk factors.. 00:57 ED course: Previous EKG dated 03/11/2023 demonstrates normal T waves 2 3 aVF and sp3 laterally which are now inverted. These are new EKG changes and will warrant admission.. 11/14 00:10 Order name: Basic Metabolic Panel; Complete Time: : sp3 11/14 00:10 Order name: CBC with Diff; Complete Time: : sp3 11/14 00:10 Order name: LFT's; Complete Time: sp3 11/14 00:10 Order name: Magnesium; Complete Time: : sp3 11/14 00:10 Order name: NT PRO-BNP; Complete Time: : sp3 11/14 00:10 Order name: PT-INR; Complete Time: sp3 11/14 00:10 Order name: Troponin HS; Complete Time: : sp3 11/14 01:56 Order name: Basic Metabolic Panel EDMS 11/14 01:56 Order name: Basic Metabolic Panel EDMS 11/14 01:56 Order name: Basic Metabolic Panel EDMS 11/14 01:56 Order name: Lipid Profile EDMS 11/14 01:56 Order name: Lipid Profile EDMS 11/14 01:56 Order name: Troponin High Sensitivity EDMS 11/14 01:56 Order name: Troponin High Sensitivity EDMS 11/14 01:56 Order name: Troponin High Sensitivity EDMS 11/14 01:56 Order name: Troponin High Sensitivity EDMS 11/14 00:10 Order name: XRAY Chest (1 view) sp3 11/14 01:56 Order name: Echo with Doppler EDMS 11/14 00:10 Order name: EKG; Complete Time: 00:10 sp3 11/14 00:10 Order name: Cardiac monitoring; Complete Time: 00:11 sp3 11/14 00:10 Order name: EKG - Nurse/Tech; Complete Time: 00: sp3 11/14 00:10 Order name: IV Saline Lock; Complete Time: 00: sp3 11/14 00:10 Order name: Labs collected and sent; Complete Time: 00:18 sp3 11/14 00:10 Order name: O2 Per Protocol; Complete Time: 00: sp3 11/14 00:10 Order name: O2 Sat Monitoring; Complete Time: 00:11 sp3 Administered Medications: 00:46 Drug: Nitroglycerin Sublingual 0.4 mg Sublingual once; every five minute if needed x3 lg3 Route: Sublingual; 01:05 Drug: Nitroglycerin Sublingual 0.4 mg Sublingual once; every five minute if needed x3 lg3 Route: Sublingual; 01:16 Not Given (Other Intervention Used): mg PO once jb4 01:22 Drug: Aspirin PO 243 mg PO once Route: PO; lg3 01:26 Follow up: Response: No adverse reaction lg3 02:13 Drug: Nitroglycerin Sublingual 0.4 mg Sublingual once; every five minute if needed x3 lg3 Route: Sublingual; 02:46 Follow up: Response: No adverse reaction; Marked relief of symptoms; Pain is decreased; lg3 Blood pressure is lowered Disposition Summary: 11/15/23 01:18 Hospitalization Ordered Notes: Hospitalization Status: Inpatient Admission sp3 Provider: Eb Reyes sp3 [facility] sp3 Condition: Stable sp3 Problem: an acute exacerbation sp3 Symptoms: have worsened sp3 Bed/Room Type: Standard sp3 Room Assignment: 422(11/15/23 02:02) cm10 Diagnosis - Chest pain, unspecified sp3 Forms: - Medication Reconciliation Form sp3 - SBAR form sp3 - Leadership Thank You Letter sp3 Signatures: Dispatcher [employer] Chester Pennington RN RN jb4 Anabella Miner RN TANNER lg3 Rosi Berrios MD MD sp3 Liza Morales RN RN cm10 Dustin Ambrosio RN RN tl4 Corrections: (The following items were deleted from the chart) 02:02 01:18 sp3 cm10
[2023-11-15] MEDS ORDERED: ONDANSETRON 4 MG/2 ML VIAL IV PRN (01:46)
[2023-11-15] MEDS ORDERED: MORPHINE 4 MG/ML SYR IV PRN (01:46)
[2023-11-15] MEDS ORDERED: NITROGLYCERIN 0.4 MG/TAB SL PRN (01:46)
--- NOTE | 2023-11-15 03:34 | P.HP ---
Certification for Inpatient Patient admitted to: Observation With expected LOS: <2 Midnights Practitioner: I am a practitioner with admitting privileges, knowledge of patient current condition, hospital course, and medical plan of care. Services: Services provided to patient in accordance with Admission requirements found in Title 42 Section 412.3 of the Code of Federal Regulations Patient History Date of Service: 11/15/23 Reason for admission: Chest pain. History of Present Illness: 63-year-old male patient with medical history significant for CKD, hypertension, hyperlipidemia, gout, diabetes type 2, who was evaluated for episode of chest pain. He reported referral chest pain about 3 days duration but latest pain is about 3-4 in intensity. Pain is retrosternal and location with no radiation to the jaw and left arm. Because of concerns for ACS and his comorbid condition he was admitted for workup. He also did have poorly controlled blood pressure. He denies fever, chills, rigor, nausea, vomiting, comfortable. Allergies No Known Allergies Allergy (Verified 11/05/22 10:51) Home Medications: Aspirin 81 mg PO DAILY 07/16/21 Ferrous Sulfate 325 mg PO DAILY 07/16/21 Nitroglycerin 0.4 mg PO PRN PRN 08/23/21 Clopidogrel Bisulfate [Plavix*] 75 mg PO DAILY 08/26/21 Atorvastatin Calcium 40 mg PO BEDTIME 11/15/23 Glimepiride 1 tab PO DAILY 11/15/23 Hydralazine [Apresoline*] 25 mg PO TID 11/15/23 Icosapent Ethyl [Vascepa] 2 cap PO BID 11/15/23 Omeprazole [Prilosec] 1 cap PO DAILY 11/15/23 Testosterone Cypionate [Testone Cik] 200 mg IM EVERY 7TH DAY 11/15/23 calcitrioL [Rocaltrol] 1 cap PO DAILY 11/15/23 carvediloL [Coreg*] 25 mg PO BID 11/15/23 - Past Medical/Surgical History Has patient received pneumonia vaccine in the past: Yes Diabetic: Yes -: Hypertension -: DM type 2 -: Chronic kidney disease -: CAD with prior stentx2 -: Hyperlipidemia -: Anemia of chronic disease with iron deficiency -: GERD -: cardiac stentsx2 -: cataract left eye Psychosocial/ Personal History: Patient lives at home. He is - Family History Mother -: Diabetes Father -: Heart disease Notes: MA- Brother -: Diabetes - Social History Smoking Status: Never smoker Alcohol use: Yes CD- Drugs: No Caffeine use: Yes Place of Residence: Home Review of Systems General: Unremarkable Eyes: Unremarkable ENT: Unremarkable Respiratory: Unremarkable Cardiovascular: Chest Pain Gastrointestinal: Unremarkable Genitourinary: Unremarkable Musculoskeletal: Unremarkable Integumentary: Unremarkable Neurological: Unremarkable Lymphatics: Unremarkable Physical Examination - Vital Signs Temperature: 98.5 F Blood Pressure: 173/78 Pulse: 62 Respirations: 15 - Physical Exam General: Alert, Oriented x3 HEENT: Atraumatic Neck: Supple Respiratory: Normal air movement Cardiovascular: Regular rate/rhythm, Normal S1 S2 Gastrointestinal: Soft and benign Musculoskeletal: No swelling Neurological: Normal speech, Normal strength at 5/5 x4 extr - Studies Laboratory Data (last 24 hrs) 11/15/23 11/15/23 11/15/23 00:17 00:17 00:17 WBC 4.10 L Hgb 9.0 L Hct 26.2 L Plt Count 215 PT 11.9 INR 1.08 Sodium 139 Potassium 4.1 BUN 51 H Creatinine 1.85 H Glucose 129 H Magnesium 1.9 Total Bilirubin 0.3 AST 34 ALT 50 Alkaline Phosphatase 168 H Assessment and Plan - Plan Chest pain: Concerns for ACS entertained. Will monitor on telemetry, obtain echocardiogram and continue troponin trend every 4h x 3. Will have cardiology evaluate for workup. Aspirin and statin therapy to be continued Diabetes type 2: We will continue sliding scale insulin for glucose control, monitor blood sugar ACHS. Carb restricted diet to be continued. Hypertension: We will monitor vital signs per unit protocol and continue to hypertensive medications. History of gout: Will continue febuxostat. Hyperlipidemia: We will continue statin therapy. Prophylaxis: Lovenox for DVT prophylaxis. CODE STATUS: Full code. Disposition: We will treat his chest pain, rule out ACS and he will be discharged when deemed clinically stable. - Advance Directives Does patient have a Living Will: No Does patient have a Durable POA for Healthcare: No
[2023-11-15 04:05] VITALS: BMI 24.6
[2023-11-15] MEDS ORDERED: D50W 25 GM/50 ML SYRINGE IV PRN (06:16)
[2023-11-15] MEDS ORDERED: GLUCAGON 1 MG/VIAL IM PRN (06:16)
[2023-11-15] MEDS ORDERED: D10W 125 ML IV PRN (06:33)
[2023-11-15] MEDS: INSULIN REGULAR (HUMAN) 100 UNIT/ML SQ SCH (07:30)
[2023-11-15] MEDS: ENOXAPARIN 40 MG/0.4 ML SQ SCH (07:53)
[2023-11-15] MEDS: CALCITROL 0.25 MCG CAP PO SCH (07:54)
[2023-11-15] MEDS: PANTOPRAZOLE 40MG TABLET PO SCH (07:54)
[2023-11-15] MEDS: CLOPIDOGREL 75 MG TABLET PO SCH (07:54)
[2023-11-15] MEDS: GLIMEPIRIDE 2 MG TABLET PO SCH (07:55)
[2023-11-15] MEDS: HYDRALAZINE HCL 25 MG TABLET PO SCH (07:55)
[2023-11-15] MEDS: carvediloL 25 MG TAB PO SCH (07:55)
[2023-11-15] MEDS: icosapent ethyL 1 GM CAP PO SCH (08:26)
[2023-11-15] MEDS ORDERED: ASPIRIN 81 MG CHEWABLE TABLET PO SCH (09:00)
[2023-11-15] MEDS ORDERED: ASPIRIN EC 81 MG TAB PO SCH (09:00)
--- NOTE | 2023-11-15 12:19 | RAD REPORT ---
EXAM DESCRIPTION: Chest Single View CLINICAL HISTORY: CHEST PAIN COMPARISON: None TECHNIQUE: Single AP view of the chest. FINDINGS: Lung volumes adequate. Cardiac silhouette is normal in size. No pneumothorax. No large pleural effusion. No focal consolidation. No acute bony finding. IMPRESSION: No evidence of acute cardiopulmonary disease. Electronically signed by: Jagdish Montano MD 11/15/2023 12:32 AM TRANSCRIPTION Due to temporary technical issues with the PACS/Fluency reporting system, reports are being signed by the in house radiologists without review as a courtesy to insure prompt reporting. The interpreting radiologist is fully responsible for the content of the report.
--- NOTE | 2023-11-15 14:00 | P.PN ---
Subjective Date of Service: 11/15/23 Chief Complaint: Chest pain. Admitted for chest pain, reports mid substernal chest pain rated 5 out of 5, refuses p.o./IV analgesics. - Physical Exam General: Alert, Oriented x3 HEENT: Atraumatic Neck: Supple Respiratory: Normal air movement, diminished Cardiovascular: Regular rate/rhythm, Normal S1 S2 Gastrointestinal: Soft and benign Musculoskeletal: No swelling Neurological: Normal speech, Normal strength at 5/5 x4 extr Review of Systems per HPI Physical Examination - Vital Signs Temperature: 98.5 F Blood Pressure: 160/78 Pulse: 74 Respirations: 15 Pulse Ox (%): 98 - Studies Laboratory Data (last 24 hrs) 11/15/23 11/15/23 11/15/23 00:17 00:17 00:17 WBC 4.10 L Hgb 9.0 L Hct 26.2 L Plt Count 215 PT 11.9 INR 1.08 Sodium 139 Potassium 4.1 BUN 51 H Creatinine 1.85 H Glucose 129 H Magnesium 1.9 Total Bilirubin 0.3 AST 34 ALT 50 Alkaline Phosphatase 168 H Assessment And Plan - Plan Assessment plan chest pain rule out [place] Acute on chronic heart failure BNP 1566 Concerns for ACS entertained. Will monitor on telemetry, obtain echocardiogram and continue troponin trend every 4h x 3. Will have cardiology evaluate for workup. Aspirin and statin therapy to be continued Echo ordered Diamox added daily Acute on chronic kidney injury likely secondary to prerenal CHF BUN 51 creatinine 1.85, trend kidney function avoid nephrotoxic medication Diabetes type 2: We will continue sliding scale insulin for glucose control, monitor blood sugar ACHS. Carb restricted diet to be continued. Essential hypertension: We will monitor vital signs per unit protocol and continue to hypertensive m edications. Microcytic anemia hemoglobin 9 hematocrit 26.2 History of gout: Will continue febuxostat. Hyperlipidemia: We will continue statin therapy. Prophylaxis: Lovenox for DVT prophylaxis. CODE STATUS: Full code. Disposition: We will treat his chest pain, rule out ACS and he will be discharged when deemed clinically stable. Discharge Plan: Home - Code Status/Comfort Care Code Status: Full Code Critical Care: No Time Spent Managing PTS Care (In Minutes): 35
--- NOTE | 2023-11-15 16:08 | P.DS ---
Admission Date: 11/15/23 Discharge Date: 11/16/23 Disposition: ROUTINE DISCHARGE Discharge Condition: FAIR Reason for Admission: Chest pain. Brief History of Present Illness: 63-year-old male patient with medical history significant for CKD, hypertension, hyperlipidemia, gout, diabetes type 2, who was evaluated for episode of chest pain. He reported referral chest pain about 3 days duration but latest pain is about 3-4 in intensity. Pain is retrosternal and location with no radiation to the jaw and left arm. Because of concerns for ACS and his comorbid condition he was admitted for workup. He also did have poorly controlled blood pressure. He denies fever, chills, rigor, nausea, vomiting, comfortable. - Physical Exam General: Alert, Oriented x3 HEENT: Atraumatic Neck: Supple Respiratory: Normal air movement Cardiovascular: Regular rate/rhythm, Normal S1 S2 Gastrointestinal: Soft and benign Musculoskeletal: No swelling Neurological: Normal speech, Normal strength at 5/5 x4 extr Hospital Course: 63 year old male with past medical history of CKD, hypertension, hyperlipidemia, gout, diabetes type 2, who was evaluated for episode of chest pain. He was noted to have have poorly controlled blood pressure. He was evaluated by cardiolgy for acute chest pain, elevated BNP. He was placed on Aspirin and statin therapy. Chest X ray IMPRESSION: No evidence of acute cardiopulmonary disease. Renal ultrasound IMPRESSION: Unremarkable renal sonogram Assessment Chest pain rule out [place] Acute on chronic heart failure elevated BNP Hypertension Cardiology Follow-up with cardiology in 1 to 2 weeks Assessment And Recommendation: 1. Chest pain. Known history of coronary artery disease. Pain has some typical features. I would recommend to perform coronary angiogram given the fact that he had a negative stress test within the past year. Continue baby aspirin. 2. Hypertension. Blood pressure is still elevated. Add amlodipine 5 mg daily and plan accordingly. 3. Dyslipidemia. Continue Lipitor 40 mg nightly. Continue home medicines as previously prescribed GOAL: Clear understanding of disease process INSTRUCTIONS: Physician Discharge Instructions: -DC IV and DC home -Follow-up with PCP in 1 to 2 weeks -Please call Dr. Godfrey at [phone] if any questions regarding hospital stay -Please call nursing station at [phone] if any nursing or medication questions -Return to the emergency room if symptoms worsen Diet: ADA, low sodium Activity: Fall precautions Vital Signs/Physical Exam: Temp Pulse Resp BP Pulse Ox 98.5 F 74 15 160/78 H 98 11/15/23 14:00 11/15/23 14:00 11/15/23 14:00 11/15/23 14:00 11/15/23 14:00 Laboratory Data at Discharge: WBC 4.10 thou/uL (4.3-10.9) L 11/15/23 00:17 Hgb 9.0 g/dL (13.6-17.9) L 11/15/23 00:17 Hct 26.2 % (39.6-49.0) L 11/15/23 00:17 Plt Count 215 thou/uL (152-406) 11/15/23 00:17 PT 11.9 SECONDS (9.5-12.5) 11/15/23 00:17 INR 1.08 11/15/23 00:17 Sodium 139 mEq/L (136-145) 11/15/23 00:17 Potassium 4.1 mEq/L (3.5-5.1) 11/15/23 00:17 BUN 51 mg/dL (7-18) H 11/15/23 00:17 Creatinine 1.85 mg/dL (0.70-1.30) H 11/15/23 00:17 Glucose 129 mg/dL (74-106) H 11/15/23 00:17 Magnesium 1.9 mg/dL (1.6-2.4) 11/15/23 00:17 Total Bilirubin 0.3 mg/dL (0.2-1.0) 11/15/23 00:17 AST 34 U/L (15-37) 11/15/23 00:17 ALT 50 U/L (16-61) 11/15/23 00:17 Alkaline Phosphatase 168 U/L (45-117) H 11/15/23 00:17 Home Medications: Aspirin 81 mg PO DAILY 07/16/21 Ferrous Sulfate 325 mg PO DAILY 07/16/21 Nitroglycerin 0.4 mg PO PRN PRN 08/23/21 Clopidogrel Bisulfate [Plavix*] 75 mg PO DAILY 08/26/21 Atorvastatin Calcium 40 mg PO BEDTIME 11/15/23 Glimepiride 1 tab PO DAILY PRN 11/15/23 Hydralazine [Apresoline*] 25 mg PO TID 11/15/23 Icosapent Ethyl [Vascepa] 2 cap PO BID 11/15/23 Omeprazole [Prilosec] 1 cap PO DAILY 11/15/23 Testosterone Cypionate [Testone Cik] 200 mg IM EVERY 7TH DAY 11/15/23 calcitrioL [Rocaltrol] 1 cap PO DAILY 11/15/23 carvediloL [Coreg*] 25 mg PO BID 11/15/23 Amlodipine [Norvasc*] 5 mg PO DAILY #30 tab 11/16/23 New Medications: Amlodipine [Norvasc*] 5 mg PO DAILY #30 tab Physician Discharge Instructions: -DC IV and DC home -Follow-up with PCP in 1 to 2 weeks -Follow-up with Cardiology in 1 to 2 weeks -Please call Dr. Godfrey at [phone] if any questions regarding hospital stay -Please call nursing station at [phone] if any nursing or medication questions -Return to the emergency room if symptoms worsen Followup: Harpal Jimenez MD [ACTIVE - CAN ADMIT] - Emely Lu NP [Primary Care Provider] - Time spent managing pt's care (in minutes): 55
[2023-11-15] MEDS: AMLODIPINE 5 MG TAB PO ONE (16:29)
[2023-11-15] MEDS: HYDRALAZINE HCL 20 MG/ML VIAL IV PRN (16:50)
--- NOTE | 2023-11-15 18:34 | P.PN ---
Date of Service: 11/15/23 Spoke with patient at length. He states his blood pressure has been poorly controlled. He has been getting more more blood pressure medications added onto his regimen and his blood pressure remains poorly controlled. He had been on amlodipine 10 mg twice a day because significant lower extremity edema so this was changed to losartan 50 mg twice a day. He had been taking carvedilol 12.5 mg twice a day. While taking losartan and carvedilol his blood pressure remained poorly controlled so his carvedilol was doubled. However, his blood pressure still was not controlled so hydralazine 25 mg 3 times daily was added. His blood pressure remained elevated and he started having chest pain so he came into the emergency room. Blood pressure medicines are still being adjusted at this time. His blood pressure is very labile. Will need to monitor him for secondary causes of hypertension.
[2023-11-15] MEDS: FUROSEMIDE 40 MG/4 ML VIAL IV ONE (18:37)
[2023-11-15] MEDS: FUROSEMIDE 20 MG/ 2ML VIAL IV ONE (18:51)
--- NOTE | 2023-11-15 19:51 | CON ---
Date of Consultation: 11/15/2023 Reason For Consultation: Chest pain. History Of Present Illness: This is a 63-year-old male, history of hypertension, coronary artery dis ease, dyslipidemia, diabetes, gout, status post PCI of the RCA and the left circumflex, presented wit h chest pain on and off, retrosternal, radiation to the jaw and left arm. Was hospitalized to rule o ut [place]. At the present time, he is chest pain free. Past Medical History: As outlined above in HPI. Medications: Refer reconciliation sheet for detailed list. Allergies: NO KNOWN DRUG ALLERGIES. Family History: No premature coronary artery disease or cancer. Social History: Does not smoke or drink. Does not use any drugs. Review of Systems: All systems were reviewed, they were negative except mentioned in HPI. Physical Examination: Vital Signs: Reviewed. Head and Neck: Pupils are equal, reactive to light. Intact eye movements. No JVD. No cervical lym phadenopathy. Neck is supple. Thyroid is not enlarged. Lungs: Clear to auscultation bilaterally. No rhonchi, wheezing, or crackles. No accessory muscle u se. Heart: Regular rate and rhythm. No extra sounds. Abdomen: Soft, nontender. Bowel sounds positive. No organomegaly. No masses or hernia. No rigidi ty or rebound. Extremities: No edema, clubbing, or cyanosis. Intact pulses. Skin: No rashes. Neurologic: Alert, awake, oriented x3. No acute focal deficits appreciated. Lymph Nodes: No cervical or axillary lymphadenopathy. Investigations: Troponins times 4 are negative. BUN 51, creatinine 1.85. Hemoglobin is 9.0. Assessment And Recommendation: 1.Chest pain. Known history of coronary artery disease. Pain has some typical features. I would r ecommend to perform coronary angiogram given the fact that he had a negative stress test within the p ast year. Continue baby aspirin. 2.Hypertension. Blood pressure is still elevated. Add amlodipine 5 mg daily and plan accordingly. 3.Dyslipidemia. Continue Lipitor 40 mg nightly. SR/MODL Voice ID: [id number] Report ID: [id number]
[2023-11-15] MEDS: ATORVASTATIN 40 MG TAB PO SCH (20:39)
[2023-11-15] MEDS ORDERED: ATORVASTATIN 40 MG TAB PO SCH (21:00)
[2023-11-15] MEDS: ACETAMINOPHEN 500 MG TAB PO PRN (23:19)
--- NOTE | 2023-11-15 23:23 | RAD REPORT ---
EXAM DESCRIPTION: US - Renal Ultrasound-Complete - 11/15/2023 8:03 pm CLINICAL HISTORY: Uncontrolled hypertension/LOUISE COMPARISON: Renal Ultrasound-Complete dated 04/23/2021 TECHNIQUE: Sonographic grayscale and color flow images of the kidneys and bladder were obtained. FINDINGS: Both kidneys are normal in size, shape, and echotexture. The right kidney measures 12.4 cm. No hydronephrosis, focal mass, or echogenic calculi. The left kidney measures 11 cm. No hydronephrosis, focal mass, or echogenic calculi. The urinary bladder is without gross abnormality seen. IMPRESSION: Unremarkable renal sonogram.
[2023-11-16 02:12] VITALS: O2SAT 96
[2023-11-16 07:46] LABS: Absolute Eosinophils 0.1 K/uL (0-0.5); Absolute Lymphocytes (CBC) 0.9 K/uL (0.7-4.9); Absolute Monocytes 0.4 K/uL (0.1-1.3); Absolute Neutrophil 2.3 K/uL (1.8-8.0); Basophils % 1.1 % (0-1.3); Eosinophils % 3.7 % (0-4.4); Hematocrit 29.6 % (39.6-49.0); Hemoglobin 10.2 g/dL (13.6-17.9); Lymphocytes % 24.8 % (15.3-44.8); MCH 34.1 pg (27.0-35.0); MCHC 34.3 g/dL (32.0-36.0); MCV 99.4 fL (80-100); MPV 8.2 fL (7.6-11.3); Monocytes % 11.1 % (3.3-12.3); Neutrophils % 59.3 % (41.7-73.7); Nucleated Red Blood Cells % 0.1 % (0-0); Platelets 237 thou/uL (152-406); RBC Red Blood Cell Count 2.98 M/uL (4.33-5.43); Red Cell Distribution Width 12.7 % (12.1-15.2)
[2023-11-16] MEDS ORDERED: GLIMEPIRIDE 2 MG TABLET PO SCH (08:00)
[2023-11-16 08:15] LABS: ALT/SGPT 38 U/L (16-61); AST/SGOT 18 U/L (15-37); Albumin 3.7 g/dL (3.4-5.0); Albumin/Globulin Ratio 1.1 (1.1-1.8); Alkaline Phosphatase 111 U/L (45-117); Anion Gap 9.3 mEq/L (5.0-15.0); BUN Blood Urea Nitrogen 40 mg/dL (7-18); Bicarbonate 20 mEq/L (21-32); Bilirubin Total 0.5 mg/dL (0.2-1.0); C-Reactive Protein < 2.90 mg/L (<3.00); Globulin 3.4 g/dL (2.3-3.5); Glomerular Filtration Rate 36 ml/min (=/>90); Glucose Level 122 mg/dL (74-106); HDL Cholesterol 46 mg/dL (40-60); LDL Cholesterol, Calculated 28 mg/dL (<130); LDL Cholesterol,Calc NonReport 28; Magnesium 1.8 mg/dL (1.6-2.4); NT PRO-BNP 2091 pg/mL (<125); Phosphorus 3.4 mg/dL (2.5-4.9); Potassium 4.3 mEq/L (3.5-5.1); Protein, Total 7.1 g/dL (6.4-8.2); Sodium Level 138 mEq/L (136-145)
[2023-11-16] MEDS: ASPIRIN 81 MG CHEWABLE TABLET PO SCH (10:05)
[2023-11-16] MEDS: AMLODIPINE 5 MG TAB PO SCH (10:06)
[2023-11-16] MEDS: FUROSEMIDE 20 MG/ 2ML VIAL IV SCH (10:07)
[2023-11-16] MEDS ORDERED: acetaZOLAMIDE 250 MG TAB PO SCH (14:30)
--- NOTE | 2023-11-16 16:24 | PN ---
Date of Progress Note: 11/16/2023 Subjective: Seen at bedside. Clinically doing well. Does not have any chest pain or shortness of b reath. He is moving around. Completely asymptomatic. Review of Systems: No chest pain, shortness of breath, orthopnea, cough. No nausea, vomiting, diarrhea. All other syst ems reviewed are negative. Physical Examination: Vital Signs: Reviewed. Head and Neck: Pupils are equal, reactive to light. Intact eye movements. No JVD. No cervical lym phadenopathy. Neck is supple. Thyroid is not enlarged. Lungs: Clear to auscultation bilaterally. No rhonchi, wheezing, or crackles. No accessory muscle u se. Heart: Regular rate and rhythm. No extra sounds. Abdomen: Soft, nontender. Bowel sounds positive. No organomegaly. No masses or hernia. No rigidi ty or rebound. Extremities: No edema, clubbing, or cyanosis. Intact pulses. Skin: No rash or nodule. Neurologic: Alert, awake, oriented x3. No acute focal deficits appreciated. Investigations: Cardiac enzymes are negative. BUN is 40, creatinine is 2, and hemoglobin is 10.2. Assessment And Recommendations: 1.Chest pain. Negative cardiac enzymes. Known history of coronary artery disease. At this point, the patient has been asymptomatic. He can be released. Follow up with me in the office next week an d plan for a stress test. 2.Hypertensive crisis. Blood pressure is improving. Recommend to restart amlodipine at 5 mg and in crease it to twice a day. If blood pressure continues to be under control, the patient can be releas ed from cardiology standpoint. Follow up with me in the office within 1 week. 3.Dyslipidemia. Continue statin. SR/MODL Voice ID: [id number] Report ID: [id number]
[2023-11-16 16:41] VITALS: BP 153/75; TEMP 97.7
--- NOTE | 2023-11-16 17:09 | EKG ---
Test Date: 2023-11-14 Test Time: 23:51:18 Process Trainer: TL MEASUREMENT RESULTS: Intervals: Rate: 76 AL: 178 QRSD: 96 QT: 386 QTc: 434 [place]: P: 66 AL: 178 QRS: 83 T: 26 INTERPRETIVE STATEMENTS: Normal sinus rhythm Left ventricular hypertrophy with repolarization abnormality Abnormal ECG Compared to ECG 03/11/2023 14:28:06 Left ventricular hypertrophy now present Early repolarization now present ST (T wave) deviation no longer present Electronically Signed On 11-16-23 17:04:01 SELLING UNDERWRITER by Harpal Jimenez
--- NOTE | 2023-11-17 06:55 | ECHO ---
HEIGHT: 5 ft 8 in WEIGHT: 160 lb 0 oz DATE OF STUDY: 11/16/[address]: Eb Reyes MD 2-DIMENSIONAL: YES M.MODE: YES DOPPLER: YES COLOR FLOW: YES TDS: PORTABLE: YES DEFINITY: BUBBLE STUDY: DIAGNOSIS: CHEST PAIN EVALUATION CARDIAC HISTORY: CATHERIZATION: SURGERY: PROSTHETIC VALVE: PACEMAKER: MEASUREMENTS (cm) DIASTOLIC (NORMALS) SYSTOLIC (NORMALS) IVSd 1.0 (0.6-1.2) LA Diam 3.8 (1.9-4.0) LVEF 69% LVIDd 4.6 (3.5-5.7) LVIDs 2.8 (2.0-3.5) %FS 39% LVPWd 1.1 (0.6-1.2) Ao Diam 2.7 (2.0-3.7) 2 DIMENSIONAL ASSESSMENT: RIGHT ATRIUM: NORMAL LEFT ATRIUM: NORMAL RIGHT VENTRICLE: NORMAL LEFT VENTRICLE: LEFT VENTRICULAR HYPERTROPHY TRICUSPID VALVE: MILD TRICUSPID REGURGITAITON MITRAL VALVE: NORMAL PULMONIC VALVE: NORMAL AORTIC VALVE: THICKENED AORTIC VALVE, NO AORTIC STENOSIS PERICARDIAL EFFUSION: NONE AORTIC ROOT: NORMAL LEFT VENTRICULAR WALL MOTION: NORMAL DOPPLER/COLOR FLOW: SEE BELOW COMMENTS: 1. NORMAL LEFT VENTRICULAR EJECTION FRACTION 60-65% WITH NORMAL WALL MOTION 2. MILD CONCENTRIC LEFT VENTRICULAR HYPERTROPHY 3. MILD TRICUSPID REGURGITATION TECHNOLOGIST: CHAVO SALGADO
[2023-11-26 15:17] LABS: PRA,LC/MS/MS 1.38 ng/mL/h (0.25-5.82)
== END 2023-11-16 17:31 | disposition home or self-care (01) | DRG 291 ==
LOC: ER 23:45 → ERHOLD 11-15 01:46 → 4TH 11-15 02:13 → OBSVTOIN 11-15 18:34
PROVIDERS: ADMIT Internal Medicine Nephrology; ATTEND Hospitalist
DX: I13.0 Hypertensive heart and chronic kidney disease with heart failure and stage 1 through stage 4 chronic kidney disease, or unspecified chronic kidney disease (principal); I50.31 Acute diastolic (congestive) heart failure; I16.9 Hypertensive crisis, unspecified; N17.9 Acute kidney failure, unspecified; N18.9 Chronic kidney disease, unspecified; E11.22 Type 2 diabetes mellitus with diabetic chronic kidney disease; D63.1 Anemia in chronic kidney disease; D50.9 Iron deficiency anemia, unspecified; E78.5 Hyperlipidemia, unspecified; M10.9 Gout, unspecified; K21.9 Gastro-esophageal reflux disease without esophagitis; I25.2 Old myocardial infarction; I25.10 Atherosclerotic heart disease of native coronary artery without angina pectoris; Z95.5 Presence of coronary angioplasty implant and graft; Z79.82 Long term (current) use of aspirin; Z79.02 Long term (current) use of antithrombotics/antiplatelets; Z79.899 Other long term (current) drug therapy
CPT/HCPCS: 36415; 71045; 76770; 80048; 80053; 80061; 80076; 82533; 82947; 83036; 83540; 83735; 83880; 84100; 84244; 84439; 84443; 84484; 85025; 85610; 86140; 93005; 93306; 99285; G0378; J0360; J1650; J1940